=== PATIENT | male | born 1935 | race Caucasian/White ===

== ENCOUNTER 2018-09-01 14:25 | Inpatient (IN) | payer MEDICARE, SELFPAY ==
[2018-09-01 14:44] VITALS: BP 139/72; PULSE 68; RESP 16; TEMP 36.7; O2SAT 95; BMI 34.8
--- NOTE | 2018-09-01 14:44 | NURSING ---
pt arrived from [place] via cot
[2018-09-01 16:20] VITALS: BMI 34.7
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
--- NOTE | 2018-09-01 21:15 | RAD_ITS ---
STUDY: X-RAY - ABDOMEN/PELVIS REASON FOR EXAM: Male, 83 years old. Abdominal distention. TECHNIQUE: For frontal images of the abdomen were obtained. COMPARISON: None. FINDINGS: Normal visualized lung bases. There is a distended gas-filled loop of colon within the right abdomen. There is no demonstrated free abdominal air. The visualized liver, spleen and kidneys are grossly normal in size and morphology. Normal soft tissue structures. There are bilateral total hip arthroplasties in place. RAD/Abdomen Single View (Portable) IMPRESSION: Findings suspicious for a colonic obstruction. Electronically Signed: Cookie Wilder MD at 21:50 EST Tel , Service support ,
--- NOTE | 2018-09-01 21:15 | NURSING ---
Pt arrived with duragesic patch on right shoulder but had no order for it. New order to DC patch. Patch removed and flushed down toilet with ULISES Mehta.
--- NOTE | 2018-09-01 22:16 | NURSING ---
Dr. Henriquez updated on KUB results. NO for CT with contrast of abd and pelvis.
[2018-09-01] MEDS: Menthol/Lanolin/Calamine/Znox 113 GM Tube 1 APPLIC TOPICAL (22:30)
[2018-09-01] MEDS: Nystatin Powder 15gm Bottle 1 APPLIC TOPICAL (22:31)
[2018-09-02] MEDS: Polyethylene Glycol 3350 17 GM PACKET PO (05:25)
[2018-09-02] MEDS: Enoxaparin 40 MG/0.4 ML Syringe SC (05:25)
[2018-09-02] MEDS: Amiodarone 200 MG Tablet PO (05:25)
[2018-09-02] MEDS: Furosemide 40 MG Tablet PO (05:25)
[2018-09-02] MEDS: Pantoprazole Sodium 40 MG Tablet PO (05:25)
[2018-09-02] MEDS: Meloxicam 7.5 MG Tablet PO (05:25)
[2018-09-02] MEDS: Senna/Docusate Sodium 1 Tablet PO ×2 (05:26→18:12)
[2018-09-02] MEDS: oxyCODONE 5 MG Tablet PO (05:27)
[2018-09-02] MEDS: Nystatin Powder 15gm Bottle 1 APPLIC TOPICAL ×3 (05:29→20:02)
[2018-09-02] MEDS: Menthol/Lanolin/Calamine/Znox 113 GM Tube 1 APPLIC TOPICAL ×3 (05:30→20:02)
[2018-09-02 06:16] LABS: Absolute Lymphocyte Count 0.99 X10^3/ul (0.83-4.51); Absolute Neutrophil Count 3.7 X10^3/uL (2.0-7.7); Basophil# 0.04 X10^3/uL; Basophil% 0.7 % (0-1); Eosinophil# 0.47 X10^3/uL; Eosinophils% 7.8 % (0-5); Lymphocyte # 0.99 X10^3/ul (4.0); Lymphocyte % 16.5 % (19-41); Mean Corpuscular Hgb 31.6 pg (27.0-32.0); Mean Corpuscular Volume 98.8 fL (80-94); Mean Platelet Vol. 9.5 fl (6.2-12.0); Monocyte# 0.72 X10^3/uL; Neutrophil # 3.72 X10^3/uL (2.7-7.7); Neutrophil % 61.8 % (47-70); Platelet Count 299 K/mm3 (150-450); RBC Distribution Width CV 18.6 % (11.6-14.6); Red Blood Count 2.53 M/mm3 (4.6-6.2)
[2018-09-02 06:32] LABS: Anion Gap 10 (5-15); BUN 13 mg/dL (7-18); BUN/Creat Ratio 18.1 RATIO (10-20); Chloride 106 mmol/L (98-107); Creatinine, Serum 0.72 mg/dL (0.70-1.30); EST Glomerular Filtration Rate 112 mL/min (>60); Est Glom Filt Rate - Afr Amer 135 mL/min (>60); Estimated Creatinine Clearance 62.51 ml/min; Glucose 89 mg/dL (74-106); Potassium 3.2 mmol/L (3.5-5.1); Sodium Level 139 mmol/L (136-145)
[2018-09-02 06:45] LABS: POSITIVE COUNT NO; POSITIVE DIFFERENTIAL NO; POSITIVE MORPHOLOGY NO
[2018-09-02 09:35] VITALS: PULSE 75; RESP 18; O2SAT 98
[2018-09-02] MEDS: Tuberculin,Purif.prot.deriv. 50 TU/ML Vial 5 ML ID (10:09)
[2018-09-02] MEDS: Magnesium Citrate 300 ML PO (10:09)
--- NOTE | 2018-09-02 10:14 | CASEMGMT ---
Reviewed and approved attached social work student documentation. Leana CH, SUKHWINDER
--- NOTE | 2018-09-02 10:17 | CASEMGMT ---
Insurance Clinical information sent. Pending continued stay approval at this time. Auth#[id number] Leana CH, SUKHWINDER
--- NOTE | 2018-09-02 11:44 | NURSING ---
PT HAD A XTRA LARGE CLEAR EMESIS. REPORTED TO DERICK MCGILL
[2018-09-02 15:08] VITALS: BP 130/67; PULSE 73; RESP 20; TEMP 36.4; O2SAT 97
[2018-09-02] MEDS: Ondansetron ODT 4 MG Tablet PO (15:33)
--- NOTE | 2018-09-02 16:30 | NURSING ---
SOAP SUDS ENEMA GIVEN PER ORDER.
--- NOTE | 2018-09-02 16:46 | NURSING ---
Pt unable to consume oral contrast for CT. Dr Henriquez aware N.O. To consult general surg. Dr Vora requesting CT complete without contrast.
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
--- NOTE | 2018-09-02 22:52 | NURSING ---
Dr Henriquez and Dr Vora aware of CT results. Dr Henriquez ordered KUB for 0800 stat and SSE after KUB. Will continue to monitor and assess.
[2018-09-02] MEDS: Acetaminophen 500 MG Tablet 1000 MG PO (23:18)
[2018-09-03 06:00] LABS: ALB/GLOB Ratio 0.6 RATIO (0.9-2.4); AST(SGOT) 20 U/L (15-37); Alanine Aminotransfer ALT/SGPT 23 U/L (16-61); Albumin, Serum 2.2 g/dL (3.2-5.0); Alkaline Phosphatase 200 U/L (45-117); Anion Gap 8 (5-15); BUN 14 mg/dL (7-18); Calcium,Total 7.9 mg/dL (8.5-10.1); Chloride 106 mmol/L (98-107); Creatinine, Serum 0.64 mg/dL (0.70-1.30); EST Glomerular Filtration Rate 128 mL/min (>60); Est Glom Filt Rate - Afr Amer 155 mL/min (>60); Estimated Creatinine Clearance 62.51 ml/min; Globulin 3.9 g/dL (2.2-4.2); Glucose 93 mg/dL (74-106); Potassium 3.8 mmol/L (3.5-5.1); Protein, Total 6.1 g/dL (6.4-8.2); Sodium Level 140 mmol/L (136-145)
[2018-09-03 06:02] LABS: Lactic Acid 0.8 mmol/L (0.4-2.0)
[2018-09-03 06:39] VITALS: BP 146/74; PULSE 71; RESP 16; TEMP 36.8; O2SAT 97
[2018-09-03] MEDS: Polyethylene Glycol 3350 17 GM PACKET PO (06:41)
[2018-09-03] MEDS: Furosemide 40 MG Tablet PO (06:41)
[2018-09-03] MEDS: Enoxaparin 40 MG/0.4 ML Syringe SC (06:41)
[2018-09-03] MEDS: Bisacodyl 5 MG Tablet 10 MG PO (06:42)
[2018-09-03] MEDS: Pantoprazole Sodium 40 MG Tablet PO (06:42)
[2018-09-03] MEDS: Amiodarone 200 MG Tablet PO (06:42)
[2018-09-03] MEDS: Senna/Docusate Sodium 1 Tablet 2 TABLET PO (06:42)
[2018-09-03] MEDS: Nystatin Powder 15gm Bottle 1 APPLIC TOPICAL (06:43)
[2018-09-03] MEDS: Menthol/Lanolin/Calamine/Znox 113 GM Tube 1 APPLIC TOPICAL (06:43)
[2018-09-03] MEDS: Meloxicam 7.5 MG Tablet PO (06:44)
[2018-09-03 06:51] LABS: Absolute Lymphocyte Count 1.07 X10^3/ul (0.83-4.51); Absolute Neutrophil Count 3.7 X10^3/uL (2.0-7.7); Basophil# 0.05 X10^3/uL; Basophil% 0.8 % (0-1); Differential Indicated SCAN CRITERIA MET; Eosinophil# 0.56 X10^3/uL; Eosinophils% 8.9 % (0-5); Hematocrit 26.3 % (40-54); Hemoglobin 8.2 g/dl (13.0-16.5); Lymphocyte # 1.07 X10^3/ul (4.0); Lymphocyte % 16.9 % (19-41); Mean Corp Hgb Conc 31.2 g/gl (32-36); Mean Corpuscular Hgb 31.3 pg (27.0-32.0); Mean Corpuscular Volume 100.4 fL (80-94); Mean Platelet Vol. 9.2 fl (6.2-12.0); Monocyte# 0.92 X10^3/uL; Monocyte% 14.6 % (0-10); Neutrophil # 3.65 X10^3/uL (2.7-7.7); Neutrophil % 57.7 % (47-70); POSITIVE COUNT NO; POSITIVE DIFFERENTIAL NO; POSITIVE MORPHOLOGY YES; Platelet Count 346 K/mm3 (150-450); RBC Distribution Width CV 19.1 % (11.6-14.6); RBC Distribution Width SD 66.4 fl (35.1-43.9); Red Blood Count 2.62 M/mm3 (4.6-6.2); White Blood Count 6.3 K/mm3 (4.4-11.0)
[2018-09-03 07:30] LABS: Anisocytosis 1+; Differential Comment SCAN; Hypochromasia 1+; Microcytosis 1+; Polychromasia 1+
--- NOTE | 2018-09-03 10:20 | RAD_ITS ---
STUDY: X-RAY - ABDOMEN/PELVIS REASON FOR EXAM: Male, 83 years old. Constipation. TECHNIQUE: Two AP supine views of the abdomen and pelvis. COMPARISON: Comparison is made with prior study dated September 01, 2018. FINDINGS: There is dilatation of the cecum. The cecum measures 19.1 cm in transverse dimension. There is also evidence of mild dilatation of the transverse colon. Fecal material is seen in the rectosigmoid colon. A filter is seen within the inferior vena cava. The visualized liver, spleen and kidneys are grossly normal in size and morphology. Normal soft tissue structures. The patient is status post bilateral hip replacement. RAD/Abdomen Single View IMPRESSION: Distended cecum as described. Decompression of the cecum is recommended. Electronically Signed: Bruce Allan MD at 10:57 EST , Service support ,
--- NOTE | 2018-09-03 11:42 | NURSING ---
Addendum entered by Joaquina Blackwell 09/03/18 14:40: Pt to be picked up by [facility] and taken to [facility] at 3:30. Patient and family aware. Original Note: Addendum entered by Joaquina Blackwell 09/03/18 11:48: Message left for patient's , Siomara, regarding pending transfer. Original Note: Dr. Henriquez reviewed KUB results, NO to send to [place] for treatment. Dr. Henriquez to call hospital transfer line for [place] to get patient transferred.
--- NOTE | 2018-09-03 12:07 | NURSING ---
NO to make patient NPO, start D5 1/2 NS at 60mL/hr continuously.
[2018-09-03] MEDS: oxyCODONE 5 MG Tablet PO (12:19)
[2018-09-03] MEDS: Dext 5%-0.45% NS 1,000 ML 60 ML IV (12:33)
--- NOTE | 2018-09-03 13:25 | NURSING ---
Was consulted to see patient for increased drainage from the old trach site. Nurse states that patient is being transferred back to [place] today.
--- NOTE | 2018-09-03 14:02 | NURSING ---
Pt still in room so assessed the old trach site. removed dressing. there was a small amount of crusted drainage noted on the old dressing. so redness noted to the area around the trach site. no signs of infection and very minimal drainage. cleansed with soap and water. pat dry and applied a dry dressing. pt tolerated well. denies discomfort or needs. present at bedside.
--- NOTE | 2018-09-03 14:48 | CASEMGMT ---
Insurance Continued stay approved with next update due on 09/09/18. Auth#[id number] Leana CH, SUKHWINDER
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
[2018-09-03 15:19] VITALS: BP 139/52; PULSE 78; RESP 20; TEMP 36.9; O2SAT 93
--- NOTE | 2018-09-03 16:02 | CASEMGMT ---
Brief interview for mental status (BIMS) and resident mood interview (PHQ-9) completed on this day. BIMS score 15. PHQ-9 score 11/08
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
--- NOTE | 2018-09-04 14:34 | CASEMGMT ---
Insurance Notified insurance of resident discharge on 09/03/18 to [facility]. Auth#[id number] Leana CH, SUKHWINDER
--- NOTE | 2018-09-12 11:51 | MDS.RN ---
Information for the mds was obtained from review of the clinical record, interview of resident, staff, and direct observation of resident's care.
== END 2018-09-03 15:45 | disposition short-term general hospital (02) | DRG 560 ==
PROVIDERS: Admitting Provider Family Medicine Geriatric Medicine; Referring Provider Family Medicine Geriatric Medicine; Visit Provider Family Medicine Geriatric Medicine
DX: S72.451D Displaced supracondylar fracture without intracondylar extension of lower end of right femur, subsequent encounter for closed fracture with routine healing (principal); K56.7 Ileus, unspecified; S42.301D Unspecified fracture of shaft of humerus, right arm, subsequent encounter for fracture with routine healing; S72.302D Unspecified fracture of shaft of left femur, subsequent encounter for closed fracture with routine healing; S22.20XD Unspecified fracture of sternum, subsequent encounter for fracture with routine healing; S32.592D Other specified fracture of left pubis, subsequent encounter for fracture with routine healing; S82.101 Unspecified fracture of upper end of right tibia; S82.301E Unspecified fracture of lower end of right tibia, subsequent encounter for open fracture type I or II with routine healing; S42.101D Fracture of unspecified part of scapula, right shoulder, subsequent encounter for fracture with routine healing; S32.10XD Unspecified fracture of sacrum, subsequent encounter for fracture with routine healing; S22.49XD Multiple fractures of ribs, unspecified side, subsequent encounter for fracture with routine healing; S32.009D Unspecified fracture of unspecified lumbar vertebra, subsequent encounter for fracture with routine healing; V49.9XXD Car occupant (driver) (passenger) injured in unspecified traffic accident, subsequent encounter; I10 Essential (primary) hypertension; M19.90 Unspecified osteoarthritis, unspecified site; Z93.0 Tracheostomy status; E87.6 Hypokalemia; K21.9 Gastro-esophageal reflux disease without esophagitis; B35.4 Tinea corporis; I48.91 Unspecified atrial fibrillation; K63.89 Other specified diseases of intestine; D64.9 Anemia, unspecified
CPT/HCPCS: 36415; 74018; 80048; 80053; 83605; 85025; 92507; 92526; 92610; 97110; 97163; 97167; 97530; 97802; J7799

== ENCOUNTER → 2018-09-02 10:50 | Outpatient (CLI) | payer MEDICARE, SELFPAY ==
[2018-09-01 16:20] VITALS: BMI 34.7
--- NOTE | 2018-09-02 11:13 | CT_ITS ---
We are attempting to reach Hank Henriquez MD to discuss findings. An addendum with communication details will be sent when the communication is complete. STUDY: CT ABDOMEN AND PELVIS WITHOUT CONTRAST REASON FOR EXAM: Male, 83 years old. Suspicious colonic obstruction. RADIATION DOSAGE (If Supplied By Facility): CTDIvol = ( 33.67 ) mGy, DLP = ( 1833.70 ) mGycm TECHNIQUE: Transaxial images were obtained from the dome of the diaphragm to the symphysis pubis without oral contrast, and without intravenous contrast. Sagittal and coronal images were reconstructed. Individualized dose optimization techniques were used for this CT. COMPARISON: None. FINDINGS: There are bilateral pleural effusions, right greater than left. The visualized portions of the heart are within normal limits. Please note the lack of intravenous contrast limits evaluation of solid visceral organs. Normal liver. Normal gallbladder and extrahepatic biliary system. Normal spleen. Normal pancreas. Normal bilateral adrenal glands. Normal right kidney. Normal left kidney. There is a small hiatal hernia. Normal small intestine. There is dilatation of the cecum. There is mild circumferential wall thickening of the colon. There is intramural gas noted within the cecum consistent with pneumatosis intestinalis. The appendix is visualized and appears normal. There is diffuse atherosclerotic calcification of the abdominal aorta, without a demonstrated aneurysm. There is an IVC filter in place. Normal retroperitoneum. There appears to be a Powell catheter within the urinary bladder. Normal abdominal wall. The bones are diffusely demineralized. There are bilateral L1, L2, L4 and L5 transverse process fractures. There is a right L3 transverse process fracture noted as well. There are bilateral sacral fractures. In addition there is a fracture within the medial wall of the right acetabulum associated with right superior and inferior pubic rami fractures. There are right fifth, sixth, seventh, eighth and 12th rib fractures several associated with periosteal bone formation. There are bilateral hip arthroplasties obscuring anatomic detail within the pelvis. CT/Abdomen/Pelvis without Cont IMPRESSION: Dilated cecum may be secondary to a cecal ileus associated with pneumatosis intestinalis. Circumferential wall thickening of the colon this may be secondary to its incompletely distended state however cannot exclude underlying colitis. Multiple right rib fractures associated with a right pleural effusion. Bilateral sacral fractures, may reflect sacral insufficiency fractures. Comminuted left superior and inferior pubic rami fractures associated with a fracture involving the medial wall of the left acetabulum. L1-L5 transverse process fractures. Electronically Signed: Cookie Wilder MD at 17:40 EST Tel , Service support ,
== END ==
PROVIDERS: Referring Provider Family Medicine Geriatric Medicine; Visit Provider Family Medicine Geriatric Medicine
DX: K63.89 Other specified diseases of intestine (principal); K44.9 Diaphragmatic hernia without obstruction or gangrene; S22.41XA Multiple fractures of ribs, right side, initial encounter for closed fracture; J90 Pleural effusion, not elsewhere classified; S32.10XA Unspecified fracture of sacrum, initial encounter for closed fracture; S32.592A Other specified fracture of left pubis, initial encounter for closed fracture; S32.472A Displaced fracture of medial wall of left acetabulum, initial encounter for closed fracture; S32.019A Unspecified fracture of first lumbar vertebra, initial encounter for closed fracture; S32.029A Unspecified fracture of second lumbar vertebra, initial encounter for closed fracture; S32.039A Unspecified fracture of third lumbar vertebra, initial encounter for closed fracture; S32.049A Unspecified fracture of fourth lumbar vertebra, initial encounter for closed fracture; S32.059A Unspecified fracture of fifth lumbar vertebra, initial encounter for closed fracture; X58.XXXA Exposure to other specified factors, initial encounter; Y93.9 Activity, unspecified; Y92.9 Unspecified place or not applicable
CPT/HCPCS: 74176; Q9967

== ENCOUNTER 2018-09-10 14:57 | Inpatient (IN) | payer MEDICARE, SELFPAY ==
[2018-09-10 15:04] VITALS: BP 156/69; PULSE 72; RESP 18; TEMP 37; O2SAT 98
[2018-09-10 16:17] VITALS: BMI 29.8
[2018-09-10 16:22] VITALS: BMI 29.8
--- NOTE | 2018-09-10 17:01 | NURSING ---
Pt arrived at 1450 via cot.
[2018-09-10] MEDS: Bisacodyl 5 MG Tablet 10 MG PO (17:59)
[2018-09-10] MEDS: APIXABAN 5 MG TABLET 10 MG PO (18:00)
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
[2018-09-10] MEDS: Menthol/Lanolin/Calamine/Znox 113 GM Tube 1 APPLIC TOPICAL (21:02)
[2018-09-10] MEDS: Nystatin Powder 15gm Bottle 1 APPLIC TOPICAL (21:03)
[2018-09-10] MEDS: Acetaminophen 500 MG Tablet 1000 MG PO (21:05)
--- NOTE | 2018-09-10 22:21 | NURSING ---
Pt c/o of aching 7/10 pain to BLE and BUE. Medicated with 1,000mg Tylenol @ 2104. Dr Henriquez notified. N.O. for oxyir 5mg q4hr PRN. Will continue to monitor.
[2018-09-10] MEDS: oxyCODONE 5 MG Tablet PO (22:30)
[2018-09-11] MEDS: Menthol/Lanolin/Calamine/Znox 113 GM Tube 1 APPLIC TOPICAL ×3 (05:01→19:56)
[2018-09-11] MEDS: Nystatin Powder 15gm Bottle 1 APPLIC TOPICAL ×3 (05:01→19:57)
[2018-09-11] MEDS: APIXABAN 5 MG TABLET 10 MG PO ×2 (05:02→16:36)
[2018-09-11] MEDS: Amiodarone 200 MG Tablet PO (05:02)
[2018-09-11] MEDS: Lidocaine 5% Patch 1 PATCH TOPICAL (05:03)
[2018-09-11] MEDS: Pantoprazole Sodium 20 MG Tablet PO (05:03)
[2018-09-11] MEDS: Acetaminophen 500 MG Tablet 1000 MG PO ×3 (05:42→19:48)
[2018-09-11 07:15] LABS: Absolute Lymphocyte Count 1.07 X10^3/ul (0.83-4.51); Absolute Neutrophil Count 3.8 X10^3/uL (2.0-7.7); Basophil# 0.05 X10^3/uL; Basophil% 0.8 % (0-1); Eosinophil# 0.32 X10^3/uL; Eosinophils% 5.3 % (0-5); Hematocrit 27.3 % (40-54); Hemoglobin 8.8 g/dl (13.0-16.5); Lymphocyte # 1.07 X10^3/ul (4.0); Lymphocyte % 17.8 % (19-41); Mean Corp Hgb Conc 32.2 g/gl (32-36); Mean Corpuscular Hgb 31.9 pg (27.0-32.0); Mean Corpuscular Volume 98.9 fL (80-94); Mean Platelet Vol. 8.3 fl (6.2-12.0); Monocyte# 0.71 X10^3/uL; Monocyte% 11.8 % (0-10); Neutrophil # 3.82 X10^3/uL (2.7-7.7); Neutrophil % 63.5 % (47-70); Platelet Count 294 K/mm3 (150-450); RBC Distribution Width CV 18.9 % (11.6-14.6); RBC Distribution Width SD 67.7 fl (35.1-43.9); Red Blood Count 2.76 M/mm3 (4.6-6.2)
[2018-09-11 07:25] LABS: Anion Gap 5 (5-15); BUN 11 mg/dL (7-18); BUN/Creat Ratio 15.4 RATIO (10-20); Calcium,Total 8.1 mg/dL (8.5-10.1); Chloride 108 mmol/L (98-107); Creatinine, Serum 0.72 mg/dL (0.70-1.30); Differential Indicated SCAN CRITERIA MET; EST Glomerular Filtration Rate 112 mL/min (>60); Est Glom Filt Rate - Afr Amer 135 mL/min (>60); Estimated Creatinine Clearance 64.36 ml/min; Glucose 96 mg/dL (74-106); POSITIVE COUNT NO; POSITIVE DIFFERENTIAL NO; POSITIVE MORPHOLOGY YES; Potassium 3.4 mmol/L (3.5-5.1); Sodium Level 137 mmol/L (136-145)
[2018-09-11 08:21] LABS: Anisocytosis 1+; Schistocytes RARE
[2018-09-11] MEDS: Multivitamins,Therapeutic Tablet 1 TABLET PO (08:21)
[2018-09-11] MEDS: oxyCODONE 5 MG Tablet PO ×2 (09:50→23:41)
[2018-09-11 10:00] VITALS: PULSE 82
--- NOTE | 2018-09-11 10:51 | CASEMGMT ---
Brief interview for mental status (BIMS) and mood (PHQ-9) completed on this day. BIMS score 02/26. PHQ-9 score 08/10. Matt Blancas social work student
[2018-09-11] MEDS: Tuberculin,Purif.prot.deriv. 50 TU/ML Vial 5 ML ID (11:16)
--- NOTE | 2018-09-11 14:34 | NURSING ---
Addendum entered by Melanie Trammell 09/13/18 15:15: [place] and sutures removed per Colt SEPULVEDA who received MD order Original Note: Pt staple and sutures removed per order. Incisions appear well approximated with no drainage noted. Pt tolerated procedure well with no complaints. Pt in bed with head of bed elevated and call light within reach.
--- NOTE | 2018-09-11 15:19 | CASEMGMT ---
Reviewed and approved attached social work student documentation. Leana CH, SUKHWINDER
[2018-09-11 16:00] VITALS: BP 158/85; PULSE 70; RESP 16; TEMP 36.4; O2SAT 96
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
[2018-09-11] MEDS: Bisacodyl 5 MG Tablet 10 MG PO (16:37)
--- NOTE | 2018-09-11 18:40 | NURSING ---
contacted Dr. Westbrook's office multiple times (3) today, no response at end of day, alyssa and sutures removed per Dr. Henriquez, try to contact regarding when to F/U
[2018-09-12] MEDS: Acetaminophen 500 MG Tablet 1000 MG PO ×2 (04:41→17:25)
[2018-09-12] MEDS: Lidocaine 5% Patch 1 PATCH TOPICAL (04:42)
[2018-09-12] MEDS: Pantoprazole Sodium 20 MG Tablet PO (04:42)
[2018-09-12] MEDS: Amiodarone 200 MG Tablet PO (04:42)
[2018-09-12] MEDS: Bisacodyl 5 MG Tablet 10 MG PO ×2 (04:42→17:14)
[2018-09-12] MEDS: APIXABAN 5 MG TABLET 10 MG PO ×2 (04:42→17:13)
[2018-09-12] MEDS: Senna/Docusate Sodium 1 Tablet 2 TABLET PO ×2 (04:42→17:12)
[2018-09-12] MEDS: Polyethylene Glycol 3350 17 GM PACKET PO (04:53)
[2018-09-12] MEDS: Nystatin Powder 15gm Bottle 1 APPLIC TOPICAL ×3 (04:55→20:51)
[2018-09-12] MEDS: Menthol/Lanolin/Calamine/Znox 113 GM Tube 1 APPLIC TOPICAL ×3 (04:55→20:50)
--- NOTE | 2018-09-12 08:25 | NURSING ---
NO to D/C lidoderm patch and start bacitracin to trach site BID.
[2018-09-12] MEDS: Iron Polysaccharide Complex 150 MG CAPSULE PO (08:41)
--- NOTE | 2018-09-12 09:32 | NURSING ---
Per pharmacyjulieth to crush MVI.
[2018-09-12] MEDS: Multivitamins,Therapeutic Tablet 1 TABLET PO (09:57)
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
--- NOTE | 2018-09-12 11:10 | RAD_ITS ---
STUDY: X-RAY - RIGHT KNEE REASON FOR EXAM: Male, 83 years old. Fracture TECHNIQUE: AP and lateral view(s) of the knee. COMPARISON: None. FINDINGS: There is a total knee prosthesis. There is also a surgical plate and screws transfixing the comminuted fracture distal diaphysis metaphysis of the femur which is only partially included on [id number]. There is an oblique fracture with mild periosteal reaction at the proximal diaphysis of the fibula. There is no visualized periosteal reaction or evidence of healing at the level of the femur fracture. There is significant generalized osteopenia. Small bony density superior to the patella which are postsurgical versus tiny avulsion fractures. There is also intramedullary shanta within the tibia.. RAD/Knee 1 or 2 Views IMPRESSION: Orthopedic knee hardware and fractures as above Electronically Signed: Christiano Brownlee, at 17:56 EST Tel , Service support ,
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
--- NOTE | 2018-09-12 11:11 | NURSING ---
Fax order from Dr. Westbrook: right humerous xray, BL femur xrays, right knee xray and right tib/fib xray. Send results to Dr. Russell Westbrook, [address] [place], [address]
[2018-09-12] MEDS: oxyCODONE 5 MG Tablet PO (11:27)
[2018-09-12 15:25] VITALS: BP 145/78; PULSE 71; RESP 20; TEMP 37; O2SAT 93
[2018-09-12 20:58] VITALS: PULSE 73; RESP 18; O2SAT 96
[2018-09-12] MEDS: BACITRACIN 15 GM Tube 1 APPLIC TOPICAL (22:26)
[2018-09-13] MEDS: oxyCODONE 5 MG Tablet PO ×3 (01:47→20:34)
[2018-09-13] MEDS: Nystatin Powder 15gm Bottle 1 APPLIC TOPICAL ×3 (05:58→19:38)
[2018-09-13] MEDS: Menthol/Lanolin/Calamine/Znox 113 GM Tube 1 APPLIC TOPICAL ×3 (05:58→19:39)
[2018-09-13] MEDS: BACITRACIN 15 GM Tube 1 APPLIC TOPICAL ×2 (05:59→19:33)
[2018-09-13] MEDS: Bisacodyl 5 MG Tablet 10 MG PO ×2 (06:00→17:02)
[2018-09-13] MEDS: Pantoprazole Sodium 20 MG Tablet PO (06:00)
[2018-09-13] MEDS: APIXABAN 5 MG TABLET 10 MG PO ×2 (06:00→17:02)
[2018-09-13] MEDS: Senna/Docusate Sodium 1 Tablet 2 TABLET PO ×2 (06:00→17:02)
[2018-09-13] MEDS: Amiodarone 200 MG Tablet PO (06:00)
[2018-09-13 07:21] LABS: Anion Gap 8 (5-15); BUN 15 mg/dL (7-18); BUN/Creat Ratio 25.8 RATIO (10-20); Calcium,Total 8.3 mg/dL (8.5-10.1); Chloride 106 mmol/L (98-107); Creatinine, Serum 0.58 mg/dL (0.70-1.30); EST Glomerular Filtration Rate 142 mL/min (>60); Est Glom Filt Rate - Afr Amer 172 mL/min (>60); Estimated Creatinine Clearance 64.36 ml/min; Glucose 94 mg/dL (74-106); Potassium 3.7 mmol/L (3.5-5.1); Sodium Level 140 mmol/L (136-145)
[2018-09-13] MEDS: Iron Polysaccharide Complex 150 MG CAPSULE PO (08:15)
[2018-09-13] MEDS: Multivitamins,Therapeutic Tablet 1 TABLET PO (08:16)
--- NOTE | 2018-09-13 11:41 | NURSING ---
This nurse in to assist patient with rolling off bedpan. Notice that the proximal part of his left hip incision was starting to open. This nurse applied two steri strips to incision at this time. Esther SEPULVEDA aware.
[2018-09-13] MEDS: Acetaminophen 500 MG Tablet 1000 MG PO (15:46)
[2018-09-13 16:00] VITALS: BP 146/76; PULSE 74; RESP 18; TEMP 36.8; O2SAT 98
[2018-09-14] MEDS: Amiodarone 200 MG Tablet PO (05:42)
[2018-09-14] MEDS: APIXABAN 5 MG TABLET 10 MG PO ×2 (05:42→17:02)
[2018-09-14] MEDS: Senna/Docusate Sodium 1 Tablet 2 TABLET PO ×2 (05:42→17:02)
[2018-09-14] MEDS: Bisacodyl 5 MG Tablet 10 MG PO ×2 (05:43→17:02)
[2018-09-14] MEDS: Polyethylene Glycol 3350 17 GM PACKET PO (05:43)
[2018-09-14] MEDS: Acetaminophen 500 MG Tablet 1000 MG PO (05:50)
[2018-09-14] MEDS: BACITRACIN 15 GM Tube 1 APPLIC TOPICAL ×2 (05:51→19:26)
[2018-09-14] MEDS: Pantoprazole Sodium 20 MG Tablet PO (05:52)
[2018-09-14] MEDS: Menthol/Lanolin/Calamine/Znox 113 GM Tube 1 APPLIC TOPICAL ×3 (05:58→19:27)
[2018-09-14] MEDS: Nystatin Powder 15gm Bottle 1 APPLIC TOPICAL ×3 (05:58→19:27)
[2018-09-14] MEDS: Multivitamins,Therapeutic Tablet 1 TABLET PO (08:05)
[2018-09-14] MEDS: Iron Polysaccharide Complex 150 MG CAPSULE PO (08:11)
[2018-09-14] MEDS: oxyCODONE 5 MG Tablet PO ×2 (08:13→17:03)
[2018-09-14 10:00] VITALS: PULSE 82; RESP 18; O2SAT 94
[2018-09-14 16:00] VITALS: BP 140/74; PULSE 72; RESP 18; TEMP 36.2; O2SAT 98
[2018-09-15] MEDS: oxyCODONE 5 MG Tablet PO ×4 (02:26→23:52)
[2018-09-15] MEDS: BACITRACIN 15 GM Tube 1 APPLIC TOPICAL ×2 (06:10→20:03)
[2018-09-15] MEDS: Bisacodyl 5 MG Tablet 10 MG PO ×2 (06:11→18:16)
[2018-09-15] MEDS: Amiodarone 200 MG Tablet PO (06:11)
[2018-09-15] MEDS: Senna/Docusate Sodium 1 Tablet 2 TABLET PO ×2 (06:11→18:16)
[2018-09-15] MEDS: Polyethylene Glycol 3350 17 GM PACKET PO (06:11)
[2018-09-15] MEDS: APIXABAN 5 MG TABLET 10 MG PO ×2 (06:11→18:17)
[2018-09-15] MEDS: Menthol/Lanolin/Calamine/Znox 113 GM Tube 1 APPLIC TOPICAL ×3 (06:12→20:01)
[2018-09-15] MEDS: Nystatin Powder 15gm Bottle 1 APPLIC TOPICAL ×3 (06:12→20:01)
[2018-09-15] MEDS: Pantoprazole Sodium 20 MG Tablet PO (06:21)
[2018-09-15] MEDS: Iron Polysaccharide Complex 150 MG CAPSULE PO (08:05)
[2018-09-15] MEDS: Multivitamins,Therapeutic Tablet 1 TABLET PO (09:32)
[2018-09-15 10:45] VITALS: PULSE 77; RESP 18; O2SAT 96
--- NOTE | 2018-09-15 10:51 | CASEMGMT ---
Insurance Clinical information sent. Pending continued stay approval. Auth#[id number] Leana CH, SUKHWINDER
--- NOTE | 2018-09-15 11:04 | NURSING ---
CRACKLES TO PT RIGHT MIDDLE AND LOWER LOBE. I.S GIVEN. REPORTED TO DERICK BELL
[2018-09-15 15:57] VITALS: BP 139/77; PULSE 74; RESP 18; TEMP 36.7; O2SAT 98
--- NOTE | 2018-09-15 16:07 | CASEMGMT ---
Insurance Continued stay approved with next update due on 09/22/18 Auth#[id number] Leana CH, SUKHWINDER
[2018-09-15] MEDS: MELATONIN 10 MG TABLET PO (20:04)
--- NOTE | 2018-09-15 23:57 | NURSING ---
Addendum entered by Gillian Farrell 09/16/18 08:07: Dr Henriquez aware. N.O. clean cath UA. Original Note: [facility] Tender notified this nurse that while patient was using urinal he noted blood. This nurse and the RN went to assess the patient noted redness at the tip of penis head and a small clot while cleansing area. Patient stated he felt burning sometimes when he used the urinal. Will continue to monitor the area and patient.
[2018-09-16] MEDS: BACITRACIN 15 GM Tube 1 APPLIC TOPICAL ×2 (04:50→21:11)
[2018-09-16] MEDS: Nystatin Powder 15gm Bottle 1 APPLIC TOPICAL ×3 (04:50→21:11)
[2018-09-16] MEDS: Amiodarone 200 MG Tablet PO (04:51)
[2018-09-16] MEDS: Senna/Docusate Sodium 1 Tablet 2 TABLET PO ×2 (04:51→17:46)
[2018-09-16] MEDS: Menthol/Lanolin/Calamine/Znox 113 GM Tube 1 APPLIC TOPICAL ×3 (04:51→21:24)
[2018-09-16] MEDS: Polyethylene Glycol 3350 17 GM PACKET PO (04:51)
[2018-09-16] MEDS: Bisacodyl 5 MG Tablet 10 MG PO ×2 (04:51→17:46)
[2018-09-16] MEDS: Pantoprazole Sodium 20 MG Tablet PO (05:04)
[2018-09-16] MEDS: oxyCODONE 5 MG Tablet PO ×4 (05:12→22:18)
[2018-09-16] MEDS: Iron Polysaccharide Complex 150 MG CAPSULE PO (08:50)
[2018-09-16] MEDS: APIXABAN 5 MG TABLET PO ×2 (08:50→17:46)
[2018-09-16] MEDS: Multivitamins,Therapeutic Tablet 1 TABLET PO (08:50)
--- NOTE | 2018-09-16 09:29 | CASEMGMT ---
Brief interview for mental status (BIMS) and resident mood interview (PHQ-9) completed on this day. BIMS score 15. PHQ-9 score 09/10
[2018-09-16 10:24] LABS: Mucous, Urine 0 SEEN /hpf (<or=2+)
[2018-09-16 10:28] LABS: Color, Urine Yellow (Yellow); Glucose, Dipstick Normal (Normal); Ketone-Dipstick Negative (Negative); Leukocyte Esterase-Dipstick 500 /ul (Negative); Nitrite-Dipstick Positive (Negative); Occult Blood-Urine 150 /ul (Negative); Protein-Dipstick 30 mg/dl (Negative); Specific Gravity, Urine 1.015 (1.002-1.030); Urine Bilirubin Dipstick Negative (Negative); Urine Clarity Cloudy (Clear); Urine Urobilinogen Normal (Normal)
[2018-09-16 10:43] LABS: Bacteria 2+ /hpf (None Seen); Red Blood Cells-Urine 10-25 SEEN /hpf (0-5); Squamous Epithelial Cells - UA 0-5 SEEN /hpf (0-5); White Blood Cells 25-50 SEEN /hpf (0-5)
--- NOTE | 2018-09-16 13:27 | PHA.CONS_ITS ---
<JordanjohnmelAdrian D - Last Filed: 09/16/18 13:26> Progress Note - Pharmacy Subjective: TCU Admission Objective: Allergies apple Allergy (Verified 09/01/18 15:30) Rash Penicillins [PCN] Allergy (Verified 09/01/18 15:30) Rash Current Medications Generic Name Dose Route Start Last Admin Trade Name Freq PRN Reason Stop Dose Admin Acetaminophen 1,000 mg 09/10/18 18:44 09/14/18 05:50 Tylenol PO 1,000 mg Q6H PRN PRN Administration PAIN Amiodarone HCl 200 mg 09/11/18 06:00 09/16/18 04:51 Cordarone PO 200 mg DAILY BETH Administration Apixaban 5 mg 09/16/18 06:00 09/16/18 08:50 Eliquis PO 5 mg BID BETH Administration Bacitracin 1 applic 09/12/18 22:00 09/16/18 04:50 Bacitracin Ointment TOPICAL 1 applicatio 0600,2200 BETH Administration Protocol Bisacodyl 10 mg 09/10/18 18:00 09/16/18 04:51 Dulcolax PO 10 mg BID BETH Administration Calamine/Phenol 1 applic 09/10/18 22:00 09/16/18 04:51 Calmoseptine Ointment TOPICAL 1 applicatio TID BETH Administration Protocol Cefdinir 300 mg 09/16/18 18:00 Omnicef [Equiv] PO 09/24/18 20:00 Q12 BETH Melatonin 10 mg 09/15/18 22:00 09/15/18 20:04 Melatonin PO 10 mg QHS BETH Administration Multivitamins 1 tablet 09/11/18 08:00 09/16/18 08:50 Multivitamin PO 1 tablet DAILY@0800 BTEH Administration Nystatin 1 applic 09/10/18 22:00 09/16/18 04:50 Mycostatin Powder TOPICAL 1 applicatio TID [facility] Administration Protocol Oxycodone HCl 5 mg 09/10/18 22:20 09/16/18 10:52 Oxyir PO 5 mg Q4H PRN PRN Administration MOD-SEVERE PAIN (4-10/10) Pantoprazole Sodium 20 mg 09/11/18 06:00 09/16/18 05:04 Protonix PO 20 mg DAILY BETH Administration Polyethylene Glycol 17 gm 09/11/18 06:00 09/16/18 04:51 Miralax PO 17 gm DAILY BETH Administration Polysaccharide Iron Complex 150 mg 09/12/18 08:00 09/16/18 08:50 Ferrex 150 PO 150 mg DAILYCM BETH Administration Potassium Chloride 20 meq 09/12/18 08:00 09/16/18 08:50 K-Dur PO 20 meq DAILYCM BETH Administration Senna/Docusate Sodium 2 tablet 09/11/18 06:00 09/16/18 04:51 Senokot-S, Herminia-Colace PO 2 tablet BID BETH Administration Tuberculin PPD 5 tu 09/18/18 10:00 Tubersol, Aplisol, Ppd ID 09/18/18 10:01 X1 ONE Problem List Atrial fibrillation (Acute) DVT (deep venous thrombosis) (Acute) GERD (gastroesophageal reflux disease) (Chronic) Small bowel obstruction (Acute) Pneumocytosis (Acute) Vital Signs Temp Pulse Resp BP Pulse Ox 98.1 F 74 18 139/77 H 98 09/15/18 15:57 09/15/18 15:57 09/15/18 15:57 09/15/18 15:57 09/15/18 15:57 Oxygen Delivery Method Room Air Weight: 102.5 kg Body Mass Index (BMI) 29.8 Sodium 140 mmol/L (136-145) 09/13/18 06:15 Potassium 3.7 mmol/L (3.5-5.1) 09/13/18 06:15 Chloride 106 mmol/L (98-107) 09/13/18 06:15 Carbon Dioxide 26.0 mmol/L (21.0-32.0) 09/13/18 06:15 Anion Gap 8 (5-15) 09/13/18 06:15 BUN 15 mg/dL (7-18) 09/13/18 06:15 Creatinine 0.58 mg/dL (0.70-1.30) L 09/13/18 06:15 Est GFR (MDRD) Af Amer 172 mL/min (>60) 09/13/18 06:15 Est GFR (MDRD) Non-Af 142 mL/min (>60) 09/13/18 06:15 BUN/Creatinine Ratio 25.8 RATIO (10-20) H 09/13/18 06:15 Glucose 94 mg/dL (74-106) 09/13/18 06:15 Assessment/Plan: * 1) Pain APAP for pain, oxycodone for moderate-severe pain. Continue to monitor daily pain scores, prn medication use. * oxycodone and APAP instructions overlap. Please clarify, thank you. 2) Afib Amiodarone, apixaban. Continue to monitor BP/HR, renal function, for bleeding/clot. 3) ID Cefdinir twice daily until 09/24. Urine culture pending. Continue to monitor s/s infection. 4) GI Pantoprazole daily. Continue to monitor for GI distress. 5) Sleep Melatonin at HS. Continue to monitor for insomnia. Psychotropic Medications: None Unnecessary Medications: None Bowel Regimen: 6) Senna/s, PEG, bisacodyl. Continue to monitor for constipation/diarrhea. Date of Note:: 09/16/18 - Provider Comments Provider responsibility: Provider responsible to enter orders to implement recommendations <Hank Henriquez Chi - Last Filed: 09/16/18 17:47> Progress Note - Pharmacy Subjective: [] Objective: Allergies apple Allergy (Verified 09/01/18 15:30) Rash Penicillins [PCN] Allergy (Verified 09/01/18 15:30) Rash Current Medications Generic Name Dose Route Start Last Admin Trade Name Freq PRN Reason Stop Dose Admin Acetaminophen 1,000 mg 09/10/18 18:44 09/14/18 05:50 Tylenol PO 1,000 mg Q6H PRN PRN Administration PAIN Amiodarone HCl 200 mg 09/11/18 06:00 09/16/18 04:51 Cordarone PO 200 mg DAILY BETH Administration Apixaban 5 mg 09/16/18 06:00 09/16/18 08:50 Eliquis PO 5 mg BID BETH Administration Bacitracin 1 applic 09/12/18 22:00 09/16/18 04:50 Bacitracin Ointment TOPICAL 1 applicatio 0600,2200 BETH Administration Protocol Bisacodyl 10 mg 09/10/18 18:00 09/16/18 04:51 Dulcolax PO 10 mg BID BETH Administration Calamine/Phenol 1 applic 09/10/18 22:00 09/16/18 14:15 Calmoseptine Ointment TOPICAL 1 applicatio TID BETH Administration Protocol Cefdinir 300 mg 09/16/18 18:00 Omnicef [Equiv] PO 09/24/18 20:00 Q12 BETH Melatonin 10 mg 09/15/18 22:00 09/15/18 20:04 Melatonin PO 10 mg QHS BETH Administration Multivitamins 1 tablet 09/11/18 08:00 09/16/18 08:50 Multivitamin PO 1 tablet DAILY@0800 BETH Administration Nystatin 1 applic 09/10/18 22:00 09/16/18 14:14 Mycostatin Powder TOPICAL 1 applicatio TID BETH Administration Protocol Oxycodone HCl 5 mg 09/10/18 22:20 09/16/18 10:52 Oxyir PO 5 mg Q4H PRN PRN Administration MOD-SEVERE PAIN (4-10/10) Pantoprazole Sodium 20 mg 09/11/18 06:00 09/16/18 05:04 Protonix PO 20 mg DAILY BETH Administration Polyethylene Glycol 17 gm 09/11/18 06:00 09/16/18 04:51 Miralax PO 17 gm DAILY BETH Administration Polysaccharide Iron Complex 150 mg 09/12/18 08:00 09/16/18 08:50 Ferrex 150 PO 150 mg DAILYCM [facility] Administration Potassium Chloride 20 meq 09/12/18 08:00 09/16/18 08:50 K-Dur PO 20 meq DAILYCM [facility] Administration Senna/Docusate Sodium 2 tablet 09/11/18 06:00 09/16/18 04:51 Senokot-S, Herminia-Colace PO 2 tablet BID BETH Administration Tuberculin PPD 5 tu 09/18/18 10:00 Tubersol, Aplisol, Ppd ID 09/18/18 10:01 X1 ONE Problem List Atrial fibrillation (Acute) DVT (deep venous thrombosis) (Acute) GERD (gastroesophageal reflux disease) (Chronic) Small bowel obstruction (Acute) Pneumocytosis (Acute) Vital Signs Temp Pulse Resp BP Pulse Ox 98.3 F 78 20 H 132/70 H 94 09/16/18 15:39 09/16/18 15:39 09/16/18 15:39 09/16/18 15:39 09/16/18 15:39 Oxygen Delivery Method Room Air Weight: 102.5 kg Body Mass Index (BMI) 29.8 Sodium 140 mmol/L (136-145) 09/13/18 06:15 Potassium 3.7 mmol/L (3.5-5.1) 09/13/18 06:15 Chloride 106 mmol/L (98-107) 09/13/18 06:15 Carbon Dioxide 26.0 mmol/L (21.0-32.0) 09/13/18 06:15 Anion Gap 8 (5-15) 09/13/18 06:15 BUN 15 mg/dL (7-18) 09/13/18 06:15 Creatinine 0.58 mg/dL (0.70-1.30) L 09/13/18 06:15 Est GFR (MDRD) Af Amer 172 mL/min (>60) 09/13/18 06:15 Est GFR (MDRD) Non-Af 142 mL/min (>60) 09/13/18 06:15 BUN/Creatinine Ratio 25.8 RATIO (10-20) H 09/13/18 06:15 Glucose 94 mg/dL (74-106) 09/13/18 06:15 Assessment/Plan: Psychotropic Medications: Unnecessary Medications: Bowel Regimen: - Provider Comments Provider responsibility: Provider responsible to enter orders to implement recommendations Provider Comments to Recommendations by Pharmacy: Agree
[2018-09-16 14:00] VITALS: PULSE 77; RESP 18; O2SAT 98
--- NOTE | 2018-09-16 14:10 | NURSING ---
late entry: Dr. Henriquez notified of UA results, new orders.
[2018-09-16 15:39] VITALS: BP 132/70; PULSE 78; RESP 20; TEMP 36.8; O2SAT 94
--- NOTE | 2018-09-16 16:46 | NURSING ---
PT COMPLAINING OF LEFT HAND HURTING WHEN YOU BARELY TOUCH IT. HAND SWOLLEN X2 NON PITTING. ELEVATED LEFT ARM AND HAND. REPORTED TO DERICK BOOKER
[2018-09-16] MEDS: Cefdinir 300 MG Capsule PO (17:48)
--- NOTE | 2018-09-16 18:03 | RAD_ITS ---
STUDY: X-RAY - LEFT HAND REASON FOR EXAM: Male, 83 years old. Pain and soft tissue swelling. No known injury. TECHNIQUE: 2 view(s) of the hand. COMPARISON: None. FINDINGS: There is joint space narrowing of the radiocarpal articulation consistent with degenerative arthrosis. Normal distal radioulnar joint. Normal visualized carpal bones. There is widening of the space between the lunate bone and scaphoid bone in keeping with ligamentous injury. There is degenerative arthrosis of the carpometacarpal articulation of the thumb with lateral subluxation of the first metacarpus. Normal second through fifth carpometacarpal joints. Nondisplaced transverse fracture along the distal aspect of the fifth metacarpal with overlying soft tissue swelling. Normal metacarpophalangeal joint of the thumb. There is degenerative arthrosis of the interphalangeal joint of the thumb with articular joint space narrowing. Normal proximal and distal phalanges of the thumb. Normal metacarpophalangeal joints of the second through fifth fingers. There is diffuse articular joint space narrowing of the proximal and distal interphalangeal joints of the second through fifth fingers, but without erosive changes or periarticular soft tissue swelling. Normal phalanges of the second through fifth fingers. Soft tissue swelling. RAD/Hand 2 Views IMPRESSION: Degenerative changes. Nondisplaced fracture through the distal aspect of the fifth metacarpal with overlying soft tissue swelling. Abnormal articulation between the scaphoid and lunate bone suggestive of ligamentous injury. Electronically Signed: Bruce Allan, at 13:16 EST , Service support ,
--- NOTE | 2018-09-16 18:03 | RAD_ITS ---
STUDY: X-RAY - LEFT RADIUS AND ULNA REASON FOR EXAM: Male, 83 years old. Pain TECHNIQUE: 2 view(s) of the forearm. COMPARISON: None. FINDINGS: Common extensor tendinitis. Multifocal carpocarpal osteoarthritis. Radiocarpal osteoarthritis. No acute fractures or osteolytic lesions. RAD/Forearm 2 Views IMPRESSION: Common extensor tendinitis. No acute osseous abnormality is evident. Electronically Signed: Og Lyon MD at 7:40 EST Tel , Service support ,
--- NOTE | 2018-09-16 18:20 | NURSING ---
late entry: Pt c/o pain in lt hand/forearm, hurts to touch, edematous. notified, new orders.
[2018-09-16 21:00] LABS: Absolute Lymphocyte Count 1.51 X10^3/ul (0.83-4.51); Absolute Neutrophil Count 7.2 X10^3/uL (2.0-7.7); Basophil# 0.03 X10^3/uL; Basophil% 0.3 % (0-1); Hematocrit 28.5 % (40-54); Hemoglobin 9.2 g/dl (13.0-16.5); Lymphocyte # 1.51 X10^3/ul (4.0); Lymphocyte % 15.2 % (19-41); Mean Corp Hgb Conc 32.3 g/gl (32-36); Mean Corpuscular Hgb 31.9 pg (27.0-32.0); Monocyte# 0.99 X10^3/uL; Neutrophil # 7.15 X10^3/uL (2.7-7.7); Neutrophil % 71.9 % (47-70); Platelet Count 227 K/mm3 (150-450); RBC Distribution Width CV 18.6 % (11.6-14.6); RBC Distribution Width SD 67.3 fl (35.1-43.9); Red Blood Count 2.88 M/mm3 (4.6-6.2); White Blood Count 9.9 K/mm3 (4.4-11.0)
[2018-09-16 21:04] LABS: Differential Indicated SCAN CRITERIA MET; POSITIVE COUNT NO; POSITIVE DIFFERENTIAL NO; POSITIVE MORPHOLOGY YES
[2018-09-16 21:07] LABS: Erythrocyte Sedimentation Rate 59 mm/hr (0-20); Platelet Estimate ADEQUATE (ADEQ)
[2018-09-16] MEDS: MethylPREDNISolone DosePak 4 MG BOX PO (21:08)
[2018-09-16] MEDS: MELATONIN 10 MG TABLET PO (21:09)
[2018-09-16 21:16] LABS: Anion Gap 8 (5-15); BUN 19 mg/dL (7-18); BUN/Creat Ratio 30.1 RATIO (10-20); Calcium,Total 8.5 mg/dL (8.5-10.1); Chloride 105 mmol/L (98-107); Creatinine, Serum 0.63 mg/dL (0.70-1.30); EST Glomerular Filtration Rate 129 mL/min (>60); Est Glom Filt Rate - Afr Amer 156 mL/min (>60); Estimated Creatinine Clearance 64.36 ml/min; Glucose 119 mg/dL (74-106); Potassium 4.3 mmol/L (3.5-5.1); Sodium Level 136 mmol/L (136-145); Uric Acid 4.2 mg/dL (3.5-7.2)
[2018-09-16] MEDS: Acetaminophen 500 MG Tablet 1000 MG PO (21:19)
[2018-09-16 21:26] LABS: Anisocytosis 1+; Macrocytosis RARE
[2018-09-17] MEDS: oxyCODONE 5 MG Tablet PO ×3 (03:43→18:36)
[2018-09-17] MEDS: Menthol/Lanolin/Calamine/Znox 113 GM Tube 1 APPLIC TOPICAL ×3 (05:58→21:04)
[2018-09-17] MEDS: Bisacodyl 5 MG Tablet 10 MG PO ×2 (05:58→18:23)
[2018-09-17] MEDS: Amiodarone 200 MG Tablet PO (05:58)
[2018-09-17] MEDS: Polyethylene Glycol 3350 17 GM PACKET PO (05:58)
[2018-09-17] MEDS: Senna/Docusate Sodium 1 Tablet 2 TABLET PO ×2 (05:58→18:24)
[2018-09-17] MEDS: APIXABAN 5 MG TABLET PO ×2 (05:58→18:24)
[2018-09-17] MEDS: Nystatin Powder 15gm Bottle 1 APPLIC TOPICAL ×3 (06:00→21:04)
[2018-09-17] MEDS: BACITRACIN 15 GM Tube 1 APPLIC TOPICAL ×2 (06:01→21:01)
[2018-09-17] MEDS: Pantoprazole Sodium 20 MG Tablet PO (06:06)
--- NOTE | 2018-09-17 07:00 | VDUE_ITS ---
Reason For Study: LT hand swelling Left Proximal Left jugular vein is spontaneous, widely patent, phasic, with no intraluminal echogenicity noted. Left subclavian vein is spontaneous, widely patent, phasic, with no intraluminal echogenicity noted. Left Arm Left axillary vein is spontaneous, patent, phasic, competent, compressible and demonstrates augmentation. Left brachial vein is compressible. Left cephalic vein is compressible. Left basilic vein is compressible. Left Lower Arm Left radial vein is compressible. Left ulnar vein is compressible. Interpretation Summary Deep veins of the left upper extremity are patent and compressible segmentally. There is no evidence of deep vein thrombosis. The superficial veins of the left upper extremity, the basilic and cephalic veins, are patent and compressible. There is no evidence of left upper extremity superficial thrombophlebitis involving the veins imaged. Ordering Physician: Hank Henriquez Referring Physician: Hank Henriquez Chi Performed By: Samantha Locke RVT ?
[2018-09-17] MEDS: Cefdinir 300 MG Capsule PO ×2 (07:34→18:24)
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
[2018-09-17] MEDS: Multivitamins,Therapeutic Tablet 1 TABLET PO (08:42)
[2018-09-17] MEDS: Iron Polysaccharide Complex 150 MG CAPSULE PO (08:42)
[2018-09-17] MEDS: MethylPREDNISolone DosePak 4 MG BOX PO ×4 (08:42→20:50)
--- NOTE | 2018-09-17 10:28 | NURSING ---
Dr Henriquez reviewed xrays of LT FA & chest. new order for mucomyst aerosals and started on medrol dose marbin. Pt instructed that he needs to do deep breathing exercises frequently.
--- NOTE | 2018-09-17 12:06 | CASEMGMT ---
Plan of care meeting held. Resident present as well as resident family. No discharge date set. Resident to continue with further care and treatment on the Transitional Care Unit. Resident has insurance update due on 09/22/18 and aware that continued stay approval is not guaranteed. This social media specialist broaching topic of discharge plan in the event that continued stay is not approved by insurance and resident is not ready to return to home. Resident and resident family voicing that plan would be for resident to discharge to a group home, probably in [facility] as this is where the family lives. Resident/resident family to continue to talk about what group home in the event that this is needed. Support given. Will continue to follow. Leana CH, SUKHWINDER
[2018-09-17 15:30] VITALS: BP 162/72; PULSE 72; RESP 18; TEMP 36.8; O2SAT 95
--- NOTE | 2018-09-17 16:44 | NURSING ---
Dr Henriquez notified of xray results, new order to consult Dr Capellan
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
[2018-09-17 20:05] VITALS: PULSE 74; RESP 18; O2SAT 94
[2018-09-17] MEDS: MELATONIN 10 MG TABLET PO (20:50)
[2018-09-17] MEDS: Acetaminophen 500 MG Tablet 1000 MG PO (20:59)
[2018-09-18] MEDS: Polyethylene Glycol 3350 17 GM PACKET PO (05:49)
[2018-09-18] MEDS: Pantoprazole Sodium 20 MG Tablet PO (05:53)
[2018-09-18] MEDS: oxyCODONE 5 MG Tablet PO ×3 (05:53→21:23)
[2018-09-18] MEDS: Amiodarone 200 MG Tablet PO (05:53)
[2018-09-18] MEDS: Bisacodyl 5 MG Tablet 10 MG PO ×2 (05:53→18:11)
[2018-09-18] MEDS: Cefdinir 300 MG Capsule PO ×2 (05:53→18:10)
[2018-09-18] MEDS: APIXABAN 5 MG TABLET PO ×2 (05:53→18:11)
[2018-09-18] MEDS: Senna/Docusate Sodium 1 Tablet 2 TABLET PO ×2 (05:53→18:10)
[2018-09-18] MEDS: Nystatin Powder 15gm Bottle 1 APPLIC TOPICAL ×3 (05:59→21:28)
[2018-09-18] MEDS: BACITRACIN 15 GM Tube 1 APPLIC TOPICAL ×2 (05:59→18:11)
[2018-09-18] MEDS: Menthol/Lanolin/Calamine/Znox 113 GM Tube 1 APPLIC TOPICAL ×3 (06:00→21:28)
[2018-09-18 06:07] LABS: Absolute Lymphocyte Count 0.86 X10^3/ul (0.83-4.51); Absolute Neutrophil Count 5.2 X10^3/uL (2.0-7.7); Basophil# 0.03 X10^3/uL; Basophil% 0.4 % (0-1); Eosinophil# 0.02 X10^3/uL; Eosinophils% 0.3 % (0-5); Hematocrit 28.4 % (40-54); Lymphocyte # 0.86 X10^3/ul (4.0); Lymphocyte % 12.5 % (19-41); Mean Corp Hgb Conc 31.7 g/gl (32-36); Mean Corpuscular Hgb 31.9 pg (27.0-32.0); Mean Corpuscular Volume 100.7 fL (80-94); Mean Platelet Vol. 9.5 fl (6.2-12.0); Monocyte# 0.73 X10^3/uL; Monocyte% 10.6 % (0-10); Neutrophil % 75.5 % (47-70); Platelet Count 297 K/mm3 (150-450); RBC Distribution Width CV 17.4 % (11.6-14.6); RBC Distribution Width SD 62.2 fl (35.1-43.9); Red Blood Count 2.82 M/mm3 (4.6-6.2); White Blood Count 6.9 K/mm3 (4.4-11.0)
[2018-09-18 06:08] LABS: POSITIVE COUNT NO; POSITIVE DIFFERENTIAL NO; POSITIVE MORPHOLOGY NO
[2018-09-18 06:22] LABS: Anion Gap 10 (5-15); BUN 22 mg/dL (7-18); Chloride 104 mmol/L (98-107); Creatinine, Serum 0.67 mg/dL (0.70-1.30); EST Glomerular Filtration Rate 121 mL/min (>60); Est Glom Filt Rate - Afr Amer 147 mL/min (>60); Estimated Creatinine Clearance 64.36 ml/min; Glucose 115 mg/dL (74-106); Potassium 4.6 mmol/L (3.5-5.1); Sodium Level 137 mmol/L (136-145)
--- NOTE | 2018-09-18 07:27 | NURSING ---
Addendum entered by Sissy Cordova 09/18/18 07:31: Per Dr. Capellan pt to get a velcro splint for Lt hand. Original Note: Dr. Capellan here to see pt.
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
[2018-09-18] MEDS: MethylPREDNISolone DosePak 4 MG BOX PO ×4 (08:29→21:21)
[2018-09-18] MEDS: Iron Polysaccharide Complex 150 MG CAPSULE PO (08:31)
[2018-09-18] MEDS: Multivitamins,Therapeutic Tablet 1 TABLET PO (08:32)
--- NOTE | 2018-09-18 09:55 | NURSING ---
Patient's urine culture positive for ESBL, Dr. Henriquez notified. Patient put on contact precautions per policy.
[2018-09-18 10:00] VITALS: PULSE 82; RESP 18
--- NOTE | 2018-09-18 12:26 | NURSING ---
Addendum entered by Esther Hollingsworth 09/19/18 11:33: New splint obtained from ED d/t wrong splint sent. pt now has correct splint on LT Hand. Original Note: Dr. Ham in to see patient today. NO to wear splint to left hand.
[2018-09-18] MEDS: Tuberculin,Purif.prot.deriv. 50 TU/ML Vial 5 ML ID (13:25)
[2018-09-18 15:44] VITALS: BP 147/70; PULSE 70; RESP 20; TEMP 36.5; O2SAT 96
[2018-09-18] MEDS: Acetaminophen 500 MG Tablet 1000 MG PO (18:07)
[2018-09-18] MEDS: MELATONIN 10 MG TABLET PO (21:21)
[2018-09-19] MEDS: Cefdinir 300 MG Capsule PO (04:51)
[2018-09-19] MEDS: Senna/Docusate Sodium 1 Tablet 2 TABLET PO ×2 (04:51→17:17)
[2018-09-19] MEDS: Polyethylene Glycol 3350 17 GM PACKET PO (04:51)
[2018-09-19] MEDS: APIXABAN 5 MG TABLET PO ×2 (04:51→17:17)
[2018-09-19] MEDS: Bisacodyl 5 MG Tablet 10 MG PO ×2 (04:51→17:18)
[2018-09-19] MEDS: Amiodarone 200 MG Tablet PO (04:51)
[2018-09-19] MEDS: oxyCODONE 5 MG Tablet PO ×2 (04:52→21:58)
[2018-09-19] MEDS: BACITRACIN 15 GM Tube 1 APPLIC TOPICAL ×2 (05:00→21:42)
[2018-09-19] MEDS: Menthol/Lanolin/Calamine/Znox 113 GM Tube 1 APPLIC TOPICAL ×3 (05:02→21:43)
[2018-09-19] MEDS: Nystatin Powder 15gm Bottle 1 APPLIC TOPICAL ×3 (05:02→21:44)
[2018-09-19] MEDS: Pantoprazole Sodium 20 MG Tablet PO (05:02)
[2018-09-19] MEDS: Multivitamins,Therapeutic Tablet 1 TABLET PO (08:21)
[2018-09-19] MEDS: Iron Polysaccharide Complex 150 MG CAPSULE PO (08:21)
[2018-09-19] MEDS: MethylPREDNISolone DosePak 4 MG BOX PO ×3 (08:21→21:40)
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
[2018-09-19 10:00] VITALS: PULSE 88; RESP 18
--- NOTE | 2018-09-19 11:04 | NURSING ---
Addendum entered by Esther Hollingsworth 09/19/18 14:42: orders faxed for WT bearing status, therapy updated. Dr Henriquez aware. Original Note: Notified Dr Russell Westbrook's office regarding WT bearing status order since xrays were mailed to him to review for our therapy dept. Awaiting return call.
[2018-09-19] MEDS: Nitrofurantoin Macrocrystals 100 MG Capsule PO ×2 (12:59→17:18)
[2018-09-19 15:28] VITALS: BP 129/78; PULSE 65; RESP 16; TEMP 36.5; O2SAT 98
--- NOTE | 2018-09-19 15:28 | CASEMGMT ---
Advanced Directives Spoke with resident spouse. Resident spouse reporting that resident has a health care power of second vp hr assessment along with a living will. Resident spouse plans to bring documents in to be placed on resident chart. This social science instructor thanked resident spouse. Leana CH, SUKHWINDER
--- NOTE | 2018-09-19 15:34 | PCA ---
Appointment with on September 30 was cancelled. (appointment was for a follow up from dvt in left leg) The nurse is going to talk with Dr. Fatima and if he has any issues or questions they will call. DERICK wolfe
--- NOTE | 2018-09-19 16:08 | PCM.HP.ID ---
Reason for Consult: esbl infection Consulted by: Dr. Henriquez History of Present Illness: The patient is a 83 year old M admitted to TCU, developed several days of dysuria. No prior h/o uti. Occasional need to strain to urinate as a chronic issue, not changed recently. No fever, no abd pain. Started on cefdinir, now ucx from 09/16 with ESBL. Sx not improved with cefdinir. Full ROS performed and neg except as noted above. - Medical History Past Medical History (Chronic Problems): Chronic Problems Hypertension (Chronic) Osteoarthritis (Chronic) GERD (gastroesophageal reflux disease) (Chronic) Arthritis of right foot (Chronic) Pes planus of right foot (Chronic) Difficulty walking (Chronic) Allergies/Adverse Reactions: Allergies apple Allergy (Verified 09/01/18 15:30) Rash Penicillins [PCN] Allergy (Verified 09/01/18 15:30) Rash Home Medications: Ambulatory Orders Medication Instructions Recorded Amiodarone HCl 200 mg PO DAILY 09/01/18 Bisacodyl [Dulcolax] 10 mg PO BID tablet 09/03/18 Menthol/Lanolin/Calamine/Znox 1 applic TOPICAL TID tube 09/03/18 [Calmoseptine Ointment] Nystatin Powder [Mycostatin Powder] 1 applic TOPICAL TID bottle 09/03/18 Apixaban [Eliquis] 5 mg PO BID 09/10/18 Apixaban [Eliquis] 10 mg PO BID 09/10/18 Esomeprazole Mag Trihydrate 20 mg PO DAILY 09/10/18 [Nexium] Fish Oil 1 tab PO DAILY 09/10/18 Glucosamine-Chondroitin Cap 500 mg PO BID 09/10/18 Lidocaine [Lidoderm Patch] 5 % TRANSDERM. DAILY 09/10/18 Lutein PO 09/10/18 Multivitamin,Therapeutic [Thera] 1 tab PO DAILY 09/10/18 Vitamin B Complex 09/10/18 Vitamin D3 09/10/18 Vital Signs Temp Pulse Resp BP Pulse Ox 97.7 F L 65 16 129/78 H 98 09/19/18 15:28 09/19/18 15:28 09/19/18 15:28 09/19/18 15:28 09/19/18 15:28 Oxygen Delivery Method Room Air Weight: 102.5 kg Body Mass Index (BMI) 29.8 Microbiology Past 72 Hours 09/16/18 10:15 Urine Culture - Final Urine, Clean Catch Escherichia coli - Other Studies Radiology: [] reviewed Other Studies: [] Route of nutrition/ use of supplements: [] Nutritional Intake: [] IV Site: [] Powell Catheter: [] - Physical Exam General: Alert, Oriented x3, Cooperative, No apparent distress HEENT: Atraumatic, PERRLA, EOMI Neck: Supple, No Nodes Lungs: Clear to auscultation, Normal air movement Cardiovascular: Regular rate, No murmurs Abdomen: Soft, Non Tender, Non-Distended Extremities: No edema Skin: No rashes Musculoskeletal: No Tenderness to Palpation of Joints or Extremities Neurological: Cranial nerves II-XII grossly intact - Assessment/Plan Antibiotics: [] Assessment/Plan: [] Active and Suspected Problems Atrial fibrillation (Acute) DVT (deep venous thrombosis) (Acute) Small bowel obstruction (Acute) Pneumocytosis (Acute) Metacarpal bone fracture (Acute) Fracture, metacarpal shaft (Acute) CMC arthritis, thumb, 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 No fever, no abd pain, normal wbc. Will follow, thank you.
[2018-09-19] MEDS: MELATONIN 10 MG TABLET PO (21:39)
[2018-09-20] MEDS: Nystatin Powder 15gm Bottle 1 APPLIC TOPICAL ×3 (05:45→21:58)
[2018-09-20] MEDS: BACITRACIN 15 GM Tube 1 APPLIC TOPICAL ×2 (05:46→21:53)
[2018-09-20] MEDS: Polyethylene Glycol 3350 17 GM PACKET PO (05:46)
[2018-09-20] MEDS: Amiodarone 200 MG Tablet PO (05:47)
[2018-09-20] MEDS: Nitrofurantoin Macrocrystals 100 MG Capsule PO ×2 (05:47→16:59)
[2018-09-20] MEDS: Menthol/Lanolin/Calamine/Znox 113 GM Tube 1 APPLIC TOPICAL ×3 (05:47→21:57)
[2018-09-20] MEDS: Senna/Docusate Sodium 1 Tablet 2 TABLET PO ×2 (05:47→16:59)
[2018-09-20] MEDS: Bisacodyl 5 MG Tablet 10 MG PO ×2 (05:48→16:59)
[2018-09-20] MEDS: APIXABAN 5 MG TABLET PO ×2 (05:49→17:00)
[2018-09-20] MEDS: oxyCODONE 5 MG Tablet PO ×2 (05:55→21:47)
[2018-09-20] MEDS: Pantoprazole Sodium 20 MG Tablet PO (05:55)
--- NOTE | 2018-09-20 07:10 | NURSING ---
All care provide in pt room remains in precautionl
[2018-09-20 07:28] VITALS: RESP 18; O2SAT 93
[2018-09-20] MEDS: MethylPREDNISolone DosePak 4 MG BOX PO ×2 (08:03→21:49)
[2018-09-20] MEDS: Iron Polysaccharide Complex 150 MG CAPSULE PO (08:04)
[2018-09-20] MEDS: Multivitamins,Therapeutic Tablet 1 TABLET PO (08:04)
[2018-09-20 15:29] VITALS: BP 141/79; PULSE 70; RESP 16; TEMP 36.9; O2SAT 96
[2018-09-20] MEDS: MELATONIN 10 MG TABLET PO (21:49)
[2018-09-21] MEDS: APIXABAN 5 MG TABLET PO ×2 (06:19→17:18)
[2018-09-21] MEDS: Bisacodyl 5 MG Tablet 10 MG PO (06:19)
[2018-09-21] MEDS: oxyCODONE 5 MG Tablet PO ×3 (06:19→22:14)
[2018-09-21] MEDS: Senna/Docusate Sodium 1 Tablet 2 TABLET PO (06:20)
[2018-09-21] MEDS: Nitrofurantoin Macrocrystals 100 MG Capsule PO ×2 (06:20→17:18)
[2018-09-21] MEDS: Amiodarone 200 MG Tablet PO (06:20)
[2018-09-21] MEDS: Pantoprazole Sodium 20 MG Tablet PO (06:21)
[2018-09-21] MEDS: Menthol/Lanolin/Calamine/Znox 113 GM Tube 1 APPLIC TOPICAL ×3 (06:23→20:39)
[2018-09-21] MEDS: Nystatin Powder 15gm Bottle 1 APPLIC TOPICAL ×3 (06:24→20:39)
[2018-09-21] MEDS: Polyethylene Glycol 3350 17 GM PACKET PO (06:24)
[2018-09-21] MEDS: BACITRACIN 15 GM Tube 1 APPLIC TOPICAL ×2 (06:25→20:37)
[2018-09-21] MEDS: Iron Polysaccharide Complex 150 MG CAPSULE PO (08:17)
[2018-09-21] MEDS: Multivitamins,Therapeutic Tablet 1 TABLET PO (08:17)
[2018-09-21] MEDS: MethylPREDNISolone DosePak 4 MG BOX PO (08:17)
[2018-09-21 11:00] VITALS: PULSE 63; RESP 18; O2SAT 94
[2018-09-21] MEDS: Acetaminophen 500 MG Tablet 1000 MG PO (12:27)
[2018-09-21 15:56] VITALS: BP 136/74; PULSE 72; RESP 16; TEMP 36.7; O2SAT 97
[2018-09-21] MEDS: MELATONIN 10 MG TABLET PO (20:36)
[2018-09-22] MEDS: Amiodarone 200 MG Tablet PO (05:18)
[2018-09-22] MEDS: BACITRACIN 15 GM Tube 1 APPLIC TOPICAL (05:18)
[2018-09-22] MEDS: Nitrofurantoin Macrocrystals 100 MG Capsule PO ×2 (05:18→17:08)
[2018-09-22] MEDS: APIXABAN 5 MG TABLET PO ×2 (05:19→17:08)
[2018-09-22] MEDS: Menthol/Lanolin/Calamine/Znox 113 GM Tube 1 APPLIC TOPICAL ×3 (05:19→20:51)
[2018-09-22] MEDS: Nystatin Powder 15gm Bottle 1 APPLIC TOPICAL ×3 (05:19→20:51)
[2018-09-22] MEDS: Senna/Docusate Sodium 1 Tablet PO ×2 (05:19→17:08)
[2018-09-22] MEDS: Polyethylene Glycol 3350 17 GM PACKET PO (05:19)
[2018-09-22] MEDS: Pantoprazole Sodium 20 MG Tablet PO (05:24)
[2018-09-22] MEDS: oxyCODONE 5 MG Tablet PO ×3 (05:24→17:11)
[2018-09-22] MEDS: Multivitamins,Therapeutic Tablet 1 TABLET PO (08:15)
[2018-09-22] MEDS: Iron Polysaccharide Complex 150 MG CAPSULE PO (08:15)
[2018-09-22 10:00] VITALS: PULSE 68; RESP 18; O2SAT 95
--- NOTE | 2018-09-22 10:55 | CASEMGMT ---
Insurance Clinical information sent. Pending continued stay approval. Auth#[id number] Leana CH, SUKHWINDER
--- NOTE | 2018-09-22 11:27 | NURSING ---
Contacted [facility] regarding followup with Dr. Shah to talk about IVC filter removal. Was told he should be able to wait until after DC from TCU but will confirm with MD and call back. Faxed H&P, latest progress note and MAR to MD at [phone] Shah may review.
--- NOTE | 2018-09-22 12:06 | MDS.RN ---
Information for the mds was obtained from review of the clinical record, interview of resident, staff, and direct observation of resident's care.
--- NOTE | 2018-09-22 13:38 | NURSING ---
Pt does not need to f/u with Julio Guo at [facility], Dr. Russell Westbrook is the orthopedic surgeon who did his surgery.
[2018-09-22 15:34] VITALS: BP 134/76; PULSE 93; RESP 20; TEMP 36.1; O2SAT 94
--- NOTE | 2018-09-22 16:12 | CASEMGMT ---
Insurance Continued stay denied with last cover day being 09/25/18 and resident to discharge or financial responsibility to begin on 09/26/18. Auth#[id number] Leana CH, SUKHWINDER
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
[2018-09-22] MEDS: MELATONIN 10 MG TABLET PO (20:48)
--- NOTE | 2018-09-23 04:52 | NURSING ---
Pt requesting to have urinal removed. This nurse and CHEMISTRY RESEARCH ASSISTANT into room. Pt repositioned in bed per pt request. Pt being very short with staff and demanding. CHEMISTRY RESEARCH ASSISTANT asked pt if he would like a pillow and blanket. Pt starring at TV and ignoring staff. This nurse asking pt if he would like a pillow or blanket. Pt looked at this nurse and said I am reporting this place to Dr. Henriquez and I am requesting to talk to him today. This nurse asking pt if there was anything that could be addressed at this time. Pt stating I am talking to Dr. Henriquez today. This nurse explained to pt that he would be notified and that staff can not help pt fulfill his needs if he does not express his needs. Pt ignoring this nurse and CHEMISTRY RESEARCH ASSISTANT again. This nurse asked pt again if he would like a blanket. Pt yelling at staff that his legs were not right. They were adjusted numerous times but pt still not happy and began to ignore staff again when asking if he was comfortable. Pt yelling at this nurse again that he needed a blanket on. This nurse asked pt numerous times if blanket was ok. Pt continued to stare at TV and ignore staff. This nurse reiterated again that if pt needed anything staff was here to help. Pt remained looking at TV with call light in hand.
[2018-09-23] MEDS: Nitrofurantoin Macrocrystals 100 MG Capsule PO ×2 (05:04→17:16)
[2018-09-23] MEDS: Senna/Docusate Sodium 1 Tablet PO ×2 (05:04→17:16)
[2018-09-23] MEDS: APIXABAN 5 MG TABLET PO ×2 (05:04→17:16)
[2018-09-23] MEDS: Amiodarone 200 MG Tablet PO (05:04)
[2018-09-23] MEDS: Polyethylene Glycol 3350 17 GM PACKET PO (05:05)
[2018-09-23] MEDS: Pantoprazole Sodium 20 MG Tablet PO (05:07)
[2018-09-23] MEDS: Menthol/Lanolin/Calamine/Znox 113 GM Tube 1 APPLIC TOPICAL ×3 (05:09→21:29)
[2018-09-23] MEDS: Nystatin Powder 15gm Bottle 1 APPLIC TOPICAL ×3 (05:11→21:30)
--- NOTE | 2018-09-23 06:39 | PCA ---
at aprox. [phone] this morning res. rang asking for urinal, mathieu Meek, went into his room and gave him the urinal, a few minutes later res. rang light,I went into his room and res, said,I cant go in this dam thing like this, he said the pillow under his leg is in the way and that he needed straightened up. I said no problem I can help you with that. Resident visibly angry with staff. RN notified.
--- NOTE | 2018-09-23 08:40 | CASEMGMT ---
Social Work Collaborating with Dr. Henriquez. Dr. Henriquez wants to complete a per to per. This social science research assistant providing Dr. Henriquez with per to per information. Will continue to follow. SUKHWINDER Bull
[2018-09-23] MEDS: Multivitamins,Therapeutic Tablet 1 TABLET PO (09:04)
[2018-09-23] MEDS: Iron Polysaccharide Complex 150 MG CAPSULE PO (09:04)
[2018-09-23] MEDS: oxyCODONE 5 MG Tablet PO (09:08)
--- NOTE | 2018-09-23 10:15 | CASEMGMT ---
Social Work Resident spouse initiating appeal. Case I.D#[id number]. [facility] records [facility] at this time. Proposed discharge date: 09/23/18 pending appeal. Leana CH, SUKHWINDER
--- NOTE | 2018-09-23 10:52 | PCM.PN.ID ---
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 - Physical Exam General: Alert, Cooperative, No apparent distress Lungs: Clear to auscultation, Normal air movement Cardiovascular: Regular rate, Regular Rhythm Abdomen: Soft, Non Tender, Non-Distended Skin: No rashes Vital Signs Temp Pulse Resp BP Pulse Ox 97.0 F L 93 20 H 134/76 H 94 09/22/18 15:34 09/22/18 15:34 09/22/18 15:34 09/22/18 15:34 09/22/18 15:34 Oxygen Delivery Method Room Air Weight: 102.5 kg Body Mass Index (BMI) 29.8 Intake and Output for Last 24 Hours 09/21/18 09/22/18 09/23/18 23:59 23:59 23:59 Intake Total 480 / 480 360 / 360 Output Total 200 / 200 275 / 275 Balance 280 / 280 85 / 85 Medical Necessity - Tobacco Use Smoking Status: Never smoker Tobacco Use: Non-smoker Route of nutrition/ use of supplements: [] Nutritional Intake: [] IV Site: [] Powell Catheter: [] - Assessment/Plan Antibiotics: [] Assessment/Plan: [] Active and Suspected Problems Atrial fibrillation (Acute) DVT (deep venous thrombosis) (Acute) Small bowel obstruction (Acute) Pneumocytosis (Acute) Metacarpal bone fracture (Acute) Fracture, metacarpal shaft (Acute) CMC arthritis, thumb, 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 Plan on 7 day course, stop date 09/25/18. Will follow as needed, please call with any questions
--- NOTE | 2018-09-23 12:17 | NURSING ---
Spoke with TATE Lou at [facility], please call office with discharge date to set up appointment for IVC filter removal on outpatient basis. .
[2018-09-23 14:00] VITALS: PULSE 79; RESP 18; O2SAT 97
--- NOTE | 2018-09-23 14:50 | CASEMGMT ---
Insurance Resident won per to per. Next update with insurance is due on 09/29/18. Notified resident and resident spouse. Auth#[id number] Leana CH, SUKHWINDER
--- NOTE | 2018-09-23 15:32 | NURSING ---
FINE CRACKLES TO POST RIGHT LUNG. EDUCATED ON USING THE I.S EVERY HOUR. REPORTED TO DERICK VALLADARES
[2018-09-23 15:43] VITALS: BP 135/67; PULSE 74; RESP 20; TEMP 36.6; O2SAT 95
[2018-09-23] MEDS: MELATONIN 10 MG TABLET PO (21:31)
[2018-09-24] MEDS: Menthol/Lanolin/Calamine/Znox 113 GM Tube 1 APPLIC TOPICAL ×3 (05:09→20:25)
[2018-09-24] MEDS: Nystatin Powder 15gm Bottle 1 APPLIC TOPICAL ×3 (05:09→20:25)
[2018-09-24] MEDS: Amiodarone 200 MG Tablet PO (05:10)
[2018-09-24] MEDS: Pantoprazole Sodium 20 MG Tablet PO (05:10)
[2018-09-24] MEDS: Nitrofurantoin Macrocrystals 100 MG Capsule PO ×2 (05:10→17:22)
[2018-09-24] MEDS: APIXABAN 5 MG TABLET PO ×2 (05:10→17:22)
[2018-09-24] MEDS: Senna/Docusate Sodium 1 Tablet PO ×2 (05:10→17:22)
[2018-09-24] MEDS: Polyethylene Glycol 3350 17 GM PACKET PO (05:11)
--- NOTE | 2018-09-24 06:51 | NURSING ---
Addendum entered by Daisy Chakraborty 09/24/18 08:53: NO for Right hand/wrist xrays. Original Note: Pt complaint of increased pain to Rt hand. Non-pitting edema noted. Pt requesting for Dr. Henriquez to look at it. Will update.
[2018-09-24] MEDS: Multivitamins,Therapeutic Tablet 1 TABLET PO (08:10)
[2018-09-24] MEDS: Iron Polysaccharide Complex 150 MG CAPSULE PO (08:10)
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
[2018-09-24] MEDS: oxyCODONE 5 MG Tablet PO (12:35)
[2018-09-24 15:41] VITALS: BP 123/69; PULSE 76; RESP 16; TEMP 36.6; O2SAT 98
--- NOTE | 2018-09-24 17:04 | NURSING ---
Dr Henriquez updated on xray results, new order to sched tylenol
--- NOTE | 2018-09-24 17:20 | CASEMGMT ---
Brief interview for mental status (BIMS) and resident mood interview (PHQ-9) completed on this day. BIMS score 15/15. PHQ-9 score
[2018-09-24 20:00] VITALS: PULSE 70; RESP 16; O2SAT 96
[2018-09-24] MEDS: MELATONIN 10 MG TABLET PO (20:25)
[2018-09-24] MEDS: Acetaminophen 500 MG Tablet 1000 MG PO (20:30)
--- NOTE | 2018-09-25 01:50 | NURSING ---
Addendum entered by Gillian Farrell 09/25/18 03:16: Per report pt is able to use urinal. At 0310 pt requested urinal RN attempted to hand pt urinal, pt stated, Oh no! I can't do that. I haven't been able to use my hands! Pt removed from bed holden right before requesting urinal and used right hand to grasp and hold bed rail while being turn on left side. Pt refused to use urinal himself, RN assisted. Original Note: PATIENT REQUESTED URINAL. THIS NURSE ATTEMPTED TO ASSIST PATIENT AND HE TOLD THIS NURSE, I CAN DO IT MYSELF. THIS NURSE GAVE PATIENT THE URINAL AND HE WAS ABLE TO PLACE URINAL HIMSELF. AFTER PATIENT COMPLETED TASK WAS ABLE TO HAND THIS NURSE THE URINAL.
[2018-09-25] MEDS: Acetaminophen 500 MG Tablet 1000 MG PO ×3 (05:17→20:05)
[2018-09-25] MEDS: Menthol/Lanolin/Calamine/Znox 113 GM Tube 1 APPLIC TOPICAL ×3 (05:17→20:03)
[2018-09-25] MEDS: Amiodarone 200 MG Tablet PO (05:18)
[2018-09-25] MEDS: Senna/Docusate Sodium 1 Tablet PO ×2 (05:18→16:42)
[2018-09-25] MEDS: Nitrofurantoin Macrocrystals 100 MG Capsule PO ×2 (05:18→16:42)
[2018-09-25] MEDS: Pantoprazole Sodium 20 MG Tablet PO (05:19)
[2018-09-25] MEDS: APIXABAN 5 MG TABLET PO ×2 (05:19→16:42)
[2018-09-25] MEDS: Polyethylene Glycol 3350 17 GM PACKET PO (05:19)
[2018-09-25] MEDS: Nystatin Powder 15gm Bottle 1 APPLIC TOPICAL ×3 (05:20→20:04)
[2018-09-25 06:05] LABS: Absolute Lymphocyte Count 1.21 X10^3/ul (0.83-4.51); Absolute Neutrophil Count 4.6 X10^3/uL (2.0-7.7); Basophil# 0.03 X10^3/uL; Basophil% 0.4 % (0-1); Eosinophil# 0.25 X10^3/uL; Eosinophils% 3.4 % (0-5); Hematocrit 31.4 % (40-54); Lymphocyte # 1.21 X10^3/ul (4.0); Lymphocyte % 16.7 % (19-41); Mean Corp Hgb Conc 31.8 g/gl (32-36); Mean Corpuscular Hgb 32.4 pg (27.0-32.0); Mean Corpuscular Volume 101.6 fL (80-94); Mean Platelet Vol. 9.2 fl (6.2-12.0); Monocyte% 13.8 % (0-10); Neutrophil % 63.4 % (47-70); Platelet Count 350 K/mm3 (150-450); RBC Distribution Width CV 17.8 % (11.6-14.6); Red Blood Count 3.09 M/mm3 (4.6-6.2); White Blood Count 7.3 K/mm3 (4.4-11.0)
[2018-09-25 06:10] LABS: POSITIVE COUNT YES; POSITIVE DIFFERENTIAL NO; POSITIVE MORPHOLOGY YES
[2018-09-25 06:13] LABS: Anion Gap 9 (5-15); BUN 22 mg/dL (7-18); BUN/Creat Ratio 30.3 RATIO (10-20); Calcium,Total 8.8 mg/dL (8.5-10.1); Chloride 104 mmol/L (98-107); Creatinine, Serum 0.72 mg/dL (0.70-1.30); EST Glomerular Filtration Rate 110 mL/min (>60); Est Glom Filt Rate - Afr Amer 133 mL/min (>60); Estimated Creatinine Clearance 64.36 ml/min; Glucose 104 mg/dL (74-106); Potassium 4.3 mmol/L (3.5-5.1); Sodium Level 137 mmol/L (136-145)
[2018-09-25] MEDS: Iron Polysaccharide Complex 150 MG CAPSULE PO (07:55)
[2018-09-25] MEDS: Multivitamins,Therapeutic Tablet 1 TABLET PO (07:55)
[2018-09-25] MEDS: oxyCODONE 5 MG Tablet PO ×2 (10:06→16:42)
[2018-09-25 14:04] LABS: Pathologist Review Reviewed
[2018-09-25 15:44] VITALS: BP 132/69; PULSE 76; RESP 18; TEMP 36.7; O2SAT 69
--- NOTE | 2018-09-25 15:51 | CHAPLAIN ---
Type of Pastoral Visit ___ Initial Visit _x__ Follow-up Visit ___ On-call Visit ___ General Patient Visit ___ Spiritual Assessment ___ Family Conference ___ Bereavement ___ Rapid Response ___ Code Blue ___ Other (describe below) Pastoral Care Referral From _x__ Patient ___ Family ___ Nurse ___ Physician ___ Computational Biologist ___ Room Service Server ___ Other (describe below) Sacrament/Intervention _x__ Active listening ___ Anointing ___ Faith ___ Bereavement ___ Communion ___ Gissell exploration ___ ___ Life review _x__ Prayer ___ Reconciliation ___ Sacrament of Sick _x__ Supportive presence ___ Wedding ___ Other (describe below) Pastoral Comments
[2018-09-25] MEDS: MELATONIN 10 MG TABLET PO (20:05)
[2018-09-26] MEDS: Nystatin Powder 15gm Bottle 1 APPLIC TOPICAL ×3 (04:12→22:09)
[2018-09-26] MEDS: Amiodarone 200 MG Tablet PO (04:13)
[2018-09-26] MEDS: Pantoprazole Sodium 20 MG Tablet PO (04:13)
[2018-09-26] MEDS: APIXABAN 5 MG TABLET PO ×2 (04:14→17:20)
[2018-09-26] MEDS: Acetaminophen 500 MG Tablet 1000 MG PO ×3 (04:14→22:18)
[2018-09-26] MEDS: Menthol/Lanolin/Calamine/Znox 113 GM Tube 1 APPLIC TOPICAL ×3 (04:15→22:09)
[2018-09-26] MEDS: Multivitamins,Therapeutic Tablet 1 TABLET PO (08:21)
[2018-09-26] MEDS: Iron Polysaccharide Complex 150 MG CAPSULE PO (08:21)
[2018-09-26 15:32] VITALS: BP 138/71; PULSE 73; RESP 16; TEMP 36.2; O2SAT 98
[2018-09-26] MEDS: Senna/Docusate Sodium 1 Tablet PO (17:20)
[2018-09-26] MEDS: oxyCODONE 5 MG Tablet PO ×2 (17:24→22:06)
[2018-09-26] MEDS: MELATONIN 10 MG TABLET PO (22:07)
[2018-09-26 22:10] VITALS: PULSE 76; RESP 18; O2SAT 95
[2018-09-27] MEDS: Nystatin Powder 15gm Bottle 1 APPLIC TOPICAL ×3 (05:19→21:42)
[2018-09-27] MEDS: Menthol/Lanolin/Calamine/Znox 113 GM Tube 1 APPLIC TOPICAL ×3 (05:19→21:42)
[2018-09-27] MEDS: APIXABAN 5 MG TABLET PO ×2 (05:27→18:08)
[2018-09-27] MEDS: Polyethylene Glycol 3350 17 GM PACKET PO (05:27)
[2018-09-27] MEDS: Acetaminophen 500 MG Tablet 1000 MG PO ×3 (05:27→21:43)
[2018-09-27] MEDS: Pantoprazole Sodium 20 MG Tablet PO (05:27)
[2018-09-27] MEDS: Senna/Docusate Sodium 1 Tablet PO ×2 (05:27→18:08)
[2018-09-27] MEDS: Amiodarone 200 MG Tablet PO (05:28)
[2018-09-27] MEDS: Iron Polysaccharide Complex 150 MG CAPSULE PO (08:45)
[2018-09-27] MEDS: Multivitamins,Therapeutic Tablet 1 TABLET PO (08:45)
[2018-09-27] MEDS: oxyCODONE 5 MG Tablet PO (08:51)
[2018-09-27 10:00] VITALS: PULSE 75; O2SAT 94
[2018-09-27 15:54] VITALS: BP 151/67; PULSE 71; RESP 20; TEMP 36.9; O2SAT 98
[2018-09-27] MEDS: MELATONIN 10 MG TABLET PO (21:43)
[2018-09-28] MEDS: Senna/Docusate Sodium 1 Tablet PO ×2 (05:02→18:31)
[2018-09-28] MEDS: APIXABAN 5 MG TABLET PO ×2 (05:02→18:31)
[2018-09-28] MEDS: Menthol/Lanolin/Calamine/Znox 113 GM Tube 1 APPLIC TOPICAL ×3 (05:02→21:27)
[2018-09-28] MEDS: Amiodarone 200 MG Tablet PO (05:02)
[2018-09-28] MEDS: Polyethylene Glycol 3350 17 GM PACKET PO (05:02)
[2018-09-28] MEDS: Nystatin Powder 15gm Bottle 1 APPLIC TOPICAL ×3 (05:02→21:27)
[2018-09-28] MEDS: Acetaminophen 500 MG Tablet 1000 MG PO ×3 (05:03→21:28)
[2018-09-28] MEDS: Pantoprazole Sodium 20 MG Tablet PO (05:03)
[2018-09-28] MEDS: Multivitamins,Therapeutic Tablet 1 TABLET PO (08:00)
[2018-09-28] MEDS: Iron Polysaccharide Complex 150 MG CAPSULE PO (08:00)
[2018-09-28 10:00] VITALS: PULSE 75; O2SAT 96
[2018-09-28] MEDS: oxyCODONE 5 MG Tablet PO (14:39)
[2018-09-28 15:47] VITALS: BP 156/79; PULSE 75; RESP 18; TEMP 36.5; O2SAT 96
[2018-09-28] MEDS: MELATONIN 10 MG TABLET PO (21:28)
[2018-09-29 06:00] VITALS: BP 136/73; PULSE 74; RESP 16
[2018-09-29] MEDS: Pantoprazole Sodium 20 MG Tablet PO (06:03)
[2018-09-29] MEDS: Senna/Docusate Sodium 1 Tablet PO ×2 (06:03→17:03)
[2018-09-29] MEDS: Acetaminophen 500 MG Tablet 1000 MG PO ×3 (06:03→22:20)
[2018-09-29] MEDS: Nystatin Powder 15gm Bottle 1 APPLIC TOPICAL ×3 (06:04→22:17)
[2018-09-29] MEDS: Polyethylene Glycol 3350 17 GM PACKET PO (06:04)
[2018-09-29] MEDS: Amiodarone 200 MG Tablet PO (06:04)
[2018-09-29] MEDS: APIXABAN 5 MG TABLET PO ×2 (06:04→17:07)
[2018-09-29] MEDS: Menthol/Lanolin/Calamine/Znox 113 GM Tube 1 APPLIC TOPICAL ×3 (07:43→22:17)
[2018-09-29] MEDS: Multivitamins,Therapeutic Tablet 1 TABLET PO (07:45)
[2018-09-29] MEDS: oxyCODONE 5 MG Tablet PO (07:50)
[2018-09-29] MEDS: Iron Polysaccharide Complex 150 MG CAPSULE PO (08:04)
[2018-09-29 10:00] VITALS: PULSE 80; O2SAT 98
--- NOTE | 2018-09-29 10:12 | CASEMGMT ---
Insurance Clinical information sent. Pending continued stay approval. Auth#[id number] Leana CH, SUKHWINDER
--- NOTE | 2018-09-29 14:05 | CASEMGMT ---
Insurance Continued stay approved with next update due on 10/06/18. Auth#[id number] JING Pereira, SUKHWINDER
[2018-09-29 15:12] VITALS: BP 150/81; PULSE 77; RESP 18; TEMP 37; O2SAT 99
[2018-09-29] MEDS: MELATONIN 10 MG TABLET PO (22:19)
--- NOTE | 2018-09-30 05:16 | NURSING ---
PROPELLANT CHARGE ZONE ASSEMBLER stated to this nurse that resident stated that he was wet and needed to use his urinal still that he called 30 minutes ago. PROPELLANT CHARGE ZONE ASSEMBLER gave him his urinal and changed him @ 4:30 am. This patient has been using call light all night and has assisted with urinal when needed. Rn made aware
[2018-09-30] MEDS: Polyethylene Glycol 3350 17 GM PACKET PO (05:21)
[2018-09-30] MEDS: Amiodarone 200 MG Tablet PO (05:22)
[2018-09-30] MEDS: Pantoprazole Sodium 20 MG Tablet PO (05:22)
[2018-09-30] MEDS: APIXABAN 5 MG TABLET PO ×2 (05:22→17:23)
[2018-09-30] MEDS: Senna/Docusate Sodium 1 Tablet PO ×2 (05:22→17:23)
[2018-09-30] MEDS: Nystatin Powder 15gm Bottle 1 APPLIC TOPICAL ×3 (05:23→22:12)
[2018-09-30] MEDS: Menthol/Lanolin/Calamine/Znox 113 GM Tube 1 APPLIC TOPICAL ×3 (05:23→22:11)
[2018-09-30] MEDS: Acetaminophen 500 MG Tablet 1000 MG PO ×3 (05:28→22:23)
[2018-09-30] MEDS: Multivitamins,Therapeutic Tablet 1 TABLET PO (08:13)
[2018-09-30] MEDS: Iron Polysaccharide Complex 150 MG CAPSULE PO (08:13)
[2018-09-30] MEDS: oxyCODONE 5 MG Tablet PO (08:13)
--- NOTE | 2018-09-30 10:24 | MDS.RN ---
Information for the mds was obtained from review of the clinical record, interview of resident, staff, and direct observation of resident's care.
[2018-09-30 16:00] VITALS: BP 124/72; PULSE 75; RESP 18; TEMP 36.6; O2SAT 98
[2018-09-30] MEDS: MELATONIN 10 MG TABLET PO (22:13)
[2018-09-30 22:30] VITALS: PULSE 76; RESP 18; O2SAT 97
[2018-10-01] MEDS: Pantoprazole Sodium 20 MG Tablet PO (05:26)
[2018-10-01] MEDS: Amiodarone 200 MG Tablet PO (05:26)
[2018-10-01] MEDS: APIXABAN 5 MG TABLET PO ×2 (05:26→17:38)
[2018-10-01] MEDS: Senna/Docusate Sodium 1 Tablet PO ×2 (05:26→17:38)
[2018-10-01] MEDS: Polyethylene Glycol 3350 17 GM PACKET PO (05:26)
[2018-10-01] MEDS: Menthol/Lanolin/Calamine/Znox 113 GM Tube 1 APPLIC TOPICAL ×3 (05:26→21:38)
[2018-10-01] MEDS: Nystatin Powder 15gm Bottle 1 APPLIC TOPICAL ×3 (05:27→21:38)
[2018-10-01] MEDS: Acetaminophen 500 MG Tablet 1000 MG PO ×3 (05:30→21:45)
[2018-10-01] MEDS: Multivitamins,Therapeutic Tablet 1 TABLET PO (07:40)
[2018-10-01] MEDS: Iron Polysaccharide Complex 150 MG CAPSULE PO (07:40)
[2018-10-01] MEDS: oxyCODONE 5 MG Tablet PO ×3 (07:46→22:53)
[2018-10-01 09:30] VITALS: PULSE 79; RESP 18; O2SAT 97
--- NOTE | 2018-10-01 13:41 | NURSING ---
Addendum entered by Esther Hollingsworth 10/01/18 18:35: Dr Henriquez updated, new order for UA via ST cath Original Note: PT SMALL BLEEDING FROM PENIS AND SMALL CLOT AFTER URINATING. REPORTED TO DERICK MCGILL
[2018-10-01 15:43] VITALS: BP 122/66; PULSE 73; RESP 18; TEMP 36.8; O2SAT 96
[2018-10-01 21:00] VITALS: BP 98/50; PULSE 66; RESP 16; TEMP 36.6; O2SAT 96
[2018-10-01] MEDS: MELATONIN 10 MG TABLET PO (21:39)
--- NOTE | 2018-10-01 22:00 | NURSING ---
Straight cath completed per order. Slight discomfort noted at beginning of procedure. Tolerated procedure well. Same reported to DERICK Lr.
[2018-10-01 22:13] LABS: Mucous, Urine 0 SEEN /hpf (<or=2+); Squamous Epithelial Cells - UA 0 SEEN /hpf (0-5)
[2018-10-01 22:18] LABS: Color, Urine Yellow (Yellow); Glucose, Dipstick Normal (Normal); Ketone-Dipstick Negative (Negative); Leukocyte Esterase-Dipstick 500 /ul (Negative); Nitrite-Dipstick Positive (Negative); Occult Blood-Urine 150 /ul (Negative); Protein-Dipstick 15 mg/dl (Negative); Urine Bilirubin Dipstick Negative (Negative); Urine Clarity Sl. Cloudy (Clear); Urine Urobilinogen Normal (Normal)
[2018-10-01 22:30] LABS: Bacteria 2+ /hpf (None Seen); Red Blood Cells-Urine 10-25 SEEN /hpf (0-5); White Blood Cells 25-50 SEEN /hpf (0-5)
[2018-10-02] MEDS: Polyethylene Glycol 3350 17 GM PACKET PO (05:13)
[2018-10-02] MEDS: Pantoprazole Sodium 20 MG Tablet PO (05:13)
[2018-10-02] MEDS: APIXABAN 5 MG TABLET PO ×2 (05:13→17:39)
[2018-10-02] MEDS: Amiodarone 200 MG Tablet PO (05:13)
[2018-10-02] MEDS: Senna/Docusate Sodium 1 Tablet PO ×2 (05:13→17:38)
[2018-10-02] MEDS: Nystatin Powder 15gm Bottle 1 APPLIC TOPICAL ×3 (05:14→21:36)
[2018-10-02] MEDS: Menthol/Lanolin/Calamine/Znox 113 GM Tube 1 APPLIC TOPICAL ×3 (05:14→21:36)
[2018-10-02] MEDS: Acetaminophen 500 MG Tablet 1000 MG PO ×3 (05:31→21:46)
[2018-10-02 06:26] LABS: Anion Gap 9 (5-15); BUN 22 mg/dL (7-18); BUN/Creat Ratio 28.7 RATIO (10-20); Chloride 107 mmol/L (98-107); Creatinine, Serum 0.77 mg/dL (0.70-1.30); EST Glomerular Filtration Rate 103 mL/min (>60); Est Glom Filt Rate - Afr Amer 125 mL/min (>60); Estimated Creatinine Clearance 64.36 ml/min; Glucose 97 mg/dL (74-106); Potassium 4.3 mmol/L (3.5-5.1); Sodium Level 138 mmol/L (136-145)
[2018-10-02 07:08] LABS: Absolute Lymphocyte Count 1.54 X10^3/ul (0.83-4.51); Absolute Neutrophil Count 2.7 X10^3/uL (2.0-7.7); Basophil# 0.17 X10^3/uL; Eosinophil# 0.29 X10^3/uL; Eosinophils% 5.2 % (0-5); Hematocrit 34.8 % (40-54); Hemoglobin 10.8 g/dl (13.0-16.5); Lymphocyte # 1.54 X10^3/ul (4.0); Lymphocyte % 27.4 % (19-41); Mean Corpuscular Hgb 33.4 pg (27.0-32.0); Mean Corpuscular Volume 107.7 fL (80-94); Mean Platelet Vol. 9.4 fl (6.2-12.0); Monocyte# 0.84 X10^3/uL; Monocyte% 14.9 % (0-10); Neutrophil % 47.9 % (47-70); Platelet Count 302 K/mm3 (150-450); RBC Distribution Width CV 18.2 % (11.6-14.6); RBC Distribution Width SD 68.2 fl (35.1-43.9); Red Blood Count 3.23 M/mm3 (4.6-6.2); White Blood Count 5.6 K/mm3 (4.4-11.0)
[2018-10-02 07:11] LABS: Differential Indicated SCAN CRITERIA MET; POSITIVE COUNT NO; POSITIVE DIFFERENTIAL NO; POSITIVE MORPHOLOGY YES
[2018-10-02 07:18] LABS: Differential Comment SCAN; Platelet Estimate ADEQUATE (ADEQ)
[2018-10-02 07:19] LABS: Anisocytosis 1+; Macrocytosis 1+; Polychromasia 1+
[2018-10-02] MEDS: oxyCODONE 5 MG Tablet PO ×2 (07:24→22:48)
--- NOTE | 2018-10-02 08:42 | NURSING ---
Dr. Henriquez reviewed UA, NO to update Dr. Bonilla regarding UTI symptoms r/t ESBL history.
[2018-10-02] MEDS: Multivitamins,Therapeutic Tablet 1 TABLET PO (09:08)
[2018-10-02] MEDS: Iron Polysaccharide Complex 150 MG CAPSULE PO (09:09)
[2018-10-02 10:00] VITALS: PULSE 76; O2SAT 95
--- NOTE | 2018-10-02 10:12 | NURSING ---
Dr. Bonilla notified of urinary symptoms, in to see patient.
--- NOTE | 2018-10-02 10:33 | PN.ID_ITS ---
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 No fever, no abd pain. - Physical Exam General: Alert, Cooperative, No apparent distress Lungs: Clear to auscultation, Normal air movement Cardiovascular: Regular rate, Regular Rhythm Abdomen: Soft, Non Tender, Non-Distended Skin: No rashes Vital Signs Temp Pulse Resp BP Pulse Ox 98 F 66 16 98/50 L 96 10/01/18 21:00 10/01/18 21:00 10/01/18 21:00 10/01/18 21:00 10/01/18 21:00 Oxygen Delivery Method Room Air Weight: 96.729 kg Body Mass Index (BMI) 29.8 Intake and Output for Last 24 Hours 09/30/18 10/01/18 10/02/18 23:59 23:59 23:59 Intake Total 1060 / 1060 1590 / 1590 480 / 480 Output Total 425 / 425 625 / 625 250 / 250 Balance 635 / 635 965 / 965 230 / 230 Laboratory Tests Past 24 Hrs 10/01/18 10/02/18 10/02/18 22:00 05:10 05:10 WBC 5.6 RBC 3.23 L Hgb 10.8 L Hct 34.8 L MCV 107.7 H MCH 33.4 H MCHC 31.0 L RDW 18.2 H RDW Differential 68.2 H Plt Count 302 MPV 9.4 Immature Gran % (Auto) 1.600 H Neut % (Auto) 47.9 Lymph % (Auto) 27.4 Nolan % (Auto) 14.9 H Eos % (Auto) 5.2 H Baso % (Auto) 3.0 H Absolute Neuts (auto) 2.7 Absolute Lymphs (auto) 1.54 Total Counted Not Reportable Differential Comment SCAN Platelet Estimate ADEQUATE Polychromasia 1+ Anisocytosis 1+ Macrocytosis 1+ Sodium 138 Potassium 4.3 Chloride 107 Carbon Dioxide 22.0 Anion Gap 9 BUN 22 H Creatinine 0.77 Estim Creat Clear Calc 64.36 Est GFR (MDRD) Af Amer 125 Est GFR (MDRD) Non-Af 103 BUN/Creatinine Ratio 28.7 H Glucose 97 Calcium 9.0 Urine Color Yellow Urine Clarity Sl. Cloudy Urine pH 5.0 Ur Specific [place] 1.020 Urine Protein 15 H Urine Glucose (UA) Normal Urine Ketones Negative Urine Occult Blood 150 H Urine Nitrite Positive H Urine Bilirubin Negative Urine Urobilinogen Normal Ur Leukocyte Esterase 500 H Urine RBC 10-25 SEEN Urine WBC 25-50 SEEN Ur Squamous Epith Cells 0 SEEN Urine Bacteria 2+ Urine Mucus 0 SEEN Medical Necessity - Tobacco Use Smoking Status: Never smoker Tobacco Use: Non-smoker Route of nutrition/ use of supplements: [] Nutritional Intake: [] IV Site: [] Powell Catheter: [] - Assessment/Plan Antibiotics: [] Assessment/Plan: [] Active and Suspected Problems Atrial fibrillation (Acute) DVT (deep venous thrombosis) (Acute) Small bowel obstruction (Acute) Pneumocytosis (Acute) Metacarpal bone fracture (Acute) Fracture, metacarpal shaft (Acute) CMC arthritis, thumb, 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 Now with dysuria 09/30, but he reports sx resolved after he passed a clot in his urine. No dysuria currently. UA with mild pyuria, UCx pending. No need for abx at this time. Will follow
[2018-10-02 15:18] VITALS: BP 140/72; PULSE 86; RESP 18; TEMP 36.9; O2SAT 94
[2018-10-02] MEDS: MELATONIN 10 MG TABLET PO (21:36)
[2018-10-03] MEDS: Pantoprazole Sodium 20 MG Tablet PO (05:45)
[2018-10-03] MEDS: Acetaminophen 500 MG Tablet 1000 MG PO ×3 (05:45→22:15)
[2018-10-03] MEDS: Senna/Docusate Sodium 1 Tablet PO ×2 (05:46→17:40)
[2018-10-03] MEDS: APIXABAN 5 MG TABLET PO ×2 (05:46→17:40)
[2018-10-03] MEDS: Polyethylene Glycol 3350 17 GM PACKET PO (05:46)
[2018-10-03] MEDS: Menthol/Lanolin/Calamine/Znox 113 GM Tube 1 APPLIC TOPICAL ×3 (05:46→22:20)
[2018-10-03] MEDS: Amiodarone 200 MG Tablet PO (05:46)
[2018-10-03] MEDS: Nystatin Powder 15gm Bottle 1 APPLIC TOPICAL ×3 (05:47→22:16)
--- NOTE | 2018-10-03 07:03 | NURSING ---
During med pass this nurse handed patient his water glass and noted that his right hand ring finger was sl contracted and patient was unable to extend finger. Patient is able to lay hand flat but when moves hand the ring finger is contracted. When asked by this nurse when he noticed his finger contracted he said a few days ago. Will cont to monitor. Same reported to DERICK Ann and DERICK Mason.
[2018-10-03] MEDS: oxyCODONE 5 MG Tablet PO (08:01)
[2018-10-03] MEDS: Multivitamins,Therapeutic Tablet 1 TABLET PO (08:02)
[2018-10-03] MEDS: Iron Polysaccharide Complex 150 MG CAPSULE PO (08:02)
--- NOTE | 2018-10-03 14:40 | PCM.PN.ID ---
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) Right foot pain (Acute) Subjective: Feeling fine, no further dysuria, no fever - Physical Exam General: Alert, Cooperative, No apparent distress Lungs: Clear to auscultation, Normal air movement Cardiovascular: Regular rate, Regular Rhythm Abdomen: Soft, Non Tender, Non-Distended Skin: No rashes Vital Signs Temp Pulse Resp BP Pulse Ox 98.5 F 86 18 140/72 H 94 10/02/18 15:18 10/02/18 15:18 10/02/18 15:18 10/02/18 15:18 10/02/18 15:18 Oxygen Delivery Method Room Air Weight: 96.729 kg Body Mass Index (BMI) 29.8 Intake and Output for Last 24 Hours 10/01/18 10/02/18 10/03/18 23:59 23:59 23:59 Intake Total 1590 / 1590 1560 / 1560 940 / 940 Output Total 625 / 625 400 / 400 590 / 590 Balance 965 / 965 1160 / 1160 350 / 350 Microbiology Past 72 Hours 10/01/18 22:00 Urine Culture - Preliminary Urine, Catheterized Escherichia coli Medical Necessity - Tobacco Use Smoking Status: Never smoker Tobacco Use: Non-smoker Route of nutrition/ use of supplements: [] Nutritional Intake: [] IV Site: [] Powell Catheter: [] - Assessment/Plan Antibiotics: [] Assessment/Plan: [] Active and Suspected Problems Atrial fibrillation (Acute) DVT (deep venous thrombosis) (Acute) Small bowel obstruction (Acute) Pneumocytosis (Acute) Metacarpal bone fracture (Acute) Fracture, metacarpal shaft (Acute) CMC arthritis, thumb, 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 Repeat ucx with esbl again, but asymptomatic. No need for abx at this time. Will follow
--- NOTE | 2018-10-03 15:36 | NURSING ---
notify Dr. Romero of nails needing trimmed, she is already consulted on his case
[2018-10-03 15:58] VITALS: BP 128/72; PULSE 75; RESP 18; TEMP 36.9; O2SAT 97
[2018-10-03] MEDS: MELATONIN 10 MG TABLET PO (21:55)
[2018-10-03 22:22] VITALS: PULSE 80; RESP 18; O2SAT 97
[2018-10-04] MEDS: Polyethylene Glycol 3350 17 GM PACKET PO (05:38)
[2018-10-04] MEDS: Menthol/Lanolin/Calamine/Znox 113 GM Tube 1 APPLIC TOPICAL ×3 (05:39→21:29)
[2018-10-04] MEDS: APIXABAN 5 MG TABLET PO ×2 (05:39→17:03)
[2018-10-04] MEDS: Pantoprazole Sodium 20 MG Tablet PO (05:39)
[2018-10-04] MEDS: Senna/Docusate Sodium 1 Tablet PO ×2 (05:39→17:03)
[2018-10-04] MEDS: Nystatin Powder 15gm Bottle 1 APPLIC TOPICAL ×3 (05:39→21:30)
[2018-10-04] MEDS: Amiodarone 200 MG Tablet PO (05:39)
[2018-10-04] MEDS: Acetaminophen 500 MG Tablet 1000 MG PO ×3 (05:43→21:39)
[2018-10-04] MEDS: Iron Polysaccharide Complex 150 MG CAPSULE PO (08:14)
[2018-10-04] MEDS: Multivitamins,Therapeutic Tablet 1 TABLET PO (08:14)
[2018-10-04 15:14] VITALS: BP 120/65; PULSE 76; RESP 18; TEMP 36.9; O2SAT 98
[2018-10-04] MEDS: oxyCODONE 5 MG Tablet PO (17:09)
[2018-10-04 21:30] VITALS: PULSE 78; RESP 18; O2SAT 97
[2018-10-04] MEDS: MELATONIN 10 MG TABLET PO (21:30)
[2018-10-05] MEDS: Polyethylene Glycol 3350 17 GM PACKET PO (05:03)
[2018-10-05] MEDS: APIXABAN 5 MG TABLET PO ×2 (05:03→17:18)
[2018-10-05] MEDS: Senna/Docusate Sodium 1 Tablet PO ×2 (05:03→17:18)
[2018-10-05] MEDS: Amiodarone 200 MG Tablet PO (05:03)
[2018-10-05] MEDS: Pantoprazole Sodium 20 MG Tablet PO (05:03)
[2018-10-05] MEDS: Menthol/Lanolin/Calamine/Znox 113 GM Tube 1 APPLIC TOPICAL ×3 (05:03→19:53)
[2018-10-05] MEDS: Nystatin Powder 15gm Bottle 1 APPLIC TOPICAL ×3 (05:04→19:53)
[2018-10-05] MEDS: oxyCODONE 5 MG Tablet PO ×3 (05:07→19:51)
[2018-10-05] MEDS: Acetaminophen 500 MG Tablet 1000 MG PO ×3 (06:09→21:42)
[2018-10-05] MEDS: Iron Polysaccharide Complex 150 MG CAPSULE PO (08:25)
[2018-10-05] MEDS: Multivitamins,Therapeutic Tablet 1 TABLET PO (08:25)
[2018-10-05 10:00] VITALS: PULSE 86; RESP 18; O2SAT 96
[2018-10-05 15:30] VITALS: BP 127/68; PULSE 80; RESP 18; TEMP 36.9; O2SAT 98
[2018-10-05] MEDS: MELATONIN 10 MG TABLET PO (19:51)
[2018-10-06] MEDS: Polyethylene Glycol 3350 17 GM PACKET PO (05:19)
[2018-10-06] MEDS: Menthol/Lanolin/Calamine/Znox 113 GM Tube 1 APPLIC TOPICAL ×3 (05:19→22:25)
[2018-10-06] MEDS: Pantoprazole Sodium 20 MG Tablet PO (05:19)
[2018-10-06] MEDS: Senna/Docusate Sodium 1 Tablet PO ×2 (05:19→17:15)
[2018-10-06] MEDS: Amiodarone 200 MG Tablet PO (05:19)
[2018-10-06] MEDS: APIXABAN 5 MG TABLET PO ×2 (05:20→17:15)
[2018-10-06] MEDS: Nystatin Powder 15gm Bottle 1 APPLIC TOPICAL ×3 (05:20→22:25)
[2018-10-06] MEDS: Acetaminophen 500 MG Tablet 1000 MG PO ×3 (05:21→22:28)
[2018-10-06] MEDS: oxyCODONE 5 MG Tablet PO (08:03)
[2018-10-06] MEDS: Multivitamins,Therapeutic Tablet 1 TABLET PO (08:07)
[2018-10-06] MEDS: Iron Polysaccharide Complex 150 MG CAPSULE PO (08:07)
--- NOTE | 2018-10-06 08:49 | NURSING ---
Dr. Romero's office called an notified of pt's toenails needing trimmed
--- NOTE | 2018-10-06 10:53 | CASEMGMT ---
Insurance: Continued stay review clinicals faxed to Alison nurse reviewer, at [facility]. Auth #[id number].
[2018-10-06 11:00] VITALS: PULSE 77; RESP 18; O2SAT 95
--- NOTE | 2018-10-06 11:31 | NURSING ---
PT HAD A SMALL AMOUNT OF BLOOD AND SMALL CLOT AFTER URINATING. NO COMPLAINTS VOICED AT THIS TIME. REPORTED TO DERICK BELL
--- NOTE | 2018-10-06 14:58 | NURSING ---
This nurse talked with pt to hear complaints regarding care this AM. 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 pt verbalized complaints that he felt he was not being listened to, and it did cause some unneeded discomfort. pt denies any further injury to knee, rather, thats just the way the machine lets you down and this happens if you don't release the rope right as i'm sitting down. pt denies any continuing discomfort at this time.
[2018-10-06 15:19] VITALS: BP 131/73; PULSE 76; RESP 18; TEMP 36.7; O2SAT 96
[2018-10-06] MEDS: MELATONIN 10 MG TABLET PO (22:24)
--- NOTE | 2018-10-07 00:11 | NURSING ---
Pt called out inspector heating and refrigeration light to use urinal this nurse gave pt the urinal to use. Pt stated, to this nurse that is what you are here for I explained to the pt that I will help if he needed me to help, but he's able to use the urinal by himself. Pt stated, that the last time he checked that I was not a therapist person. So this nurse assisted pt with the urinal I went back to get the urinal from the pt and emptied the urinal as I was walking away from him, he stated to me after getting the urinal from him to get the hell out of his room. Made Marissa Rn aware of the situations.
[2018-10-07] MEDS: Polyethylene Glycol 3350 17 GM PACKET PO (06:36)
[2018-10-07] MEDS: Senna/Docusate Sodium 1 Tablet PO ×2 (06:41→17:12)
[2018-10-07] MEDS: Menthol/Lanolin/Calamine/Znox 113 GM Tube 1 APPLIC TOPICAL ×3 (06:41→21:14)
[2018-10-07] MEDS: APIXABAN 5 MG TABLET PO ×2 (06:41→17:12)
[2018-10-07] MEDS: Pantoprazole Sodium 20 MG Tablet PO (06:41)
[2018-10-07] MEDS: Amiodarone 200 MG Tablet PO (06:41)
[2018-10-07] MEDS: Acetaminophen 500 MG Tablet 1000 MG PO ×3 (06:41→21:20)
[2018-10-07] MEDS: Nystatin Powder 15gm Bottle 1 APPLIC TOPICAL ×3 (06:42→21:15)
[2018-10-07] MEDS: Multivitamins,Therapeutic Tablet 1 TABLET PO (08:07)
[2018-10-07] MEDS: Iron Polysaccharide Complex 150 MG CAPSULE PO (08:07)
--- NOTE | 2018-10-07 09:11 | CASEMGMT ---
Addendum entered by Kimi Hatfield 10/07/18 15:15: Insurance [employer] faxed to insurance. Phone call from [employer] as pt wishes to appeal. Requested appeal information faxed. Auth #[id number] PHAN Ybarra Original Note: Insurance Continued stay denied with last covered day 10/09/18 and d/c or financial responsibility on 10/10/18. Auth #[id number] PHAN Ybarra
[2018-10-07] MEDS: oxyCODONE 5 MG Tablet PO (15:04)
[2018-10-07 15:49] VITALS: BP 124/66; PULSE 72; RESP 18; TEMP 36.7; O2SAT 99
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
[2018-10-07] MEDS: MELATONIN 10 MG TABLET PO (21:15)
--- NOTE | 2018-10-08 02:12 | NURSING ---
Pt used call-light to call out to nurses' station reporting he had to urinate. RN into assist pt. Per report, if pillows are removed from under legs, staff are able to hand pt urinal and pt is able to hold urinal himself. Per dayshift [employer], pt had been able to use urinal himself during the entire dayshift. RN began to explain that the pillows under his legs would be removed in order for the pt to hold the urinal himself pt stated, Oh no, I can't do that! RN asked pt to elaborate on what he meant. Pt smiled and stated, I hurt my hand today, while lifting his right hand in the air moving, his fingers. RN asked pt how pt's hand was hurt and pt informed RN it was hurt during therapy when he stood up. RN addressed pt's ability to hold urinal with dayshift, pt became defensive and angrily stated, Well your not in a green blouse! Pt then informed RN he doesn't have to do things for himself because an RN is not a therapist. RN expressed to pt that all staff work collaboratively together to improve pt's well being. RN educated pt on the importance of performing tasks to pt's own ability to improve pt's strengths in efforts to transition pt back into his home. RN then attempted to assist pt with urinal, pt refused RN services and asked RN to leave room. Urinal set within pt's reach. Pt resting in bed with call light in reach. This nurse encouraged pt to call for assistance if needed. Will continue to monitor and asses.
[2018-10-08] MEDS: Acetaminophen 500 MG Tablet 1000 MG PO ×3 (07:01→21:37)
[2018-10-08] MEDS: Nystatin Powder 15gm Bottle 1 APPLIC TOPICAL ×3 (07:02→21:38)
[2018-10-08] MEDS: Pantoprazole Sodium 20 MG Tablet PO (07:02)
[2018-10-08] MEDS: Amiodarone 200 MG Tablet PO (07:02)
[2018-10-08] MEDS: APIXABAN 5 MG TABLET PO ×2 (07:02→17:16)
[2018-10-08] MEDS: Senna/Docusate Sodium 1 Tablet PO ×2 (07:02→17:16)
[2018-10-08] MEDS: Menthol/Lanolin/Calamine/Znox 113 GM Tube 1 APPLIC TOPICAL ×3 (07:03→21:38)
[2018-10-08] MEDS: Polyethylene Glycol 3350 17 GM PACKET PO (07:03)
--- NOTE | 2018-10-08 07:23 | CASEMGMT ---
Social Work SW met with pt and discussed d/c plan. Pt aware that pt cannot return home at this time and that continued therapy is required. Discussed options with including staying at [facility] private pay and going to an outside F private pay. SW discussed financial costs of both. Medicare [facility] provided to pt . Pt appealing insurance decision to deny continued stay and will talk with pt to make decision on d/c plan should denial be upheld. Support provided. SW will continue to follow. PHAN Ybarra
[2018-10-08] MEDS: Multivitamins,Therapeutic Tablet 1 TABLET PO (08:10)
[2018-10-08] MEDS: Iron Polysaccharide Complex 150 MG CAPSULE PO (08:10)
[2018-10-08 10:00] VITALS: PULSE 78; RESP 18; O2SAT 96
--- NOTE | 2018-10-08 11:25 | CASEMGMT ---
Brief interview for mental status (BIMS) and mood (PHQ-9) completed on this day. BIMS score 13/15. PHQ-9 score . Matt Blancas social work student
[2018-10-08] MEDS: oxyCODONE 5 MG Tablet PO (11:32)
--- NOTE | 2018-10-08 12:08 | CASEMGMT ---
Student SELVIN MDS documentation reviewed. PHAN Martinez
[2018-10-08 15:27] VITALS: BP 126/70; PULSE 76; RESP 16; TEMP 36.7; O2SAT 98
[2018-10-08] MEDS: MELATONIN 10 MG TABLET PO (21:39)
--- NOTE | 2018-10-09 03:30 | NURSING ---
Addendum entered by Esther Hollingsworth 10/09/18 08:54: Dr Henriquez ordered lasix daily and labs on 03/14 Original Note: Pt with 2+ Pitting edema noted to bilateral lower ext. Pt stating he has noticed them getting swollen since he has been getting up during the day. Bilateral heels elevated with SCD's on. Will update Dr. Henriquez.
[2018-10-09] MEDS: Pantoprazole Sodium 20 MG Tablet PO (05:46)
[2018-10-09] MEDS: Amiodarone 200 MG Tablet PO (05:46)
[2018-10-09] MEDS: Polyethylene Glycol 3350 17 GM PACKET PO (05:46)
[2018-10-09] MEDS: Acetaminophen 500 MG Tablet 1000 MG PO ×3 (05:46→21:06)
[2018-10-09] MEDS: Senna/Docusate Sodium 1 Tablet PO ×2 (05:46→17:12)
[2018-10-09] MEDS: APIXABAN 5 MG TABLET PO ×2 (05:47→17:12)
[2018-10-09] MEDS: Menthol/Lanolin/Calamine/Znox 113 GM Tube 1 APPLIC TOPICAL ×3 (05:47→21:05)
[2018-10-09] MEDS: Nystatin Powder 15gm Bottle 1 APPLIC TOPICAL ×3 (05:47→21:05)
[2018-10-09] MEDS: Multivitamins,Therapeutic Tablet 1 TABLET PO (08:08)
[2018-10-09] MEDS: Iron Polysaccharide Complex 150 MG CAPSULE PO (08:08)
--- NOTE | 2018-10-09 08:46 | CASEMGMT ---
Insurance VM received from [email or web address] and pt denial has been upheld. LCD 10/09/18. Auth # [id number] PHAN Ybarra
--- NOTE | 2018-10-09 08:47 | CASEMGMT ---
Social Work Phone call to pt Siomara and informed that appeal results returned and denial of continued stay upheld. SW inquired of d/c plan. Pt states she would like pt to stay in [facility] private pay but needs to confirm this with pt before final decision can be made. to be in today to talk to pt and will notify SW of d/c decision. PHAN Ybarra
[2018-10-09 10:00] VITALS: PULSE 84; RESP 18; O2SAT 96
[2018-10-09] MEDS: Furosemide 40 MG Tablet PO (10:42)
--- NOTE | 2018-10-09 13:26 | CASEMGMT ---
Social Work SW met with pt . states she has spoken with pt and they have decided to continue in [facility] TCU private pay. Team notified that pt will be continuing in TCU. PHAN Ybarra
[2018-10-09 15:27] VITALS: BP 111/70; PULSE 79; RESP 18; TEMP 37; O2SAT 95
[2018-10-09] MEDS: MELATONIN 10 MG TABLET PO (21:06)
[2018-10-10] MEDS: Nystatin Powder 15gm Bottle 1 APPLIC TOPICAL ×3 (05:18→20:33)
[2018-10-10] MEDS: Menthol/Lanolin/Calamine/Znox 113 GM Tube 1 APPLIC TOPICAL ×3 (05:18→20:40)
[2018-10-10] MEDS: Polyethylene Glycol 3350 17 GM PACKET PO (05:19)
[2018-10-10] MEDS: APIXABAN 5 MG TABLET PO ×2 (05:20→18:11)
[2018-10-10] MEDS: Pantoprazole Sodium 20 MG Tablet PO (05:20)
[2018-10-10] MEDS: Senna/Docusate Sodium 1 Tablet PO ×2 (05:20→18:11)
[2018-10-10] MEDS: Amiodarone 200 MG Tablet PO (05:20)
[2018-10-10] MEDS: Furosemide 40 MG Tablet PO (05:22)
[2018-10-10] MEDS: Acetaminophen 500 MG Tablet 1000 MG PO ×3 (05:23→20:36)
--- NOTE | 2018-10-10 06:41 | MDS.RN ---
Information for the mds was obtained from review of the clinical record, interview of resident, staff, and direct observation of resident's care.
[2018-10-10 07:24] VITALS: PULSE 76; RESP 20; O2SAT 98
--- NOTE | 2018-10-10 07:42 | CASEMGMT ---
Insurance Phone call to insurance informing that pt is aware LCD was 10/09 and that starting today 10/10 pt will be staying in this facility accepting financial liability. Auth # [id number] PHAN Ybarra
[2018-10-10] MEDS: Iron Polysaccharide Complex 150 MG CAPSULE PO (09:28)
[2018-10-10] MEDS: Multivitamins,Therapeutic Tablet 1 TABLET PO (09:28)
[2018-10-10] MEDS: oxyCODONE 5 MG Tablet PO ×2 (09:28→14:39)
[2018-10-10 15:31] VITALS: BP 116/65; PULSE 77; RESP 18; TEMP 36.6; O2SAT 97
[2018-10-10] MEDS: MELATONIN 10 MG TABLET PO (20:32)
[2018-10-11] MEDS: Menthol/Lanolin/Calamine/Znox 113 GM Tube 1 APPLIC TOPICAL ×3 (06:25→21:53)
[2018-10-11] MEDS: Amiodarone 200 MG Tablet PO (06:26)
[2018-10-11] MEDS: Senna/Docusate Sodium 1 Tablet PO ×2 (06:26→17:13)
[2018-10-11] MEDS: Pantoprazole Sodium 20 MG Tablet PO (06:26)
[2018-10-11] MEDS: Furosemide 40 MG Tablet PO (06:26)
[2018-10-11] MEDS: Polyethylene Glycol 3350 17 GM PACKET PO (06:26)
[2018-10-11] MEDS: Nystatin Powder 15gm Bottle 1 APPLIC TOPICAL ×3 (06:26→21:51)
[2018-10-11] MEDS: APIXABAN 5 MG TABLET PO ×2 (06:27→17:13)
[2018-10-11] MEDS: Acetaminophen 500 MG Tablet 1000 MG PO ×3 (06:39→21:51)
[2018-10-11] MEDS: Iron Polysaccharide Complex 150 MG CAPSULE PO (08:06)
[2018-10-11] MEDS: Multivitamins,Therapeutic Tablet 1 TABLET PO (08:06)
[2018-10-11 15:29] VITALS: BP 129/70; PULSE 80; RESP 20; TEMP 36.9; O2SAT 97
[2018-10-11] MEDS: MELATONIN 10 MG TABLET PO (21:52)
[2018-10-12] MEDS: Menthol/Lanolin/Calamine/Znox 113 GM Tube 1 APPLIC TOPICAL ×3 (05:46→19:48)
[2018-10-12] MEDS: Polyethylene Glycol 3350 17 GM PACKET PO (05:46)
[2018-10-12] MEDS: Nystatin Powder 15gm Bottle 1 APPLIC TOPICAL ×3 (05:47→19:48)
[2018-10-12] MEDS: Senna/Docusate Sodium 1 Tablet PO ×2 (05:47→16:58)
[2018-10-12] MEDS: Furosemide 40 MG Tablet PO (05:47)
[2018-10-12] MEDS: Pantoprazole Sodium 20 MG Tablet PO (05:47)
[2018-10-12] MEDS: APIXABAN 5 MG TABLET PO ×2 (05:47→17:00)
[2018-10-12] MEDS: Amiodarone 200 MG Tablet PO (05:47)
[2018-10-12] MEDS: Acetaminophen 500 MG Tablet 1000 MG PO ×3 (05:48→19:52)
[2018-10-12 07:15] LABS: Anion Gap 7 (5-15); BUN 21 mg/dL (7-18); BUN/Creat Ratio 26.2 RATIO (10-20); Calcium,Total 8.9 mg/dL (8.5-10.1); Chloride 108 mmol/L (98-107); EST Glomerular Filtration Rate 98 mL/min (>60); Est Glom Filt Rate - Afr Amer 119 mL/min (>60); Estimated Creatinine Clearance 80.45 ml/min; Glucose 97 mg/dL (74-106); Potassium 4.1 mmol/L (3.5-5.1); Sodium Level 140 mmol/L (136-145)
[2018-10-12] MEDS: Iron Polysaccharide Complex 150 MG CAPSULE PO (08:10)
[2018-10-12] MEDS: Multivitamins,Therapeutic Tablet 1 TABLET PO (08:10)
[2018-10-12 16:00] VITALS: BP 131/71; PULSE 73; RESP 20; TEMP 36.4; O2SAT 97
[2018-10-12 19:33] VITALS: PULSE 80; RESP 18; O2SAT 99
[2018-10-12] MEDS: MELATONIN 10 MG TABLET PO (19:54)
--- NOTE | 2018-10-13 04:03 | NURSING ---
Addendum entered by Esther Hollingsworth 10/13/18 09:20: Dr Henriquez updated, orders for xrays entered. Original Note: Addendum entered by Brittany Escamilla 10/13/18 04:18: This nurse in to see patient and confirmed that there is a lump to patient's right knee. Patient denying pain with the lump. Patient stated that it has been there for two weeks will update Dr. Henriquez on this. Original Note: This nurse noted a lump on the anterior of the right knee pt stated it has been there for awhile. Denies any discomfort or pain. Bashir Scruggs aware.
[2018-10-13] MEDS: Polyethylene Glycol 3350 17 GM PACKET PO (05:27)
[2018-10-13] MEDS: Nystatin Powder 15gm Bottle 1 APPLIC TOPICAL ×3 (05:27→21:53)
[2018-10-13] MEDS: Pantoprazole Sodium 20 MG Tablet PO (05:27)
[2018-10-13] MEDS: Menthol/Lanolin/Calamine/Znox 113 GM Tube 1 APPLIC TOPICAL ×4 (05:27→21:53)
[2018-10-13] MEDS: Acetaminophen 500 MG Tablet 1000 MG PO ×3 (05:28→21:52)
[2018-10-13] MEDS: Furosemide 40 MG Tablet PO (05:28)
[2018-10-13] MEDS: APIXABAN 5 MG TABLET PO ×2 (05:28→16:45)
[2018-10-13] MEDS: Amiodarone 200 MG Tablet PO (05:28)
[2018-10-13] MEDS: Senna/Docusate Sodium 1 Tablet PO ×2 (05:28→16:46)
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
[2018-10-13] MEDS: Iron Polysaccharide Complex 150 MG CAPSULE PO (08:11)
[2018-10-13] MEDS: Multivitamins,Therapeutic Tablet 1 TABLET PO (08:12)
[2018-10-13 10:00] VITALS: PULSE 78; RESP 18; O2SAT 99
[2018-10-13 15:06] VITALS: BP 134/94; PULSE 74; RESP 18; TEMP 36.6; O2SAT 98
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
[2018-10-13] MEDS: MELATONIN 10 MG TABLET PO (21:52)
[2018-10-14] MEDS: Furosemide 40 MG Tablet PO (04:51)
[2018-10-14] MEDS: APIXABAN 5 MG TABLET PO ×2 (04:51→17:00)
[2018-10-14] MEDS: Pantoprazole Sodium 20 MG Tablet PO (04:51)
[2018-10-14] MEDS: Acetaminophen 500 MG Tablet 1000 MG PO ×3 (04:51→22:27)
[2018-10-14] MEDS: Amiodarone 200 MG Tablet PO (04:51)
[2018-10-14] MEDS: Nystatin Powder 15gm Bottle 1 APPLIC TOPICAL ×3 (04:53→22:21)
[2018-10-14] MEDS: Multivitamins,Therapeutic Tablet 1 TABLET PO (08:29)
[2018-10-14] MEDS: Iron Polysaccharide Complex 150 MG CAPSULE PO (08:29)
--- NOTE | 2018-10-14 10:36 | NURSING ---
TRISTAN FROM THERAPY CAME TO THIS NURSE AND SAID WHEN SHE PUT PT SHOE ON THE TOE NAIL MUST HAVE CAUGHT ON THE SHOE AND MADE THE TOE NAIL BLEED. CLEANED RIGHT 4TH TOE. HARDIK ARREOLA AND BLAINE TERAN RN IN ROOM. BANDAID APPLIED.
[2018-10-14 11:00] VITALS: PULSE 86; RESP 18; O2SAT 97
[2018-10-14] MEDS: Menthol/Lanolin/Calamine/Znox 113 GM Tube 1 APPLIC TOPICAL ×2 (14:14→22:21)
[2018-10-14 15:56] VITALS: BP 110/66; PULSE 80; RESP 20; TEMP 36.5; O2SAT 96
[2018-10-14] MEDS: MELATONIN 10 MG TABLET PO (22:22)
[2018-10-15] MEDS: Nystatin Powder 15gm Bottle 1 APPLIC TOPICAL ×3 (05:03→21:35)
[2018-10-15] MEDS: Menthol/Lanolin/Calamine/Znox 113 GM Tube 1 APPLIC TOPICAL ×3 (05:04→21:35)
[2018-10-15] MEDS: Acetaminophen 500 MG Tablet 1000 MG PO ×3 (05:04→21:39)
[2018-10-15] MEDS: Amiodarone 200 MG Tablet PO (05:06)
[2018-10-15] MEDS: APIXABAN 5 MG TABLET PO ×2 (05:07→16:56)
[2018-10-15] MEDS: Pantoprazole Sodium 20 MG Tablet PO (05:07)
[2018-10-15] MEDS: Furosemide 40 MG Tablet PO (05:07)
[2018-10-15] MEDS: Multivitamins,Therapeutic Tablet 1 TABLET PO (08:43)
[2018-10-15] MEDS: Iron Polysaccharide Complex 150 MG CAPSULE PO (08:47)
[2018-10-15 09:46] VITALS: PULSE 86; RESP 18; O2SAT 97
[2018-10-15 15:07] VITALS: BP 124/73; PULSE 78; RESP 24; TEMP 36.8; O2SAT 90
[2018-10-15] MEDS: Senna/Docusate Sodium 1 Tablet PO (16:53)
[2018-10-15] MEDS: MELATONIN 10 MG TABLET PO (21:34)
[2018-10-16] MEDS: Acetaminophen 500 MG Tablet 1000 MG PO ×3 (05:16→21:56)
[2018-10-16] MEDS: Amiodarone 200 MG Tablet PO (05:18)
[2018-10-16] MEDS: Nystatin Powder 15gm Bottle 1 APPLIC TOPICAL ×3 (05:18→21:56)
[2018-10-16] MEDS: Pantoprazole Sodium 20 MG Tablet PO (05:18)
[2018-10-16] MEDS: APIXABAN 5 MG TABLET PO ×2 (05:18→17:10)
[2018-10-16] MEDS: Menthol/Lanolin/Calamine/Znox 113 GM Tube 1 APPLIC TOPICAL ×3 (05:19→21:57)
[2018-10-16 07:00] VITALS: PULSE 83; RESP 16; O2SAT 95
[2018-10-16] MEDS: oxyCODONE 5 MG Tablet PO (07:01)
--- NOTE | 2018-10-16 07:40 | NURSING ---
Addendum entered by Esther Hollingsworth 10/16/18 19:06: DR MENDOZA UPDATED, NEW ORDER FOR VIT D AND LABS IN AM. Original Note: Addendum entered by Esther Hollingsworth 10/16/18 13:19: returned from appt with orders, weightbearing as tolerated to all extremities. ROM is strengthening exercises throughout. Advance activities as comfort and strength allow. Brace not required the left wrist/hand. can be utilized as needed for comfort. Pt aware he is at risk for nonunion in multiple sites, demonstrating limited radiographic healing. highest risk sites are right humerus in his right distal femur, as well as right tibia. Original Note: pt off unit via wc with family at side for appt
[2018-10-16] MEDS: Iron Polysaccharide Complex 150 MG CAPSULE PO (13:48)
[2018-10-16] MEDS: Multivitamins,Therapeutic Tablet 1 TABLET PO (13:49)
[2018-10-16 15:51] VITALS: BP 117/63; PULSE 77; RESP 16; TEMP 36.8; O2SAT 97
[2018-10-16] MEDS: Senna/Docusate Sodium 1 Tablet PO (17:06)
[2018-10-16] MEDS: MELATONIN 10 MG TABLET PO (21:57)
[2018-10-17] MEDS: Polyethylene Glycol 3350 17 GM PACKET PO (05:11)
[2018-10-17] MEDS: APIXABAN 5 MG TABLET PO ×2 (05:11→17:40)
[2018-10-17] MEDS: Senna/Docusate Sodium 1 Tablet PO ×2 (05:12→17:40)
[2018-10-17] MEDS: Menthol/Lanolin/Calamine/Znox 113 GM Tube 1 APPLIC TOPICAL ×3 (05:12→21:47)
[2018-10-17] MEDS: Nystatin Powder 15gm Bottle 1 APPLIC TOPICAL ×3 (05:12→21:47)
[2018-10-17] MEDS: Furosemide 40 MG Tablet PO (05:12)
[2018-10-17] MEDS: Pantoprazole Sodium 20 MG Tablet PO (05:13)
[2018-10-17] MEDS: Amiodarone 200 MG Tablet PO (05:15)
[2018-10-17] MEDS: Acetaminophen 500 MG Tablet 1000 MG PO ×3 (05:17→21:51)
[2018-10-17 05:54] LABS: Albumin, Serum 3.4 g/dL (3.2-5.0); Prealbumin 34.5 mg/dL (20.0-40.0)
[2018-10-17 07:30] VITALS: PULSE 80; RESP 18; O2SAT 96
[2018-10-17] MEDS: Multivitamins,Therapeutic Tablet 1 TABLET PO (07:52)
[2018-10-17] MEDS: Iron Polysaccharide Complex 150 MG CAPSULE PO (07:52)
[2018-10-17 08:35] LABS: Vitamin D,25 Hydroxy 32.6 ng/mL (29.95-100.01)
[2018-10-17 16:00] VITALS: BP 122/75; PULSE 77; RESP 18; TEMP 36.4; O2SAT 97
[2018-10-17] MEDS: MELATONIN 10 MG TABLET PO (21:45)
[2018-10-18] MEDS: Polyethylene Glycol 3350 17 GM PACKET PO (05:58)
[2018-10-18] MEDS: Acetaminophen 500 MG Tablet 1000 MG PO ×3 (05:58→21:34)
[2018-10-18] MEDS: Pantoprazole Sodium 20 MG Tablet PO (05:59)
[2018-10-18] MEDS: Senna/Docusate Sodium 1 Tablet PO ×2 (05:59→16:45)
[2018-10-18] MEDS: APIXABAN 5 MG TABLET PO ×2 (05:59→16:45)
[2018-10-18] MEDS: Amiodarone 200 MG Tablet PO (05:59)
[2018-10-18] MEDS: Menthol/Lanolin/Calamine/Znox 113 GM Tube 1 APPLIC TOPICAL ×3 (06:02→21:34)
[2018-10-18] MEDS: Nystatin Powder 15gm Bottle 1 APPLIC TOPICAL ×3 (06:02→21:34)
[2018-10-18] MEDS: Multivitamins,Therapeutic Tablet 1 TABLET PO (08:12)
[2018-10-18] MEDS: Iron Polysaccharide Complex 150 MG CAPSULE PO (08:12)
[2018-10-18 15:24] VITALS: BP 111/59; PULSE 72; RESP 18; TEMP 36.8; O2SAT 96
[2018-10-18] MEDS: MELATONIN 10 MG TABLET PO (21:34)
[2018-10-18 22:00] VITALS: PULSE 84; RESP 16
[2018-10-19] MEDS: Menthol/Lanolin/Calamine/Znox 113 GM Tube 1 APPLIC TOPICAL ×3 (05:50→20:56)
[2018-10-19] MEDS: Nystatin Powder 15gm Bottle 1 APPLIC TOPICAL ×3 (05:51→20:57)
[2018-10-19] MEDS: Pantoprazole Sodium 20 MG Tablet PO (05:55)
[2018-10-19] MEDS: Polyethylene Glycol 3350 17 GM PACKET PO (05:55)
[2018-10-19] MEDS: Acetaminophen 500 MG Tablet 1000 MG PO ×3 (05:55→20:58)
[2018-10-19] MEDS: Amiodarone 200 MG Tablet PO (05:55)
[2018-10-19] MEDS: Senna/Docusate Sodium 1 Tablet PO ×2 (05:55→16:59)
[2018-10-19] MEDS: APIXABAN 5 MG TABLET PO ×2 (05:55→16:59)
[2018-10-19] MEDS: Iron Polysaccharide Complex 150 MG CAPSULE PO (08:33)
[2018-10-19] MEDS: Multivitamins,Therapeutic Tablet 1 TABLET PO (08:33)
[2018-10-19 10:00] VITALS: PULSE 74; RESP 16; O2SAT 95
[2018-10-19 15:15] VITALS: BP 110/65; PULSE 72; RESP 20; TEMP 36.4; O2SAT 98
[2018-10-19] MEDS: MELATONIN 10 MG TABLET PO (20:57)
[2018-10-20] MEDS: Senna/Docusate Sodium 1 Tablet PO ×2 (04:55→17:59)
[2018-10-20] MEDS: Acetaminophen 500 MG Tablet 1000 MG PO ×3 (04:56→21:35)
[2018-10-20] MEDS: Pantoprazole Sodium 20 MG Tablet PO (04:56)
[2018-10-20] MEDS: APIXABAN 5 MG TABLET PO ×2 (04:57→17:59)
[2018-10-20] MEDS: Nystatin Powder 15gm Bottle 1 APPLIC TOPICAL ×3 (04:57→21:35)
[2018-10-20] MEDS: Menthol/Lanolin/Calamine/Znox 113 GM Tube 1 APPLIC TOPICAL ×3 (04:57→21:37)
[2018-10-20] MEDS: Polyethylene Glycol 3350 17 GM PACKET PO (04:57)
[2018-10-20] MEDS: Amiodarone 200 MG Tablet PO (04:57)
[2018-10-20] MEDS: Multivitamins,Therapeutic Tablet 1 TABLET PO (08:06)
[2018-10-20] MEDS: Iron Polysaccharide Complex 150 MG CAPSULE PO (08:08)
[2018-10-20 13:00] VITALS: PULSE 79; RESP 18; O2SAT 98
[2018-10-20 16:00] VITALS: BP 123/63; PULSE 78; RESP 18; TEMP 36.6; O2SAT 95
[2018-10-20] MEDS: MELATONIN 10 MG TABLET PO (21:36)
[2018-10-21] MEDS: Senna/Docusate Sodium 1 Tablet PO ×2 (06:07→17:07)
[2018-10-21] MEDS: APIXABAN 5 MG TABLET PO ×2 (06:07→17:15)
[2018-10-21] MEDS: Nystatin Powder 15gm Bottle 1 APPLIC TOPICAL ×3 (06:07→20:27)
[2018-10-21] MEDS: Amiodarone 200 MG Tablet PO (06:07)
[2018-10-21] MEDS: Polyethylene Glycol 3350 17 GM PACKET PO (06:07)
[2018-10-21] MEDS: Pantoprazole Sodium 20 MG Tablet PO (06:07)
[2018-10-21] MEDS: Menthol/Lanolin/Calamine/Znox 113 GM Tube 1 APPLIC TOPICAL ×3 (06:11→20:27)
[2018-10-21] MEDS: Acetaminophen 500 MG Tablet 1000 MG PO ×3 (06:12→20:28)
[2018-10-21] MEDS: Multivitamins,Therapeutic Tablet 1 TABLET PO (08:02)
[2018-10-21] MEDS: Iron Polysaccharide Complex 150 MG CAPSULE PO (08:02)
[2018-10-21 16:00] VITALS: BP 148/72; PULSE 68; RESP 18; TEMP 36.7; O2SAT 96
[2018-10-21] MEDS: MELATONIN 10 MG TABLET PO (20:28)
[2018-10-21 20:30] VITALS: PULSE 80; RESP 16; O2SAT 96
[2018-10-22] MEDS: Menthol/Lanolin/Calamine/Znox 113 GM Tube 1 APPLIC TOPICAL ×3 (05:41→21:05)
[2018-10-22] MEDS: Pantoprazole Sodium 20 MG Tablet PO (05:41)
[2018-10-22] MEDS: Amiodarone 200 MG Tablet PO (05:41)
[2018-10-22] MEDS: APIXABAN 5 MG TABLET PO ×2 (05:41→16:50)
[2018-10-22] MEDS: Senna/Docusate Sodium 1 Tablet PO ×2 (05:41→16:50)
[2018-10-22] MEDS: Nystatin Powder 15gm Bottle 1 APPLIC TOPICAL ×3 (05:42→21:05)
[2018-10-22] MEDS: Polyethylene Glycol 3350 17 GM PACKET PO (05:42)
[2018-10-22] MEDS: Acetaminophen 500 MG Tablet 1000 MG PO ×3 (05:55→21:04)
[2018-10-22 07:15] VITALS: PULSE 72; RESP 17; O2SAT 95
[2018-10-22] MEDS: Multivitamins,Therapeutic Tablet 1 TABLET PO (08:03)
[2018-10-22] MEDS: Iron Polysaccharide Complex 150 MG CAPSULE PO (08:04)
--- NOTE | 2018-10-22 13:12 | CHAPLAIN ---
Type of Pastoral Visit ___ Initial Visit _x__ Follow-up Visit ___ On-call Visit ___ General Patient Visit ___ Spiritual Assessment ___ Family Conference ___ Bereavement ___ Rapid Response ___ Code Blue ___ Other (describe below) Pastoral Care Referral From _x__ Patient _x__ Family ___ Nurse ___ Physician ___ Police Liaison Officer ___ School Psychology Professor ___ Other (describe below) Sacrament/Intervention _x__ Active listening ___ Anointing ___ Faith ___ Bereavement ___ Communion _x__ Gissell exploration ___ _x__ Life review _x__ Prayer ___ Reconciliation ___ Sacrament of Sick _x__ Supportive presence ___ Wedding ___ Other (describe below) Pastoral Comments
[2018-10-22 15:38] VITALS: BP 135/68; PULSE 75; RESP 16; TEMP 36.6; O2SAT 97
[2018-10-22] MEDS: MELATONIN 10 MG TABLET PO (21:04)
[2018-10-23] MEDS: Nystatin Powder 15gm Bottle 1 APPLIC TOPICAL ×3 (05:27→20:43)
[2018-10-23] MEDS: Polyethylene Glycol 3350 17 GM PACKET PO (05:27)
[2018-10-23] MEDS: Menthol/Lanolin/Calamine/Znox 113 GM Tube 1 APPLIC TOPICAL ×3 (05:27→20:43)
[2018-10-23] MEDS: Senna/Docusate Sodium 1 Tablet PO ×2 (05:28→17:08)
[2018-10-23] MEDS: Pantoprazole Sodium 20 MG Tablet PO (05:28)
[2018-10-23] MEDS: Amiodarone 200 MG Tablet PO (05:28)
[2018-10-23] MEDS: APIXABAN 5 MG TABLET PO ×2 (05:29→17:08)
[2018-10-23] MEDS: Acetaminophen 500 MG Tablet 1000 MG PO ×3 (05:30→20:42)
[2018-10-23] MEDS: Multivitamins,Therapeutic Tablet 1 TABLET PO (08:04)
[2018-10-23] MEDS: Iron Polysaccharide Complex 150 MG CAPSULE PO (08:04)
[2018-10-23] MEDS: oxyCODONE 5 MG Tablet PO (08:06)
[2018-10-23 13:00] VITALS: PULSE 77; RESP 18; O2SAT 98
--- NOTE | 2018-10-23 14:31 | NURSING ---
OPEN SORE TO LEFT BUTTOCK,LOOKS LIKE FROM SHEARING. MEPILEX APPLIED. REPORTED TO DERICK BELL
[2018-10-23 15:40] VITALS: BP 112/56; PULSE 75; RESP 16; TEMP 36.4; O2SAT 96
[2018-10-23] MEDS: MELATONIN 10 MG TABLET PO (20:42)
[2018-10-24] MEDS: Menthol/Lanolin/Calamine/Znox 113 GM Tube 1 APPLIC TOPICAL ×3 (05:12→20:34)
[2018-10-24] MEDS: APIXABAN 5 MG TABLET PO ×2 (05:13→17:58)
[2018-10-24] MEDS: Amiodarone 200 MG Tablet PO (05:13)
[2018-10-24] MEDS: Nystatin Powder 15gm Bottle 1 APPLIC TOPICAL ×3 (05:13→20:34)
[2018-10-24] MEDS: Acetaminophen 500 MG Tablet 1000 MG PO ×3 (05:14→20:39)
[2018-10-24] MEDS: Pantoprazole Sodium 20 MG Tablet PO (05:14)
[2018-10-24] MEDS: Senna/Docusate Sodium 1 Tablet PO ×2 (05:14→17:58)
[2018-10-24] MEDS: Multivitamins,Therapeutic Tablet 1 TABLET PO (09:41)
[2018-10-24] MEDS: Iron Polysaccharide Complex 150 MG CAPSULE PO (09:41)
[2018-10-24 10:00] VITALS: PULSE 78; RESP 16; O2SAT 97
[2018-10-24] MEDS: oxyCODONE 5 MG Tablet PO (10:45)
[2018-10-24 15:49] VITALS: BP 119/66; PULSE 74; RESP 24; TEMP 37.1; O2SAT 97
[2018-10-24] MEDS: MELATONIN 10 MG TABLET PO (20:35)
[2018-10-25] MEDS: Nystatin Powder 15gm Bottle 1 APPLIC TOPICAL ×3 (05:49→22:01)
[2018-10-25] MEDS: Amiodarone 200 MG Tablet PO (05:50)
[2018-10-25] MEDS: APIXABAN 5 MG TABLET PO ×2 (05:50→18:05)
[2018-10-25] MEDS: Pantoprazole Sodium 20 MG Tablet PO (05:50)
[2018-10-25] MEDS: Acetaminophen 500 MG Tablet 1000 MG PO ×3 (05:50→22:00)
[2018-10-25] MEDS: Senna/Docusate Sodium 1 Tablet PO ×2 (05:50→18:05)
[2018-10-25] MEDS: Menthol/Lanolin/Calamine/Znox 113 GM Tube 1 APPLIC TOPICAL ×3 (05:51→22:01)
[2018-10-25] MEDS: Iron Polysaccharide Complex 150 MG CAPSULE PO (09:23)
[2018-10-25] MEDS: Multivitamins,Therapeutic Tablet 1 TABLET PO (09:25)
[2018-10-25] MEDS: oxyCODONE 5 MG Tablet PO (10:36)
[2018-10-25 16:00] VITALS: BP 125/62; PULSE 75; RESP 18; TEMP 36.8; O2SAT 97
[2018-10-25] MEDS: MELATONIN 10 MG TABLET PO (22:00)
[2018-10-26] MEDS: Pantoprazole Sodium 20 MG Tablet PO (04:59)
[2018-10-26] MEDS: Menthol/Lanolin/Calamine/Znox 113 GM Tube 1 APPLIC TOPICAL ×3 (04:59→21:19)
[2018-10-26] MEDS: Senna/Docusate Sodium 1 Tablet PO ×2 (04:59→18:13)
[2018-10-26] MEDS: Amiodarone 200 MG Tablet PO (04:59)
[2018-10-26] MEDS: APIXABAN 5 MG TABLET PO ×2 (04:59→18:13)
[2018-10-26] MEDS: Nystatin Powder 15gm Bottle 1 APPLIC TOPICAL ×3 (05:00→21:18)
[2018-10-26] MEDS: Acetaminophen 500 MG Tablet 1000 MG PO ×3 (05:00→21:17)
[2018-10-26] MEDS: Iron Polysaccharide Complex 150 MG CAPSULE PO (07:59)
[2018-10-26] MEDS: Multivitamins,Therapeutic Tablet 1 TABLET PO (08:00)
[2018-10-26 14:49] VITALS: PULSE 79; RESP 18; O2SAT 98
[2018-10-26 15:24] VITALS: BP 112/66; PULSE 77; RESP 20; TEMP 36.9; O2SAT 97
[2018-10-26] MEDS: MELATONIN 10 MG TABLET PO (21:17)
[2018-10-27] MEDS: Menthol/Lanolin/Calamine/Znox 113 GM Tube 1 APPLIC TOPICAL ×3 (05:27→21:15)
[2018-10-27] MEDS: Nystatin Powder 15gm Bottle 1 APPLIC TOPICAL ×3 (05:27→20:57)
[2018-10-27] MEDS: Amiodarone 200 MG Tablet PO (05:28)
[2018-10-27] MEDS: Pantoprazole Sodium 20 MG Tablet PO (05:28)
[2018-10-27] MEDS: Senna/Docusate Sodium 1 Tablet PO ×2 (05:28→16:46)
[2018-10-27] MEDS: APIXABAN 5 MG TABLET PO ×2 (05:29→16:46)
[2018-10-27] MEDS: Polyethylene Glycol 3350 17 GM PACKET PO (05:29)
[2018-10-27] MEDS: Acetaminophen 500 MG Tablet 1000 MG PO ×3 (05:32→20:56)
[2018-10-27] MEDS: Multivitamins,Therapeutic Tablet 1 TABLET PO (08:34)
[2018-10-27] MEDS: Iron Polysaccharide Complex 150 MG CAPSULE PO (08:34)
[2018-10-27] MEDS: oxyCODONE 5 MG Tablet PO (08:34)
[2018-10-27 10:00] VITALS: PULSE 78; RESP 18; O2SAT 97
[2018-10-27 15:58] VITALS: BP 114/64; PULSE 77; RESP 18; TEMP 36.6; O2SAT 98
[2018-10-27] MEDS: MELATONIN 10 MG TABLET PO (20:58)
[2018-10-28] MEDS: Polyethylene Glycol 3350 17 GM PACKET PO (06:16)
[2018-10-28] MEDS: Nystatin Powder 15gm Bottle 1 APPLIC TOPICAL ×3 (06:17→21:11)
[2018-10-28] MEDS: APIXABAN 5 MG TABLET PO ×2 (06:17→17:17)
[2018-10-28] MEDS: Pantoprazole Sodium 20 MG Tablet PO (06:17)
[2018-10-28] MEDS: Senna/Docusate Sodium 1 Tablet PO ×2 (06:17→17:17)
[2018-10-28] MEDS: Acetaminophen 500 MG Tablet 1000 MG PO ×3 (06:17→21:12)
[2018-10-28] MEDS: Amiodarone 200 MG Tablet PO (06:17)
[2018-10-28] MEDS: Menthol/Lanolin/Calamine/Znox 113 GM Tube 1 APPLIC TOPICAL ×3 (06:18→21:11)
[2018-10-28] MEDS: Multivitamins,Therapeutic Tablet 1 TABLET PO (08:09)
[2018-10-28] MEDS: Iron Polysaccharide Complex 150 MG CAPSULE PO (08:09)
[2018-10-28] MEDS: oxyCODONE 5 MG Tablet PO ×2 (08:11→13:36)
[2018-10-28 14:00] VITALS: PULSE 80; RESP 18; O2SAT 98
--- NOTE | 2018-10-28 15:45 | NURSING ---
MEPILEX CHANGED TO PT BOTTOM. RIGHT FORTH TOE OPEN TO AIR.
[2018-10-28 16:00] VITALS: BP 103/60; PULSE 84; RESP 18; TEMP 36.8; O2SAT 95
[2018-10-28] MEDS: MELATONIN 10 MG TABLET PO (21:12)
[2018-10-29] MEDS: Menthol/Lanolin/Calamine/Znox 113 GM Tube 1 APPLIC TOPICAL ×3 (05:36→21:27)
[2018-10-29] MEDS: Polyethylene Glycol 3350 17 GM PACKET PO (05:37)
[2018-10-29] MEDS: Amiodarone 200 MG Tablet PO (05:37)
[2018-10-29] MEDS: APIXABAN 5 MG TABLET PO ×2 (05:37→16:59)
[2018-10-29] MEDS: Pantoprazole Sodium 20 MG Tablet PO (05:42)
[2018-10-29] MEDS: Acetaminophen 500 MG Tablet 1000 MG PO ×3 (05:42→21:27)
[2018-10-29] MEDS: Senna/Docusate Sodium 1 Tablet PO ×2 (05:42→16:59)
[2018-10-29] MEDS: Nystatin Powder 15gm Bottle 1 APPLIC TOPICAL ×3 (05:42→21:28)
[2018-10-29] MEDS: Multivitamins,Therapeutic Tablet 1 TABLET PO (08:12)
[2018-10-29] MEDS: Iron Polysaccharide Complex 150 MG CAPSULE PO (08:12)
[2018-10-29] MEDS: oxyCODONE 5 MG Tablet PO (08:16)
[2018-10-29 15:02] VITALS: BP 126/69; PULSE 72; RESP 20; TEMP 36.8; O2SAT 94
[2018-10-29] MEDS: MELATONIN 10 MG TABLET PO (21:29)
[2018-10-29 21:30] VITALS: PULSE 74; RESP 18; O2SAT 100
[2018-10-30] MEDS: Senna/Docusate Sodium 1 Tablet PO ×2 (05:16→16:54)
[2018-10-30] MEDS: Acetaminophen 500 MG Tablet 1000 MG PO ×3 (05:16→20:11)
[2018-10-30] MEDS: APIXABAN 5 MG TABLET PO ×2 (05:17→16:54)
[2018-10-30] MEDS: Polyethylene Glycol 3350 17 GM PACKET PO (05:17)
[2018-10-30] MEDS: Nystatin Powder 15gm Bottle 1 APPLIC TOPICAL ×3 (05:17→20:06)
[2018-10-30] MEDS: Amiodarone 200 MG Tablet PO (05:17)
[2018-10-30] MEDS: Menthol/Lanolin/Calamine/Znox 113 GM Tube 1 APPLIC TOPICAL ×3 (05:17→20:06)
[2018-10-30] MEDS: Pantoprazole Sodium 20 MG Tablet PO (05:17)
[2018-10-30] MEDS: oxyCODONE 5 MG Tablet PO (08:39)
[2018-10-30] MEDS: Iron Polysaccharide Complex 150 MG CAPSULE PO (08:40)
[2018-10-30] MEDS: Multivitamins,Therapeutic Tablet 1 TABLET PO (08:40)
[2018-10-30 15:25] VITALS: BP 114/72; PULSE 75; RESP 16; TEMP 36.7; O2SAT 92
[2018-10-30 20:00] VITALS: PULSE 76; RESP 16; O2SAT 97
[2018-10-30] MEDS: MELATONIN 10 MG TABLET PO (20:04)
[2018-10-31] MEDS: Acetaminophen 500 MG Tablet 1000 MG PO ×3 (05:25→21:20)
[2018-10-31] MEDS: Senna/Docusate Sodium 1 Tablet PO ×2 (05:26→18:44)
[2018-10-31] MEDS: Pantoprazole Sodium 20 MG Tablet PO (05:26)
[2018-10-31] MEDS: Nystatin Powder 15gm Bottle 1 APPLIC TOPICAL ×3 (05:26→21:22)
[2018-10-31] MEDS: APIXABAN 5 MG TABLET PO ×2 (05:26→18:44)
[2018-10-31] MEDS: Amiodarone 200 MG Tablet PO (05:26)
[2018-10-31] MEDS: Menthol/Lanolin/Calamine/Znox 113 GM Tube 1 APPLIC TOPICAL ×3 (05:26→21:23)
[2018-10-31] MEDS: Polyethylene Glycol 3350 17 GM PACKET PO (05:26)
[2018-10-31 06:30] VITALS: PULSE 70; RESP 18; O2SAT 98
[2018-10-31] MEDS: Multivitamins,Therapeutic Tablet 1 TABLET PO (08:10)
[2018-10-31] MEDS: Iron Polysaccharide Complex 150 MG CAPSULE PO (08:10)
[2018-10-31] MEDS: oxyCODONE 5 MG Tablet PO (08:10)
[2018-10-31 15:03] VITALS: BP 133/57; PULSE 77; RESP 16; TEMP 36.4; O2SAT 94
[2018-10-31] MEDS: MELATONIN 10 MG TABLET PO (21:20)
[2018-11-01] MEDS: APIXABAN 5 MG TABLET PO ×2 (05:03→18:37)
[2018-11-01] MEDS: Acetaminophen 500 MG Tablet 1000 MG PO ×2 (05:03→20:10)
[2018-11-01] MEDS: Senna/Docusate Sodium 1 Tablet PO ×2 (05:03→18:37)
[2018-11-01] MEDS: Pantoprazole Sodium 20 MG Tablet PO (05:03)
[2018-11-01] MEDS: Amiodarone 200 MG Tablet PO (05:03)
[2018-11-01] MEDS: Polyethylene Glycol 3350 17 GM PACKET PO (05:04)
[2018-11-01] MEDS: Menthol/Lanolin/Calamine/Znox 113 GM Tube 1 APPLIC TOPICAL ×2 (05:10→20:15)
[2018-11-01] MEDS: Nystatin Powder 15gm Bottle 1 APPLIC TOPICAL ×2 (06:17→20:14)
[2018-11-01] MEDS: Multivitamins,Therapeutic Tablet 1 TABLET PO (08:00)
[2018-11-01] MEDS: Iron Polysaccharide Complex 150 MG CAPSULE PO (08:01)
--- NOTE | 2018-11-01 15:32 | NURSING ---
PT LEFT BY WHEEL CHAIR FOR A FAMILY [employer] AT 9;AM.
--- NOTE | 2018-11-01 18:00 | NURSING ---
PT ARRIVED BACK TO FLOOR AT 1800 BY WHEEL CHAIR WITH FAMILY.
[2018-11-01] MEDS: MELATONIN 10 MG TABLET PO (20:11)
[2018-11-01 20:16] VITALS: PULSE 74; RESP 16; O2SAT 97
[2018-11-02] MEDS: Amiodarone 200 MG Tablet PO (06:08)
[2018-11-02] MEDS: Acetaminophen 500 MG Tablet 1000 MG PO ×3 (06:08→20:41)
[2018-11-02] MEDS: Pantoprazole Sodium 20 MG Tablet PO (06:08)
[2018-11-02] MEDS: Senna/Docusate Sodium 1 Tablet PO ×2 (06:08→17:19)
[2018-11-02] MEDS: APIXABAN 5 MG TABLET PO ×2 (06:09→17:19)
[2018-11-02] MEDS: Nystatin Powder 15gm Bottle 1 APPLIC TOPICAL ×3 (06:12→20:51)
[2018-11-02] MEDS: Menthol/Lanolin/Calamine/Znox 113 GM Tube 1 APPLIC TOPICAL ×3 (06:12→20:51)
[2018-11-02] MEDS: Multivitamins,Therapeutic Tablet 1 TABLET PO (07:58)
[2018-11-02] MEDS: Iron Polysaccharide Complex 150 MG CAPSULE PO (07:59)
[2018-11-02 15:42] VITALS: BP 121/66; PULSE 75; RESP 24; TEMP 36.4; O2SAT 98
[2018-11-02] MEDS: MELATONIN 10 MG TABLET PO (20:51)
[2018-11-02 20:52] VITALS: PULSE 74; RESP 18; O2SAT 97
[2018-11-03] MEDS: Acetaminophen 500 MG Tablet 1000 MG PO ×3 (05:50→21:07)
[2018-11-03] MEDS: Menthol/Lanolin/Calamine/Znox 113 GM Tube 1 APPLIC TOPICAL ×3 (05:51→21:06)
[2018-11-03] MEDS: Nystatin Powder 15gm Bottle 1 APPLIC TOPICAL ×3 (05:51→21:06)
[2018-11-03] MEDS: Pantoprazole Sodium 20 MG Tablet PO (05:52)
[2018-11-03] MEDS: Senna/Docusate Sodium 1 Tablet PO ×2 (05:52→16:49)
[2018-11-03] MEDS: APIXABAN 5 MG TABLET PO ×2 (05:52→16:49)
[2018-11-03] MEDS: Amiodarone 200 MG Tablet PO (05:52)
[2018-11-03] MEDS: oxyCODONE 5 MG Tablet PO ×2 (08:23→21:05)
[2018-11-03] MEDS: Iron Polysaccharide Complex 150 MG CAPSULE PO (08:23)
[2018-11-03] MEDS: Multivitamins,Therapeutic Tablet 1 TABLET PO (08:26)
--- NOTE | 2018-11-03 09:46 | NURSING ---
Addendum entered by Esther Hollingsworth 11/03/18 10:17: Office returned call and reported that pt will need to be seen after DC from TCU Original Note: consulted dr Gama per order for rt hand trigger finger.
[2018-11-03 15:29] VITALS: BP 141/68; PULSE 79; RESP 16; TEMP 36.8; O2SAT 97
[2018-11-03] MEDS: MELATONIN 10 MG TABLET PO (21:06)
[2018-11-03 21:16] VITALS: PULSE 73; RESP 17
[2018-11-04] MEDS: Acetaminophen 500 MG Tablet 1000 MG PO ×3 (05:18→21:18)
[2018-11-04] MEDS: Amiodarone 200 MG Tablet PO (05:19)
[2018-11-04] MEDS: Pantoprazole Sodium 20 MG Tablet PO (05:19)
[2018-11-04] MEDS: Senna/Docusate Sodium 1 Tablet PO ×2 (05:19→17:36)
[2018-11-04] MEDS: Nystatin Powder 15gm Bottle 1 APPLIC TOPICAL ×3 (05:20→21:19)
[2018-11-04] MEDS: Menthol/Lanolin/Calamine/Znox 113 GM Tube 1 APPLIC TOPICAL ×3 (05:20→21:19)
[2018-11-04] MEDS: oxyCODONE 5 MG Tablet PO ×2 (05:20→11:35)
[2018-11-04] MEDS: APIXABAN 5 MG TABLET PO ×2 (05:20→17:36)
[2018-11-04] MEDS: Iron Polysaccharide Complex 150 MG CAPSULE PO (07:53)
[2018-11-04] MEDS: Multivitamins,Therapeutic Tablet 1 TABLET PO (07:54)
[2018-11-04 11:14] VITALS: PULSE 76; RESP 18; O2SAT 98
[2018-11-04 16:00] VITALS: BP 115/64; PULSE 73; RESP 20; TEMP 36.9; O2SAT 97
[2018-11-04] MEDS: MELATONIN 10 MG TABLET PO (21:20)
[2018-11-05] MEDS: Acetaminophen 500 MG Tablet 1000 MG PO ×3 (05:37→21:42)
[2018-11-05] MEDS: Pantoprazole Sodium 20 MG Tablet PO (05:38)
[2018-11-05] MEDS: Senna/Docusate Sodium 1 Tablet PO ×2 (05:38→17:23)
[2018-11-05] MEDS: APIXABAN 5 MG TABLET PO ×2 (05:38→17:23)
[2018-11-05] MEDS: Amiodarone 200 MG Tablet PO (05:38)
[2018-11-05] MEDS: Menthol/Lanolin/Calamine/Znox 113 GM Tube 1 APPLIC TOPICAL ×3 (05:39→20:03)
[2018-11-05] MEDS: Nystatin Powder 15gm Bottle 1 APPLIC TOPICAL ×3 (05:39→20:03)
[2018-11-05] MEDS: Iron Polysaccharide Complex 150 MG CAPSULE PO (07:55)
[2018-11-05] MEDS: Multivitamins,Therapeutic Tablet 1 TABLET PO (07:55)
[2018-11-05] MEDS: oxyCODONE 5 MG Tablet PO ×2 (08:00→20:05)
[2018-11-05 15:54] VITALS: BP 117/56; PULSE 70; RESP 18; TEMP 37.1; O2SAT 98
[2018-11-05 20:00] VITALS: PULSE 75; RESP 16; O2SAT 99
[2018-11-05] MEDS: MELATONIN 10 MG TABLET PO (21:43)
[2018-11-06] MEDS: Acetaminophen 500 MG Tablet 1000 MG PO ×3 (05:49→21:00)
[2018-11-06] MEDS: Polyethylene Glycol 3350 17 GM PACKET PO (05:50)
[2018-11-06] MEDS: Menthol/Lanolin/Calamine/Znox 113 GM Tube 1 APPLIC TOPICAL ×3 (05:51→21:01)
[2018-11-06] MEDS: APIXABAN 5 MG TABLET PO ×2 (05:51→16:55)
[2018-11-06] MEDS: Nystatin Powder 15gm Bottle 1 APPLIC TOPICAL ×3 (05:51→21:01)
[2018-11-06] MEDS: Senna/Docusate Sodium 1 Tablet PO ×2 (05:51→16:54)
[2018-11-06] MEDS: Pantoprazole Sodium 20 MG Tablet PO (05:51)
[2018-11-06] MEDS: Amiodarone 200 MG Tablet PO (05:51)
[2018-11-06] MEDS: Multivitamins,Therapeutic Tablet 1 TABLET PO (08:16)
[2018-11-06] MEDS: Iron Polysaccharide Complex 150 MG CAPSULE PO (08:16)
[2018-11-06] MEDS: oxyCODONE 5 MG Tablet PO ×2 (08:17→12:24)
[2018-11-06 15:35] VITALS: BP 114/65; PULSE 75; RESP 18; TEMP 37.2; O2SAT 95
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
[2018-11-06 21:00] VITALS: PULSE 76; RESP 18; O2SAT 96
[2018-11-06] MEDS: MELATONIN 10 MG TABLET PO (21:03)
[2018-11-07] MEDS: Acetaminophen 500 MG Tablet 1000 MG PO ×3 (06:24→21:28)
[2018-11-07] MEDS: Menthol/Lanolin/Calamine/Znox 113 GM Tube 1 APPLIC TOPICAL ×3 (06:26→21:25)
[2018-11-07] MEDS: Nystatin Powder 15gm Bottle 1 APPLIC TOPICAL ×3 (06:26→21:26)
[2018-11-07] MEDS: APIXABAN 5 MG TABLET PO ×2 (06:27→16:38)
[2018-11-07] MEDS: Polyethylene Glycol 3350 17 GM PACKET PO (06:28)
[2018-11-07] MEDS: Amiodarone 200 MG Tablet PO (06:29)
[2018-11-07] MEDS: Senna/Docusate Sodium 1 Tablet PO ×2 (06:29→16:38)
[2018-11-07] MEDS: Pantoprazole Sodium 20 MG Tablet PO (06:29)
[2018-11-07 07:00] VITALS: PULSE 78; RESP 16; O2SAT 95
[2018-11-07] MEDS: oxyCODONE 5 MG Tablet PO ×2 (07:46→12:45)
[2018-11-07] MEDS: Iron Polysaccharide Complex 150 MG CAPSULE PO (07:56)
[2018-11-07] MEDS: Multivitamins,Therapeutic Tablet 1 TABLET PO (07:56)
[2018-11-07 15:54] VITALS: BP 126/64; PULSE 80; RESP 18; TEMP 36.4; O2SAT 93
[2018-11-07] MEDS: MELATONIN 10 MG TABLET PO (21:25)
[2018-11-08] MEDS: Amiodarone 200 MG Tablet PO (06:29)
[2018-11-08] MEDS: Acetaminophen 500 MG Tablet 1000 MG PO ×3 (06:29→21:30)
[2018-11-08] MEDS: Senna/Docusate Sodium 1 Tablet PO (06:29)
[2018-11-08] MEDS: APIXABAN 5 MG TABLET PO ×2 (06:29→18:16)
[2018-11-08] MEDS: Pantoprazole Sodium 20 MG Tablet PO (06:30)
[2018-11-08] MEDS: Menthol/Lanolin/Calamine/Znox 113 GM Tube 1 APPLIC TOPICAL ×3 (06:31→21:31)
[2018-11-08] MEDS: Nystatin Powder 15gm Bottle 1 APPLIC TOPICAL ×3 (06:33→21:31)
[2018-11-08] MEDS: Iron Polysaccharide Complex 150 MG CAPSULE PO (08:06)
[2018-11-08] MEDS: oxyCODONE 5 MG Tablet PO ×2 (08:10→21:31)
[2018-11-08] MEDS: Multivitamins,Therapeutic Tablet 1 TABLET PO (08:12)
[2018-11-08 12:24] VITALS: PULSE 77; RESP 18; O2SAT 95
[2018-11-08 15:44] VITALS: BP 124/61; PULSE 70; RESP 16; TEMP 36.4; O2SAT 99
[2018-11-08] MEDS: MELATONIN 10 MG TABLET PO (21:32)
[2018-11-09] MEDS: Menthol/Lanolin/Calamine/Znox 113 GM Tube 1 APPLIC TOPICAL ×3 (06:17→20:39)
[2018-11-09] MEDS: APIXABAN 5 MG TABLET PO ×2 (06:17→18:22)
[2018-11-09] MEDS: Amiodarone 200 MG Tablet PO (06:17)
[2018-11-09] MEDS: Pantoprazole Sodium 20 MG Tablet PO (06:18)
[2018-11-09] MEDS: Nystatin Powder 15gm Bottle 1 APPLIC TOPICAL ×3 (06:18→20:40)
[2018-11-09] MEDS: Acetaminophen 500 MG Tablet 1000 MG PO ×3 (06:19→20:41)
[2018-11-09] MEDS: Multivitamins,Therapeutic Tablet 1 TABLET PO (08:53)
[2018-11-09] MEDS: Iron Polysaccharide Complex 150 MG CAPSULE PO (12:16)
--- NOTE | 2018-11-09 12:17 | NURSING ---
up and about all morning pushing self in WC. no c/o
--- NOTE | 2018-11-09 15:09 | NURSING ---
up in WC visiting w/family. stand to void, SBA w/minor diff.
[2018-11-09 15:25] VITALS: BP 139/74; PULSE 68; RESP 20; TEMP 36.8; O2SAT 97
[2018-11-09] MEDS: MELATONIN 10 MG TABLET PO (20:40)
[2018-11-10] MEDS: APIXABAN 5 MG TABLET PO ×2 (06:21→17:45)
[2018-11-10] MEDS: Menthol/Lanolin/Calamine/Znox 113 GM Tube 1 APPLIC TOPICAL ×3 (06:21→21:28)
[2018-11-10] MEDS: Nystatin Powder 15gm Bottle 1 APPLIC TOPICAL ×3 (06:22→21:28)
[2018-11-10] MEDS: Amiodarone 200 MG Tablet PO (06:22)
[2018-11-10] MEDS: Pantoprazole Sodium 20 MG Tablet PO (06:22)
[2018-11-10] MEDS: Senna/Docusate Sodium 1 Tablet PO ×2 (06:23→17:45)
[2018-11-10] MEDS: Acetaminophen 500 MG Tablet 1000 MG PO ×3 (06:23→21:33)
[2018-11-10] MEDS: Iron Polysaccharide Complex 150 MG CAPSULE PO (08:00)
[2018-11-10] MEDS: Multivitamins,Therapeutic Tablet 1 TABLET PO (08:00)
[2018-11-10] MEDS: oxyCODONE 5 MG Tablet PO (08:00)
[2018-11-10 15:13] VITALS: BP 126/73; PULSE 79; RESP 18; TEMP 37.2; O2SAT 95
--- NOTE | 2018-11-10 19:07 | DCINST_ITS ---
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) Right foot pain (Acute) Arthritis of right foot (Chronic) Pes planus of right foot (Chronic) Difficulty walking (Chronic) You will use the following diet at home:: No restrictions, Regular Your food should be the consistency of: Regular Your liquids should be the consistency of: Regular/Thin Discharge Activity: Return to Normal Activity, May Shower, Use Walker Weight Bearing Status: Weight bearing as tolerated Call your doctor if you observe: Fever of 101 or Higher, Inability to urinate, Inability to have a bowel movement, Shortness of breath, Chest pain, Uncontrolled pain Allergies/Adverse Reactions: Allergies apple Allergy (Verified 09/01/18 15:30) Rash Penicillins [PCN] Allergy (Verified 09/01/18 15:30) Rash Medications to take at Discharge Amiodarone HCl 200 mg PO DAILY 09/01/18 Menthol/Lanolin/Calamine/Znox [Calmoseptine Ointment] 1 applic TOPICAL TID tube 09/03/18 Nystatin Powder [Mycostatin Powder] 1 applic TOPICAL TID bottle 09/03/18 Apixaban [Eliquis] 5 mg PO BID 09/10/18 Apixaban [Eliquis] 10 mg PO BID 09/10/18 Esomeprazole Mag Trihydrate [Nexium] 20 mg PO DAILY 09/10/18 Multivitamin,Therapeutic [Thera] 1 tab PO DAILY 09/10/18 Acetaminophen [Tylenol] 1,000 mg PO Q6H PRN PRN tablet 09/22/18 Bisacodyl [Dulcolax] 10 mg PO DAILY PRN tablet 09/22/18 Iron Polysaccharide Complex [Ferrex 150] 150 mg PO DAILYCM capsule 09/22/18 Melatonin 10 mg PO QHS tablet 09/22/18 Polyethylene Glycol 3350 [Miralax] 17 gm PO DAILY packet 09/22/18 Potassium Chloride [K-Dur] 20 meq PO DAILYCM tablet 09/22/18 Senna/Docusate Sodium [Senokot-S] 1 tablet PO BID tablet 09/22/18 Primary Care Physician: Christos Golden [Primary Care Provider] - Please follow up with your Primary Care Physician in: 1 week. Test Results: Test results from this visit will be discussed in further detail at your follow- up appointment, if applicable. Please Follow Up With: Dr. Fatima Please Follow Up With: Dr. Shah or TATE Lou at [facility] When: at discharge Please Follow Up With: Medhat Capellan DO When: [phone] Please Follow Up With: Russell Westbrook When: [phone] Please Follow Up With: Dr. Romero When: 1 month Proposed Discharge Date: 11/14/18
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
[2018-11-10] MEDS: MELATONIN 10 MG TABLET PO (21:28)
[2018-11-10 22:27] VITALS: PULSE 76; RESP 18; O2SAT 95
[2018-11-11] MEDS: Pantoprazole Sodium 20 MG Tablet PO (05:56)
[2018-11-11] MEDS: APIXABAN 5 MG TABLET PO ×2 (05:56→17:34)
[2018-11-11] MEDS: Acetaminophen 500 MG Tablet 1000 MG PO ×3 (05:56→21:37)
[2018-11-11] MEDS: Senna/Docusate Sodium 1 Tablet PO ×2 (05:56→17:34)
[2018-11-11] MEDS: Amiodarone 200 MG Tablet PO (05:56)
[2018-11-11] MEDS: Nystatin Powder 15gm Bottle 1 APPLIC TOPICAL ×3 (05:58→21:37)
[2018-11-11] MEDS: Menthol/Lanolin/Calamine/Znox 113 GM Tube 1 APPLIC TOPICAL ×3 (05:58→21:37)
[2018-11-11] MEDS: Multivitamins,Therapeutic Tablet 1 TABLET PO (08:16)
[2018-11-11] MEDS: Iron Polysaccharide Complex 150 MG CAPSULE PO (08:17)
[2018-11-11] MEDS: oxyCODONE 5 MG Tablet PO (08:17)
--- NOTE | 2018-11-11 10:47 | PCM.PN.RX ---
<JordanAdrian cary D - Last Filed: 11/11/18 10:47> Progress Note - Pharmacy Subjective: TCU Monthly Note Objective: Allergies apple Allergy (Verified 09/01/18 15:30) Rash Penicillins [PCN] Allergy (Verified 09/01/18 15:30) Rash Current Medications Generic Name Dose Route Start Last Admin Trade Name Freq PRN Reason Stop Dose Admin Acetaminophen 1,000 mg 09/24/18 22:00 11/11/18 05:56 Tylenol PO 1,000 mg Q8 BETH Administration Amiodarone HCl 200 mg 09/11/18 06:00 11/11/18 05:56 Cordarone PO 200 mg DAILY BETH Administration Apixaban 5 mg 09/16/18 06:00 11/11/18 05:56 Eliquis PO 5 mg BID BETH Administration Bisacodyl 10 mg 09/21/18 16:34 Dulcolax PO DAILY PRN Constipation Calamine/Phenol 1 applic 09/10/18 22:00 11/11/18 05:58 Calmoseptine Ointment TOPICAL 1 applicatio TID [facility] Administration Protocol Cholecalciferol 1,000 unit 10/17/18 06:00 11/11/18 05:56 Vitamin D PO 1,000 unit DAILY BETH Administration Melatonin 10 mg 09/15/18 22:00 11/10/18 21:28 Melatonin PO 10 mg QHS BETH Administration Multi-Ingredient Cream 1 applic 11/10/18 22:00 11/11/18 06:00 Eucerin TOPICAL 1 applicatio 0600,2200 BETH Administration Protocol Multivitamins 1 tablet 09/11/18 08:00 11/11/18 08:16 Multivitamin PO 1 tablet DAILY@0800 BETH Administration Nystatin 1 applic 09/10/18 22:00 11/11/18 05:58 Mycostatin Powder TOPICAL 1 applicatio TID [facility] Administration Protocol Oxycodone HCl 5 mg 09/10/18 22:20 11/11/18 08:17 Oxyir PO 5 mg Q4H PRN PRN Administration MOD-SEVERE PAIN (4-10/10) Pantoprazole Sodium 20 mg 09/11/18 06:00 11/11/18 05:56 Protonix PO 20 mg DAILY BETH Administration Polyethylene Glycol 17 gm 09/11/18 06:00 11/11/18 05:58 Miralax PO Not Given DAILY BETH Polysaccharide Iron Complex 150 mg 09/12/18 08:00 11/11/18 08:17 Ferrex 150 PO 150 mg DAILYCM BETH Administration Potassium Chloride 20 meq 09/12/18 08:00 11/11/18 08:16 K-Dur PO 20 meq DAILYCM BETH Administration Senna/Docusate Sodium 1 tablet 09/22/18 06:00 11/11/18 05:56 Senokot-S, Herminia-Colace PO 1 tablet BID BETH Administration Problem List Toe pain, left (Acute) Toe pain, right (Acute) Atrial fibrillation (Acute) DVT (deep venous thrombosis) (Acute) GERD (gastroesophageal reflux disease) (Chronic) Small bowel obstruction (Acute) Pneumocytosis (Acute) Metacarpal bone fracture (Acute) Fracture, metacarpal shaft (Acute) CMC arthritis, thumb, 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) Right foot pain (Acute) Arthritis of right foot (Chronic) Pes planus of right foot (Chronic) Difficulty walking (Chronic) Vital Signs Temp Pulse Resp BP Pulse Ox 98.9 F 76 18 126/73 H 95 11/10/18 15:13 11/10/18 22:27 11/10/18 22:27 11/10/18 15:13 11/10/18 22:27 Oxygen Delivery Method Room Air Weight: 105.347 kg Body Mass Index (BMI) 29.8 Sodium 140 mmol/L (136-145) 10/12/18 06:40 Potassium 4.1 mmol/L (3.5-5.1) 10/12/18 06:40 Chloride 108 mmol/L (98-107) H 10/12/18 06:40 Carbon Dioxide 25.0 mmol/L (21.0-32.0) 10/12/18 06:40 Anion Gap 7 (5-15) 10/12/18 06:40 BUN 21 mg/dL (7-18) H 10/12/18 06:40 Creatinine 0.80 mg/dL (0.70-1.30) 10/12/18 06:40 Est GFR (MDRD) Af Amer 119 mL/min (>60) 10/12/18 06:40 Est GFR (MDRD) Non-Af 98 mL/min (>60) 10/12/18 06:40 BUN/Creatinine Ratio 26.2 RATIO (10-20) H 10/12/18 06:40 Glucose 97 mg/dL (74-106) 10/12/18 06:40 Assessment/Plan: 1) Pain APAP, oxycodone for moderate-severe pain. Continue to monitor daily pain scores, prn medication use. 2) Afib Amiodarone, apixaban. Continue to monitor BP/HR, renal function, for bleeding/clot. 3) Nutrition KCL, Fe, MV, D. Continue to monitor electrolytes. 4) GI Pantoprazole daily. Continue to monitor for GI distress. 5) Sleep Melatonin at HS. Continue to monitor for insomnia. Psychotropic Medications: None Unnecessary Medications: None Bowel Regimen: 6) Senna/s, PEG, bisacodyl. Continue to monitor for constipation/diarrhea. Date of Note:: 11/11/18 - Provider Comments Provider responsibility: Provider responsible to enter orders to implement recommendations <Hank Henriquez Chi - Last Filed: 11/11/18 17:24> Progress Note - Pharmacy Subjective: [] Objective: Allergies apple Allergy (Verified 09/01/18 15:30) Rash Penicillins [PCN] Allergy (Verified 09/01/18 15:30) Rash Current Medications Generic Name Dose Route Start Last Admin Trade Name Freq PRN Reason Stop Dose Admin Acetaminophen 1,000 mg 09/24/18 22:00 11/11/18 13:40 Tylenol PO 1,000 mg Q8 BETH Administration Amiodarone HCl 200 mg 09/11/18 06:00 11/11/18 05:56 Cordarone PO 200 mg DAILY BETH Administration Apixaban 5 mg 09/16/18 06:00 11/11/18 05:56 Eliquis PO 5 mg BID BETH Administration Bisacodyl 10 mg 09/21/18 16:34 Dulcolax PO DAILY PRN Constipation Calamine/Phenol 1 applic 09/10/18 22:00 11/11/18 13:39 Calmoseptine Ointment TOPICAL 1 applicatio TID BETH Administration Protocol Cholecalciferol 1,000 unit 10/17/18 06:00 11/11/18 05:56 Vitamin D PO 1,000 unit DAILY BETH Administration Melatonin 10 mg 09/15/18 22:00 11/10/18 21:28 Melatonin PO 10 mg QHS BETH Administration Multi-Ingredient Cream 1 applic 04/29/19 22:00 11/11/18 06:00 Eucerin TOPICAL 1 applicatio 0600,2200 [facility] Administration Protocol Multivitamins 1 tablet 09/11/18 08:00 11/11/18 08:16 Multivitamin PO 1 tablet DAILY@0800 BETH Administration Nystatin 1 applic 09/10/18 22:00 11/11/18 13:39 Mycostatin Powder TOPICAL 1 applicatio TID [facility] Administration Protocol Oxycodone HCl 5 mg 09/10/18 22:20 11/11/18 08:17 Oxyir PO 5 mg Q4H PRN PRN Administration MOD-SEVERE PAIN (4-10/10) Pantoprazole Sodium 20 mg 09/11/18 06:00 11/11/18 05:56 Protonix PO 20 mg DAILY [facility] Administration Polyethylene Glycol 17 gm 09/11/18 06:00 11/11/18 05:58 Miralax PO Not Given DAILY [facility] Polysaccharide Iron Complex 150 mg 09/12/18 08:00 11/11/18 08:17 Ferrex 150 PO 150 mg DAILYCM [facility] Administration Potassium Chloride 20 meq 09/12/18 08:00 11/11/18 08:16 K-Dur PO 20 meq DAILYCM [facility] Administration Senna/Docusate Sodium 1 tablet 09/22/18 06:00 11/11/18 05:56 Senokot-S, Herminia-Colace PO 1 tablet BID [facility] Administration Problem List Toe pain, left (Acute) Toe pain, right (Acute) Atrial fibrillation (Acute) DVT (deep venous thrombosis) (Acute) GERD (gastroesophageal reflux disease) (Chronic) Small bowel obstruction (Acute) Pneumocytosis (Acute) Metacarpal bone fracture (Acute) Fracture, metacarpal shaft (Acute) CMC arthritis, thumb, 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) Right foot pain (Acute) Arthritis of right foot (Chronic) Pes planus of right foot (Chronic) Difficulty walking (Chronic) Vital Signs Temp Pulse Resp BP Pulse Ox 98.6 F 75 18 122/68 H 96 11/11/18 15:11 11/11/18 15:11 11/11/18 15:11 11/11/18 15:11 11/11/18 15:11 Oxygen Delivery Method Room Air Weight: 105.347 kg Body Mass Index (BMI) 29.8 Sodium 140 mmol/L (136-145) 10/12/18 06:40 Potassium 4.1 mmol/L (3.5-5.1) 10/12/18 06:40 Chloride 108 mmol/L (98-107) H 10/12/18 06:40 Carbon Dioxide 25.0 mmol/L (21.0-32.0) 10/12/18 06:40 Anion Gap 7 (5-15) 10/12/18 06:40 BUN 21 mg/dL (7-18) H 10/12/18 06:40 Creatinine 0.80 mg/dL (0.70-1.30) 10/12/18 06:40 Est GFR (MDRD) Af Amer 119 mL/min (>60) 10/12/18 06:40 Est GFR (MDRD) Non-Af 98 mL/min (>60) 10/12/18 06:40 BUN/Creatinine Ratio 26.2 RATIO (10-20) H 10/12/18 06:40 Glucose 97 mg/dL (74-106) 10/12/18 06:40 Assessment/Plan: Psychotropic Medications: Unnecessary Medications: Bowel Regimen: - Provider Comments Provider responsibility: Provider responsible to enter orders to implement recommendations Provider Comments to Recommendations by Pharmacy: Agree
[2018-11-11 11:30] VITALS: PULSE 72; RESP 18; O2SAT 97
[2018-11-11 15:11] VITALS: BP 122/68; PULSE 75; RESP 18; TEMP 37; O2SAT 96
[2018-11-11] MEDS: MELATONIN 10 MG TABLET PO (21:38)
[2018-11-12] MEDS: Menthol/Lanolin/Calamine/Znox 113 GM Tube 1 APPLIC TOPICAL ×3 (06:08→21:42)
[2018-11-12] MEDS: Acetaminophen 500 MG Tablet 1000 MG PO ×3 (06:11→21:42)
[2018-11-12] MEDS: Pantoprazole Sodium 20 MG Tablet PO (06:11)
[2018-11-12] MEDS: Senna/Docusate Sodium 1 Tablet PO ×2 (06:11→18:34)
[2018-11-12] MEDS: APIXABAN 5 MG TABLET PO ×2 (06:11→18:34)
[2018-11-12] MEDS: Amiodarone 200 MG Tablet PO (06:11)
[2018-11-12] MEDS: Nystatin Powder 15gm Bottle 1 APPLIC TOPICAL ×3 (06:13→21:43)
[2018-11-12 07:00] VITALS: PULSE 74; RESP 16; O2SAT 96
[2018-11-12] MEDS: Multivitamins,Therapeutic Tablet 1 TABLET PO (08:06)
[2018-11-12] MEDS: Iron Polysaccharide Complex 150 MG CAPSULE PO (08:06)
[2018-11-12] MEDS: oxyCODONE 5 MG Tablet PO ×2 (08:08→12:25)
--- NOTE | 2018-11-12 14:09 | CASEMGMT ---
Addendum entered by Kimi Hatfield 11/12/18 14:44: SW spoke with pt . Pt is planning to discharge home on Saturday. Pt will assist with needs at home and children are able to assist with transport home. Therapy is recommending home health PT/OT and pt is agreeable to this. No preference on home company used. Pt has wheelchair, ramp into home, bathroom equipment. Pt will need platform walker. Pt with no preference on DME company used. Referral made to Julieta at [facility]. They are able to accept pt. Plan: D/C home 11/14/18 with [facility] PT/OT and platform walker PHAN Ybarra Original Note: Social Work Spoke with pt previously and she is planning d/c for pt on 11/14/18. Phone call placed to pt and VM left requesting return call to discuss d/c. Therapy is recommending home health PT/OT and state pt will need a platform walker. SW to followup. Plan: D/C home with 11/14/18 with home health PT/OT and a platform walker. PHAN Ybarra
[2018-11-12 15:31] VITALS: BP 118/69; PULSE 72; RESP 20; TEMP 37.1; O2SAT 96
[2018-11-12 15:50] VITALS: BP 118/69; PULSE 72; RESP 20; TEMP 37.1
[2018-11-12] MEDS: MELATONIN 10 MG TABLET PO (21:43)
[2018-11-13] MEDS: Menthol/Lanolin/Calamine/Znox 113 GM Tube 1 APPLIC TOPICAL ×3 (06:01→21:08)
[2018-11-13] MEDS: APIXABAN 5 MG TABLET PO ×2 (06:01→16:44)
[2018-11-13] MEDS: Amiodarone 200 MG Tablet PO (06:02)
[2018-11-13] MEDS: Pantoprazole Sodium 20 MG Tablet PO (06:02)
[2018-11-13] MEDS: Senna/Docusate Sodium 1 Tablet PO ×2 (06:02→16:44)
[2018-11-13] MEDS: Nystatin Powder 15gm Bottle 1 APPLIC TOPICAL ×3 (06:03→21:09)
[2018-11-13] MEDS: Acetaminophen 500 MG Tablet 1000 MG PO ×3 (06:12→21:11)
[2018-11-13 07:30] VITALS: PULSE 76; RESP 16; O2SAT 97
[2018-11-13] MEDS: oxyCODONE 5 MG Tablet PO (08:36)
[2018-11-13] MEDS: Iron Polysaccharide Complex 150 MG CAPSULE PO (08:36)
[2018-11-13] MEDS: Multivitamins,Therapeutic Tablet 1 TABLET PO (08:37)
--- NOTE | 2018-11-13 14:41 | MDS.RN ---
Pain interview for maykel 11/14/18 completed.
[2018-11-13 15:38] VITALS: BP 127/68; PULSE 70; RESP 18; TEMP 36.4; O2SAT 94
--- NOTE | 2018-11-13 15:38 | CASEMGMT ---
Social Work Referral made to [facility] for Wheeled walker with platform. They are able to accommodate and will deliver to pt room prior to d/c. [facility] will follow for PT/OT. No further d/c needs. Plan: D/C home 11/14/18 with spouse. [facility] PT/OT, platform PHAN Heller
[2018-11-13] MEDS: MELATONIN 10 MG TABLET PO (21:09)
[2018-11-14] MEDS: Menthol/Lanolin/Calamine/Znox 113 GM Tube 1 APPLIC TOPICAL (05:56)
[2018-11-14] MEDS: APIXABAN 5 MG TABLET PO (05:56)
[2018-11-14] MEDS: Senna/Docusate Sodium 1 Tablet PO (05:57)
[2018-11-14] MEDS: Nystatin Powder 15gm Bottle 1 APPLIC TOPICAL (05:57)
[2018-11-14] MEDS: Pantoprazole Sodium 20 MG Tablet PO (05:57)
[2018-11-14] MEDS: Amiodarone 200 MG Tablet PO (05:57)
[2018-11-14] MEDS: Acetaminophen 500 MG Tablet 1000 MG PO ×2 (05:59→13:23)
[2018-11-14] MEDS: Iron Polysaccharide Complex 150 MG CAPSULE PO (08:09)
[2018-11-14] MEDS: Multivitamins,Therapeutic Tablet 1 TABLET PO (08:09)
[2018-11-14 10:15] VITALS: PULSE 76; RESP 18; O2SAT 97
--- NOTE | 2018-11-14 13:57 | NURSING ---
Follow Up With Dr. Romero on SaturdayDecember 19 at 9AM. Phone number is [phone] Address: [facility] [address] [place] [address]
[2018-11-14 14:14] VITALS: BP 129/63; PULSE 75; RESP 18; TEMP 36.6; O2SAT 97
--- NOTE | 2018-11-14 14:16 | NURSING ---
Discharge instructions, med list and follow up appointments given to patient and reviewed. No questions at this time
== END 2018-11-14 14:17 | disposition home health service (06) | DRG 560 ==
PROVIDERS: Admitting Provider Family Medicine Geriatric Medicine; Family Provider Internal Medicine; PCP Internal Medicine; Referring Provider Family Medicine Geriatric Medicine; Visit Provider Family Medicine Geriatric Medicine
DX: S32.592D Other specified fracture of left pubis, subsequent encounter for fracture with routine healing (principal); I82.403 Acute embolism and thrombosis of unspecified deep veins of lower extremity, bilateral; N39.0 Urinary tract infection, site not specified; S22.20XD Unspecified fracture of sternum, subsequent encounter for fracture with routine healing; S22.49XD Multiple fractures of ribs, unspecified side, subsequent encounter for fracture with routine healing; S32.008D Other fracture of unspecified lumbar vertebra, subsequent encounter for fracture with routine healing; S32.10XD Unspecified fracture of sacrum, subsequent encounter for fracture with routine healing; S32.69 Other specified fracture of ischium; V49.9XXD Car occupant (driver) (passenger) injured in unspecified traffic accident, subsequent encounter; S82.301E Unspecified fracture of lower end of right tibia, subsequent encounter for open fracture type I or II with routine healing; S82.101 Unspecified fracture of upper end of right tibia; S42.101D Fracture of unspecified part of scapula, right shoulder, subsequent encounter for fracture with routine healing; S42.301D Unspecified fracture of shaft of humerus, right arm, subsequent encounter for fracture with routine healing; S72.302D Unspecified fracture of shaft of left femur, subsequent encounter for closed fracture with routine healing; S72.452D Displaced supracondylar fracture without intracondylar extension of lower end of left femur, subsequent encounter for closed fracture with routine healing; K21.9 Gastro-esophageal reflux disease without esophagitis; B35.4 Tinea corporis; I48.91 Unspecified atrial fibrillation; S62.337D Displaced fracture of neck of fifth metacarpal bone, left hand, subsequent encounter for fracture with routine healing; S62.355D Nondisplaced fracture of shaft of fourth metacarpal bone, left hand, subsequent encounter for fracture with routine healing; I10 Essential (primary) hypertension; B96.20 Unspecified Escherichia coli [E. coli] as the cause of diseases classified elsewhere; Z16.12 Extended spectrum beta lactamase (ESBL) resistance; M18.12 Unilateral primary osteoarthritis of first carpometacarpal joint, left hand; M21.41 Flat foot [pes planus] (acquired), right foot; M19.90 Unspecified osteoarthritis, unspecified site
CPT/HCPCS: 36415; 73060; 73090; 73110; 73120; 73130; 73552; 73560; 73562; 73590; 73620; 80048; 81001; 82040; 82306; 84134; 84550; 85025; 85652; 86140; 87077; 87086; 87088; 87186; 92507; 92526; 93971; 97110; 97116; 97163; 97166; 97167; 97530; 97535; 97802; 97803

== ENCOUNTER 2019-01-09 13:40 | Inpatient (IN) | payer MEDICARE, SELFPAY ==
[2019-01-09 14:05] VITALS: BP 114/62; PULSE 77; RESP 18; TEMP 37.1; O2SAT 97; BMI 29.5
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
[2019-01-09] MEDS: APIXABAN 5 MG TABLET PO (17:14)
[2019-01-09] MEDS: Senna/Docusate Sodium 1 Tablet PO (17:15)
[2019-01-09] MEDS: oxyCODONE 5 MG Tablet PO (20:39)
[2019-01-09] MEDS: MELATONIN 10 MG TABLET PO (20:56)
--- NOTE | 2019-01-09 20:57 | NURSING ---
This nurse was assisting pt with gown. This nurse asked pt if he wanted his gown tied. Pt stated Only if you want your bar unfastened. Pt laughing. This nurse explained to pt that was very inappropriate and will not be tolerated by this nurse. Pt continuing to laugh. Assisted to bed by this nurse and MAGAZINE SUPERVISOR. Resting in bed with call light in reach.
[2019-01-10] MEDS: Polyethylene Glycol 3350 17 GM PACKET PO (05:05)
[2019-01-10] MEDS: APIXABAN 5 MG TABLET PO (05:05)
[2019-01-10] MEDS: Amiodarone 200 MG Tablet PO (05:05)
[2019-01-10] MEDS: Pantoprazole Sodium 40 MG Tablet PO (05:05)
[2019-01-10] MEDS: Senna/Docusate Sodium 1 Tablet PO ×2 (05:05→17:03)
--- NOTE | 2019-01-10 06:50 | NURSING ---
Code statue discussed with pt, pt wishes to be a DNRCC. Purple bracelet applied.
--- NOTE | 2019-01-10 07:45 | NURSING ---
BELL CAPTAIN in room called this nurse in to observe left flank dressing. Dressing was saturated with sanguinous drainage on pad in bed also. Removed old dressing and area cleansed and abd on to observe drainage. Patient agreed to wear pajama pants instead of his own clothes. Will cont to monitor. Same reported to DERICK Frenchpharmacy informaticistshift superintendent and DERICK Kunz day nurse.
[2019-01-10 08:00] LABS: Absolute Lymphocyte Count 1.69 X10^3/ul (0.83-4.51); Absolute Neutrophil Count 4.2 X10^3/uL (2.0-7.7); Basophil# 0.05 X10^3/uL; Basophil% 0.7 % (0-1); Eosinophil# 0.49 X10^3/uL; Eosinophils% 6.7 % (0-5); Hematocrit 25.7 % (40-54); Hemoglobin 8.5 g/dl (13.0-16.5); Lymphocyte # 1.69 X10^3/ul (4.0); Lymphocyte % 23.1 % (19-41); Mean Corp Hgb Conc 33.1 g/gl (32-36); Mean Corpuscular Hgb 32.3 pg (27.0-32.0); Mean Corpuscular Volume 97.7 fL (80-94); Mean Platelet Vol. 8.4 fl (6.2-12.0); Monocyte# 0.73 X10^3/uL; Neutrophil # 4.24 X10^3/uL (2.7-7.7); Neutrophil % 57.7 % (47-70); Platelet Count 339 K/mm3 (150-450); RBC Distribution Width CV 14.7 % (11.6-14.6); RBC Distribution Width SD 52.2 fl (35.1-43.9); Red Blood Count 2.63 M/mm3 (4.6-6.2); White Blood Count 7.3 K/mm3 (4.4-11.0)
[2019-01-10 08:01] LABS: POSITIVE COUNT NO; POSITIVE DIFFERENTIAL NO; POSITIVE MORPHOLOGY NO
[2019-01-10 08:16] LABS: Anion Gap 7 (5-15); BUN 20 mg/dL (7-18); BUN/Creat Ratio 22.7 RATIO (10-20); Calcium,Total 9.1 mg/dL (8.5-10.1); Chloride 105 mmol/L (98-107); Creatinine, Serum 0.88 mg/dL (0.70-1.30); EST Glomerular Filtration Rate 88 mL/min (>60); Est Glom Filt Rate - Afr Amer 106 mL/min (>60); Estimated Creatinine Clearance 75.25 ml/min; Glucose 114 mg/dL (74-106); Potassium 4.4 mmol/L (3.5-5.1); Sodium Level 141 mmol/L (136-145)
[2019-01-10] MEDS: Meloxicam 7.5 MG Tablet PO (08:32)
[2019-01-10 10:29] VITALS: PULSE 78; O2SAT 96
--- NOTE | 2019-01-10 10:41 | NURSING ---
Addendum entered by Joaquina Blackwell 01/10/19 19:02: D/C tello and hold Eliquis until Saturday. Addendum entered by Joaquina Blackwell 01/10/19 10:55: Small area to middle section of large incision on left hip/femur draining moderate to large amount of sanguinous drainage. Remainder of incision only draining scant amount of sanguinous drainage. Incision well approximated, no areas of redness or warmth. Original Note: After therapy, pt noted to have a large amount of sanguineous drainage draining from left hip surgical incision. Tino SEPULVEDA made aware. Dressing that was applied yesterday was saturated and removed. Pt was transferred from recliner chair to bed. Left hip incision cleansed with NS. ABD's applied and secured with tape. Will continue to monitor.
[2019-01-10] MEDS: Tuberculin,Purif.prot.deriv. 50 TU/ML Vial 5 ML ID (10:50)
[2019-01-10 15:41] VITALS: BP 131/68; PULSE 77; RESP 18; TEMP 37; O2SAT 97
[2019-01-10] MEDS: oxyCODONE 5 MG Tablet PO (18:47)
--- NOTE | 2019-01-10 19:18 | NURSING ---
Moderate amount of sanguinous drainage noted draining from middle section of incision to left hip, and left flank incision. New ABD's applied and secured with tape. Joaquina SEPULVEDA made aware. Will continue to monitor.
--- NOTE | 2019-01-10 19:21 | NURSING ---
Hold scheduled [address] Henriquez.
[2019-01-10] MEDS: MELATONIN 10 MG TABLET PO (21:29)
--- NOTE | 2019-01-11 04:20 | NURSING ---
Moderate amount of sanguinous drainage noted draining from middle section of incision to left hip, and left flank incision. New ABD's applied and secured with tape.Will continue to monitor.
[2019-01-11] MEDS: Polyethylene Glycol 3350 17 GM PACKET PO (05:16)
[2019-01-11] MEDS: Senna/Docusate Sodium 1 Tablet PO ×2 (05:16→17:10)
[2019-01-11] MEDS: Amiodarone 200 MG Tablet PO (05:16)
[2019-01-11] MEDS: Pantoprazole Sodium 40 MG Tablet PO (05:16)
--- NOTE | 2019-01-11 06:55 | NURSING ---
This nurse called into roomby TECHNICAL DESIGNER who states Pt wound dressing is soaked through the ABD pads. Left flank dressing noted to be saturated with serosanguenous drainage, and left posterior medial dressing also saturated at this time. Reported to Isabella SEPULVEDA
[2019-01-11] MEDS: Iron Polysaccharide Complex 150 MG CAPSULE PO (08:08)
--- NOTE | 2019-01-11 10:08 | NURSING ---
Mepilex applied to shearing area on right buttock to protect. Joaquina SEPULVEDA aware.
[2019-01-11] MEDS: oxyCODONE 5 MG Tablet PO ×2 (10:48→15:05)
--- NOTE | 2019-01-11 11:49 | NURSING ---
Moderate amount of sanguinous drainage noted draining from middle section of incision to left hip, and left flank incision. New ABD's applied at this time and secured with tape. Joaquina SEPULVEDA aware. Will continue to monitor.
[2019-01-11 15:37] VITALS: BP 138/74; PULSE 74; RESP 28; TEMP 36.5; O2SAT 96
[2019-01-11] MEDS: Acetaminophen 500 MG Tablet 1000 MG PO (20:50)
[2019-01-11] MEDS: MELATONIN 10 MG TABLET PO (20:51)
[2019-01-11 20:55] VITALS: PULSE 76; RESP 18; O2SAT 95
--- NOTE | 2019-01-11 22:58 | NURSING ---
Moderate amount of sanguinous drainage noted draining from middle section of incision to left hip. Area cleansed and new ABD's applied and secured with tape.Will continue to monitor.
[2019-01-12] MEDS: Senna/Docusate Sodium 1 Tablet PO ×2 (05:45→17:17)
[2019-01-12] MEDS: Amiodarone 200 MG Tablet PO (05:46)
[2019-01-12] MEDS: Pantoprazole Sodium 40 MG Tablet PO (05:46)
--- NOTE | 2019-01-12 06:15 | NURSING ---
Moderate amount of sanguinous drainage noted draining from middle section of incision to left hip. Area cleansed and new ABD's applied and secured with tape.Will continue to monitor.Rn aware
--- NOTE | 2019-01-12 07:53 | PCM.PN.RX ---
<Adrian Shaikh D - Last Filed: 01/12/19 07:53> Progress Note - Pharmacy Subjective: TCU Admission Objective: Allergies apple Allergy (Verified 09/01/18 15:30) Rash Penicillins [PCN] Allergy (Verified 09/01/18 15:30) Rash Current Medications Generic Name Dose Route Start Last Admin Trade Name Freq PRN Reason Stop Dose Admin Acetaminophen 1,000 mg 01/09/19 15:09 01/11/19 20:50 Tylenol PO 1,000 mg Q6H PRN PRN Administration MILD PAIN (1-3/10) Amiodarone HCl 200 mg 01/10/19 06:00 01/12/19 05:46 Cordarone PO 200 mg DAILY BETH Administration Apixaban 5 mg 01/09/19 18:00 01/10/19 19:35 Eliquis PO Not Given BID BETH Bisacodyl 10 mg 01/09/19 15:11 Dulcolax RECTAL DAILY PRN PRN Constipation Melatonin 10 mg 01/09/19 22:00 01/11/19 20:51 Melatonin PO 10 mg QHS BETH Administration Nutritional Formula (Lactose Free) 120 ml 01/09/19 22:00 01/12/19 05:46 Ensure Enlive PO 120 ml 4X/DAY BETH Administration Oxycodone HCl 5 mg 01/09/19 15:09 01/11/19 15:05 Oxyir PO 5 mg Q4H PRN PRN Administration SEVERE PAIN (6-10/10) Pantoprazole Sodium 40 mg 01/10/19 06:00 01/12/19 05:46 Protonix PO 40 mg DAILY BETH Administration Polyethylene Glycol 17 gm 01/10/19 06:00 01/12/19 05:45 Miralax PO Not Given DAILY BETH Polysaccharide Iron Complex 150 mg 01/11/19 08:00 01/11/19 08:08 Ferrex 150 PO 150 mg DAILY BETH Administration Senna/Docusate Sodium 1 tablet 01/09/19 18:00 01/12/19 05:45 Senokot-S, Herminia-Colace PO 1 tablet BID BETH Administration Tuberculin PPD 5 tu 01/17/19 10:00 Tubersol, Aplisol, Ppd ID 01/17/19 10:01 X1 ONE Problem List Debility (Acute) 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 (Acute) Paroxysmal atrial fibrillation (Chronic) DVT of lower extremity, bilateral (Chronic) Urinary tract infection due to extended-spectrum beta lactamase (ESBL) producing Escherichia coli (Chronic) Vital Signs Temp Pulse Resp BP Pulse Ox 97.7 F L 76 18 138/74 H 95 01/11/19 15:37 01/11/19 20:55 01/11/19 20:55 01/11/19 15:37 01/11/19 20:55 Oxygen Delivery Method Room Air Weight: 104.25 kg Body Mass Index (BMI) 29.5 Sodium 141 mmol/L (136-145) 01/10/19 07:50 Potassium 4.4 mmol/L (3.5-5.1) 01/10/19 07:50 Chloride 105 mmol/L (98-107) 01/10/19 07:50 Carbon Dioxide 29.0 mmol/L (21.0-32.0) 01/10/19 07:50 7 (5-15) 01/10/19 07:50 BUN 20 mg/dL (7-18) H 01/10/19 07:50 0.88 mg/dL (0.70-1.30) 01/10/19 07:50 Est GFR (MDRD) Af Amer 106 mL/min (>60) 01/10/19 07:50 Est GFR (MDRD) Non-Af 88 mL/min (>60) 01/10/19 07:50 22.7 RATIO (10-20) H 01/10/19 07:50 Glucose 114 mg/dL (74-106) H 01/10/19 07:50 Assessment/Plan: 1) Pain APAP for mild pain, oxycodone for severe pain. Continue to monitor prn medication use, daily pain scores. 2) AFib Amiodarone, apixaban. Continue to monitor BP/HR, renal function, for bleeding/clot. 3) GI Pantoprazole. Continue to monitor s/s GI distress. 4) Sleep Melatonin at HS. Continue to monitor for insomnia. Psychotropic Medications: None Unnecessary Medications: None Bowel Regimen: 5) Senna/s, PEG, prn medication use, for constipation/diarrhea. Date of Note:: 01/12/19 - Provider Comments Provider responsibility: Provider responsible to enter orders to implement recommendations <Martinez,Hank Chi - Last Filed: 01/12/19 08:01> Progress Note - Pharmacy Subjective: [] Objective: Allergies apple Allergy (Verified 09/01/18 15:30) Rash Penicillins [PCN] Allergy (Verified 09/01/18 15:30) Rash Current Medications Generic Name Dose Route Start Last Admin Trade Name Freq PRN Reason Stop Dose Admin Acetaminophen 1,000 mg 01/09/19 15:09 01/11/19 20:50 Tylenol PO 1,000 mg Q6H PRN PRN Administration MILD PAIN (1-310) Amiodarone HCl 200 mg 01/10/19 06:00 01/12/19 05:46 Cordarone PO 200 mg DAILY EBTH Administration Apixaban 5 mg 01/09/19 18:00 01/10/19 19:35 Eliquis PO Not Given BID BETH Bisacodyl 10 mg 01/09/19 15:11 Dulcolax RECTAL DAILY PRN PRN Constipation Melatonin 10 mg 01/09/19 22:00 01/11/19 20:51 Melatonin PO 10 mg QHS BETH Administration Nutritional Formula (Lactose Free) 120 ml 01/09/19 22:00 01/12/19 05:46 Ensure Enlive PO 120 ml 4X/DAY BETH Administration Oxycodone HCl 5 mg 01/09/19 15:09 01/11/19 15:05 Oxyir PO 5 mg Q4H PRN PRN Administration SEVERE PAIN (6-1010) Pantoprazole Sodium 40 mg 01/10/19 06:00 01/12/19 05:46 Protonix PO 40 mg DAILY BETH Administration Polyethylene Glycol 17 gm 01/10/19 06:00 01/12/19 05:45 Miralax PO Not Given DAILY BETH Polysaccharide Iron Complex 150 mg 01/11/19 08:00 01/11/19 08:08 Ferrex 150 PO 150 mg DAILYCM BETH Administration Senna/Docusate Sodium 1 tablet 01/09/19 18:00 01/12/19 05:45 Senokot-S, Herminia-Colace PO 1 tablet BID BETH Administration Tuberculin PPD 5 tu 01/17/19 10:00 Tubersol, Aplisol, Ppd ID 01/17/19 10:01 X1 ONE Problem List Debility (Acute) 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 (Acute) Paroxysmal atrial fibrillation (Chronic) DVT of lower extremity, bilateral (Chronic) Urinary tract infection due to extended-spectrum beta lactamase (ESBL) producing Escherichia coli (Chronic) Vital Signs Temp Pulse Resp BP Pulse Ox 97.7 F L 76 18 138/74 H 95 01/11/19 15:37 01/11/19 20:55 01/11/19 20:55 01/11/19 15:37 01/11/19 20:55 Oxygen Delivery Method Room Air Weight: 104.25 kg Body Mass Index (BMI) 29.5 Sodium 141 mmol/L (136-145) 01/10/19 07:50 Potassium 4.4 mmol/L (3.5-5.1) 01/10/19 07:50 Chloride 105 mmol/L (98-107) 01/10/19 07:50 Carbon Dioxide 29.0 mmol/L (21.0-32.0) 01/10/19 07:50 7 (5-15) 01/10/19 07:50 BUN 20 mg/dL (7-18) H 01/10/19 07:50 0.88 mg/dL (0.70-1.30) 01/10/19 07:50 Est GFR (MDRD) Af Amer 106 mL/min (>60) 01/10/19 07:50 Est GFR (MDRD) Non-Af 88 mL/min (>60) 01/10/19 07:50 22.7 RATIO (10-20) H 01/10/19 07:50 Glucose 114 mg/dL (74-106) H 01/10/19 07:50 Assessment/Plan: Psychotropic Medications: Unnecessary Medications: Bowel Regimen: - Provider Comments Provider responsibility: Provider responsible to enter orders to implement recommendations Provider Comments to Recommendations by Pharmacy: Agree
--- NOTE | 2019-01-12 09:19 | NURSING ---
Left hip incision continues to drain, N.O. H&H today, hold Eliquis until bleeding stops,
[2019-01-12] MEDS: Iron Polysaccharide Complex 150 MG CAPSULE PO (09:42)
[2019-01-12] MEDS: oxyCODONE 5 MG Tablet PO ×2 (09:42→13:59)
[2019-01-12 10:37] LABS: Hematocrit 28.4 % (40-54); Hemoglobin 9.3 g/dl (13.0-16.5); Mean Corp Hgb Conc 32.7 g/gl (32-36); Mean Corpuscular Hgb 32.5 pg (27.0-32.0); Mean Corpuscular Volume 99.3 fL (80-94); Mean Platelet Vol. 8.6 fl (6.2-12.0); Platelet Count 450 K/mm3 (150-450); RBC Distribution Width CV 14.4 % (11.6-14.6); RBC Distribution Width SD 51.9 fl (35.1-43.9); Red Blood Count 2.86 M/mm3 (4.6-6.2); White Blood Count 9.1 K/mm3 (4.4-11.0)
[2019-01-12 10:39] LABS: Differential Indicated MANUAL DIFF; POSITIVE COUNT YES; POSITIVE DIFFERENTIAL NO; POSITIVE MORPHOLOGY YES
--- NOTE | 2019-01-12 10:50 | NURSING ---
Eliquist can not be on HOLD without a resume date per Marino in pharmacy, order states to resume when hip incision stops bleeding, a resume date is set for tomorrow January 13 but will need to be held if bleeding continues.
[2019-01-12 11:44] LABS: Absolute Nucleated RBC Count 0.02 10^3/uL (0-5); NRBC Flagged by Analyzer 0.2 % (0-5)
[2019-01-12 11:49] LABS: Basophil 1 % (0-1); Eosinophil 8 % (0-5); Lymphocyte 17 % (19-41); Metamyelocyte 1 % (0-1); Monocyte 7 % (0-10); Neutrophil-Segmented 62 % (47-70); Platelet Estimate ADEQUATE (ADEQ); Promyelocyte 4 (0-0); Red Cell Morphology NORM C+C NORMAL (NORM C&C); Total Cells Counted 100 (MANUAL DIFF)
[2019-01-12 11:50] LABS: Absolute Lymphocyte Count 1.55 X10^3/ul (0.83-4.51); Absolute Neutrophil Count 5.6 X10^3/uL (2.0-7.7); Lymphocyte # 1.55 X10^3/ul (4.0)
[2019-01-12 15:52] VITALS: BP 135/73; PULSE 68; RESP 18; TEMP 36.6; O2SAT 97
--- NOTE | 2019-01-12 16:47 | CHAPLAIN ---
Type of Pastoral Visit _x__ Initial Visit ___ Follow-up Visit ___ On-call Visit ___ General Patient Visit ___ Spiritual Assessment ___ Family Conference ___ Bereavement ___ Rapid Response ___ Code Blue ___ Other (describe below) Pastoral Care Referral From _x__ Patient ___ Family ___ Nurse ___ Physician ___ Bending Roll Hand ___ Burnisher And Bumper ___ Other (describe below) Sacrament/Intervention _x__ Active listening ___ Anointing ___ Adventist ___ Bereavement ___ Communion ___ Gissell exploration ___ ___ Life review _x__ Prayer ___ Reconciliation ___ Sacrament of Sick _x__ Supportive presence ___ Wedding ___ Other (describe below) Pastoral Comments patient was admitted previously and was seen on several occasions at that time by this bridge design engineer; pt gives update on his new situation and we talk about how he is dealing with this issue
[2019-01-12] MEDS: Doxycycline 100 MG CAPSULE PO (17:17)
[2019-01-12] MEDS: MELATONIN 10 MG TABLET PO (20:12)
[2019-01-12] MEDS: Acetaminophen 500 MG Tablet 1000 MG PO (20:15)
[2019-01-12 21:00] VITALS: PULSE 75; RESP 18; O2SAT 94
--- NOTE | 2019-01-12 21:57 | NURSING ---
Patient requesting to be given Dulcolax tablets prn for constipation. Dr. Henriquez notified of this. New orders given.
[2019-01-13] MEDS: Bisacodyl 5 MG Tablet 10 MG PO (05:32)
[2019-01-13] MEDS: Polyethylene Glycol 3350 17 GM PACKET PO (05:33)
[2019-01-13] MEDS: Pantoprazole Sodium 40 MG Tablet PO (05:33)
[2019-01-13] MEDS: Doxycycline 100 MG CAPSULE PO ×2 (05:33→17:29)
[2019-01-13] MEDS: Senna/Docusate Sodium 1 Tablet PO ×2 (05:33→17:30)
[2019-01-13] MEDS: Amiodarone 200 MG Tablet PO (05:33)
[2019-01-13 07:00] VITALS: PULSE 76; RESP 16; O2SAT 95
[2019-01-13] MEDS: Iron Polysaccharide Complex 150 MG CAPSULE PO (07:57)
--- NOTE | 2019-01-13 10:17 | CASEMGMT ---
Social Work IDT met with pt, spouse and family for care plan meeting. Discussed progressing in therapy, but still following strict touch toe WBS precautions. Pt needing two person assist with transfers, toileting. For the pt to DC home safely, the must be able to safely transfer and support pts weight. Insurance is requesting an update 01/19, and continued stay is not guaranteed. Will continue to follow for DC planning. Sherrie Curtis, GUN TESTER MANAGER OF MANUFACTURING
[2019-01-13 15:38] VITALS: BP 119/61; PULSE 82; RESP 16; O2SAT 98
[2019-01-13] MEDS: Acetaminophen 500 MG Tablet 1000 MG PO (17:29)
[2019-01-13] MEDS: Bisacodyl 10 MG Suppository RECTAL (17:29)
[2019-01-13] MEDS: MELATONIN 10 MG TABLET PO (20:44)
[2019-01-13] MEDS: oxyCODONE 5 MG Tablet PO (20:53)
[2019-01-14] MEDS: Amiodarone 200 MG Tablet PO (05:18)
[2019-01-14] MEDS: Pantoprazole Sodium 40 MG Tablet PO (05:18)
[2019-01-14] MEDS: Doxycycline 100 MG CAPSULE PO ×2 (05:19→17:24)
[2019-01-14] MEDS: oxyCODONE 5 MG Tablet PO (06:16)
[2019-01-14 10:06] LABS: Pathologist Review Reviewed
[2019-01-14] MEDS: Iron Polysaccharide Complex 150 MG CAPSULE PO (11:28)
--- NOTE | 2019-01-14 11:51 | NURSING ---
This RN reviewed medications to be stopped prior to surgery, no changes needed to pt's current medication regimen
--- NOTE | 2019-01-14 15:18 | CASEMGMT ---
Social Work BIMS and PHQ-9 completed for MDS assessment. Sherrie Curtis, PRODUCTION SAMPLER COMPLAINT COORDINATOR
[2019-01-14 15:50] VITALS: BP 134/66; PULSE 77; RESP 18; TEMP 36.6; O2SAT 96
[2019-01-14] MEDS: Acetaminophen 500 MG Tablet 1000 MG PO (16:05)
[2019-01-14] MEDS: Senna/Docusate Sodium 1 Tablet PO (17:24)
[2019-01-14 21:05] VITALS: PULSE 76; RESP 16; O2SAT 99
[2019-01-14] MEDS: MELATONIN 10 MG TABLET PO (21:13)
[2019-01-14] MEDS: Menthol/Lanolin/Calamine/Znox 113 GM Tube 1 APPLIC TOPICAL (21:15)
[2019-01-15] MEDS: Senna/Docusate Sodium 1 Tablet PO ×2 (05:14→16:58)
[2019-01-15] MEDS: Pantoprazole Sodium 40 MG Tablet PO (05:14)
[2019-01-15] MEDS: Polyethylene Glycol 3350 17 GM PACKET PO (05:14)
[2019-01-15] MEDS: Amiodarone 200 MG Tablet PO (05:14)
[2019-01-15] MEDS: Doxycycline 100 MG CAPSULE PO ×2 (05:15→16:58)
[2019-01-15] MEDS: Menthol/Lanolin/Calamine/Znox 113 GM Tube 1 APPLIC TOPICAL ×2 (05:16→19:33)
[2019-01-15] MEDS: Iron Polysaccharide Complex 150 MG CAPSULE PO (08:19)
[2019-01-15] MEDS: Acetaminophen 500 MG Tablet 1000 MG PO ×2 (08:21→16:58)
[2019-01-15 10:00] VITALS: PULSE 80; RESP 18; O2SAT 96
--- NOTE | 2019-01-15 10:32 | NURSING ---
Moderate amount of sanguinous drainage noted draining from middle section of incision to left hip. Area cleansed and new ABD's applied and secured with tape. Will continue to monitor. Joaquina SEPULVEDA aware.
[2019-01-15 14:10] VITALS: BP 114/69; PULSE 78; RESP 18; TEMP 36.3; O2SAT 97
--- NOTE | 2019-01-15 18:25 | NURSING ---
Pt requesting to wear SAM wraps instead of JOHN hose to BLE. Joaquina SEPULVEDA made aware to change order.
[2019-01-15] MEDS: MELATONIN 10 MG TABLET PO (19:33)
[2019-01-16] MEDS: Senna/Docusate Sodium 1 Tablet PO (05:49)
[2019-01-16] MEDS: Doxycycline 100 MG CAPSULE PO ×2 (05:49→17:33)
[2019-01-16] MEDS: Pantoprazole Sodium 40 MG Tablet PO (05:50)
[2019-01-16] MEDS: Amiodarone 200 MG Tablet PO (05:50)
[2019-01-16] MEDS: Iron Polysaccharide Complex 150 MG CAPSULE PO (05:50)
[2019-01-16] MEDS: Menthol/Lanolin/Calamine/Znox 113 GM Tube 1 APPLIC TOPICAL ×2 (05:53→20:51)
[2019-01-16 07:04] VITALS: PULSE 84; RESP 16; O2SAT 94
--- NOTE | 2019-01-16 08:35 | DCINST_ITS ---
- Discharge Diagnoses Current Active Problems: Current Active and Chronic Problems Debility (Acute) 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 (Acute) Paroxysmal atrial fibrillation (Chronic) DVT of lower extremity, bilateral (Chronic) Urinary tract infection due to extended-spectrum beta lactamase (ESBL) producing Escherichia coli (Chronic) You will use the following diet at home:: No restrictions, Regular Your food should be the consistency of: Regular Your liquids should be the consistency of: Regular/Thin Discharge Activity: Return to Normal Activity, May Shower, Use Walker Weight Bearing Status: Toe touch weight bearing - Left. Call your doctor if you observe: Fever of 101 or Higher, Inability to urinate, Inability to have a bowel movement, Dizziness, Chest pain, Uncontrolled pain Allergies/Adverse Reactions: Allergies apple Allergy (Verified 09/01/18 15:30) Rash Penicillins [PCN] Allergy (Verified 09/01/18 15:30) Rash Medications to take at Discharge Amiodarone HCl 200 mg PO DAILY 09/01/18 Acetaminophen [Tylenol] 1,000 mg PO Q6H PRN PRN tablet 09/22/18 Melatonin 10 mg PO QHS 01/09/19 Pantoprazole Sodium [Protonix] 40 mg PO DAILY 01/09/19 Polyethylene Glycol 3350 [Miralax] 17 gm PO DAILY 01/09/19 Senna/Docusate Sodium [Senokot-S] 1 tab PO BID 01/09/19 Bisacodyl [Dulcolax] 10 mg PO DAILY PRN tablet 01/16/19 Doxycycline 100 mg PO BID capsule 01/16/19 Ensure Enlive 120 ml PO 4X/DAY liquid 01/16/19 Iron Polysaccharide Complex [Ferrex 150] 150 mg PO DAILYCM capsule 01/16/19 Menthol/Lanolin/Calamine/Znox [Calmoseptine Ointment] 1 applic TOPICAL 0600,2200 tube 01/16/19 Oxycodone [Oxyir] 5 mg PO Q4H PRN PRN 7 Days tablet 01/16/19 Primary Care Physician: Christos Golden [Primary Care Provider] - Please follow up with your Primary Care Physician in: 1 week. Test Results: Test results from this visit will be discussed in further detail at your follow- up appointment, if applicable. Proposed Discharge Date: 01/19/19
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
--- NOTE | 2019-01-16 09:19 | NURSING ---
Moderate amount of sanguinous drainage noted draining from middle section of incision to left hip. Area cleansed and new ABD's applied and secured with tape. Will continue to monitor. Khadijah SEPULVEDA made aware.
[2019-01-16] MEDS: Acetaminophen 500 MG Tablet 1000 MG PO ×2 (11:49→20:41)
[2019-01-16 15:36] VITALS: BP 139/72; PULSE 75; RESP 16; TEMP 36.9; O2SAT 95
--- NOTE | 2019-01-16 15:39 | CHAPLAIN ---
Type of Pastoral Visit ___ Initial Visit _x__ Follow-up Visit ___ On-call Visit ___ General Patient Visit ___ Spiritual Assessment ___ Family Conference ___ Bereavement ___ Rapid Response ___ Code Blue ___ Other (describe below) Pastoral Care Referral From _x__ Patient ___ Family ___ Nurse ___ Physician ___ Tele Tech ___ Contamination Consultant ___ Other (describe below) Sacrament/Intervention _x__ Active listening ___ Anointing ___ Worship ___ Bereavement ___ Communion ___ Gissell exploration ___ ___ Life review _x__ Prayer ___ Reconciliation ___ Sacrament of Sick ___ Supportive presence ___ Wedding ___ Other (describe below) Pastoral Comments
[2019-01-16] MEDS: MELATONIN 10 MG TABLET PO (20:41)
[2019-01-17] MEDS: Doxycycline 100 MG CAPSULE PO ×2 (05:35→17:20)
[2019-01-17] MEDS: Pantoprazole Sodium 40 MG Tablet PO (05:36)
[2019-01-17] MEDS: Amiodarone 200 MG Tablet PO (05:37)
[2019-01-17] MEDS: Menthol/Lanolin/Calamine/Znox 113 GM Tube 1 APPLIC TOPICAL ×2 (05:53→19:50)
[2019-01-17 07:41] LABS: Absolute Lymphocyte Count 1.47 X10^3/ul (0.83-4.51); Absolute Neutrophil Count 4.9 X10^3/uL (2.0-7.7); Basophil# 0.06 X10^3/uL; Basophil% 0.8 % (0-1); Eosinophil# 0.23 X10^3/uL; Hematocrit 29.9 % (40-54); Hemoglobin 9.7 g/dl (13.0-16.5); Lymphocyte # 1.47 X10^3/ul (4.0); Lymphocyte % 19.2 % (19-41); Mean Corp Hgb Conc 32.4 g/gl (32-36); Mean Corpuscular Hgb 32.4 pg (27.0-32.0); Mean Platelet Vol. 9.2 fl (6.2-12.0); Monocyte# 0.89 X10^3/uL; Monocyte% 11.6 % (0-10); Neutrophil # 4.88 X10^3/uL (2.7-7.7); Neutrophil % 63.6 % (47-70); Platelet Count 415 K/mm3 (150-450); RBC Distribution Width CV 14.9 % (11.6-14.6); RBC Distribution Width SD 50.3 fl (35.1-43.9); Red Blood Count 2.99 M/mm3 (4.6-6.2); White Blood Count 7.7 K/mm3 (4.4-11.0)
[2019-01-17 07:51] LABS: POSITIVE COUNT NO; POSITIVE DIFFERENTIAL NO; POSITIVE MORPHOLOGY NO
[2019-01-17 07:57] LABS: Anion Gap 9 (5-15); BUN 21 mg/dL (7-18); BUN/Creat Ratio 23.2 RATIO (10-20); Chloride 106 mmol/L (98-107); EST Glomerular Filtration Rate 85 mL/min (>60); Est Glom Filt Rate - Afr Amer 103 mL/min (>60); Estimated Creatinine Clearance 73.57 ml/min; Glucose 108 mg/dL (74-106); Potassium 4.3 mmol/L (3.5-5.1); Sodium Level 140 mmol/L (136-145)
[2019-01-17] MEDS: Acetaminophen 500 MG Tablet 1000 MG PO ×2 (08:35→19:50)
[2019-01-17] MEDS: Iron Polysaccharide Complex 150 MG CAPSULE PO (08:38)
[2019-01-17 10:00] VITALS: PULSE 76; RESP 16; O2SAT 96
[2019-01-17] MEDS: oxyCODONE 5 MG Tablet PO (12:32)
[2019-01-17 16:00] VITALS: BP 157/61; PULSE 75; RESP 16; TEMP 36.7; O2SAT 95
[2019-01-17] MEDS: Senna/Docusate Sodium 1 Tablet PO (17:20)
[2019-01-17] MEDS: MELATONIN 10 MG TABLET PO (19:50)
[2019-01-18] MEDS: Menthol/Lanolin/Calamine/Znox 113 GM Tube 1 APPLIC TOPICAL ×2 (05:18→20:09)
[2019-01-18] MEDS: Pantoprazole Sodium 40 MG Tablet PO (05:18)
[2019-01-18] MEDS: Amiodarone 200 MG Tablet PO (05:18)
[2019-01-18] MEDS: Doxycycline 100 MG CAPSULE PO ×2 (05:18→16:30)
[2019-01-18] MEDS: Acetaminophen 500 MG Tablet 1000 MG PO ×2 (05:24→20:10)
[2019-01-18 07:27] LABS: International Normalized Ratio 1.1; Prothrombin Time (Protime)PT. 13.5 SECONDS (11.7-14.9)
[2019-01-18 07:31] LABS: Absolute Lymphocyte Count 1.46 X10^3/ul (0.83-4.51); Absolute Neutrophil Count 4.3 X10^3/uL (2.0-7.7); Basophil# 0.07 X10^3/uL; Eosinophil# 0.31 X10^3/uL; Eosinophils% 4.2 % (0-5); Hematocrit 27.9 % (40-54); Hemoglobin 9.2 g/dl (13.0-16.5); Lymphocyte # 1.46 X10^3/ul (4.0); Mean Platelet Vol. 9.2 fl (6.2-12.0); Monocyte# 1.04 X10^3/uL; Monocyte% 14.2 % (0-10); Neutrophil # 4.33 X10^3/uL (2.7-7.7); Neutrophil % 59.4 % (47-70); Platelet Count 351 K/mm3 (150-450); RBC Distribution Width CV 15.2 % (11.6-14.6); RBC Distribution Width SD 54.6 fl (35.1-43.9); Red Blood Count 2.79 M/mm3 (4.6-6.2); White Blood Count 7.3 K/mm3 (4.4-11.0)
[2019-01-18 07:33] LABS: POSITIVE COUNT NO; POSITIVE DIFFERENTIAL NO; POSITIVE MORPHOLOGY NO
[2019-01-18 07:40] LABS: Anion Gap 5 (5-15); BUN 19 mg/dL (7-18); BUN/Creat Ratio 21.4 RATIO (10-20); Calcium,Total 9.1 mg/dL (8.5-10.1); Chloride 105 mmol/L (98-107); Creatinine, Serum 0.89 mg/dL (0.70-1.30); EST Glomerular Filtration Rate 87 mL/min (>60); Est Glom Filt Rate - Afr Amer 105 mL/min (>60); Glucose 115 mg/dL (74-106); Potassium 4.2 mmol/L (3.5-5.1); Sodium Level 136 mmol/L (136-145)
[2019-01-18] MEDS: Iron Polysaccharide Complex 150 MG CAPSULE PO (08:24)
[2019-01-18 15:43] VITALS: BP 112/80; PULSE 74; RESP 16; TEMP 36.7; O2SAT 97
[2019-01-18 20:10] VITALS: PULSE 70; RESP 16; O2SAT 95
[2019-01-18] MEDS: MELATONIN 10 MG TABLET PO (20:10)
[2019-01-19 09:20] VITALS: PULSE 78; O2SAT 99
[2019-01-19 09:48] VITALS: BP 128/68; PULSE 76; RESP 18; TEMP 36.8; O2SAT 96
--- NOTE | 2019-01-20 08:30 | MDS.RN ---
Information for the mds was obtained from review of the clinical record, interview of resident, staff, and direct observation of resident's care.
== END 2019-01-19 09:45 | disposition short-term general hospital (02) | DRG 560 ==
PROVIDERS: Admitting Provider Family Medicine Geriatric Medicine; Family Provider Internal Medicine; PCP Internal Medicine; Visit Provider Family Medicine Geriatric Medicine
DX: M97.02XD 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, subsequent encounter (principal); T81.31XA Disruption of external operation (surgical) wound, not elsewhere classified, initial encounter; S82.101D Unspecified fracture of upper end of right tibia, subsequent encounter for closed fracture with routine healing; S32.592D Other specified fracture of left pubis, subsequent encounter for fracture with routine healing; S62.309D Unspecified fracture of unspecified metacarpal bone, subsequent encounter for fracture with routine healing; S72.401D Unspecified fracture of lower end of right femur, subsequent encounter for closed fracture with routine healing; S82.301D Unspecified fracture of lower end of right tibia, subsequent encounter for closed fracture with routine healing; S32.009D Unspecified fracture of unspecified lumbar vertebra, subsequent encounter for fracture with routine healing; S22.20XD Unspecified fracture of sternum, subsequent encounter for fracture with routine healing; S22.49XD Multiple fractures of ribs, unspecified side, subsequent encounter for fracture with routine healing; S32.10XD Unspecified fracture of sacrum, subsequent encounter for fracture with routine healing; S42.101D Fracture of unspecified part of scapula, right shoulder, subsequent encounter for fracture with routine healing; V89.2XXD Person injured in unspecified motor-vehicle accident, traffic, subsequent encounter; K21.9 Gastro-esophageal reflux disease without esophagitis; I10 Essential (primary) hypertension; I48.0 Paroxysmal atrial fibrillation; M19.071 Primary osteoarthritis, right ankle and foot; Z86.718 Personal history of other venous thrombosis and embolism; M21.40 Flat foot [pes planus] (acquired), unspecified foot
CPT/HCPCS: 36415; 80048; 85025; 85610; 97110; 97116; 97162; 97166; 97530; 97535; 97802

== ENCOUNTER 2019-01-23 20:50 | Inpatient (IN) | payer MEDICARE, SELFPAY ==
[2019-01-09 14:05] VITALS: BMI 29.5
--- NOTE | 2019-01-23 20:50 | NURSING ---
Patient arrived to unit via wheelchair from [place]. Oriented to room and call light.
[2019-01-23 21:13] VITALS: BP 148/82; PULSE 91; PULSE 96; RESP 16; RESP 18; TEMP 36.8; O2SAT 96; BMI 29.2
[2019-01-24] MEDS: 0.9% NaCl IVPB Med Flush (250 mL) 15 ML IV (00:02)
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
[2019-01-24] MEDS: 0.9% NaCl PICC Flush IV ×3 (00:14→13:39)
[2019-01-24] MEDS: Nystatin Powder 15gm Bottle 1 APPLIC TOPICAL ×2 (05:11→21:24)
[2019-01-24] MEDS: Menthol/Lanolin/Calamine/Znox 113 GM Tube 1 APPLIC TOPICAL ×2 (05:12→21:22)
[2019-01-24] MEDS: Doxycycline 100 MG CAPSULE PO ×2 (05:13→17:10)
[2019-01-24] MEDS: Senna/Docusate Sodium 1 Tablet 2 TABLET PO ×2 (05:13→17:09)
[2019-01-24] MEDS: Amiodarone 200 MG Tablet PO (05:13)
[2019-01-24] MEDS: APIXABAN 5 MG TABLET PO ×2 (05:14→17:10)
[2019-01-24] MEDS: Meloxicam 7.5 MG Tablet PO (05:15)
--- NOTE | 2019-01-24 05:33 | NURSING ---
Pt drains emptied at this time drain A drained for 50ml and Drain B drained for 30 ml. serosanguineous drainage noted to both proximal and distal drain sites
[2019-01-24] MEDS: Pantoprazole Sodium 40 MG Tablet PO (05:39)
[2019-01-24] MEDS: Iron Polysaccharide Complex 150 MG CAPSULE PO (08:07)
[2019-01-24 09:44] LABS: Absolute Lymphocyte Count 1.05 X10^3/ul (0.83-4.51); Absolute Neutrophil Count 3.5 X10^3/uL (2.0-7.7); Basophil# 0.03 X10^3/uL; Basophil% 0.5 % (0-1); Eosinophil# 0.37 X10^3/uL; Eosinophils% 6.5 % (0-5); Hematocrit 26.8 % (40-54); Hemoglobin 8.7 g/dl (13.0-16.5); Lymphocyte # 1.05 X10^3/ul (4.0); Lymphocyte % 18.6 % (19-41); Mean Corp Hgb Conc 32.5 g/gl (32-36); Mean Corpuscular Hgb 32.8 pg (27.0-32.0); Mean Corpuscular Volume 101.1 fL (80-94); Mean Platelet Vol. 8.9 fl (6.2-12.0); Monocyte# 0.73 X10^3/uL; Monocyte% 12.9 % (0-10); Neutrophil # 3.45 X10^3/uL (2.7-7.7); Neutrophil % 61.1 % (47-70); Platelet Count 250 K/mm3 (150-450); RBC Distribution Width CV 15.3 % (11.6-14.6); RBC Distribution Width SD 56.3 fl (35.1-43.9); Red Blood Count 2.65 M/mm3 (4.6-6.2); White Blood Count 5.7 K/mm3 (4.4-11.0)
[2019-01-24 09:45] LABS: POSITIVE COUNT NO; POSITIVE DIFFERENTIAL NO; POSITIVE MORPHOLOGY NO
[2019-01-24] MEDS: Acetaminophen 500 MG Tablet 1000 MG PO ×2 (10:01→21:16)
[2019-01-24 10:03] LABS: Anion Gap 5 (5-15); BUN 16 mg/dL (7-18); BUN/Creat Ratio 16.9 RATIO (10-20); Calcium,Total 8.9 mg/dL (8.5-10.1); Chloride 104 mmol/L (98-107); Creatinine, Serum 0.95 mg/dL (0.70-1.30); EST Glomerular Filtration Rate 81 mL/min (>60); Est Glom Filt Rate - Afr Amer 98 mL/min (>60); Glucose 132 mg/dL (74-106); Potassium 4.3 mmol/L (3.5-5.1); Sodium Level 138 mmol/L (136-145)
[2019-01-24] MEDS: traMADol 50 MG Tablet PO (10:03)
[2019-01-24] MEDS: Tuberculin,Purif.prot.deriv. 50 TU/ML Vial 5 ML ID (10:04)
--- NOTE | 2019-01-24 14:24 | NURSING ---
DRAINED EMPTIED. #1, 50CC/#2, 10CC.
[2019-01-24 16:00] VITALS: BP 117/62; PULSE 77; RESP 18; TEMP 37; O2SAT 95
[2019-01-24] MEDS: Bisacodyl 5 MG Tablet 10 MG PO (17:09)
[2019-01-24] MEDS: MELATONIN 10 MG TABLET PO (21:16)
[2019-01-25] MEDS: Polyethylene Glycol 3350 17 GM PACKET PO (05:44)
[2019-01-25] MEDS: Amiodarone 200 MG Tablet PO (05:44)
[2019-01-25] MEDS: Pantoprazole Sodium 40 MG Tablet PO (05:44)
[2019-01-25] MEDS: Doxycycline 100 MG CAPSULE PO ×2 (05:44→17:52)
[2019-01-25] MEDS: APIXABAN 5 MG TABLET PO ×2 (05:45→17:53)
[2019-01-25] MEDS: 0.9% NaCl PICC Flush IV ×4 (05:50→21:30)
[2019-01-25] MEDS: Meloxicam 7.5 MG Tablet PO (05:51)
[2019-01-25] MEDS: Senna/Docusate Sodium 1 Tablet 2 TABLET PO ×2 (05:53→17:53)
[2019-01-25] MEDS: Menthol/Lanolin/Calamine/Znox 113 GM Tube 1 APPLIC TOPICAL ×2 (06:03→21:41)
[2019-01-25] MEDS: Nystatin Powder 15gm Bottle 1 APPLIC TOPICAL ×2 (06:03→21:41)
[2019-01-25] MEDS: Iron Polysaccharide Complex 150 MG CAPSULE PO (07:47)
[2019-01-25 09:40] VITALS: PULSE 78; RESP 18; O2SAT 96
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
--- NOTE | 2019-01-25 14:44 | NURSING ---
PT HAD PREVENA BOX IN CAR,ASKED TO BRING IT IN. BOX CONTAINED LICENSE REGISTRATION EXAMINER AND INSTRUCTIONS. PREVENA CHARGING AT THIS TIME AND RUNNING. BOX AND CONTENTS IN PT CLOSET. DERICK BELL AWARE. DERICK IBARRA NOTIFIED DERICK CURRY WOUND NURSE BY EMAIL.
--- NOTE | 2019-01-25 14:53 | NURSING ---
PREVOL DRAINS EMPTIED. #1,10 CC. #2,0 CC.
[2019-01-25 15:33] VITALS: BP 115/61; PULSE 74; RESP 16; TEMP 36.9; O2SAT 99
[2019-01-25] MEDS: Acetaminophen 500 MG Tablet 1000 MG PO ×2 (17:52→23:54)
[2019-01-25] MEDS: MELATONIN 10 MG TABLET PO (21:39)
[2019-01-26] MEDS: Doxycycline 100 MG CAPSULE PO ×2 (06:15→17:05)
[2019-01-26] MEDS: 0.9% NaCl PICC Flush IV ×3 (06:15→21:22)
[2019-01-26] MEDS: Amiodarone 200 MG Tablet PO (06:15)
[2019-01-26] MEDS: Meloxicam 7.5 MG Tablet PO (06:15)
[2019-01-26] MEDS: Pantoprazole Sodium 40 MG Tablet PO (06:15)
[2019-01-26] MEDS: APIXABAN 5 MG TABLET PO ×2 (06:15→17:06)
[2019-01-26] MEDS: Nystatin Powder 15gm Bottle 1 APPLIC TOPICAL ×2 (06:23→21:30)
[2019-01-26] MEDS: Menthol/Lanolin/Calamine/Znox 113 GM Tube 1 APPLIC TOPICAL ×2 (06:23→21:32)
[2019-01-26] MEDS: Iron Polysaccharide Complex 150 MG CAPSULE PO (08:15)
[2019-01-26] MEDS: Acetaminophen 500 MG Tablet 1000 MG PO (11:22)
[2019-01-26] MEDS: traMADol 50 MG Tablet PO (14:59)
[2019-01-26] MEDS: 0.9% NaCl IVPB Med Flush (250 mL) 15 ML IV (15:00)
[2019-01-26 15:51] VITALS: BP 129/52; PULSE 80; RESP 20; TEMP 36.8; O2SAT 99
[2019-01-26] MEDS: MELATONIN 10 MG TABLET PO (21:28)
[2019-01-26 23:16] VITALS: O2SAT 97
[2019-01-27] MEDS: 0.9% NaCl PICC Flush IV ×2 (05:42→14:25)
[2019-01-27] MEDS: Amiodarone 200 MG Tablet PO (05:46)
[2019-01-27] MEDS: Pantoprazole Sodium 40 MG Tablet PO (05:46)
[2019-01-27] MEDS: APIXABAN 5 MG TABLET PO ×2 (05:46→17:16)
[2019-01-27] MEDS: Meloxicam 7.5 MG Tablet PO (05:46)
[2019-01-27] MEDS: Doxycycline 100 MG CAPSULE PO ×2 (05:46→17:16)
[2019-01-27] MEDS: Menthol/Lanolin/Calamine/Znox 113 GM Tube 1 APPLIC TOPICAL ×2 (05:47→22:31)
[2019-01-27] MEDS: Nystatin Powder 15gm Bottle 1 APPLIC TOPICAL ×2 (05:48→22:33)
[2019-01-27] MEDS: Iron Polysaccharide Complex 150 MG CAPSULE PO (08:09)
--- NOTE | 2019-01-27 10:14 | NURSING ---
Addendum entered by Aron Leon 01/27/19 10:28: PT IS EATING SALT WATER TAFFY WHEN CROWN FELL OUT. Original Note: PT CROWN FELL OUT, PLACED IN STERILE CUP. REPORTED TO DERICK MCGILL
[2019-01-27 10:15] VITALS: PULSE 81; RESP 18; O2SAT 97
--- NOTE | 2019-01-27 11:15 | CASEMGMT ---
Insurance: Clinical update faxed this day. Auth # [id number]
[2019-01-27 15:45] VITALS: BP 116/57; PULSE 78; RESP 18; TEMP 37.7; O2SAT 96
--- NOTE | 2019-01-27 16:46 | CHAPLAIN ---
Type of Pastoral Visit ___ Initial Visit _x__ Follow-up Visit ___ On-call Visit ___ General Patient Visit ___ Spiritual Assessment ___ Family Conference ___ Bereavement ___ Rapid Response ___ Code Blue ___ Other (describe below) Pastoral Care Referral From _x__ Patient _x__ Family ___ Nurse ___ Physician ___ Tube Turner ___ Show Operations Supervisor ___ Other (describe below) Sacrament/Intervention _x__ Active listening ___ Anointing ___ Mandaeism ___ Bereavement ___ Communion ___ Gissell exploration ___ ___ Life review _x__ Prayer ___ Reconciliation ___ Sacrament of Sick _x__ Supportive presence ___ Wedding ___ Other (describe below) Pastoral Comments
--- NOTE | 2019-01-27 18:35 | NURSING ---
DRAINEDS EMPTED. #1, 10 CC #2, 50 CC.
[2019-01-27] MEDS: MELATONIN 10 MG TABLET PO (22:32)
[2019-01-28] MEDS: 0.9% NaCl PICC Flush IV ×3 (05:11→22:10)
[2019-01-28] MEDS: Meloxicam 7.5 MG Tablet PO (05:11)
[2019-01-28] MEDS: Doxycycline 100 MG CAPSULE PO ×2 (05:11→17:02)
[2019-01-28] MEDS: APIXABAN 5 MG TABLET PO ×2 (05:11→17:03)
[2019-01-28] MEDS: Pantoprazole Sodium 40 MG Tablet PO (05:11)
[2019-01-28] MEDS: Amiodarone 200 MG Tablet PO (05:11)
[2019-01-28] MEDS: Menthol/Lanolin/Calamine/Znox 113 GM Tube 1 APPLIC TOPICAL ×2 (05:13→20:36)
[2019-01-28] MEDS: Nystatin Powder 15gm Bottle 1 APPLIC TOPICAL ×2 (05:14→20:39)
[2019-01-28] MEDS: Iron Polysaccharide Complex 150 MG CAPSULE PO (08:05)
[2019-01-28] MEDS: 0.9% NaCl IVPB Med Flush (250 mL) 15 ML IV (13:44)
[2019-01-28 15:31] VITALS: BP 121/63; PULSE 83; RESP 16; TEMP 37.2; O2SAT 94
--- NOTE | 2019-01-28 17:10 | CASEMGMT ---
Insurance: 7 additional days approved. Patient approved through 02/03 with an update due 02/03. Auth # [id number].
[2019-01-28 20:30] VITALS: PULSE 88; RESP 18; O2SAT 98
[2019-01-28] MEDS: MELATONIN 10 MG TABLET PO (20:45)
[2019-01-28] MEDS: oxyCODONE 5 MG Tablet PO (20:46)
[2019-01-29] MEDS: APIXABAN 5 MG TABLET PO ×2 (05:08→17:10)
[2019-01-29] MEDS: Amiodarone 200 MG Tablet PO (05:08)
[2019-01-29] MEDS: Menthol/Lanolin/Calamine/Znox 113 GM Tube 1 APPLIC TOPICAL ×2 (05:08→21:02)
[2019-01-29] MEDS: Meloxicam 7.5 MG Tablet PO (05:08)
[2019-01-29] MEDS: Pantoprazole Sodium 40 MG Tablet PO (05:08)
[2019-01-29] MEDS: Doxycycline 100 MG CAPSULE PO ×2 (05:08→17:10)
[2019-01-29] MEDS: Nystatin Powder 15gm Bottle 1 APPLIC TOPICAL ×2 (05:09→21:03)
[2019-01-29] MEDS: 0.9% NaCl PICC Flush IV ×3 (06:49→22:44)
[2019-01-29] MEDS: Iron Polysaccharide Complex 150 MG CAPSULE PO (08:03)
[2019-01-29 10:00] VITALS: PULSE 84; O2SAT 98
--- NOTE | 2019-01-29 10:54 | MDS.RN ---
Pain interview for maykel 01/30/19 completed.
--- NOTE | 2019-01-29 12:11 | NURSING ---
wound photo: left hip
[2019-01-29] MEDS: oxyCODONE 5 MG Tablet PO (12:32)
[2019-01-29] MEDS: 0.9% NaCl IVPB Med Flush (250 mL) 15 ML IV (14:06)
[2019-01-29 16:00] VITALS: BP 125/65; PULSE 82; RESP 18; TEMP 37.1; O2SAT 97
--- NOTE | 2019-01-29 18:19 | NURSING ---
Wound nurse Rosita removed wound vac and drains to left hip. Noted drainage under DSD applied but not saturated. Reported to Colt SEPULVEDA. Will continue to monitor.
[2019-01-29] MEDS: MELATONIN 10 MG TABLET PO (21:03)
[2019-01-29] MEDS: Acetaminophen 500 MG Tablet 1000 MG PO (21:09)
[2019-01-30] MEDS: 0.9% NaCl PICC Flush IV ×3 (05:47→22:05)
[2019-01-30] MEDS: Polyethylene Glycol 3350 17 GM PACKET PO (05:50)
[2019-01-30] MEDS: Nystatin Powder 15gm Bottle 1 APPLIC TOPICAL ×2 (05:52→21:10)
[2019-01-30] MEDS: APIXABAN 5 MG TABLET PO ×2 (05:52→16:48)
[2019-01-30] MEDS: Meloxicam 7.5 MG Tablet PO (05:52)
[2019-01-30] MEDS: Amiodarone 200 MG Tablet PO (05:52)
[2019-01-30] MEDS: Menthol/Lanolin/Calamine/Znox 113 GM Tube 1 APPLIC TOPICAL ×2 (05:52→21:09)
[2019-01-30] MEDS: Doxycycline 100 MG CAPSULE PO ×2 (05:52→16:48)
[2019-01-30] MEDS: Pantoprazole Sodium 40 MG Tablet PO (05:52)
[2019-01-30] MEDS: Iron Polysaccharide Complex 150 MG CAPSULE PO (08:34)
--- NOTE | 2019-01-30 08:52 | CASEMGMT ---
Social Work BIMS and PHQ-9 completed for MDS assessment. Sherrie Curtis, CUFF FOLDER DIRECTOR ADVERTISING
[2019-01-30 12:00] VITALS: O2SAT 98
--- NOTE | 2019-01-30 14:48 | NURSING ---
Pt was off unit for appt. ULISES Navarro states dressing had small amount of drainage.
[2019-01-30] MEDS: 0.9% NaCl IVPB Med Flush (250 mL) 15 ML IV (15:37)
[2019-01-30 15:53] VITALS: BP 129/95; PULSE 77; RESP 16; TEMP 36.9; O2SAT 97
[2019-01-30] MEDS: MELATONIN 10 MG TABLET PO (21:10)
[2019-01-31] MEDS: Doxycycline 100 MG CAPSULE PO ×2 (05:38→17:24)
[2019-01-31] MEDS: Amiodarone 200 MG Tablet PO (05:38)
[2019-01-31] MEDS: Nystatin Powder 15gm Bottle 1 APPLIC TOPICAL ×2 (05:38→21:14)
[2019-01-31] MEDS: Meloxicam 7.5 MG Tablet PO (05:38)
[2019-01-31] MEDS: APIXABAN 5 MG TABLET PO ×2 (05:38→17:24)
[2019-01-31] MEDS: Menthol/Lanolin/Calamine/Znox 113 GM Tube 1 APPLIC TOPICAL ×2 (05:38→21:14)
[2019-01-31] MEDS: Pantoprazole Sodium 40 MG Tablet PO (05:38)
[2019-01-31] MEDS: 0.9% NaCl PICC Flush IV ×3 (06:38→22:17)
[2019-01-31 06:52] LABS: Absolute Lymphocyte Count 1.11 X10^3/uL (0.83-4.51); Absolute Neutrophil Count 3.3 X10^3/uL (2.0-7.7); Basophil# 0.04 X10^3/uL; Basophil% 0.7 % (0-1); Eosinophil# 0.33 X10^3/uL; Hematocrit 27.1 % (40-54); Hemoglobin 9.2 g/dL (13.0-16.5); Lymphocyte # 1.11 X10^3/ul (4.0); Lymphocyte % 20.3 % (19-41); Mean Corp Hgb Conc 33.9 g/dL (32-36); Mean Corpuscular Hgb 34.1 pg (27.0-32.0); Mean Corpuscular Volume 100.4 fL (80-94); Mean Platelet Vol. 9.1 fl (6.2-12.0); Monocyte# 0.66 X10^3/uL; Monocyte% 12.1 % (0-10); Neutrophil # 3.27 X10^3/uL (2.7-7.7); Platelet Count 213 K/mm3 (150-450); RBC Distribution Width CV 14.2 % (11.6-14.6); RBC Distribution Width SD 51.4 fl (35.1-43.9); White Blood Count 5.5 K/mm3 (4.4-11.0)
[2019-01-31 07:21] LABS: Anion Gap 4 (5-15); BUN 18 mg/dL (7-18); BUN/Creat Ratio 21.9 RATIO (10-20); Calcium,Total 8.9 mg/dL (8.5-10.1); Chloride 107 mmol/L (98-107); Creatinine, Serum 0.82 mg/dL (0.70-1.30); EST Glomerular Filtration Rate 95 mL/min (>60); Est Glom Filt Rate - Afr Amer 115 mL/min (>60); Estimated Creatinine Clearance 80.75 ml/min; Glucose 118 mg/dL (74-106); Potassium 4.3 mmol/L (3.5-5.1); Sodium Level 138 mmol/L (136-145)
[2019-01-31] MEDS: Iron Polysaccharide Complex 150 MG CAPSULE PO (07:55)
[2019-01-31 10:00] VITALS: PULSE 80; RESP 18; O2SAT 97
[2019-01-31] MEDS: 0.9% NaCl IVPB Med Flush (250 mL) 15 ML IV (13:18)
[2019-01-31 15:33] VITALS: BP 125/65; PULSE 79; RESP 16; TEMP 37; O2SAT 99
[2019-01-31] MEDS: Senna/Docusate Sodium 1 Tablet 2 TABLET PO (17:25)
[2019-01-31] MEDS: MELATONIN 10 MG TABLET PO (21:14)
[2019-02-01] MEDS: Meloxicam 7.5 MG Tablet PO (05:30)
[2019-02-01] MEDS: APIXABAN 5 MG TABLET PO ×2 (05:30→16:39)
[2019-02-01] MEDS: Amiodarone 200 MG Tablet PO (05:30)
[2019-02-01] MEDS: Doxycycline 100 MG CAPSULE PO ×2 (05:30→16:39)
[2019-02-01] MEDS: Pantoprazole Sodium 40 MG Tablet PO (05:30)
[2019-02-01] MEDS: 0.9% NaCl PICC Flush IV ×3 (05:32→21:34)
[2019-02-01] MEDS: Nystatin Powder 15gm Bottle 1 APPLIC TOPICAL ×2 (05:40→21:55)
[2019-02-01] MEDS: Menthol/Lanolin/Calamine/Znox 113 GM Tube 1 APPLIC TOPICAL ×2 (05:40→21:54)
[2019-02-01] MEDS: Iron Polysaccharide Complex 150 MG CAPSULE PO (08:28)
[2019-02-01] MEDS: 0.9% NaCl IVPB Med Flush (250 mL) 15 ML IV (13:48)
[2019-02-01 16:00] VITALS: BP 124/79; PULSE 77; RESP 16; TEMP 36.9; O2SAT 97
[2019-02-01 21:55] VITALS: PULSE 72; RESP 16; O2SAT 95
[2019-02-01] MEDS: Acetaminophen 500 MG Tablet 1000 MG PO (22:00)
[2019-02-01] MEDS: MELATONIN 10 MG TABLET PO (22:02)
[2019-02-02] MEDS: 0.9% NaCl PICC Flush IV ×3 (05:28→21:35)
[2019-02-02] MEDS: Nystatin Powder 15gm Bottle 1 APPLIC TOPICAL ×2 (05:31→21:49)
[2019-02-02] MEDS: Pantoprazole Sodium 40 MG Tablet PO (05:31)
[2019-02-02] MEDS: Amiodarone 200 MG Tablet PO (05:31)
[2019-02-02] MEDS: Meloxicam 7.5 MG Tablet PO (05:31)
[2019-02-02] MEDS: Doxycycline 100 MG CAPSULE PO ×2 (05:31→17:28)
[2019-02-02] MEDS: APIXABAN 5 MG TABLET PO ×2 (05:31→17:29)
[2019-02-02] MEDS: Menthol/Lanolin/Calamine/Znox 113 GM Tube 1 APPLIC TOPICAL ×2 (05:34→21:51)
[2019-02-02] MEDS: Iron Polysaccharide Complex 150 MG CAPSULE PO (08:20)
--- NOTE | 2019-02-02 14:34 | NURSING ---
DERICK CURRY/WOUND NURSE CHANGED PT MEPILEX TO PT LEFT HIP. PER DERICK CURRY LEAVE MEPILEX ON TILL STAPLE REMOVAL ON 02/05/19. REPORTED TO DERICK BELL
--- NOTE | 2019-02-02 15:26 | NURSING ---
wound photo: left hip
[2019-02-02 15:30] VITALS: BP 114/60; PULSE 76; RESP 22; TEMP 37; O2SAT 95
[2019-02-02] MEDS: Acetaminophen 500 MG Tablet 1000 MG PO (21:46)
[2019-02-02] MEDS: MELATONIN 10 MG TABLET PO (21:48)
[2019-02-03] MEDS: Menthol/Lanolin/Calamine/Znox 113 GM Tube 1 APPLIC TOPICAL ×2 (05:51→21:34)
[2019-02-03] MEDS: 0.9% NaCl IVPB Med Flush (250 mL) 15 ML IV (05:53)
[2019-02-03] MEDS: 0.9% NaCl PICC Flush IV ×3 (05:58→21:57)
[2019-02-03] MEDS: Amiodarone 200 MG Tablet PO (06:08)
[2019-02-03] MEDS: Meloxicam 7.5 MG Tablet PO (06:08)
[2019-02-03] MEDS: APIXABAN 5 MG TABLET PO ×2 (06:08→17:33)
[2019-02-03] MEDS: Nystatin Powder 15gm Bottle 1 APPLIC TOPICAL ×2 (06:08→21:35)
[2019-02-03] MEDS: Doxycycline 100 MG CAPSULE PO ×2 (06:08→17:33)
[2019-02-03] MEDS: Pantoprazole Sodium 40 MG Tablet PO (06:08)
[2019-02-03] MEDS: Iron Polysaccharide Complex 150 MG CAPSULE PO (07:56)
[2019-02-03 10:35] VITALS: PULSE 76; RESP 18; O2SAT 98
--- NOTE | 2019-02-03 11:07 | CASEMGMT ---
Insurance continued stay review submitted. Auth # [id number] PHAN Menon
--- NOTE | 2019-02-03 12:55 | PHA.CONS_ITS ---
<Julio Hrenandez C - Last Filed: 02/03/19 12:55> Progress Note - Pharmacy Subjective: [] TCU Admission Objective: Allergies apple Allergy (Verified 09/01/18 15:30) Rash Penicillins [PCN] Allergy (Verified 09/01/18 15:30) Rash Current Medications Generic Name Dose Route Start Last Admin Trade Name Freq PRN Reason Stop Dose Admin Acetaminophen 1,000 mg 01/24/19 00:34 02/02/19 21:46 Tylenol PO 1,000 mg Q6H PRN PRN Administration MILD PAIN (1-310) Amiodarone HCl 200 mg 01/24/19 06:00 02/03/19 06:08 Cordarone PO 200 mg DAILY BETH Administration Apixaban 5 mg 01/24/19 06:00 02/03/19 06:08 Eliquis PO 5 mg BID BETH Administration Bisacodyl 10 mg 01/23/19 21:33 01/24/19 17:09 Dulcolax PO 10 mg DAILY PRN Administration Constipation Calamine/Phenol 1 applic 01/23/19 22:00 02/03/19 05:51 Calmoseptine Ointment TOPICAL 1 applicatio 0600,2200 BETH Administration Protocol Doxycycline Monohydrate 100 mg 01/24/19 06:00 02/03/19 06:08 Doxycycline PO 100 mg BID BETH Administration Heparin Sodium (Beef Lung) 50 units 01/23/19 21:25 02/02/19 22:36 IV 50 units UD PRN Administration HEPARIN FLUSH Sodium Chloride 250 mls @ 15 mls/hr 01/23/19 21:25 02/03/19 05:53 IV 15 mls/hr .[id number] PRN Administration SALINE FLUSH Meropenem 1 gm/ Sodium 120 mls @ 240 mls/hr 01/23/19 23:10 02/03/19 06:08 Chloride IV 03/04/19 23:11 240 mls/hr Q8 BETH Administration Melatonin 10 mg 01/23/19 22:00 02/02/19 21:48 Melatonin PO 10 mg QHS BETH Administration Meloxicam 7.5 mg 01/24/19 06:00 02/03/19 06:08 Mobic PO 7.5 mg DAILY BETH Administration Multi-Ingredient Cream 1 applic 01/23/19 22:00 02/02/19 21:50 Eucerin TOPICAL 1 applicatio 2200 BETH Administration Protocol Nutritional Formula (Lactose Free) 120 ml 01/23/19 22:00 02/03/19 11:25 Ensure Enlive PO 120 ml 4X/DAY BETH Administration Nystatin 1 applic 01/23/19 22:00 02/03/19 06:08 Mycostatin Powder TOPICAL 1 applicatio 0600,2200 [facility] Administration Protocol Pantoprazole Sodium 40 mg 01/24/19 06:00 02/03/19 06:08 Protonix PO 40 mg DAILY BETH Administration Polyethylene Glycol 17 gm 01/24/19 06:00 02/03/19 06:08 Miralax PO Not Given DAILY BETH Polysaccharide Iron Complex 150 mg 01/24/19 08:00 02/03/19 07:56 Ferrex 150 PO 150 mg DAILYCM [facility] Administration Senna/Docusate Sodium 2 tablet 01/24/19 06:00 02/03/19 06:08 Senokot-S, Herminia-Colace PO Not Given BID [facility] Sodium Chloride 10 - 40 ml 01/23/19 21:25 02/03/19 05:58 IV 30 ml UD PRN Administration PICC FLUSH Tramadol HCl 50 mg 01/24/19 00:35 01/26/19 14:59 Ultram PO 50 mg Q4H PRN PRN Administration MODERATE PAIN (4-5/10) Problem List Hip hematoma, left (Acute) Insomnia (Chronic) Vital Signs Temp Pulse Resp BP Pulse Ox 98.6 F 76 22 H 114/60 95 02/02/19 15:30 02/02/19 15:30 02/02/19 15:30 02/02/19 15:30 02/02/19 15:30 Oxygen Delivery Method Room Air Weight: 102.512 kg Body Mass Index (BMI) 29.2 Sodium 138 mmol/L (136-145) 01/31/19 06:43 Potassium 4.3 mmol/L (3.5-5.1) 01/31/19 06:43 Chloride 107 mmol/L (98-107) 01/31/19 06:43 Carbon Dioxide 27.0 mmol/L (21.0-32.0) 01/31/19 06:43 4 (5-15) L 01/31/19 06:43 BUN 18 mg/dL (7-18) 01/31/19 06:43 0.82 mg/dL (0.70-1.30) 01/31/19 06:43 Est GFR (MDRD) Af Amer 115 mL/min (>60) 01/31/19 06:43 Est GFR (MDRD) Non-Af 95 mL/min (>60) 01/31/19 06:43 21.9 RATIO (10-20) H 01/31/19 06:43 Glucose 118 mg/dL (74-106) H 01/31/19 06:43 Assessment/Plan: 1) Pain: Acetaminophen 1000mg po q6h prn for mild pain, Tramadol 50mg po q4h prn for moderate pain. Please continue to monitor prn usage and for signs/symptoms of increased/decreased pain. 2) GERD: Pantoprazole 40mg po daily. Please continue to monitor for symptoms of GERD 3) Osteoarthritis: Meloxicam 7.5mg po daily. Please continue to monitor for signs/symptoms of bleeding and for osteoarthritis 4) AFib: Amiodarone 200mg po daily, Eliquis 5mg po bid. Pt's pulse rate and rhythm or normal. Please continue to monitor. Please continue to monitor for signs/symptoms of bleeding 5) Left Hip hematoma infection: Meropenem 1gm Iv q8h thru 02/12/19, Doxycycline 100mg po bid. Pt being followed by ID. Psychotropic Medications: Melatonin 10mg po qhs for insomnia. Medication will require a GDR by 07/2019 unless clinically contraindicated Unnecessary Medications: none *Bowel Regimen: Bisacodyl 10mg po daily prn for constipation, Miralax 17gm po daily, Senna/Docusate 2 tablets po bid. Pt has refused 11 of 13 miralax doses and 16 of 21 Senna/Docusate doses. Please consider making these prn. Thanks Date of Note:: 02/03/19 - Provider Comments Provider responsibility: Provider responsible to enter orders to implement recommendations <Hank Henriquez Chi - Last Filed: 02/03/19 16:59> Progress Note - Pharmacy Subjective: [] Objective: Allergies apple Allergy (Verified 09/01/18 15:30) Rash Penicillins [PCN] Allergy (Verified 09/01/18 15:30) Rash Current Medications Generic Name Dose Route Start Last Admin Trade Name Freq PRN Reason Stop Dose Admin Acetaminophen 1,000 mg 01/24/19 00:34 02/02/19 21:46 Tylenol PO 1,000 mg Q6H PRN PRN Administration MILD PAIN (1-310) Amiodarone HCl 200 mg 01/24/19 06:00 02/03/19 06:08 Cordarone PO 200 mg DAILY BETH Administration Apixaban 5 mg 01/24/19 06:00 02/03/19 06:08 Eliquis PO 5 mg BID BETH Administration Bisacodyl 10 mg 01/23/19 21:33 01/24/19 17:09 Dulcolax PO 10 mg DAILY PRN Administration Constipation Calamine/Phenol 1 applic 01/23/19 22:00 02/03/19 05:51 Calmoseptine Ointment TOPICAL 1 applicatio 0600,2200 BETH Administration Protocol Doxycycline Monohydrate 100 mg 01/24/19 06:00 02/03/19 06:08 Doxycycline PO 100 mg BID BETH Administration Heparin Sodium (Beef Lung) 50 units 01/23/19 21:25 02/02/19 22:36 IV 50 units UD PRN Administration HEPARIN FLUSH Sodium Chloride 250 mls @ 15 mls/hr 01/23/19 21:25 02/03/19 05:53 IV 15 mls/hr .[id number] PRN Administration SALINE FLUSH Meropenem 1 gm/ Sodium 120 mls @ 240 mls/hr 01/23/19 23:10 02/03/19 13:10 Chloride IV 03/04/19 23:11 240 mls/hr Q8 BETH Administration Melatonin 10 mg 01/23/19 22:00 02/02/19 21:48 Melatonin PO 10 mg QHS BETH Administration Meloxicam 7.5 mg 01/24/19 06:00 02/03/19 06:08 Mobic PO 7.5 mg DAILY BETH Administration Multi-Ingredient Cream 1 applic 01/23/19 22:00 02/02/19 21:50 Eucerin TOPICAL 1 applicatio 2199 BETH Administration Protocol Nutritional Formula (Lactose Free) 120 ml 01/23/19 22:00 02/03/19 11:25 Ensure Enlive PO 120 ml 4X/DAY BETH Administration Nystatin 1 applic 01/23/19 22:00 02/03/19 06:08 Mycostatin Powder TOPICAL 1 applicatio 0600,2200 BETH Administration Protocol Pantoprazole Sodium 40 mg 01/24/19 06:00 02/03/19 06:08 Protonix PO 40 mg DAILY BETH Administration Polyethylene Glycol 17 gm 01/24/19 06:00 02/03/19 06:08 Miralax PO Not Given DAILY BETH Polysaccharide Iron Complex 150 mg 01/24/19 08:00 02/03/19 07:56 Ferrex 150 PO 150 mg DAILYCM BETH Administration Senna/Docusate Sodium 2 tablet 01/24/19 06:00 02/03/19 06:08 Senokot-S, Herminia-Colace PO Not Given BID BETH Sodium Chloride 10 - 40 ml 01/23/19 21:25 02/03/19 13:10 IV 20 ml UD PRN Administration PICC FLUSH Tramadol HCl 50 mg 01/24/19 00:35 01/26/19 14:59 Ultram PO 50 mg Q4H PRN PRN Administration MODERATE PAIN (4-5/10) Problem List Hip hematoma, left (Acute) Insomnia (Chronic) Vital Signs Temp Pulse Resp BP Pulse Ox 98.4 F 76 20 H 129/70 H 96 02/03/19 15:15 02/03/19 15:15 02/03/19 15:15 02/03/19 15:15 02/03/19 15:15 Oxygen Delivery Method Room Air Weight: 102.512 kg Body Mass Index (BMI) 29.2 Sodium 138 mmol/L (136-145) 01/31/19 06:43 Potassium 4.3 mmol/L (3.5-5.1) 01/31/19 06:43 Chloride 107 mmol/L (98-107) 01/31/19 06:43 Carbon Dioxide 27.0 mmol/L (21.0-32.0) 01/31/19 06:43 4 (5-15) L 01/31/19 06:43 BUN 18 mg/dL (7-18) 01/31/19 06:43 0.82 mg/dL (0.70-1.30) 01/31/19 06:43 Est GFR (MDRD) Af Amer 115 mL/min (>60) 01/31/19 06:43 Est GFR (MDRD) Non-Af 95 mL/min (>60) 07/20/19 06:43 21.9 RATIO (10-20) H 01/31/19 06:43 Glucose 118 mg/dL (74-106) H 01/31/19 06:43 Assessment/Plan: Psychotropic Medications: Unnecessary Medications: Bowel Regimen: - Provider Comments Provider responsibility: Provider responsible to enter orders to implement recommendations Provider Comments to Recommendations by Pharmacy: Agree
[2019-02-03 15:15] VITALS: BP 129/70; PULSE 76; RESP 20; TEMP 36.9; O2SAT 96
--- NOTE | 2019-02-03 15:57 | NURSING ---
FINE CRACKLES TO RIGHT LOWER POST. I.S GIVEN. REPORTED TO DERICK MILLER
[2019-02-03] MEDS: Acetaminophen 500 MG Tablet 1000 MG PO (21:33)
[2019-02-03] MEDS: MELATONIN 10 MG TABLET PO (21:35)
[2019-02-04] MEDS: Amiodarone 200 MG Tablet PO (06:11)
[2019-02-04] MEDS: Pantoprazole Sodium 40 MG Tablet PO (06:11)
[2019-02-04] MEDS: Meloxicam 7.5 MG Tablet PO (06:11)
[2019-02-04] MEDS: Doxycycline 100 MG CAPSULE PO ×2 (06:11→17:04)
[2019-02-04] MEDS: APIXABAN 5 MG TABLET PO ×2 (06:12→17:04)
[2019-02-04] MEDS: Nystatin Powder 15gm Bottle 1 APPLIC TOPICAL ×2 (06:12→21:08)
[2019-02-04] MEDS: Menthol/Lanolin/Calamine/Znox 113 GM Tube 1 APPLIC TOPICAL ×2 (06:12→21:07)
[2019-02-04] MEDS: 0.9% NaCl PICC Flush IV ×3 (06:27→21:06)
[2019-02-04] MEDS: Iron Polysaccharide Complex 150 MG CAPSULE PO (08:14)
[2019-02-04] MEDS: 0.9% NaCl IVPB Med Flush (250 mL) 15 ML IV (14:31)
[2019-02-04 16:00] VITALS: BP 123/73; PULSE 78; RESP 19; TEMP 37.1; O2SAT 95
--- NOTE | 2019-02-04 16:09 | CASEMGMT ---
Social Work IDT met with patient and for care plan meeting. Discussed progress in therapy. Patient is max assist for toileting, min to mod for transfers, standing with supervision, but no walking d/t WBS. Therapy is going to start working on more w/c mobility and strengthening upper body. Pt is receiving IV ATB until 03/05 and cannot administer at home. Pt has wound vac on hip that nursing is continuing to monitor. Goal is to discharge home when medically and physically stable. Will continue to follow. JING MadridW
[2019-02-04] MEDS: Acetaminophen 500 MG Tablet 1000 MG PO (23:03)
[2019-02-04] MEDS: MELATONIN 10 MG TABLET PO (23:03)
[2019-02-05] MEDS: Menthol/Lanolin/Calamine/Znox 113 GM Tube 1 APPLIC TOPICAL ×2 (06:36→20:51)
[2019-02-05] MEDS: Nystatin Powder 15gm Bottle 1 APPLIC TOPICAL ×2 (06:36→20:52)
[2019-02-05] MEDS: APIXABAN 5 MG TABLET PO ×2 (06:38→16:51)
[2019-02-05] MEDS: Meloxicam 7.5 MG Tablet PO (06:38)
[2019-02-05] MEDS: Doxycycline 100 MG CAPSULE PO ×2 (06:38→16:51)
[2019-02-05] MEDS: Pantoprazole Sodium 40 MG Tablet PO (06:38)
[2019-02-05] MEDS: Amiodarone 200 MG Tablet PO (06:39)
[2019-02-05] MEDS: Iron Polysaccharide Complex 150 MG CAPSULE PO (08:40)
[2019-02-05 10:00] VITALS: PULSE 82; O2SAT 99
--- NOTE | 2019-02-05 10:12 | MDS.RN ---
Information for the mds was obtained from review of the clinical record, interview of resident, staff, and direct observation of resident's care.
--- NOTE | 2019-02-05 10:39 | NURSING ---
wound photo: left hip
[2019-02-05] MEDS: 0.9% NaCl IVPB Med Flush (250 mL) 15 ML IV (13:55)
[2019-02-05] MEDS: 0.9% NaCl PICC Flush IV ×2 (13:55→21:00)
[2019-02-05 16:00] VITALS: BP 136/89; PULSE 78; RESP 17; TEMP 37; O2SAT 98
[2019-02-05] MEDS: Acetaminophen 500 MG Tablet 1000 MG PO (21:41)
[2019-02-05] MEDS: MELATONIN 10 MG TABLET PO (21:41)
[2019-02-06] MEDS: 0.9% NaCl PICC Flush IV ×3 (06:09→21:33)
[2019-02-06] MEDS: Nystatin Powder 15gm Bottle 1 APPLIC TOPICAL ×2 (06:13→20:44)
[2019-02-06] MEDS: Menthol/Lanolin/Calamine/Znox 113 GM Tube 1 APPLIC TOPICAL ×2 (06:13→20:43)
[2019-02-06] MEDS: Meloxicam 7.5 MG Tablet PO (06:14)
[2019-02-06] MEDS: APIXABAN 5 MG TABLET PO ×2 (06:14→17:07)
[2019-02-06] MEDS: Amiodarone 200 MG Tablet PO (06:14)
[2019-02-06] MEDS: Doxycycline 100 MG CAPSULE PO ×2 (06:14→17:07)
[2019-02-06] MEDS: Pantoprazole Sodium 40 MG Tablet PO (06:14)
[2019-02-06] MEDS: Iron Polysaccharide Complex 150 MG CAPSULE PO (08:12)
[2019-02-06] MEDS: Acetaminophen 500 MG Tablet 1000 MG PO ×2 (13:01→20:50)
[2019-02-06 15:38] VITALS: BP 103/67; PULSE 77; RESP 18; TEMP 37; O2SAT 97
[2019-02-06 20:30] VITALS: PULSE 70; RESP 16; O2SAT 97
[2019-02-06] MEDS: MELATONIN 10 MG TABLET PO (20:44)
[2019-02-06] MEDS: 0.9% NaCl IVPB Med Flush (250 mL) 15 ML IV (21:28)
[2019-02-07] MEDS: Amiodarone 200 MG Tablet PO (04:52)
[2019-02-07] MEDS: Menthol/Lanolin/Calamine/Znox 113 GM Tube 1 APPLIC TOPICAL ×2 (04:52→21:56)
[2019-02-07] MEDS: Meloxicam 7.5 MG Tablet PO (04:53)
[2019-02-07] MEDS: APIXABAN 5 MG TABLET PO ×2 (04:53→17:10)
[2019-02-07] MEDS: Doxycycline 100 MG CAPSULE PO ×2 (04:53→17:10)
[2019-02-07] MEDS: Pantoprazole Sodium 40 MG Tablet PO (04:53)
[2019-02-07] MEDS: Nystatin Powder 15gm Bottle 1 APPLIC TOPICAL ×2 (04:54→21:57)
[2019-02-07] MEDS: 0.9% NaCl PICC Flush IV ×2 (05:18→22:38)
[2019-02-07 05:40] LABS: Absolute Lymphocyte Count 1.19 X10^3/uL (0.83-4.51); Absolute Neutrophil Count 3.2 X10^3/uL (2.0-7.7); Basophil# 0.04 X10^3/uL; Basophil% 0.7 % (0-1); Eosinophil# 0.34 X10^3/uL; Eosinophils% 6.1 % (0-5); Hematocrit 29.4 % (40-54); Hemoglobin 9.7 g/dL (13.0-16.5); Lymphocyte # 1.19 X10^3/ul (4.0); Lymphocyte % 21.4 % (19-41); Mean Corpuscular Hgb 33.1 pg (27.0-32.0); Mean Corpuscular Volume 100.3 fL (80-94); Mean Platelet Vol. 9.6 fl (6.2-12.0); Monocyte# 0.78 X10^3/uL; Monocyte% 14.1 % (0-10); Neutrophil # 3.16 X10^3/uL (2.7-7.7); Platelet Count 245 K/mm3 (150-450); RBC Distribution Width CV 13.7 % (11.6-14.6); RBC Distribution Width SD 50.1 fl (35.1-43.9); Red Blood Count 2.93 M/mm3 (4.6-6.2); White Blood Count 5.6 K/mm3 (4.4-11.0)
[2019-02-07 05:53] LABS: Anion Gap 7 (5-15); BUN 26 mg/dL (7-18); BUN/Creat Ratio 31.9 RATIO (10-20); Calcium,Total 9.2 mg/dL (8.5-10.1); Chloride 104 mmol/L (98-107); Creatinine, Serum 0.82 mg/dL (0.70-1.30); EST Glomerular Filtration Rate 96 mL/min (>60); Est Glom Filt Rate - Afr Amer 116 mL/min (>60); Estimated Creatinine Clearance 80.75 ml/min; Glucose 100 mg/dL (74-106); Potassium 4.1 mmol/L (3.5-5.1); Sodium Level 139 mmol/L (136-145)
[2019-02-07] MEDS: Iron Polysaccharide Complex 150 MG CAPSULE PO (08:03)
[2019-02-07 10:00] VITALS: PULSE 84; RESP 18; O2SAT 98
--- NOTE | 2019-02-07 14:49 | NURSING ---
Addendum entered by Esther Hollingsworth 02/07/19 17:38: cathflo effective, good blood return to both lines. Addendum entered by Esther Hollingsworth 02/07/19 15:29: DERICK Mishra postal supervisor notified, will be up to administer. Original Note: Dual PICC line occluded, dr collado updated, new order to administer cathflo.
[2019-02-07 15:34] VITALS: BP 112/70; PULSE 82; RESP 20; TEMP 36.8; O2SAT 96
[2019-02-07] MEDS: Alteplase 2 MG/2 ML Vial IV (16:55)
[2019-02-07] MEDS: MELATONIN 10 MG TABLET PO (21:57)
[2019-02-07] MEDS: Acetaminophen 500 MG Tablet 1000 MG PO (22:03)
[2019-02-07] MEDS: 0.9% NaCl IVPB Med Flush (250 mL) 15 ML IV (22:37)
[2019-02-08] MEDS: Meloxicam 7.5 MG Tablet PO (06:01)
[2019-02-08] MEDS: Nystatin Powder 15gm Bottle 1 APPLIC TOPICAL ×2 (06:01→21:50)
[2019-02-08] MEDS: Pantoprazole Sodium 40 MG Tablet PO (06:01)
[2019-02-08] MEDS: Menthol/Lanolin/Calamine/Znox 113 GM Tube 1 APPLIC TOPICAL ×2 (06:01→21:48)
[2019-02-08] MEDS: Amiodarone 200 MG Tablet PO (06:01)
[2019-02-08] MEDS: APIXABAN 5 MG TABLET PO ×2 (06:01→16:40)
[2019-02-08] MEDS: Doxycycline 100 MG CAPSULE PO ×2 (06:01→16:40)
[2019-02-08] MEDS: 0.9% NaCl PICC Flush IV ×3 (06:22→21:51)
[2019-02-08] MEDS: Iron Polysaccharide Complex 150 MG CAPSULE PO (07:59)
[2019-02-08 15:59] VITALS: BP 145/76; PULSE 81; RESP 19; TEMP 37.1; O2SAT 98
[2019-02-08 20:00] VITALS: PULSE 86; RESP 18; O2SAT 98
[2019-02-08] MEDS: MELATONIN 10 MG TABLET PO (21:48)
[2019-02-08] MEDS: Acetaminophen 500 MG Tablet 1000 MG PO (21:52)
[2019-02-08] MEDS: 0.9% NaCl IVPB Med Flush (250 mL) 15 ML IV (21:52)
[2019-02-09] MEDS: Meloxicam 7.5 MG Tablet PO (06:13)
[2019-02-09] MEDS: Amiodarone 200 MG Tablet PO (06:13)
[2019-02-09] MEDS: Menthol/Lanolin/Calamine/Znox 113 GM Tube 1 APPLIC TOPICAL ×2 (06:13→20:35)
[2019-02-09] MEDS: Pantoprazole Sodium 40 MG Tablet PO (06:13)
[2019-02-09] MEDS: Doxycycline 100 MG CAPSULE PO ×2 (06:13→17:10)
[2019-02-09] MEDS: APIXABAN 5 MG TABLET PO ×2 (06:13→17:11)
[2019-02-09] MEDS: Nystatin Powder 15gm Bottle 1 APPLIC TOPICAL ×2 (06:14→20:43)
[2019-02-09] MEDS: 0.9% NaCl PICC Flush IV ×3 (06:45→20:34)
[2019-02-09] MEDS: Iron Polysaccharide Complex 150 MG CAPSULE PO (07:38)
[2019-02-09 16:00] VITALS: BP 125/72; PULSE 80; RESP 18; TEMP 36.8; O2SAT 96
[2019-02-09] MEDS: 0.9% NaCl IVPB Med Flush (250 mL) 15 ML IV (20:34)
[2019-02-09] MEDS: Acetaminophen 500 MG Tablet 1000 MG PO (22:23)
[2019-02-09] MEDS: MELATONIN 10 MG TABLET PO (22:23)
[2019-02-09 22:46] VITALS: PULSE 77; RESP 16; O2SAT 96
[2019-02-10] MEDS: Meloxicam 7.5 MG Tablet PO (06:44)
[2019-02-10] MEDS: Nystatin Powder 15gm Bottle 1 APPLIC TOPICAL ×2 (06:44→21:36)
[2019-02-10] MEDS: Pantoprazole Sodium 40 MG Tablet PO (06:44)
[2019-02-10] MEDS: 0.9% NaCl PICC Flush IV ×3 (06:44→21:43)
[2019-02-10] MEDS: APIXABAN 5 MG TABLET PO ×2 (06:45→17:15)
[2019-02-10] MEDS: Doxycycline 100 MG CAPSULE PO ×2 (06:45→17:14)
[2019-02-10] MEDS: Menthol/Lanolin/Calamine/Znox 113 GM Tube 1 APPLIC TOPICAL ×2 (06:45→21:36)
[2019-02-10] MEDS: Amiodarone 200 MG Tablet PO (06:45)
[2019-02-10] MEDS: Iron Polysaccharide Complex 150 MG CAPSULE PO (07:49)
--- NOTE | 2019-02-10 09:43 | CASEMGMT ---
Insurance: Clinical update faxed to [facility] this day. Auth # [id number]
[2019-02-10 11:00] VITALS: PULSE 81; RESP 18; O2SAT 96
[2019-02-10 15:13] VITALS: BP 126/79; PULSE 79; RESP 18; TEMP 37; O2SAT 97
[2019-02-10] MEDS: MELATONIN 10 MG TABLET PO (20:55)
[2019-02-10] MEDS: Acetaminophen 500 MG Tablet 1000 MG PO (21:03)
[2019-02-10] MEDS: 0.9% NaCl IVPB Med Flush (250 mL) 15 ML IV (21:32)
[2019-02-11] MEDS: Amiodarone 200 MG Tablet PO (05:05)
[2019-02-11] MEDS: Meloxicam 7.5 MG Tablet PO (05:05)
[2019-02-11] MEDS: Doxycycline 100 MG CAPSULE PO ×2 (05:05→17:44)
[2019-02-11] MEDS: 0.9% NaCl PICC Flush IV ×3 (05:05→22:30)
[2019-02-11] MEDS: APIXABAN 5 MG TABLET PO ×2 (05:06→17:44)
[2019-02-11] MEDS: Pantoprazole Sodium 40 MG Tablet PO (05:06)
[2019-02-11] MEDS: Nystatin Powder 15gm Bottle 1 APPLIC TOPICAL ×2 (05:09→22:27)
[2019-02-11] MEDS: Menthol/Lanolin/Calamine/Znox 113 GM Tube 1 APPLIC TOPICAL ×2 (05:09→22:25)
[2019-02-11 05:11] VITALS: BP 144/84; PULSE 80
[2019-02-11] MEDS: Iron Polysaccharide Complex 150 MG CAPSULE PO (08:19)
[2019-02-11 15:34] VITALS: BP 135/75; PULSE 78; RESP 20; TEMP 37.1
[2019-02-11] MEDS: Acetaminophen 500 MG Tablet 1000 MG PO (22:24)
[2019-02-11] MEDS: MELATONIN 10 MG TABLET PO (22:27)
[2019-02-11 22:30] VITALS: PULSE 79; RESP 16; O2SAT 96
[2019-02-11] MEDS: 0.9% NaCl IVPB Med Flush (250 mL) 15 ML IV (22:33)
[2019-02-12] MEDS: 0.9% NaCl PICC Flush IV ×3 (05:14→21:59)
[2019-02-12] MEDS: Meloxicam 7.5 MG Tablet PO (05:32)
[2019-02-12] MEDS: Menthol/Lanolin/Calamine/Znox 113 GM Tube 1 APPLIC TOPICAL ×2 (05:33→19:41)
[2019-02-12] MEDS: Doxycycline 100 MG CAPSULE PO ×2 (05:33→17:10)
[2019-02-12] MEDS: Amiodarone 200 MG Tablet PO (05:33)
[2019-02-12] MEDS: Pantoprazole Sodium 40 MG Tablet PO (05:33)
[2019-02-12] MEDS: Nystatin Powder 15gm Bottle 1 APPLIC TOPICAL ×2 (05:33→19:41)
[2019-02-12] MEDS: APIXABAN 5 MG TABLET PO ×2 (05:33→17:10)
[2019-02-12] MEDS: Acetaminophen 500 MG Tablet 1000 MG PO ×2 (05:37→22:12)
[2019-02-12] MEDS: Iron Polysaccharide Complex 150 MG CAPSULE PO (07:57)
[2019-02-12 10:00] VITALS: PULSE 78; RESP 16; O2SAT 98
[2019-02-12 16:00] VITALS: BP 107/72; PULSE 80; RESP 16; TEMP 36.6; O2SAT 96
[2019-02-12] MEDS: MELATONIN 10 MG TABLET PO (19:37)
[2019-02-12] MEDS: 0.9% NaCl IVPB Med Flush (250 mL) 15 ML IV (22:00)
[2019-02-13] MEDS: 0.9% NaCl PICC Flush IV (05:56)
[2019-02-13] MEDS: Amiodarone 200 MG Tablet PO (05:58)
[2019-02-13] MEDS: APIXABAN 5 MG TABLET PO ×2 (05:58→16:55)
[2019-02-13] MEDS: Pantoprazole Sodium 40 MG Tablet PO (05:58)
[2019-02-13] MEDS: Meloxicam 7.5 MG Tablet PO (05:58)
[2019-02-13] MEDS: Doxycycline 100 MG CAPSULE PO ×2 (05:58→16:55)
[2019-02-13] MEDS: Nystatin Powder 15gm Bottle 1 APPLIC TOPICAL ×2 (06:01→21:21)
[2019-02-13] MEDS: Menthol/Lanolin/Calamine/Znox 113 GM Tube 1 APPLIC TOPICAL ×2 (06:01→21:29)
[2019-02-13] MEDS: Iron Polysaccharide Complex 150 MG CAPSULE PO (07:50)
[2019-02-13 10:00] VITALS: PULSE 76; RESP 18; O2SAT 97
--- NOTE | 2019-02-13 10:16 | NURSING ---
Pt left for appt with Dr. Westbrook. to transport.
--- NOTE | 2019-02-13 11:28 | NURSING ---
Pt returned from appt with Dr. Westbrook.
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
[2019-02-13 16:00] VITALS: BP 133/62; PULSE 78; RESP 16; TEMP 36.7; O2SAT 96
[2019-02-13] MEDS: Acetaminophen 500 MG Tablet 1000 MG PO (21:19)
[2019-02-13] MEDS: MELATONIN 10 MG TABLET PO (21:20)
[2019-02-13] MEDS: 0.9% NaCl IVPB Med Flush (250 mL) 15 ML IV (21:28)
[2019-02-14] MEDS: 0.9% NaCl PICC Flush IV ×3 (05:21→21:02)
[2019-02-14] MEDS: Pantoprazole Sodium 40 MG Tablet PO (05:23)
[2019-02-14] MEDS: Doxycycline 100 MG CAPSULE PO ×2 (05:23→17:04)
[2019-02-14] MEDS: Amiodarone 200 MG Tablet PO (05:23)
[2019-02-14] MEDS: Meloxicam 7.5 MG Tablet PO (05:23)
[2019-02-14] MEDS: APIXABAN 5 MG TABLET PO ×2 (05:24→17:04)
[2019-02-14] MEDS: Nystatin Powder 15gm Bottle 1 APPLIC TOPICAL ×2 (05:25→21:03)
[2019-02-14] MEDS: Menthol/Lanolin/Calamine/Znox 113 GM Tube 1 APPLIC TOPICAL ×2 (05:26→21:11)
[2019-02-14 05:32] LABS: Absolute Lymphocyte Count 1.21 X10^3/uL (0.83-4.51); Absolute Neutrophil Count 2.5 X10^3/uL (2.0-7.7); Basophil# 0.02 X10^3/uL; Basophil% 0.4 % (0-1); Eosinophil# 0.29 X10^3/uL; Eosinophils% 6.1 % (0-5); Hematocrit 30.1 % (40-54); Lymphocyte # 1.21 X10^3/ul (4.0); Lymphocyte % 25.4 % (19-41); Mean Corp Hgb Conc 33.2 g/dL (32-36); Mean Corpuscular Hgb 33.6 pg (27.0-32.0); Mean Platelet Vol. 9.3 fl (6.2-12.0); Monocyte# 0.71 X10^3/uL; Monocyte% 14.9 % (0-10); Neutrophil % 52.6 % (47-70); Platelet Count 226 K/mm3 (150-450); RBC Distribution Width SD 51.8 fl (35.1-43.9); Red Blood Count 2.98 M/mm3 (4.6-6.2); White Blood Count 4.8 K/mm3 (4.4-11.0)
[2019-02-14 05:51] LABS: Anion Gap 7 (5-15); BUN 22 mg/dL (7-18); BUN/Creat Ratio 28.2 RATIO (10-20); Calcium,Total 8.9 mg/dL (8.5-10.1); Chloride 107 mmol/L (98-107); Creatinine, Serum 0.78 mg/dL (0.70-1.30); EST Glomerular Filtration Rate 101 mL/min (>60); Est Glom Filt Rate - Afr Amer 122 mL/min (>60); Estimated Creatinine Clearance 66.22 ml/min; Glucose 92 mg/dL (74-106); Potassium 4.4 mmol/L (3.5-5.1); Sodium Level 142 mmol/L (136-145)
[2019-02-14] MEDS: Iron Polysaccharide Complex 150 MG CAPSULE PO (08:05)
[2019-02-14 15:26] VITALS: BP 138/77; PULSE 69; RESP 20; TEMP 36.6; O2SAT 97
[2019-02-14] MEDS: Acetaminophen 500 MG Tablet 1000 MG PO (21:02)
[2019-02-14] MEDS: MELATONIN 10 MG TABLET PO (21:04)
[2019-02-14] MEDS: 0.9% NaCl IVPB Med Flush (250 mL) 15 ML IV (21:06)
[2019-02-15] MEDS: 0.9% NaCl PICC Flush IV ×3 (05:18→21:40)
[2019-02-15] MEDS: APIXABAN 5 MG TABLET PO ×2 (05:20→17:15)
[2019-02-15] MEDS: Doxycycline 100 MG CAPSULE PO ×2 (05:21→17:15)
[2019-02-15] MEDS: Pantoprazole Sodium 40 MG Tablet PO (05:21)
[2019-02-15] MEDS: Meloxicam 7.5 MG Tablet PO (05:21)
[2019-02-15] MEDS: Amiodarone 200 MG Tablet PO (05:21)
[2019-02-15] MEDS: Menthol/Lanolin/Calamine/Znox 113 GM Tube 1 APPLIC TOPICAL ×2 (05:23→21:58)
[2019-02-15] MEDS: Nystatin Powder 15gm Bottle 1 APPLIC TOPICAL ×2 (05:23→21:56)
[2019-02-15] MEDS: Iron Polysaccharide Complex 150 MG CAPSULE PO (07:59)
[2019-02-15 10:20] VITALS: PULSE 74; RESP 18; O2SAT 98
--- NOTE | 2019-02-15 13:21 | NURSING ---
PT RIGHT LOWER POST LUNG HAS FINE CRACKLES. TALKED TO PT ABOUT THE IMPORTANCE OF USING THE I.S. PT UNDER STOOD. REPORTED TO DERICK BELL.
[2019-02-15 16:00] VITALS: BP 135/76; PULSE 76; RESP 19; TEMP 36.9; O2SAT 95
[2019-02-15] MEDS: Acetaminophen 500 MG Tablet 1000 MG PO (21:38)
[2019-02-15] MEDS: MELATONIN 10 MG TABLET PO (21:39)
[2019-02-15] MEDS: 0.9% NaCl IVPB Med Flush (250 mL) 15 ML IV (21:46)
[2019-02-16] MEDS: 0.9% NaCl PICC Flush IV ×2 (05:50→14:10)
[2019-02-16] MEDS: APIXABAN 5 MG TABLET PO ×2 (05:52→17:07)
[2019-02-16] MEDS: Meloxicam 7.5 MG Tablet PO (05:52)
[2019-02-16] MEDS: Doxycycline 100 MG CAPSULE PO ×2 (05:52→17:07)
[2019-02-16] MEDS: Amiodarone 200 MG Tablet PO (05:52)
[2019-02-16] MEDS: Pantoprazole Sodium 40 MG Tablet PO (05:52)
[2019-02-16] MEDS: Menthol/Lanolin/Calamine/Znox 113 GM Tube 1 APPLIC TOPICAL ×2 (05:57→21:26)
[2019-02-16] MEDS: Nystatin Powder 15gm Bottle 1 APPLIC TOPICAL ×2 (06:00→21:26)
[2019-02-16] MEDS: Iron Polysaccharide Complex 150 MG CAPSULE PO (08:09)
[2019-02-16 16:00] VITALS: BP 140/87; PULSE 78; RESP 18; TEMP 37; O2SAT 95
[2019-02-16] MEDS: MELATONIN 10 MG TABLET PO (21:24)
[2019-02-16] MEDS: Acetaminophen 500 MG Tablet 1000 MG PO (21:24)
[2019-02-17] MEDS: Nystatin Powder 15gm Bottle 1 APPLIC TOPICAL ×2 (06:03→21:48)
[2019-02-17] MEDS: Pantoprazole Sodium 40 MG Tablet PO (06:04)
[2019-02-17] MEDS: Meloxicam 7.5 MG Tablet PO (06:04)
[2019-02-17] MEDS: Amiodarone 200 MG Tablet PO (06:04)
[2019-02-17] MEDS: APIXABAN 5 MG TABLET PO ×2 (06:04→17:09)
[2019-02-17] MEDS: Doxycycline 100 MG CAPSULE PO ×2 (06:04→17:09)
[2019-02-17] MEDS: 0.9% NaCl PICC Flush IV ×3 (06:09→22:30)
[2019-02-17] MEDS: Menthol/Lanolin/Calamine/Znox 113 GM Tube 1 APPLIC TOPICAL ×2 (06:10→21:47)
[2019-02-17] MEDS: Iron Polysaccharide Complex 150 MG CAPSULE PO (08:04)
[2019-02-17 10:00] VITALS: PULSE 76; RESP 18; O2SAT 98
--- NOTE | 2019-02-17 14:57 | CASEMGMT ---
Addendum entered by Jennifer Hargrove 02/20/19 13:53: Next update due 02/25/19. Auth # [id number]. Original Note: Insurance: Clinical update faxed. Auth # [id number].
[2019-02-17 16:00] VITALS: BP 126/85; PULSE 69; RESP 20; TEMP 36.8; O2SAT 97
[2019-02-17] MEDS: Acetaminophen 500 MG Tablet 1000 MG PO (21:45)
[2019-02-17] MEDS: MELATONIN 10 MG TABLET PO (21:46)
[2019-02-17] MEDS: 0.9% NaCl IVPB Med Flush (250 mL) 15 ML IV (22:30)
[2019-02-18] MEDS: 0.9% NaCl PICC Flush IV ×3 (05:57→21:06)
[2019-02-18] MEDS: Pantoprazole Sodium 40 MG Tablet PO (06:00)
[2019-02-18] MEDS: Amiodarone 200 MG Tablet PO (06:01)
[2019-02-18] MEDS: Doxycycline 100 MG CAPSULE PO ×2 (06:01→18:20)
[2019-02-18] MEDS: APIXABAN 5 MG TABLET PO ×2 (06:01→18:20)
[2019-02-18] MEDS: Meloxicam 7.5 MG Tablet PO (06:01)
[2019-02-18] MEDS: Menthol/Lanolin/Calamine/Znox 113 GM Tube 1 APPLIC TOPICAL ×2 (06:02→21:18)
[2019-02-18] MEDS: Nystatin Powder 15gm Bottle 1 APPLIC TOPICAL ×2 (06:02→21:17)
--- NOTE | 2019-02-18 08:08 | MDS.RN ---
Information for the mds was obtained from review of the clinical record, interview of resident, staff, and direct observation of resident's care.
[2019-02-18] MEDS: Iron Polysaccharide Complex 150 MG CAPSULE PO (08:09)
[2019-02-18 16:00] VITALS: BP 128/70; PULSE 73; RESP 18; TEMP 36.9; O2SAT 99
[2019-02-18] MEDS: 0.9% NaCl IVPB Med Flush (250 mL) 15 ML IV (21:05)
[2019-02-18] MEDS: Acetaminophen 500 MG Tablet 1000 MG PO (21:07)
[2019-02-18] MEDS: MELATONIN 10 MG TABLET PO (21:09)
[2019-02-19] MEDS: Menthol/Lanolin/Calamine/Znox 113 GM Tube 1 APPLIC TOPICAL ×2 (05:54→20:57)
[2019-02-19] MEDS: Pantoprazole Sodium 40 MG Tablet PO (05:55)
[2019-02-19] MEDS: Amiodarone 200 MG Tablet PO (05:55)
[2019-02-19] MEDS: APIXABAN 5 MG TABLET PO ×2 (05:55→16:59)
[2019-02-19] MEDS: Doxycycline 100 MG CAPSULE PO ×2 (05:55→16:59)
[2019-02-19] MEDS: Meloxicam 7.5 MG Tablet PO (05:55)
[2019-02-19] MEDS: Nystatin Powder 15gm Bottle 1 APPLIC TOPICAL ×2 (05:56→20:56)
[2019-02-19] MEDS: 0.9% NaCl PICC Flush IV ×3 (06:02→20:56)
[2019-02-19 06:30] VITALS: PULSE 80; RESP 16; O2SAT 97
[2019-02-19] MEDS: Iron Polysaccharide Complex 150 MG CAPSULE PO (07:52)
[2019-02-19 15:01] VITALS: BP 109/62; PULSE 74; RESP 20; TEMP 36.8; O2SAT 96
--- NOTE | 2019-02-19 15:26 | CHAPLAIN ---
Type of Pastoral Visit ___ Initial Visit _x__ Follow-up Visit ___ On-call Visit ___ General Patient Visit ___ Spiritual Assessment ___ Family Conference ___ Bereavement ___ Rapid Response ___ Code Blue ___ Other (describe below) Pastoral Care Referral From _x__ Patient ___ Family ___ Nurse ___ Physician ___ Waxer ___ Yard Foreman ___ Other (describe below) Sacrament/Intervention _x__ Active listening ___ Anointing ___ Yarsani ___ Bereavement ___ Communion ___ Gissell exploration ___ ___ Life review _x__ Prayer ___ Reconciliation ___ Sacrament of Sick ___ Supportive presence ___ Wedding ___ Other (describe below) Pastoral Comments
[2019-02-19] MEDS: 0.9% NaCl IVPB Med Flush (250 mL) 15 ML IV (20:56)
[2019-02-19] MEDS: Acetaminophen 500 MG Tablet 1000 MG PO (22:51)
[2019-02-19] MEDS: MELATONIN 10 MG TABLET PO (22:51)
[2019-02-20] MEDS: Meloxicam 7.5 MG Tablet PO (05:13)
[2019-02-20] MEDS: Doxycycline 100 MG CAPSULE PO ×2 (05:13→17:02)
[2019-02-20] MEDS: Pantoprazole Sodium 40 MG Tablet PO (05:13)
[2019-02-20] MEDS: 0.9% NaCl PICC Flush IV ×2 (05:13→13:45)
[2019-02-20] MEDS: Amiodarone 200 MG Tablet PO (05:13)
[2019-02-20] MEDS: APIXABAN 5 MG TABLET PO ×2 (05:13→17:02)
[2019-02-20] MEDS: Nystatin Powder 15gm Bottle 1 APPLIC TOPICAL ×2 (05:13→22:12)
[2019-02-20] MEDS: Menthol/Lanolin/Calamine/Znox 113 GM Tube 1 APPLIC TOPICAL ×2 (05:14→22:11)
[2019-02-20] MEDS: Iron Polysaccharide Complex 150 MG CAPSULE PO (08:05)
[2019-02-20 15:21] VITALS: BP 118/69; PULSE 74; RESP 20; TEMP 36.8; O2SAT 98
[2019-02-20] MEDS: Acetaminophen 500 MG Tablet 1000 MG PO (22:10)
[2019-02-20] MEDS: MELATONIN 10 MG TABLET PO (22:14)
[2019-02-21] MEDS: 0.9% NaCl PICC Flush IV ×3 (06:27→22:40)
[2019-02-21] MEDS: Meloxicam 7.5 MG Tablet PO (06:33)
[2019-02-21] MEDS: Pantoprazole Sodium 40 MG Tablet PO (06:33)
[2019-02-21] MEDS: APIXABAN 5 MG TABLET PO ×2 (06:34→16:39)
[2019-02-21] MEDS: Amiodarone 200 MG Tablet PO (06:34)
[2019-02-21] MEDS: Nystatin Powder 15gm Bottle 1 APPLIC TOPICAL ×2 (06:34→22:53)
[2019-02-21] MEDS: Menthol/Lanolin/Calamine/Znox 113 GM Tube 1 APPLIC TOPICAL ×2 (06:34→22:50)
[2019-02-21] MEDS: Doxycycline 100 MG CAPSULE PO ×2 (06:34→16:39)
[2019-02-21 06:42] LABS: Absolute Lymphocyte Count 1.32 X10^3/uL (0.83-4.51); Absolute Neutrophil Count 2.7 X10^3/uL (2.0-7.7); Basophil# 0.06 X10^3/uL; Basophil% 1.2 % (0-1); Eosinophil# 0.31 X10^3/uL; Hematocrit 32.9 % (40-54); Hemoglobin 10.9 g/dL (13.0-16.5); Lymphocyte # 1.32 X10^3/ul (4.0); Lymphocyte % 25.6 % (19-41); Mean Corp Hgb Conc 33.1 g/dL (32-36); Mean Corpuscular Hgb 32.9 pg (27.0-32.0); Mean Corpuscular Volume 99.4 fL (80-94); Mean Platelet Vol. 9.8 fl (6.2-12.0); Monocyte# 0.75 X10^3/uL; Monocyte% 14.6 % (0-10); Neutrophil # 2.69 X10^3/uL (2.7-7.7); Neutrophil % 52.2 % (47-70); Platelet Count 224 K/mm3 (150-450); RBC Distribution Width CV 13.9 % (11.6-14.6); RBC Distribution Width SD 51.2 fl (35.1-43.9); Red Blood Count 3.31 M/mm3 (4.6-6.2); White Blood Count 5.2 K/mm3 (4.4-11.0)
[2019-02-21 06:52] LABS: POSITIVE COUNT NO; POSITIVE DIFFERENTIAL NO; POSITIVE MORPHOLOGY NO
[2019-02-21 06:57] LABS: Anion Gap 4 (5-15); BUN 18 mg/dL (7-18); BUN/Creat Ratio 21.6 RATIO (10-20); Calcium,Total 9.1 mg/dL (8.5-10.1); Chloride 107 mmol/L (98-107); Creatinine, Serum 0.83 mg/dL (0.70-1.30); EST Glomerular Filtration Rate 94 mL/min (>60); Est Glom Filt Rate - Afr Amer 113 mL/min (>60); Estimated Creatinine Clearance 79.78 ml/min; Glucose 85 mg/dL (74-106); Potassium 4.6 mmol/L (3.5-5.1); Sodium Level 141 mmol/L (136-145)
[2019-02-21] MEDS: Iron Polysaccharide Complex 150 MG CAPSULE PO (07:36)
[2019-02-21] MEDS: 0.9% NaCl IVPB Med Flush (250 mL) 15 ML IV (13:56)
[2019-02-21 15:31] VITALS: BP 129/66; PULSE 74; RESP 20; TEMP 36.4; O2SAT 94
[2019-02-21] MEDS: Acetaminophen 500 MG Tablet 1000 MG PO (22:51)
[2019-02-21] MEDS: MELATONIN 10 MG TABLET PO (22:51)
[2019-02-22 00:56] VITALS: PULSE 78; RESP 18
[2019-02-22] MEDS: APIXABAN 5 MG TABLET PO ×2 (05:22→16:49)
[2019-02-22] MEDS: Doxycycline 100 MG CAPSULE PO ×2 (05:22→16:49)
[2019-02-22] MEDS: Amiodarone 200 MG Tablet PO (05:22)
[2019-02-22] MEDS: Pantoprazole Sodium 40 MG Tablet PO (05:22)
[2019-02-22] MEDS: Meloxicam 7.5 MG Tablet PO (05:22)
[2019-02-22] MEDS: Menthol/Lanolin/Calamine/Znox 113 GM Tube 1 APPLIC TOPICAL ×2 (05:24→21:13)
[2019-02-22] MEDS: Nystatin Powder 15gm Bottle 1 APPLIC TOPICAL ×2 (05:24→21:13)
[2019-02-22] MEDS: Iron Polysaccharide Complex 150 MG CAPSULE PO (07:45)
[2019-02-22] MEDS: 0.9% NaCl PICC Flush IV ×2 (14:06→21:17)
[2019-02-22] MEDS: 0.9% NaCl IVPB Med Flush (250 mL) 15 ML IV (14:06)
[2019-02-22 15:18] VITALS: BP 162/75; PULSE 71; RESP 18; TEMP 36.5; O2SAT 96
[2019-02-22 15:30] VITALS: BP 136/85; PULSE 72
[2019-02-22] MEDS: MELATONIN 10 MG TABLET PO (21:13)
[2019-02-22] MEDS: Acetaminophen 500 MG Tablet 1000 MG PO (21:16)
[2019-02-23] MEDS: Menthol/Lanolin/Calamine/Znox 113 GM Tube 1 APPLIC TOPICAL ×2 (05:27→21:16)
[2019-02-23] MEDS: Meloxicam 7.5 MG Tablet PO (05:29)
[2019-02-23] MEDS: Pantoprazole Sodium 40 MG Tablet PO (05:29)
[2019-02-23] MEDS: Amiodarone 200 MG Tablet PO (05:29)
[2019-02-23] MEDS: APIXABAN 5 MG TABLET PO ×2 (05:29→16:58)
[2019-02-23] MEDS: Doxycycline 100 MG CAPSULE PO ×2 (05:29→16:58)
[2019-02-23] MEDS: Nystatin Powder 15gm Bottle 1 APPLIC TOPICAL ×2 (05:29→21:17)
[2019-02-23] MEDS: Iron Polysaccharide Complex 150 MG CAPSULE PO (10:24)
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
--- NOTE | 2019-02-23 14:22 | NURSING ---
MEPILEX CHANGE TO PT BOTTOM ON 02/23. REPORTED TO DERICK MCGILL
[2019-02-23] MEDS: 0.9% NaCl PICC Flush IV ×2 (14:29→22:43)
[2019-02-23] MEDS: 0.9% NaCl IVPB Med Flush (250 mL) 15 ML IV (14:29)
[2019-02-23 16:00] VITALS: BP 162/83; PULSE 75; RESP 16; TEMP 36.6; O2SAT 98
[2019-02-23] MEDS: Acetaminophen 500 MG Tablet 1000 MG PO (21:14)
[2019-02-23] MEDS: MELATONIN 10 MG TABLET PO (21:16)
[2019-02-23 22:00] VITALS: PULSE 80; RESP 18; O2SAT 97
[2019-02-24] MEDS: 0.9% NaCl PICC Flush IV ×4 (05:25→21:30)
[2019-02-24] MEDS: Menthol/Lanolin/Calamine/Znox 113 GM Tube 1 APPLIC TOPICAL ×2 (05:45→21:38)
[2019-02-24] MEDS: Nystatin Powder 15gm Bottle 1 APPLIC TOPICAL ×2 (05:46→21:38)
[2019-02-24] MEDS: Meloxicam 7.5 MG Tablet PO (05:47)
[2019-02-24] MEDS: Pantoprazole Sodium 40 MG Tablet PO (05:47)
[2019-02-24] MEDS: Doxycycline 100 MG CAPSULE PO ×2 (05:47→17:07)
[2019-02-24] MEDS: Amiodarone 200 MG Tablet PO (05:47)
[2019-02-24] MEDS: APIXABAN 5 MG TABLET PO ×2 (05:47→17:07)
[2019-02-24] MEDS: Iron Polysaccharide Complex 150 MG CAPSULE PO (08:05)
[2019-02-24 10:50] VITALS: PULSE 81; RESP 18; O2SAT 97
--- NOTE | 2019-02-24 13:59 | CASEMGMT ---
Social Work Spoke with pt about discharge plans. Pt receives PWBS 02/27. Pt will discharge and not private pay whenever insurance cuts. Will continue to follow. JING MadridW
[2019-02-24 15:34] VITALS: BP 122/73; PULSE 79; RESP 18; TEMP 37.2; O2SAT 95
[2019-02-24] MEDS: 0.9% NaCl IVPB Med Flush (250 mL) 15 ML IV (21:28)
[2019-02-24] MEDS: MELATONIN 10 MG TABLET PO (21:37)
[2019-02-24] MEDS: Acetaminophen 500 MG Tablet 1000 MG PO (21:37)
[2019-02-25] MEDS: 0.9% NaCl PICC Flush IV ×3 (05:16→21:33)
[2019-02-25] MEDS: Menthol/Lanolin/Calamine/Znox 113 GM Tube 1 APPLIC TOPICAL ×2 (05:48→21:26)
[2019-02-25] MEDS: Nystatin Powder 15gm Bottle 1 APPLIC TOPICAL ×2 (05:48→21:26)
[2019-02-25] MEDS: Doxycycline 100 MG CAPSULE PO ×2 (05:48→16:49)
[2019-02-25] MEDS: Amiodarone 200 MG Tablet PO (05:48)
[2019-02-25] MEDS: APIXABAN 5 MG TABLET PO ×2 (05:49→16:49)
[2019-02-25] MEDS: Pantoprazole Sodium 40 MG Tablet PO (05:49)
[2019-02-25] MEDS: Meloxicam 7.5 MG Tablet PO (05:49)
[2019-02-25] MEDS: Iron Polysaccharide Complex 150 MG CAPSULE PO (07:53)
--- NOTE | 2019-02-25 13:20 | CASEMGMT ---
Insurance: clinical update faxed to t. auth # [id number]
--- NOTE | 2019-02-25 14:48 | CHAPLAIN ---
Type of Pastoral Visit ___ Initial Visit _x__ Follow-up Visit ___ On-call Visit ___ General Patient Visit ___ Spiritual Assessment ___ Family Conference ___ Bereavement ___ Rapid Response ___ Code Blue ___ Other (describe below) Pastoral Care Referral From _x__ Patient ___ Family ___ Nurse ___ Physician ___ Inside Sales Specialist ___ Cnc Mechanic ___ Other (describe below) Sacrament/Intervention _x__ Active listening ___ Anointing ___ Hinduism ___ Bereavement ___ Communion ___ Gissell exploration ___ _x__ Life review _x__ Prayer ___ Reconciliation ___ Sacrament of Sick ___ Supportive presence ___ Wedding ___ Other (describe below) Pastoral Comments
[2019-02-25 15:36] VITALS: BP 126/73; PULSE 77; RESP 20; TEMP 36.8; O2SAT 96
[2019-02-25] MEDS: MELATONIN 10 MG TABLET PO (21:26)
[2019-02-25] MEDS: Acetaminophen 500 MG Tablet 1000 MG PO (21:32)
[2019-02-25 23:41] VITALS: PULSE 78; RESP 18; O2SAT 98
[2019-02-26] MEDS: Nystatin Powder 15gm Bottle 1 APPLIC TOPICAL ×2 (06:36→21:22)
[2019-02-26] MEDS: APIXABAN 5 MG TABLET PO ×2 (06:37→16:45)
[2019-02-26] MEDS: Amiodarone 200 MG Tablet PO (06:37)
[2019-02-26] MEDS: Pantoprazole Sodium 40 MG Tablet PO (06:37)
[2019-02-26] MEDS: Meloxicam 7.5 MG Tablet PO (06:37)
[2019-02-26] MEDS: Doxycycline 100 MG CAPSULE PO ×2 (06:37→16:45)
[2019-02-26] MEDS: Menthol/Lanolin/Calamine/Znox 113 GM Tube 1 APPLIC TOPICAL ×2 (06:38→21:22)
[2019-02-26] MEDS: Iron Polysaccharide Complex 150 MG CAPSULE PO (07:27)
[2019-02-26 10:00] VITALS: PULSE 76; RESP 16; O2SAT 97
[2019-02-26] MEDS: 0.9% NaCl PICC Flush IV ×2 (13:31→21:17)
[2019-02-26] MEDS: 0.9% NaCl IVPB Med Flush (250 mL) 15 ML IV (13:32)
[2019-02-26 15:56] VITALS: BP 123/74; PULSE 76; RESP 18; TEMP 37; O2SAT 96
[2019-02-26] MEDS: Acetaminophen 500 MG Tablet 1000 MG PO (21:20)
[2019-02-26] MEDS: MELATONIN 10 MG TABLET PO (21:21)
[2019-02-27] MEDS: Nystatin Powder 15gm Bottle 1 APPLIC TOPICAL ×2 (06:36→21:28)
[2019-02-27] MEDS: Meloxicam 7.5 MG Tablet PO (06:36)
[2019-02-27] MEDS: Doxycycline 100 MG CAPSULE PO ×2 (06:36→17:47)
[2019-02-27] MEDS: APIXABAN 5 MG TABLET PO ×2 (06:36→17:48)
[2019-02-27] MEDS: Amiodarone 200 MG Tablet PO (06:36)
[2019-02-27] MEDS: Menthol/Lanolin/Calamine/Znox 113 GM Tube 1 APPLIC TOPICAL ×2 (06:36→21:27)
[2019-02-27] MEDS: Pantoprazole Sodium 40 MG Tablet PO (06:36)
[2019-02-27] MEDS: Iron Polysaccharide Complex 150 MG CAPSULE PO (07:24)
[2019-02-27] MEDS: 0.9% NaCl PICC Flush IV ×3 (13:51→21:25)
[2019-02-27 14:23] VITALS: BP 138/74; PULSE 80; RESP 20; TEMP 36.8; O2SAT 97
--- NOTE | 2019-02-27 16:13 | NURSING ---
ANTOINETTERN/WOUND NURSE CHANGED PT MEPILEX.
[2019-02-27] MEDS: 0.9% NaCl IVPB Med Flush (250 mL) 15 ML IV (21:20)
[2019-02-27] MEDS: Acetaminophen 500 MG Tablet 1000 MG PO (21:26)
[2019-02-27] MEDS: MELATONIN 10 MG TABLET PO (21:27)
[2019-02-27 21:30] VITALS: PULSE 80; RESP 16; O2SAT 98
[2019-02-28] MEDS: 0.9% NaCl PICC Flush IV ×2 (05:08→21:37)
[2019-02-28] MEDS: Menthol/Lanolin/Calamine/Znox 113 GM Tube 1 APPLIC TOPICAL ×2 (06:18→21:24)
[2019-02-28] MEDS: Meloxicam 7.5 MG Tablet PO (06:19)
[2019-02-28] MEDS: Pantoprazole Sodium 40 MG Tablet PO (06:19)
[2019-02-28] MEDS: Nystatin Powder 15gm Bottle 1 APPLIC TOPICAL ×2 (06:19→21:22)
[2019-02-28] MEDS: Doxycycline 100 MG CAPSULE PO ×2 (06:20→18:15)
[2019-02-28] MEDS: APIXABAN 5 MG TABLET PO ×2 (06:20→18:15)
[2019-02-28] MEDS: Amiodarone 200 MG Tablet PO (06:20)
[2019-02-28 07:00] VITALS: PULSE 80; RESP 18; O2SAT 98
[2019-02-28] MEDS: Iron Polysaccharide Complex 150 MG CAPSULE PO (09:17)
[2019-02-28 16:00] VITALS: BP 144/69; PULSE 75; RESP 16; TEMP 37; O2SAT 94
[2019-02-28] MEDS: MELATONIN 10 MG TABLET PO (21:23)
[2019-02-28] MEDS: Acetaminophen 500 MG Tablet 1000 MG PO (21:28)
[2019-02-28] MEDS: 0.9% NaCl IVPB Med Flush (250 mL) 15 ML IV (21:39)
[2019-03-01] MEDS: 0.9% NaCl PICC Flush IV ×4 (05:09→21:12)
[2019-03-01] MEDS: Menthol/Lanolin/Calamine/Znox 113 GM Tube 1 APPLIC TOPICAL ×2 (06:43→21:15)
[2019-03-01] MEDS: Amiodarone 200 MG Tablet PO (06:45)
[2019-03-01] MEDS: Nystatin Powder 15gm Bottle 1 APPLIC TOPICAL ×2 (06:45→21:15)
[2019-03-01] MEDS: Doxycycline 100 MG CAPSULE PO ×2 (06:45→17:02)
[2019-03-01] MEDS: Pantoprazole Sodium 40 MG Tablet PO (06:45)
[2019-03-01] MEDS: Meloxicam 7.5 MG Tablet PO (06:45)
[2019-03-01] MEDS: APIXABAN 5 MG TABLET PO ×2 (06:45→17:02)
[2019-03-01] MEDS: Iron Polysaccharide Complex 150 MG CAPSULE PO (07:50)
[2019-03-01 16:00] VITALS: BP 146/80; PULSE 71; RESP 17; TEMP 36.7; O2SAT 95
[2019-03-01] MEDS: 0.9% NaCl IVPB Med Flush (250 mL) 15 ML IV (21:09)
[2019-03-01] MEDS: Acetaminophen 500 MG Tablet 1000 MG PO (21:18)
[2019-03-01] MEDS: MELATONIN 10 MG TABLET PO (21:18)
[2019-03-02] MEDS: 0.9% NaCl PICC Flush IV ×4 (05:23→20:59)
[2019-03-02] MEDS: Menthol/Lanolin/Calamine/Znox 113 GM Tube 1 APPLIC TOPICAL ×2 (05:26→21:03)
[2019-03-02] MEDS: Nystatin Powder 15gm Bottle 1 APPLIC TOPICAL ×2 (05:26→21:01)
[2019-03-02] MEDS: Doxycycline 100 MG CAPSULE PO ×2 (05:26→17:15)
[2019-03-02] MEDS: APIXABAN 5 MG TABLET PO ×2 (05:26→17:15)
[2019-03-02] MEDS: Amiodarone 200 MG Tablet PO (05:27)
[2019-03-02] MEDS: Meloxicam 7.5 MG Tablet PO (05:27)
[2019-03-02] MEDS: Pantoprazole Sodium 40 MG Tablet PO (05:27)
[2019-03-02] MEDS: Iron Polysaccharide Complex 150 MG CAPSULE PO (07:50)
--- NOTE | 2019-03-02 07:54 | CASEMGMT ---
Addendum entered by Kimi Hatfield 03/02/19 11:36: Therapy is recommending home health PT/OT. PT is agreeable to this and would like services through [facility]. Plan: D/C 03/05/19 home with and home health PT/OT PHAN Ybarra Original Note: Social Work SW met with pt in room. Pt expressing that last IV ATB will be on Saturday night and he would like to discharge home on . Pt confirms that his is aware and agreeable to this plan. SW spoke with PT and HAFSA Limon stating pt has progressed well with therapy and is safe for return home on . Anticipate d/c 03/05/19. PHAN Ybarra
--- NOTE | 2019-03-02 08:45 | CASEMGMT ---
Insurance Clinical updates faxed to insurance company. Will await continued stay decision. Auth # [id number] PHAN Ybarra
[2019-03-02 10:30] VITALS: PULSE 69; RESP 18; O2SAT 92
[2019-03-02 14:57] VITALS: BP 145/80; PULSE 73; RESP 18; TEMP 36.9; O2SAT 96
--- NOTE | 2019-03-02 19:18 | DCINST_ITS ---
- Discharge Diagnoses Current Active Problems: Current Active and Chronic Problems Hip hematoma, left (Acute) Insomnia (Chronic) You will use the following diet at home:: No restrictions, Regular Your food should be the consistency of: Regular Your liquids should be the consistency of: Regular/Thin Discharge Activity: Return to Normal Activity, May Shower, Use Walker May resume sexual activity in: No Restrictions Weight Bearing Status: Weight bearing as tolerated Call your doctor if you observe: Fever of 101 or Higher, Inability to urinate, Inability to have a bowel movement, Shortness of breath, Chest pain, Uncontrolled pain Allergies/Adverse Reactions: Allergies apple Allergy (Verified 09/01/18 15:30) Rash Penicillins [PCN] Allergy (Verified 09/01/18 15:30) Rash Medications to take at Discharge Amiodarone HCl 200 mg PO DAILY 09/01/18 Melatonin 10 mg PO QHS 01/09/19 Pantoprazole Sodium [Protonix] 40 mg PO DAILY 01/09/19 Apixaban [Eliquis] 5 mg PO BID 01/23/19 Iron Polysaccharide Complex [Ferrex 150] 150 mg PO DAILYCM 01/23/19 Meloxicam 7.5 mg PO DAILY 01/23/19 Menthol/Lanolin/Calamine/Znox [Calmoseptine Ointment] 1 applic TOPICAL 0600,2200 01/23/19 Acetaminophen [Tylenol] 1,000 mg PO Q6H PRN PRN tablet 03/02/19 Menthol/Lanolin/Calamine/Znox [Calmoseptine Ointment] 1 applic TOPICAL 0600,2200 tube 03/02/19 Mineral Oil/Petrolatum,White [Eucerin] 1 applic TOPICAL 2200 jar 03/02/19 Nystatin Powder [Mycostatin Powder] 1 applic TOPICAL 0600,2200 bottle 03/02/19 Primary Care Physician: Christos Golden [Primary Care Provider] - Please follow up with your Primary Care Physician in: 1 week. Test Results: Test results from this visit will be discussed in further detail at your follow- up appointment, if applicable. Please Follow Up With: Russell Westbrook When: 2 weeks Proposed Discharge Date: 03/05/19
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
[2019-03-02] MEDS: Acetaminophen 500 MG Tablet 1000 MG PO (21:01)
[2019-03-02] MEDS: MELATONIN 10 MG TABLET PO (21:05)
[2019-03-03] MEDS: Meloxicam 7.5 MG Tablet PO (05:34)
[2019-03-03] MEDS: Pantoprazole Sodium 40 MG Tablet PO (05:34)
[2019-03-03] MEDS: Doxycycline 100 MG CAPSULE PO ×2 (05:34→17:20)
[2019-03-03] MEDS: Menthol/Lanolin/Calamine/Znox 113 GM Tube 1 APPLIC TOPICAL ×2 (05:34→21:22)
[2019-03-03] MEDS: 0.9% NaCl PICC Flush IV ×3 (05:35→21:22)
[2019-03-03] MEDS: APIXABAN 5 MG TABLET PO ×2 (05:35→17:20)
[2019-03-03] MEDS: Amiodarone 200 MG Tablet PO (05:35)
[2019-03-03] MEDS: Nystatin Powder 15gm Bottle 1 APPLIC TOPICAL ×2 (05:38→21:21)
[2019-03-03] MEDS: Iron Polysaccharide Complex 150 MG CAPSULE PO (07:37)
--- NOTE | 2019-03-03 10:27 | MDS.RN ---
Information for the mds was obtained from review of the clinical record, interview of resident, staff, and direct observation of resident's care.
--- NOTE | 2019-03-03 13:06 | CASEMGMT ---
Social Work Referral made to [facility] home health and they are able to accept pt. Referral faxed and they will contact pt with start of service. SW spoke with pt and she is agreeable to d/c home on 03/05/19 with home health care. No further SW needs. Plan: D/C home 03/05 with [facility] PT/OT PHAN Ybarra
[2019-03-03 14:04] VITALS: BP 141/78; PULSE 86; RESP 16; TEMP 36.4; O2SAT 94
[2019-03-03] MEDS: Acetaminophen 500 MG Tablet 1000 MG PO (21:19)
[2019-03-03] MEDS: MELATONIN 10 MG TABLET PO (21:20)
[2019-03-03 21:25] VITALS: PULSE 72; RESP 18; O2SAT 95
[2019-03-03] MEDS: 0.9% NaCl IVPB Med Flush (250 mL) 240 ML IV (21:39)
[2019-03-04] MEDS: Nystatin Powder 15gm Bottle 1 APPLIC TOPICAL ×2 (05:26→21:44)
[2019-03-04] MEDS: Menthol/Lanolin/Calamine/Znox 113 GM Tube 1 APPLIC TOPICAL ×2 (05:26→21:44)
[2019-03-04] MEDS: Meloxicam 7.5 MG Tablet PO (05:31)
[2019-03-04] MEDS: Amiodarone 200 MG Tablet PO (05:31)
[2019-03-04] MEDS: Doxycycline 100 MG CAPSULE PO ×2 (05:31→17:12)
[2019-03-04] MEDS: Pantoprazole Sodium 40 MG Tablet PO (05:31)
[2019-03-04] MEDS: 0.9% NaCl PICC Flush IV ×3 (05:32→23:05)
[2019-03-04] MEDS: APIXABAN 5 MG TABLET PO ×2 (05:32→17:12)
[2019-03-04] MEDS: Iron Polysaccharide Complex 150 MG CAPSULE PO (08:18)
[2019-03-04 10:00] VITALS: PULSE 74; RESP 18; O2SAT 97
[2019-03-04 14:58] VITALS: BP 131/53; PULSE 69; RESP 18; TEMP 37; O2SAT 96
[2019-03-04] MEDS: Acetaminophen 500 MG Tablet 1000 MG PO (21:44)
[2019-03-04] MEDS: 0.9% NaCl IVPB Med Flush (250 mL) 240 ML IV (21:45)
[2019-03-04] MEDS: MELATONIN 10 MG TABLET PO (21:46)
--- NOTE | 2019-03-05 04:25 | NURSING ---
PICC line to LUE removed at this time per order. 49cm with tip intact. White petroleum jelly with [id number] applied over insertion site. Pt tolerated well. Instructed to lie flat for 1 hour per policy. Pt in agreement. Call light in reach.
[2019-03-05] MEDS: Doxycycline 100 MG CAPSULE PO (05:44)
[2019-03-05] MEDS: Amiodarone 200 MG Tablet PO (05:44)
[2019-03-05] MEDS: APIXABAN 5 MG TABLET PO (05:44)
[2019-03-05] MEDS: Pantoprazole Sodium 40 MG Tablet PO (05:44)
[2019-03-05] MEDS: Meloxicam 7.5 MG Tablet PO (05:44)
[2019-03-05] MEDS: Menthol/Lanolin/Calamine/Znox 113 GM Tube 1 APPLIC TOPICAL (05:44)
[2019-03-05] MEDS: Nystatin Powder 15gm Bottle 1 APPLIC TOPICAL (05:45)
[2019-03-05 06:30] VITALS: PULSE 78; RESP 16; O2SAT 97
[2019-03-05] MEDS: Iron Polysaccharide Complex 150 MG CAPSULE PO (07:56)
[2019-03-05 09:38] VITALS: BP 124/75; PULSE 80; RESP 16; TEMP 36.8; O2SAT 95
== END 2019-03-05 10:45 | disposition home health service (06) | DRG 920 ==
PROVIDERS: Admitting Provider Family Medicine Geriatric Medicine; Family Provider Internal Medicine; PCP Internal Medicine; Visit Provider Family Medicine Geriatric Medicine
DX: M96.840 Postprocedural hematoma of a musculoskeletal structure following a musculoskeletal system procedure (principal); M00.052 Staphylococcal arthritis, left hip; D50.9 Iron deficiency anemia, unspecified; M97.02XS Periprosthetic fracture around internal prosthetic left hip joint, sequela; K21.9 Gastro-esophageal reflux disease without esophagitis; B35.4 Tinea corporis; I10 Essential (primary) hypertension; I48.0 Paroxysmal atrial fibrillation; Y83.8 Other surgical procedures as the cause of abnormal reaction of the patient, or of later complication, without mention of misadventure at the time of the procedure; Y79.3 Surgical instruments, materials and orthopedic devices (including sutures) associated with adverse incidents; Z86.718 Personal history of other venous thrombosis and embolism; T84.52XS Infection and inflammatory reaction due to internal left hip prosthesis, sequela; B95.7 Other staphylococcus as the cause of diseases classified elsewhere
CPT/HCPCS: 80048; 85025; 97110; 97116; 97162; 97166; 97530; 97535; 97802; J2185; J2997; J7050; A4216

== ENCOUNTER 2019-05-01 18:47 | Inpatient (IN) | payer MEDICARE, SELFPAY ==
[2019-01-23 21:13] VITALS: BMI 29.2
[2019-05-01 19:48] VITALS: BP 124/59; PULSE 88; RESP 18; O2SAT 96; BMI 30.1
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
[2019-05-01 21:38] VITALS: TEMP 37.6
[2019-05-01] MEDS: 0.9% Saline Lock 10 ML Syringe IV (22:45)
[2019-05-02] MEDS: 0.9% Saline Lock 10 ML Syringe IV ×3 (05:58→21:32)
[2019-05-02 06:16] LABS: Absolute Lymphocyte Count 1.52 X10^3/uL (0.83-4.51); Absolute Neutrophil Count 3.8 X10^3/uL (2.0-7.7); Basophil# 0.05 X10^3/uL; Basophil% 0.8 % (0-1); Eosinophil# 0.35 X10^3/uL; Eosinophils% 5.4 % (0-5); Hematocrit 24.9 % (40-54); Hemoglobin 8.1 g/dL (13.0-16.5); Lymphocyte # 1.52 X10^3/ul (4.0); Lymphocyte % 23.2 % (19-41); Mean Corp Hgb Conc 32.5 g/dL (32-36); Mean Corpuscular Hgb 31.8 pg (27.0-32.0); Mean Corpuscular Volume 97.6 fL (80-94); Monocyte% 12.2 % (0-10); NRBC Flagged by Analyzer 0 % (0-5); Neutrophil # 3.75 X10^3/uL (2.7-7.7); Neutrophil % 57.3 % (47-70); Platelet Count 255 K/mm3 (150-450); RBC Distribution Width CV 14.8 % (11.6-14.6); RBC Distribution Width SD 52.8 fl (35.1-43.9); Red Blood Count 2.55 M/mm3 (4.6-6.2); White Blood Count 6.5 K/mm3 (4.4-11.0)
[2019-05-02] MEDS: Pantoprazole Sodium 20 MG Tablet PO (06:16)
[2019-05-02] MEDS: cycloBENZAPRine HCl 10 MG Tablet PO (06:16)
[2019-05-02] MEDS: Amiodarone 200 MG Tablet PO (06:16)
[2019-05-02] MEDS: Meloxicam 7.5 MG Tablet PO (06:16)
[2019-05-02] MEDS: Acetaminophen 325 MG Tablet 650 MG PO (06:16)
[2019-05-02 06:26] LABS: Erythrocyte Sedimentation Rate 29 mm/hr (0-20)
[2019-05-02 06:29] LABS: Anion Gap 5 (5-15); BUN 23 mg/dL (7-18); BUN/Creat Ratio 33.8 RATIO (10-20); Calcium,Total 8.6 mg/dL (8.5-10.1); Chloride 109 mmol/L (98-107); Creatinine, Serum 0.68 mg/dL (0.70-1.30); EST Glomerular Filtration Rate 118 mL/min (>60); Est Glom Filt Rate - Afr Amer 143 mL/min (>60); Estimated Creatinine Clearance 66.22 ml/min; Glucose 98 mg/dL (74-106); Potassium 3.9 mmol/L (3.5-5.1); Sodium Level 142 mmol/L (136-145)
[2019-05-02] MEDS: Tuberculin,Purif.prot.deriv. 50 TU/ML Vial 5 ML ID (10:15)
--- NOTE | 2019-05-02 11:40 | NURSING ---
Dr Henriquez notified of pt LT hip with some bleeding, new order to hold eliquis until saturday. 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 Pt resting in bed, call light in reach.
[2019-05-02 15:20] VITALS: BP 139/68; PULSE 78; RESP 18; TEMP 36.4; O2SAT 99
[2019-05-03] MEDS: Amiodarone 200 MG Tablet PO (05:40)
[2019-05-03] MEDS: Meloxicam 7.5 MG Tablet PO (05:40)
[2019-05-03] MEDS: Pantoprazole Sodium 20 MG Tablet PO (05:40)
[2019-05-03] MEDS: 0.9% Saline Lock 10 ML Syringe IV ×3 (05:44→20:59)
[2019-05-03] MEDS: Iron Polysaccharide Complex 150 MG CAPSULE PO (08:21)
[2019-05-03] MEDS: Acetaminophen 325 MG Tablet 650 MG PO (08:22)
[2019-05-03 13:38] VITALS: PULSE 80; RESP 18; O2SAT 98
[2019-05-03 15:13] VITALS: BP 142/70; PULSE 82; RESP 21; TEMP 37; O2SAT 97
[2019-05-04] MEDS: Meloxicam 7.5 MG Tablet PO (05:25)
[2019-05-04] MEDS: Amiodarone 200 MG Tablet PO (05:25)
[2019-05-04] MEDS: 0.9% Saline Lock 10 ML Syringe IV ×3 (05:25→20:53)
[2019-05-04] MEDS: APIXABAN 5 MG TABLET PO (05:25)
[2019-05-04] MEDS: Pantoprazole Sodium 20 MG Tablet PO (05:25)
[2019-05-04] MEDS: Iron Polysaccharide Complex 150 MG CAPSULE PO (08:52)
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
--- NOTE | 2019-05-04 14:42 | PCM.PN.RX ---
<LiangadamKindra - Last Filed: 05/04/19 14:42> Progress Note - Pharmacy Subjective: TCU Admission Objective: Allergies apple Allergy (Verified 09/01/18 15:30) Rash Penicillins [PCN] Allergy (Verified 09/01/18 15:30) Rash Current Medications Generic Name Dose Route Start Last Admin Trade Name Freq PRN Reason Stop Dose Admin Acetaminophen 650 mg 05/01/19 20:11 05/03/19 08:22 Tylenol PO 650 mg Q4H PRN PRN Administration Pain Score 1-3/10 Amiodarone HCl 200 mg 05/02/19 06:00 05/04/19 05:25 Cordarone PO 200 mg DAILY BETH Administration Apixaban 5 mg 05/02/19 06:00 05/04/19 05:25 Eliquis PO 5 mg BID BETH Administration Bisacodyl 10 mg 05/01/19 20:56 Dulcolax PO DAILY PRN Constipation Cyclobenzaprine HCl 10 mg 05/01/19 20:11 05/02/19 06:16 Flexeril PO 10 mg TID PRN PRN Administration MUSCLE SPASM Heparin Sodium (Beef Lung) 50 units 05/01/19 20:24 IV UD PRN PICC Line Heparin Flush Meropenem 1 gm/ Sodium 120 mls @ 33 mls/hr 05/01/19 22:00 05/04/19 14:20 Chloride IV 06/04/19 22:01 33 mls/hr Q8 BETH Administration Sodium Chloride 250 mls @ 15 mls/hr 05/01/19 20:24 05/04/19 01:34 IV 0 mls/hr .[id number] PRN Infusion Saline Flush Meloxicam 7.5 mg 05/02/19 06:00 05/04/19 05:25 Mobic PO 7.5 mg DAILY BETH Administration Multi-Ingredient Cream 1 applic 05/03/19 22:00 05/03/19 19:50 Eucerin TOPICAL 1 applicatio QHS BETH Administration Protocol Nutritional Formula (Lactose Free) 120 ml 05/02/19 06:00 05/04/19 11:41 Ensure Enlive PO 120 ml 4X/DAY BETH Administration Nystatin 1 applic 05/04/19 22:00 Mycostatin Powder TOPICAL 0600,2200 [facility] Protocol Oxycodone HCl 5 mg 05/01/19 20:56 Oxyir PO Q4H PRN PRN Pain Score 6-10/10 Pantoprazole Sodium 20 mg 05/02/19 06:00 05/04/19 05:25 Protonix PO 20 mg DAILY BETH Administration Polyethylene Glycol 17 gm 05/02/19 06:00 05/04/19 05:39 Miralax PO Not Given DAILY BETH Polysaccharide Iron Complex 150 mg 05/02/19 08:00 05/04/19 08:52 Ferrex 150 PO 150 mg DAILYCM BETH Administration Senna/Docusate Sodium 2 tablet 05/02/19 06:00 05/04/19 05:39 Senokot-S, Herminia-Colace PO Not Given BID BETH Sodium Chloride 10 - 40 ml 05/01/19 20:24 05/04/19 14:20 IV 20 ml UD PRN Administration Open End PICC Flush Sodium Chloride 10 - 40 ml 05/01/19 20:24 0.9% Nacl (Sterile) Posiflush IV UD PRN Port access or dressing change Tramadol HCl 50 mg 05/01/19 20:13 Ultram PO Q4H PRN PRN Pain Score 4-5/10 Problem List Iron deficiency anemia (Chronic) 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) Vital Signs Temp Pulse Resp BP Pulse Ox 98.6 F 82 21 H 142/70 H 97 05/03/19 15:13 05/03/19 15:13 05/03/19 15:13 05/03/19 15:13 05/03/19 15:13 Oxygen Delivery Method Room Air Weight: 106.169 kg Body Mass Index (BMI) 30.0 Sodium 142 mmol/L (136-145) 05/02/19 06:05 Potassium 3.9 mmol/L (3.5-5.1) 05/02/19 06:05 Chloride 109 mmol/L (98-107) H 05/02/19 06:05 Carbon Dioxide 28.0 mmol/L (21.0-32.0) 05/02/19 06:05 Anion Gap 5 (5-15) 05/02/19 06:05 BUN 23 mg/dL (7-18) H 05/02/19 06:05 Creatinine 0.68 mg/dL (0.70-1.30) L 05/02/19 06:05 Est GFR (MDRD) Af Amer 143 mL/min (>60) 05/02/19 06:05 Est GFR (MDRD) Non-Af 118 mL/min (>60) 05/02/19 06:05 BUN/Creatinine Ratio 33.8 RATIO (10-20) H 05/02/19 06:05 Glucose 98 mg/dL (74-106) 05/02/19 06:05 Assessment/Plan: 1. Pain: acetaminophen 650mg PO Q4H PRN pain (1-310), tramadol 50mg PO Q4H PRN pain (4-5/10), oxycodone 5mg PO Q4H PRN pain (6-04/23). Please continue to monitor for increased pain. 2. 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 Please continue to monitor WBC, temperature and renal function. 3. Atrial fibrillation: amiodarone 200mg PO daily and apixaban 5mg PO BID. Please continue to monitor QTc, electrolytes, S/S of bleeding, platelets and renal function. *4. Muscle spasms: cyclobenzaprine 10mg PO TID PRN muscle spasm. Please continue to monitor for muscle spasms and anticholinergic symptoms. Patient has only had 1 dose so far. Please consider decreased dose of 5mg PO TID PRN if his needs are minimal as this medication is on the BEERS list. 5. Osteoarthritis: meloxicam 7.5mg PO daily. Please continue to monitor for increased pain and renal function. 6. GERD: pantoprazole 20mg PO daily. Please continue to monitor for S/S of GERD. 7. Iron deficiency anemia: Ferrex 150mg PO DAILYCM. Please continue to monitor for dark stools and low hemoglobin. Psychotropic Medications: None Unnecessary Medications: None *Bowel Regimen: Miralax 17gm PO daily, senna/docusate 2T PO BID, bisacodyl 10mg PO daily PRN constipation. Patient has refused 3/3 doses of Miralax and 5/5 doses of senna/docusate. Please consider changing to PRN. Thanks. Date of Note:: 05/04/19 - Provider Comments Provider responsibility: Provider responsible to enter orders to implement recommendations <Hank Henriquez Chi - Last Filed: 05/04/19 18:20> Progress Note - Pharmacy Subjective: [] Objective: Allergies apple Allergy (Verified 09/01/18 15:30) Rash Penicillins [PCN] Allergy (Verified 09/01/18 15:30) Rash Current Medications Generic Name Dose Route Start Last Admin Trade Name Freq PRN Reason Stop Dose Admin Acetaminophen 650 mg 05/01/19 20:11 05/03/19 08:22 Tylenol PO 650 mg Q4H PRN PRN Administration Pain Score 1-3/10 Amiodarone HCl 200 mg 05/02/19 06:00 05/04/19 05:25 Cordarone PO 200 mg DAILY BETH Administration Apixaban 5 mg 05/02/19 06:00 05/04/19 18:05 Eliquis PO Not Given BID BETH Bisacodyl 10 mg 05/01/19 20:56 Dulcolax PO DAILY PRN Constipation Cyclobenzaprine HCl 10 mg 05/01/19 20:11 05/02/19 06:16 Flexeril PO 10 mg TID PRN PRN Administration MUSCLE SPASM Heparin Sodium (Beef Lung) 50 units 05/01/19 20:24 IV UD PRN PICC Line Heparin Flush Meropenem 1 gm/ Sodium 120 mls @ 33 mls/hr 05/01/19 22:00 05/04/19 14:20 Chloride IV 06/04/19 22:01 33 mls/hr Q8 BETH Administration Sodium Chloride 250 mls @ 15 mls/hr 05/01/19 20:24 05/04/19 01:34 IV 0 mls/hr .[id number] PRN Infusion Saline Flush Meloxicam 7.5 mg 05/02/19 06:00 05/04/19 05:25 Mobic PO 7.5 mg DAILY BETH Administration Multi-Ingredient Cream 1 applic 05/03/19 22:00 05/03/19 19:50 Eucerin TOPICAL 1 applicatio QHS BETH Administration Protocol Nutritional Formula (Lactose Free) 120 ml 05/02/19 06:00 05/04/19 18:05 Ensure Enlive PO 120 ml 4X/DAY BETH Administration Nystatin 1 applic 05/04/19 22:00 Mycostatin Powder TOPICAL 0600,2200 [facility] Protocol Oxycodone HCl 5 mg 05/01/19 20:56 Oxyir PO Q4H PRN PRN Pain Score 6-10/10 Pantoprazole Sodium 20 mg 05/02/19 06:00 05/04/19 05:25 Protonix PO 20 mg DAILY BETH Administration Polyethylene Glycol 17 gm 05/02/19 06:00 05/04/19 05:39 Miralax PO Not Given DAILY BETH Polysaccharide Iron Complex 150 mg 05/02/19 08:00 05/04/19 08:52 Ferrex 150 PO 150 mg DAILYCM BETH Administration Senna/Docusate Sodium 2 tablet 05/02/19 06:00 05/04/19 18:03 Senokot-S, Herminia-Colace PO Not Given BID BETH Sodium Chloride 10 - 40 ml 05/01/19 20:24 05/04/19 14:20 IV 20 ml UD PRN Administration Open End PICC Flush Sodium Chloride 10 - 40 ml 05/01/19 20:24 0.9% Nacl (Sterile) Posiflush IV UD PRN Port access or dressing change Tramadol HCl 50 mg 05/01/19 20:13 Ultram PO Q4H PRN PRN Pain Score 4-5/10 Problem List Iron deficiency anemia (Chronic) 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) Vital Signs Temp Pulse Resp BP Pulse Ox 97.9 F 84 20 H 120/57 L 98 05/04/19 15:35 05/04/19 15:35 05/04/19 15:35 05/04/19 15:35 05/04/19 15:35 Oxygen Delivery Method Room Air Weight: 106.169 kg Body Mass Index (BMI) 30.0 Sodium 142 mmol/L (136-145) 05/02/19 06:05 Potassium 3.9 mmol/L (3.5-5.1) 05/02/19 06:05 Chloride 109 mmol/L (98-107) H 05/02/19 06:05 Carbon Dioxide 28.0 mmol/L (21.0-32.0) 05/02/19 06:05 Anion Gap 5 (5-15) 05/02/19 06:05 BUN 23 mg/dL (7-18) H 05/02/19 06:05 Creatinine 0.68 mg/dL (0.70-1.30) L 05/02/19 06:05 Est GFR (MDRD) Af Amer 143 mL/min (>60) 05/02/19 06:05 Est GFR (MDRD) Non-Af 118 mL/min (>60) 05/02/19 06:05 BUN/Creatinine Ratio 33.8 RATIO (10-20) H 05/02/19 06:05 Glucose 98 mg/dL (74-106) 05/02/19 06:05 Assessment/Plan: Psychotropic Medications: Unnecessary Medications: Bowel Regimen: - Provider Comments Provider responsibility: Provider responsible to enter orders to implement recommendations Provider Comments to Recommendations by Pharmacy: Agree
[2019-05-04 15:35] VITALS: BP 120/57; PULSE 84; RESP 20; TEMP 36.6; O2SAT 98
--- NOTE | 2019-05-04 17:17 | CHAPLAIN ---
Type of Pastoral Visit _x__ Initial Visit ___ Follow-up Visit ___ On-call Visit ___ General Patient Visit ___ Spiritual Assessment ___ Family Conference ___ Bereavement ___ Rapid Response ___ Code Blue ___ Other (describe below) Pastoral Care Referral From _x__ Patient ___ Family ___ Nurse ___ Physician ___ Pbx Manager ___ Cyanide Case Hardener ___ Other (describe below) Sacrament/Intervention _x__ Active listening ___ Anointing ___ Jehovah'S Witness ___ Bereavement ___ Communion _x__ Gissell exploration ___ _x__ Life review _x__ Prayer ___ Reconciliation ___ Sacrament of Sick _x__ Supportive presence ___ Wedding ___ Other (describe below) Pastoral Comments
[2019-05-04] MEDS: Nystatin Powder 15gm Bottle 1 APPLIC TOPICAL (20:53)
[2019-05-04] MEDS: Acetaminophen 325 MG Tablet 650 MG PO (20:56)
--- NOTE | 2019-05-04 21:30 | NURSING ---
left hip dressing at the bottom of dressing with serisangious saturated. incision with alyssa dry well approximated. new dressing sterile applied.
[2019-05-05] MEDS: 0.9% Saline Lock 10 ML Syringe IV ×2 (05:39→21:16)
--- NOTE | 2019-05-05 05:45 | NURSING ---
left hip dressing saturated with serisangous drainage. oozing out of incision.. dressing changed with 4 x4 and abd . pt tolerated it well
[2019-05-05] MEDS: Pantoprazole Sodium 20 MG Tablet PO (05:48)
[2019-05-05] MEDS: Amiodarone 200 MG Tablet PO (05:49)
[2019-05-05] MEDS: Meloxicam 7.5 MG Tablet PO (05:49)
[2019-05-05] MEDS: Nystatin Powder 15gm Bottle 1 APPLIC TOPICAL ×2 (05:52→21:27)
--- NOTE | 2019-05-05 06:52 | NURSING ---
Was consulted on patient for increased drainage from the left hip incision. Called and talked with nursing. The surgeon will need to know about the drainage and if the patient needs to be seen. can place a wound VAC if alright with the surgeon, but the order will need obtained from the surgeon prior to that. nursing aware of this and will call the surgeon this am.
[2019-05-05] MEDS: Iron Polysaccharide Complex 150 MG CAPSULE PO (08:49)
--- NOTE | 2019-05-05 09:12 | NURSING ---
PT BM CAME OUT CLEAR,SLIMY AND THICK LIKE MUCUS,PT ASKED FOR SAM WRAPS INSTEAD OF TEDS. THIS NURSE ALSO CHANGED PT DRESSINGS TO LEFT HIP. DERICK BELL AWARE.
--- NOTE | 2019-05-05 13:00 | NURSING ---
Was asked to see patient for large amounts of drainage from the left hip incision. pt is known to this nurse and has had numerous issues with drainage with previous surgeries as well. pt states that he had a wound VAC over the incision up until he left [place] prior to coming to TCU. dressing is currently dry, but patient states that the dressings were changed approx 2 hours ago. nursing to call the surgeon to see if they would like a wound VAC placed. pt did state though that he has a follow up appt with the surgeon on 05/07/19. the surgeon will not be able to assess the incision if a wound VAC is in place, so may need to wait until after the follow up appt. may just be a seroma and once the fluid is drained, it may be ok. Would just recommend changing the dressing as needed for drainage. Pt aware to let nursing know as well if dressing feels wet. will monitor.
[2019-05-05 15:04] VITALS: BP 118/57; PULSE 78; RESP 20; TEMP 36.8; O2SAT 97
[2019-05-06] MEDS: Meloxicam 7.5 MG Tablet PO (05:00)
[2019-05-06] MEDS: Pantoprazole Sodium 20 MG Tablet PO (05:00)
[2019-05-06] MEDS: 0.9% Saline Lock 10 ML Syringe IV ×6 (05:01→20:56)
[2019-05-06] MEDS: Amiodarone 200 MG Tablet PO (05:01)
[2019-05-06] MEDS: Nystatin Powder 15gm Bottle 1 APPLIC TOPICAL ×2 (05:03→21:35)
[2019-05-06] MEDS: Iron Polysaccharide Complex 150 MG CAPSULE PO (08:39)
[2019-05-06] MEDS: Acetaminophen 325 MG Tablet 650 MG PO ×2 (11:38→21:05)
--- NOTE | 2019-05-06 13:14 | CASEMGMT ---
Social Work IDT met with patient and for care plan meeting. Discussed patient's progress in therapy. Patient is min to mod assist x1-2 for transfers, mod x2 for toileting, LE dressing total assist, LE bathing max, UE dressing min. Pt has IV ATBs until 05/26. Explained insurance - NRD 05/07 and continued stay is not guaranteed. Will continue to follow. Sherrie Curtis, DEPOSIT REFUND CLERK SUPERVISING ARCHITECT
[2019-05-06 13:52] VITALS: PULSE 78; RESP 18; O2SAT 98
[2019-05-06 16:00] VITALS: BP 117/74; PULSE 78; RESP 18; TEMP 36.8; O2SAT 98
--- NOTE | 2019-05-06 16:23 | NURSING ---
pt upset/agitated, stated I have been hooked up to this god damn thing all day and I want it changed, nothing against you but I can't stand this. Dr Bonilla notified and ok as long as ok with pharmacy to adjust infusion rate of Merrem. Pt updated. Pharmacy able to adjust infusion rate.
[2019-05-07] MEDS: Meloxicam 7.5 MG Tablet PO (04:27)
[2019-05-07] MEDS: Amiodarone 200 MG Tablet PO (04:27)
[2019-05-07] MEDS: Pantoprazole Sodium 20 MG Tablet PO (04:27)
[2019-05-07] MEDS: 0.9% Saline Lock 10 ML Syringe IV ×4 (04:27→23:53)
[2019-05-07] MEDS: Nystatin Powder 15gm Bottle 1 APPLIC TOPICAL ×2 (04:28→19:40)
[2019-05-07] MEDS: Iron Polysaccharide Complex 150 MG CAPSULE PO (08:30)
[2019-05-07] MEDS: Acetaminophen 325 MG Tablet 650 MG PO ×2 (08:30→19:39)
--- NOTE | 2019-05-07 10:00 | NURSING ---
pt off unit to appt with surgeon dr way at this time
--- NOTE | 2019-05-07 10:24 | CASEMGMT ---
INSURANCE Clinical update faxed. Will await continued stay determination. Auth#[id number] PHAN Ybarra
--- NOTE | 2019-05-07 10:45 | PN.ID_ITS ---
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 No fever, no n/v/d. Hip less sore. - Physical Exam Vitals/I&O's: Vital Signs Temp Pulse Resp BP Pulse Ox 98.3 F 78 18 117/74 98 05/06/19 16:00 05/06/19 16:00 05/06/19 16:00 05/06/19 16:00 05/06/19 16:00 Oxygen Delivery Method Room Air Weight: 106.708 kg Body Mass Index (BMI) 30.0 Intake and Output for Last 24 Hours 05/05/19 05/06/19 05/07/19 23:59 23:59 23:59 Intake Total 1751 / 1751 1910.84 / 1910.84 473.33 / 473.33 Output Total 200 / 200 Balance 1551 / 1551 1910.84 / 1910.84 473.33 / 473.33 General: Alert, Cooperative, No apparent distress Lungs: Clear to auscultation, Normal air movement Cardiovascular: Regular rate, Regular Rhythm Abdomen: Soft, Non Tender, Non-Distended Skin: No rashes Current Medications Acetaminophen (Tylenol) 650 mg PO Q4H PRN PRN PRN Reason: Pain Score 1-3/10 Last Admin: 05/07/19 08:30 Dose: 650 mg Documented by: Amiodarone HCl (Cordarone) 200 mg PO DAILY [facility] Last Admin: 05/07/19 04:27 Dose: 200 mg Documented by: Bisacodyl (Dulcolax) 10 mg PO DAILY PRN PRN Reason: Constipation Cyclobenzaprine HCl (Flexeril) 10 mg PO TID PRN PRN PRN Reason: MUSCLE SPASM Last Admin: 05/02/19 06:16 Dose: 10 mg Documented by: Heparin Sodium (Beef Lung) () 50 units IV UD PRN PRN Reason: PICC Line Heparin Flush Last Admin: 05/06/19 17:00 Dose: 50 units Documented by: Meropenem 1 gm/ Sodium (Chloride) 120 mls @ 240 mls/hr IV Q8 [facility] Stop: 06/04/19 22:01 Last Infusion: 05/07/19 07:16 Dose: Infused Documented by: Sodium Chloride () 250 mls @ 15 mls/hr IV .[id number] PRN PRN Reason: Saline Flush Last Infusion: 05/07/19 07:24 Dose: 0 mls/hr Documented by: Meloxicam (Mobic) 7.5 mg PO DAILY [facility] Last Admin: 05/07/19 04:27 Dose: 7.5 mg Documented by: Multi-Ingredient Cream (Eucerin) 1 applic TOPICAL QHS [facility]; Protocol Last Admin: 05/06/19 20:58 Dose: 1 applicatio Documented by: Nutritional Formula (Lactose Free) (Ensure Enlive) 120 ml PO 4X/DAY [facility] Last Admin: 05/07/19 04:27 Dose: 120 ml Documented by: Nystatin (Mycostatin Powder) 1 applic TOPICAL 0600,2200 [facility]; Protocol Last Admin: 05/07/19 04:28 Dose: 1 applicatio Documented by: Oxycodone HCl (Oxyir) 5 mg PO Q4H PRN PRN PRN Reason: Pain Score 6-10/10 Pantoprazole Sodium (Protonix) 20 mg PO DAILY [facility] Last Admin: 05/07/19 04:27 Dose: 20 mg Documented by: Polyethylene Glycol (Miralax) 17 gm PO DAILY [facility] Last Admin: 05/07/19 04:28 Dose: Not Given Documented by: Polysaccharide [facility] ([facility]rex 150) [facility] Last Admin: 05/07/19 08:30 Dose: 150 mg Documented by: Senna/Docusate Sodium (Senokot-S, Herminia-Colace) 2 tablet PO BID [facility] Last Admin: 05/07/19 04:28 Dose: Not Given Documented by: Sodium Chloride () 10 - 40 ml IV UD PRN PRN Reason: Open End PICC Flush Last Admin: 05/07/19 04:27 Dose: 40 ml Documented by: Sodium Chloride (0.9% Nacl (Sterile) Posiflush) 10 - 40 ml IV UD PRN PRN Reason: Port access or dressing change Tramadol HCl (Ultram) 50 mg PO Q4H PRN PRN PRN Reason: Pain Score 4-5/10 Medical Necessity - Tobacco Use Smoking Status: Never smoker Tobacco Use: Non-smoker Route of nutrition/ use of supplements: [] Nutritional Intake: [] IV Site: [] Powell Catheter: [] - Assessment/Plan Antibiotics: [] Assessment/Plan: [] L hip PJI - s/p megaspacer placement 04/24/[address] Westbrook at [place]. Prior cxs with MRSE and PsA. On meropenem, stop date 06/04/19. Changed to shorter infusion time. Will follow
--- NOTE | 2019-05-07 13:22 | NURSING ---
pt returned from appt with orders to apply wound vac to incision at 125mmhg, change MWF. Rosita, wound nurse updated.
--- NOTE | 2019-05-07 15:07 | NURSING ---
wound photo: left hip
[2019-05-07 15:35] VITALS: BP 135/63; PULSE 78; RESP 18; TEMP 36.7; O2SAT 95
[2019-05-07] MEDS: Alteplase 2 MG/2 ML Vial IV ×2 (21:55→22:13)
[2019-05-07] MEDS: traMADol 50 MG Tablet PO (22:24)
[2019-05-08] MEDS: 0.9% Saline Lock 10 ML Syringe IV ×4 (05:18→22:11)
[2019-05-08] MEDS: Pantoprazole Sodium 20 MG Tablet PO (05:19)
[2019-05-08] MEDS: Meloxicam 7.5 MG Tablet PO (05:19)
[2019-05-08] MEDS: Amiodarone 200 MG Tablet PO (05:19)
[2019-05-08] MEDS: Polyethylene Glycol 3350 17 GM PACKET PO (05:20)
[2019-05-08] MEDS: Senna/Docusate Sodium 1 Tablet 2 TABLET PO (05:20)
[2019-05-08] MEDS: Nystatin Powder 15gm Bottle 1 APPLIC TOPICAL ×2 (05:30→22:11)
--- NOTE | 2019-05-08 08:31 | MDS.RN ---
Pain interview for maykel 05/10/19 completed.
[2019-05-08] MEDS: Iron Polysaccharide Complex 150 MG CAPSULE PO (08:41)
--- NOTE | 2019-05-08 11:17 | NURSING ---
small amount of bloody drainage noted in the VAC canister. dressing intact to the left hip.
[2019-05-08] MEDS: Acetaminophen 325 MG Tablet 650 MG PO (14:45)
[2019-05-08 15:25] VITALS: BP 162/60; PULSE 73; RESP 17; TEMP 36.8; O2SAT 96
[2019-05-09] MEDS: Meloxicam 7.5 MG Tablet PO (05:30)
[2019-05-09] MEDS: Amiodarone 200 MG Tablet PO (05:30)
[2019-05-09] MEDS: Pantoprazole Sodium 20 MG Tablet PO (05:30)
[2019-05-09] MEDS: Nystatin Powder 15gm Bottle 1 APPLIC TOPICAL ×2 (05:31→22:17)
[2019-05-09 05:56] LABS: Absolute Lymphocyte Count 1.29 X10^3/uL (0.83-4.51); Absolute Neutrophil Count 4.7 X10^3/uL (2.0-7.7); Anion Gap 5 (5-15); BUN 25 mg/dL (7-18); BUN/Creat Ratio 30.6 RATIO (10-20); Basophil# 0.09 X10^3/uL; Basophil% 1.2 % (0-1); Calcium,Total 8.6 mg/dL (8.5-10.1); Chloride 106 mmol/L (98-107); Creatinine, Serum 0.82 mg/dL (0.70-1.30); EST Glomerular Filtration Rate 96 mL/min (>60); Eosinophil# 0.37 X10^3/uL; Est Glom Filt Rate - Afr Amer 116 mL/min (>60); Estimated Creatinine Clearance 80.75 ml/min; Glucose 96 mg/dL (74-106); Hematocrit 26.5 % (40-54); Hemoglobin 8.5 g/dL (13.0-16.5); Lymphocyte # 1.29 X10^3/ul (4.0); Lymphocyte % 17.5 % (19-41); Mean Corp Hgb Conc 32.1 g/dL (32-36); Mean Corpuscular Hgb 31.6 pg (27.0-32.0); Mean Corpuscular Volume 98.5 fL (80-94); Mean Platelet Vol. 9.3 fl (6.2-12.0); Monocyte# 0.85 X10^3/uL; Monocyte% 11.5 % (0-10); NRBC Flagged by Analyzer 0 % (0-5); Neutrophil # 4.66 X10^3/uL (2.7-7.7); Neutrophil % 63.3 % (47-70); Platelet Count 349 K/mm3 (150-450); Potassium 5.1 mmol/L (3.5-5.1); RBC Distribution Width CV 14.9 % (11.6-14.6); Red Blood Count 2.69 M/mm3 (4.6-6.2); Sodium Level 138 mmol/L (136-145); White Blood Count 7.4 K/mm3 (4.4-11.0)
[2019-05-09 06:00] LABS: Erythrocyte Sedimentation Rate 34 mm/hr (0-20)
[2019-05-09] MEDS: Iron Polysaccharide Complex 150 MG CAPSULE PO (07:55)
[2019-05-09] MEDS: Acetaminophen 325 MG Tablet 650 MG PO ×3 (11:00→22:03)
[2019-05-09] MEDS: 0.9% Saline Lock 10 ML Syringe IV ×2 (14:29→22:04)
[2019-05-09 15:48] VITALS: BP 124/80; PULSE 75; RESP 18; TEMP 36.9; O2SAT 95
[2019-05-09] MEDS: traMADol 50 MG Tablet PO (17:13)
[2019-05-10] MEDS: 0.9% Saline Lock 10 ML Syringe IV ×4 (00:05→21:02)
[2019-05-10] MEDS: Amiodarone 200 MG Tablet PO (05:42)
[2019-05-10] MEDS: Meloxicam 7.5 MG Tablet PO (05:42)
[2019-05-10] MEDS: Pantoprazole Sodium 20 MG Tablet PO (05:42)
[2019-05-10] MEDS: Nystatin Powder 15gm Bottle 1 APPLIC TOPICAL ×2 (07:17→21:16)
[2019-05-10] MEDS: Iron Polysaccharide Complex 150 MG CAPSULE PO (08:20)
--- NOTE | 2019-05-10 08:30 | NURSING ---
WOUND VAC CANISTER CHANGED BY THIS NURSE. 400 ML OUT.
[2019-05-10 10:50] VITALS: PULSE 79; RESP 18; O2SAT 98
[2019-05-10 15:25] VITALS: BP 133/67; PULSE 73; RESP 20; TEMP 37.2; O2SAT 96
[2019-05-10] MEDS: traMADol 50 MG Tablet PO (18:30)
[2019-05-10] MEDS: Acetaminophen 325 MG Tablet 650 MG PO (18:31)
[2019-05-11] MEDS: 0.9% Saline Lock 10 ML Syringe IV ×2 (05:47→21:35)
[2019-05-11] MEDS: Amiodarone 200 MG Tablet PO (05:51)
[2019-05-11] MEDS: Pantoprazole Sodium 20 MG Tablet PO (05:51)
[2019-05-11] MEDS: Meloxicam 7.5 MG Tablet PO (05:51)
[2019-05-11] MEDS: Nystatin Powder 15gm Bottle 1 APPLIC TOPICAL ×2 (05:55→19:57)
[2019-05-11] MEDS: Iron Polysaccharide Complex 150 MG CAPSULE PO (08:30)
--- NOTE | 2019-05-11 09:32 | NURSING ---
Addendum entered by Esther Hollingsworth 05/11/19 14:11: message left with Dr Westbrook's office, awaiting return call w/orders. pt does have f/u appt on 05/18 Original Note: Be, algologistrn shift mgr nurse changed wound vac to LT hip this AM. Will call DR Westbrook to see when alyssa are to be removed
[2019-05-11] MEDS: Acetaminophen 325 MG Tablet 650 MG PO ×2 (14:02→19:52)
[2019-05-11 16:00] VITALS: BP 120/70; PULSE 75; RESP 18; TEMP 36.7; O2SAT 96
[2019-05-11 19:59] VITALS: PULSE 78; RESP 16; O2SAT 97
[2019-05-12] MEDS: 0.9% Saline Lock 10 ML Syringe IV ×3 (07:20→21:24)
[2019-05-12] MEDS: Pantoprazole Sodium 20 MG Tablet PO (07:21)
[2019-05-12] MEDS: Nystatin Powder 15gm Bottle 1 APPLIC TOPICAL ×2 (07:21→21:28)
[2019-05-12] MEDS: Meloxicam 7.5 MG Tablet PO (07:22)
[2019-05-12] MEDS: Amiodarone 200 MG Tablet PO (07:22)
[2019-05-12] MEDS: Acetaminophen 325 MG Tablet 650 MG PO ×3 (08:36→22:58)
[2019-05-12] MEDS: Iron Polysaccharide Complex 150 MG CAPSULE PO (08:37)
[2019-05-12 09:20] VITALS: PULSE 77; RESP 18; O2SAT 97
[2019-05-12 15:12] VITALS: BP 116/62; PULSE 75; RESP 18; TEMP 37.1; O2SAT 96
[2019-05-12] MEDS: Menthol/Lanolin/Calamine/Znox 113 GM Tube 1 APPLIC TOPICAL (21:28)
[2019-05-13] MEDS: 0.9% Saline Lock 10 ML Syringe IV ×2 (05:53→13:09)
[2019-05-13] MEDS: Menthol/Lanolin/Calamine/Znox 113 GM Tube 1 APPLIC TOPICAL ×2 (05:54→22:07)
[2019-05-13] MEDS: Nystatin Powder 15gm Bottle 1 APPLIC TOPICAL ×2 (05:54→22:05)
[2019-05-13] MEDS: Meloxicam 7.5 MG Tablet PO (05:55)
[2019-05-13] MEDS: Pantoprazole Sodium 20 MG Tablet PO (05:55)
[2019-05-13] MEDS: Amiodarone 200 MG Tablet PO (05:55)
[2019-05-13] MEDS: Iron Polysaccharide Complex 150 MG CAPSULE PO (07:42)
[2019-05-13] MEDS: Acetaminophen 325 MG Tablet 650 MG PO ×2 (09:24→20:07)
[2019-05-13 09:30] VITALS: PULSE 69; RESP 18; O2SAT 98
--- NOTE | 2019-05-13 15:35 | NURSING ---
wound photo: left hip
[2019-05-13 16:00] VITALS: BP 116/59; PULSE 71; RESP 18; TEMP 36.6; O2SAT 97
[2019-05-14] MEDS: Amiodarone 200 MG Tablet PO (06:05)
[2019-05-14] MEDS: Meloxicam 7.5 MG Tablet PO (06:05)
[2019-05-14] MEDS: Pantoprazole Sodium 20 MG Tablet PO (06:05)
[2019-05-14] MEDS: Menthol/Lanolin/Calamine/Znox 113 GM Tube 1 APPLIC TOPICAL ×2 (06:08→21:44)
[2019-05-14] MEDS: Nystatin Powder 15gm Bottle 1 APPLIC TOPICAL ×2 (06:08→21:45)
[2019-05-14] MEDS: Iron Polysaccharide Complex 150 MG CAPSULE PO (08:04)
[2019-05-14] MEDS: Acetaminophen 325 MG Tablet 650 MG PO ×3 (10:00→21:44)
[2019-05-14 16:00] VITALS: BP 124/67; PULSE 77; RESP 20; TEMP 36.7; O2SAT 96
[2019-05-14] MEDS: 0.9% Saline Lock 10 ML Syringe IV (21:38)
[2019-05-15] MEDS: Meloxicam 7.5 MG Tablet PO (05:29)
[2019-05-15] MEDS: Amiodarone 200 MG Tablet PO (05:29)
[2019-05-15] MEDS: Menthol/Lanolin/Calamine/Znox 113 GM Tube 1 APPLIC TOPICAL ×2 (05:29→21:36)
[2019-05-15] MEDS: Pantoprazole Sodium 20 MG Tablet PO (05:29)
[2019-05-15] MEDS: Nystatin Powder 15gm Bottle 1 APPLIC TOPICAL ×2 (05:30→21:36)
[2019-05-15] MEDS: 0.9% Saline Lock 10 ML Syringe IV ×3 (05:37→21:27)
[2019-05-15] MEDS: Iron Polysaccharide Complex 150 MG CAPSULE PO (07:51)
[2019-05-15 16:00] VITALS: BP 124/63; PULSE 77; RESP 18; TEMP 36.6; O2SAT 94
[2019-05-15] MEDS: Acetaminophen 325 MG Tablet 650 MG PO (21:35)
[2019-05-16] MEDS: Menthol/Lanolin/Calamine/Znox 113 GM Tube 1 APPLIC TOPICAL ×2 (06:18→21:42)
[2019-05-16] MEDS: Nystatin Powder 15gm Bottle 1 APPLIC TOPICAL ×2 (06:18→21:41)
[2019-05-16] MEDS: Pantoprazole Sodium 20 MG Tablet PO (06:18)
[2019-05-16] MEDS: Meloxicam 7.5 MG Tablet PO (06:19)
[2019-05-16] MEDS: Amiodarone 200 MG Tablet PO (06:20)
[2019-05-16] MEDS: 0.9% Saline Lock 10 ML Syringe IV ×4 (06:26→21:34)
[2019-05-16 06:44] LABS: Absolute Lymphocyte Count 1.21 X10^3/uL (0.83-4.51); Absolute Neutrophil Count 2.9 X10^3/uL (2.0-7.7); Basophil# 0.06 X10^3/uL; Basophil% 1.1 % (0-1); Eosinophil# 0.37 X10^3/uL; Hematocrit 27.8 % (40-54); Hemoglobin 9.3 g/dL (13.0-16.5); Lymphocyte # 1.21 X10^3/ul (4.0); Lymphocyte % 22.7 % (19-41); Mean Corp Hgb Conc 33.5 g/dL (32-36); Mean Corpuscular Hgb 33.2 pg (27.0-32.0); Mean Corpuscular Volume 99.3 fL (80-94); Mean Platelet Vol. 9.7 fl (6.2-12.0); Monocyte# 0.73 X10^3/uL; Monocyte% 13.7 % (0-10); NRBC Flagged by Analyzer 0 % (0-5); Neutrophil # 2.88 X10^3/uL (2.7-7.7); Neutrophil % 54.2 % (47-70); Platelet Count 284 K/mm3 (150-450); RBC Distribution Width CV 15.4 % (11.6-14.6); RBC Distribution Width SD 56.3 fl (35.1-43.9); White Blood Count 5.3 K/mm3 (4.4-11.0)
[2019-05-16 06:50] LABS: Erythrocyte Sedimentation Rate 29 mm/hr (0-20)
[2019-05-16 07:21] LABS: Anion Gap 8 (5-15); BUN 27 mg/dL (7-18); Calcium,Total 9.1 mg/dL (8.5-10.1); Chloride 107 mmol/L (98-107); Creatinine, Serum 0.82 mg/dL (0.70-1.30); EST Glomerular Filtration Rate 96 mL/min (>60); Est Glom Filt Rate - Afr Amer 116 mL/min (>60); Estimated Creatinine Clearance 80.75 ml/min; Glucose 91 mg/dL (74-106); Potassium 4.7 mmol/L (3.5-5.1); Sodium Level 140 mmol/L (136-145)
[2019-05-16] MEDS: Iron Polysaccharide Complex 150 MG CAPSULE PO (08:53)
[2019-05-16] MEDS: Acetaminophen 325 MG Tablet 650 MG PO ×2 (13:15→18:32)
[2019-05-16 15:36] VITALS: BP 115/63; PULSE 78; RESP 18; TEMP 37.1; O2SAT 96
[2019-05-16] MEDS: Senna/Docusate Sodium 1 Tablet 2 TABLET PO (16:52)
[2019-05-16 23:56] VITALS: PULSE 72; RESP 16; O2SAT 96
[2019-05-17] MEDS: 0.9% Saline Lock 10 ML Syringe IV ×3 (06:07→20:46)
[2019-05-17] MEDS: Nystatin Powder 15gm Bottle 1 APPLIC TOPICAL ×2 (06:11→20:51)
[2019-05-17] MEDS: Menthol/Lanolin/Calamine/Znox 113 GM Tube 1 APPLIC TOPICAL ×2 (06:12→20:50)
[2019-05-17] MEDS: Meloxicam 7.5 MG Tablet PO (06:12)
[2019-05-17] MEDS: Amiodarone 200 MG Tablet PO (06:12)
[2019-05-17] MEDS: Pantoprazole Sodium 20 MG Tablet PO (06:12)
[2019-05-17] MEDS: Iron Polysaccharide Complex 150 MG CAPSULE PO (08:34)
[2019-05-17] MEDS: Acetaminophen 325 MG Tablet 650 MG PO ×2 (09:44→16:58)
[2019-05-17 15:49] VITALS: BP 120/66; PULSE 76; RESP 24; TEMP 36.9; O2SAT 95
[2019-05-18] MEDS: 0.9% Saline Lock 10 ML Syringe IV ×3 (05:23→20:54)
[2019-05-18] MEDS: Amiodarone 200 MG Tablet PO (05:24)
[2019-05-18] MEDS: Pantoprazole Sodium 20 MG Tablet PO (05:24)
[2019-05-18] MEDS: Meloxicam 7.5 MG Tablet PO (05:24)
[2019-05-18] MEDS: Menthol/Lanolin/Calamine/Znox 113 GM Tube 1 APPLIC TOPICAL ×2 (05:25→20:55)
[2019-05-18] MEDS: Nystatin Powder 15gm Bottle 1 APPLIC TOPICAL ×2 (05:26→21:03)
[2019-05-18] MEDS: Iron Polysaccharide Complex 150 MG CAPSULE PO (07:47)
--- NOTE | 2019-05-18 09:38 | NURSING ---
wound photo: left hip
--- NOTE | 2019-05-18 09:39 | NURSING ---
ANTOINETTERN/WOUND NURSE CHANGED PT WOUND VAC.
[2019-05-18] MEDS: Acetaminophen 325 MG Tablet 650 MG PO ×2 (10:47→16:59)
--- NOTE | 2019-05-18 12:21 | PN.ID_ITS ---
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) Subjective: No fever, no n/v/d, pain improved but ongoing drainage from L hip - Physical Exam Vitals/I&O's: Vital Signs Temp Pulse Resp BP Pulse Ox 98.5 F 76 24 H 120/66 95 05/17/19 15:49 05/17/19 15:49 05/17/19 15:49 05/17/19 15:49 05/17/19 15:49 Oxygen Delivery Method Room Air Weight: 104.837 kg Body Mass Index (BMI) 30.0 Intake and Output for Last 24 Hours 05/17/19 05/17/19 05/18/19 00:59 23:59 23:59 Intake Total 902 / 902 Output Total Balance 902 / 902 General: Alert, Cooperative, No apparent distress Lungs: Clear to auscultation, Normal air movement Cardiovascular: Regular rate, Regular Rhythm Abdomen: Soft, Non Tender, Non-Distended Skin: Incision - alyssa in place, no redness, wound vac on. Current Medications Acetaminophen (Tylenol) 650 mg PO Q4H PRN PRN PRN Reason: Pain Score 1-3/10 Last Admin: 05/18/19 10:47 Dose: 650 mg Documented by: Amiodarone HCl (Cordarone) 200 mg PO DAILY [facility] Last Admin: 05/18/19 05:24 Dose: 200 mg Documented by: Bisacodyl (Dulcolax) 10 mg PO DAILY PRN PRN Reason: Constipation Calamine/Phenol (Calmoseptine Ointment) 1 applic TOPICAL 0600,2200 [facility]; Protocol Last Admin: 05/18/19 05:25 Dose: 1 applicatio Documented by: Cyclobenzaprine HCl (Flexeril) 10 mg PO TID PRN PRN PRN Reason: MUSCLE SPASM Last Admin: 05/02/19 06:16 Dose: 10 mg Documented by: Heparin Sodium (Beef Lung) () 50 units IV UD PRN PRN Reason: PICC Line Heparin Flush Last Admin: 05/06/19 17:00 Dose: 50 units Documented by: Meropenem 1 gm/ Sodium (Chloride) 120 mls @ 240 mls/hr IV Q8 [facility] Stop: 06/04/19 22:01 Last Infusion: 05/18/19 05:52 Dose: Infused Documented by: Sodium Chloride () 250 mls @ 15 mls/hr IV .[id number] PRN PRN Reason: Saline Flush Last Infusion: 05/18/19 06:00 Dose: 0 mls/hr Documented by: Meloxicam (Mobic) 7.5 mg PO DAILY [facility] Last Admin: 05/18/19 05:24 Dose: 7.5 mg Documented by: Multi-Ingredient Cream (Eucerin) 1 applic TOPICAL QHS [facility]; Protocol Last Admin: 05/17/19 20:51 Dose: 1 applicatio Documented by: Nutritional [facility] (Leon - [place] Fl[facility]) [facility] Last Admin: 05/18/19 07:47 Dose: 1 packet Documented by: Nutritional Formula (Lactose Free) (Ensure Enlive) 120 ml PO 4X/DAY [facility] Last Admin: 05/18/19 11:08 Dose: 120 ml Documented by: Nystatin (Mycostatin Powder) 1 applic TOPICAL 0600,2200 [facility]; Protocol Last Admin: 05/18/19 05:26 Dose: 1 applicatio Documented by: Pantoprazole Sodium (Protonix) 20 mg PO DAILY [facility] Last Admin: 05/18/19 05:24 Dose: 20 mg Documented by: Polyethylene Glycol (Miralax) 17 gm PO DAILY [facility] Last Admin: 05/18/19 05:25 Dose: Not Given Documented by: Polysaccharide Iron Complex (Ferrex 150) [facility] Last Admin: 05/18/19 07:47 Dose: 150 mg Documented by: Senna/Docusate Sodium (Senokot-S, Herminia-Colace) 2 tablet PO BID [facility] Last Admin: 05/18/19 05:25 Dose: Not Given Documented by: Sodium Chloride () 10 - 40 ml IV UD PRN PRN Reason: Open End PICC Flush Last Admin: 05/18/19 05:23 Dose: 40 ml Documented by: Sodium Chloride (0.9% Nacl (Sterile) Posiflush) 10 - 40 ml IV UD PRN PRN Reason: Port access or dressing change Tramadol HCl (Ultram) 50 mg PO Q4H PRN PRN PRN Reason: Pain Score 4-5/10 Last Admin: 05/10/19 18:30 Dose: 50 mg Documented by: Medical Necessity - Tobacco Use Smoking Status: Never smoker Tobacco Use: Non-smoker Route of nutrition/ use of supplements: [] Nutritional Intake: [] IV Site: [] Powell Catheter: [] - Assessment/Plan Antibiotics: [] Assessment/Plan: [] L hip PJI - s/p megaspacer placement 04/24/[address] Westbrook at [place]. Prior cx s with MRSE and PsA. On meropenem, stop date 06/04/19. Changed to shorter infusion time. Would send cx of fluid at next wound vac change. Will follow, d/w wound care
--- NOTE | 2019-05-18 15:26 | CHAPLAIN ---
Type of Pastoral Visit ___ Initial Visit _x__ Follow-up Visit ___ On-call Visit ___ General Patient Visit ___ Spiritual Assessment ___ Family Conference ___ Bereavement ___ Rapid Response ___ Code Blue ___ Other (describe below) Pastoral Care Referral From _x__ Patient ___ Family ___ Nurse ___ Physician ___ Barrel Builder ___ Field Ring Assembler ___ Other (describe below) Sacrament/Intervention _x__ Active listening ___ Anointing ___ Temple ___ Bereavement ___ Communion ___ Gissell exploration ___ ___ Life review _x__ Prayer ___ Reconciliation ___ Sacrament of Sick ___ Supportive presence ___ Wedding ___ Other (describe below) Pastoral Comments
[2019-05-18 15:42] VITALS: BP 130/72; PULSE 74; RESP 18; TEMP 36.7; O2SAT 95
[2019-05-19] MEDS: 0.9% Saline Lock 10 ML Syringe IV ×3 (05:32→21:42)
[2019-05-19] MEDS: Meloxicam 7.5 MG Tablet PO (05:33)
[2019-05-19] MEDS: Senna/Docusate Sodium 1 Tablet 2 TABLET PO (05:33)
[2019-05-19] MEDS: Menthol/Lanolin/Calamine/Znox 113 GM Tube 1 APPLIC TOPICAL ×2 (05:33→21:53)
[2019-05-19] MEDS: Pantoprazole Sodium 20 MG Tablet PO (05:33)
[2019-05-19] MEDS: Amiodarone 200 MG Tablet PO (05:33)
[2019-05-19] MEDS: Nystatin Powder 15gm Bottle 1 APPLIC TOPICAL ×2 (05:34→21:56)
[2019-05-19] MEDS: Iron Polysaccharide Complex 150 MG CAPSULE PO (07:45)
[2019-05-19] MEDS: Acetaminophen 325 MG Tablet 650 MG PO ×2 (07:48→21:41)
[2019-05-19 10:30] VITALS: PULSE 77; RESP 18; O2SAT 98
[2019-05-19 15:56] VITALS: BP 107/68; PULSE 77; RESP 18; TEMP 36.9; O2SAT 97
[2019-05-20] MEDS: 0.9% Saline Lock 10 ML Syringe IV ×3 (05:54→21:04)
[2019-05-20] MEDS: Meloxicam 7.5 MG Tablet PO (05:57)
[2019-05-20] MEDS: Amiodarone 200 MG Tablet PO (05:57)
[2019-05-20] MEDS: Nystatin Powder 15gm Bottle 1 APPLIC TOPICAL ×2 (05:58→21:21)
[2019-05-20] MEDS: Pantoprazole Sodium 20 MG Tablet PO (05:58)
[2019-05-20] MEDS: Menthol/Lanolin/Calamine/Znox 113 GM Tube 1 APPLIC TOPICAL ×2 (05:59→21:18)
[2019-05-20] MEDS: Iron Polysaccharide Complex 150 MG CAPSULE PO (07:59)
[2019-05-20] MEDS: Acetaminophen 325 MG Tablet 650 MG PO ×2 (08:01→16:01)
--- NOTE | 2019-05-20 10:58 | NURSING ---
Therapy had called and states there was copious amounts of drainage from the left hip incision after therapy session. this nurse was with another patient on another unit at the time. had talked with DERICK Santana who did change the dressing and had obtained the wound culture as ordered.
--- NOTE | 2019-05-20 12:51 | NURSING ---
1145-pt in and family here to take pt out of facility for f/u appt.
[2019-05-20 14:11] LABS: M R Staph aureus DNA By PCR Negative (Negative); Probe Check PASS; Specimen Processing Control PASS; Staph aureus DNA By PCR NEGATIVE (Negative)
[2019-05-20 16:00] VITALS: BP 121/68; PULSE 73; RESP 18; TEMP 37; O2SAT 96
--- NOTE | 2019-05-20 16:12 | NURSING ---
pt returned from ortho appt w/ orders for surgery on friday 05/25. They are to notify pt of time.
[2019-05-21] MEDS: 0.9% Saline Lock 10 ML Syringe IV ×2 (05:42→13:25)
[2019-05-21] MEDS: Senna/Docusate Sodium 1 Tablet 2 TABLET PO (05:43)
[2019-05-21] MEDS: Menthol/Lanolin/Calamine/Znox 113 GM Tube 1 APPLIC TOPICAL ×2 (05:43→21:36)
[2019-05-21] MEDS: Nystatin Powder 15gm Bottle 1 APPLIC TOPICAL ×2 (05:43→21:37)
[2019-05-21] MEDS: Pantoprazole Sodium 20 MG Tablet PO (05:43)
[2019-05-21] MEDS: Amiodarone 200 MG Tablet PO (05:43)
[2019-05-21] MEDS: Iron Polysaccharide Complex 150 MG CAPSULE PO (07:43)
[2019-05-21] MEDS: Acetaminophen 325 MG Tablet 650 MG PO ×3 (07:50→21:29)
--- NOTE | 2019-05-21 15:21 | NURSING ---
talke with Britney from [facility], no changes in plan of care at this time
[2019-05-21 15:46] VITALS: BP 116/59; PULSE 75; RESP 18; TEMP 36.8; O2SAT 99
[2019-05-22] MEDS: 0.9% Saline Lock 10 ML Syringe IV (06:20)
[2019-05-22] MEDS: Acetaminophen 325 MG Tablet 650 MG PO ×4 (06:26→22:19)
[2019-05-22] MEDS: Amiodarone 200 MG Tablet PO (06:26)
[2019-05-22] MEDS: Pantoprazole Sodium 20 MG Tablet PO (06:27)
[2019-05-22] MEDS: Nystatin Powder 15gm Bottle 1 APPLIC TOPICAL ×2 (06:28→22:22)
[2019-05-22] MEDS: Menthol/Lanolin/Calamine/Znox 113 GM Tube 1 APPLIC TOPICAL ×2 (06:30→22:22)
[2019-05-22] MEDS: Iron Polysaccharide Complex 150 MG CAPSULE PO (07:35)
--- NOTE | 2019-05-22 11:57 | PN.ID_ITS ---
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 - Physical Exam Vitals/I&O's: Vital Signs Temp Pulse Resp BP Pulse Ox 98.3 F 75 18 116/59 L 99 05/21/19 15:46 05/21/19 15:46 05/21/19 15:46 05/21/19 15:46 05/21/19 15:46 Oxygen Delivery Method Room Air Weight: 106.849 kg Body Mass Index (BMI) 30.0 Intake and Output for Last 24 Hours 05/20/19 05/21/19 05/22/19 23:59 23:59 23:59 Intake Total 1436 / 1436 1752 / 1752 808 / 808 Output Total 450 / 450 200 / 200 Balance 986 / 986 1752 / 1752 608 / 608 General: Alert, Cooperative, No apparent distress Lungs: Clear to auscultation, Normal air movement Cardiovascular: Regular rate, Regular Rhythm Abdomen: Soft, Non Tender, Non-Distended Skin: Ulcer/ Wound - reviewed photo Microbiology Past 72 Hours 05/20/19 10:45 Wound - Hip Gram Stain - Final 05/20/19 10:45 Wound - Hip Wound Culture - Preliminary Presumptive C albicans Coag Negative Staph GPC Poss Enterococcus sp Current Medications Acetaminophen (Tylenol) 650 mg PO Q4H PRN PRN PRN Reason: Pain Score 1-3/10 Last Admin: 05/22/19 11:06 Dose: 650 mg Documented by: Amiodarone HCl (Cordarone) 200 mg PO DAILY [facility] Last Admin: 05/22/19 06:26 Dose: 200 mg Documented by: Bisacodyl (Dulcolax) 10 mg PO DAILY PRN PRN Reason: Constipation Calamine/Phenol (Calmoseptine Ointment) 1 applic TOPICAL 0600,2200 [facility]; Protocol Last Admin: 05/22/19 06:30 Dose: 1 applicatio Documented by: Cyclobenzaprine HCl (Flexeril) 10 mg PO TID PRN PRN PRN Reason: MUSCLE SPASM Last Admin: 05/02/19 06:16 Dose: 10 mg Documented by: Heparin Sodium (Beef Lung) () 50 units IV UD PRN PRN Reason: PICC Line Heparin Flush Last Admin: 05/06/19 17:00 Dose: 50 units Documented by: Meropenem 1 gm/ Sodium (Chloride) 120 mls @ 240 mls/hr IV Q8 [facility] Stop: 06/04/19 22:01 Last Infusion: 05/22/19 06:50 Dose: Infused Documented by: Sodium Chloride () 250 mls @ 15 mls/hr IV .[id number] PRN PRN Reason: Saline Flush Last Infusion: 05/22/19 07:12 Dose: 0 mls/hr Documented by: Multi-Ingredient Cream (Eucerin) 1 applic TOPICAL QHS [facility]; Protocol Last Admin: 05/21/19 21:36 Dose: 1 applicatio Documented by: Nutritional Formula (Leon - [place] Flavor) [facility] Last Admin: 05/22/19 07:35 Dose: 1 packet Documented by: Nutritional Formula (Lactose Free) (Ensure Enlive) 120 ml PO 4X/DAY [facility] Last Admin: 05/22/19 06:25 Dose: 120 ml Documented by: Nystatin (Mycostatin Powder) 1 applic TOPICAL 0600,2200 [facility]; Protocol Last Admin: 05/22/19 06:28 Dose: 1 applicatio Documented by: Pantoprazole Sodium (Protonix) 20 mg PO DAILY [facility] Last Admin: 05/22/19 06:27 Dose: 20 mg Documented by: Polyethylene Glycol (Miralax) 17 gm PO DAILY [facility] Last Admin: 05/22/19 06:27 Dose: Not Given Documented by: Polysaccharide Iron Complex (Ferrex 150) [facility] Last Admin: 05/22/19 07:35 Dose: 150 mg Documented by: Senna/Docusate Sodium (Senokot-S, Herminia-Colace) 2 tablet PO BID [facility] Last Admin: 05/22/19 06:26 Dose: Not Given Documented by: Sodium Chloride () 10 - 40 ml IV UD PRN PRN Reason: Open End PICC Flush Last Admin: 05/22/19 06:20 Dose: 30 ml Documented by: Sodium Chloride (0.9% Nacl (Sterile) Posiflush) 10 - 40 ml IV UD PRN PRN Reason: Port access or dressing change Tramadol HCl (Ultram) 50 mg PO Q4H PRN PRN PRN Reason: Pain Score 4-5/10 Last Admin: 05/10/19 18:30 Dose: 50 mg Documented by: Medical Necessity - Tobacco Use Smoking Status: Never smoker Tobacco Use: Non-smoker Route of nutrition/ use of supplements: [] Nutritional Intake: [] IV Site: [] Powell Catheter: [] - Assessment/Plan Antibiotics: [] Assessment/Plan: [] L hip PJI - s/p megaspacer placement 04/24/[address] Westbrook at [place]. Prior cxs with MRSE and PsA. On meropenem, stop date 06/04/19. Ongoing drainage, wound cx now showing yeast, enterococcus, and CoNS. Given clinical stability, will hold off on adding additional abx pending further surgery on 05/25/19 at [place]. Will contact Dr. Goins who will be taking care of him there. Will follow, d/w nursing
--- NOTE | 2019-05-22 14:12 | DCINST_ITS ---
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 Keep extremity elevated above heart level: Operative Extremity, Left Leg Call your doctor if you observe: Fever of 101 or Higher, Inability to urinate, Inability to have a bowel movement, Chest pain, Uncontrolled pain Allergies/Adverse Reactions: Allergies apple Allergy (Verified 09/01/18 15:30) Rash Penicillins [PCN] Allergy (Verified 09/01/18 15:30) Rash Medications to take at Discharge Amiodarone HCl 200 mg PO DAILY 09/01/18 Acetaminophen [Tylenol] 650 mg PO Q4H PRN PRN 05/01/19 Cyclobenzaprine HCl 10 mg PO TID PRN PRN 05/01/19 Esomeprazole Magnesium [Nexium] 20 mg PO DAILY 05/01/19 Meropenem 1 gm IV Q8 05/01/19 traMADol [Ultram] 50 mg PO Q4H PRN PRN 05/01/19 0.9 % NaCl (Sterile) Posiflush [0.9% NaCl (Sterile) Posiflush] 10 - 40 ml IV UD PRN disp.syrin 05/22/19 0.9% Saline Lock 10 - 40 ml IV UD PRN syringe 05/22/19 Bisacodyl [Dulcolax] 10 mg PO DAILY PRN tab 05/22/19 Ensure Enlive 120 ml PO 4X/DAY liquid 05/22/19 Heparin Pf Lock 10 units/ml 50 units IV UD PRN syringe 05/22/19 Iron Polysaccharide Complex [Ferrex 150] 150 mg PO DAILYCM cap 05/22/19 Menthol/Lanolin/Calamine/Znox [Calmoseptine Ointment] 1 applic TOPICAL 0600,2200 tube 05/22/19 Meropenem [Merrem] 1 gm IV Q8 vial 05/22/19 Mineral Oil/Petrolatum,White [Eucerin] 1 applic TOPICAL QHS jar 05/22/19 Nutritional Supplement [Leon - ORANGE FLAVOR] 1 packet PO BIDCM packet 05/22/19 Nystatin Powder [Mycostatin Powder] 1 applic TOPICAL 0600,2200 bottle 05/22/19 Polyethylene Glycol 3350 [Miralax] 17 gm PO DAILY packet 05/22/19 Senna/Docusate Sodium [Senokot-S] 2 tab PO BID tab 05/22/19 Primary Care Physician: Christos Golden [Primary Care Provider] - Please follow up with your Primary Care Physician in: 1 week. Test Results: Test results from this visit will be discussed in further detail at your follow- up appointment, if applicable. Please Follow Up With: Dr. Westbrook When: in 10 days Please Follow Up With: Christiano Bonilla MD When: 2-3 weeks Proposed Discharge Date: 05/25/19
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
[2019-05-22 15:37] VITALS: BP 133/70; PULSE 74; RESP 21; TEMP 36.9; O2SAT 97
[2019-05-23] MEDS: Menthol/Lanolin/Calamine/Znox 113 GM Tube 1 APPLIC TOPICAL ×2 (04:55→21:52)
[2019-05-23] MEDS: Amiodarone 200 MG Tablet PO (04:56)
[2019-05-23] MEDS: Nystatin Powder 15gm Bottle 1 APPLIC TOPICAL ×2 (04:56→21:53)
[2019-05-23] MEDS: Pantoprazole Sodium 20 MG Tablet PO (04:56)
[2019-05-23] MEDS: 0.9% Saline Lock 10 ML Syringe IV ×4 (04:57→21:49)
[2019-05-23 05:18] LABS: Absolute Neutrophil Count 3.4 X10^3/uL (2.0-7.7); Basophil# 0.05 X10^3/uL; Basophil% 0.9 % (0-1); Eosinophil# 0.43 X10^3/uL; Eosinophils% 7.4 % (0-5); Hematocrit 30.2 % (40-54); Hemoglobin 9.9 g/dL (13.0-16.5); Mean Corp Hgb Conc 32.8 g/dL (32-36); Mean Corpuscular Hgb 33.4 pg (27.0-32.0); Mean Platelet Vol. 9.6 fl (6.2-12.0); Monocyte# 0.78 X10^3/uL; Monocyte% 13.5 % (0-10); NRBC Flagged by Analyzer 0 % (0-5); Neutrophil # 3.35 X10^3/uL (2.7-7.7); Platelet Count 213 K/mm3 (150-450); RBC Distribution Width CV 15.5 % (11.6-14.6); RBC Distribution Width SD 57.1 fl (35.1-43.9); Red Blood Count 2.96 M/mm3 (4.6-6.2); White Blood Count 5.8 K/mm3 (4.4-11.0)
[2019-05-23 05:22] LABS: Erythrocyte Sedimentation Rate 22 mm/hr (0-20)
[2019-05-23 05:25] LABS: Anion Gap 6 (5-15); BUN 33 mg/dL (7-18); Calcium,Total 8.9 mg/dL (8.5-10.1); Chloride 108 mmol/L (98-107); Creatinine, Serum 0.87 mg/dL (0.70-1.30); EST Glomerular Filtration Rate 89 mL/min (>60); Est Glom Filt Rate - Afr Amer 108 mL/min (>60); Estimated Creatinine Clearance 76.11 ml/min; Glucose 111 mg/dL (74-106); Potassium 4.6 mmol/L (3.5-5.1); Sodium Level 143 mmol/L (136-145)
[2019-05-23] MEDS: Iron Polysaccharide Complex 150 MG CAPSULE PO (08:19)
[2019-05-23] MEDS: Acetaminophen 325 MG Tablet 650 MG PO ×3 (08:23→18:00)
[2019-05-23 08:29] VITALS: RESP 18
[2019-05-23 15:41] VITALS: BP 141/66; PULSE 77; RESP 16; TEMP 36.7; O2SAT 97
[2019-05-24] MEDS: 0.9% Saline Lock 10 ML Syringe IV ×3 (05:35→20:58)
[2019-05-24] MEDS: Menthol/Lanolin/Calamine/Znox 113 GM Tube 1 APPLIC TOPICAL ×2 (05:36→21:00)
[2019-05-24] MEDS: Nystatin Powder 15gm Bottle 1 APPLIC TOPICAL ×2 (05:36→21:01)
[2019-05-24] MEDS: Pantoprazole Sodium 20 MG Tablet PO (05:36)
[2019-05-24] MEDS: Amiodarone 200 MG Tablet PO (05:36)
[2019-05-24] MEDS: Iron Polysaccharide Complex 150 MG CAPSULE PO (07:45)
[2019-05-24] MEDS: Acetaminophen 325 MG Tablet 650 MG PO ×2 (11:18→16:37)
[2019-05-24 15:07] VITALS: BP 104/75; PULSE 74; RESP 18; TEMP 37.1; O2SAT 98
[2019-05-25] MEDS: Amiodarone 200 MG Tablet PO (05:42)
[2019-05-25] MEDS: Pantoprazole Sodium 20 MG Tablet PO (05:42)
[2019-05-25] MEDS: 0.9% Saline Lock 10 ML Syringe IV (05:44)
[2019-05-25] MEDS: Menthol/Lanolin/Calamine/Znox 113 GM Tube 1 APPLIC TOPICAL (05:49)
[2019-05-25] MEDS: Nystatin Powder 15gm Bottle 1 APPLIC TOPICAL (05:49)
[2019-05-25] MEDS: Acetaminophen 325 MG Tablet 650 MG PO (08:36)
--- NOTE | 2019-05-25 11:20 | NURSING ---
0900 lucinda ball in and wound vac dc'd and bagged up for kci. pt given tylenol for hip pain a 7 aware of wound cx +VRE and gowns placed outside room and ppe explained. family to come for dc for further surgery and dc packet all completed. pt in good spirits this am and no questions voiced
[2019-05-25 12:44] VITALS: BP 118/64; PULSE 70; RESP 18; TEMP 36.7; O2SAT 98
== END 2019-05-25 11:10 | disposition short-term general hospital (02) | DRG 949 ==
PROVIDERS: Internal Medicine Infectious Disease; Admitting Provider Family Medicine Geriatric Medicine; Family Provider Internal Medicine; PCP Internal Medicine; Referring Provider Family Medicine Geriatric Medicine; Visit Provider Family Medicine Geriatric Medicine
DX: T84.52XD Infection and inflammatory reaction due to internal left hip prosthesis, subsequent encounter (principal); S72.302K Unspecified fracture of shaft of left femur, subsequent encounter for closed fracture with nonunion; I48.20 Chronic atrial fibrillation, unspecified; Z23 Encounter for immunization; M97.02XD 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, subsequent encounter; V49.9XXD Car occupant (driver) (passenger) injured in unspecified traffic accident, subsequent encounter; K21.9 Gastro-esophageal reflux disease without esophagitis; D50.9 Iron deficiency anemia, unspecified; I48.0 Paroxysmal atrial fibrillation; I10 Essential (primary) hypertension; M19.071 Primary osteoarthritis, right ankle and foot; Z86.718 Personal history of other venous thrombosis and embolism; Y83.1 Surgical operation with implant of artificial internal device as the cause of abnormal reaction of the patient, or of later complication, without mention of misadventure at the time of the procedure; B95.7 Other staphylococcus as the cause of diseases classified elsewhere
CPT/HCPCS: 36415; 80048; 85025; 85652; 87070; 87077; 87106; 87186; 87205; 87640; 97110; 97116; 97163; 97165; 97530; 97535; 97802; J2185; J2997; J7050; 90670; A4216

== ENCOUNTER 2019-06-03 22:24 | Inpatient (IN) | payer MEDICARE, SELFPAY ==
--- NOTE | 2019-06-03 22:30 | NURSING ---
Patient came to unit from [facility] via wheelchair. Patient assisted to bed, acclimated to room and call light. No needs voiced at this time.
[2019-06-03 22:35] VITALS: BP 122/75; PULSE 91; RESP 20; TEMP 36.8; O2SAT 96; BMI 30.4; BMI 30.5
[2019-06-03 23:31] VITALS: BP 120/60; PULSE 84; RESP 16; TEMP 37.1; O2SAT 95
[2019-06-03] MEDS: oxyCODONE 5 MG Tablet PO (23:57)
[2019-06-04] MEDS: Menthol/Lanolin/Calamine/Znox 113 GM Tube 1 APPLIC TOPICAL ×2 (05:37→19:57)
[2019-06-04] MEDS: Pantoprazole Sodium 20 MG Tablet PO (05:37)
[2019-06-04] MEDS: Nystatin Powder 15gm Bottle 1 APPLIC TOPICAL ×2 (05:37→19:58)
[2019-06-04] MEDS: Enoxaparin 40 MG/0.4 ML Syringe SC (05:38)
[2019-06-04] MEDS: Linezolid 600 MG Tablet PO ×2 (05:38→17:42)
[2019-06-04] MEDS: Acetaminophen 325 MG Tablet 650 MG PO ×2 (05:39→17:45)
[2019-06-04 06:02] LABS: Absolute Lymphocyte Count 0.91 X10^3/uL (0.83-4.51); Absolute Neutrophil Count 5.3 X10^3/uL (2.0-7.7); Basophil# 0.05 X10^3/uL; Basophil% 0.7 % (0-1); Eosinophil# 0.13 X10^3/uL; Eosinophils% 1.7 % (0-5); Hematocrit 22.8 % (40-54); Hemoglobin 7.3 g/dL (13.0-16.5); Lymphocyte # 0.91 X10^3/ul (4.0); Lymphocyte % 11.8 % (19-41); Mean Corpuscular Hgb 31.2 pg (27.0-32.0); Mean Corpuscular Volume 97.4 fL (80-94); Mean Platelet Vol. 8.7 fl (6.2-12.0); Monocyte# 1.23 X10^3/uL; NRBC Flagged by Analyzer 0 % (0-5); Neutrophil # 5.29 X10^3/uL (2.7-7.7); Neutrophil % 68.8 % (47-70); Platelet Count 323 K/mm3 (150-450); RBC Distribution Width CV 16.4 % (11.6-14.6); RBC Distribution Width SD 58.4 fl (35.1-43.9); Red Blood Count 2.34 M/mm3 (4.6-6.2); White Blood Count 7.7 K/mm3 (4.4-11.0)
[2019-06-04 06:23] LABS: Anion Gap 7 (5-15); BUN 21 mg/dL (7-18); BUN/Creat Ratio 25.3 RATIO (10-20); Calcium,Total 8.9 mg/dL (8.5-10.1); Chloride 104 mmol/L (98-107); Creatinine, Serum 0.83 mg/dL (0.70-1.30); EST Glomerular Filtration Rate 94 mL/min (>60); Est Glom Filt Rate - Afr Amer 114 mL/min (>60); Estimated Creatinine Clearance 79.78 ml/min; Glucose 122 mg/dL (74-106); Potassium 4.1 mmol/L (3.5-5.1); Sodium Level 139 mmol/L (136-145)
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
--- NOTE | 2019-06-04 07:43 | NURSING ---
Patient's Hbg 7.[address] Henriquez notified orders given to type and cross 2 units of blood transfuse per protocol, lasix 20 mg between units on 02/02/2019.
[2019-06-04] MEDS: Iron Polysaccharide Complex 150 MG CAPSULE PO (09:00)
[2019-06-04] MEDS: Amiodarone 200 MG Tablet PO (09:00)
--- NOTE | 2019-06-04 10:39 | NURSING ---
spoke with nurse from Dr. Westbrook's office. orders for vac, drains, output clarified
[2019-06-04] MEDS: Tuberculin,Purif.prot.deriv. 50 TU/ML Vial 5 ML ID (12:05)
[2019-06-04 15:58] VITALS: BP 124/69; PULSE 82; RESP 18; TEMP 37.3; O2SAT 95
--- NOTE | 2019-06-04 18:58 | RAD_ITS ---
STUDY: X-RAY - PELVIS AND LEFT HIP REASON FOR EXAM: Male, 83 years old. Postop TECHNIQUE: 6 views of the pelvis and hip. COMPARISON: Previous left hip study of 09/12/2018 FINDINGS: There is a non-specific bowel gas pattern. Normal visualized soft tissue structures. Normal bilateral iliac wings, sacroiliac joints and visualized sacrum. Normal bilateral superior and inferior pubic rami. Normal pubic symphysis. Normal bilateral ischial tuberosities. Previously noted left hip replacement has been removed and replaced with a composite implant. There has been interval removal of fixation plate, screws, and wires seen on the previous study. Status post total right hip and left knee replacement changes are also noted. RAD/HIP, UNI W/ Pelvis 2-3 Views IMPRESSION: Previously noted left hip implant, plate, screws, and wires have been removed and replaced with composite implant. There are status post resection changes of the proximal left femur. Status post total right hip replacement and left knee replacement changes are also noted. Electronically Signed: Flaco Bradford MD at 22:35 EST , Service support ,
[2019-06-04] MEDS: oxyCODONE 5 MG Tablet 10 MG PO (20:01)
[2019-06-05] MEDS: Enoxaparin 40 MG/0.4 ML Syringe SC (05:40)
[2019-06-05] MEDS: Pantoprazole Sodium 20 MG Tablet PO (05:40)
[2019-06-05] MEDS: Menthol/Lanolin/Calamine/Znox 113 GM Tube 1 APPLIC TOPICAL ×2 (05:42→21:20)
[2019-06-05] MEDS: Nystatin Powder 15gm Bottle 1 APPLIC TOPICAL ×2 (05:43→21:19)
[2019-06-05] MEDS: oxyCODONE 5 MG Tablet 10 MG PO ×2 (05:44→16:22)
[2019-06-05] MEDS: Linezolid 600 MG Tablet PO ×2 (05:49→17:40)
[2019-06-05] MEDS: Amiodarone 200 MG Tablet PO (07:54)
[2019-06-05] MEDS: Iron Polysaccharide Complex 150 MG CAPSULE PO (07:54)
--- NOTE | 2019-06-05 07:57 | NURSING ---
Addendum entered by Esther Hollingsworth 06/05/19 11:38: dr Henriquez reviewed hip xray, no new orders Addendum entered by Esther Hollingsworth 06/05/19 08:00: spoke with infusion center, will be able to accept pt at 0900. blood ready according to blood bank documentation. pt updated on all. Original Note: obtained consent for blood this AM.
--- NOTE | 2019-06-05 08:05 | NURSING ---
In to assess the left hip. Prevena VAC is in place and had been applied just prior to discharge from hospital. VAC is to remain in place until 06/09/19 and then can be removed. if further drainage as in the past, may need to reapply a wound VAC. Pt also has a hemavac drain in place as well. Dr Westbrook will decide when the drain can be pulled as well. will monitor patient.
--- NOTE | 2019-06-05 09:20 | NURSING ---
pt off unit at 0900 for blood transfusion. report called to alan marie
--- NOTE | 2019-06-05 11:40 | NURSING ---
Addendum entered by Esther Hollingsworth 06/05/19 16:42: Dr collado reviewed KUB, new order for mag citrate, if ineffective, give 1 liter nulytely Original Note: shift manager reported jelly like stool this AM, DR collado notified, new order for KUB when pt returns to floor from infusion center.
--- NOTE | 2019-06-05 11:45 | EKG12_ITS ---
Test Reason : Blood Pressure : / mmHG Vent. Rate : 076 BPM Atrial Rate : 076 BPM P-R Int : 120 ms QRS Dur : 094 ms QT Int : 402 ms P-R-T Axes : -06 009 039 degrees QTc Int : 452 ms Normal sinus rhythm Normal ECG No previous ECGs available Confirmed by JUAN LYN ([id number]), newspaper editor managing STEPHANIE DOUGLASS ([id number]) on 06/15/2019 2:25:17 PM Referred By: Confirmed By:JUAN LYN
--- NOTE | 2019-06-05 12:00 | NURSING ---
dr Bonilla here to see pt, sent him to infusion center. starting pt on diflucan.
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
--- NOTE | 2019-06-05 13:51 | PHA.CONS_ITS ---
<AleshaKindra - Last Filed: 06/05/19 13:51> Progress Note - Pharmacy Subjective: TCU Admission Objective: Allergies apple Allergy (Verified 09/01/18 15:30) Rash Penicillins [PCN] Allergy (Verified 09/01/18 15:30) Rash Current Medications Generic Name Dose Route Start Last Admin Trade Name Freq PRN Reason Stop Dose Admin Acetaminophen 650 mg 06/03/19 23:07 06/04/19 17:45 Tylenol PO 650 mg Q4H PRN PRN Administration Pain Score 1-3/10 Amiodarone HCl 200 mg 06/04/19 08:00 06/05/19 07:54 [facility] Bisacodyl 10 mg 06/03/19 23:09 Dulcolax PO DAILY PRN PRN Constipation Calamine/Phenol 1 applic 06/04/19 06:00 06/05/19 05:42 Calmoseptine Ointment TOPICAL 1 applicatio 0600,2200 REPLACED BY [facility] Administration Protocol Cyclobenzaprine HCl 10 mg 06/03/19 23:11 Flexeril PO TID PRN PRN MUSCLE SPASM Enoxaparin Sodium 40 mg 06/04/19 06:00 06/05/19 05:40 Lovenox SC 40 mg DAILY@0600 REPLACED BY [facility] Administration Fluconazole 400 mg 06/06/19 06:00 Diflucan PO DAILY REPLACED BY [facility] Linezolid 600 mg 06/04/19 06:00 06/05/19 05:49 Zyvox PO 600 mg BID REPLACED BY [facility] Administration Multi-Ingredient Cream 1 applic 06/04/19 22:00 06/04/19 19:58 Eucerin TOPICAL 1 applicatio HS REPLACED BY [facility] Administration Protocol Nystatin 1 applic 06/04/19 06:00 06/05/19 05:43 Mycostatin Powder TOPICAL 1 applicatio 0600,2200 REPLACED BY [facility] Administration Protocol Ondansetron HCl 4 mg 06/03/19 23:05 Zofran Odt PO Q6H PRN PRN NAUSEA/VOMITING Oxycodone HCl 10 mg 06/04/19 07:59 06/05/19 05:44 Oxyir PO 10 mg Q4H PRN PRN Administration Pain Score 6-10/10 Pantoprazole Sodium 20 mg 06/04/19 06:00 06/05/19 05:40 Protonix PO 20 mg DAILY [facility] Administration Polyethylene Glycol 17 gm 11/22/19 06:00 06/05/19 05:40 Miralax PO Not Given DAILY [facility] Polysaccharide Iron Complex 150 mg 06/04/19 08:00 06/05/19 07:54 Ferrex 150 PO 150 mg DAILYCM [facility] Administration Senna/Docusate Sodium 2 tablet 06/04/19 18:00 06/05/19 05:48 Senokot-S, Herminia-Colace PO Not Given BID [facility] Tramadol HCl 50 mg 06/03/19 23:06 Ultram PO Q4H PRN PRN Pain Score 4-5/10 Problem List Vancomycin resistant Enterococcus (Acute) Atrial fibrillation by electrocardiogram (Chronic) Vital Signs Temp Pulse Resp BP Pulse Ox 99.2 F H 82 18 124/69 H 95 06/04/19 15:58 06/04/19 15:58 06/04/19 15:58 06/04/19 15:58 06/04/19 15:58 Oxygen Delivery Method Room Air Weight: 107.6 kg Body Mass Index (BMI) 30.4 Sodium 139 mmol/L (136-145) 06/04/19 05:30 Potassium 4.1 mmol/L (3.5-5.1) 06/04/19 05:30 Chloride 104 mmol/L (98-107) 06/04/19 05:30 Carbon Dioxide 28.0 mmol/L (21.0-32.0) 06/04/19 05:30 Anion Gap 7 (5-15) 06/04/19 05:30 BUN 21 mg/dL (7-18) H 06/04/19 05:30 Creatinine 0.83 mg/dL (0.70-1.30) 06/04/19 05:30 Est GFR (MDRD) Af Amer 114 mL/min (>60) 06/04/19 05:30 Est GFR (MDRD) Non-Af 94 mL/min (>60) 06/04/19 05:30 BUN/Creatinine Ratio 25.3 RATIO (10-20) H 06/04/19 05:30 Glucose 122 mg/dL (74-106) H 06/04/19 05:30 Assessment/Plan: *1. Pain: acetaminophen 650mg PO Q4H PRN pain (1-3/10), tramadol 50mg Q4H PRN pain (4-5/10), oxycodone 10mg PO Q4H PRN pain (6-10/10). Please continue to monitor for increased pain and PRN usage. Please consider changing oxycodone to cover pain from 4-10/10 and stopping tramadol to decrease the chance of a drug interaction between linezolid and tramadol. Thanks. 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 Please consider see physician note regarding stop date. Please continue to monitor for S/S of worsening infection, platelets, S/S of serotonin syndrome (if patient receiving tramadol), and renal function. 3. DVT prophylaxis: enoxaparin 40mg SC daily. Please continue to monitor for S/S of bleeding, platelets, and renal function. *4. Atrial fibrillation: amiodarone 200mg PO DAILYCM. Please consider checking a magnesium level. Please continue to monitor QTc and electrolytes. Please see physician note regarding apixaban. 5. Iron deficiency anemia: Ferrex 150mg PO DAILYCM. Please continue to monitor hemoglobin and for dark stools. 6. GERD: pantoprazole 20mg PO daily. Please continue to monitor for S/S of GERD. *7. Muscle spasm: cyclobenzaprine 10mg PO TID PRN muscle spasm. Please consider decreasing dose to 5mg PO TID PRN if clinically appropriate since cyclobenzaprine is on the BEERS List and may lead to anticholinergic side effects. Thanks. 8. Nausea: ondansetron 4mg PO Q6H PRN nausea/vomiting. Please continue to monitor for nausea and vomiting. 9. Tinea corporis: nystatin powder 1 application topically to the groin BID. Please continue to monitor for worsening rash or itching. Psychotropic Medications: None Unnecessary Medications: None *Bowel Regimen: Miralax 17gm PO daily, senna/docusate 2T PO BID, bisacodyl 10mg PO daily PRN constipation. Patient has not been given Miralax or senna/docusate due to diarrhea. Please consider changing from scheduled to PRN constipation. Please continue to monitor for constipation. Date of Note:: 06/05/19 - Provider Comments Provider responsibility: Provider responsible to enter orders to implement recommendations <Hank Henriquez Chi - Last Filed: 06/05/19 14:44> Progress Note - Pharmacy Subjective: [] Objective: Allergies apple Allergy (Verified 09/01/18 15:30) Rash Penicillins [PCN] Allergy (Verified 09/01/18 15:30) Rash Current Medications Generic Name Dose Route Start Last Admin Trade Name Freq PRN Reason Stop Dose Admin Acetaminophen 650 mg 06/03/19 23:07 06/04/19 17:45 Tylenol PO 650 mg Q4H PRN PRN Administration Pain Score 1-3/10 Amiodarone HCl 200 mg 06/04/19 08:00 06/05/19 07:54 [facility] Administration Bisacodyl 10 mg 06/03/19 23:09 Dulcolax PO DAILY PRN PRN Constipation Calamine/Phenol 1 applic 06/04/19 06:00 06/05/19 05:42 Calmoseptine Ointment TOPICAL 1 applicatio 0600,2200 REPLACED BY [facility] Administration Protocol Cyclobenzaprine HCl 10 mg 06/03/19 23:11 Flexeril PO TID PRN PRN MUSCLE SPASM Enoxaparin Sodium 40 mg 06/04/19 06:00 06/05/19 05:40 Lovenox SC 40 mg DAILY@0600 REPLACED BY [facility] Administration Fluconazole 400 mg 06/06/19 06:00 Diflucan PO DAILY REPLACED BY [facility] Linezolid 600 mg 06/04/19 06:00 06/05/19 05:49 Zyvox PO 600 mg BID REPLACED BY [facility] Administration Multi-Ingredient Cream 1 applic 06/04/19 22:00 06/04/19 19:58 Eucerin TOPICAL 1 applicatio [facility] Administration Protocol Nystatin 1 applic 06/04/19 06:00 06/05/19 05:43 Mycostatin Powder TOPICAL 1 applicatio 0600,2200 REPLACED BY [facility] Administration Protocol Ondansetron HCl 4 mg 06/03/19 23:05 Zofran Odt PO Q6H PRN PRN NAUSEA/VOMITING Oxycodone HCl 10 mg 06/04/19 07:59 06/05/19 05:44 Oxyir PO 10 mg Q4H PRN PRN Administration Pain Score 6-10/10 Pantoprazole Sodium 20 mg 06/04/19 06:00 06/05/19 05:40 Protonix PO 20 mg DAILY [facility] Administration Polyethylene Glycol 17 gm 06/05/19 06:00 06/05/19 05:40 Miralax PO Not Given DAILY REPLACED BY [facility] Polysaccharide Iron Complex 150 mg 06/04/19 08:00 06/05/19 07:54 Ferrex 150 [facility] Administration Senna/Docusate Sodium 2 tablet 06/04/19 18:00 06/05/19 05:48 Senokot-S, Herminia-Colace PO Not Given BID REPLACED BY [facility] Tramadol HCl 50 mg 06/03/19 23:06 Ultram PO Q4H PRN PRN Pain Score 4-5/10 Problem List Vancomycin resistant Enterococcus (Acute) Atrial fibrillation by electrocardiogram (Chronic) Vital Signs Temp Pulse Resp BP Pulse Ox 99.2 F H 82 18 124/69 H 95 06/04/19 15:58 06/04/19 15:58 06/04/19 15:58 06/04/19 15:58 06/04/19 15:58 Oxygen Delivery Method Room Air Weight: 107.6 kg Body Mass Index (BMI) 30.4 Sodium 139 mmol/L (136-145) 06/04/19 05:30 Potassium 4.1 mmol/L (3.5-5.1) 06/04/19 05:30 Chloride 104 mmol/L (98-107) 06/04/19 05:30 Carbon Dioxide 28.0 mmol/L (21.0-32.0) 06/04/19 05:30 Anion Gap 7 (5-15) 06/04/19 05:30 BUN 21 mg/dL (7-18) H 06/04/19 05:30 Creatinine 0.83 mg/dL (0.70-1.30) 06/04/19 05:30 Est GFR (MDRD) Af Amer 114 mL/min (>60) 06/04/19 05:30 Est GFR (MDRD) Non-Af 94 mL/min (>60) 06/04/19 05:30 BUN/Creatinine Ratio 25.3 RATIO (10-20) H 06/04/19 05:30 Glucose 122 mg/dL (74-106) H 06/04/19 05:30 Assessment/Plan: Psychotropic Medications: Unnecessary Medications: Bowel Regimen: - Provider Comments Provider responsibility: Provider responsible to enter orders to implement recommendations Provider Comments to Recommendations by Pharmacy: Agree
[2019-06-05] MEDS: Fluconazole 100 MG Tablet 800 MG PO (15:04)
[2019-06-05 15:42] VITALS: BP 139/83; PULSE 77; RESP 17; TEMP 37.1; O2SAT 95
[2019-06-05] MEDS: Acetaminophen 325 MG Tablet 650 MG PO (16:22)
--- NOTE | 2019-06-05 16:30 | RAD_ITS ---
STUDY: X-RAY - ABDOMEN/PELVIS REASON FOR EXAM: Male, 83 years old. Diarrhea TECHNIQUE: Two AP supine views of the abdomen and pelvis. COMPARISON: None. FINDINGS: Normal visualized lung bases. There is a moderate amount of colonic stool. There is no evidence of ileus or obstruction. There is no demonstrated free abdominal air. The visualized liver, spleen and kidneys are grossly normal in size and morphology. An IVC filter is noted. Bilateral hip implants are again noted. RAD/Abdomen Single View (Portable) IMPRESSION: Moderate amount of colonic stool. No evidence of ileus or obstruction. Electronically Signed: Flaco Bradford MD at 16:46 EST , Service support ,
[2019-06-05] MEDS: Senna/Docusate Sodium 1 Tablet 2 TABLET PO (17:40)
[2019-06-05] MEDS: Magnesium Citrate 300 ML PO (17:40)
--- NOTE | 2019-06-05 17:41 | NURSING ---
message left with Dr Westbrook regarding his drain ouput per his request
--- NOTE | 2019-06-06 00:29 | NURSING ---
Patient remains in isolation this shift d/t VRE in wound. All care provided to patient in room.
[2019-06-06] MEDS: Electrolyte Solution/Peg's 4000 ML 1000 ML PO (05:09)
[2019-06-06] MEDS: Polyethylene Glycol 3350 17 GM PACKET PO (05:13)
[2019-06-06] MEDS: Fluconazole 100 MG Tablet 400 MG PO (05:16)
[2019-06-06] MEDS: Pantoprazole Sodium 20 MG Tablet PO (05:16)
[2019-06-06] MEDS: Linezolid 600 MG Tablet PO ×2 (05:16→17:26)
[2019-06-06] MEDS: Senna/Docusate Sodium 1 Tablet 2 TABLET PO ×2 (05:16→17:27)
[2019-06-06] MEDS: Enoxaparin 40 MG/0.4 ML Syringe SC (05:18)
[2019-06-06] MEDS: Nystatin Powder 15gm Bottle 1 APPLIC TOPICAL ×2 (05:27→21:06)
[2019-06-06] MEDS: Menthol/Lanolin/Calamine/Znox 113 GM Tube 1 APPLIC TOPICAL ×2 (05:27→21:02)
[2019-06-06] MEDS: oxyCODONE 5 MG Tablet 10 MG PO ×3 (06:17→17:32)
[2019-06-06 07:29] LABS: Hematocrit 27.9 % (40-54); Hemoglobin 8.9 g/dL (13.0-16.5)
[2019-06-06] MEDS: Iron Polysaccharide Complex 150 MG CAPSULE PO (07:47)
[2019-06-06] MEDS: Amiodarone 200 MG Tablet PO (07:47)
[2019-06-06] MEDS: Acetaminophen 325 MG Tablet 650 MG PO (13:21)
--- NOTE | 2019-06-06 15:53 | NURSING ---
distal hemovac drain removed at this time, procedure tolerated well and covered with tegaderm and gauze per Dr. Westbrook.
[2019-06-06 16:00] VITALS: BP 129/77; PULSE 76; RESP 16; TEMP 36.3; O2SAT 96
[2019-06-07] MEDS: Pantoprazole Sodium 20 MG Tablet PO (05:46)
[2019-06-07] MEDS: Fluconazole 100 MG Tablet 400 MG PO (05:46)
[2019-06-07] MEDS: Enoxaparin 40 MG/0.4 ML Syringe SC (05:46)
[2019-06-07] MEDS: Linezolid 600 MG Tablet PO ×2 (05:47→17:46)
[2019-06-07] MEDS: Menthol/Lanolin/Calamine/Znox 113 GM Tube 1 APPLIC TOPICAL ×2 (06:01→20:27)
[2019-06-07] MEDS: Nystatin Powder 15gm Bottle 1 APPLIC TOPICAL ×2 (06:02→20:26)
[2019-06-07 06:35] VITALS: RESP 16; O2SAT 97
--- NOTE | 2019-06-07 06:49 | NURSING ---
Patient remains in isolation this shift d/t VRE in wound. All care provided to patient in room.
[2019-06-07] MEDS: Amiodarone 200 MG Tablet PO (09:04)
[2019-06-07] MEDS: Iron Polysaccharide Complex 150 MG CAPSULE PO (09:04)
--- NOTE | 2019-06-07 09:12 | NURSING ---
Saline lock d/c'd from LFA at this time. Catheter intact. Pt tolerated well.
[2019-06-07] MEDS: oxyCODONE 5 MG Tablet 10 MG PO ×2 (11:10→20:33)
--- NOTE | 2019-06-07 11:56 | NURSING ---
Dr. Westbrook called for output on Hemovac drain. Orders given to take out drain in the morning and place Tegaderm.
--- NOTE | 2019-06-07 12:38 | NURSING ---
60cc emptied from proximal Hemovac drain at this time.
--- NOTE | 2019-06-07 12:39 | NURSING ---
All care provided in pt's room d/t being on isolation for VRE in wound.
[2019-06-07 15:11] VITALS: BP 132/76; PULSE 69; RESP 18; TEMP 36.4; O2SAT 98
[2019-06-07] MEDS: Acetaminophen 325 MG Tablet 650 MG PO (20:32)
[2019-06-08 05:58] LABS: Hematocrit 29.7 % (40-54); Hemoglobin 9.5 g/dL (13.0-16.5)
[2019-06-08] MEDS: Pantoprazole Sodium 20 MG Tablet PO (06:21)
[2019-06-08] MEDS: Fluconazole 100 MG Tablet 400 MG PO (06:21)
[2019-06-08] MEDS: Linezolid 600 MG Tablet PO ×2 (06:21→16:59)
[2019-06-08] MEDS: Menthol/Lanolin/Calamine/Znox 113 GM Tube 1 APPLIC TOPICAL ×2 (06:22→20:55)
[2019-06-08] MEDS: Nystatin Powder 15gm Bottle 1 APPLIC TOPICAL ×2 (06:22→20:56)
[2019-06-08] MEDS: Enoxaparin 40 MG/0.4 ML Syringe SC (06:23)
--- NOTE | 2019-06-08 07:04 | NURSING ---
Patient remains in isolation this shift d/t VRE in wound. All care provided to patient in room.
--- NOTE | 2019-06-08 08:36 | NURSING ---
PT IN PRECAUTIONS FOR VRE. ALL CARE GIVEN IN ROOM.
[2019-06-08] MEDS: Acetaminophen 325 MG Tablet 650 MG PO ×2 (08:41→21:05)
[2019-06-08] MEDS: Iron Polysaccharide Complex 150 MG CAPSULE PO (08:41)
[2019-06-08] MEDS: Amiodarone 200 MG Tablet PO (08:47)
[2019-06-08 08:53] VITALS: BP 124/58; PULSE 72
[2019-06-08 09:50] VITALS: PULSE 61; RESP 18; O2SAT 96
[2019-06-08] MEDS: oxyCODONE 5 MG Tablet 10 MG PO ×2 (11:17→21:05)
[2019-06-08 15:36] VITALS: BP 147/77; PULSE 72; RESP 16; TEMP 36.7; O2SAT 95
--- NOTE | 2019-06-08 16:23 | NURSING ---
Proximal hemovac removed, area cleansed with betadine and tegaderm occlusive dressing applied, pt tolerated well.
[2019-06-08] MEDS: Senna/Docusate Sodium 1 Tablet 2 TABLET PO (16:59)
[2019-06-08] MEDS: Bisacodyl 5 MG Tablet 10 MG PO (21:08)
[2019-06-09] MEDS: Enoxaparin 40 MG/0.4 ML Syringe SC (06:50)
[2019-06-09] MEDS: Pantoprazole Sodium 20 MG Tablet PO (06:50)
[2019-06-09] MEDS: Linezolid 600 MG Tablet PO ×2 (06:51→17:31)
[2019-06-09] MEDS: Fluconazole 100 MG Tablet 400 MG PO (06:51)
[2019-06-09] MEDS: Senna/Docusate Sodium 1 Tablet 2 TABLET PO ×2 (06:57→17:31)
[2019-06-09] MEDS: Nystatin Powder 15gm Bottle 1 APPLIC TOPICAL ×2 (07:03→21:02)
[2019-06-09] MEDS: Menthol/Lanolin/Calamine/Znox 113 GM Tube 1 APPLIC TOPICAL ×2 (07:03→21:03)
--- NOTE | 2019-06-09 07:05 | NURSING ---
Patient remains in isolation this shift d/t VRE in wound. All care provided to patient in room.
[2019-06-09] MEDS: Amiodarone 200 MG Tablet PO (08:38)
[2019-06-09] MEDS: Iron Polysaccharide Complex 150 MG CAPSULE PO (08:38)
[2019-06-09 08:44] VITALS: BP 128/70; PULSE 71
--- NOTE | 2019-06-09 09:12 | NURSING ---
PT IN PRECAUTIONS FOR VRE. ALL CARE GIVEN IN ROOM.
[2019-06-09] MEDS: Acetaminophen 325 MG Tablet 650 MG PO (09:14)
[2019-06-09] MEDS: oxyCODONE 5 MG Tablet 10 MG PO (09:14)
[2019-06-09 09:30] VITALS: PULSE 73; RESP 18; O2SAT 97
--- NOTE | 2019-06-09 10:03 | PN.ID_ITS ---
Patient Problems: Active and Suspected Problems Vancomycin resistant Enterococcus (Acute) Subjective: Feeling well, no fever, no n/v/d. - Physical Exam Vitals/I&O's: Vital Signs Temp Pulse Resp BP Pulse Ox 98.1 F 71 16 128/70 H 95 06/08/19 15:36 06/09/19 08:44 06/08/19 15:36 06/09/19 08:44 06/08/19 15:36 Oxygen Delivery Method Room Air Weight: 107.6 kg Body Mass Index (BMI) 30.4 Intake and Output for Last 24 Hours 06/07/19 06/08/19 06/09/19 23:59 23:59 23:59 Intake Total 1320 / 1320 1400 / 1400 920 / 920 Output Total 2225 / 2225 1100 / 1100 750 / 750 Balance -905 / -905 300 / 300 170 / 170 General: Alert, Cooperative, No apparent distress Lungs: Clear to auscultation, Normal air movement Cardiovascular: Regular rate, Regular Rhythm Abdomen: Soft, Non Tender, Non-Distended Skin: No rashes - L hip incision with wound vac Microbiology Past 72 Hours 06/06/19 13:00 Stool Enteric Bacteriology - Final Current Medications Acetaminophen (Tylenol) 650 mg PO Q4H PRN PRN PRN Reason: Pain Score 1-3/10 Last Admin: 06/09/19 09:14 Dose: 650 mg Documented by: [facility] Last Admin: 06/09/19 08:38 Dose: 200 mg Documented by: Bisacodyl (Dulcolax) 10 mg PO DAILY PRN PRN PRN Reason: Constipation Last Admin: 06/08/19 21:08 Dose: 10 mg Documented by: Calamine/Phenol (Calmoseptine Ointment) 1 applic TOPICAL 0600,2200 [facility]; Protocol Last Admin: 06/09/19 07:03 Dose: 1 applicatio Documented by: Cyclobenzaprine HCl (Flexeril) 10 mg PO TID PRN PRN PRN Reason: MUSCLE SPASM Enoxaparin Sodium (Lovenox) 40 mg SC DAILY@0600 [facility] Last Admin: 06/09/19 06:50 Dose: 40 mg Documented by: Fluconazole (Diflucan) 400 mg PO DAILY [facility] Last Admin: 06/09/19 06:51 Dose: 400 mg Documented by: Linezolid (Zyvox) 600 mg PO BID [facility] Last Admin: 06/09/19 06:51 Dose: 600 mg Documented by: Multi-Ingredient Cream (Eucerin) 1 applic TOPICAL HS [facility]; Protocol Last Admin: 06/08/19 20:56 Dose: 1 applicatio Documented by: Nystatin (Mycostatin Powder) 1 applic TOPICAL 0600,2200 [facility]; Protocol Last Admin: 06/09/19 07:03 Dose: 1 applicatio Documented by: Ondansetron HCl (Zofran Odt) 4 mg PO Q6H PRN PRN PRN Reason: NAUSEA/VOMITING Oxycodone HCl (Oxyir) 10 mg PO Q4H PRN PRN PRN Reason: Pain Score 6-10/10 Last Admin: 06/09/19 09:14 Dose: 10 mg Documented by: Pantoprazole Sodium (Protonix) 20 mg PO DAILY [facility] Last Admin: 06/09/19 06:50 Dose: 20 mg Documented by: Polyethylene Glycol (Miralax) 17 gm PO DAILY [facility] Last Admin: 06/09/19 06:51 Dose: Not Given Documented by: Polysaccharide Iron Complex (Ferrex 150) 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 Westbrook at [place]. Will cont linezolid and add fluconazole. Will follow
--- NOTE | 2019-06-09 10:42 | NURSING ---
DERICK CURRY/WOUND NURSE TOOK WOUND VAC OFF PT. DRESSING APPLIED. DERICK MCGILL AWARE
--- NOTE | 2019-06-09 11:17 | NURSING ---
wound photo: left hip
--- NOTE | 2019-06-09 15:54 | CHAPLAIN ---
Type of Pastoral Visit _x__ Initial Visit ___ Follow-up Visit ___ On-call Visit ___ General Patient Visit ___ Spiritual Assessment ___ Family Conference ___ Bereavement ___ Rapid Response ___ Code Blue ___ Other (describe below) Pastoral Care Referral From _x__ Patient ___ Family ___ Nurse ___ Physician ___ Digital Forensics Investigator ___ Chief Merchandising Officer ___ Other (describe below) Sacrament/Intervention _x__ Active listening ___ Anointing ___ Temple ___ Bereavement ___ Communion ___ Gissell exploration ___ ___ Life review _x__ Prayer ___ Reconciliation ___ Sacrament of Sick _x__ Supportive presence ___ Wedding ___ Other (describe below) Pastoral Comments
[2019-06-09 15:56] VITALS: BP 118/77; PULSE 70; RESP 18; TEMP 36.8; O2SAT 97
[2019-06-10] MEDS: Fluconazole 100 MG Tablet 400 MG PO (06:14)
[2019-06-10] MEDS: Linezolid 600 MG Tablet PO ×2 (06:14→17:16)
[2019-06-10] MEDS: Senna/Docusate Sodium 1 Tablet 2 TABLET PO ×2 (06:15→17:16)
[2019-06-10] MEDS: Pantoprazole Sodium 20 MG Tablet PO (06:15)
[2019-06-10] MEDS: Enoxaparin 40 MG/0.4 ML Syringe SC (06:16)
[2019-06-10] MEDS: Menthol/Lanolin/Calamine/Znox 113 GM Tube 1 APPLIC TOPICAL ×2 (06:20→20:44)
[2019-06-10] MEDS: Nystatin Powder 15gm Bottle 1 APPLIC TOPICAL ×2 (06:20→20:45)
[2019-06-10] MEDS: Iron Polysaccharide Complex 150 MG CAPSULE PO (08:22)
[2019-06-10] MEDS: Amiodarone 200 MG Tablet PO (08:22)
[2019-06-10] MEDS: Acetaminophen 325 MG Tablet 650 MG PO ×2 (13:27→22:45)
--- NOTE | 2019-06-10 14:41 | CASEMGMT ---
Social Work IDT met with patient and for care plan meeting. Discussed patient's progress in therapy. Pt is TTWB and has hip precautions. Pt has in-room isolation precautions as well. Pt is max assist for rolling in bed, max to get otedge of bed, max x1-2 for stand pivot transfers, min for UE ADLS and total for LE ADLs and toileting. Pt using adaptive equipment and weights for strengthening upper body. Explained insurance update 06/10 and continued stay is not guaranteed. Will continue to follow. Sherrie Curtis, LOSS PREVENTION MANAGER [employer] VP
[2019-06-10 15:37] VITALS: BP 130/67; PULSE 74; RESP 18; TEMP 36.8; O2SAT 97
--- NOTE | 2019-06-11 02:48 | NURSING ---
Pt remains in precautions d/t VRE in wound. All care provided in room.
[2019-06-11 05:03] LABS: Absolute Lymphocyte Count 1.39 X10^3/uL (0.83-4.51); Absolute Neutrophil Count 5.6 X10^3/uL (2.0-7.7); Basophil# 0.06 X10^3/uL; Basophil% 0.7 % (0-1); Eosinophil# 0.34 X10^3/uL; Hematocrit 27.8 % (40-54); Hemoglobin 9.1 g/dL (13.0-16.5); Lymphocyte # 1.39 X10^3/ul (4.0); Lymphocyte % 16.4 % (19-41); Mean Corp Hgb Conc 32.7 g/dL (32-36); Mean Corpuscular Hgb 30.7 pg (27.0-32.0); Mean Corpuscular Volume 93.9 fL (80-94); Mean Platelet Vol. 8.5 fl (6.2-12.0); Monocyte# 0.99 X10^3/uL; Monocyte% 11.7 % (0-10); NRBC Flagged by Analyzer 0 % (0-5); Neutrophil # 5.57 X10^3/uL (2.7-7.7); Neutrophil % 65.8 % (47-70); Platelet Count 353 K/mm3 (150-450); RBC Distribution Width CV 14.7 % (11.6-14.6); RBC Distribution Width SD 50.8 fl (35.1-43.9); Red Blood Count 2.96 M/mm3 (4.6-6.2); White Blood Count 8.5 K/mm3 (4.4-11.0)
[2019-06-11 05:17] LABS: Anion Gap 7 (5-15); BUN 18 mg/dL (7-18); Calcium,Total 8.8 mg/dL (8.5-10.1); Chloride 103 mmol/L (98-107); Creatinine, Serum 0.95 mg/dL (0.70-1.30); EST Glomerular Filtration Rate 81 mL/min (>60); Est Glom Filt Rate - Afr Amer 98 mL/min (>60); Glucose 98 mg/dL (74-106); Potassium 4.3 mmol/L (3.5-5.1); Sodium Level 137 mmol/L (136-145)
[2019-06-11] MEDS: Enoxaparin 40 MG/0.4 ML Syringe SC (06:29)
[2019-06-11] MEDS: Menthol/Lanolin/Calamine/Znox 113 GM Tube 1 APPLIC TOPICAL ×2 (06:29→22:38)
[2019-06-11] MEDS: Nystatin Powder 15gm Bottle 1 APPLIC TOPICAL ×2 (06:29→22:38)
[2019-06-11] MEDS: Fluconazole 100 MG Tablet 400 MG PO (06:30)
[2019-06-11] MEDS: Pantoprazole Sodium 20 MG Tablet PO (06:30)
[2019-06-11] MEDS: Linezolid 600 MG Tablet PO ×2 (06:30→17:31)
[2019-06-11] MEDS: Senna/Docusate Sodium 1 Tablet 2 TABLET PO ×2 (06:32→17:31)
[2019-06-11] MEDS: Acetaminophen 325 MG Tablet 650 MG PO ×3 (06:33→22:42)
[2019-06-11 08:54] VITALS: BP 135/92; PULSE 74
--- NOTE | 2019-06-11 08:54 | NURSING ---
PT IN PRECAUTIONS FOR VRE IN WOUND. ALL CARE GIVEN IN ROOM.
[2019-06-11] MEDS: Iron Polysaccharide Complex 150 MG CAPSULE PO (08:56)
[2019-06-11] MEDS: Amiodarone 200 MG Tablet PO (08:56)
[2019-06-11 10:20] VITALS: PULSE 74; RESP 18; O2SAT 97
[2019-06-11 15:46] VITALS: BP 106/54; PULSE 75; RESP 18; TEMP 36.7; O2SAT 98
[2019-06-12] MEDS: Menthol/Lanolin/Calamine/Znox 113 GM Tube 1 APPLIC TOPICAL ×2 (04:45→20:57)
[2019-06-12] MEDS: Nystatin Powder 15gm Bottle 1 APPLIC TOPICAL ×2 (04:47→20:57)
[2019-06-12] MEDS: Fluconazole 100 MG Tablet 400 MG PO (04:48)
[2019-06-12] MEDS: Pantoprazole Sodium 20 MG Tablet PO (04:49)
[2019-06-12] MEDS: Enoxaparin 40 MG/0.4 ML Syringe SC (04:49)
[2019-06-12] MEDS: Linezolid 600 MG Tablet PO ×2 (04:50→17:24)
[2019-06-12] MEDS: Amiodarone 200 MG Tablet PO (08:36)
[2019-06-12] MEDS: Iron Polysaccharide Complex 150 MG CAPSULE PO (08:36)
[2019-06-12] MEDS: Acetaminophen 325 MG Tablet 650 MG PO ×2 (08:39→17:27)
--- NOTE | 2019-06-12 11:47 | NURSING ---
All care provided in pt's room d/t VRE in wound.
[2019-06-12] MEDS: oxyCODONE 5 MG Tablet 10 MG PO ×2 (12:18→17:26)
[2019-06-12 15:32] VITALS: BP 126/72; PULSE 71; RESP 18; TEMP 36.5; O2SAT 98
--- NOTE | 2019-06-12 23:52 | NURSING ---
Pt remains in precautions during shift d/t VRE in wound. All care and treatment provided in room.
[2019-06-13] MEDS: Fluconazole 100 MG Tablet 400 MG PO (05:29)
[2019-06-13] MEDS: Menthol/Lanolin/Calamine/Znox 113 GM Tube 1 APPLIC TOPICAL ×2 (05:29→19:21)
[2019-06-13] MEDS: Linezolid 600 MG Tablet PO ×2 (05:29→17:40)
[2019-06-13] MEDS: Nystatin Powder 15gm Bottle 1 APPLIC TOPICAL ×2 (05:29→19:21)
[2019-06-13] MEDS: Pantoprazole Sodium 20 MG Tablet PO (05:29)
[2019-06-13] MEDS: Enoxaparin 40 MG/0.4 ML Syringe SC (05:30)
[2019-06-13] MEDS: oxyCODONE 5 MG Tablet 10 MG PO ×2 (05:37→16:22)
[2019-06-13 09:33] VITALS: BP 127/69; PULSE 75; RESP 18; O2SAT 95
[2019-06-13] MEDS: Iron Polysaccharide Complex 150 MG CAPSULE PO (09:34)
[2019-06-13] MEDS: Amiodarone 200 MG Tablet PO (09:34)
[2019-06-13 15:41] VITALS: BP 123/69; PULSE 74; RESP 18; TEMP 36.6; O2SAT 99
[2019-06-13] MEDS: Acetaminophen 325 MG Tablet 650 MG PO (17:40)
[2019-06-14] MEDS: oxyCODONE 5 MG Tablet 10 MG PO ×2 (00:46→19:48)
[2019-06-14] MEDS: Menthol/Lanolin/Calamine/Znox 113 GM Tube 1 APPLIC TOPICAL ×2 (05:27→19:40)
[2019-06-14] MEDS: Pantoprazole Sodium 20 MG Tablet PO (05:27)
[2019-06-14] MEDS: Linezolid 600 MG Tablet PO ×2 (05:27→17:10)
[2019-06-14] MEDS: Fluconazole 100 MG Tablet 400 MG PO (05:27)
[2019-06-14] MEDS: Nystatin Powder 15gm Bottle 1 APPLIC TOPICAL ×2 (05:27→19:40)
[2019-06-14] MEDS: Polyethylene Glycol 3350 17 GM PACKET PO (05:28)
[2019-06-14] MEDS: Senna/Docusate Sodium 1 Tablet 2 TABLET PO ×2 (05:28→17:10)
[2019-06-14] MEDS: Acetaminophen 325 MG Tablet 650 MG PO ×3 (05:32→17:13)
[2019-06-14] MEDS: Enoxaparin 40 MG/0.4 ML Syringe SC (05:34)
[2019-06-14] MEDS: Iron Polysaccharide Complex 150 MG CAPSULE PO (08:35)
[2019-06-14] MEDS: Amiodarone 200 MG Tablet PO (08:35)
[2019-06-14 08:36] VITALS: BP 114/70; PULSE 73
[2019-06-14 09:50] VITALS: PULSE 70; RESP 18; O2SAT 97
[2019-06-14] MEDS: Bisacodyl 5 MG Tablet 10 MG PO (12:54)
--- NOTE | 2019-06-14 12:56 | NURSING ---
PT REQUESTED PRN DULCOLAX,GIVEN BY THIS NURSE.
[2019-06-14 15:30] VITALS: BP 133/73; PULSE 74; RESP 18; TEMP 36.7; O2SAT 99
[2019-06-15] MEDS: Linezolid 600 MG Tablet PO ×2 (05:08→16:46)
[2019-06-15] MEDS: Fluconazole 100 MG Tablet 400 MG PO (05:08)
[2019-06-15] MEDS: Pantoprazole Sodium 20 MG Tablet PO (05:08)
[2019-06-15] MEDS: Menthol/Lanolin/Calamine/Znox 113 GM Tube 1 APPLIC TOPICAL ×2 (05:08→20:13)
[2019-06-15] MEDS: Senna/Docusate Sodium 1 Tablet 2 TABLET PO ×2 (05:08→16:45)
[2019-06-15] MEDS: Polyethylene Glycol 3350 17 GM PACKET PO (05:09)
[2019-06-15] MEDS: Nystatin Powder 15gm Bottle 1 APPLIC TOPICAL ×2 (05:09→20:13)
[2019-06-15] MEDS: Enoxaparin 40 MG/0.4 ML Syringe SC (05:10)
[2019-06-15] MEDS: Iron Polysaccharide Complex 150 MG CAPSULE PO (08:03)
[2019-06-15] MEDS: Amiodarone 200 MG Tablet PO (08:03)
[2019-06-15] MEDS: Magnesium Citrate 300 ML PO (09:39)
[2019-06-15] MEDS: oxyCODONE 5 MG Tablet 10 MG PO ×2 (09:42→15:00)
--- NOTE | 2019-06-15 11:31 | NURSING ---
Pt given 300ml Mag Citrate at 0939.
[2019-06-15 15:36] VITALS: BP 132/62; PULSE 76; RESP 16; TEMP 36.6; O2SAT 98
[2019-06-15 16:00] VITALS: BP 132/62; PULSE 76; RESP 16; TEMP 36.6; O2SAT 98
[2019-06-15] MEDS: Acetaminophen 325 MG Tablet 650 MG PO (20:12)
[2019-06-15 20:16] VITALS: PULSE 84; RESP 16; O2SAT 97
[2019-06-15] MEDS: Electrolyte Solution/Peg's 4000 ML 2000 ML PO (22:27)
[2019-06-16] MEDS: Nystatin Powder 15gm Bottle 1 APPLIC TOPICAL (06:34)
[2019-06-16] MEDS: Menthol/Lanolin/Calamine/Znox 113 GM Tube 1 APPLIC TOPICAL (06:34)
[2019-06-16] MEDS: Fluconazole 100 MG Tablet 400 MG PO (06:35)
[2019-06-16] MEDS: Linezolid 600 MG Tablet PO (06:35)
[2019-06-16] MEDS: Senna/Docusate Sodium 1 Tablet 2 TABLET PO (06:35)
[2019-06-16] MEDS: Pantoprazole Sodium 20 MG Tablet PO (06:35)
[2019-06-16] MEDS: Enoxaparin 40 MG/0.4 ML Syringe SC (06:35)
--- NOTE | 2019-06-16 06:43 | NURSING ---
Per doctor order given nulytely pt only took 500 ml of it refused to take anymore. No results tried given some more this morning and pt refused stating he has a appointment today. Rn made aware.
--- NOTE | 2019-06-16 08:09 | RAD_ITS ---
STUDY: X-RAY - PELVIS REASON FOR EXAM: Male, 83 years old. Left hip pain. TECHNIQUE: One view of the pelvis was obtained. COMPARISON: Comparison is made with prior examination dated June 04, 2019. FINDINGS: There is evidence of a superior dislocation of the left hip. The patient is status post right hip replacement. RAD/Pelvis 1 or 2 Views IMPRESSION: Superior dislocation of the left hip. Electronically Signed: Bruce Allan, at 10:44 EST , Service support ,
--- NOTE | 2019-06-16 08:09 | RAD_ITS ---
STUDY: X-RAY - LEFT FEMUR REASON FOR STUDY: Male, 83 years old. Left hip pain. Prior multiple surgeries. TECHNIQUE: 4 view(s) of the femur. COMPARISON: None. FINDINGS: There is evidence of a superior posterior dislocation of the left hip joint. The previously seen left hip prosthesis has been removed. There now is evidence of an intramedullary shanta fixation device with the compression screw fixation. 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 RAD/Femur Min 2 Views IMPRESSION: Superior posterior dislocation of the hip joint. Nonhealing fracture in the proximal shaft of the left femur. Electronically Signed: Bruce Allan, at 10:47 EST , Service support ,
[2019-06-16 08:15] VITALS: PULSE 74; RESP 18
[2019-06-16] MEDS: Iron Polysaccharide Complex 150 MG CAPSULE PO (08:52)
[2019-06-16] MEDS: Amiodarone 200 MG Tablet PO (08:52)
[2019-06-16 08:56] VITALS: BP 141/74; PULSE 84
--- NOTE | 2019-06-16 09:37 | MDS.RN ---
Information for the mds was obtained from review of the clinical record, interview of resident, staff, and direct observation of resident's care.
--- NOTE | 2019-06-16 10:45 | NURSING ---
Addendum entered by Aron Leon 06/16/19 11:44: Original Note: PT LEFT LEG/KNEE IS TURNING INWARD. BLANKET PLACED IN BETWEEN KNEES TO HELP KEEP STRAIGHT. REPORTED TO DERICK CALLEJAS
--- NOTE | 2019-06-16 11:47 | NURSING ---
SYSTEM NOT LETTING THIS NURSE AMEND PREVIOUS NOTE. AT 10:45 PT LYING IN BED,LEFT LEG AND KNEE TURNING INWARD. PLACED BLANKET IN BETWEEN LEGS AND ANKLES TO STRAIGHTEN LEG. PT PAINFUL WHEN MOVING LEG,RATED A 8 OUT OF 10. REPORTED TO DERICK CALLEJAS
[2019-06-16 12:00] VITALS: BP 117/74; PULSE 78; RESP 16; TEMP 36.4; O2SAT 98
--- NOTE | 2019-06-16 12:35 | NURSING ---
Patient to [facility] via [facility]
--- NOTE | 2019-06-16 18:48 | NURSING ---
SPOKE WITH [facility]. PATIENT TO BE ADMITTED THERE. DR MENDOZA NOTIFIED VIA TEXT
--- NOTE | 2019-06-16 20:00 | DCINST_ITS ---
- Discharge Diagnoses Current Active Problems: Current Active and Chronic Problems Vancomycin resistant Enterococcus (Acute) Atrial fibrillation by electrocardiogram (Chronic) You will use the following diet at home:: No restrictions, Regular Your food should be the consistency of: Regular Your liquids should be the consistency of: Regular/Thin Discharge Activity: Use Walker Weight Bearing Status: Toe touch weight bearing - Left lower extremity. Call your doctor if you observe: Fever of 101 or Higher, Inability to urinate, Inability to have a bowel movement, Shortness of breath, Chest pain, Uncontrolled pain Allergies/Adverse Reactions: Allergies apple Allergy (Verified 09/01/18 15:30) Rash Penicillins [PCN] Allergy (Verified 09/01/18 15:30) Rash Medications to take at Discharge Amiodarone HCl 200 mg PO DAILY 09/01/18 Cyclobenzaprine HCl 10 mg PO TID PRN PRN 05/01/19 traMADol [Ultram] 50 mg PO Q4H PRN PRN 05/01/19 Bisacodyl [Dulcolax] 10 mg PO DAILY PRN tab 05/22/19 Heparin Pf Lock 10 units/ml 50 units IV UD PRN syringe 05/22/19 Iron Polysaccharide Complex [Ferrex 150] 150 mg PO DAILYCM cap 05/22/19 Menthol/Lanolin/Calamine/Znox [Calmoseptine Ointment] 1 applic TOPICAL 0600,2200 tube 05/22/19 Mineral Oil/Petrolatum,White [Eucerin] 1 applic TOPICAL QHS jar 05/22/19 Nutritional Supplement [Leon - ORANGE FLAVOR] 1 packet PO BIDCM packet 05/22/19 Nystatin Powder [Mycostatin Powder] 1 applic TOPICAL 0600,2200 bottle 05/22/19 Polyethylene Glycol 3350 [Miralax] 17 gm PO DAILY packet 05/22/19 Senna/Docusate Sodium [Senokot-S] 2 tab PO BID tab 05/22/19 Acetaminophen [Tylenol Tablet] 650 mg PO Q4H PRN PRN tablet 06/16/19 Amiodarone HCl [Cordarone] 200 mg PO DAILYCM tablet 06/16/19 Bisacodyl [Dulcolax] 10 mg PO DAILY PRN PRN tablet 06/16/19 Enoxaparin [Lovenox] 40 mg SC DAILY@0600 syringe 06/16/19 Fluconazole [Diflucan] 400 mg PO DAILY tablet 06/16/19 Iron Polysaccharide Complex [Ferrex 150] 150 mg PO DAILYCM capsule 06/16/19 Linezolid [Zyvox] 600 mg PO BID tablet 06/16/19 Menthol/Lanolin/Calamine/Znox [Calmoseptine Ointment] 1 applic TOPICAL 0600,2200 tube 06/16/19 Mineral Oil/Petrolatum,White [Eucerin] 1 applic TOPICAL HS jar 06/16/19 Nystatin Powder [Mycostatin Powder] 1 applic TOPICAL 0600,2200 bottle 06/16/19 Ondansetron [Zofran Odt] 4 mg PO Q6H PRN PRN tablet 06/16/19 Oxycodone [Oxyir] 10 mg PO Q4H PRN PRN tablet 06/16/19 Pantoprazole Sodium [Protonix] 20 mg PO DAILY tablet 06/16/19 Polyethylene Glycol 3350 [Miralax] 17 gm PO DAILY packet 06/16/19 Senna/Docusate Sodium [Senokot-S] 2 tablet PO BID tablet 06/16/19 cycloBENZAPRine HCl [Flexeril] 10 mg PO TID PRN PRN tablet 06/16/19 traMADol [Ultram] 50 mg PO Q4H PRN PRN tablet 06/16/19 Primary Care Physician: Christos Golden [Primary Care Provider] - Please follow up with your Primary Care Physician in: 1 week. Test Results: Test results from this visit will be discussed in further detail at your follow- up appointment, if applicable. Please Follow Up With: Russell Westbrook When: 10 days Proposed Discharge Date: 06/16/19
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
== END 2019-06-16 18:48 | disposition short-term general hospital (02) | DRG 560 ==
PROVIDERS: Admitting Provider Family Medicine Geriatric Medicine; Family Provider Internal Medicine; PCP Internal Medicine; Visit Provider Family Medicine Geriatric Medicine
DX: M97.02XD 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, subsequent encounter (principal); Z16.21 Resistance to vancomycin; I48.20 Chronic atrial fibrillation, unspecified; Z23 Encounter for immunization; T84.52XD Infection and inflammatory reaction due to internal left hip prosthesis, subsequent encounter; B95.2 Enterococcus as the cause of diseases classified elsewhere; D50.9 Iron deficiency anemia, unspecified; K21.9 Gastro-esophageal reflux disease without esophagitis; B35.4 Tinea corporis; I10 Essential (primary) hypertension; Y83.1 Surgical operation with implant of artificial internal device as the cause of abnormal reaction of the patient, or of later complication, without mention of misadventure at the time of the procedure; M19.071 Primary osteoarthritis, right ankle and foot; Z86.718 Personal history of other venous thrombosis and embolism; I48.0 Paroxysmal atrial fibrillation
CPT/HCPCS: 36415; 72170; 73502; 73552; 74018; 80048; 85014; 85018; 85025; 86850; 86900; 86901; 86920; 86922; 87506; 93005; 97110; 97162; 97166; 97530; 97535; 97802; G0008; 90686

== ENCOUNTER → 2019-06-05 09:30 | Outpatient (CLI) | payer MEDICARE, SELFPAY ==
[2019-06-03 22:35] VITALS: BMI 30.4
[2019-06-05] VITALS (7 sets, daily range): BP systolic 113–157; BP diastolic 52–72; PULSE 79–87; RESP 16–18; TEMP 36.2–37.1; O2SAT 93–97; BMI 30.2
[2019-06-05] MEDS: Furosemide 20 MG/2 ML VIAL IV (12:17)
== END ==
PROVIDERS: Family Provider Internal Medicine; PCP Internal Medicine; Referring Provider Family Medicine Geriatric Medicine; Visit Provider Family Medicine Geriatric Medicine
DX: D64.9 Anemia, unspecified (principal)
CPT/HCPCS: 36430; 86850; 86900; 86901; 86920; 86922; J7040; P9016; A4216; J1940

== ENCOUNTER 2019-06-24 19:05 | Inpatient (IN) | payer MEDICARE, SELFPAY ==
[2019-06-05 09:23] VITALS: BMI 30.2
[2019-06-24 20:24] VITALS: BMI 30.2
[2019-06-24 20:28] VITALS: BP 131/67; PULSE 72; RESP 18; TEMP 37.4; O2SAT 96
[2019-06-24 20:29] VITALS: BMI 30.2
[2019-06-24] MEDS: Menthol/Lanolin/Calamine/Znox 113 GM Tube 1 APPLIC TOPICAL (22:03)
[2019-06-24] MEDS: Nystatin Powder 15gm Bottle 1 APPLIC TOPICAL (22:03)
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
[2019-06-25 06:00] LABS: Absolute Lymphocyte Count 1.48 X10^3/uL (0.83-4.51); Absolute Neutrophil Count 4.7 X10^3/uL (2.0-7.7); Basophil# 0.05 X10^3/uL; Basophil% 0.7 % (0-1); Eosinophil# 0.27 X10^3/uL; Eosinophils% 3.6 % (0-5); Hematocrit 28.2 % (40-54); Hemoglobin 9.1 g/dL (13.0-16.5); Lymphocyte # 1.48 X10^3/ul (4.0); Lymphocyte % 19.8 % (19-41); Mean Corp Hgb Conc 32.3 g/dL (32-36); Mean Corpuscular Hgb 30.3 pg (27.0-32.0); Mean Platelet Vol. 8.5 fl (6.2-12.0); Monocyte# 0.91 X10^3/uL; Monocyte% 12.2 % (0-10); NRBC Flagged by Analyzer 0 % (0-5); Neutrophil % 62.9 % (47-70); Platelet Count 298 K/mm3 (150-450); RBC Distribution Width CV 15.9 % (11.6-14.6); RBC Distribution Width SD 53.9 fl (35.1-43.9); White Blood Count 7.5 K/mm3 (4.4-11.0)
[2019-06-25] MEDS: Fluconazole 100 MG Tablet 200 MG PO (06:04)
[2019-06-25] MEDS: Linezolid 600 MG Tablet PO ×2 (06:04→17:25)
[2019-06-25] MEDS: Enoxaparin 40 MG/0.4 ML Syringe SC (06:05)
[2019-06-25] MEDS: Pantoprazole Sodium 20 MG Tablet PO (06:05)
[2019-06-25] MEDS: Nystatin Powder 15gm Bottle 1 APPLIC TOPICAL ×2 (06:13→19:39)
[2019-06-25] MEDS: Menthol/Lanolin/Calamine/Znox 113 GM Tube 1 APPLIC TOPICAL ×2 (06:14→19:38)
[2019-06-25] MEDS: Acetaminophen 500 MG Tablet 1000 MG PO ×2 (06:16→23:48)
[2019-06-25] MEDS: Senna/Docusate Sodium 1 Tablet 2 TABLET PO ×2 (06:16→17:25)
[2019-06-25 06:36] LABS: Anion Gap 7 (5-15); BUN 17 mg/dL (7-18); BUN/Creat Ratio 17.2 RATIO (10-20); Calcium,Total 8.9 mg/dL (8.5-10.1); Chloride 107 mmol/L (98-107); Creatinine, Serum 0.99 mg/dL (0.70-1.30); EST Glomerular Filtration Rate 77 mL/min (>60); Est Glom Filt Rate - Afr Amer 93 mL/min (>60); Estimated Creatinine Clearance 65.73 ml/min; Glucose 105 mg/dL (74-106); Sodium Level 140 mmol/L (136-145)
[2019-06-25] MEDS: Amiodarone 200 MG Tablet PO (08:34)
[2019-06-25] MEDS: Iron Polysaccharide Complex 150 MG CAPSULE PO (08:34)
--- NOTE | 2019-06-25 09:28 | NURSING ---
Notified ID of consult for pt. for antibiotic management
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
--- NOTE | 2019-06-25 11:57 | NURSING ---
DR Henriquez d/c'd flexeril per pharmacy d/t level one reaction with zyvox
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
[2019-06-25 16:00] VITALS: BP 129/72; PULSE 73; RESP 18; TEMP 37.1; O2SAT 98
[2019-06-26] MEDS: Linezolid 600 MG Tablet PO ×2 (05:48→17:43)
[2019-06-26] MEDS: Fluconazole 100 MG Tablet 200 MG PO (05:49)
[2019-06-26] MEDS: Menthol/Lanolin/Calamine/Znox 113 GM Tube 1 APPLIC TOPICAL ×2 (05:49→19:59)
[2019-06-26] MEDS: Enoxaparin 40 MG/0.4 ML Syringe SC (05:49)
[2019-06-26] MEDS: Pantoprazole Sodium 20 MG Tablet PO (05:50)
[2019-06-26] MEDS: Nystatin Powder 15gm Bottle 1 APPLIC TOPICAL ×2 (05:50→20:04)
[2019-06-26] MEDS: Iron Polysaccharide Complex 150 MG CAPSULE PO (07:57)
[2019-06-26] MEDS: Amiodarone 200 MG Tablet PO (07:57)
[2019-06-26] MEDS: Acetaminophen 500 MG Tablet 1000 MG PO (12:58)
[2019-06-26 16:00] VITALS: BP 128/51; PULSE 73; RESP 20; TEMP 36.4; O2SAT 98
[2019-06-27] MEDS: Fluconazole 100 MG Tablet 200 MG PO (05:47)
[2019-06-27] MEDS: Enoxaparin 40 MG/0.4 ML Syringe SC (05:47)
[2019-06-27] MEDS: Pantoprazole Sodium 20 MG Tablet PO (05:47)
[2019-06-27] MEDS: Senna/Docusate Sodium 1 Tablet 2 TABLET PO (05:47)
[2019-06-27] MEDS: Linezolid 600 MG Tablet PO ×2 (05:48→18:15)
[2019-06-27] MEDS: Nystatin Powder 15gm Bottle 1 APPLIC TOPICAL ×2 (05:51→21:50)
[2019-06-27] MEDS: Menthol/Lanolin/Calamine/Znox 113 GM Tube 1 APPLIC TOPICAL ×2 (05:51→21:50)
[2019-06-27] MEDS: Amiodarone 200 MG Tablet PO (08:17)
[2019-06-27] MEDS: Iron Polysaccharide Complex 150 MG CAPSULE PO (08:17)
[2019-06-27] MEDS: Acetaminophen 500 MG Tablet 1000 MG PO ×2 (11:36→23:50)
[2019-06-27 16:00] VITALS: BP 124/68; PULSE 77; RESP 19; TEMP 36.3; O2SAT 96
[2019-06-28] MEDS: Fluconazole 100 MG Tablet 200 MG PO (06:30)
[2019-06-28] MEDS: Pantoprazole Sodium 20 MG Tablet PO (06:30)
[2019-06-28] MEDS: Senna/Docusate Sodium 1 Tablet 2 TABLET PO (06:30)
[2019-06-28] MEDS: Linezolid 600 MG Tablet PO ×2 (06:30→17:45)
[2019-06-28] MEDS: Enoxaparin 40 MG/0.4 ML Syringe SC (06:31)
[2019-06-28] MEDS: Nystatin Powder 15gm Bottle 1 APPLIC TOPICAL ×2 (06:31→20:29)
[2019-06-28] MEDS: Menthol/Lanolin/Calamine/Znox 113 GM Tube 1 APPLIC TOPICAL ×2 (06:31→20:28)
[2019-06-28] MEDS: Amiodarone 200 MG Tablet PO (08:11)
[2019-06-28] MEDS: Iron Polysaccharide Complex 150 MG CAPSULE PO (08:11)
[2019-06-28] MEDS: Acetaminophen 500 MG Tablet 1000 MG PO (11:01)
[2019-06-28 16:00] VITALS: BP 133/54; PULSE 75; RESP 20; TEMP 36.5; O2SAT 96
[2019-06-29] MEDS: Menthol/Lanolin/Calamine/Znox 113 GM Tube 1 APPLIC TOPICAL ×2 (06:27→20:50)
[2019-06-29] MEDS: Pantoprazole Sodium 20 MG Tablet PO (06:28)
[2019-06-29] MEDS: Enoxaparin 40 MG/0.4 ML Syringe SC (06:28)
[2019-06-29] MEDS: Linezolid 600 MG Tablet PO ×2 (06:28→16:56)
[2019-06-29] MEDS: Fluconazole 100 MG Tablet 200 MG PO (06:28)
[2019-06-29] MEDS: Senna/Docusate Sodium 1 Tablet 2 TABLET PO (06:28)
[2019-06-29] MEDS: Nystatin Powder 15gm Bottle 1 APPLIC TOPICAL ×2 (06:29→20:50)
[2019-06-29] MEDS: Amiodarone 200 MG Tablet PO (07:56)
[2019-06-29] MEDS: Iron Polysaccharide Complex 150 MG CAPSULE PO (07:56)
[2019-06-29 15:23] VITALS: BP 138/75; PULSE 78; RESP 19; TEMP 36.8; O2SAT 97
--- NOTE | 2019-06-29 16:28 | CHAPLAIN ---
Type of Pastoral Visit ___ Initial Visit _x__ Follow-up Visit ___ On-call Visit ___ General Patient Visit ___ Spiritual Assessment ___ Family Conference ___ Bereavement ___ Rapid Response ___ Code Blue ___ Other (describe below) Pastoral Care Referral From _x__ Patient ___ Family ___ Nurse ___ Physician ___ Rectifier Operator ___ Core Shaper ___ Other (describe below) Sacrament/Intervention _x__ Active listening ___ Anointing ___ Yazidi ___ Bereavement ___ Communion ___ Gissell exploration ___ ___ Life review _x__ Prayer ___ Reconciliation ___ Sacrament of Sick _x__ Supportive presence ___ Wedding ___ Other (describe below) Pastoral Comments
[2019-06-30] MEDS: Fluconazole 100 MG Tablet 200 MG PO (06:58)
[2019-06-30] MEDS: Menthol/Lanolin/Calamine/Znox 113 GM Tube 1 APPLIC TOPICAL ×2 (07:00→21:21)
[2019-06-30] MEDS: Enoxaparin 40 MG/0.4 ML Syringe SC (07:00)
[2019-06-30] MEDS: Nystatin Powder 15gm Bottle 1 APPLIC TOPICAL ×2 (07:01→21:21)
[2019-06-30] MEDS: Pantoprazole Sodium 20 MG Tablet PO (07:01)
[2019-06-30] MEDS: Senna/Docusate Sodium 1 Tablet 2 TABLET PO (07:01)
[2019-06-30] MEDS: Linezolid 600 MG Tablet PO ×2 (07:02→16:58)
[2019-06-30] MEDS: Acetaminophen 500 MG Tablet 1000 MG PO ×3 (07:07→21:19)
[2019-06-30] MEDS: Amiodarone 200 MG Tablet PO (08:22)
[2019-06-30] MEDS: Iron Polysaccharide Complex 150 MG CAPSULE PO (08:22)
--- NOTE | 2019-06-30 11:36 | NURSING ---
Rates pain #5-6/10 but is refusing oxyir. he states he is willing to wait till the Tylenol is due again.
[2019-06-30 15:50] VITALS: BP 121/58; PULSE 82; RESP 18; TEMP 36.5; O2SAT 97
[2019-07-01] MEDS: Acetaminophen 500 MG Tablet 1000 MG PO ×3 (06:09→21:15)
[2019-07-01] MEDS: Pantoprazole Sodium 20 MG Tablet PO (06:09)
[2019-07-01] MEDS: Linezolid 600 MG Tablet PO ×2 (06:09→17:00)
[2019-07-01] MEDS: Senna/Docusate Sodium 1 Tablet 2 TABLET PO ×2 (06:09→17:01)
[2019-07-01] MEDS: Fluconazole 100 MG Tablet 200 MG PO (06:09)
[2019-07-01] MEDS: Nystatin Powder 15gm Bottle 1 APPLIC TOPICAL ×2 (06:10→21:20)
[2019-07-01] MEDS: Enoxaparin 40 MG/0.4 ML Syringe SC (06:10)
[2019-07-01] MEDS: Menthol/Lanolin/Calamine/Znox 113 GM Tube 1 APPLIC TOPICAL ×2 (06:10→21:19)
[2019-07-01] MEDS: Amiodarone 200 MG Tablet PO (07:54)
[2019-07-01] MEDS: Iron Polysaccharide Complex 150 MG CAPSULE PO (07:54)
--- NOTE | 2019-07-01 09:54 | CASEMGMT ---
Social Work IDT met with patient and for care plan meeting. Discussed patient's progress in therapy. Pt is max x2 to dependent for LE ADLS, TTWBS which pt cannot maintain, working on upper body strength, min assist for UE ADLs. Pt propelling 150 ft w/c. Provided [place] application for possible resources. Explained insurance with [employer] 06/30 and continued stay is not guaranteed. Discussed alternative DC options. and pt to discuss. Will continue to follow. Sherrie Curtis, CRANIOLOGIST DIRECTOR OF CORPORATE SALES
[2019-07-01 15:21] VITALS: BP 133/62; PULSE 84; RESP 16; TEMP 36.7; O2SAT 98
[2019-07-02 06:04] LABS: Absolute Lymphocyte Count 1.43 X10^3/uL (0.83-4.51); Absolute Neutrophil Count 5.3 X10^3/uL (2.0-7.7); Basophil# 0.06 X10^3/uL; Basophil% 0.7 % (0-1); Eosinophil# 0.31 X10^3/uL; Eosinophils% 3.7 % (0-5); Hematocrit 29.1 % (40-54); Hemoglobin 9.4 g/dL (13.0-16.5); Lymphocyte # 1.43 X10^3/ul (4.0); Lymphocyte % 17.1 % (19-41); Mean Corp Hgb Conc 32.3 g/dL (32-36); Mean Corpuscular Hgb 30.3 pg (27.0-32.0); Mean Corpuscular Volume 93.9 fL (80-94); Mean Platelet Vol. 8.8 fl (6.2-12.0); Monocyte% 14.4 % (0-10); NRBC Flagged by Analyzer 0 % (0-5); Neutrophil # 5.26 X10^3/uL (2.7-7.7); Neutrophil % 62.9 % (47-70); Platelet Count 271 K/mm3 (150-450); RBC Distribution Width CV 16.7 % (11.6-14.6); White Blood Count 8.4 K/mm3 (4.4-11.0)
[2019-07-02] MEDS: Menthol/Lanolin/Calamine/Znox 113 GM Tube 1 APPLIC TOPICAL ×2 (06:06→22:41)
[2019-07-02] MEDS: Fluconazole 100 MG Tablet 200 MG PO (06:06)
[2019-07-02] MEDS: Pantoprazole Sodium 20 MG Tablet PO (06:06)
[2019-07-02] MEDS: Senna/Docusate Sodium 1 Tablet 2 TABLET PO (06:06)
[2019-07-02] MEDS: Linezolid 600 MG Tablet PO ×2 (06:06→18:02)
[2019-07-02] MEDS: Enoxaparin 40 MG/0.4 ML Syringe SC (06:07)
[2019-07-02] MEDS: Nystatin Powder 15gm Bottle 1 APPLIC TOPICAL ×2 (06:07→22:41)
[2019-07-02 06:34] LABS: Anion Gap 6 (5-15); BUN 18 mg/dL (7-18); BUN/Creat Ratio 17.8 RATIO (10-20); Calcium,Total 9.6 mg/dL (8.5-10.1); Chloride 105 mmol/L (98-107); Creatinine, Serum 1.01 mg/dL (0.70-1.30); EST Glomerular Filtration Rate 75 mL/min (>60); Est Glom Filt Rate - Afr Amer 91 mL/min (>60); Estimated Creatinine Clearance 64.43 ml/min; Glucose 110 mg/dL (74-106); Potassium 4.8 mmol/L (3.5-5.1); Sodium Level 138 mmol/L (136-145)
[2019-07-02] MEDS: Amiodarone 200 MG Tablet PO (08:10)
[2019-07-02] MEDS: Iron Polysaccharide Complex 150 MG CAPSULE PO (08:10)
[2019-07-02] MEDS: Acetaminophen 500 MG Tablet 1000 MG PO ×2 (12:36→22:45)
--- NOTE | 2019-07-02 12:37 | NURSING ---
medicated w/tylenol for lt hip pain 12/22. declined the oxycodone, it blocks me up. offered stool softner, pt still declined, and, already had 1 bm this am and states probably going to be having another one pretty soon this afternoon
[2019-07-02 16:00] VITALS: BP 124/62; PULSE 83; RESP 16; TEMP 36.7; O2SAT 96
[2019-07-03] MEDS: Acetaminophen 500 MG Tablet 1000 MG PO ×3 (05:37→21:49)
[2019-07-03] MEDS: Enoxaparin 40 MG/0.4 ML Syringe SC (05:38)
[2019-07-03] MEDS: Pantoprazole Sodium 20 MG Tablet PO (05:38)
[2019-07-03] MEDS: Linezolid 600 MG Tablet PO ×2 (05:38→17:13)
[2019-07-03] MEDS: Senna/Docusate Sodium 1 Tablet 2 TABLET PO (05:38)
[2019-07-03] MEDS: Fluconazole 100 MG Tablet 200 MG PO (05:38)
[2019-07-03] MEDS: Menthol/Lanolin/Calamine/Znox 113 GM Tube 1 APPLIC TOPICAL ×2 (05:38→21:50)
[2019-07-03] MEDS: Nystatin Powder 15gm Bottle 1 APPLIC TOPICAL ×2 (05:39→21:50)
[2019-07-03] MEDS: Iron Polysaccharide Complex 150 MG CAPSULE PO (08:21)
[2019-07-03] MEDS: Amiodarone 200 MG Tablet PO (08:21)
--- NOTE | 2019-07-03 12:47 | MDS.RN ---
Information for the mds was obtained from review of the clinical record, interview of resident, staff, and direct observation of resident's care.
[2019-07-03 16:00] VITALS: BP 124/62; PULSE 78; RESP 18; TEMP 36.3; O2SAT 95
[2019-07-04] MEDS: Acetaminophen 500 MG Tablet 1000 MG PO ×4 (03:49→23:35)
[2019-07-04] MEDS: Senna/Docusate Sodium 1 Tablet 2 TABLET PO (05:51)
[2019-07-04] MEDS: Enoxaparin 40 MG/0.4 ML Syringe SC (05:51)
[2019-07-04] MEDS: Pantoprazole Sodium 20 MG Tablet PO (05:52)
[2019-07-04] MEDS: Linezolid 600 MG Tablet PO ×2 (05:52→17:29)
[2019-07-04] MEDS: Fluconazole 100 MG Tablet 200 MG PO (05:52)
[2019-07-04] MEDS: Menthol/Lanolin/Calamine/Znox 113 GM Tube 1 APPLIC TOPICAL ×2 (05:54→22:42)
[2019-07-04] MEDS: Nystatin Powder 15gm Bottle 1 APPLIC TOPICAL ×2 (05:54→22:42)
[2019-07-04] MEDS: Iron Polysaccharide Complex 150 MG CAPSULE PO (09:14)
[2019-07-04] MEDS: Amiodarone 200 MG Tablet PO (09:14)
[2019-07-04 15:56] VITALS: BP 133/64; PULSE 78; RESP 18; TEMP 36.8; O2SAT 98
[2019-07-05] MEDS: Fluconazole 100 MG Tablet 200 MG PO (06:01)
[2019-07-05] MEDS: Linezolid 600 MG Tablet PO ×2 (06:01→17:17)
[2019-07-05] MEDS: Senna/Docusate Sodium 1 Tablet 2 TABLET PO ×2 (06:01→17:17)
[2019-07-05] MEDS: Pantoprazole Sodium 20 MG Tablet PO (06:01)
[2019-07-05] MEDS: Enoxaparin 40 MG/0.4 ML Syringe SC (06:01)
[2019-07-05] MEDS: Menthol/Lanolin/Calamine/Znox 113 GM Tube 1 APPLIC TOPICAL ×2 (06:02→19:54)
[2019-07-05] MEDS: Nystatin Powder 15gm Bottle 1 APPLIC TOPICAL ×2 (06:02→19:54)
[2019-07-05] MEDS: Amiodarone 200 MG Tablet PO (07:44)
[2019-07-05] MEDS: Iron Polysaccharide Complex 150 MG CAPSULE PO (07:44)
[2019-07-05 16:00] VITALS: BP 142/75; PULSE 85; RESP 17; TEMP 36.8; O2SAT 93
[2019-07-05] MEDS: Acetaminophen 500 MG Tablet 1000 MG PO ×2 (17:17→23:36)
[2019-07-06] MEDS: Senna/Docusate Sodium 1 Tablet 2 TABLET PO (06:00)
[2019-07-06] MEDS: Enoxaparin 40 MG/0.4 ML Syringe SC (06:00)
[2019-07-06] MEDS: Pantoprazole Sodium 20 MG Tablet PO (06:00)
[2019-07-06] MEDS: Nystatin Powder 15gm Bottle 1 APPLIC TOPICAL ×2 (06:00→19:53)
[2019-07-06] MEDS: Fluconazole 100 MG Tablet 200 MG PO (06:00)
[2019-07-06] MEDS: Linezolid 600 MG Tablet PO ×2 (06:00→16:52)
[2019-07-06] MEDS: Menthol/Lanolin/Calamine/Znox 113 GM Tube 1 APPLIC TOPICAL ×2 (06:00→19:53)
[2019-07-06] MEDS: Iron Polysaccharide Complex 150 MG CAPSULE PO (08:32)
[2019-07-06] MEDS: Amiodarone 200 MG Tablet PO (08:32)
[2019-07-06] MEDS: Acetaminophen 500 MG Tablet 1000 MG PO ×3 (08:43→23:09)
--- NOTE | 2019-07-06 11:08 | PCM.PN.ID ---
Patient Problems: Active and Suspected Problems Hip dislocation, left (Acute) Nikki albicans infection (Acute) Subjective: Feeling well, no issues with hip, no fever, no n/v/d. - Physical Exam Vitals/I&O's: Vital Signs Temp Pulse Resp BP Pulse Ox 98.3 F 85 17 142/75 H 93 07/05/19 16:00 07/05/19 16:00 07/05/19 16:00 07/05/19 16:00 07/05/19 16:00 Oxygen Delivery Method Room Air Weight: 104.496 kg Body Mass Index (BMI) 30.2 Intake and Output for Last 24 Hours 07/04/19 07/05/19 07/06/19 23:59 23:59 23:59 Intake Total 1440 / 1440 1620 / 1620 480 / 480 Output Total 400 / 400 Balance 1440 / 1440 1220 / 1220 480 / 480 General: Alert, Cooperative, No apparent distress Lungs: Clear to auscultation, Normal air movement Cardiovascular: Regular rate, Regular Rhythm Abdomen: Soft, Non Tender, Non-Distended Skin: No rashes Current Medications Acetaminophen (Tylenol) 1,000 mg PO Q6H PRN PRN PRN Reason: Pain Score 1-10/10 Last Admin: 07/06/19 08:43 Dose: 1,000 mg Documented by: Amiodarone HCl (Cordarone) 200 mg PO DAILY@0800 [facility] Last Admin: 07/06/19 08:32 Dose: 200 mg Documented by: Bisacodyl (Dulcolax) 10 mg PO DAILY PRN PRN Reason: Constipation Calamine/Phenol (Calmoseptine Ointment) 1 applic TOPICAL 0600,2200 ON [facility]; Protocol Last Admin: 07/06/19 06:00 Dose: 1 applicatio Documented by: Enoxaparin Sodium (Lovenox) 40 mg SC DAILY@0600 [facility] Last Admin: 07/06/19 06:00 Dose: 40 mg Documented by: Fluconazole (Diflucan) 200 mg PO DAILY [facility] Last Admin: 07/06/19 06:00 Dose: 200 mg Documented by: Linezolid (Zyvox) 600 mg PO BID ON [facility] OF [facility] Stop: 07/13/19 12:00 Last Admin: 07/06/19 06:00 Dose: 600 mg Documented by: Multi-Ingredient Cream (Eucerin) 1 applic TOPICAL QHS [facility]; Protocol Last Admin: 07/05/19 19:53 Dose: 1 applicatio Documented by: Nystatin (Mycostatin Powder) 1 applic TOPICAL 0600,2200 ON [facility]; Protocol Last Admin: 07/06/19 06:00 Dose: 1 applicatio Documented by: Ondansetron HCl (Zofran Odt) 4 mg PO Q6H PRN PRN PRN Reason: NAUSEA/VOMITING Pantoprazole Sodium (Protonix) 20 mg PO DAILY [facility] Last Admin: 07/06/19 06:00 Dose: 20 mg Documented by: Polyethylene Glycol (Miralax) 17 gm PO DAILY ON [facility] Last Admin: 07/06/19 06:00 Dose: Not Given Documented by: Polysaccharide Iron Complex (Ferrex 150) 150 mg PO DAILYCM ON [facility] OF [facility] Last Admin: 07/06/19 08:32 Dose: 150 mg Documented by: Senna/Docusate Sodium (Senokot-S, Herminia-Colace) 2 tablet PO BID ON [facility] Last Admin: 07/06/19 06:00 Dose: 2 tablet Documented by: Medical Necessity - Tobacco Use Smoking Status: Never smoker Tobacco Use: Non-smoker Route of nutrition/ use of supplements: [] Nutritional Intake: [] IV Site: [] Powell Catheter: [] - Assessment/Plan Antibiotics: [] Assessment/Plan: [] Active and Suspected Problems Hip dislocation, left (Acute) Nikki albicans infection (Acute) 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 Reviewed labs. Cont abx as planned. Stop linezolid 07/13. Will follow
[2019-07-06 16:00] VITALS: BP 130/70; PULSE 85; RESP 16; TEMP 36.6; O2SAT 97
--- NOTE | 2019-07-06 16:56 | CHAPLAIN ---
Type of Pastoral Visit ___ Initial Visit _x__ Follow-up Visit ___ On-call Visit ___ General Patient Visit ___ Spiritual Assessment ___ Family Conference ___ Bereavement ___ Rapid Response ___ Code Blue ___ Other (describe below) Pastoral Care Referral From _x__ Patient ___ Family ___ Nurse ___ Physician ___ Retail Sales Director ___ Solar Electric/Photovoltaic Installer ___ Other (describe below) Sacrament/Intervention ___ Active listening ___ Anointing ___ Restoration ___ Bereavement ___ Communion ___ Gissell exploration ___ ___ Life review ___ Prayer ___ Reconciliation ___ Sacrament of Sick ___ Supportive presence ___ Wedding _x__ Other (describe below) Pastoral Comments patient told this folder machine today this was the 60th anniversary of their wedding; alerted staff; gave congratulations and short visit to the couple
[2019-07-07] MEDS: Pantoprazole Sodium 20 MG Tablet PO (05:44)
[2019-07-07] MEDS: Linezolid 600 MG Tablet PO ×2 (05:44→17:00)
[2019-07-07] MEDS: Senna/Docusate Sodium 1 Tablet 2 TABLET PO (05:44)
[2019-07-07] MEDS: Fluconazole 100 MG Tablet 200 MG PO (05:44)
[2019-07-07] MEDS: Menthol/Lanolin/Calamine/Znox 113 GM Tube 1 APPLIC TOPICAL ×2 (05:45→20:17)
[2019-07-07] MEDS: Enoxaparin 40 MG/0.4 ML Syringe SC (05:45)
[2019-07-07] MEDS: Nystatin Powder 15gm Bottle 1 APPLIC TOPICAL ×2 (05:45→20:17)
[2019-07-07] MEDS: Acetaminophen 500 MG Tablet 1000 MG PO ×3 (06:47→22:21)
[2019-07-07] MEDS: Amiodarone 200 MG Tablet PO (08:21)
[2019-07-07] MEDS: Iron Polysaccharide Complex 150 MG CAPSULE PO (08:22)
[2019-07-07 15:30] VITALS: BP 115/72; PULSE 82; RESP 22; TEMP 36.2; O2SAT 97
--- NOTE | 2019-07-07 22:46 | NURSING ---
2200- pt continues to refuse abductor pillow in bed at HS, wearing brace. Skin checked with PM care. Also requesting tylenol for pain level of 6. Declines stronger medication at this time.
[2019-07-08] MEDS: Enoxaparin 40 MG/0.4 ML Syringe SC (05:39)
[2019-07-08] MEDS: Linezolid 600 MG Tablet PO ×2 (05:40→16:44)
[2019-07-08] MEDS: Pantoprazole Sodium 20 MG Tablet PO (05:40)
[2019-07-08] MEDS: Fluconazole 100 MG Tablet 200 MG PO (05:40)
[2019-07-08] MEDS: Senna/Docusate Sodium 1 Tablet 2 TABLET PO (05:40)
[2019-07-08] MEDS: Menthol/Lanolin/Calamine/Znox 113 GM Tube 1 APPLIC TOPICAL ×2 (05:43→21:00)
[2019-07-08] MEDS: Nystatin Powder 15gm Bottle 1 APPLIC TOPICAL ×2 (05:43→21:00)
[2019-07-08] MEDS: Iron Polysaccharide Complex 150 MG CAPSULE PO (08:10)
[2019-07-08] MEDS: Amiodarone 200 MG Tablet PO (08:10)
[2019-07-08] MEDS: Acetaminophen 500 MG Tablet 1000 MG PO ×3 (08:12→22:07)
--- NOTE | 2019-07-08 09:31 | VDLE_ITS ---
Reason For Study: Swelling RIGHT LEFT GSV is normal. GSV is normal. CFV is compressible, spontaneous, phasic, CFV is compressible, spontaneous, phasic, competent and demonstrates normal competent, and demonstrates normal augmentation. augmentation. FV is compressible, spontaneous, phasic, Left FV proximal is compressible, competent and demonstrates normal spontaneous, phasic, competent, and augmentation. dempnstrates normal augmentation. POP V is compressible, spontaneous, phasic, Left FV not visualized from mid-distal due to competent and demonstrates normal hip brace. augmentation. POP V is compressible, spontaneous, phasic, T/P Trunk is compressible. competent and demonstrates normal PTV is compressible. augmentation. RT PerV is compressible. T/P Trunk is compressible. Procedure PTV is compressible. Exam performed portable in patient room. LT PerV is compressible. Left calf veins hard to visualize due to position of pt's leg. A preliminary report was called and/or faxed to TCU. Interpretation Summary Deep veins of the lower extremities are bilaterally patent and compressible segmentally. There is no evidence of deep vein thrombosis on either side. Valvular competence appears intact within the proximal deep venous systems bilaterally. The great saphenous veins appear bilaterally patent and compressible segmentally. The left mid-distal femoral vein was not visualized due to the presence of a brace. Ordering Physician: Hank Henriquez Referring Physician: Christos Golden Performed By: Charline Ngo RVT
[2019-07-08 16:00] VITALS: BP 136/79; PULSE 77; RESP 20; TEMP 36.2; O2SAT 96
[2019-07-09] MEDS: Enoxaparin 40 MG/0.4 ML Syringe SC (04:30)
[2019-07-09] MEDS: Acetaminophen 500 MG Tablet 1000 MG PO ×3 (04:30→17:44)
[2019-07-09] MEDS: Menthol/Lanolin/Calamine/Znox 113 GM Tube 1 APPLIC TOPICAL ×2 (04:31→21:56)
[2019-07-09] MEDS: Linezolid 600 MG Tablet PO ×2 (04:31→17:32)
[2019-07-09] MEDS: Pantoprazole Sodium 20 MG Tablet PO (04:31)
[2019-07-09] MEDS: Senna/Docusate Sodium 1 Tablet 2 TABLET PO (04:31)
[2019-07-09] MEDS: Fluconazole 100 MG Tablet 200 MG PO (04:31)
[2019-07-09] MEDS: Nystatin Powder 15gm Bottle 1 APPLIC TOPICAL ×2 (04:32→21:56)
[2019-07-09 05:44] LABS: Absolute Lymphocyte Count 1.25 X10^3/uL (0.83-4.51); Basophil# 0.07 X10^3/uL; Basophil% 1.1 % (0-1); Eosinophil# 0.24 X10^3/uL; Eosinophils% 3.8 % (0-5); Hematocrit 26.4 % (40-54); Hemoglobin 8.4 g/dL (13.0-16.5); Lymphocyte # 1.25 X10^3/ul (4.0); Lymphocyte % 19.8 % (19-41); Mean Corp Hgb Conc 31.8 g/dL (32-36); Mean Corpuscular Volume 94.3 fL (80-94); Mean Platelet Vol. 8.7 fl (6.2-12.0); Monocyte# 0.67 X10^3/uL; Monocyte% 10.6 % (0-10); NRBC Flagged by Analyzer 0 % (0-5); Neutrophil # 4.03 X10^3/uL (2.7-7.7); Neutrophil % 64.1 % (47-70); Platelet Count 251 K/mm3 (150-450); RBC Distribution Width CV 17.6 % (11.6-14.6); RBC Distribution Width SD 59.8 fl (35.1-43.9); White Blood Count 6.3 K/mm3 (4.4-11.0)
[2019-07-09 06:06] LABS: Anion Gap 8 (5-15); BUN 22 mg/dL (7-18); BUN/Creat Ratio 23.6 RATIO (10-20); Calcium,Total 8.9 mg/dL (8.5-10.1); Chloride 104 mmol/L (98-107); Creatinine, Serum 0.93 mg/dL (0.70-1.30); EST Glomerular Filtration Rate 82 mL/min (>60); Est Glom Filt Rate - Afr Amer 100 mL/min (>60); Estimated Creatinine Clearance 69.97 ml/min; Glucose 104 mg/dL (74-106); Potassium 4.4 mmol/L (3.5-5.1); Sodium Level 138 mmol/L (136-145)
[2019-07-09] MEDS: Iron Polysaccharide Complex 150 MG CAPSULE PO (08:29)
[2019-07-09] MEDS: Amiodarone 200 MG Tablet PO (08:30)
[2019-07-09 15:42] VITALS: BP 122/59; PULSE 78; RESP 22; TEMP 36.8; O2SAT 98
[2019-07-10] MEDS: Acetaminophen 500 MG Tablet 1000 MG PO ×4 (00:02→19:37)
[2019-07-10] MEDS: Senna/Docusate Sodium 1 Tablet 2 TABLET PO (05:53)
[2019-07-10] MEDS: Fluconazole 100 MG Tablet 200 MG PO (05:53)
[2019-07-10] MEDS: Pantoprazole Sodium 20 MG Tablet PO (05:53)
[2019-07-10] MEDS: Linezolid 600 MG Tablet PO ×2 (05:53→16:33)
[2019-07-10] MEDS: Menthol/Lanolin/Calamine/Znox 113 GM Tube 1 APPLIC TOPICAL ×2 (05:53→19:38)
[2019-07-10] MEDS: Enoxaparin 40 MG/0.4 ML Syringe SC (05:54)
[2019-07-10] MEDS: Nystatin Powder 15gm Bottle 1 APPLIC TOPICAL ×2 (05:54→19:38)
[2019-07-10] MEDS: Amiodarone 200 MG Tablet PO (08:21)
[2019-07-10] MEDS: Iron Polysaccharide Complex 150 MG CAPSULE PO (08:22)
[2019-07-10 15:32] VITALS: BP 131/66; PULSE 78; RESP 20; TEMP 36.3; O2SAT 98
[2019-07-11] MEDS: Senna/Docusate Sodium 1 Tablet 2 TABLET PO (06:43)
[2019-07-11] MEDS: Enoxaparin 40 MG/0.4 ML Syringe SC (06:43)
[2019-07-11] MEDS: Fluconazole 100 MG Tablet 200 MG PO (06:43)
[2019-07-11] MEDS: Pantoprazole Sodium 20 MG Tablet PO (06:43)
[2019-07-11] MEDS: Linezolid 600 MG Tablet PO ×2 (06:43→16:44)
[2019-07-11] MEDS: Menthol/Lanolin/Calamine/Znox 113 GM Tube 1 APPLIC TOPICAL ×2 (06:44→20:20)
[2019-07-11] MEDS: Nystatin Powder 15gm Bottle 1 APPLIC TOPICAL ×2 (06:44→20:20)
[2019-07-11] MEDS: Iron Polysaccharide Complex 150 MG CAPSULE PO (08:03)
[2019-07-11] MEDS: Amiodarone 200 MG Tablet PO (08:03)
[2019-07-11] MEDS: Acetaminophen 500 MG Tablet 1000 MG PO ×2 (12:11→20:19)
[2019-07-11 16:00] VITALS: BP 127/70; RESP 19; TEMP 36.8; O2SAT 97
[2019-07-12] MEDS: Acetaminophen 500 MG Tablet 1000 MG PO ×3 (02:35→23:13)
[2019-07-12] MEDS: Senna/Docusate Sodium 1 Tablet 2 TABLET PO (05:22)
[2019-07-12] MEDS: Fluconazole 100 MG Tablet 200 MG PO (05:22)
[2019-07-12] MEDS: Linezolid 600 MG Tablet PO ×2 (05:23→17:06)
[2019-07-12] MEDS: Pantoprazole Sodium 20 MG Tablet PO (05:23)
[2019-07-12] MEDS: Enoxaparin 40 MG/0.4 ML Syringe SC (05:23)
[2019-07-12] MEDS: Menthol/Lanolin/Calamine/Znox 113 GM Tube 1 APPLIC TOPICAL ×2 (05:26→20:09)
[2019-07-12] MEDS: Nystatin Powder 15gm Bottle 1 APPLIC TOPICAL ×2 (05:27→20:08)
[2019-07-12 07:33] LABS: Hematocrit 27.8 % (40-54)
[2019-07-12] MEDS: Iron Polysaccharide Complex 150 MG CAPSULE PO (07:50)
[2019-07-12] MEDS: Amiodarone 200 MG Tablet PO (07:50)
[2019-07-13] MEDS: Senna/Docusate Sodium 1 Tablet 2 TABLET PO (05:38)
[2019-07-13] MEDS: Linezolid 600 MG Tablet PO (05:38)
[2019-07-13] MEDS: Enoxaparin 40 MG/0.4 ML Syringe SC (05:39)
[2019-07-13] MEDS: Pantoprazole Sodium 20 MG Tablet PO (05:39)
[2019-07-13] MEDS: Fluconazole 100 MG Tablet 200 MG PO (05:39)
[2019-07-13] MEDS: Nystatin Powder 15gm Bottle 1 APPLIC TOPICAL ×2 (05:40→20:25)
[2019-07-13] MEDS: Menthol/Lanolin/Calamine/Znox 113 GM Tube 1 APPLIC TOPICAL ×2 (05:41→20:25)
[2019-07-13] MEDS: Iron Polysaccharide Complex 150 MG CAPSULE PO (08:37)
[2019-07-13] MEDS: Amiodarone 200 MG Tablet PO (08:37)
[2019-07-13 16:00] VITALS: BP 133/68; PULSE 82; RESP 18; TEMP 36.6; O2SAT 98
--- NOTE | 2019-07-13 17:04 | RAD_ITS ---
STUDY: X-RAY - LEFT KNEE REASON FOR EXAM: Male, 84 years old. Pain TECHNIQUE: 2 view(s) of the knee. COMPARISON: None. FINDINGS: Status post total replacement of the left knee. The hardware components are well aligned. The soft tissue structures are unremarkable. RAD/Knee 1 or 2 Views IMPRESSION: Status post total replacement of the knee. Electronically Signed: Refugio Mays DO at 18:03 EST Tel [phone], Service support ,
--- NOTE | 2019-07-13 17:30 | RAD_ITS ---
STUDY: X-RAY - PELVIS AND LEFT HIP REASON FOR EXAM: Male, 84 years old. LEFT HIP DISLOCATION TECHNIQUE: 5 views of the pelvis and hip. COMPARISON: None. FINDINGS: There is a non-specific bowel gas pattern. Normal visualized soft tissue structures. Lower lumbar degenerative changes. Normal bilateral iliac wings, sacroiliac joints and visualized sacrum. Normal bilateral superior and inferior pubic rami. Normal pubic symphysis. Normal bilateral ischial tuberosities. 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 ORIF of the left femur with dislocation at the left hip. The left femur is located superior to the acetabular prosthesis. Abnormal bony density of the left femur with prior surgery at the midshaft level with no complete bony union. An external brace is noted along the left femur. RAD/HIP, UNI W/ Pelvis 2-3 Views IMPRESSION: Dislocated left hip as noted. Postsurgical changes of the femurs bilaterally. Electronically Signed: Refugio Mays DO at 18:07 EST Tel [phone], Service support ,
[2019-07-13] MEDS: Acetaminophen 500 MG Tablet 1000 MG PO (17:47)
[2019-07-14] MEDS: Acetaminophen 500 MG Tablet 1000 MG PO ×4 (00:02→23:08)
[2019-07-14] MEDS: Senna/Docusate Sodium 1 Tablet 2 TABLET PO (06:00)
[2019-07-14] MEDS: Fluconazole 100 MG Tablet 200 MG PO (06:00)
[2019-07-14] MEDS: Enoxaparin 40 MG/0.4 ML Syringe SC (06:00)
[2019-07-14] MEDS: Pantoprazole Sodium 20 MG Tablet PO (06:00)
[2019-07-14] MEDS: Menthol/Lanolin/Calamine/Znox 113 GM Tube 1 APPLIC TOPICAL ×2 (06:01→20:01)
[2019-07-14] MEDS: Nystatin Powder 15gm Bottle 1 APPLIC TOPICAL ×2 (06:01→20:01)
[2019-07-14] MEDS: Amiodarone 200 MG Tablet PO (08:14)
[2019-07-14] MEDS: Iron Polysaccharide Complex 150 MG CAPSULE PO (08:14)
--- NOTE | 2019-07-14 10:08 | NURSING ---
Addendum entered by Esther Hollingsworth 07/14/19 10:09: sent disc of xrays along with paperwork. Original Note: pt going to appt with Dr Westbrook today, daughter and transporting him.
--- NOTE | 2019-07-14 14:43 | NURSING ---
spoke with Crissy at Dr Westbrook's office regarding referral to Dr Joby Feliciano for possible amputation. Family did get appt with Jodie on 07/28/18 at 1330.
[2019-07-14 15:47] VITALS: BP 126/69; PULSE 82; RESP 18; TEMP 36.8; O2SAT 96
--- NOTE | 2019-07-14 16:45 | CASEMGMT ---
Social Work Extensive conversation with pt, pt Siomara, dgt Deonna and pt friend Onel regarding doctor visit today and discharge plan. Pt has been denied continued stay with insurance with LCD 07/18/19 and d/c or private pay 07/19/19. D/C options presented verbally and in writing including staying at [facility] and paying privately (pt and family aware of daily rate), transferring to ECF; written lists of [facility] and [facility] facilities provided along with medicare star rating guide, and written list of private duty aids provided. Family inquiring about [facility] and [facility]. SW called both facilities and got pricing. Written information of pricing for ECF's provided as well. Pt and family to discuss options and will notify SW on of decision for discharge. SW to follow up. PHAN Ybarra
--- NOTE | 2019-07-14 17:26 | CHAPLAIN ---
Type of Pastoral Visit ___ Initial Visit _x__ Follow-up Visit ___ On-call Visit ___ General Patient Visit ___ Spiritual Assessment ___ Family Conference ___ Bereavement ___ Rapid Response ___ Code Blue ___ Other (describe below) Pastoral Care Referral From _x__ Patient ___ Family ___ Nurse ___ Physician ___ Uniform Patrol Police Officer ___ Competitive Athlete _x__ Other (describe below) Sacrament/Intervention _x__ Active listening ___ Anointing ___ Sabianist ___ Bereavement ___ Communion ___ Gissell exploration ___ ___ Life review _x__ Prayer ___ Reconciliation ___ Sacrament of Sick _x__ Supportive presence ___ Wedding ___ Other (describe below) Pastoral Comments requested by PT for visit as patient has new information and decisions ahead
[2019-07-15] MEDS: Pantoprazole Sodium 20 MG Tablet PO (05:42)
[2019-07-15] MEDS: Acetaminophen 500 MG Tablet 1000 MG PO ×3 (05:42→23:07)
[2019-07-15] MEDS: Fluconazole 100 MG Tablet 200 MG PO (05:42)
[2019-07-15] MEDS: Menthol/Lanolin/Calamine/Znox 113 GM Tube 1 APPLIC TOPICAL ×2 (05:42→20:27)
[2019-07-15] MEDS: Senna/Docusate Sodium 1 Tablet 2 TABLET PO (05:42)
[2019-07-15] MEDS: Enoxaparin 40 MG/0.4 ML Syringe SC (05:43)
[2019-07-15] MEDS: Nystatin Powder 15gm Bottle 1 APPLIC TOPICAL ×2 (05:43→20:27)
[2019-07-15] MEDS: Iron Polysaccharide Complex 150 MG CAPSULE PO (09:07)
[2019-07-15] MEDS: Amiodarone 200 MG Tablet PO (09:08)
[2019-07-15 15:55] VITALS: BP 110/72; PULSE 84; RESP 16; TEMP 36.7; O2SAT 96
[2019-07-16] MEDS: Pantoprazole Sodium 20 MG Tablet PO (06:21)
[2019-07-16] MEDS: Enoxaparin 40 MG/0.4 ML Syringe SC (06:21)
[2019-07-16] MEDS: Senna/Docusate Sodium 1 Tablet 2 TABLET PO (06:21)
[2019-07-16] MEDS: Menthol/Lanolin/Calamine/Znox 113 GM Tube 1 APPLIC TOPICAL ×2 (06:21→19:37)
[2019-07-16] MEDS: Fluconazole 100 MG Tablet 200 MG PO (06:21)
[2019-07-16] MEDS: Nystatin Powder 15gm Bottle 1 APPLIC TOPICAL ×2 (06:22→19:37)
[2019-07-16] MEDS: Amiodarone 200 MG Tablet PO (08:12)
[2019-07-16] MEDS: Iron Polysaccharide Complex 150 MG CAPSULE PO (08:12)
[2019-07-16] MEDS: Acetaminophen 500 MG Tablet 1000 MG PO ×2 (08:15→23:17)
[2019-07-16 16:00] VITALS: BP 127/72; PULSE 84; RESP 18; TEMP 36.9; O2SAT 94
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
[2019-07-17] MEDS: Acetaminophen 500 MG Tablet 1000 MG PO ×3 (06:23→23:01)
[2019-07-17] MEDS: Enoxaparin 40 MG/0.4 ML Syringe SC (06:24)
[2019-07-17] MEDS: Fluconazole 100 MG Tablet 200 MG PO (06:24)
[2019-07-17] MEDS: Pantoprazole Sodium 20 MG Tablet PO (06:24)
[2019-07-17] MEDS: Senna/Docusate Sodium 1 Tablet 2 TABLET PO (06:24)
[2019-07-17] MEDS: Nystatin Powder 15gm Bottle 1 APPLIC TOPICAL ×2 (06:25→21:40)
[2019-07-17] MEDS: Menthol/Lanolin/Calamine/Znox 113 GM Tube 1 APPLIC TOPICAL ×2 (06:26→21:41)
[2019-07-17] MEDS: Amiodarone 200 MG Tablet PO (08:03)
[2019-07-17] MEDS: Iron Polysaccharide Complex 150 MG CAPSULE PO (08:03)
[2019-07-17 16:00] VITALS: BP 127/68; PULSE 77; RESP 18; TEMP 36.7; O2SAT 96
[2019-07-18] MEDS: Fluconazole 100 MG Tablet 200 MG PO (05:36)
[2019-07-18] MEDS: Senna/Docusate Sodium 1 Tablet 2 TABLET PO (05:36)
[2019-07-18] MEDS: Pantoprazole Sodium 20 MG Tablet PO (05:36)
[2019-07-18] MEDS: Enoxaparin 40 MG/0.4 ML Syringe SC (05:37)
[2019-07-18] MEDS: Menthol/Lanolin/Calamine/Znox 113 GM Tube 1 APPLIC TOPICAL ×2 (05:43→22:33)
[2019-07-18] MEDS: Nystatin Powder 15gm Bottle 1 APPLIC TOPICAL ×2 (05:45→22:33)
[2019-07-18] MEDS: Iron Polysaccharide Complex 150 MG CAPSULE PO (08:37)
[2019-07-18] MEDS: Amiodarone 200 MG Tablet PO (08:37)
[2019-07-18] MEDS: Acetaminophen 500 MG Tablet 1000 MG PO ×3 (10:25→23:40)
[2019-07-18 15:49] VITALS: BP 133/72; PULSE 62; RESP 18; TEMP 37.7; O2SAT 100
[2019-07-19] MEDS: Enoxaparin 40 MG/0.4 ML Syringe SC (05:56)
[2019-07-19] MEDS: Senna/Docusate Sodium 1 Tablet 2 TABLET PO (05:56)
[2019-07-19] MEDS: Pantoprazole Sodium 20 MG Tablet PO (05:57)
[2019-07-19] MEDS: Menthol/Lanolin/Calamine/Znox 113 GM Tube 1 APPLIC TOPICAL ×2 (05:57→21:14)
[2019-07-19] MEDS: Fluconazole 100 MG Tablet 200 MG PO (05:57)
[2019-07-19] MEDS: Nystatin Powder 15gm Bottle 1 APPLIC TOPICAL ×2 (05:57→21:14)
[2019-07-19] MEDS: Amiodarone 200 MG Tablet PO (08:10)
[2019-07-19] MEDS: Iron Polysaccharide Complex 150 MG CAPSULE PO (08:10)
[2019-07-19] MEDS: Acetaminophen 500 MG Tablet 1000 MG PO ×2 (14:48→21:12)
[2019-07-19 16:00] VITALS: BP 126/72; PULSE 82; RESP 18; TEMP 37.2; O2SAT 97
[2019-07-20] MEDS: Fluconazole 100 MG Tablet 200 MG PO (03:42)
[2019-07-20] MEDS: Senna/Docusate Sodium 1 Tablet 2 TABLET PO (03:42)
[2019-07-20] MEDS: Pantoprazole Sodium 20 MG Tablet PO (03:42)
[2019-07-20] MEDS: Enoxaparin 40 MG/0.4 ML Syringe SC (03:43)
[2019-07-20] MEDS: Nystatin Powder 15gm Bottle 1 APPLIC TOPICAL ×2 (03:45→19:37)
[2019-07-20] MEDS: Menthol/Lanolin/Calamine/Znox 113 GM Tube 1 APPLIC TOPICAL ×2 (03:45→19:37)
[2019-07-20] MEDS: Acetaminophen 500 MG Tablet 1000 MG PO ×3 (07:19→19:40)
[2019-07-20] MEDS: Iron Polysaccharide Complex 150 MG CAPSULE PO (08:04)
[2019-07-20] MEDS: Amiodarone 200 MG Tablet PO (08:04)
--- NOTE | 2019-07-20 08:40 | NURSING ---
Addendum entered by Esther Hollingsworth 07/20/19 11:54: Pt returned from appt, new orders for labs today and on 08/03/19 and another xray of hip & knee PA & Lateral. Original Note: pt off unit to Dr Brewster office for 2nd opinion
[2019-07-20 12:42] LABS: Erythrocyte Sedimentation Rate 32 mm/hr (0-20)
[2019-07-20 12:44] LABS: Absolute Lymphocyte Count 1.32 X10^3/uL (0.83-4.51); Absolute Neutrophil Count 4.8 X10^3/uL (2.0-7.7); Basophil# 0.05 X10^3/uL; Basophil% 0.7 % (0-1); Eosinophil# 0.26 X10^3/uL; Eosinophils% 3.7 % (0-5); Hematocrit 30.9 % (40-54); Hemoglobin 9.6 g/dL (13.0-16.5); Lymphocyte # 1.32 X10^3/ul (4.0); Lymphocyte % 18.8 % (19-41); Mean Corp Hgb Conc 31.1 g/dL (32-36); Mean Corpuscular Hgb 30.1 pg (27.0-32.0); Mean Corpuscular Volume 96.9 fL (80-94); Mean Platelet Vol. 9.1 fl (6.2-12.0); Monocyte% 7.1 % (0-10); NRBC Flagged by Analyzer 0 % (0-5); Neutrophil # 4.81 X10^3/uL (2.7-7.7); Neutrophil % 68.4 % (47-70); POSITIVE MORPHOLOGY YES; Platelet Count 341 K/mm3 (150-450); RBC Distribution Width SD 66.7 fl (35.1-43.9); Red Blood Count 3.19 M/mm3 (4.6-6.2)
--- NOTE | 2019-07-20 12:50 | RAD_ITS ---
STUDY: X-RAY - LEFT FEMUR REASON FOR STUDY: Male, 84 years old. RECENT SURGERY F/U TECHNIQUE: 2 view(s) of the femur. COMPARISON: None. FINDINGS: There is a dislocated appearance of the left hip joint. There is an an homogeneous appearance of the sclerotic bone that is fixed by cortical screws and an intramedullary shanta in the left proximal femur there is a left knee arthroplasty. Findings are similar to the prior study July 13, 2019. RAD/Femur Min 2 Views IMPRESSION: Persistent dislocation of the left femur from the left hip. No significant change since July 13, 2019. Electronically Signed: Ethel Hernandez MD at 17:52 EST Tel , Service support ,
[2019-07-20 12:54] LABS: Differential Indicated SCAN CRITERIA MET
[2019-07-20 13:24] LABS: Anisocytosis 1+; Platelet Estimate ADEQUATE (ADEQ); Red Cell Morphology N CHROM NORMAL (NORM C&C)
[2019-07-20 16:00] VITALS: BP 140/70; PULSE 77; RESP 17; TEMP 36.7; O2SAT 92
[2019-07-21] MEDS: Menthol/Lanolin/Calamine/Znox 113 GM Tube 1 APPLIC TOPICAL ×2 (05:39→22:07)
[2019-07-21] MEDS: Acetaminophen 500 MG Tablet 1000 MG PO ×3 (05:39→22:17)
[2019-07-21] MEDS: Senna/Docusate Sodium 1 Tablet 2 TABLET PO (05:39)
[2019-07-21] MEDS: Nystatin Powder 15gm Bottle 1 APPLIC TOPICAL ×2 (05:39→22:06)
[2019-07-21] MEDS: Enoxaparin 40 MG/0.4 ML Syringe SC (05:40)
[2019-07-21] MEDS: Pantoprazole Sodium 20 MG Tablet PO (05:40)
[2019-07-21] MEDS: Amiodarone 200 MG Tablet PO (07:47)
[2019-07-21] MEDS: Iron Polysaccharide Complex 150 MG CAPSULE PO (07:47)
[2019-07-21 16:00] VITALS: BP 135/79; PULSE 77; RESP 20; TEMP 36.5; O2SAT 99
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
[2019-07-22] MEDS: Senna/Docusate Sodium 1 Tablet 2 TABLET PO ×2 (05:38→17:27)
[2019-07-22] MEDS: Pantoprazole Sodium 20 MG Tablet PO (05:39)
[2019-07-22] MEDS: Enoxaparin 40 MG/0.4 ML Syringe SC (05:39)
[2019-07-22] MEDS: Menthol/Lanolin/Calamine/Znox 113 GM Tube 1 APPLIC TOPICAL ×2 (05:45→21:09)
[2019-07-22] MEDS: Nystatin Powder 15gm Bottle 1 APPLIC TOPICAL ×2 (05:46→21:09)
[2019-07-22] MEDS: Amiodarone 200 MG Tablet PO (07:59)
[2019-07-22] MEDS: Iron Polysaccharide Complex 150 MG CAPSULE PO (07:59)
[2019-07-22] MEDS: Acetaminophen 500 MG Tablet 1000 MG PO ×2 (08:02→22:19)
[2019-07-22 16:00] VITALS: BP 124/70; PULSE 81; RESP 18; TEMP 37.2; O2SAT 94
[2019-07-23] MEDS: Senna/Docusate Sodium 1 Tablet 2 TABLET PO (05:20)
[2019-07-23] MEDS: Enoxaparin 40 MG/0.4 ML Syringe SC (05:20)
[2019-07-23] MEDS: Pantoprazole Sodium 20 MG Tablet PO (05:20)
[2019-07-23] MEDS: Nystatin Powder 15gm Bottle 1 APPLIC TOPICAL ×2 (05:21→21:17)
[2019-07-23] MEDS: Menthol/Lanolin/Calamine/Znox 113 GM Tube 1 APPLIC TOPICAL ×2 (05:21→21:17)
[2019-07-23] MEDS: Iron Polysaccharide Complex 150 MG CAPSULE PO (07:53)
[2019-07-23] MEDS: Amiodarone 200 MG Tablet PO (07:53)
[2019-07-23] MEDS: Acetaminophen 500 MG Tablet 1000 MG PO ×2 (10:55→22:29)
[2019-07-23 15:36] VITALS: BP 125/62; PULSE 79; RESP 17; TEMP 37; O2SAT 96
[2019-07-24] MEDS: Enoxaparin 40 MG/0.4 ML Syringe SC (05:39)
[2019-07-24] MEDS: Menthol/Lanolin/Calamine/Znox 113 GM Tube 1 APPLIC TOPICAL ×2 (05:39→20:09)
[2019-07-24] MEDS: Nystatin Powder 15gm Bottle 1 APPLIC TOPICAL ×2 (05:39→20:10)
[2019-07-24] MEDS: Pantoprazole Sodium 20 MG Tablet PO (05:39)
[2019-07-24] MEDS: Senna/Docusate Sodium 1 Tablet 2 TABLET PO (05:40)
[2019-07-24] MEDS: Amiodarone 200 MG Tablet PO (08:38)
[2019-07-24] MEDS: Iron Polysaccharide Complex 150 MG CAPSULE PO (08:38)
[2019-07-24] MEDS: Acetaminophen 500 MG Tablet 1000 MG PO ×2 (14:05→20:09)
[2019-07-24 15:31] VITALS: BP 132/81; PULSE 76; RESP 18; TEMP 36.8; O2SAT 97
[2019-07-25] MEDS: Acetaminophen 500 MG Tablet 1000 MG PO ×2 (05:50→19:32)
[2019-07-25] MEDS: Pantoprazole Sodium 20 MG Tablet PO (05:50)
[2019-07-25] MEDS: Menthol/Lanolin/Calamine/Znox 113 GM Tube 1 APPLIC TOPICAL ×2 (05:51→19:34)
[2019-07-25] MEDS: Nystatin Powder 15gm Bottle 1 APPLIC TOPICAL ×2 (05:51→19:34)
[2019-07-25] MEDS: Senna/Docusate Sodium 1 Tablet 2 TABLET PO (05:51)
[2019-07-25] MEDS: Enoxaparin 40 MG/0.4 ML Syringe SC (05:51)
[2019-07-25] MEDS: Iron Polysaccharide Complex 150 MG CAPSULE PO (08:08)
[2019-07-25] MEDS: Amiodarone 200 MG Tablet PO (08:08)
[2019-07-25 15:10] VITALS: BP 135/86; PULSE 81; RESP 24; TEMP 36.6; O2SAT 96
[2019-07-26] MEDS: Acetaminophen 500 MG Tablet 1000 MG PO ×3 (05:30→22:27)
[2019-07-26] MEDS: Enoxaparin 40 MG/0.4 ML Syringe SC (05:31)
[2019-07-26] MEDS: Senna/Docusate Sodium 1 Tablet 2 TABLET PO (05:31)
[2019-07-26] MEDS: Pantoprazole Sodium 20 MG Tablet PO (05:31)
[2019-07-26] MEDS: Nystatin Powder 15gm Bottle 1 APPLIC TOPICAL ×2 (05:37→20:20)
[2019-07-26] MEDS: Menthol/Lanolin/Calamine/Znox 113 GM Tube 1 APPLIC TOPICAL ×2 (05:37→20:20)
[2019-07-26] MEDS: Amiodarone 200 MG Tablet PO (07:30)
[2019-07-26] MEDS: Iron Polysaccharide Complex 150 MG CAPSULE PO (07:30)
[2019-07-26 15:06] VITALS: BP 154/72; PULSE 73; RESP 24; TEMP 36.4; O2SAT 98
[2019-07-27] MEDS: Menthol/Lanolin/Calamine/Znox 113 GM Tube 1 APPLIC TOPICAL ×2 (05:24→21:57)
[2019-07-27] MEDS: Senna/Docusate Sodium 1 Tablet 2 TABLET PO (05:24)
[2019-07-27] MEDS: Pantoprazole Sodium 20 MG Tablet PO (05:24)
[2019-07-27] MEDS: Nystatin Powder 15gm Bottle 1 APPLIC TOPICAL ×2 (05:24→21:57)
[2019-07-27] MEDS: Enoxaparin 40 MG/0.4 ML Syringe SC (05:25)
[2019-07-27] MEDS: Acetaminophen 500 MG Tablet 1000 MG PO ×3 (05:25→23:34)
[2019-07-27] MEDS: Amiodarone 200 MG Tablet PO (07:58)
[2019-07-27] MEDS: Iron Polysaccharide Complex 150 MG CAPSULE PO (07:58)
[2019-07-27 16:00] VITALS: BP 115/66; PULSE 75; RESP 18; TEMP 36.9; O2SAT 94
[2019-07-28] MEDS: Menthol/Lanolin/Calamine/Znox 113 GM Tube 1 APPLIC TOPICAL ×2 (05:40→20:53)
[2019-07-28] MEDS: Pantoprazole Sodium 20 MG Tablet PO (05:41)
[2019-07-28] MEDS: Senna/Docusate Sodium 1 Tablet 2 TABLET PO (05:41)
[2019-07-28] MEDS: Enoxaparin 40 MG/0.4 ML Syringe SC (05:41)
[2019-07-28] MEDS: Nystatin Powder 15gm Bottle 1 APPLIC TOPICAL ×2 (05:41→20:53)
[2019-07-28] MEDS: Iron Polysaccharide Complex 150 MG CAPSULE PO (07:59)
[2019-07-28] MEDS: Amiodarone 200 MG Tablet PO (07:59)
--- NOTE | 2019-07-28 11:33 | NURSING ---
Resident states that he has canceled appointment with Dr Feliciano today and wants to see Dr Collado again to see about scheduling an operation through him. He saw Dr Collado last week at an appointment. Dr Brewster office called to update them on patients wishes. They state Dr Collado is out of the office this week but they will leave a message for him and they will call us back next week.
--- NOTE | 2019-07-28 14:10 | CASEMGMT ---
Social Work Spoke with patient and about pt's current status and DC plans. Pt cancelled appt with Orthopaedic Oncologist on this date and stated would be calling Dr. Collado to schedule amputation surgery and would remain in TCU until surgery is scheduled. Discussed finances, private pay, pros and cons of remaining in TCU vs SNF. Family would like pt to transfer to SNF, but pt is adamant on remaining in TCU and states he has the funds to do so. Will continue to follow. Sherrie Curtis, LEAD FURNACE OPERATOR PNEUMATIC TUBE FITTER
[2019-07-28 15:56] VITALS: BP 125/70; PULSE 74; RESP 16; TEMP 36.6; O2SAT 96
[2019-07-28] MEDS: Acetaminophen 500 MG Tablet 1000 MG PO (20:52)
[2019-07-29] MEDS: Senna/Docusate Sodium 1 Tablet 2 TABLET PO (05:36)
[2019-07-29] MEDS: Pantoprazole Sodium 20 MG Tablet PO (05:36)
[2019-07-29] MEDS: Acetaminophen 500 MG Tablet 1000 MG PO ×2 (05:36→22:05)
[2019-07-29] MEDS: Enoxaparin 40 MG/0.4 ML Syringe SC (05:36)
[2019-07-29] MEDS: Nystatin Powder 15gm Bottle 1 APPLIC TOPICAL ×2 (05:38→20:15)
[2019-07-29] MEDS: Menthol/Lanolin/Calamine/Znox 113 GM Tube 1 APPLIC TOPICAL ×2 (05:38→20:15)
[2019-07-29] MEDS: Amiodarone 200 MG Tablet PO (08:24)
[2019-07-29] MEDS: Iron Polysaccharide Complex 150 MG CAPSULE PO (08:24)
[2019-07-29 16:00] VITALS: BP 125/67; PULSE 72; RESP 16; TEMP 37.2; O2SAT 96
[2019-07-29 20:18] VITALS: O2SAT 98
[2019-07-30] MEDS: Pantoprazole Sodium 20 MG Tablet PO (05:36)
[2019-07-30] MEDS: Senna/Docusate Sodium 1 Tablet 2 TABLET PO (05:36)
[2019-07-30] MEDS: Enoxaparin 40 MG/0.4 ML Syringe SC (05:36)
[2019-07-30] MEDS: Acetaminophen 500 MG Tablet 1000 MG PO ×2 (05:39→21:30)
[2019-07-30] MEDS: Menthol/Lanolin/Calamine/Znox 113 GM Tube 1 APPLIC TOPICAL ×2 (05:41→19:51)
[2019-07-30] MEDS: Nystatin Powder 15gm Bottle 1 APPLIC TOPICAL ×2 (05:41→19:51)
[2019-07-30] MEDS: Amiodarone 200 MG Tablet PO (08:08)
[2019-07-30] MEDS: Iron Polysaccharide Complex 150 MG CAPSULE PO (08:08)
[2019-07-30 15:36] VITALS: BP 115/68; PULSE 75; RESP 24; TEMP 36.9; O2SAT 95
[2019-07-31] MEDS: Pantoprazole Sodium 20 MG Tablet PO (06:13)
[2019-07-31] MEDS: Enoxaparin 40 MG/0.4 ML Syringe SC (06:13)
[2019-07-31] MEDS: Acetaminophen 500 MG Tablet 1000 MG PO ×2 (06:13→20:53)
[2019-07-31] MEDS: Senna/Docusate Sodium 1 Tablet 2 TABLET PO (06:13)
[2019-07-31] MEDS: Nystatin Powder 15gm Bottle 1 APPLIC TOPICAL ×2 (06:14→20:55)
[2019-07-31] MEDS: Menthol/Lanolin/Calamine/Znox 113 GM Tube 1 APPLIC TOPICAL ×2 (06:14→20:55)
[2019-07-31] MEDS: Amiodarone 200 MG Tablet PO (08:01)
[2019-07-31] MEDS: Iron Polysaccharide Complex 150 MG CAPSULE PO (08:01)
[2019-07-31 16:00] VITALS: BP 117/71; PULSE 72; RESP 22; TEMP 36.4; O2SAT 98
[2019-08-01] MEDS: Senna/Docusate Sodium 1 Tablet 2 TABLET PO (05:44)
[2019-08-01] MEDS: Pantoprazole Sodium 20 MG Tablet PO (05:44)
[2019-08-01] MEDS: Enoxaparin 40 MG/0.4 ML Syringe SC (05:44)
[2019-08-01] MEDS: Menthol/Lanolin/Calamine/Znox 113 GM Tube 1 APPLIC TOPICAL ×2 (05:48→20:15)
[2019-08-01] MEDS: Nystatin Powder 15gm Bottle 1 APPLIC TOPICAL ×2 (05:48→20:16)
[2019-08-01] MEDS: Acetaminophen 500 MG Tablet 1000 MG PO ×3 (06:17→21:43)
[2019-08-01] MEDS: Amiodarone 200 MG Tablet PO (08:20)
[2019-08-01] MEDS: Iron Polysaccharide Complex 150 MG CAPSULE PO (08:20)
[2019-08-01 15:51] VITALS: BP 109/60; PULSE 59; RESP 17; TEMP 36.4; O2SAT 96
[2019-08-02] MEDS: Senna/Docusate Sodium 1 Tablet 2 TABLET PO (06:09)
[2019-08-02] MEDS: Nystatin Powder 15gm Bottle 1 APPLIC TOPICAL ×2 (06:09→20:21)
[2019-08-02] MEDS: Enoxaparin 40 MG/0.4 ML Syringe SC (06:09)
[2019-08-02] MEDS: Pantoprazole Sodium 20 MG Tablet PO (06:09)
[2019-08-02] MEDS: Menthol/Lanolin/Calamine/Znox 113 GM Tube 1 APPLIC TOPICAL ×2 (06:09→20:21)
[2019-08-02] MEDS: Iron Polysaccharide Complex 150 MG CAPSULE PO (07:53)
[2019-08-02] MEDS: Amiodarone 200 MG Tablet PO (07:53)
[2019-08-02] MEDS: Acetaminophen 500 MG Tablet 1000 MG PO ×3 (10:28→23:11)
[2019-08-02 16:00] VITALS: BP 120/58; PULSE 72; RESP 17; TEMP 36.9; O2SAT 96
[2019-08-03] MEDS: Enoxaparin 40 MG/0.4 ML Syringe SC (05:55)
[2019-08-03] MEDS: Senna/Docusate Sodium 1 Tablet 2 TABLET PO (05:55)
[2019-08-03] MEDS: Pantoprazole Sodium 20 MG Tablet PO (05:55)
[2019-08-03] MEDS: Acetaminophen 500 MG Tablet 1000 MG PO ×2 (05:55→22:33)
[2019-08-03 05:58] LABS: Absolute Lymphocyte Count 1.42 X10^3/uL (0.83-4.51); Absolute Neutrophil Count 3.2 X10^3/uL (2.0-7.7); Basophil# 0.05 X10^3/uL; Basophil% 0.8 % (0-1); Eosinophils% 5.1 % (0-5); Hematocrit 29.3 % (40-54); Hemoglobin 8.9 g/dL (13.0-16.5); Lymphocyte # 1.42 X10^3/ul (4.0); Lymphocyte % 24.1 % (19-41); Mean Corp Hgb Conc 30.4 g/dL (32-36); Mean Corpuscular Volume 95.4 fL (80-94); Mean Platelet Vol. 9.3 fl (6.2-12.0); Monocyte# 0.82 X10^3/uL; Monocyte% 13.9 % (0-10); NRBC Flagged by Analyzer 0 % (0-5); Neutrophil # 3.23 X10^3/uL (2.7-7.7); Neutrophil % 54.7 % (47-70); Platelet Count 297 K/mm3 (150-450); RBC Distribution Width CV 18.5 % (11.6-14.6); RBC Distribution Width SD 64.4 fl (35.1-43.9); Red Blood Count 3.07 M/mm3 (4.6-6.2); White Blood Count 5.9 K/mm3 (4.4-11.0)
[2019-08-03] MEDS: Menthol/Lanolin/Calamine/Znox 113 GM Tube 1 APPLIC TOPICAL ×2 (06:00→21:07)
[2019-08-03] MEDS: Nystatin Powder 15gm Bottle 1 APPLIC TOPICAL ×2 (06:00→21:08)
[2019-08-03 06:34] VITALS: O2SAT 97
[2019-08-03 06:56] LABS: Erythrocyte Sedimentation Rate 81 mm/hr (0-20)
[2019-08-03] MEDS: Amiodarone 200 MG Tablet PO (07:45)
[2019-08-03] MEDS: Iron Polysaccharide Complex 150 MG CAPSULE PO (07:47)
[2019-08-03 16:00] VITALS: BP 128/68; PULSE 74; RESP 18; TEMP 36.6; O2SAT 96
[2019-08-04] MEDS: Senna/Docusate Sodium 1 Tablet 2 TABLET PO (06:24)
[2019-08-04] MEDS: Enoxaparin 40 MG/0.4 ML Syringe SC (06:24)
[2019-08-04] MEDS: Acetaminophen 500 MG Tablet 1000 MG PO ×3 (06:24→23:15)
[2019-08-04] MEDS: Pantoprazole Sodium 20 MG Tablet PO (06:24)
[2019-08-04] MEDS: Nystatin Powder 15gm Bottle 1 APPLIC TOPICAL ×2 (06:29→20:02)
[2019-08-04] MEDS: Menthol/Lanolin/Calamine/Znox 113 GM Tube 1 APPLIC TOPICAL ×2 (06:29→20:02)
[2019-08-04] MEDS: Iron Polysaccharide Complex 150 MG CAPSULE PO (08:15)
[2019-08-04] MEDS: Amiodarone 200 MG Tablet PO (08:15)
[2019-08-04 15:17] VITALS: BP 131/68; PULSE 73; RESP 22; TEMP 36.9; O2SAT 97
[2019-08-05] MEDS: Acetaminophen 500 MG Tablet 1000 MG PO ×2 (06:08→22:06)
[2019-08-05] MEDS: Enoxaparin 40 MG/0.4 ML Syringe SC (06:08)
[2019-08-05] MEDS: Pantoprazole Sodium 20 MG Tablet PO (06:08)
[2019-08-05] MEDS: Senna/Docusate Sodium 1 Tablet 2 TABLET PO (06:08)
[2019-08-05] MEDS: Nystatin Powder 15gm Bottle 1 APPLIC TOPICAL ×2 (06:10→20:43)
[2019-08-05] MEDS: Menthol/Lanolin/Calamine/Znox 113 GM Tube 1 APPLIC TOPICAL ×2 (06:10→20:44)
[2019-08-05] MEDS: Amiodarone 200 MG Tablet PO (08:41)
[2019-08-05] MEDS: Iron Polysaccharide Complex 150 MG CAPSULE PO (08:41)
[2019-08-05 16:00] VITALS: BP 124/59; PULSE 69; RESP 16; TEMP 36.3; O2SAT 97
--- NOTE | 2019-08-05 16:05 | CHAPLAIN ---
Type of Pastoral Visit ___ Initial Visit _x__ Follow-up Visit ___ On-call Visit ___ General Patient Visit ___ Spiritual Assessment ___ Family Conference ___ Bereavement ___ Rapid Response ___ Code Blue ___ Other (describe below) Pastoral Care Referral From _x__ Patient ___ Family ___ Nurse ___ Physician ___ Economics Teacher ___ Garment Fitter ___ Other (describe below) Sacrament/Intervention _x__ Active listening ___ Anointing ___ Oriental Orthodox ___ Bereavement ___ Communion ___ Gissell exploration ___ ___ Life review ___ Prayer ___ Reconciliation ___ Sacrament of Sick ___ Supportive presence ___ Wedding ___ Other (describe below) Pastoral Comments patient details updates about his medical situation
[2019-08-06] MEDS: Nystatin Powder 15gm Bottle 1 APPLIC TOPICAL ×2 (05:16→19:45)
[2019-08-06] MEDS: Pantoprazole Sodium 20 MG Tablet PO (05:16)
[2019-08-06] MEDS: Menthol/Lanolin/Calamine/Znox 113 GM Tube 1 APPLIC TOPICAL ×2 (05:16→19:45)
[2019-08-06] MEDS: Enoxaparin 40 MG/0.4 ML Syringe SC (05:16)
[2019-08-06] MEDS: Senna/Docusate Sodium 1 Tablet 2 TABLET PO (05:16)
[2019-08-06] MEDS: Iron Polysaccharide Complex 150 MG CAPSULE PO (08:02)
[2019-08-06] MEDS: Amiodarone 200 MG Tablet PO (08:02)
[2019-08-06 10:00] VITALS: RESP 18
--- NOTE | 2019-08-06 10:13 | NURSING ---
Addendum entered by Esther Hollingsworth 08/06/19 14:11: he wants it done on 08/10/19 Addendum entered by Esther Hollingsworth 08/06/19 14:07: Dr Collado office returned call regarding pt to have ultrasound guided Lt therapeutic thoracentesis & CBC/PT/PTT. Original Note: message left with Dr Brewster office regarding for possible surgery to LT hip, awaiting return call.
--- NOTE | 2019-08-06 14:07 | NURSING ---
Dr noel faxed orders for cultures by aspiration via ultrasound.
[2019-08-06 16:00] VITALS: BP 122/63; PULSE 69; RESP 18; TEMP 37.1; O2SAT 91
[2019-08-06] MEDS: Acetaminophen 500 MG Tablet 1000 MG PO (21:52)
[2019-08-07] MEDS: Senna/Docusate Sodium 1 Tablet 2 TABLET PO (06:07)
[2019-08-07] MEDS: Pantoprazole Sodium 20 MG Tablet PO (06:07)
[2019-08-07] MEDS: Acetaminophen 500 MG Tablet 1000 MG PO ×2 (06:07→21:25)
[2019-08-07] MEDS: Enoxaparin 40 MG/0.4 ML Syringe SC (06:07)
[2019-08-07] MEDS: Nystatin Powder 15gm Bottle 1 APPLIC TOPICAL ×2 (06:11→21:30)
[2019-08-07] MEDS: Menthol/Lanolin/Calamine/Znox 113 GM Tube 1 APPLIC TOPICAL ×2 (06:12→21:30)
[2019-08-07] MEDS: Iron Polysaccharide Complex 150 MG CAPSULE PO (07:41)
[2019-08-07] MEDS: Amiodarone 200 MG Tablet PO (07:41)
--- NOTE | 2019-08-07 07:47 | NURSING ---
pt leaving for appt at 0800 this morning, daughter here, pt eating brkfst
--- NOTE | 2019-08-07 08:17 | NURSING ---
pt off unit with transport, daughter at side and .
[2019-08-07 15:24] VITALS: BP 119/70; PULSE 75; RESP 17; TEMP 37.2; O2SAT 93
[2019-08-08] MEDS: Menthol/Lanolin/Calamine/Znox 113 GM Tube 1 APPLIC TOPICAL ×2 (05:57→21:29)
[2019-08-08] MEDS: Nystatin Powder 15gm Bottle 1 APPLIC TOPICAL ×2 (05:58→21:28)
[2019-08-08] MEDS: Senna/Docusate Sodium 1 Tablet 2 TABLET PO (05:58)
[2019-08-08] MEDS: Enoxaparin 40 MG/0.4 ML Syringe SC (05:58)
[2019-08-08] MEDS: Pantoprazole Sodium 20 MG Tablet PO (05:58)
[2019-08-08] MEDS: Iron Polysaccharide Complex 150 MG CAPSULE PO (09:05)
[2019-08-08] MEDS: Amiodarone 200 MG Tablet PO (09:05)
[2019-08-08 10:00] VITALS: RESP 16
[2019-08-08 14:29] VITALS: BP 116/56; PULSE 72; RESP 16; TEMP 36.6; O2SAT 95
[2019-08-08] MEDS: Acetaminophen 500 MG Tablet 1000 MG PO (21:32)
[2019-08-09] MEDS: Nystatin Powder 15gm Bottle 1 APPLIC TOPICAL ×2 (06:50→21:19)
[2019-08-09] MEDS: Pantoprazole Sodium 20 MG Tablet PO (06:50)
[2019-08-09] MEDS: Enoxaparin 40 MG/0.4 ML Syringe SC (06:50)
[2019-08-09] MEDS: Senna/Docusate Sodium 1 Tablet 2 TABLET PO (06:50)
[2019-08-09] MEDS: Menthol/Lanolin/Calamine/Znox 113 GM Tube 1 APPLIC TOPICAL ×2 (06:51→21:18)
[2019-08-09] MEDS: Amiodarone 200 MG Tablet PO (08:35)
[2019-08-09] MEDS: Iron Polysaccharide Complex 150 MG CAPSULE PO (08:35)
[2019-08-09 15:48] VITALS: BP 132/69; PULSE 67; RESP 16; TEMP 36.6; O2SAT 96
[2019-08-09] MEDS: Acetaminophen 500 MG Tablet 1000 MG PO (21:21)
[2019-08-10] MEDS: Senna/Docusate Sodium 1 Tablet 2 TABLET PO (05:56)
[2019-08-10] MEDS: Pantoprazole Sodium 20 MG Tablet PO (05:57)
[2019-08-10] MEDS: Menthol/Lanolin/Calamine/Znox 113 GM Tube 1 APPLIC TOPICAL ×2 (05:58→21:37)
[2019-08-10] MEDS: Nystatin Powder 15gm Bottle 1 APPLIC TOPICAL ×2 (05:58→21:37)
[2019-08-10] MEDS: Iron Polysaccharide Complex 150 MG CAPSULE PO (09:21)
[2019-08-10] MEDS: Amiodarone 200 MG Tablet PO (09:21)
--- NOTE | 2019-08-10 10:18 | NURSING ---
pt returned form ct scan. denies pain
[2019-08-10 16:00] VITALS: BP 103/73; PULSE 76; RESP 16; TEMP 36.8; O2SAT 94
[2019-08-10] MEDS: Acetaminophen 500 MG Tablet 1000 MG PO (21:33)
[2019-08-11] MEDS: Senna/Docusate Sodium 1 Tablet 2 TABLET PO (05:16)
[2019-08-11] MEDS: Enoxaparin 40 MG/0.4 ML Syringe SC (05:16)
[2019-08-11] MEDS: Pantoprazole Sodium 20 MG Tablet PO (05:16)
[2019-08-11] MEDS: Menthol/Lanolin/Calamine/Znox 113 GM Tube 1 APPLIC TOPICAL ×2 (05:16→22:12)
[2019-08-11] MEDS: Nystatin Powder 15gm Bottle 1 APPLIC TOPICAL ×2 (05:17→22:12)
[2019-08-11] MEDS: Iron Polysaccharide Complex 150 MG CAPSULE PO (07:57)
[2019-08-11] MEDS: Amiodarone 200 MG Tablet PO (07:57)
--- NOTE | 2019-08-11 13:40 | NURSING ---
notified Dr noel office regarding future plans for surgery or something else,awaiting on return call
[2019-08-11 16:00] VITALS: BP 118/55; PULSE 74; RESP 17; TEMP 36.7; O2SAT 94
[2019-08-11] MEDS: Acetaminophen 500 MG Tablet 1000 MG PO (22:11)
[2019-08-12] MEDS: Menthol/Lanolin/Calamine/Znox 113 GM Tube 1 APPLIC TOPICAL ×2 (05:56→20:44)
[2019-08-12] MEDS: Pantoprazole Sodium 20 MG Tablet PO (05:57)
[2019-08-12] MEDS: Senna/Docusate Sodium 1 Tablet 2 TABLET PO (05:57)
[2019-08-12] MEDS: Enoxaparin 40 MG/0.4 ML Syringe SC (05:57)
[2019-08-12] MEDS: Nystatin Powder 15gm Bottle 1 APPLIC TOPICAL ×2 (05:58→20:44)
[2019-08-12] MEDS: Amiodarone 200 MG Tablet PO (08:15)
[2019-08-12] MEDS: Iron Polysaccharide Complex 150 MG CAPSULE PO (08:15)
--- NOTE | 2019-08-12 09:16 | NURSING ---
spoke with Linda at Dr. Collado's office. Dr. Collado has been in surgery for past couple of days, will be back in office tomorrow, and should have a response
[2019-08-12 15:30] VITALS: BP 121/70; PULSE 72; RESP 18; TEMP 36.6; O2SAT 95
--- NOTE | 2019-08-12 16:10 | CHAPLAIN ---
Type of Pastoral Visit ___ Initial Visit _x__ Follow-up Visit ___ On-call Visit ___ General Patient Visit ___ Spiritual Assessment ___ Family Conference ___ Bereavement ___ Rapid Response ___ Code Blue ___ Other (describe below) Pastoral Care Referral From _x__ Patient ___ Family ___ Nurse ___ Physician ___ Senior Database Engineer ___ Contact Center Engineer ___ Other (describe below) Sacrament/Intervention _x__ Active listening ___ Anointing ___ Alevism ___ Bereavement ___ Communion ___ Gissell exploration ___ _x__ Life review _x__ Prayer ___ Reconciliation ___ Sacrament of Sick ___ Supportive presence ___ Wedding ___ Other (describe below) Pastoral Comments
[2019-08-12] MEDS: Acetaminophen 500 MG Tablet 1000 MG PO (20:48)
[2019-08-13] MEDS: Nystatin Powder 15gm Bottle 1 APPLIC TOPICAL ×2 (05:38→21:46)
[2019-08-13] MEDS: Senna/Docusate Sodium 1 Tablet 2 TABLET PO (05:38)
[2019-08-13] MEDS: Enoxaparin 40 MG/0.4 ML Syringe SC (05:39)
[2019-08-13] MEDS: Menthol/Lanolin/Calamine/Znox 113 GM Tube 1 APPLIC TOPICAL ×2 (05:39→21:47)
[2019-08-13] MEDS: Pantoprazole Sodium 20 MG Tablet PO (05:39)
[2019-08-13] MEDS: Acetaminophen 500 MG Tablet 1000 MG PO ×2 (05:39→21:55)
[2019-08-13] MEDS: Amiodarone 200 MG Tablet PO (07:58)
[2019-08-13] MEDS: Iron Polysaccharide Complex 150 MG CAPSULE PO (07:58)
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
[2019-08-13 16:00] VITALS: BP 120/70; PULSE 70; RESP 18; TEMP 36.5; O2SAT 95
[2019-08-14 05:22] LABS: Absolute Lymphocyte Count 1.35 X10^3/uL (0.83-4.51); Absolute Neutrophil Count 3.3 X10^3/uL (2.0-7.7); Basophil# 0.05 X10^3/uL; Basophil% 0.9 % (0-1); Eosinophils% 5.2 % (0-5); Hematocrit 31.1 % (40-54); Hemoglobin 9.9 g/dL (13.0-16.5); Lymphocyte # 1.35 X10^3/ul (4.0); Lymphocyte % 23.4 % (19-41); Mean Corp Hgb Conc 31.8 g/dL (32-36); Mean Corpuscular Hgb 30.5 pg (27.0-32.0); Mean Corpuscular Volume 95.7 fL (80-94); Mean Platelet Vol. 9.1 fl (6.2-12.0); Monocyte# 0.69 X10^3/uL; NRBC Flagged by Analyzer 0 % (0-5); Neutrophil # 3.34 X10^3/uL (2.7-7.7); Platelet Count 262 K/mm3 (150-450); RBC Distribution Width CV 17.6 % (11.6-14.6); RBC Distribution Width SD 61.7 fl (35.1-43.9); Red Blood Count 3.25 M/mm3 (4.6-6.2); White Blood Count 5.8 K/mm3 (4.4-11.0)
[2019-08-14 05:31] LABS: Prothrombin Time (Protime)PT. 13.3 SECONDS (11.7-14.9)
[2019-08-14 05:58] LABS: Anion Gap 5 (5-15); BUN 17 mg/dL (7-18); BUN/Creat Ratio 18.6 RATIO (10-20); Calcium,Total 8.9 mg/dL (8.5-10.1); Chloride 110 mmol/L (98-107); Creatinine, Serum 0.91 mg/dL (0.70-1.30); EST Glomerular Filtration Rate 84 mL/min (>60); Est Glom Filt Rate - Afr Amer 102 mL/min (>60); Estimated Creatinine Clearance 71.51 ml/min; Glucose 95 mg/dL (74-106); Potassium 4.3 mmol/L (3.5-5.1); Sodium Level 141 mmol/L (136-145)
[2019-08-14] MEDS: Nystatin Powder 15gm Bottle 1 APPLIC TOPICAL ×2 (06:11→19:47)
[2019-08-14] MEDS: Enoxaparin 40 MG/0.4 ML Syringe SC (06:12)
[2019-08-14] MEDS: Pantoprazole Sodium 20 MG Tablet PO (06:12)
[2019-08-14] MEDS: Senna/Docusate Sodium 1 Tablet 2 TABLET PO (06:12)
[2019-08-14] MEDS: Menthol/Lanolin/Calamine/Znox 113 GM Tube 1 APPLIC TOPICAL ×2 (06:18→19:47)
--- NOTE | 2019-08-14 08:30 | EKG12_ITS ---
Test Reason : Blood Pressure : / mmHG Vent. Rate : 068 BPM Atrial Rate : 068 BPM P-R Int : 144 ms QRS Dur : 094 ms QT Int : 428 ms P-R-T Axes : 049 005 056 degrees QTc Int : 455 ms Normal sinus rhythm Nonspecific ST and T wave abnormality Abnormal ECG When compared with ECG of 05-JUN-2019 15:54, No significant change was found Confirmed by YOHANNES HEIN, ROSITA ([id number]), assignment desk editor SHELLEY MORGAN ([id number]) on 08/18/2019 8:37:09 AM Referred By: Hank Henriquez Confirmed By:ROSITA SHEFFIELD MD
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
[2019-08-14] MEDS: Amiodarone 200 MG Tablet PO (08:49)
[2019-08-14] MEDS: Iron Polysaccharide Complex 150 MG CAPSULE PO (08:49)
--- NOTE | 2019-08-14 10:20 | CASEMGMT ---
Addendum entered by Sherrie Curtis 08/14/19 10:29: Spoke with pt and confirmed pt will remain in TCU until surgery private pay. Original Note: Social Work Spoke with nursing whom stated Dr. Collado's office scheduled surgery for pt for 09/23/19. Will follow up with pt. Sherrie Curtis, JING GUZMANW
[2019-08-14 15:32] VITALS: BP 130/74; PULSE 72; RESP 18; TEMP 36.7; O2SAT 96
[2019-08-14] MEDS: Acetaminophen 500 MG Tablet 1000 MG PO (21:35)
[2019-08-15] MEDS: Pantoprazole Sodium 20 MG Tablet PO (05:40)
[2019-08-15] MEDS: Enoxaparin 40 MG/0.4 ML Syringe SC (05:40)
[2019-08-15] MEDS: Senna/Docusate Sodium 1 Tablet 2 TABLET PO (05:40)
[2019-08-15] MEDS: Menthol/Lanolin/Calamine/Znox 113 GM Tube 1 APPLIC TOPICAL ×2 (05:42→19:56)
[2019-08-15] MEDS: Nystatin Powder 15gm Bottle 1 APPLIC TOPICAL ×2 (05:42→19:56)
[2019-08-15] MEDS: Iron Polysaccharide Complex 150 MG CAPSULE PO (07:57)
[2019-08-15] MEDS: Amiodarone 200 MG Tablet PO (07:57)
[2019-08-15] MEDS: Acetaminophen 500 MG Tablet 1000 MG PO ×2 (10:15→21:51)
[2019-08-15 15:25] VITALS: BP 113/60; PULSE 67; RESP 18; TEMP 36.7; O2SAT 98
[2019-08-16] MEDS: Acetaminophen 500 MG Tablet 1000 MG PO ×2 (05:57→22:16)
[2019-08-16] MEDS: Enoxaparin 40 MG/0.4 ML Syringe SC (05:57)
[2019-08-16] MEDS: Pantoprazole Sodium 20 MG Tablet PO (05:58)
[2019-08-16] MEDS: Menthol/Lanolin/Calamine/Znox 113 GM Tube 1 APPLIC TOPICAL ×2 (05:58→19:20)
[2019-08-16] MEDS: Nystatin Powder 15gm Bottle 1 APPLIC TOPICAL ×2 (05:58→19:18)
[2019-08-16] MEDS: Senna/Docusate Sodium 1 Tablet 2 TABLET PO (05:58)
[2019-08-16] MEDS: Amiodarone 200 MG Tablet PO (07:40)
[2019-08-16] MEDS: Iron Polysaccharide Complex 150 MG CAPSULE PO (07:40)
[2019-08-16 14:22] VITALS: BP 120/76; PULSE 84; RESP 20; TEMP 36.8; O2SAT 98
[2019-08-16 20:30] VITALS: PULSE 73
[2019-08-17] MEDS: Menthol/Lanolin/Calamine/Znox 113 GM Tube 1 APPLIC TOPICAL ×3 (06:09→20:15)
[2019-08-17] MEDS: Enoxaparin 40 MG/0.4 ML Syringe SC (06:10)
[2019-08-17] MEDS: Nystatin Powder 15gm Bottle 1 APPLIC TOPICAL ×2 (06:10→20:15)
[2019-08-17] MEDS: Pantoprazole Sodium 20 MG Tablet PO (06:11)
[2019-08-17] MEDS: Senna/Docusate Sodium 1 Tablet 2 TABLET PO (06:11)
[2019-08-17] MEDS: Iron Polysaccharide Complex 150 MG CAPSULE PO (08:10)
[2019-08-17] MEDS: Amiodarone 200 MG Tablet PO (08:10)
[2019-08-17 10:00] VITALS: RESP 18
[2019-08-17 14:31] VITALS: BP 135/75; PULSE 73; RESP 18; TEMP 36.5; O2SAT 97
--- NOTE | 2019-08-17 16:14 | NURSING ---
Per pt's daughter Katalina Hernandez , should pt change his surgical appointment she would like to be made aware as soon as possible.
--- NOTE | 2019-08-17 16:28 | NURSING ---
pt c/o of brace rubbing on Left leg around knee area, (first time pt felt this) this nurse and PT assessed pt in bed, recommended by PT that hip is still moving outward and knee in rotating inward, staff could not adjust leg to fit comfortably, Dr segal was called at this time, left VM with office personal, requesting recommendations or possible move surgery up, awaiting return call ,Dr Henriquez aware, pt in bed, not happy about the new situation
[2019-08-17] MEDS: Acetaminophen 500 MG Tablet 1000 MG PO (22:17)
[2019-08-18] MEDS: Nystatin Powder 15gm Bottle 1 APPLIC TOPICAL ×2 (05:26→21:19)
[2019-08-18] MEDS: Pantoprazole Sodium 20 MG Tablet PO (05:26)
[2019-08-18] MEDS: Senna/Docusate Sodium 1 Tablet 2 TABLET PO (05:26)
[2019-08-18] MEDS: Enoxaparin 40 MG/0.4 ML Syringe SC (05:26)
--- NOTE | 2019-08-18 06:24 | NURSING ---
Addendum entered by Tiffany Sheriff 08/18/19 06:39: 0630- Pt requesting to get OOB into chair. discussed waiting until hearing further instructions from Dr. Collado's office. Pt refusing, states it does not matter what Dr. Collado's office will say, he is getting out of this bed. Original Note: 2100- PT needing to have BM and encouraged to use bedpan due to increased internal rotation of LLE noted and staff awaiting call back from Dr. Collado's office for further instruction. Pt refusing stating he will absolutely not use bedpan and wants to use BSC. Pt up to BSC with 2 assist, no pivoting and NWB LLE.
[2019-08-18] MEDS: Iron Polysaccharide Complex 150 MG CAPSULE PO (08:17)
[2019-08-18] MEDS: Amiodarone 200 MG Tablet PO (08:17)
--- NOTE | 2019-08-18 08:50 | PCA ---
Went into room to get patient out of bed around 615am, i assisted patient with AM care and told patient about the info that was passed onto me during report about how PT was not working with patient until they heard back from the dr. and that patient was advised not to get out of bed until than, patient stated that he was going to get out of bed, DERICK lewis was called into room to explain to patient the reasoning for him being kept in bed, pt still refused to stay in bed
[2019-08-18 15:53] VITALS: BP 118/74; PULSE 70; RESP 18; TEMP 36.3; O2SAT 95
[2019-08-18] MEDS: Menthol/Lanolin/Calamine/Znox 113 GM Tube 1 APPLIC TOPICAL (21:19)
[2019-08-18] MEDS: Acetaminophen 500 MG Tablet 1000 MG PO (21:20)
[2019-08-19] MEDS: Enoxaparin 40 MG/0.4 ML Syringe SC (05:39)
[2019-08-19] MEDS: Menthol/Lanolin/Calamine/Znox 113 GM Tube 1 APPLIC TOPICAL ×2 (05:39→20:09)
[2019-08-19] MEDS: Pantoprazole Sodium 20 MG Tablet PO (05:39)
[2019-08-19] MEDS: Senna/Docusate Sodium 1 Tablet 2 TABLET PO (05:39)
[2019-08-19] MEDS: Nystatin Powder 15gm Bottle 1 APPLIC TOPICAL ×2 (05:41→20:10)
[2019-08-19] MEDS: Iron Polysaccharide Complex 150 MG CAPSULE PO (08:05)
[2019-08-19] MEDS: Amiodarone 200 MG Tablet PO (08:05)
[2019-08-19 08:06] VITALS: BP 128/71; PULSE 78
[2019-08-19 15:50] VITALS: BP 155/83; PULSE 86; RESP 14; TEMP 36.5; O2SAT 92
[2019-08-19] MEDS: Acetaminophen 500 MG Tablet 1000 MG PO (20:10)
[2019-08-20] MEDS: Senna/Docusate Sodium 1 Tablet 2 TABLET PO (04:05)
[2019-08-20] MEDS: Pantoprazole Sodium 20 MG Tablet PO (04:05)
[2019-08-20] MEDS: Enoxaparin 40 MG/0.4 ML Syringe SC (04:06)
[2019-08-20] MEDS: Nystatin Powder 15gm Bottle 1 APPLIC TOPICAL ×2 (04:07→20:33)
[2019-08-20] MEDS: Menthol/Lanolin/Calamine/Znox 113 GM Tube 1 APPLIC TOPICAL ×2 (04:07→20:32)
[2019-08-20] MEDS: Iron Polysaccharide Complex 150 MG CAPSULE PO (08:10)
[2019-08-20] MEDS: Amiodarone 200 MG Tablet PO (08:10)
[2019-08-20 13:33] VITALS: BP 122/59; PULSE 75; RESP 16; TEMP 36.5; O2SAT 94
[2019-08-20] MEDS: Acetaminophen 500 MG Tablet 1000 MG PO ×2 (16:44→22:59)
[2019-08-20] MEDS: Bisacodyl 5 MG Tablet 10 MG PO (22:59)
[2019-08-21] MEDS: Pantoprazole Sodium 20 MG Tablet PO (05:52)
[2019-08-21] MEDS: Acetaminophen 500 MG Tablet 1000 MG PO ×3 (05:52→22:05)
[2019-08-21] MEDS: Enoxaparin 40 MG/0.4 ML Syringe SC (05:52)
[2019-08-21] MEDS: Senna/Docusate Sodium 1 Tablet 2 TABLET PO (05:52)
[2019-08-21] MEDS: Menthol/Lanolin/Calamine/Znox 113 GM Tube 1 APPLIC TOPICAL ×2 (05:53→21:09)
[2019-08-21] MEDS: Nystatin Powder 15gm Bottle 1 APPLIC TOPICAL ×2 (05:53→21:09)
[2019-08-21] MEDS: Iron Polysaccharide Complex 150 MG CAPSULE PO (08:13)
[2019-08-21] MEDS: Amiodarone 200 MG Tablet PO (08:13)
[2019-08-21 14:37] VITALS: BP 132/80; PULSE 74; RESP 20; TEMP 36.9; O2SAT 96
[2019-08-22] MEDS: Nystatin Powder 15gm Bottle 1 APPLIC TOPICAL ×2 (05:58→19:49)
[2019-08-22] MEDS: Pantoprazole Sodium 20 MG Tablet PO (05:59)
[2019-08-22] MEDS: Menthol/Lanolin/Calamine/Znox 113 GM Tube 1 APPLIC TOPICAL ×2 (05:59→19:49)
[2019-08-22] MEDS: Enoxaparin 40 MG/0.4 ML Syringe SC (05:59)
[2019-08-22] MEDS: Senna/Docusate Sodium 1 Tablet 2 TABLET PO (05:59)
[2019-08-22] MEDS: Iron Polysaccharide Complex 150 MG CAPSULE PO (08:13)
[2019-08-22] MEDS: Amiodarone 200 MG Tablet PO (08:13)
[2019-08-22 14:51] VITALS: BP 106/65; PULSE 69; RESP 16; TEMP 36.4; O2SAT 95
[2019-08-23] MEDS: Enoxaparin 40 MG/0.4 ML Syringe SC (05:03)
[2019-08-23] MEDS: Senna/Docusate Sodium 1 Tablet 2 TABLET PO (05:03)
[2019-08-23] MEDS: Pantoprazole Sodium 20 MG Tablet PO (05:04)
[2019-08-23] MEDS: Menthol/Lanolin/Calamine/Znox 113 GM Tube 1 APPLIC TOPICAL ×2 (05:04→20:42)
[2019-08-23] MEDS: Nystatin Powder 15gm Bottle 1 APPLIC TOPICAL ×2 (05:05→20:41)
[2019-08-23] MEDS: Amiodarone 200 MG Tablet PO (07:44)
[2019-08-23] MEDS: Iron Polysaccharide Complex 150 MG CAPSULE PO (07:44)
[2019-08-23 14:46] VITALS: BP 106/70; PULSE 70; RESP 18; TEMP 36.5; O2SAT 96
[2019-08-23] MEDS: Acetaminophen 500 MG Tablet 1000 MG PO (22:11)
[2019-08-24] MEDS: Senna/Docusate Sodium 1 Tablet 2 TABLET PO (05:57)
[2019-08-24] MEDS: Pantoprazole Sodium 20 MG Tablet PO (05:58)
[2019-08-24] MEDS: Enoxaparin 40 MG/0.4 ML Syringe SC (05:58)
[2019-08-24] MEDS: Nystatin Powder 15gm Bottle 1 APPLIC TOPICAL ×2 (05:58→20:15)
[2019-08-24] MEDS: Menthol/Lanolin/Calamine/Znox 113 GM Tube 1 APPLIC TOPICAL ×2 (05:58→20:15)
[2019-08-24] MEDS: Iron Polysaccharide Complex 150 MG CAPSULE PO (08:21)
[2019-08-24] MEDS: Amiodarone 200 MG Tablet PO (08:21)
[2019-08-24 10:00] VITALS: PULSE 74; RESP 16
[2019-08-24 14:35] VITALS: BP 120/68; PULSE 76; RESP 18; TEMP 36.7; O2SAT 95
[2019-08-24] MEDS: Acetaminophen 500 MG Tablet 1000 MG PO (23:14)
[2019-08-25] MEDS: Pantoprazole Sodium 20 MG Tablet PO (06:18)
[2019-08-25] MEDS: Enoxaparin 40 MG/0.4 ML Syringe SC (06:18)
[2019-08-25] MEDS: Senna/Docusate Sodium 1 Tablet 2 TABLET PO (06:18)
[2019-08-25] MEDS: Nystatin Powder 15gm Bottle 1 APPLIC TOPICAL ×2 (06:19→19:48)
[2019-08-25] MEDS: Menthol/Lanolin/Calamine/Znox 113 GM Tube 1 APPLIC TOPICAL ×2 (06:19→19:48)
[2019-08-25] MEDS: Iron Polysaccharide Complex 150 MG CAPSULE PO (08:00)
[2019-08-25] MEDS: Amiodarone 200 MG Tablet PO (08:00)
[2019-08-25 14:17] VITALS: BP 122/74; PULSE 74; RESP 16; TEMP 36.6; O2SAT 95
--- NOTE | 2019-08-25 16:28 | CHAPLAIN ---
chatted in hallway with patient who is out wheeling himself around
[2019-08-25] MEDS: Acetaminophen 500 MG Tablet 1000 MG PO ×2 (16:55→23:28)
[2019-08-26] MEDS: Enoxaparin 40 MG/0.4 ML Syringe SC (05:44)
[2019-08-26] MEDS: Pantoprazole Sodium 20 MG Tablet PO (05:44)
[2019-08-26] MEDS: Senna/Docusate Sodium 1 Tablet 2 TABLET PO (05:44)
[2019-08-26] MEDS: Menthol/Lanolin/Calamine/Znox 113 GM Tube 1 APPLIC TOPICAL ×2 (05:46→21:12)
[2019-08-26] MEDS: Nystatin Powder 15gm Bottle 1 APPLIC TOPICAL ×2 (05:46→21:12)
[2019-08-26] MEDS: Amiodarone 200 MG Tablet PO (09:32)
[2019-08-26] MEDS: Iron Polysaccharide Complex 150 MG CAPSULE PO (09:32)
[2019-08-26 10:00] VITALS: RESP 16; O2SAT 96
[2019-08-26 15:04] VITALS: BP 103/72; PULSE 78; RESP 18; TEMP 36.8; O2SAT 95
[2019-08-26] MEDS: Acetaminophen 500 MG Tablet 1000 MG PO (21:14)
[2019-08-27] MEDS: Nystatin Powder 15gm Bottle 1 APPLIC TOPICAL ×2 (05:39→21:49)
[2019-08-27] MEDS: Pantoprazole Sodium 20 MG Tablet PO (05:39)
[2019-08-27] MEDS: Menthol/Lanolin/Calamine/Znox 113 GM Tube 1 APPLIC TOPICAL ×2 (05:39→21:48)
[2019-08-27] MEDS: Senna/Docusate Sodium 1 Tablet 2 TABLET PO (05:39)
[2019-08-27] MEDS: Enoxaparin 40 MG/0.4 ML Syringe SC (05:39)
[2019-08-27] MEDS: Amiodarone 200 MG Tablet PO (07:50)
[2019-08-27] MEDS: Iron Polysaccharide Complex 150 MG CAPSULE PO (07:50)
[2019-08-27 13:52] VITALS: BP 126/66; PULSE 76; RESP 18; TEMP 36.5; O2SAT 97
[2019-08-28] MEDS: Senna/Docusate Sodium 1 Tablet 2 TABLET PO (06:06)
[2019-08-28] MEDS: Pantoprazole Sodium 20 MG Tablet PO (06:06)
[2019-08-28] MEDS: Nystatin Powder 15gm Bottle 1 APPLIC TOPICAL ×2 (06:06→21:22)
[2019-08-28] MEDS: Menthol/Lanolin/Calamine/Znox 113 GM Tube 1 APPLIC TOPICAL ×2 (06:06→21:22)
[2019-08-28] MEDS: Enoxaparin 40 MG/0.4 ML Syringe SC (06:06)
[2019-08-28] MEDS: Amiodarone 200 MG Tablet PO (08:19)
[2019-08-28] MEDS: Iron Polysaccharide Complex 150 MG CAPSULE PO (08:19)
[2019-08-28 14:03] VITALS: BP 151/75; PULSE 72; RESP 14; TEMP 36.1; O2SAT 94
[2019-08-28] MEDS: Acetaminophen 500 MG Tablet 1000 MG PO (21:20)
[2019-08-29] MEDS: Senna/Docusate Sodium 1 Tablet 2 TABLET PO (05:30)
[2019-08-29] MEDS: Enoxaparin 40 MG/0.4 ML Syringe SC (05:30)
[2019-08-29] MEDS: Pantoprazole Sodium 20 MG Tablet PO (05:30)
[2019-08-29] MEDS: Menthol/Lanolin/Calamine/Znox 113 GM Tube 1 APPLIC TOPICAL ×2 (05:31→20:35)
[2019-08-29] MEDS: Nystatin Powder 15gm Bottle 1 APPLIC TOPICAL ×2 (05:31→20:33)
[2019-08-29] MEDS: Acetaminophen 500 MG Tablet 1000 MG PO ×2 (05:33→21:43)
[2019-08-29] MEDS: Amiodarone 200 MG Tablet PO (08:13)
[2019-08-29] MEDS: Iron Polysaccharide Complex 150 MG CAPSULE PO (08:13)
[2019-08-29 14:12] VITALS: BP 121/69; PULSE 74; RESP 20; TEMP 36.9; O2SAT 95
[2019-08-30] MEDS: Enoxaparin 40 MG/0.4 ML Syringe SC (05:40)
[2019-08-30] MEDS: Senna/Docusate Sodium 1 Tablet 2 TABLET PO (05:40)
[2019-08-30] MEDS: Nystatin Powder 15gm Bottle 1 APPLIC TOPICAL ×2 (05:41→21:06)
[2019-08-30] MEDS: Menthol/Lanolin/Calamine/Znox 113 GM Tube 1 APPLIC TOPICAL ×2 (05:41→21:06)
[2019-08-30] MEDS: Pantoprazole Sodium 20 MG Tablet PO (05:41)
[2019-08-30] MEDS: Amiodarone 200 MG Tablet PO (07:45)
[2019-08-30] MEDS: Iron Polysaccharide Complex 150 MG CAPSULE PO (07:45)
[2019-08-30 14:08] VITALS: BP 128/69; PULSE 72; RESP 17; TEMP 36.8; O2SAT 95
[2019-08-30] MEDS: Acetaminophen 500 MG Tablet 1000 MG PO (21:08)
[2019-08-31] MEDS: Menthol/Lanolin/Calamine/Znox 113 GM Tube 1 APPLIC TOPICAL ×2 (05:44→20:19)
[2019-08-31] MEDS: Nystatin Powder 15gm Bottle 1 APPLIC TOPICAL ×2 (05:44→20:20)
[2019-08-31] MEDS: Enoxaparin 40 MG/0.4 ML Syringe SC (05:46)
[2019-08-31] MEDS: Senna/Docusate Sodium 1 Tablet 2 TABLET PO (05:46)
[2019-08-31] MEDS: Pantoprazole Sodium 20 MG Tablet PO (05:46)
[2019-08-31] MEDS: Amiodarone 200 MG Tablet PO (08:02)
[2019-08-31] MEDS: Iron Polysaccharide Complex 150 MG CAPSULE PO (08:02)
[2019-08-31 14:01] VITALS: BP 122/84; PULSE 77; RESP 14; TEMP 36.6; O2SAT 96
[2019-08-31] MEDS: Acetaminophen 500 MG Tablet 1000 MG PO (21:56)
[2019-09-01] MEDS: Enoxaparin 40 MG/0.4 ML Syringe SC (05:44)
[2019-09-01] MEDS: Pantoprazole Sodium 20 MG Tablet PO (05:44)
[2019-09-01] MEDS: Senna/Docusate Sodium 1 Tablet 2 TABLET PO (05:44)
[2019-09-01] MEDS: Menthol/Lanolin/Calamine/Znox 113 GM Tube 1 APPLIC TOPICAL ×2 (05:45→20:41)
[2019-09-01] MEDS: Nystatin Powder 15gm Bottle 1 APPLIC TOPICAL ×2 (05:45→20:41)
[2019-09-01] MEDS: Amiodarone 200 MG Tablet PO (07:44)
[2019-09-01] MEDS: Iron Polysaccharide Complex 150 MG CAPSULE PO (07:44)
[2019-09-01 14:26] VITALS: BP 128/64; PULSE 69; RESP 20; TEMP 36.4; O2SAT 98
[2019-09-01] MEDS: Acetaminophen 500 MG Tablet 1000 MG PO ×2 (15:46→21:59)
[2019-09-02] MEDS: Senna/Docusate Sodium 1 Tablet 2 TABLET PO (05:10)
[2019-09-02] MEDS: Pantoprazole Sodium 20 MG Tablet PO (05:10)
[2019-09-02] MEDS: Enoxaparin 40 MG/0.4 ML Syringe SC (05:11)
[2019-09-02] MEDS: Nystatin Powder 15gm Bottle 1 APPLIC TOPICAL ×2 (05:11→21:02)
[2019-09-02] MEDS: Menthol/Lanolin/Calamine/Znox 113 GM Tube 1 APPLIC TOPICAL ×2 (05:11→21:02)
[2019-09-02] MEDS: Iron Polysaccharide Complex 150 MG CAPSULE PO (08:10)
[2019-09-02] MEDS: Amiodarone 200 MG Tablet PO (08:10)
[2019-09-02 15:00] VITALS: BP 131/73; PULSE 71; RESP 14; TEMP 36; O2SAT 97
[2019-09-02] MEDS: Acetaminophen 500 MG Tablet 1000 MG PO (22:01)
[2019-09-03] MEDS: Enoxaparin 40 MG/0.4 ML Syringe SC (05:30)
[2019-09-03] MEDS: Senna/Docusate Sodium 1 Tablet 2 TABLET PO (05:30)
[2019-09-03] MEDS: Pantoprazole Sodium 20 MG Tablet PO (05:30)
[2019-09-03] MEDS: Nystatin Powder 15gm Bottle 1 APPLIC TOPICAL ×2 (05:30→20:26)
[2019-09-03] MEDS: Menthol/Lanolin/Calamine/Znox 113 GM Tube 1 APPLIC TOPICAL ×2 (05:31→20:26)
[2019-09-03] MEDS: Amiodarone 200 MG Tablet PO (08:21)
[2019-09-03] MEDS: Iron Polysaccharide Complex 150 MG CAPSULE PO (08:21)
[2019-09-03 14:15] VITALS: BP 130/66; PULSE 73; RESP 16; TEMP 36.3; O2SAT 96
[2019-09-03] MEDS: Acetaminophen 500 MG Tablet 1000 MG PO (21:52)
[2019-09-04] MEDS: Menthol/Lanolin/Calamine/Znox 113 GM Tube 1 APPLIC TOPICAL ×2 (05:47→20:44)
[2019-09-04] MEDS: Pantoprazole Sodium 20 MG Tablet PO (05:47)
[2019-09-04] MEDS: Senna/Docusate Sodium 1 Tablet 2 TABLET PO (05:47)
[2019-09-04] MEDS: Nystatin Powder 15gm Bottle 1 APPLIC TOPICAL ×2 (05:47→20:44)
[2019-09-04] MEDS: Amiodarone 200 MG Tablet PO (08:38)
[2019-09-04] MEDS: Iron Polysaccharide Complex 150 MG CAPSULE PO (08:38)
[2019-09-04] MEDS: Acetaminophen 500 MG Tablet 1000 MG PO (12:34)
[2019-09-04 16:00] VITALS: BP 114/62; PULSE 57; RESP 18; TEMP 36.6; O2SAT 97
[2019-09-05] MEDS: Senna/Docusate Sodium 1 Tablet 2 TABLET PO (06:10)
[2019-09-05] MEDS: Pantoprazole Sodium 20 MG Tablet PO (06:10)
[2019-09-05] MEDS: Menthol/Lanolin/Calamine/Znox 113 GM Tube 1 APPLIC TOPICAL ×2 (06:12→20:36)
[2019-09-05] MEDS: Nystatin Powder 15gm Bottle 1 APPLIC TOPICAL ×2 (06:12→20:37)
[2019-09-05] MEDS: Iron Polysaccharide Complex 150 MG CAPSULE PO (08:33)
[2019-09-05] MEDS: Amiodarone 200 MG Tablet PO (08:33)
[2019-09-05] MEDS: Acetaminophen 500 MG Tablet 1000 MG PO ×2 (08:35→22:34)
[2019-09-05 10:00] VITALS: RESP 18; O2SAT 97
[2019-09-05 14:43] VITALS: BP 104/65; PULSE 71; RESP 16; TEMP 36.3; O2SAT 96
[2019-09-06] MEDS: Senna/Docusate Sodium 1 Tablet 2 TABLET PO (05:45)
[2019-09-06] MEDS: Nystatin Powder 15gm Bottle 1 APPLIC TOPICAL ×2 (05:45→21:09)
[2019-09-06] MEDS: Pantoprazole Sodium 20 MG Tablet PO (05:45)
[2019-09-06] MEDS: Menthol/Lanolin/Calamine/Znox 113 GM Tube 1 APPLIC TOPICAL ×2 (05:45→21:10)
[2019-09-06] MEDS: Iron Polysaccharide Complex 150 MG CAPSULE PO (08:14)
[2019-09-06] MEDS: Amiodarone 200 MG Tablet PO (08:14)
[2019-09-06 15:03] VITALS: BP 117/72; PULSE 96; RESP 21; TEMP 36.9; O2SAT 95
[2019-09-07] MEDS: Senna/Docusate Sodium 1 Tablet 2 TABLET PO (05:16)
[2019-09-07] MEDS: Menthol/Lanolin/Calamine/Znox 113 GM Tube 1 APPLIC TOPICAL ×2 (05:16→21:56)
[2019-09-07] MEDS: Nystatin Powder 15gm Bottle 1 APPLIC TOPICAL ×2 (05:16→21:56)
[2019-09-07] MEDS: Pantoprazole Sodium 20 MG Tablet PO (05:16)
[2019-09-07] MEDS: Amiodarone 200 MG Tablet PO (08:39)
[2019-09-07] MEDS: Iron Polysaccharide Complex 150 MG CAPSULE PO (08:39)
[2019-09-07 14:26] VITALS: BP 122/61; PULSE 77; RESP 16; TEMP 36.7; O2SAT 98
--- NOTE | 2019-09-07 16:14 | NURSING ---
[facility] called and they said resident does not need to go to appointment tomorrow for pre-op admission testing. He may have orders carried out here. CBC, BMP, and EKG orders entered. The rest of the pre-op orders placed in the front of patients chart.
--- NOTE | 2019-09-07 18:08 | NURSING ---
Pt stating that he no longer wants to be a DNR but wants to be a full code. Order changed.
[2019-09-07] MEDS: Acetaminophen 500 MG Tablet 1000 MG PO (21:54)
[2019-09-08] MEDS: Pantoprazole Sodium 20 MG Tablet PO (05:50)
[2019-09-08] MEDS: Senna/Docusate Sodium 1 Tablet 2 TABLET PO (05:50)
[2019-09-08] MEDS: Menthol/Lanolin/Calamine/Znox 113 GM Tube 1 APPLIC TOPICAL ×2 (05:53→20:13)
[2019-09-08] MEDS: Nystatin Powder 15gm Bottle 1 APPLIC TOPICAL ×2 (05:53→20:13)
[2019-09-08] MEDS: Iron Polysaccharide Complex 150 MG CAPSULE PO (08:14)
[2019-09-08] MEDS: Amiodarone 200 MG Tablet PO (08:14)
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
--- NOTE | 2019-09-08 14:35 | NURSING ---
received phone call from surgery at this time. pt is to have protonix and amiodarone only the morning of surgery with sip of water. they are sending up instructions with the surgical soap he should use prior along with presurgery ensure. expect pt to go down in bed. Surgery will notify us at a later date as to the time of arrival
[2019-09-08 14:47] VITALS: BP 143/86; PULSE 77; RESP 18; TEMP 36.7; O2SAT 97
--- NOTE | 2019-09-08 15:35 | CHAPLAIN ---
Type of Pastoral Visit ___ Initial Visit ___ Follow-up Visit ___ On-call Visit _x__ General Patient Visit ___ Spiritual Assessment ___ Family Conference ___ Bereavement ___ Rapid Response ___ Code Blue ___ Other (describe below) Pastoral Care Referral From _x__ Patient ___ Family ___ Nurse ___ Physician ___ [employer] ___ Motor Driver ___ Other (describe below) Sacrament/Intervention _x__ Active listening ___ Anointing ___ Zoroastrianism ___ Bereavement ___ Communion ___ Gissell exploration ___ _x__ Life review _x__ Prayer ___ Reconciliation ___ Sacrament of Sick ___ Supportive presence ___ Wedding ___ Other (describe below) Pastoral Comments
--- NOTE | 2019-09-08 16:25 | NURSING ---
received some instruction from surgery, written instruction placed in chart
--- NOTE | 2019-09-08 17:46 | NURSING ---
per dr. Henriquez, pt hbg improving. beginning pt on eliquis, contact Dr. Collado to determine how long he would like eliquis to be held prior to surgery
[2019-09-08] MEDS: APIXABAN 2.5 MG TABLET PO (20:12)
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
[2019-09-08] MEDS: Acetaminophen 500 MG Tablet 1000 MG PO (21:17)
[2019-09-09] MEDS: APIXABAN 2.5 MG TABLET PO ×2 (05:58→16:59)
[2019-09-09] MEDS: Pantoprazole Sodium 20 MG Tablet PO (05:58)
[2019-09-09] MEDS: Menthol/Lanolin/Calamine/Znox 113 GM Tube 1 APPLIC TOPICAL ×2 (05:58→20:26)
[2019-09-09] MEDS: Senna/Docusate Sodium 1 Tablet 2 TABLET PO (05:58)
[2019-09-09] MEDS: Nystatin Powder 15gm Bottle 1 APPLIC TOPICAL ×2 (05:58→20:26)
[2019-09-09] MEDS: Amiodarone 200 MG Tablet PO (08:27)
[2019-09-09] MEDS: Iron Polysaccharide Complex 150 MG CAPSULE PO (08:27)
--- NOTE | 2019-09-09 13:35 | NURSING ---
Spoke with Dr. Collado's nurse, Nikki, received order to stop patient's eliquis on 09/17/19 to prepare for the 09/23/19 surgery. Order repeated back. Will add order.
[2019-09-09 13:50] VITALS: BP 129/74; PULSE 75; RESP 17; TEMP 36.6; O2SAT 92
[2019-09-09] MEDS: Acetaminophen 500 MG Tablet 1000 MG PO (21:12)
[2019-09-10] MEDS: APIXABAN 2.5 MG TABLET PO ×2 (07:10→17:38)
[2019-09-10] MEDS: Senna/Docusate Sodium 1 Tablet 2 TABLET PO (07:10)
[2019-09-10] MEDS: Nystatin Powder 15gm Bottle 1 APPLIC TOPICAL ×2 (07:11→20:41)
[2019-09-10] MEDS: Menthol/Lanolin/Calamine/Znox 113 GM Tube 1 APPLIC TOPICAL ×2 (07:11→20:41)
[2019-09-10] MEDS: Pantoprazole Sodium 20 MG Tablet PO (07:11)
[2019-09-10] MEDS: Amiodarone 200 MG Tablet PO (08:16)
[2019-09-10] MEDS: Iron Polysaccharide Complex 150 MG CAPSULE PO (08:17)
[2019-09-10 14:36] VITALS: BP 128/73; PULSE 74; RESP 18; TEMP 36.6; O2SAT 96
[2019-09-10] MEDS: Acetaminophen 500 MG Tablet 1000 MG PO (21:15)
--- NOTE | 2019-09-10 22:56 | NURSING ---
Pt noted to have a medium clear liquid mucus BM with brown threads. Will update Dr Henriquez
[2019-09-11] MEDS: Menthol/Lanolin/Calamine/Znox 113 GM Tube 1 APPLIC TOPICAL ×2 (06:15→21:28)
[2019-09-11] MEDS: Pantoprazole Sodium 20 MG Tablet PO (06:15)
[2019-09-11] MEDS: APIXABAN 2.5 MG TABLET PO ×2 (06:15→17:11)
[2019-09-11] MEDS: Nystatin Powder 15gm Bottle 1 APPLIC TOPICAL ×2 (06:15→21:28)
[2019-09-11] MEDS: Senna/Docusate Sodium 1 Tablet 2 TABLET PO (06:15)
[2019-09-11] MEDS: Amiodarone 200 MG Tablet PO (08:04)
[2019-09-11] MEDS: Iron Polysaccharide Complex 150 MG CAPSULE PO (08:04)
[2019-09-11 15:38] VITALS: BP 159/81; PULSE 71; RESP 14; TEMP 36.4; O2SAT 95
[2019-09-11] MEDS: Acetaminophen 500 MG Tablet 1000 MG PO (21:29)
[2019-09-12] MEDS: Senna/Docusate Sodium 1 Tablet 2 TABLET PO (05:48)
[2019-09-12] MEDS: Pantoprazole Sodium 20 MG Tablet PO (05:48)
[2019-09-12] MEDS: APIXABAN 2.5 MG TABLET PO ×2 (05:48→17:06)
[2019-09-12] MEDS: Nystatin Powder 15gm Bottle 1 APPLIC TOPICAL ×2 (05:49→20:28)
[2019-09-12] MEDS: Menthol/Lanolin/Calamine/Znox 113 GM Tube 1 APPLIC TOPICAL ×2 (05:49→20:28)
[2019-09-12] MEDS: Amiodarone 200 MG Tablet PO (08:18)
[2019-09-12] MEDS: Iron Polysaccharide Complex 150 MG CAPSULE PO (08:18)
[2019-09-12 13:57] VITALS: BP 131/76; PULSE 72; RESP 18; TEMP 36.7; O2SAT 98
[2019-09-13] MEDS: Pantoprazole Sodium 20 MG Tablet PO (06:04)
[2019-09-13] MEDS: Nystatin Powder 15gm Bottle 1 APPLIC TOPICAL ×2 (06:04→20:43)
[2019-09-13] MEDS: Menthol/Lanolin/Calamine/Znox 113 GM Tube 1 APPLIC TOPICAL ×2 (06:05→20:44)
[2019-09-13] MEDS: APIXABAN 2.5 MG TABLET PO ×2 (06:07→17:34)
[2019-09-13] MEDS: Iron Polysaccharide Complex 150 MG CAPSULE PO (08:49)
[2019-09-13] MEDS: Amiodarone 200 MG Tablet PO (08:49)
[2019-09-13 14:23] VITALS: BP 144/68; PULSE 71; RESP 17; TEMP 36.8; O2SAT 97
[2019-09-13] MEDS: Acetaminophen 500 MG Tablet 1000 MG PO (21:32)
[2019-09-14] MEDS: Pantoprazole Sodium 20 MG Tablet PO (05:33)
[2019-09-14] MEDS: Senna/Docusate Sodium 1 Tablet 2 TABLET PO (05:33)
[2019-09-14] MEDS: Menthol/Lanolin/Calamine/Znox 113 GM Tube 1 APPLIC TOPICAL ×2 (05:34→20:28)
[2019-09-14] MEDS: Nystatin Powder 15gm Bottle 1 APPLIC TOPICAL ×2 (05:34→20:29)
[2019-09-14] MEDS: APIXABAN 2.5 MG TABLET PO (05:34)
[2019-09-14] MEDS: Iron Polysaccharide Complex 150 MG CAPSULE PO (08:49)
[2019-09-14] MEDS: Amiodarone 200 MG Tablet PO (08:49)
[2019-09-14 15:24] VITALS: BP 117/75; PULSE 71; RESP 16; TEMP 36.3; O2SAT 94
--- NOTE | 2019-09-14 17:13 | NURSING ---
Addendum entered by Jerrica Coon 09/14/19 17:16: Dr Henriquez updated on residents requesting to hold Eliquis till his surgery and orders given to DC med at this time. Original Note: Resident is concerned that a week off Eliquis is not long enough time. He is refusing to take his Eliquis dose tonight.
[2019-09-14] MEDS: Acetaminophen 500 MG Tablet 1000 MG PO (21:25)
[2019-09-15] MEDS: Pantoprazole Sodium 20 MG Tablet PO (05:33)
[2019-09-15] MEDS: Senna/Docusate Sodium 1 Tablet 2 TABLET PO (05:33)
[2019-09-15] MEDS: Nystatin Powder 15gm Bottle 1 APPLIC TOPICAL ×2 (05:33→20:28)
[2019-09-15] MEDS: Menthol/Lanolin/Calamine/Znox 113 GM Tube 1 APPLIC TOPICAL ×2 (05:33→20:29)
[2019-09-15] MEDS: Amiodarone 200 MG Tablet PO (07:44)
[2019-09-15] MEDS: Iron Polysaccharide Complex 150 MG CAPSULE PO (07:44)
[2019-09-15 15:55] VITALS: BP 132/73; PULSE 68; RESP 16; TEMP 36.8; O2SAT 94
[2019-09-15 16:00] VITALS: BP 132/73; PULSE 83; RESP 16; TEMP 36.8; O2SAT 94
[2019-09-15] MEDS: Acetaminophen 500 MG Tablet 1000 MG PO (21:23)
[2019-09-16] MEDS: Senna/Docusate Sodium 1 Tablet 2 TABLET PO (05:24)
[2019-09-16] MEDS: Menthol/Lanolin/Calamine/Znox 113 GM Tube 1 APPLIC TOPICAL ×2 (05:25→20:57)
[2019-09-16] MEDS: Pantoprazole Sodium 20 MG Tablet PO (05:25)
[2019-09-16] MEDS: Nystatin Powder 15gm Bottle 1 APPLIC TOPICAL ×2 (05:26→20:57)
[2019-09-16] MEDS: Amiodarone 200 MG Tablet PO (08:22)
[2019-09-16] MEDS: Iron Polysaccharide Complex 150 MG CAPSULE PO (08:22)
[2019-09-16 11:51] VITALS: PULSE 63; RESP 18
[2019-09-16 14:32] VITALS: BP 118/71; PULSE 72; RESP 16; TEMP 36.6; O2SAT 94
[2019-09-16] MEDS: Acetaminophen 500 MG Tablet 1000 MG PO (21:02)
[2019-09-17] MEDS: Senna/Docusate Sodium 1 Tablet 2 TABLET PO (05:38)
[2019-09-17] MEDS: Menthol/Lanolin/Calamine/Znox 113 GM Tube 1 APPLIC TOPICAL ×2 (05:38→20:44)
[2019-09-17] MEDS: Pantoprazole Sodium 20 MG Tablet PO (05:38)
[2019-09-17] MEDS: Nystatin Powder 15gm Bottle 1 APPLIC TOPICAL ×2 (05:39→20:42)
[2019-09-17] MEDS: Iron Polysaccharide Complex 150 MG CAPSULE PO (08:04)
[2019-09-17] MEDS: Amiodarone 200 MG Tablet PO (08:04)
[2019-09-17 15:17] VITALS: BP 113/55; PULSE 69; RESP 18; TEMP 36.2; O2SAT 95
[2019-09-18] MEDS: Menthol/Lanolin/Calamine/Znox 113 GM Tube 1 APPLIC TOPICAL ×2 (06:31→20:07)
[2019-09-18] MEDS: Nystatin Powder 15gm Bottle 1 APPLIC TOPICAL ×2 (06:32→20:07)
[2019-09-18] MEDS: Pantoprazole Sodium 20 MG Tablet PO (06:33)
[2019-09-18] MEDS: Senna/Docusate Sodium 1 Tablet 2 TABLET PO (06:33)
[2019-09-18 09:17] VITALS: BP 126/62; PULSE 74; RESP 16; TEMP 36.6; O2SAT 97
[2019-09-18] MEDS: Amiodarone 200 MG Tablet PO (09:21)
[2019-09-18] MEDS: Iron Polysaccharide Complex 150 MG CAPSULE PO (09:21)
[2019-09-18 14:14] VITALS: BP 133/76; PULSE 75; RESP 14; TEMP 36.4; O2SAT 96
[2019-09-18] MEDS: Acetaminophen 500 MG Tablet 1000 MG PO (21:19)
[2019-09-19] MEDS: Senna/Docusate Sodium 1 Tablet 2 TABLET PO (06:35)
[2019-09-19] MEDS: Pantoprazole Sodium 20 MG Tablet PO (06:35)
[2019-09-19] MEDS: Nystatin Powder 15gm Bottle 1 APPLIC TOPICAL ×2 (06:36→22:13)
[2019-09-19] MEDS: Menthol/Lanolin/Calamine/Znox 113 GM Tube 1 APPLIC TOPICAL ×2 (06:36→22:12)
[2019-09-19] MEDS: Iron Polysaccharide Complex 150 MG CAPSULE PO (08:43)
[2019-09-19] MEDS: Amiodarone 200 MG Tablet PO (08:43)
[2019-09-19] MEDS: Acetaminophen 500 MG Tablet 1000 MG PO ×3 (11:42→23:53)
[2019-09-19 13:55] VITALS: BP 128/71; PULSE 71; RESP 16; TEMP 35.9; O2SAT 96
[2019-09-20] MEDS: Senna/Docusate Sodium 1 Tablet 2 TABLET PO (06:06)
[2019-09-20] MEDS: Pantoprazole Sodium 20 MG Tablet PO (06:06)
[2019-09-20] MEDS: Menthol/Lanolin/Calamine/Znox 113 GM Tube 1 APPLIC TOPICAL ×2 (06:07→21:03)
[2019-09-20] MEDS: Nystatin Powder 15gm Bottle 1 APPLIC TOPICAL ×2 (06:07→21:04)
[2019-09-20] MEDS: Amiodarone 200 MG Tablet PO (07:59)
[2019-09-20] MEDS: Iron Polysaccharide Complex 150 MG CAPSULE PO (07:59)
[2019-09-20] MEDS: Acetaminophen 500 MG Tablet 1000 MG PO ×2 (07:59→21:05)
[2019-09-20 13:27] VITALS: BP 137/50; PULSE 62; RESP 18; TEMP 36.4; O2SAT 97
--- NOTE | 2019-09-20 16:11 | PCA ---
SaturdaySeptember 18 & SaturdaySeptember 19. Hibiclens was used to wash up Bill during morning care.
[2019-09-21] MEDS: Pantoprazole Sodium 20 MG Tablet PO (05:23)
[2019-09-21] MEDS: Senna/Docusate Sodium 1 Tablet 2 TABLET PO (05:23)
[2019-09-21] MEDS: Menthol/Lanolin/Calamine/Znox 113 GM Tube 1 APPLIC TOPICAL ×2 (05:24→21:04)
[2019-09-21] MEDS: Nystatin Powder 15gm Bottle 1 APPLIC TOPICAL ×2 (05:24→21:03)
[2019-09-21 06:00] LABS: Absolute Neutrophil Count 4.7 X10^3/uL (2.0-7.7); Basophil# 0.08 X10^3/uL; Basophil% 1.1 % (0-1); Eosinophil# 0.37 X10^3/uL; Eosinophils% 5.1 % (0-5); Hematocrit 32.4 % (40-54); Hemoglobin 10.5 g/dL (13.0-16.5); Lymphocyte % 17.8 % (19-41); Mean Corp Hgb Conc 32.4 g/dL (32-36); Mean Corpuscular Hgb 30.7 pg (27.0-32.0); Mean Corpuscular Volume 94.7 fL (80-94); Mean Platelet Vol. 9.3 fl (6.2-12.0); Monocyte# 0.82 X10^3/uL; Monocyte% 11.2 % (0-10); NRBC Flagged by Analyzer 0 % (0-5); Neutrophil # 4.68 X10^3/uL (2.7-7.7); Neutrophil % 63.8 % (47-70); Platelet Count 284 K/mm3 (150-450); RBC Distribution Width CV 14.9 % (11.6-14.6); RBC Distribution Width SD 51.8 fl (35.1-43.9); Red Blood Count 3.42 M/mm3 (4.6-6.2); White Blood Count 7.3 K/mm3 (4.4-11.0)
--- NOTE | 2019-09-21 06:00 | EKG12_ITS ---
Test Reason : PER-OP Blood Pressure : / mmHG Vent. Rate : 071 BPM Atrial Rate : 071 BPM P-R Int : 152 ms QRS Dur : 090 ms QT Int : 428 ms P-R-T Axes : 040 -35 036 degrees QTc Int : 465 ms Normal sinus rhythm Left axis deviation Low voltage QRS (Limb Leads) Nonspecific ST abnormality Abnormal ECG Confirmed by BUSHRA HEIN, VICKY ([id number]), book or script editor SHELLEY MORGAN ([id number]) on 09/23/2019 9:40:03 AM Referred By: Hank Henriquez Confirmed By:VICKY TOMLINSON MD
[2019-09-21 06:44] LABS: Anion Gap 6 (5-15); BUN 20 mg/dL (7-18); BUN/Creat Ratio 20.6 RATIO (10-20); Calcium,Total 8.9 mg/dL (8.5-10.1); Chloride 106 mmol/L (98-107); Creatinine, Serum 0.97 mg/dL (0.70-1.30); EST Glomerular Filtration Rate 78 mL/min (>60); Est Glom Filt Rate - Afr Amer 95 mL/min (>60); Estimated Creatinine Clearance 67.09 ml/min; Glucose 95 mg/dL (74-106); Potassium 4.2 mmol/L (3.5-5.1); Sodium Level 139 mmol/L (136-145)
[2019-09-21] MEDS: Iron Polysaccharide Complex 150 MG CAPSULE PO (08:10)
[2019-09-21] MEDS: Amiodarone 200 MG Tablet PO (08:10)
[2019-09-21] MEDS: Acetaminophen 500 MG Tablet 1000 MG PO ×2 (12:33→21:03)
[2019-09-21 14:08] VITALS: BP 96/58; PULSE 58; RESP 18; TEMP 36.9; O2SAT 96
[2019-09-21 17:50] VITALS: BP 139/71; PULSE 71
[2019-09-22] MEDS: Senna/Docusate Sodium 1 Tablet 2 TABLET PO (05:14)
[2019-09-22] MEDS: Pantoprazole Sodium 20 MG Tablet PO (05:14)
[2019-09-22] MEDS: Nystatin Powder 15gm Bottle 1 APPLIC TOPICAL ×2 (05:15→19:48)
[2019-09-22] MEDS: Menthol/Lanolin/Calamine/Znox 113 GM Tube 1 APPLIC TOPICAL ×2 (05:15→19:47)
[2019-09-22] MEDS: Iron Polysaccharide Complex 150 MG CAPSULE PO (07:54)
[2019-09-22] MEDS: Amiodarone 200 MG Tablet PO (07:54)
[2019-09-22] MEDS: Acetaminophen 500 MG Tablet 1000 MG PO ×3 (07:57→21:38)
--- NOTE | 2019-09-22 14:03 | NURSING ---
notified scheduling, surgery will be @ 12:30pm.
[2019-09-22 14:08] VITALS: BP 121/68; PULSE 71; RESP 16; TEMP 36.7; O2SAT 96
[2019-09-23] MEDS: Amiodarone 200 MG Tablet PO (06:23)
[2019-09-23] MEDS: Pantoprazole Sodium 20 MG Tablet PO (06:23)
[2019-09-23 09:14] VITALS: BP 137/64; PULSE 68; RESP 16; TEMP 36.7; O2SAT 97
== END 2019-09-23 08:55 | disposition short-term general hospital (02) | DRG 949 ==
PROVIDERS: Admitting Provider Family Medicine Geriatric Medicine; Family Provider Internal Medicine; PCP Internal Medicine; Referring Provider Family Medicine Geriatric Medicine; Visit Provider Family Medicine Geriatric Medicine
DX: T84.52XD Infection and inflammatory reaction due to internal left hip prosthesis, subsequent encounter (principal); Z16.21 Resistance to vancomycin; I48.20 Chronic atrial fibrillation, unspecified; B37.89 Other sites of candidiasis; Y79.2 Prosthetic and other implants, materials and accessory orthopedic devices associated with adverse incidents; K21.9 Gastro-esophageal reflux disease without esophagitis; I10 Essential (primary) hypertension; D50.9 Iron deficiency anemia, unspecified; B95.2 Enterococcus as the cause of diseases classified elsewhere; I48.0 Paroxysmal atrial fibrillation; M19.071 Primary osteoarthritis, right ankle and foot; M21.40 Flat foot [pes planus] (acquired), unspecified foot; B35.4 Tinea corporis; Z86.718 Personal history of other venous thrombosis and embolism
CPT/HCPCS: 36415; 73502; 73552; 73560; 80048; 85014; 85018; 85025; 85610; 85652; 86140; 87081; 87506; 93005; 93970; 97110; 97116; 97162; 97166; 97530; 97535; 97802

== ENCOUNTER → 2019-08-10 09:52 | Outpatient (CLI) | payer MEDICARE, SELFPAY ==
--- NOTE | 2019-08-10 09:45 | RAD_ITS ---
PROCEDURE: Fluoroscopic guided left hip aspiration. DATE: August 10, 2019. INDICATION: Male, 84 years old. Left hip pain. PHYSICIAN: Bruce Allan M.D. MEDICATIONS: 2% lidocaine administered subcutaneously for local anesthesia. ACCESS SITE: Left hip. NEEDLE: 22-gauge spinal needle. FLUOROSCOPY TIME (if supplied): (0:30) minutes/seconds FINDINGS: The risks, benefits, and alternatives to the procedure were explained to the patient. The specific risks of bleeding, infection, and neurovascular injury were detailed and accepted. Witnessed informed consent was obtained. A 22-gauge needle was positioned under graphic fluoroscopic localization. Approximately 2 cc of blood-tinged fluid was aspirated. The patient tolerated the procedure well without any immediate complications. The patient was placed supine with head elevated and returned to the floor in stable condition. RAD/Inj/Asp Van Jt Should/Hip/Knee IMPRESSION: Left hip aspiration with aspiration of 2 cc of blood-tinged fluid. Electronically Signed: Bruce Allan, at 10:59 EST , Service support ,
== END ==
PROVIDERS: PCP Internal Medicine; Referring Provider Specialist; Visit Provider Specialist
DX: Z96.642 Presence of left artificial hip joint (principal); Z86.19 Personal history of other infectious and parasitic diseases
CPT/HCPCS: 20610; 77002; 87070; 87075; 87205; Q9967

== ENCOUNTER 2019-09-23 09:33 | Inpatient (IN) | payer MEDICARE, SELFPAY ==
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
[2019-09-23] VITALS (11 sets, daily range): BP systolic 107–150; BP diastolic 59–88; PULSE 56–70; RESP 16–18; TEMP 36.2–36.8; O2SAT 96–100; BMI 30.8
[2019-09-23] MEDS: Lactated Ringers 1,000 ML 999 ML IV ×2 (09:23→15:01)
[2019-09-23] MEDS: Acetaminophen 500 MG Tablet 1000 MG PO ×2 (09:24→21:50)
[2019-09-23] MEDS: Gabapentin 600 MG Tablet PO (09:25)
[2019-09-23 10:11] LABS: Bedside Glucose 75 mg/dL (70-110)
[2019-09-23] MEDS: Cefazolin 2 GM in 0.9% Normal Saline 100 ML IV (10:50)
[2019-09-23] MEDS: Vancomycin IV 1,000 MG/20 ML Vial 2000 MG OPERA.SITE (13:00)
[2019-09-23 13:28] LABS: Hemoglobin 9.9 g/dL (13.0-16.5)
--- NOTE | 2019-09-23 14:13 | RAD_ITS ---
STUDY: X-RAY - PELVIS AND LEFT HIP REASON FOR EXAM: Male, 84 years old. POST OP LEFT HIP TECHNIQUE: 2 views of the pelvis and hip. COMPARISON: Comparison is made with prior examination dated July 13, 2019. FINDINGS: The patient is status post left hip replacement. There is good alignment. Postoperative soft tissue changes. RAD/Hip Min 2 Views (Portable) IMPRESSION: Status post left hip replacement. There is good alignment. Postoperative soft tissue changes. Electronically Signed: Bruce Allan, at 15:24 EDT , Service support ,
--- NOTE | 2019-09-23 14:21 | OP.PCM_ITS ---
Report of Operation Date of Procedure: 09/23/19 Pre-Operative Diagnosis: Dislocated left hip antibiotic spacer, previous left hip P JI Post-Operative Diagnosis: Dislocated left hip antibiotic spacer, previous left hip P JI Surgery/Procedure Performed:: Revision left total hip replacement, conversion from antibiotic spacer to total replacement. Removal of nonbiodegradable antibiotic delivery system. Placement of nonbiodegradable antibiotic delivery system Description of Surgical Findings:: Stable hip, equal leg lengths. marketing regional consultant: Mark Call Type of Anesthesia:: Spinal Anesthesiologist: Silas Veronica Special Medications: 2 g Ancef, 1 g TXA at incision, 1 g TXA closure, 10 mg Decadron, joint cocktail (5 mg Duramorph, 30 mL of 0.5% Ropivicaine, 1000 units of epinephrine, 30 mg of Toradol). 2 g of vancomycin were mixed into cement to coat the stem. 2 additional grams of Ancef were given 2 hours after incision. Specimen's removed: Cultures Estimated Blood Loss (mL): 1000 Fluids Replaced: 2400 mL crystalloid Description of Procedure: On the date of the procedure patient's left hip was marked. Patient was brought back to the operating room where they were transferred to the table in the supine position. Anesthesia assumed control of the C-spine airway and remained controlled throughout the remainder of the procedure. Once the patient was appropriate anesthetized and spinal had been administered patient was placed in the lateral cubitus position with the left hip near. Left hip was then prepped in a sterile fashion after all bony prominences have been identified and well- padded. Surgeon then scrubbed. Upon reentering the room the left lower extremity was draped in a standard orthopedic fashion. Incision was marked out and timeout was called. Everyone agreed upon the side, the site, the future could perform, patient's identity antibiotics given. Incision was taken down through skin. Based on patient's multiple previous surgeries we carefully dissected to the tissues trying to identify the different layers. Once we identified the fascia we incised to the fascia. We attempted to re-create the fascial layers both superficial and deep in order to have an appropriate closure. Once we had done this dislocated hip was brought out of the wound. We dissected down to the distal screws for the makeshift antibiotic spacer. The screws were removed and the spacer was removed from the femur. Deep in the wound there was synovial tissue which was debrided and sent for culture. Once was completed we did a complete synovectomy. Hemostasis was maintained throughout however we did have a lot of scar tissue that led to slow blood loss throughout the procedure. Once this was done curettes were used to debride the femoral canal and we sequentially reamed the femoral canal up to 17 mm. The proximal femur was reamed with the face reamer. We then directed our attention to the acetabulum. The cement mantle was removed from the acetabulum and the membrane was sent for culture. We then sequentially reamed the acetabulum up to 61 for 62 mm cup. Once this was done and the wound had been adequately debrided the wound was copiously irrigated out 6 L normal saline under low-pressure lavage. After completion of the low-pressure lavage the wound was irrigated with chlorhexidine and the final acetabular component was opened. This was placed in a position with appropriate anteversion and abduction. It was impacted into place. After initial impaction into place trial liner was placed we directed our attention to the femur. Using the previous antibiotic spacer we got an estimate size on our proximal femoral replacement stem. We then placed the stem in the femoral canal. Using a +4 mm femoral head neck length the leg was reduced this showed a stable hip with equal leg lengths. The appropriate anteversion was marked using a Bovie on the femur. Our attention was turned back to the acetabulum after we dislocated the hip. Trial liner was removed from the acetabular component and 5 screws were placed. Acetabulum was well fixed. MDM liner was placed in the [place] taper was verified. Once this was completed we turned our attention to the femur. Final femoral components were open and impacted into place. We mixed one batch of tobramycin cement with 2 g of vancomycin powder. We use this to coat the assembled proximal femoral placement component. 3 #5 FiberWire's were placed through the inner eyelets. At this time a second batch of cement was mixed using the tobramycin cement. The femoral canal was prepped, dried and a cement restrictor was placed. Cement was pressurized in the canal. The stem was then cemented into place. Excess cement did come out to some of the previous screw holes this was cleared up. Excess cement from around the proximal stem was also cleared up. Once the cement had adequately cured the final head was assembled and impacted into place. The hip was reduced. The leg lengths appeared equal with the patient laying in the lateral cubitus position and the hip was stable with flexion and internal rotation. At this time the wound was copiously get out normal saline once more. Hemostasis was obtained. A drain was placed at the anterior proximal wound. The #5 FiberWire was placed around the femoral neck were used to provisionally fix the fascia. #2 FiberWire was used to fix the fascia proximally #1 Vicryl was used to fix the fascia distally. Skin and subcuticular layers were then closed in a layer joseph fashion with final skin closure being done with nylon sutures. Sterile dressing was placed. Patient was placed back in the supine position and transferred to the bed for recovery. Patient was transferred to the PACU for recovery. Postoperative plan: Patient will be on aspirin for DVT prophylaxis. If he does not mobilize appropriately we will increase his DVT prophylaxis. He can be weightbearing as tolerated. Posterior precautions for the next 3 months strictly. During the course of the procedure the physician cement tester assistant played a vital role. His intimate knowledge of my steps in the procedure aided in safe and expedient completion of the procedure. The PA played a vital rolls in positioning particularly in obtaining the appropriate lateral decubitus position. The PA was also vital in the retraction of soft tissues during the exposure and especially the femoral work as this is a vital part of the procedure to prevent complications and fractures. The PA was also vital and protecting soft tissues during times of bony cuts and reaming. He also played a vital role in closure with my direct supervision. The PA was also important during reduction and dislocation of the joint and trials intraoperatively. Implants [place] Trident 2 multihole acetabular shell 62 mm alpha code G with 5 screws. Roque MDM liner [place] X3 MDM outer ball 40 8G Roque Biolox delta 20 mm +4 mm ceramic femoral head Roque proximal femoral placement with 16mm extension, 50 mm x 127 mm cemented stem and GMRS proximal femoral component. Grafts/Implants Used: [place] - Complications No intraoperative complications - Admit VTE Documentation VTE Present on Admission: No VTE Mechan Device Prophylaxis: SCD's, Thigh High JOHN Hose VTE Pharm Prophylaxis ordered?: Yes
[2019-09-23] MEDS: Lactated Ringers 1,000 ML 125 ML IV ×2 (15:17→15:18)
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
--- NOTE | 2019-09-23 17:20 | RAD_ITS ---
STUDY: X-RAY - LEFT FEMUR REASON FOR STUDY: Male, 84 years old. POST OP TECHNIQUE: 2 view(s) of the femur. COMPARISON: Prior femur radiograph from July 20, 2019 FINDINGS: Status post placement of new total hip arthroplasty hardware. The standard acetabular and femoral components are properly located. The former hardware and methyl methacrylate have been entirely removed. The new intramedullary component of the femoral head replacement terminates 6.5 cm above the intramedullary component of the pre-existing femoral replacement at the knee. Normal postoperative soft tissue changes. RAD/Femur 1 view IMPRESSION: Prior hardware and methacrylate from the proximal and mid femur have been removed entirely and a new total hip arthroplasty in stalled which terminates 6.5 cm above the pre-existing knee replacement hardware. The hardware appears in excellent position with no migration or disruption of the hardware. No untoward bone, joint or hardware findings. Electronically Signed: Deloris Tracy MD at 19:01 EDT , Service support ,
[2019-09-23] MEDS: Linezolid 600 MG Tablet PO (17:47)
[2019-09-23] MEDS: Ensure Surgery 237 ML LIQUID PO (17:48)
[2019-09-23] MEDS: Cefazolin 1 GM/50 ML BAG IV (18:43)
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
[2019-09-23] MEDS: Aspirin 81 MG TAB.CHEW PO (21:50)
[2019-09-23] MEDS: Doxycycline 100 MG CAPSULE PO (21:50)
[2019-09-23] MEDS: Senna/Docusate Sodium 1 Tablet 2 TABLET PO (21:50)
[2019-09-24 00:57] VITALS: BMI 30.8
[2019-09-24] MEDS: Cefazolin 1 GM/50 ML BAG IV (02:41)
[2019-09-24 02:57] VITALS: BP 104/50; PULSE 72; RESP 16; TEMP 36.7; O2SAT 98
[2019-09-24 04:57] VITALS: BMI 30.8
[2019-09-24] MEDS: Nystatin Powder 15gm Bottle 1 APPLIC TOPICAL ×2 (05:30→21:51)
[2019-09-24] MEDS: Acetaminophen 500 MG Tablet 1000 MG PO ×3 (05:30→21:52)
[2019-09-24 06:35] LABS: Hematocrit 22.9 % (40-54); Hemoglobin 7.5 g/dL (13.0-16.5); Mean Corp Hgb Conc 32.8 g/dL (32-36); Mean Corpuscular Hgb 30.9 pg (27.0-32.0); Mean Corpuscular Volume 94.2 fL (80-94); Mean Platelet Vol. 9.6 fl (6.2-12.0); Platelet Count 282 K/mm3 (150-450); RBC Distribution Width CV 14.8 % (11.6-14.6); RBC Distribution Width SD 50.5 fl (35.1-43.9); Red Blood Count 2.43 M/mm3 (4.6-6.2); White Blood Count 11.8 K/mm3 (4.4-11.0)
[2019-09-24 07:01] LABS: Anion Gap 7 (5-15); BUN 22 mg/dL (7-18); BUN/Creat Ratio 20.4 RATIO (10-20); Calcium,Total 8.4 mg/dL (8.5-10.1); Chloride 103 mmol/L (98-107); Creatinine, Serum 1.08 mg/dL (0.70-1.30); EST Glomerular Filtration Rate 69 mL/min (>60); Est Glom Filt Rate - Afr Amer 84 mL/min (>60); Estimated Creatinine Clearance 60.25 ml/min; Glucose 119 mg/dL (74-106); Potassium 5.5 mmol/L (3.5-5.1); Sodium Level 136 mmol/L (136-145)
[2019-09-24 08:57] VITALS: BP 110/46; PULSE 84; RESP 18; TEMP 36.7; O2SAT 95; BMI 30.8
--- NOTE | 2019-09-24 08:58 | PN.ORTHO_ITS ---
Subjective: The patient was sitting in bed eating breakfast upon examination. Patient denies any chest pain, shortness of breath, dizziness, lightheadedness, nausea or vomiting, or calf pain. Pain is controlled on medications. No adverse overnight events. Patient did lose significant amount of blood during surgery and his hemoglobin has dropped from 9.9-7.5 today. He currently denies any dizziness, lightheadedness or feeling of passing out. He has not been up at this time. There is been 370 mL blood loss and Hemovac drain. Patient has been consulted with infectious disease and he is currently taking linezolid and fluconazole. Patient does have previous history of infection in which she has been on previous antibiotics with antibiotic spacer. Medicine has been consulted for postoperative medical management. Objective: Vital signs stable and afebrile. Patient's last 2 previous blood pressure reading was 104/50 and 110/46. Pulse has remained stable. Patient is able to plantarflex and dorsiflex actively. Sensation is intact to light touch to saphenous, sural, superficial and deep peroneal, and tibial distribution. Dressing is clean dry and intact. Hemovac drain in place with no output at this time. Nursing just emptied Hemovac canister. There has been 370 mL output. Negative Homans bilaterally, negative signs and symptoms of DVT. - Physical Exam Vitals/I&O's: Vital Signs Temp Pulse Resp BP Pulse Ox 98.1 F 72 16 104/50 L 98 09/24/19 02:57 09/24/19 02:57 09/24/19 02:57 09/24/19 02:57 09/24/19 02:57 Oxygen Flow Rate (L/min) 6 Oxygen Delivery Method Room Air Weight: 108.862 kg Body Mass Index (BMI) 30.8 Intake and Output for Last 24 Hours 09/22/19 09/23/19 09/24/19 23:59 23:59 23:59 Intake Total 3480 / 3780 1600 / 1600 Output Total 120 / 370 500 / 500 Balance 3360 / 3410 1100 / 1100 General: Alert, Oriented x3, Cooperative, No apparent distress Laboratory Results 09/23/19 09:15: Blood Type O POSITIVE, Antibody Screen NEGATIVE 09/23/19 09:20: POC Glucose 75 09/23/19 13:10: Hgb 9.9 L, Hct 31.0 L 09/24/19 06:00: WBC 11.8 H, RBC 2.43 L, Hgb 7.5 L, Hct 22.9 L, MCV 94.2 H, MCH 30.9, MCHC 32.8, RDW Std Deviation 50.5 H, RDW Coeff of Morenita 14.8 H, Plt Count 282, MPV 9.6 09/24/19 06:00: Sodium 136, Potassium 5.5 H, Chloride 103, Carbon Dioxide 26.0, Anion Gap 7, BUN 22 H, Creatinine 1.08, Estim Creat Clear Calc 60.25, Est GFR (MDRD) Af Amer 84, Est GFR (MDRD) Non-Af 69, BUN/Creatinine Ratio 20.4 H, Gluco se 119 H, Calcium 8.4 L Current Medications Acetaminophen (Tylenol) 1,000 mg PO Q8 [facility] Last Admin: 09/24/19 05:30 Dose: 1,000 mg Documented by: Amiodarone HCl (Cordarone) 200 mg PO DAILY@0800 [facility] Aspirin ([facility]in, Baby) [facility] Last Admin: 09/23/19 21:50 Dose: 81 mg Documented by: Bisacodyl (Dulcolax) 10 mg PO DAILY PRN PRN Reason: Constipation Doxycycline Monohydrate (Doxycycline) 100 mg PO BID [facility] Last Admin: 09/23/19 21:50 Dose: 100 mg Documented by: Enteral Nutritional Formula (Ensure Surgery) 237 ml PO TIDCM [facility] Last Admin: 09/23/19 17:48 Dose: 237 ml Documented by: Famotidine (Pepcid) 20 mg PO DAILY [facility] Fluconazole (Diflucan) 200 mg PO DAILY [facility] Lactated Ringer's () 1,000 mls @ 125 mls/hr IV .Q8H [facility] Last Infusion: 09/24/19 05:49 Dose: Infused Documented by: Ketorolac Tromethamine (Toradol (Bkc)) 15 mg IV Q6H PRN PRN PRN Reason: Pain Score 1-5/10 Stop: 09/25/19 14:14 Linezolid (Zyvox) 600 mg PO BID [facility] Last Admin: 09/23/19 17:47 Dose: 600 mg Documented by: Meloxicam (Mobic) 7.5 mg PO BID [facility] Morphine Sulfate () 2 - 4 mg IV Q2H PRN PRN PRN Reason: Pain Score 4-10/10 Morphine Sulfate () 2 - 4 mg IV Q2H PRN PRN PRN Reason: Pain Score 4-10/10 Nystatin (Mycostatin Powder) 1 applic TOPICAL 0600,2200 [facility]; Protocol Last Admin: 09/24/19 05:30 Dose: 1 applicatio Documented by: Ondansetron HCl (Zofran) 4 mg IV Q8H PRN PRN PRN Reason: NAUSEA Oxycodone HCl (Oxyir) 5 - 10 mg PO Q4H PRN PRN PRN Reason: Pain Score 4-10/10 Pantoprazole Sodium (Protonix) 20 mg PO DAILY [facility] Polysaccharide Iron Complex (Ferrex 150) 150 mg PO DAILYCM [facility] Promethazine HCl (Phenergan) 12.5 mg IM Q6H PRN PRN; Protocol PRN Reason: NAUSEA/VOMITING Senna/Docusate Sodium (Senokot-S, Herminia-Colace) 2 tablet PO BID [facility] Last Admin: 09/23/19 21:50 Dose: 2 tablet Documented by: Sodium Chloride () 10 - 40 ml IV UD PRN PRN Reason: SALINE FLUSH Medical Necessity - Tobacco Use Smoking Status: Never smoker Tobacco Use: Non-smoker Assessment/Plan All Active Problems Debility (Acute) Hip hematoma, left (Acute) Hip dislocation, left (Acute) Toe pain, left (Acute) Toe pain, right (Acute) Sternal fracture (Acute) Multiple rib fractures (Acute) Lumbar transverse process fracture (Acute) Sacral fracture, closed (Acute) Fracture of left inferior pubic ramus (Acute) Fracture of ischial tuberosity (Acute) Open fracture of right proximal tibia (Acute) Open fracture of right distal tibia (Acute) Open fracture of right humerus (Acute) Right scapula fracture (Acute) Closed fracture of right distal femur (Acute) Left femoral shaft fracture (Acute) Small bowel obstruction (Acute) Pneumocytosis (Acute) Metacarpal bone fracture (Acute) Fracture, metacarpal shaft (Acute) CMC arthritis, thumb, 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 Continue Pain Medications: Tylenol and OxyIR 3. DVT Prophylaxis: Currently on aspirin 81 mg twice daily but if patient does not mobilize appropriately we will increase his DVT prophylaxis to Lovenox. 4. PT/OT: Weightbearing as tolerated with walker. Continue with posterior hip dislocation precautions strictly for the next 3 months 5. Chronic iron deficiency anemia with postoperative blood loss: Today's H & H: 7.5/22.9, asymptomatic. Yesterday hemoglobin was 9.9. Patient has had 2 readings of lower blood pressure. He currently denies dizziness or lightheadedness. Patient did lose significant amount and surgery. Case was discussed with the hospitalist and patient may require 2 units packed red blood cells. 6. Encouraged Incentive Spirometry 7. Continue postoperative medical management per medicine: Case was discussed with Dr. Navarrete 8. Continue treatment per infectious disease: Patient is currently taking linezolid and fluconazole. Will cover with these antibiotics while following surgical cultures. Cultures are currently pending 9. Disposition: Patient will most likely require skilled care upon discharge. Case management is involved and patient is willing to go to the transitional care unit.
[2019-09-24] MEDS: Doxycycline 100 MG CAPSULE PO ×2 (09:07→21:51)
[2019-09-24] MEDS: Pantoprazole Sodium 20 MG Tablet PO (09:07)
[2019-09-24] MEDS: Iron Polysaccharide Complex 150 MG CAPSULE PO (09:07)
[2019-09-24] MEDS: Famotidine 20 MG Tablet PO (09:07)
[2019-09-24] MEDS: Senna/Docusate Sodium 1 Tablet 2 TABLET PO ×2 (09:07→21:52)
[2019-09-24] MEDS: Fluconazole 100 MG Tablet 200 MG PO (09:07)
[2019-09-24] MEDS: Amiodarone 200 MG Tablet PO (09:07)
[2019-09-24] MEDS: Aspirin 81 MG TAB.CHEW PO ×2 (09:07→16:12)
[2019-09-24] MEDS: Linezolid 600 MG Tablet PO ×2 (09:07→21:53)
[2019-09-24] MEDS: Ensure Surgery 237 ML LIQUID PO ×2 (09:10→11:19)
--- NOTE | 2019-09-24 09:49 | PN.ID_ITS ---
Subjective: Feeling ok, no fever, no n/v/d. - Physical Exam Vitals/I&O's: Vital Signs Temp Pulse Resp BP Pulse Ox 98.0 F 84 18 110/46 L 95 09/24/19 08:57 09/24/19 08:57 09/24/19 08:57 09/24/19 08:57 09/24/19 08:57 Oxygen Flow Rate (L/min) 6 Oxygen Delivery Method Room Air Weight: 108.862 kg Body Mass Index (BMI) 30.8 Intake and Output for Last 24 Hours 09/22/19 09/23/19 09/24/19 23:59 23:59 23:59 Intake Total 3480 / 3780 1600 / 1600 Output Total 120 / 370 700 / 700 Balance 3360 / 3410 900 / 900 General: Alert, Cooperative, No apparent distress Lungs: Clear to auscultation, Normal air movement Cardiovascular: Regular rate, Regular Rhythm Abdomen: Soft, Non Tender, Non-Distended Skin: No rashes Laboratory Results 09/23/19 09:15: Blood Type O POSITIVE, Antibody Screen NEGATIVE 09/23/19 09:20: POC Glucose 75 09/23/19 13:10: Hgb 9.9 L, Hct 31.0 L 09/24/19 06:00: WBC 11.8 H, RBC 2.43 L, Hgb 7.5 L, Hct 22.9 L, MCV 94.2 H, MCH 30.9, MCHC 32.8, RDW Std Deviation 50.5 H, RDW Coeff of Morenita 14.8 H, Plt Count 282, MPV 9.6 09/24/19 06:00: Sodium 136, Potassium 5.5 H, Chloride 103, Carbon Dioxide 26.0, Anion Gap 7, BUN 22 H, Creatinine 1.08, Estim Creat Clear Calc 60.25, Est GFR (MDRD) Af Amer 84, Est GFR (MDRD) Non-Af 69, BUN/Creatinine Ratio 20.4 H, Glucose 119 H, Calcium 8.4 L Current Medications Acetaminophen (Tylenol) 1,000 mg PO Q8 [facility] Last Admin: 09/24/19 05:30 Dose: 1,000 mg Documented by: Amiodarone HCl (Cordarone) 200 mg PO DAILY@0800 [facility] Last Admin: 09/24/19 09:07 Dose: 200 mg Documented by: [facility]) [facility] Last Admin: 09/24/19 09:07 Dose: 81 mg Documented by: Bisacodyl (Dulcolax) 10 mg PO DAILY PRN PRN Reason: Constipation Doxycycline Monohydrate (Doxycycline) 100 mg PO BID [facility] Last Admin: 09/24/19 09:07 Dose: 100 mg Documented by: Enteral Nutritional Formula (Ensure Surgery) 237 ml PO TIDCM [facility] Last Admin: 09/24/19 09:10 Dose: 237 ml Documented by: Famotidine (Pepcid) 20 mg PO DAILY [facility] Last Admin: 09/24/19 09:07 Dose: 20 mg Documented by: Fluconazole (Diflucan) 200 mg PO DAILY [facility] Last Admin: 09/24/19 09:07 Dose: 200 mg Documented by: Lactated Ringer's () 1,000 mls @ 125 mls/hr IV .Q8H [facility] Last Admin: 09/24/19 09:05 Dose: Not Given Documented by: Ketorolac Tromethamine (Toradol (Bkc)) 15 mg IV Q6H PRN PRN PRN Reason: Pain Score 1-5/10 Stop: 09/25/19 14:14 Linezolid (Zyvox) 600 mg PO BID [facility] Last Admin: 09/24/19 09:07 Dose: 600 mg Documented by: Meloxicam (Mobic) 7.5 mg PO BID [facility] Morphine Sulfate () 2 - 4 mg IV Q2H PRN PRN PRN Reason: Pain Score 4-10/10 Morphine Sulfate () 2 - 4 mg IV Q2H PRN PRN PRN Reason: Pain Score 4-10/10 Nystatin (Mycostatin Powder) 1 applic TOPICAL 0600,2200 [facility]; Protocol Last Admin: 09/24/19 05:30 Dose: 1 applicatio Documented by: Ondansetron HCl (Zofran) 4 mg IV Q8H PRN PRN PRN Reason: NAUSEA Oxycodone HCl (Oxyir) 5 - 10 mg PO Q4H PRN PRN PRN Reason: Pain Score 4-10/10 Pantoprazole Sodium (Protonix) 20 mg PO DAILY [facility] Last Admin: 09/24/19 09:07 Dose: 20 mg Documented by: Polysaccharide [facility] (Ferrex 150) [facility] Last Admin: 09/24/19 09:07 Dose: 150 mg Documented by: Promethazine HCl (Phenergan) 12.5 mg IM Q6H PRN PRN; Protocol PRN Reason: NAUSEA/VOMITING Senna/Docusate Sodium (Senokot-S, Herminia-Colace) 2 tablet PO BID [facility] Last Admin: 09/24/19 09:07 Dose: 2 tablet Documented by: Sodium Chloride () 10 - 40 ml IV UD PRN PRN Reason: SALINE FLUSH Medical Necessity - Tobacco Use Smoking Status: Never smoker Tobacco Use: Non-smoker Route of nutrition/ use of supplements: [] Nutritional Intake: [] IV Site: [] Powell Catheter: [] - Assessment/Plan Antibiotics: [] Assessment/Plan: [] Now s/p spacer removal and prosthetic joint placement today 09/23/[address] Collado. H/o CoNS, VRE, and melissa PJI. Will cover with po linezolid and fluc for now while surg cx pending. Plan on 2 week total course until cxs are finalized. Will follow, d/w ortho
--- NOTE | 2019-09-24 11:02 | CASEMGMT ---
Social Work Note PA updated this worker that pt is agreeable to returning to TCU at discharge. SELVIN spoke with Katlin in TCU who states she does have a bed for pt and will submit for pre-cert once PT/OT evaluates pt. SELVIN in to speak with pt. SELVIN introduced self and role at [facility]. Pt is alert and orientated x3. Pt confirms that he wishes to return to TCU. SELVIN informed pt that pre-cert will need to be submitted and if this worker doesn't hear anything by tomorrow, pt will be at [facility] through the weekend. Pt states understanding. 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
[2019-09-24 12:55] VITALS: BMI 30.8
[2019-09-24 14:45] VITALS: BP 118/54; PULSE 89; RESP 20; TEMP 36.9; O2SAT 96
--- NOTE | 2019-09-24 15:33 | PCM.PROGNOTE ---
Subjective: Patient was seen and examined today, I briefly talked with orthopedic surgery about his care, orthopedic surgery said there was quite a bit of bleeding during patient's surgery, his hemoglobin today was 7.5-down from 9.9 yesterday. Patient is asymptomatic however, his blood pressure is good. I have elected not to give him any blood at this time, patient would like to go to TCU for inpatient rehab services rather than go home. - Physical Exam Vitals/I&O's: Vital Signs Temp Pulse Resp BP Pulse Ox 98.4 F 89 20 H 118/54 L 96 09/24/19 14:45 09/24/19 14:45 09/24/19 14:45 09/24/19 14:45 09/24/19 14:45 Oxygen Flow Rate (L/min) 6 Oxygen Delivery Method Room Air Weight: 108.862 kg Body Mass Index (BMI) 30.8 Intake and Output for Last 24 Hours 09/22/19 09/23/19 09/24/19 23:59 23:59 23:59 Intake Total 3480 / 3780 1840 / 1840 Output Total 120 / 370 800 / 800 Balance 3360 / 3410 1040 / 1040 General: Alert, Oriented x3, Cooperative, No apparent distress, Well developed HEENT: Atraumatic, PERRLA, EOMI, Normocephalic Oral: Moist Mucosa Neck: Supple, No JVD, Negative Carotid Bruits, Trachea Midline, Thyroid Normal Size and Texture Lungs: Clear to auscultation, Normal air movement, No rhonchi, No wheeze, No rales Cardiovascular: Regular rate, Regular Rhythm, Normal S1, Normal S2, No murmurs, PMI Normal, No rub noted Abdomen: Bowel Sounds Present, Soft, Non Tender, Non-Distended, No hernias noted Extremities: No clubbing, No cyanosis, Capillary Refill Less than 3 Seconds Skin: No rashes Neurological: Cranial nerves II-XII grossly intact, Neuro grossly intact, Sensory exam intact to light touch and pain, Coordination normal Psych/Mental Status: Normal Affect, Appropriate, Alert and oriented to time, place, person, mood and affect Microbiology Past 72 Hours 09/23/19 12:17 Tissue - Hip Gram Stain - Final 09/23/19 12:17 Tissue - Hip Wound Culture - Preliminary No growth-Final to follow 09/23/19 12:14 Tissue - Hip Gram Stain - Final 09/23/19 12:14 Tissue - Hip Wound Culture - Preliminary No growth-Final to follow 09/23/19 12:12 Tissue - Hip Gram Stain - Final 09/23/19 12:12 Tissue - Hip Wound Culture - Preliminary No growth-Final to follow 09/23/19 12:06 Tissue - Hip Gram Stain - Final 09/23/19 12:06 Tissue - Hip Wound Culture - Preliminary No growth-Final to follow 09/23/19 12:04 Tissue - Hip Gram Stain - Final 09/23/19 12:04 Tissue - Hip Wound Culture - Preliminary No growth-Final to follow Laboratory Results 09/24/19 06:00: WBC 11.8 H, RBC 2.43 L, Hgb 7.5 L, Hct 22.9 L, MCV 94.2 H, MCH 30.9, MCHC 32.8, RDW Std Deviation 50.5 H, RDW Coeff of Morenita 14.8 H, Plt Count 282, MPV 9.6 09/24/19 06:00: Sodium 136, Potassium 5.5 H, Chloride 103, Carbon Dioxide 26.0, Anion Gap 7, BUN 22 H, Creatinine 1.08, Estim Creat Clear Calc 60.25, Est GFR (MDRD) Af Amer 84, Est GFR (MDRD) Non-Af 69, BUN/Creatinine Ratio 20.4 H, Glucose 119 H, Calcium 8.4 L Current Medications Acetaminophen (Tylenol) 1,000 mg PO Q8 [facility] Last Admin: 09/24/19 14:39 Dose: 1,000 mg Documented by: Amiodarone HCl (Cordarone) 200 mg PO DAILY@0800 [facility] Last Admin: 09/24/19 09:07 Dose: 200 mg Documented by: [facility], [facility]) [facility] Last Admin: 09/24/19 09:07 Dose: 81 mg Documented by: Bisacodyl (Dulcolax) 10 mg PO DAILY PRN PRN Reason: Constipation Doxycycline Monohydrate (Doxycycline) 100 mg PO BID [facility] Last Admin: 09/24/19 09:07 Dose: 100 mg Documented by: Enteral Nutritional Formula (Ensure Surgery) 237 ml PO TIDCM [facility] Last Admin: 09/24/19 11:19 Dose: 237 ml Documented by: Famotidine (Pepcid) 20 mg PO DAILY [facility] Last Admin: 09/24/19 09:07 Dose: 20 mg Documented by: Fluconazole (Diflucan) 200 mg PO DAILY [facility] Last Admin: 09/24/19 09:07 Dose: 200 mg Documented by: Ketorolac Tromethamine (Toradol (Bkc)) 15 mg IV Q6H PRN PRN PRN Reason: Pain Score 1-5/10 Stop: 09/25/19 14:14 Linezolid (Zyvox) 600 mg PO BID [facility] Last Admin: 09/24/19 09:07 Dose: 600 mg Documented by: Meloxicam (Mobic) 7.5 mg PO BID [facility] Morphine Sulfate () 2 - 4 mg IV Q2H PRN PRN PRN Reason: Pain Score 4-10/10 Morphine Sulfate () 2 - 4 mg IV Q2H PRN PRN PRN Reason: Pain Score 4-10/10 Nystatin (Mycostatin Powder) 1 applic TOPICAL 0600,2200 [facility]; Protocol Last Admin: 09/24/19 05:30 Dose: 1 applicatio Documented by: Ondansetron HCl (Zofran) 4 mg IV Q8H PRN PRN PRN Reason: NAUSEA Oxycodone HCl (Oxyir) 5 - 10 mg PO Q4H PRN PRN PRN Reason: Pain Score 4-10/10 Pantoprazole Sodium (Protonix) 20 mg PO DAILY [facility] Last Admin: 09/24/19 09:07 Dose: 20 mg Documented by: Polysaccharide Iron Complex (Ferrex 150) [facility] Last Admin: 09/24/19 09:07 Dose: 150 mg Documented by: Promethazine HCl (Phenergan) 12.5 mg IM Q6H PRN PRN; Protocol PRN Reason: NAUSEA/VOMITING Senna/Docusate Sodium (Senokot-S, Herminia-Colace) 2 tablet PO BID [facility] Last Admin: 09/24/19 09:07 Dose: 2 tablet Documented by: Sodium Chloride () 10 - 40 ml IV UD PRN PRN Reason: SALINE FLUSH Medical Necessity - Tobacco Use Smoking Status: Never smoker Tobacco Use: Non-smoker Assessment/Plan All Active Problems Debility (Resolved) Hip hematoma, left (Resolved) Hip dislocation, left (Resolved) Toe pain, left (Resolved) Toe pain, right (Resolved) Sternal fracture (Resolved) Multiple rib fractures (Resolved) Lumbar transverse process fracture (Resolved) Sacral fracture, closed (Resolved) Fracture of left inferior pubic ramus (Resolved) Fracture of ischial tuberosity (Resolved) Open fracture of right proximal tibia (Resolved) Open fracture of right distal tibia (Resolved) Open fracture of right humerus (Resolved) Right scapula fracture (Resolved) Closed fracture of right distal femur (Resolved) Left femoral shaft fracture (Resolved) Small bowel obstruction (Resolved) Pneumocytosis (Resolved) Metacarpal bone fracture (Resolved) Fracture, metacarpal shaft (Resolved) CMC arthritis, thumb, 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) Right foot pain (Resolved) #1 cardiac arrhythmia-paroxysmal atrial fibrillation-patient has past history of atrial fibrillation, he is currently on amiodarone, patient appears to be in normal sinus rhythm at this time #2 chronic iron deficiency anemia-patient is currently on iron as an outpatient #3 revision left total hip replacement, conversion from antibiotic spacer to total hip replacement-postop day #1-continue PT and OT, patient will need temporary placement in custodial facility #4 acute on chronic anemia secondary to expected blood loss from revision left total hip replacement-I will recheck the patient's H&H tomorrow, I do not feel he needs a blood transfusion at this time. I have decided to give the patient Venofer today and tomorrow. 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
--- NOTE | 2019-09-24 16:03 | CHAPLAIN ---
Type of Pastoral Visit _x__ Initial Visit ___ Follow-up Visit ___ On-call Visit ___ General Patient Visit ___ Spiritual Assessment ___ Family Conference ___ Bereavement ___ Rapid Response ___ Code Blue ___ Other (describe below) Pastoral Care Referral From _x__ Patient ___ Family ___ Nurse ___ Physician ___ Millwright Helper ___ Grave Cleaner ___ Other (describe below) Sacrament/Intervention _x__ Active listening ___ Anointing ___ Advent ___ Bereavement ___ Communion ___ Gissell exploration ___ ___ Life review ___ Prayer ___ Reconciliation ___ Sacrament of Sick _x__ Supportive presence ___ Wedding ___ Other (describe below) Pastoral Comments
[2019-09-24 16:47] VITALS: BMI 30.8
[2019-09-24] MEDS: 0.9% Saline Lock 10 ML Syringe IV ×2 (17:01→22:00)
[2019-09-24 20:57] VITALS: BMI 30.8
[2019-09-24 22:00] VITALS: RESP 18
[2019-09-24 22:03] VITALS: BP 114/56; PULSE 73; RESP 18; TEMP 36.6; O2SAT 98
[2019-09-25] VITALS (13 sets, daily range): BP systolic 93–142; BP diastolic 40–72; PULSE 71–82; RESP 16–18; TEMP 36.2–37.4; O2SAT 97–100
[2019-09-25] MEDS: Acetaminophen 500 MG Tablet 1000 MG PO ×3 (05:21→21:54)
[2019-09-25 06:21] LABS: Hematocrit 19.2 % (40-54); Hemoglobin 6.4 g/dL (13.0-16.5); Mean Corp Hgb Conc 33.3 g/dL (32-36); Mean Corpuscular Hgb 31.7 pg (27.0-32.0); Mean Platelet Vol. 9.5 fl (6.2-12.0); Platelet Count 201 K/mm3 (150-450); RBC Distribution Width CV 15.2 % (11.6-14.6); RBC Distribution Width SD 52.3 fl (35.1-43.9); Red Blood Count 2.02 M/mm3 (4.6-6.2); White Blood Count 6.9 K/mm3 (4.4-11.0)
--- NOTE | 2019-09-25 06:47 | PCM.PN.ORT ---
Subjective: The patient was sitting in bed upon examination. Patient denies any chest pain, shortness of breath, dizziness, lightheadedness, nausea or vomiting, or calf pain. Pain is controlled on medications. No adverse overnight events. Patient had therapy yesterday and required assist and did have difficulty with walking. Plan is for patient to go to the transitional care unit and we are waiting pre-CERT. Discussed with nursing and there is been 8 mL drainage from the Hemovac drain. With regards to output patient had 470 mL yesterday and this morning only had 8 mL output. Patient's hemoglobin has dropped from 7.5-6.4 today. Case was discussed with hospitalist yesterday and they wanted to see how patient responded with his hemoglobin today prior to transfusing the patient. Patient was asymptomatic yesterday. Currently he denies any dizziness or lightheadedness. He states he felt different when he was up with therapy but did not feel as if he was going to pass out. Objective: Vital signs stable and afebrile. Patient is able to plantarflex and dorsiflex actively. Patient's last blood pressure reading was 104/58 Sensation is intact to light touch to saphenous, sural, superficial and deep peroneal, and tibial distribution. Dressing is clean dry and intact. Hemovac drain in place with minimal output. Discussed with nurse and there is been only 8 mL of output since yesterday when there was 470 mL. Patient's thigh is soft and supple Negative Homans bilaterally, negative signs and symptoms of DVT. - Physical Exam Vitals/I&O's: Vital Signs Temp Pulse Resp BP Pulse Ox 98.0 F 72 16 104/58 L 97 09/25/19 05:00 09/25/19 05:00 09/25/19 05:00 09/25/19 05:00 09/25/19 05:00 Oxygen Flow Rate (L/min) 6 Oxygen Delivery Method Room Air Weight: 108.862 kg Body Mass Index (BMI) 30.8 Intake and Output for Last 24 Hours 09/23/19 09/24/19 09/25/19 23:59 23:59 23:59 Intake Total 3480 / 3780 2310 / 2510 250 / 250 Output Total 120 / 370 800 / 925 425 / 425 Balance 3360 / 3410 1510 / 1585 -175 / -175 General: Alert, Oriented x3, Cooperative, No apparent distress Microbiology Past 72 Hours 09/23/19 12:17 Tissue - Hip Gram Stain - Final 09/23/19 12:17 Tissue - Hip Wound Culture - Preliminary No growth-Final to follow 09/23/19 12:14 Tissue - Hip Gram Stain - Final 09/23/19 12:14 Tissue - Hip Wound Culture - Preliminary No growth-Final to follow 09/23/19 12:12 Tissue - Hip Gram Stain - Final 09/23/19 12:12 Tissue - Hip Wound Culture - Preliminary No growth-Final to follow 09/23/19 12:06 Tissue - Hip Gram Stain - Final 09/23/19 12:06 Tissue - Hip Wound Culture - Preliminary No growth-Final to follow 09/23/19 12:04 Tissue - Hip Gram Stain - Final 09/23/19 12:04 Tissue - Hip Wound Culture - Preliminary No growth-Final to follow Laboratory Results 09/24/19 06:00: Sodium 136, Potassium 5.5 H, Chloride 103, Carbon Dioxide 26.0, Anion Gap 7, BUN 22 H, Creatinine 1.08, Estim Creat Clear Calc 60.25, Est GFR (MDRD) Af Amer 84, Est GFR (MDRD) Non-Af 69, BUN/Creatinine Ratio 20.4 H, Glucose 119 H, Calcium 8.4 L 09/25/19 05:57: WBC 6.9, RBC 2.02 L, Hgb 6.4 L, Hct 19.2 L, MCV 95.0 H, MCH 31.7, MCHC 33.3, RDW Std Deviation 52.3 H, RDW Coeff of Morenita 15.2 H, Plt Count 201, MPV 9.5 Current Medications Acetaminophen (Tylenol) 1,000 mg PO Q8 [facility] Last Admin: 09/25/19 05:21 Dose: 1,000 mg Documented by: Amiodarone HCl (Cordarone) 200 mg PO DAILY@0800 [facility] Last Admin: 09/24/19 09:07 Dose: 200 mg Documented by: [facility] Last Admin: 09/24/19 16:12 Dose: 81 mg Documented by: Bisacodyl (Dulcolax) 10 mg PO DAILY PRN PRN Reason: Constipation Doxycycline Monohydrate (Doxycycline) 100 mg PO BID [facility] Last Admin: 09/24/19 21:51 Dose: 100 mg Documented by: Enteral Nutritional Formula (Ensure Surgery) 237 ml PO TIDCM [facility] Last Admin: 09/24/19 16:10 Dose: Not Given Documented by: Famotidine (Pepcid) 20 mg PO DAILY [facility] Last Admin: 09/24/19 09:07 Dose: 20 mg Documented by: Fluconazole (Diflucan) 200 mg PO DAILY [facility] Last Admin: 09/24/19 09:07 Dose: 200 mg Documented by: Ketorolac Tromethamine (Toradol (Bkc)) 15 mg IV Q6H PRN PRN PRN Reason: Pain Score 1-5/10 Stop: 09/25/19 14:14 Linezolid (Zyvox) 600 mg PO BID [facility] Last Admin: 09/24/19 21:53 Dose: 600 mg Documented by: Meloxicam (Mobic) 7.5 mg PO BID [facility] Morphine Sulfate () 2 - 4 mg IV Q2H PRN PRN PRN Reason: Pain Score 4-10/10 Morphine Sulfate () 2 - 4 mg IV Q2H PRN PRN PRN Reason: Pain Score 4-10/10 Nystatin (Mycostatin Powder) 1 applic TOPICAL 0600,2200 [facility]; Protocol Last Admin: 09/25/19 05:24 Dose: Not Given Documented by: Ondansetron HCl (Zofran) 4 mg IV Q8H PRN PRN PRN Reason: NAUSEA Oxycodone HCl (Oxyir) 5 - 10 mg PO Q4H PRN PRN PRN Reason: Pain Score 4-10/10 Pantoprazole Sodium (Protonix) 20 mg PO DAILY [facility] Last Admin: 09/24/19 09:07 Dose: 20 mg Documented by: Polysaccharide Iron Complex (Ferrex 150) [facility] Last Admin: 09/24/19 09:07 Dose: 150 mg Documented by: Promethazine HCl (Phenergan) 12.5 mg IM Q6H PRN PRN; Protocol PRN Reason: NAUSEA/VOMITING Senna/Docusate Sodium (Senokot-S, Herminia-Colace) 2 tablet PO BID [facility] Last Admin: 09/24/19 21:52 Dose: 2 tablet Documented by: Sodium Chloride () 10 - 40 ml IV UD PRN PRN Reason: SALINE FLUSH Last Admin: 09/24/19 22:00 Dose: 10 ml Documented by: Medical Necessity - Tobacco Use Smoking Status: Never smoker Tobacco Use: Non-smoker Assessment/Plan All Active Problems Debility (Resolved) Hip hematoma, left (Resolved) Hip dislocation, left (Resolved) Toe pain, left (Resolved) Toe pain, right (Resolved) Sternal fracture (Resolved) Multiple rib fractures (Resolved) Lumbar transverse process fracture (Resolved) Sacral fracture, closed (Resolved) Fracture of left inferior pubic ramus (Resolved) Fracture of ischial tuberosity (Resolved) Open fracture of right proximal tibia (Resolved) Open fracture of right distal tibia (Resolved) Open fracture of right humerus (Resolved) Right scapula fracture (Resolved) Closed fracture of right distal femur (Resolved) Left femoral shaft fracture (Resolved) Small bowel obstruction (Resolved) Pneumocytosis (Resolved) Metacarpal bone fracture (Resolved) Fracture, metacarpal shaft (Resolved) CMC arthritis, thumb, 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 Continue Pain Medications: Tylenol and OxyIR 3. DVT Prophylaxis: Currently on aspirin 81 mg twice daily but if patient does not mobilize appropriately we will increase his DVT prophylaxis to Lovenox. 4. PT/OT: Weightbearing as tolerated with walker. Continue with posterior hip dislocation precautions strictly for the next 3 months 5. Chronic iron deficiency anemia with postoperative blood loss: Today's H & H: 6.4/19.2, most recent blood pressure reading 104/58. Yesterday hemoglobin was 7.5. Patient will most likely require transfusion today. Case was discussed with the hospitalist and wanted to see patient's response with hemoglobin today. If continues to drop would most likely transfuse. 6. Encouraged Incentive Spirometry 7. Continue postoperative medical management per medicine: 8. Continue treatment per infectious disease: Patient is currently taking linezolid and fluconazole. Will cover with these antibiotics while following surgical cultures. Cultures currently without any growth or organisms seen 9. Hemovac drain: Yesterday output was 470 mL and today there is only been 8 mL. Patient will require transfusion today and we will see how patient does and possibly remove drain tomorrow if there is limited output. 10. Disposition: Patient will require transfusion today. We would like to follow the patient to see how he responds. Continue to monitor the drain and plan would be for discharge to transitional care unit tomorrow as long as patient has pre-CERT obtained.
[2019-09-25] MEDS: Iron Polysaccharide Complex 150 MG CAPSULE PO (08:28)
[2019-09-25] MEDS: Linezolid 600 MG Tablet PO ×2 (08:28→21:54)
[2019-09-25] MEDS: Senna/Docusate Sodium 1 Tablet 2 TABLET PO (08:28)
[2019-09-25] MEDS: Amiodarone 200 MG Tablet PO (08:28)
[2019-09-25] MEDS: Aspirin 81 MG TAB.CHEW PO ×2 (08:29→16:58)
[2019-09-25] MEDS: Meloxicam 7.5 MG Tablet PO ×2 (08:29→21:55)
[2019-09-25] MEDS: Pantoprazole Sodium 20 MG Tablet PO (08:29)
[2019-09-25] MEDS: Doxycycline 100 MG CAPSULE PO (08:29)
[2019-09-25] MEDS: Fluconazole 100 MG Tablet 200 MG PO (08:29)
[2019-09-25] MEDS: Famotidine 20 MG Tablet PO (08:29)
[2019-09-25] MEDS: Ensure Surgery 237 ML LIQUID PO ×3 (08:37→16:59)
--- NOTE | 2019-09-25 10:22 | CASEMGMT ---
Addendum entered by Charline Lynne 09/25/19 14:06: SW placed green sheet on chart in the event pre-cert is obtained. Original Note: Social Work Note Per PA pt is getting blood transfused today will not be able to discharge today if pre-cert is obtained. SW updated PA that this worker is still waiting to hear from pre-cert. Plan: TCU pending pre-cert Charline Lynne [employer], [employer]
[2019-09-25 15:45] LABS: Hematocrit 24.9 % (40-54); Hemoglobin 8.1 g/dL (13.0-16.5)
--- NOTE | 2019-09-25 17:00 | PN_ITS ---
Subjective: Patient was seen and examined today, he had 2 units of packed red blood cells transfused due to a low hemoglobin this morning. Patient has no complaints of any fever chills or chest pain. - Physical Exam Vitals/I&O's: Vital Signs Temp Pulse Resp BP Pulse Ox 98.8 F 77 18 112/45 L 97 09/25/19 13:56 09/25/19 13:56 09/25/19 13:56 09/25/19 15:04 09/25/19 13:56 Oxygen Flow Rate (L/min) 6 Oxygen Delivery Method Room Air Weight: 108.862 kg Body Mass Index (BMI) 30.8 Intake and Output for Last 24 Hours 09/23/19 09/24/19 09/25/19 23:59 23:59 23:59 Intake Total 3480 / 3780 2310 / 2510 1410 / 1410 Output Total 120 / 370 800 / 925 830 / 830 Balance 3360 / 3410 1510 / 1585 580 / 580 General: Alert, Oriented x3, Cooperative, No apparent distress, Well developed HEENT: Atraumatic, PERRLA, EOMI, Normocephalic Oral: Moist Mucosa Neck: Supple, No JVD, Trachea Midline, Thyroid Normal Size and Texture Lungs: Clear to auscultation, Normal air movement, No rhonchi, No wheeze, No rales Cardiovascular: Regular rate, Regular Rhythm, Normal S1, Normal S2, No murmurs, PMI Normal, No rub noted Abdomen: Bowel Sounds Present, Soft, Non Tender, Non-Distended Extremities: No clubbing, No cyanosis, Capillary Refill Less than 3 Seconds Skin: No rashes, No breakdown Musculoskeletal: No Tenderness to Palpation of Joints or Extremities Neurological: Cranial nerves II-XII grossly intact, Neuro grossly intact, Sensory exam intact to light touch and pain, Coordination normal Psych/Mental Status: Normal Affect, Appropriate, Alert and oriented to time, place, person, mood and affect Microbiology Past 72 Hours 09/23/19 12:17 Tissue - Hip Gram Stain - Final 09/23/19 12:17 Tissue - Hip Wound Culture - Preliminary No growth-Final to follow 09/23/19 12:17 Tissue - Hip Anaerobic Culture - Preliminary No growth in 48 hours. 09/23/19 12:14 Tissue - Hip Gram Stain - Final 09/23/19 12:14 Tissue - Hip Wound Culture - Preliminary No growth-Final to follow 09/23/19 12:14 Tissue - Hip Anaerobic Culture - Preliminary No growth in 48 hours. 09/23/19 12:12 Tissue - Hip Gram Stain - Final 09/23/19 12:12 Tissue - Hip Wound Culture - Preliminary No growth-Final to follow 09/23/19 12:12 Tissue - Hip Anaerobic Culture - Preliminary No growth in 48 hours. 09/23/19 12:06 Tissue - Hip Gram Stain - Final 09/23/19 12:06 Tissue - Hip Wound Culture - Preliminary No growth-Final to follow 09/23/19 12:06 Tissue - Hip Anaerobic Culture - Preliminary No growth in 48 hours. 09/23/19 12:04 Tissue - Hip Gram Stain - Final 09/23/19 12:04 Tissue - Hip Wound Culture - Preliminary No growth-Final to follow 09/23/19 12:04 Tissue - Hip Anaerobic Culture - Preliminary No growth in 48 hours. Laboratory Results 09/23/19 09:15: Crossmatch See Detail 09/25/19 05:57: WBC 6.9, RBC 2.02 L, Hgb 6.4 L, Hct 19.2 L, MCV 95.0 H, MCH 31.7, MCHC 33.3, RDW Std Deviation 52.3 H, RDW Coeff of Morenita 15.2 H, Plt Count 201, MPV 9.5 09/25/19 15:36: Hgb 8.1 L, Hct 24.9 L Current Medications Acetaminophen (Tylenol) 1,000 mg PO Q8 [facility] Last Admin: 09/25/19 13:46 Dose: 1,000 mg Documented by: Amiodarone HCl (Cordarone) 200 mg PO DAILY@0800 [facility] Last Admin: 09/25/19 08:28 Dose: 200 mg Documented by: Aspirin (Aspirin, Baby) 81 mg PO BIDCM [facility] Last Admin: 09/25/19 16:58 Dose: 81 mg Documented by: Bisacodyl (Dulcolax) 10 mg PO DAILY PRN PRN Reason: Constipation Enteral Nutritional Formula (Ensure Surgery) 237 ml PO TIDCM [facility] Last Admin: 09/25/19 16:59 Dose: 237 ml Documented by: Famotidine (Pepcid) 20 mg PO DAILY [facility] Last Admin: 09/25/19 08:29 Dose: 20 mg Documented by: Fluconazole (Diflucan) 200 mg PO DAILY [facility] Last Admin: 09/25/19 08:29 Dose: 200 mg Documented by: Linezolid (Zyvox) 600 mg PO BID [facility] Last Admin: 09/25/19 08:28 Dose: 600 mg Documented by: Meloxicam (Mobic) 7.5 mg PO BID [facility] Last Admin: 09/25/19 08:29 Dose: 7.5 mg Documented by: Morphine Sulfate () 2 - 4 mg IV Q2H PRN PRN PRN Reason: Pain Score 4-10/10 Morphine Sulfate () 2 - 4 mg IV Q2H PRN PRN PRN Reason: Pain Score 4-10/10 Nystatin (Mycostatin Powder) 1 applic TOPICAL 0600,2200 [facility]; Protocol Last Admin: 09/25/19 05:24 Dose: Not Given Documented by: Ondansetron HCl (Zofran) 4 mg IV Q8H PRN PRN PRN Reason: NAUSEA Oxycodone HCl (Oxyir) 5 - 10 mg PO Q4H PRN PRN PRN Reason: Pain Score 4-10/10 Pantoprazole Sodium (Protonix) 20 mg PO DAILY [facility] Last Admin: 09/25/19 08:29 Dose: 20 mg Documented by: [facility] 150[facility] Last Admin: 09/25/19 08:28 Dose: 150 mg Documented by: Promethazine HCl (Phenergan) 12.5 mg IM Q6H PRN PRN; Protocol PRN Reason: NAUSEA/VOMITING Senna/Docusate Sodium (Senokot-S, Herminia-Colace) 2 tablet PO BID [facility] Last Admin: 09/25/19 08:28 Dose: 2 tablet Documented by: Sodium Chloride () 10 - 40 ml IV UD PRN PRN Reason: SALINE FLUSH Last Admin: 09/24/19 22:00 Dose: 10 ml Documented by: Medical Necessity - Tobacco Use Smoking Status: Never smoker Tobacco Use: Non-smoker Assessment/Plan All Active Problems Debility (Resolved) Hip hematoma, left (Resolved) Hip dislocation, left (Resolved) Toe pain, left (Resolved) Toe pain, right (Resolved) Sternal fracture (Resolved) Multiple rib fractures (Resolved) Lumbar transverse process fracture (Resolved) Sacral fracture, closed (Resolved) Fracture of left inferior pubic ramus (Resolved) Fracture of ischial tuberosity (Resolved) Open fracture of right proximal tibia (Resolved) Open fracture of right distal tibia (Resolved) Open fracture of right humerus (Resolved) Right scapula fracture (Resolved) Closed fracture of right distal femur (Resolved) Left femoral shaft fracture (Resolved) Small bowel obstruction (Resolved) Pneumocytosis (Resolved) Metacarpal bone fracture (Resolved) Fracture, metacarpal shaft (Resolved) CMC arthritis, thumb, 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) Right foot pain (Resolved) #1 cardiac arrhythmia-paroxysmal atrial fibrillation-patient has past history of atrial fibrillation, he is currently on amiodarone, patient appears to be in normal sinus rhythm at this time #2 chronic iron deficiency anemia-patient is currently on iron as an outpatient #3 revision left total hip replacement, conversion from antibiotic spacer to total hip replacement-postop day #1-continue PT and OT, patient will need temporary placement in care home facility #4 acute on chronic anemia secondary to expected blood loss from revision left total hip replacement-patient's hemoglobin after transfusion today was 8.1, CBC will be rechecked tomorrow #5 GERD #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 Inpatient E&M: 02727 [facility] L2
--- NOTE | 2019-09-25 18:03 | PCM.PN.ID ---
Subjective: Feeling fine, d/c to TCU planned, no fever - Physical Exam Vitals/I&O's: Vital Signs Temp Pulse Resp BP Pulse Ox 98.8 F 77 18 112/45 L 97 09/25/19 13:56 09/25/19 13:56 09/25/19 13:56 09/25/19 15:04 09/25/19 13:56 Oxygen Flow Rate (L/min) 6 Oxygen Delivery Method Room Air Weight: 108.862 kg Body Mass Index (BMI) 30.8 Intake and Output for Last 24 Hours 09/23/19 09/24/19 09/25/19 23:59 23:59 23:59 Intake Total 3480 / 3780 2310 / 2510 1810 / 1810 Output Total 120 / 370 800 / 925 1380 / 1380 Balance 3360 / 3410 1510 / 1585 430 / 430 General: Alert, Cooperative, No apparent distress Lungs: Clear to auscultation, Normal air movement Cardiovascular: Regular rate, Regular Rhythm Abdomen: Soft, Non Tender, Non-Distended Skin: No rashes Microbiology Past 72 Hours 09/23/19 12:17 Tissue - Hip Gram Stain - Final 09/23/19 12:17 Tissue - Hip Wound Culture - Preliminary No growth-Final to follow 09/23/19 12:17 Tissue - Hip Anaerobic Culture - Preliminary No growth in 48 hours. 09/23/19 12:14 Tissue - Hip Gram Stain - Final 09/23/19 12:14 Tissue - Hip Wound Culture - Preliminary No growth-Final to follow 09/23/19 12:14 Tissue - Hip Anaerobic Culture - Preliminary No growth in 48 hours. 09/23/19 12:12 Tissue - Hip Gram Stain - Final 09/23/19 12:12 Tissue - Hip Wound Culture - Preliminary No growth-Final to follow 09/23/19 12:12 Tissue - Hip Anaerobic Culture - Preliminary No growth in 48 hours. 09/23/19 12:06 Tissue - Hip Gram Stain - Final 09/23/19 12:06 Tissue - Hip Wound Culture - Preliminary No growth-Final to follow 09/23/19 12:06 Tissue - Hip Anaerobic Culture - Preliminary No growth in 48 hours. 09/23/19 12:04 Tissue - Hip Gram Stain - Final 09/23/19 12:04 Tissue - Hip Wound Culture - Preliminary No growth-Final to follow 09/23/19 12:04 Tissue - Hip Anaerobic Culture - Preliminary No growth in 48 hours. Laboratory Results 09/23/19 09:15: Crossmatch See Detail 09/25/19 05:57: WBC 6.9, RBC 2.02 L, Hgb 6.4 L, Hct 19.2 L, MCV 95.0 H, MCH 31.7, MCHC 33.3, RDW Std Deviation 52.3 H, RDW Coeff of Morenita 15.2 H, Plt Count 201, MPV 9.5 09/25/19 15:36: Hgb 8.1 L, Hct 24.9 L Current Medications Acetaminophen (Tylenol) 1,000 mg PO Q8 [facility] Last Admin: 09/25/19 13:46 Dose: 1,000 mg Documented by: Amiodarone HCl (Cordarone) 200 mg PO DAILY@0800 [facility] Last Admin: 09/25/19 08:28 Dose: 200 mg Documented by: [facility], [facility]) [facility] Last Admin: 09/25/19 16:58 Dose: 81 mg Documented by: Bisacodyl (Dulcolax) 10 mg PO DAILY PRN PRN Reason: Constipation Enteral Nutritional Formula (Ensure Surgery) 237 ml PO TIDCM [facility] Last Admin: 09/25/19 16:59 Dose: 237 ml Documented by: Famotidine (Pepcid) 20 mg PO DAILY [facility] Last Admin: 09/25/19 08:29 Dose: 20 mg Documented by: Fluconazole (Diflucan) 200 mg PO DAILY [facility] Last Admin: 09/25/19 08:29 Dose: 200 mg Documented by: Linezolid (Zyvox) 600 mg PO BID [facility] Last Admin: 09/25/19 08:28 Dose: 600 mg Documented by: Meloxicam (Mobic) 7.5 mg PO BID [facility] Last Admin: 09/25/19 08:29 Dose: 7.5 mg Documented by: Morphine Sulfate () 2 - 4 mg IV Q2H PRN PRN PRN Reason: Pain Score 4-10/10 Morphine Sulfate () 2 - 4 mg IV Q2H PRN PRN PRN Reason: Pain Score 4-10/10 Nystatin (Mycostatin Powder) 1 applic TOPICAL 0600,2200 [facility]; Protocol Last Admin: 09/25/19 05:24 Dose: Not Given Documented by: Ondansetron HCl (Zofran) 4 mg IV Q8H PRN PRN PRN Reason: NAUSEA Oxycodone HCl (Oxyir) 5 - 10 mg PO Q4H PRN PRN PRN Reason: Pain Score 4-10/10 Pantoprazole Sodium (Protonix) 20 mg PO DAILY [facility] Last Admin: 09/25/19 08:29 Dose: 20 mg Documented by: Polysaccharide Iron Complex (Ferrex 150) [facility] Last Admin: 09/25/19 08:28 Dose: 150 mg Documented by: Promethazine HCl (Phenergan) 12.5 mg IM Q6H PRN PRN; Protocol PRN Reason: NAUSEA/VOMITING Senna/Docusate Sodium (Senokot-S, Herminia-Colace) 2 tablet PO BID [facility] Last Admin: 09/25/19 08:28 Dose: 2 tablet Documented by: Sodium Chloride () 10 - 40 ml IV UD PRN PRN Reason: SALINE FLUSH Last Admin: 09/24/19 22:00 Dose: 10 ml Documented by: Medical Necessity - Tobacco Use Smoking Status: Never smoker Tobacco Use: Non-smoker Route of nutrition/ use of supplements: [] Nutritional Intake: [] IV Site: [] Powell Catheter: [] - Assessment/Plan Antibiotics: [] Assessment/Plan: [] Now s/p spacer removal and prosthetic joint placement today 09/23/[address] Collado. H/o CoNS, VRE, and melissa PJI. Will cover with po linezolid and fluc for now while surg cx pending. Plan on 2 week total course until cxs are finalized. Will follow, d/w ortho
[2019-09-25] MEDS: Nystatin Powder 15gm Bottle 1 APPLIC TOPICAL (21:54)
[2019-09-26 02:24] VITALS: BP 120/60; PULSE 72; RESP 18; TEMP 36.8; O2SAT 97
[2019-09-26] MEDS: Nystatin Powder 15gm Bottle 1 APPLIC TOPICAL ×2 (06:14→21:23)
[2019-09-26] MEDS: Acetaminophen 500 MG Tablet 1000 MG PO ×3 (06:14→21:22)
[2019-09-26 07:10] LABS: Hematocrit 24.4 % (40-54); Hemoglobin 7.8 g/dL (13.0-16.5); Mean Corpuscular Hgb 30.4 pg (27.0-32.0); Mean Corpuscular Volume 94.9 fL (80-94); Mean Platelet Vol. 9.5 fl (6.2-12.0); Platelet Count 205 K/mm3 (150-450); RBC Distribution Width CV 15.8 % (11.6-14.6); RBC Distribution Width SD 54.7 fl (35.1-43.9); Red Blood Count 2.57 M/mm3 (4.6-6.2); White Blood Count 5.9 K/mm3 (4.4-11.0)
[2019-09-26 08:00] VITALS: RESP 18
[2019-09-26] MEDS: Iron Polysaccharide Complex 150 MG CAPSULE PO (08:12)
[2019-09-26] MEDS: Ensure Surgery 237 ML LIQUID PO ×3 (08:12→16:37)
[2019-09-26] MEDS: Amiodarone 200 MG Tablet PO (08:12)
[2019-09-26] MEDS: Aspirin 81 MG TAB.CHEW PO ×2 (08:13→16:37)
[2019-09-26 08:25] VITALS: BP 125/55; PULSE 70; RESP 18; TEMP 36.3; O2SAT 97
--- NOTE | 2019-09-26 09:37 | PCM.PN.HOSP ---
Subjective: Patient seen and examined. He has no complaints this morning. Pain is well controlled, and he denies any fever, chills, nausea, vomiting or diarrhea or shortness of breath. Review of systems is otherwise negative. Labs and vitals reviewed. He has remained hemodynamically stable. hb today is 7.8. He is still having significant bloody output from his left hip drain. Vitals/I&O's: Vital Signs Temp Pulse Resp BP Pulse Ox 97.3 F L 70 18 125/55 H 97 09/26/19 08:25 09/26/19 08:25 09/26/19 08:25 09/26/19 08:25 09/26/19 08:25 Oxygen Flow Rate (L/min) 6 Oxygen Delivery Method Room Air Weight: 240 lb Body Mass Index (BMI) 30.8 Intake and Output for Last 24 Hours 09/24/19 09/25/19 09/26/19 23:59 23:59 23:59 Intake Total 2310 / 2510 1809 / 2009 300 / 300 Output Total 800 / 925 1380 / 1710 1410 / 1410 Balance 1510 / 1585 430 / 300 -1110 / -1110 General: Alert, Oriented x3, Cooperative, No apparent distress HEENT: Atraumatic, PERRLA, EOMI, Normocephalic Oral: Dry Mucosa Neck: Supple, No JVD, Negative Carotid Bruits Lungs: Clear to auscultation, Normal air movement, No rhonchi, No wheeze Cardiovascular: Regular rate, Regular Rhythm, Normal S1, Normal S2, No murmurs Abdomen: Bowel Sounds Present, Soft, Non Tender, Non-Distended, No Hepato-splenomegaly Extremities: No clubbing, No cyanosis, No edema, Capillary Refill Less than 3 Seconds Skin: No rashes, No breakdown Musculoskeletal: - - left hip drain in place, draining bloody fluid Lymphatic: No Cervical, Supraclavicular, or Inguinal Adenopathy Neurological: Cranial nerves II-XII grossly intact, Neuro grossly intact, Motor Exam 5/5 strength throughout Psych/Mental Status: Normal Affect, Appropriate, Alert and oriented to time, place, person, mood and affect Microbiology Past 72 Hours 09/23/19 12:17 Tissue - Hip Gram Stain - Final 09/23/19 12:17 Tissue - Hip Wound Culture - Preliminary No growth-Final to follow 09/23/19 12:17 Tissue - Hip Anaerobic Culture - Preliminary No growth in 48 hours. 09/23/19 12:14 Tissue - Hip Gram Stain - Final 09/23/19 12:14 Tissue - Hip Wound Culture - Preliminary No growth-Final to follow 09/23/19 12:14 Tissue - Hip Anaerobic Culture - Preliminary No growth in 48 hours. 09/23/19 12:12 Tissue - Hip Gram Stain - Final 09/23/19 12:12 Tissue - Hip Wound Culture - Preliminary No growth-Final to follow 09/23/19 12:12 Tissue - Hip Anaerobic Culture - Preliminary No growth in 48 hours. 09/23/19 12:06 Tissue - Hip Gram Stain - Final 09/23/19 12:06 Tissue - Hip Wound Culture - Preliminary No growth-Final to follow 09/23/19 12:06 Tissue - Hip Anaerobic Culture - Preliminary No growth in 48 hours. 09/23/19 12:04 Tissue - Hip Gram Stain - Final 09/23/19 12:04 Tissue - Hip Wound Culture - Preliminary No growth-Final to follow 09/23/19 12:04 Tissue - Hip Anaerobic Culture - Preliminary No growth in 48 hours. Laboratory Results 09/23/19 09:15: Crossmatch See Detail 09/25/19 15:36: Hgb 8.1 L, Hct 24.9 L 09/26/19 06:30: WBC 5.9, RBC 2.57 L, Hgb 7.8 L, Hct 24.4 L, MCV 94.9 H, MCH 30.4, MCHC 32.0, RDW Std Deviation 54.7 H, RDW Coeff of Morenita 15.8 H, Plt Count 205, MPV 9.5 Current Medications Acetaminophen (Tylenol) 1,000 mg PO Q8 [facility] Last Admin: 09/26/19 06:14 Dose: 1,000 mg Documented by: Amiodarone HCl (Cordarone) 200 mg PO DAILY@0800 [facility] Last Admin: 09/26/19 08:12 Dose: 200 mg Documented by: Aspirin (Aspirin, Baby) 81 mg PO BIDCM [facility] Last Admin: 09/26/19 08:13 Dose: 81 mg Documented by: Bisacodyl (Dulcolax) 10 mg PO DAILY PRN PRN Reason: Constipation Enteral Nutritional Formula (Ensure Surgery) 237 ml PO TIDCM [facility] Last Admin: 09/26/19 08:12 Dose: 237 ml Documented by: Famotidine (Pepcid) 20 mg PO DAILY [facility] Last Admin: 09/25/19 08:29 Dose: 20 mg Documented by: Fluconazole (Diflucan) 200 mg PO DAILY [facility] Last Admin: 09/25/19 08:29 Dose: 200 mg Documented by: Linezolid (Zyvox) 600 mg PO BID [facility] Last Admin: 09/25/19 21:54 Dose: 600 mg Documented by: Meloxicam (Mobic) 7.5 mg PO BID [facility] Last Admin: 09/25/19 21:55 Dose: 7.5 mg Documented by: Morphine Sulfate () 2 - 4 mg IV Q2H PRN PRN PRN Reason: Pain Score 4-10/10 Morphine Sulfate () 2 - 4 mg IV Q2H PRN PRN PRN Reason: Pain Score 4-10/10 Nystatin (Mycostatin Powder) 1 applic TOPICAL 0600,2200 [facility]; Protocol Last Admin: 09/26/19 06:14 Dose: 1 applicatio Documented by: Ondansetron HCl (Zofran) 4 mg IV Q8H PRN PRN PRN Reason: NAUSEA Oxycodone HCl (Oxyir) 5 - 10 mg PO Q4H PRN PRN PRN Reason: Pain Score 4-10/10 Pantoprazole Sodium (Protonix) 20 mg PO DAILY [facility] Last Admin: 09/25/19 08:29 Dose: 20 mg Documented by: [facility]accharide [facility] Last Admin: 09/26/19 08:12 Dose: 150 mg Documented by: Promethazine HCl (Phenergan) 12.5 mg IM Q6H PRN PRN; Protocol PRN Reason: NAUSEA/VOMITING Senna/Docusate Sodium (Senokot-S, Herminia-Colace) 2 tablet PO BID [facility] Last Admin: 09/25/19 21:53 Dose: Not Given Documented by: Sodium Chloride () 10 - 40 ml IV UD PRN PRN Reason: SALINE FLUSH Last Admin: 09/24/19 22:00 Dose: 10 ml Documented by: STROKE Vital Signs/Narrative: Vital Signs Temp Pulse Resp BP Pulse Ox 09/26/19 08:25 97.3 F L 70 18 125/55 H 97 09/26/19 08:00 18 Medical Necessity - Tobacco Use Smoking Status: Never smoker Tobacco Use: Non-smoker Assessment/Plan All Active Problems Debility (Resolved) Hip hematoma, left (Resolved) Hip dislocation, left (Resolved) Toe pain, left (Resolved) Toe pain, right (Resolved) Sternal fracture (Resolved) Multiple rib fractures (Resolved) Lumbar transverse process fracture (Resolved) Sacral fracture, closed (Resolved) Fracture of left inferior pubic ramus (Resolved) Fracture of ischial tuberosity (Resolved) Open fracture of right proximal tibia (Resolved) Open fracture of right distal tibia (Resolved) Open fracture of right humerus (Resolved) Right scapula fracture (Resolved) Closed fracture of right distal femur (Resolved) Left femoral shaft fracture (Resolved) Small bowel obstruction (Resolved) Pneumocytosis (Resolved) Metacarpal bone fracture (Resolved) Fracture, metacarpal shaft (Resolved) CMC arthritis, thumb, 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 Still having bloody drainage from left hip s/p transfusion of 2 units of PRBCs aim is to transfuse to keep Hb>7 2. Revision of left total hip replacement Today's postop day 2. PT OT on board. fall precautions has antibiotic spacer removed during surgery 3. PAroxysmal afib: currently rate controlled. ON PO amiodarone. 4. 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
[2019-09-26] MEDS: Senna/Docusate Sodium 1 Tablet 2 TABLET PO (10:08)
[2019-09-26] MEDS: Meloxicam 7.5 MG Tablet PO ×2 (10:08→21:22)
[2019-09-26] MEDS: Famotidine 20 MG Tablet PO (10:08)
[2019-09-26] MEDS: Linezolid 600 MG Tablet PO ×2 (10:08→21:22)
[2019-09-26] MEDS: Pantoprazole Sodium 20 MG Tablet PO (10:08)
[2019-09-26] MEDS: Fluconazole 100 MG Tablet 200 MG PO (10:09)
--- NOTE | 2019-09-26 11:23 | PN.ORTHO_ITS ---
Subjective: Patient is doing well. He still is having difficulty with balance. Has been able to bear weight but is not been able to ambulate much with physical therapy. The drain output was significant over the last 24 hours. Going to maintain the drain at this time. He reports that he was having some pain and pressure in the thigh yesterday which significantly improved over the last 24 hours. He received 2 units of packed red blood cells and responded appropriately. Hemoglobin is been fairly stable since that time with this morning's check. He has no chest pain or shortness of breath. No calf pain. We are still awaiting pre-CERT to the TCU. Objective: Postoperative x-rays were reviewed showing stable well aligned left proximal third femoral hip replacement. - Physical Exam Vitals/I&O's: Vital Signs Temp Pulse Resp BP Pulse Ox 97.3 F L 70 18 125/55 H 97 09/26/19 08:25 09/26/19 08:25 09/26/19 08:25 09/26/19 08:25 09/26/19 08:25 Oxygen Flow Rate (L/min) 6 Oxygen Delivery Method Room Air Weight: 240 lb Body Mass Index (BMI) 30.8 Intake and Output for Last 24 Hours 09/24/19 09/25/19 09/26/19 23:59 23:59 23:59 Intake Total 2310 / 2510 1809 300 / 300 Output Total 800 / 925 1380 / 1710 1410 / 1410 Balance 1510 / 1585 430 / 300 -1110 / -1110 General: Alert, Oriented x3, Cooperative Extremities: - - Left lower extremity: Dressing is clean dry and intact Se nsations intact to light touch saphenous, sural, superficial peroneal, deep peroneal, and tibial distributions Motors intact EHL, DF, PF calves are soft and supple Microbiology Past 72 Hours 09/23/19 12:17 Tissue - Hip Gram Stain - Final 09/23/19 12:17 Tissue - Hip Wound Culture - Preliminary No growth-Final to follow 09/23/19 12:17 Tissue - Hip Anaerobic Culture - Preliminary No growth in 48 hours. 09/23/19 12:14 Tissue - Hip Gram Stain - Final 09/23/19 12:14 Tissue - Hip Wound Culture - Preliminary No growth-Final to follow 09/23/19 12:14 Tissue - Hip Anaerobic Culture - Preliminary No growth in 48 hours. 09/23/19 12:12 Tissue - Hip Gram Stain - Final 09/23/19 12:12 Tissue - Hip Wound Culture - Preliminary No growth-Final to follow 09/23/19 12:12 Tissue - Hip Anaerobic Culture - Preliminary No growth in 48 hours. 09/23/19 12:06 Tissue - Hip Gram Stain - Final 09/23/19 12:06 Tissue - Hip Wound Culture - Preliminary No growth-Final to follow 09/23/19 12:06 Tissue - Hip Anaerobic Culture - Preliminary No growth in 48 hours. 09/23/19 12:04 Tissue - Hip Gram Stain - Final 09/23/19 12:04 Tissue - Hip Wound Culture - Preliminary No growth-Final to follow 09/23/19 12:04 Tissue - Hip Anaerobic Culture - Preliminary No growth in 48 hours. Laboratory Results 09/23/19 09:15: Crossmatch See Detail 09/25/19 15:36: Hgb 8.1 L, Hct 24.9 L 09/26/19 06:30: WBC 5.9, RBC 2.57 L, Hgb 7.8 L, Hct 24.4 L, MCV 94.9 H, MCH 30.4, MCHC 32.0, RDW Std Deviation 54.7 H, RDW Coeff of Morenita 15.8 H, Plt Count 205, MPV 9.5 Current Medications Acetaminophen (Tylenol) 1,000 mg PO Q8 [facility] Last Admin: 09/26/19 06:14 Dose: 1,000 mg Documented by: Amiodarone HCl (Cordarone) 200 mg PO DAILY@0800 [facility] Last Admin: 09/26/19 08:12 Dose: 200 mg Documented by: Aspirin (Aspirin, Baby) 81 mg PO BIDCM [facility] Last Admin: 09/26/19 08:13 Dose: 81 mg Documented by: Bisacodyl (Dulcolax) 10 mg PO DAILY PRN PRN Reason: Constipation Enteral Nutritional Formula (Ensure Surgery) 237 ml PO TIDCM [facility] Last Admin: 09/26/19 08:12 Dose: 237 ml Documented by: Famotidine (Pepcid) 20 mg PO DAILY [facility] Last Admin: 09/26/19 10:08 Dose: 20 mg Documented by: Fluconazole (Diflucan) 200 mg PO DAILY [facility] Last Admin: 03/14/20 10:09 Dose: 200 mg Documented by: Linezolid (Zyvox) 600 mg PO BID [facility] Last Admin: 09/26/19 10:08 Dose: 600 mg Documented by: Meloxicam (Mobic) 7.5 mg PO BID [facility] Last Admin: 09/26/19 10:08 Dose: 7.5 mg Documented by: Morphine Sulfate () 2 - 4 mg IV Q2H PRN PRN PRN Reason: Pain Score 4-10/10 Morphine Sulfate () 2 - 4 mg IV Q2H PRN PRN PRN Reason: Pain Score 4-10/10 Nystatin (Mycostatin Powder) 1 applic TOPICAL 0600,2200 [facility]; Protocol Last Admin: 09/26/19 06:14 Dose: 1 applicatio Documented by: Ondansetron HCl (Zofran) 4 mg IV Q8H PRN PRN PRN Reason: NAUSEA Oxycodone HCl (Oxyir) 5 - 10 mg PO Q4H PRN PRN PRN Reason: Pain Score 4-10/10 Pantoprazole Sodium (Protonix) 20 mg PO DAILY [facility] Last Admin: 09/26/19 10:08 Dose: 20 mg Documented by: Polysaccharide Iron Complex (Ferrex 150) [facility] Last Admin: 09/26/19 08:12 Dose: 150 mg Documented by: Promethazine HCl (Phenergan) 12.5 mg IM Q6H PRN PRN; Protocol PRN Reason: NAUSEA/VOMITING Senna/Docusate Sodium (Senokot-S, Herminia-Colace) 2 tablet PO BID [facility] Last Admin: 09/26/19 10:08 Dose: 2 tablet Documented by: Sodium Chloride () 10 - 40 ml IV UD PRN PRN Reason: SALINE FLUSH Last Admin: 09/24/19 22:00 Dose: 10 ml Documented by: Medical Necessity - Tobacco Use Smoking Status: Never smoker Tobacco Use: Non-smoker Assessment/Plan All Active Problems Debility (Resolved) Hip hematoma, left (Resolved) Hip dislocation, left (Resolved) Toe pain, left (Resolved) Toe pain, right (Resolved) Sternal fracture (Resolved) Multiple rib fractures (Resolved) Lumbar transverse process fracture (Resolved) Sacral fracture, closed (Resolved) Fracture of left inferior pubic ramus (Resolved) Fracture of ischial tuberosity (Resolved) Open fracture of right proximal tibia (Resolved) Open fracture of right distal tibia (Resolved) Open fracture of right humerus (Resolved) Right scapula fracture (Resolved) Closed fracture of right distal femur (Resolved) Left femoral shaft fracture (Resolved) Small bowel obstruction (Resolved) Pneumocytosis (Resolved) Metacarpal bone fracture (Resolved) Fracture, metacarpal shaft (Resolved) CMC arthritis, thumb, 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 S/P revision left total hip replacement with conversion from antibiotic spacer to a total replacement POD #3 2. Continue Pain Medications: Tylenol and OxyIR 3. DVT Prophylaxis: Currently on aspirin 81 mg twice daily but if patient does not mobilize appropriately we will increase his DVT prophylaxis to Lovenox. Patient's mobilization has been limited however he continues to have significant drainage output. He had a large area of space during surgery. There is still concerns for developing a large hematoma. We will maintain the drain and aspirin for DVT prophylaxis. 4. PT/OT: Weightbearing as tolerated with walker. Continue with posterior hip dislocation precautions strictly for the next 3 months 5. Chronic iron deficiency anemia with postoperative blood loss: Today's Hb: 7.8, he was 8.1 after both transfusions yesterday, heart rate and blood pressure were stable. At this time we will transfusion as appropriate. I did explain to the patient that if he continues to require transfusions we may need to pull the drain and allow for tamponade of the area. Need to be cognizant of developing significant hematoma. 6. Encouraged Incentive Spirometry 7. Continue postoperative medical management per medicine: 8. Continue treatment per infectious disease: Patient is currently taking linezolid and fluconazole. Will cover with these antibiotics while following surgical cultures. Cultures currently without any growth or organisms seen 9. Hemovac drain: 530 over the last 24 hours, will maintain drain until decreases or will pull if necessary if continues to have excessive blood loss from this area. Her drainage is sanguinous. 10. Disposition: Plan is to discharge to TCU once patient is obtained appropriate precertification. [facility] Office:
[2019-09-26 16:40] VITALS: BP 117/62; PULSE 74; RESP 18; TEMP 37; O2SAT 98
[2019-09-26 19:52] VITALS: BP 132/92; PULSE 77; RESP 17; TEMP 37.3; O2SAT 100
[2019-09-27 02:07] VITALS: BP 126/60; PULSE 72; RESP 17; TEMP 36.9; O2SAT 100
[2019-09-27 06:18] LABS: Absolute Lymphocyte Count 1.31 X10^3/uL (0.83-4.51); Absolute Neutrophil Count 2.8 X10^3/uL (2.0-7.7); Basophil# 0.03 X10^3/uL; Basophil% 0.6 % (0-1); Eosinophil# 0.31 X10^3/uL; Eosinophils% 6.1 % (0-5); Hematocrit 23.5 % (40-54); Hemoglobin 7.4 g/dL (13.0-16.5); Lymphocyte # 1.31 X10^3/ul (4.0); Lymphocyte % 25.6 % (19-41); Mean Corp Hgb Conc 31.5 g/dL (32-36); Mean Corpuscular Hgb 30.3 pg (27.0-32.0); Mean Corpuscular Volume 96.3 fL (80-94); Mean Platelet Vol. 9.1 fl (6.2-12.0); Monocyte% 11.7 % (0-10); NRBC Flagged by Analyzer 0 % (0-5); Neutrophil # 2.81 X10^3/uL (2.7-7.7); Platelet Count 199 K/mm3 (150-450); RBC Distribution Width CV 15.6 % (11.6-14.6); RBC Distribution Width SD 54.7 fl (35.1-43.9); Red Blood Count 2.44 M/mm3 (4.6-6.2); White Blood Count 5.1 K/mm3 (4.4-11.0)
[2019-09-27 06:43] LABS: Anion Gap 6 (5-15); BUN 26 mg/dL (7-18); BUN/Creat Ratio 27.9 RATIO (10-20); Calcium,Total 8.4 mg/dL (8.5-10.1); Chloride 108 mmol/L (98-107); Creatinine, Serum 0.93 mg/dL (0.70-1.30); EST Glomerular Filtration Rate 82 mL/min (>60); Est Glom Filt Rate - Afr Amer 99 mL/min (>60); Estimated Creatinine Clearance 69.97 ml/min; Glucose 94 mg/dL (74-106); Sodium Level 140 mmol/L (136-145)
[2019-09-27] MEDS: Acetaminophen 500 MG Tablet 1000 MG PO ×3 (06:44→22:01)
[2019-09-27] MEDS: Nystatin Powder 15gm Bottle 1 APPLIC TOPICAL ×2 (06:44→22:02)
[2019-09-27 08:07] VITALS: BP 130/62; PULSE 71; RESP 18; TEMP 37.2; O2SAT 100
[2019-09-27] MEDS: Famotidine 20 MG Tablet PO (09:00)
[2019-09-27] MEDS: Fluconazole 100 MG Tablet 200 MG PO (09:00)
[2019-09-27] MEDS: Aspirin 81 MG TAB.CHEW PO ×2 (09:00→18:27)
[2019-09-27] MEDS: Meloxicam 7.5 MG Tablet PO ×2 (09:00→22:01)
[2019-09-27] MEDS: Iron Polysaccharide Complex 150 MG CAPSULE PO (09:01)
[2019-09-27] MEDS: Senna/Docusate Sodium 1 Tablet 2 TABLET PO (09:01)
[2019-09-27] MEDS: Pantoprazole Sodium 20 MG Tablet PO (09:01)
[2019-09-27] MEDS: Linezolid 600 MG Tablet PO ×2 (09:01→22:01)
[2019-09-27] MEDS: Ensure Surgery 237 ML LIQUID PO ×3 (09:02→18:27)
[2019-09-27] MEDS: Amiodarone 200 MG Tablet PO (09:02)
--- NOTE | 2019-09-27 11:59 | PCM.PN.HOSP ---
Subjective: Patient seen and examined. He had an uneventful night. He continues to have increased bloody drainage from his drain. He had about 700 mils of bloody output from his hip over the last 24 hours. Hemoglobin is dropped to 7.4. Vitals/I&O's: Vital Signs Temp Pulse Resp BP Pulse Ox 98.9 F 71 18 130/62 H 100 09/27/19 08:07 09/27/19 08:07 09/27/19 08:07 09/27/19 08:07 09/27/19 08:07 Oxygen Flow Rate (L/min) 6 Oxygen Delivery Method Room Air Weight: 240 lb Body Mass Index (BMI) 30.8 Intake and Output for Last 24 Hours 09/25/19 09/26/19 09/27/19 23:59 23:59 23:59 Intake Total 1809 / 2009 2350 / 2350 350 / 350 Output Total 1380 / 1710 3030 / 3030 150 / 150 Balance 430 / 300 -680 / -680 200 / 200 General: Alert, Oriented x3, Cooperative, No apparent distress HEENT: Atraumatic, PERRLA, EOMI, Normocephalic Oral: Dry Mucosa Neck: Supple, No JVD, Negative Carotid Bruits Lungs: Clear to auscultation, Normal air movement, No rhonchi, No wheeze Cardiovascular: Regular rate, Regular Rhythm, Normal S1, Normal S2, No murmurs Abdomen: Bowel Sounds Present, Soft, Non Tender, Non-Distended, No Hepato-splenomegaly Extremities: No clubbing, No cyanosis, No edema, Capillary Refill Less than 3 Seconds Skin: No rashes, No breakdown Musculoskeletal: - - left hip drain in place, draining bloody fluid Lymphatic: No Cervical, Supraclavicular, or Inguinal Adenopathy Neurological: Cranial nerves II-XII grossly intact, Neuro grossly intact, Motor Exam 5/5 strength throughout Psych/Mental Status: Normal Affect, Appropriate, Alert and oriented to time, place, person, mood and affect Microbiology Past 72 Hours 09/23/19 12:04 Tissue - Hip Gram Stain - Final 09/23/19 12:04 Tissue - Hip Wound Culture - Preliminary No growth-Final to follow 09/23/19 12:04 Tissue - Hip Anaerobic Culture - Preliminary No growth in 48 hours. 09/23/19 12:17 Tissue - Hip Gram Stain - Final 09/23/19 12:17 Tissue - Hip Wound Culture - Preliminary No growth-Final to follow 09/23/19 12:17 Tissue - Hip Anaerobic Culture - Preliminary No growth in 48 hours. 09/23/19 12:14 Tissue - Hip Gram Stain - Final 09/23/19 12:14 Tissue - Hip Wound Culture - Preliminary No growth-Final to follow 09/23/19 12:14 Tissue - Hip Anaerobic Culture - Preliminary No growth in 48 hours. 09/23/19 12:12 Tissue - Hip Gram Stain - Final 09/23/19 12:12 Tissue - Hip Wound Culture - Preliminary No growth-Final to follow 09/23/19 12:12 Tissue - Hip Anaerobic Culture - Preliminary No growth in 48 hours. 09/23/19 12:06 Tissue - Hip Gram Stain - Final 09/23/19 12:06 Tissue - Hip Wound Culture - Preliminary No growth-Final to follow 09/23/19 12:06 Tissue - Hip Anaerobic Culture - Preliminary No growth in 48 hours. Laboratory Results 09/27/19 05:57: WBC 5.1, RBC 2.44 L, Hgb 7.4 L, Hct 23.5 L, MCV 96.3 H, MCH 30.3, MCHC 31.5 L, RDW Std Deviation 54.7 H, RDW Coeff of Morenita 15.6 H, Plt Count 199, MPV 9.1, Immature Gran % (Auto) 1.000 H, Neut % (Auto) 55.0, Lymph % (Auto) 25.6, [place] % (Auto) 11.7 H, Eos % (Auto) 6.1 H, Baso % (Auto) 0.6, Absolute Neuts (auto) 2.8, Absolute Lymphs (auto) 1.31, Nucleated RBC % 0 09/27/19 05:57: Sodium 140, Potassium 4.0, Chloride 108 H, Carbon Dioxide 26.0, Anion Gap 6, BUN 26 H, Creatinine 0.93, Estim Creat Clear Calc 69.97, Est GFR (MDRD) Af Amer 99, Est GFR (MDRD) Non-Af 82, BUN/Creatinine Ratio 27.9 H, Glucose 94, Calcium 8.4 L 09/27/19 08:58: Blood Type O POSITIVE, Antibody Screen NEGATIVE, Crossmatch See Detail Current Medications Acetaminophen (Tylenol) 1,000 mg PO Q8 [facility] Last Admin: 09/27/19 06:44 Dose: 1,000 mg Documented by: Amiodarone HCl (Cordarone) 200 mg PO DAILY@0800 [facility] Last Admin: 09/27/19 09:02 Dose: 200 mg Documented by: Aspir[facility] ([facility], Baby) [facility] Last Admin: 09/27/19 09:00 Dose: 81 mg Documented by: Bisacodyl (Dulcolax) 10 mg PO DAILY PRN PRN Reason: Constipation Enteral Nutritional Formula (Ensure Surgery) 237 ml PO TIDCM [facility] Last Admin: 09/27/19 09:02 Dose: 237 ml Documented by: Famotidine (Pepcid) 20 mg PO DAILY [facility] Last Admin: 09/27/19 09:00 Dose: 20 mg Documented by: Fluconazole (Diflucan) 200 mg PO DAILY [facility] Last Admin: 09/27/19 09:00 Dose: 200 mg Documented by: Linezolid (Zyvox) 600 mg PO BID [facility] Last Admin: 09/27/19 09:01 Dose: 600 mg Documented by: Meloxicam (Mobic) 7.5 mg PO BID [facility] Last Admin: 09/27/19 09:00 Dose: 7.5 mg Documented by: Morphine Sulfate () 2 - 4 mg IV Q2H PRN PRN PRN Reason: Pain Score 4-10/10 Morphine Sulfate () 2 - 4 mg IV Q2H PRN PRN PRN Reason: Pain Score 4-10/10 Nystatin (Mycostatin Powder) 1 applic TOPICAL 0600,2200 [facility]; Protocol Last Admin: 09/27/19 06:44 Dose: 1 applicatio Documented by: Ondansetron HCl (Zofran) 4 mg IV Q8H PRN PRN PRN Reason: NAUSEA Oxycodone HCl (Oxyir) 5 - 10 mg PO Q4H PRN PRN PRN Reason: Pain Score 4-10/10 Pantoprazole Sodium (Protonix) 20 mg PO DAILY [facility] Last Admin: 09/27/19 09:01 Dose: 20 mg Documented by: Polysaccharide Iron Complex (Ferrex 150) [facility] Last Admin: 09/27/19 09:01 Dose: 150 mg Documented by: Promethazine HCl (Phenergan) 12.5 mg IM Q6H PRN PRN; Protocol PRN Reason: NAUSEA/VOMITING Senna/Docusate Sodium (Senokot-S, Herminia-Colace) 2 tablet PO BID [facility] Last Admin: 09/27/19 09:01 Dose: 2 tablet Documented by: Sodium Chloride () 10 - 40 ml IV UD PRN PRN Reason: SALINE FLUSH Last Admin: 09/24/19 22:00 Dose: 10 ml Documented by: STROKE Vital Signs/Narrative: Vital Signs Temp Pulse Resp BP Pulse Ox 09/27/19 08:07 98.9 F 71 18 130/62 H 100 Medical Necessity - Tobacco Use Smoking Status: Never smoker Tobacco Use: Non-smoker Assessment/Plan All Active Problems Debility (Resolved) Hip hematoma, left (Resolved) Hip dislocation, left (Resolved) Toe pain, left (Resolved) Toe pain, right (Resolved) Sternal fracture (Resolved) Multiple rib fractures (Resolved) Lumbar transverse process fracture (Resolved) Sacral fracture, closed (Resolved) Fracture of left inferior pubic ramus (Resolved) Fracture of ischial tuberosity (Resolved) Open fracture of right proximal tibia (Resolved) Open fracture of right distal tibia (Resolved) Open fracture of right humerus (Resolved) Right scapula fracture (Resolved) Closed fracture of right distal femur (Resolved) Left femoral shaft fracture (Resolved) Small bowel obstruction (Resolved) Pneumocytosis (Resolved) Metacarpal bone fracture (Resolved) Fracture, metacarpal shaft (Resolved) CMC arthritis, thumb, 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 Still having bloody drainage from left hip- ~ 700cc over the last 24 hours. s/p transfusion of 2 units of PRBCs aim is to transfuse to keep Hb>7 will transfuse one unit of PRBC toady due to ongoing drainage from surgical site, and Hb dropping to 7.4. Per orthopedic recommendations, if patient continues to require transfusions we may need to pull the drain allow for tamponade of the area and need to be cognizant of developing significant hematoma 2. Revision of left total hip replacement Today's postop day 3. Had removal of antibiotic spacer during surgery PT OT on board. fall precautions Continue incentive spirometry. 3. Paroxysmal afib: currently rate controlled. ON PO amiodarone. 4. 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 Per orthopedics, patient's mobilization continues to be limited as he is unable to mobilize appropriately DVT prophylaxis will be switched to Lovenox. Will defer to orthopedics. Disposition: awaiting precert to Rehab unit Inpatient E&M: [id number] [facility] Hosp L2
--- NOTE | 2019-09-27 12:34 | PCM.PN.ORT ---
Subjective: Patient is doing well. He has been comfortable. No acute events overnight. He notes that he was able to get up and walk shortly down the hallway with a rest he was able to walk back to the bed with walker. He is able to transfer from his wheelchair to the bed today to have the drain pulled. No chest pain or shortness of breath. No calf pain. - Physical Exam Vitals/I&O's: Vital Signs Temp Pulse Resp BP Pulse Ox 98.9 F 71 18 130/62 H 100 09/27/19 08:07 09/27/19 08:07 09/27/19 08:07 09/27/19 08:07 09/27/19 08:07 Oxygen Flow Rate (L/min) 6 Oxygen Delivery Method Room Air Weight: 240 lb Body Mass Index (BMI) 30.8 Intake and Output for Last 24 Hours 09/25/19 09/26/19 09/27/19 23:59 23:59 23:59 Intake Total 1809 / 2009 2350 / 2350 350 / 350 Output Total 1380 / 1710 3030 / 3030 150 / 150 Balance 430 / 300 -680 / -680 200 / 200 General: Alert, Oriented x3, Cooperative Extremities: - - Left lower extremity: Dressing is clean dry and intact. Drain has serosanguineous fluid however minimal drainage likely clotted off. The drain was pulled today. Upon pulling the drain patient did have serosanguineous drainage while in the dependent position. Sensations intact to light touch saphenous, sural, superficial peroneal, deep peroneal, and tibial distributions Motors intact EHL, DF, PF calves are soft and supple Microbiology Past 72 Hours 09/23/19 12:04 Tissue - Hip Gram Stain - Final 09/23/19 12:04 Tissue - Hip Wound Culture - Preliminary No growth-Final to follow 09/23/19 12:04 Tissue - Hip Anaerobic Culture - Preliminary No growth in 48 hours. 09/23/19 12:17 Tissue - Hip Gram Stain - Final 09/23/19 12:17 Tissue - Hip Wound Culture - Preliminary No growth-Final to follow 09/23/19 12:17 Tissue - Hip Anaerobic Culture - Preliminary No growth in 48 hours. 09/23/19 12:14 Tissue - Hip Gram Stain - Final 09/23/19 12:14 Tissue - Hip Wound Culture - Preliminary No growth-Final to follow 09/23/19 12:14 Tissue - Hip Anaerobic Culture - Preliminary No growth in 48 hours. 09/23/19 12:12 Tissue - Hip Gram Stain - Final 09/23/19 12:12 Tissue - Hip Wound Culture - Preliminary No growth-Final to follow 09/23/19 12:12 Tissue - Hip Anaerobic Culture - Preliminary No growth in 48 hours. 09/23/19 12:06 Tissue - Hip Gram Stain - Final 09/23/19 12:06 Tissue - Hip Wound Culture - Preliminary No growth-Final to follow 09/23/19 12:06 Tissue - Hip Anaerobic Culture - Preliminary No growth in 48 hours. Laboratory Results 09/27/19 05:57: WBC 5.1, RBC 2.44 L, Hgb 7.4 L, Hct 23.5 L, MCV 96.3 H, MCH 30.3, MCHC 31.5 L, RDW Std Deviation 54.7 H, RDW Coeff of Morenita 15.6 H, Plt Count 199, MPV 9.1, Immature Gran % (Auto) 1.000 H, Neut % (Auto) 55.0, Lymph % (Auto) 25.6, [place] % (Auto) 11.7 H, Eos % (Auto) 6.1 H, Baso % (Auto) 0.6, Absolute Neuts (auto) 2.8, Absolute Lymphs (auto) 1.31, Nucleated RBC % 0 09/27/19 05:57: Sodium 140, Potassium 4.0, Chloride 108 H, Carbon Dioxide 26.0, Anion Gap 6, BUN 26 H, Creatinine 0.93, Estim Creat Clear Calc 69.97, Est GFR (MDRD) Af Amer 99, Est GFR (MDRD) Non-Af 82, BUN/Creatinine Ratio 27.9 H, Glucose 94, Calcium 8.4 L 09/27/19 08:58: Blood Type O POSITIVE, Antibody Screen NEGATIVE, Crossmatch See Detail Current Medications Acetaminophen (Tylenol) 1,000 mg PO Q8 [facility] Last Admin: 09/27/19 06:44 Dose: 1,000 mg Documented by: Amiodarone HCl (Cordarone) 200 mg PO DAILY@0800 [facility] Last Admin: 09/27/19 09:02 Dose: 200 mg Documented by: [facility], [facility]) [facility] Last Admin: 09/27/19 09:00 Dose: 81 mg Documented by: Bisacodyl (Dulcolax) 10 mg PO DAILY PRN PRN Reason: Constipation Enteral Nutritional Formula (Ensure Surgery) 237 ml PO TIDCM [facility] Last Admin: 09/27/19 09:02 Dose: 237 ml Documented by: Famotidine (Pepcid) 20 mg PO DAILY [facility] Last Admin: 09/27/19 09:00 Dose: 20 mg Documented by: Fluconazole (Diflucan) 200 mg PO DAILY [facility] Last Admin: 09/27/19 09:00 Dose: 200 mg Documented by: Linezolid (Zyvox) 600 mg PO BID [facility] Last Admin: 09/27/19 09:01 Dose: 600 mg Documented by: Meloxicam (Mobic) 7.5 mg PO BID [facility] Last Admin: 09/27/19 09:00 Dose: 7.5 mg Documented by: Morphine Sulfate () 2 - 4 mg IV Q2H PRN PRN PRN Reason: Pain Score 4-10/10 Morphine Sulfate () 2 - 4 mg IV Q2H PRN PRN PRN Reason: Pain Score 4-10/10 Nystatin (Mycostatin Powder) 1 applic TOPICAL 0600,2200 [facility]; Protocol Last Admin: 09/27/19 06:44 Dose: 1 applicatio Documented by: Ondansetron HCl (Zofran) 4 mg IV Q8H PRN PRN PRN Reason: NAUSEA Oxycodone HCl (Oxyir) 5 - 10 mg PO Q4H PRN PRN PRN Reason: Pain Score 4-10/10 Pantoprazole Sodium (Protonix) 20 mg PO DAILY [facility] Last Admin: 09/27/19 09:01 Dose: 20 mg Documented by: Polysaccharide Iron Complex (Ferrex 150) [facility] Last Admin: 09/27/19 09:01 Dose: 150 mg Documented by: Promethazine HCl (Phenergan) 12.5 mg IM Q6H PRN PRN; Protocol PRN Reason: NAUSEA/VOMITING Senna/Docusate Sodium (Senokot-S, Herminia-Colace) 2 tablet PO BID [facility] Last Admin: 09/27/19 09:01 Dose: 2 tablet Documented by: Sodium Chloride () 10 - 40 ml IV UD PRN PRN Reason: SALINE FLUSH Last Admin: 09/24/19 22:00 Dose: 10 ml Documented by: Medical Necessity - Tobacco Use Smoking Status: Never smoker Tobacco Use: Non-smoker Assessment/Plan All Active Problems Debility (Resolved) Hip hematoma, left (Resolved) Hip dislocation, left (Resolved) Toe pain, left (Resolved) Toe pain, right (Resolved) Sternal fracture (Resolved) Multiple rib fractures (Resolved) Lumbar transverse process fracture (Resolved) Sacral fracture, closed (Resolved) Fracture of left inferior pubic ramus (Resolved) Fracture of ischial tuberosity (Resolved) Open fracture of right proximal tibia (Resolved) Open fracture of right distal tibia (Resolved) Open fracture of right humerus (Resolved) Right scapula fracture (Resolved) Closed fracture of right distal femur (Resolved) Left femoral shaft fracture (Resolved) Small bowel obstruction (Resolved) Pneumocytosis (Resolved) Metacarpal bone fracture (Resolved) Fracture, metacarpal shaft (Resolved) CMC arthritis, thumb, 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 Continue Pain Medications: Tylenol and OxyIR 3. DVT Prophylaxis: Currently on aspirin 81 mg twice daily but if patient does not mobilize appropriately we will increase his DVT prophylaxis to Lovenox. Patient's mobilization has been limited however he had minimal output in the drain however this is likely due to clotting off of the drain. He had a large area of space during surgery. There is still concerns for developing a large hematoma. We will maintain the drain and aspirin for DVT prophylaxis. 4. PT/OT: Weightbearing as tolerated with walker. Continue with posterior hip dislocation precautions strictly for the next 3 months 5. Chronic iron deficiency anemia with postoperative blood loss: Today's Hb: 7.4, he was 7.8 the patient's medical comorbidities it was felt he would benefit from another unit transfused today per the medicine service. I agree with this assessment 6. Encouraged Incentive Spirometry 7. Continue postoperative medical management per medicine: 8. Continue treatment per infectious disease: Patient is currently taking linezolid and fluconazole. Will cover with these antibiotics while following surgical cultures. Cultures currently without any growth or organisms seen 9. Hemovac drain: No drainage was recorded. There was minimal drainage in the Hemovac today. I believe it was clotted off. We did remove it. 10. Disposition: Plan is to discharge to TCU once patient is obtained appropriate precertification. YEHUDA [facility] Office:
[2019-09-27 13:25] VITALS: BP 146/76; PULSE 72; RESP 18; TEMP 36.1; O2SAT 100
[2019-09-27 14:28] VITALS: BP 125/60; PULSE 79; RESP 18; TEMP 36.8; O2SAT 100
[2019-09-27 15:32] VITALS: BP 143/71; PULSE 73; RESP 18; TEMP 37; O2SAT 100
[2019-09-27 19:59] VITALS: BP 133/69; PULSE 73; RESP 16; TEMP 36.6; O2SAT 100
[2019-09-28 02:19] VITALS: BP 129/69; PULSE 72; RESP 16; TEMP 36.9; O2SAT 100
[2019-09-28 05:36] LABS: Absolute Lymphocyte Count 1.18 X10^3/uL (0.83-4.51); Absolute Neutrophil Count 2.8 X10^3/uL (2.0-7.7); Basophil# 0.02 X10^3/uL; Basophil% 0.4 % (0-1); Eosinophil# 0.38 X10^3/uL; Eosinophils% 7.6 % (0-5); Hematocrit 26.5 % (40-54); Hemoglobin 8.4 g/dL (13.0-16.5); Lymphocyte # 1.18 X10^3/ul (4.0); Lymphocyte % 23.6 % (19-41); Mean Corp Hgb Conc 31.7 g/dL (32-36); Mean Corpuscular Hgb 30.1 pg (27.0-32.0); Monocyte# 0.57 X10^3/uL; Monocyte% 11.4 % (0-10); NRBC Flagged by Analyzer 0 % (0-5); Neutrophil # 2.81 X10^3/uL (2.7-7.7); Neutrophil % 56.2 % (47-70); Platelet Count 215 K/mm3 (150-450); RBC Distribution Width CV 15.6 % (11.6-14.6); Red Blood Count 2.79 M/mm3 (4.6-6.2)
[2019-09-28 05:56] LABS: Anion Gap 6 (5-15); BUN 26 mg/dL (7-18); BUN/Creat Ratio 29.3 RATIO (10-20); Calcium,Total 8.3 mg/dL (8.5-10.1); Chloride 109 mmol/L (98-107); Creatinine, Serum 0.89 mg/dL (0.70-1.30); EST Glomerular Filtration Rate 87 mL/min (>60); Est Glom Filt Rate - Afr Amer 105 mL/min (>60); Estimated Creatinine Clearance 73.12 ml/min; Glucose 97 mg/dL (74-106); Potassium 4.1 mmol/L (3.5-5.1); Sodium Level 141 mmol/L (136-145)
[2019-09-28] MEDS: Acetaminophen 500 MG Tablet 1000 MG PO ×2 (06:25→13:28)
[2019-09-28] MEDS: Nystatin Powder 15gm Bottle 1 APPLIC TOPICAL (06:25)
--- NOTE | 2019-09-28 06:34 | PCM.PN.ORT ---
Subjective: The patient was sitting in bed upon examination. Patient denies any chest pain, shortness of breath, dizziness, lightheadedness, nausea or vomiting, or calf pain. Pain is controlled on medications. No adverse overnight events. Overall patient has been doing well. The pain is been controlled. Patient has been improving with physical therapy and has been able to walk with rest. Patient has continued antibiotics per infectious disease. The drain was pulled yesterday. His dressing is without any breakthrough drainage. Plan is for patient to go to the TCU once pre-CERT has been obtained. Objective: Vital signs stable and afebrile. Patient is able to plantarflex and dorsiflex actively. Sensation is intact to light touch to saphenous, sural, superficial and deep peroneal, and tibial distribution. Dressing is clean dry and intact and without any breakthrough drainage. Thigh is soft and supple. There is pitting edema to the lower extremity Negative Homans bilaterally, negative signs and symptoms of DVT. - Physical Exam Vitals/I&O's: Vital Signs Temp Pulse Resp BP Pulse Ox 98.4 F 72 16 129/69 H 100 09/28/19 02:19 09/28/19 02:19 09/28/19 02:19 09/28/19 02:19 09/28/19 02:19 Oxygen Flow Rate (L/min) 6 Oxygen Delivery Method Room Air Weight: 108.862 kg Body Mass Index (BMI) 30.8 Intake and Output for Last 24 Hours 09/26/19 09/27/19 09/28/19 23:59 23:59 23:59 Intake Total 2350 / 2350 2900 / 2900 650 / 650 Output Total 3030 / 3030 1000 / 1000 600 / 600 Balance -680 / -680 1900 / 1900 50 / 50 General: Alert, Oriented x3, Cooperative, No apparent distress Microbiology Past 72 Hours 09/23/19 12:04 Tissue - Hip Gram Stain - Final 09/23/19 12:04 Tissue - Hip Wound Culture - Preliminary No growth-Final to follow 09/23/19 12:04 Tissue - Hip Anaerobic Culture - Preliminary No growth in 48 hours. 09/23/19 12:17 Tissue - Hip Gram Stain - Final 09/23/19 12:17 Tissue - Hip Wound Culture - Preliminary No growth-Final to follow 09/23/19 12:17 Tissue - Hip Anaerobic Culture - Preliminary No growth in 48 hours. 09/23/19 12:14 Tissue - Hip Gram Stain - Final 09/23/19 12:14 Tissue - Hip Wound Culture - Preliminary No growth-Final to follow 09/23/19 12:14 Tissue - Hip Anaerobic Culture - Preliminary No growth in 48 hours. 09/23/19 12:12 Tissue - Hip Gram Stain - Final 09/23/19 12:12 Tissue - Hip Wound Culture - Preliminary No growth-Final to follow 09/23/19 12:12 Tissue - Hip Anaerobic Culture - Preliminary No growth in 48 hours. 09/23/19 12:06 Tissue - Hip Gram Stain - Final 09/23/19 12:06 Tissue - Hip Wound Culture - Preliminary No growth-Final to follow 09/23/19 12:06 Tissue - Hip Anaerobic Culture - Preliminary No growth in 48 hours. Laboratory Results 09/23/19 09:15: Crossmatch See Detail 09/27/19 05:57: Sodium 140, Potassium 4.0, Chloride 108 H, Carbon Dioxide 26.0, Anion Gap 6, BUN 26 H, Creatinine 0.93, Estim Creat Clear Calc 69.97, Est GFR (MDRD) Af Amer 99, Est GFR (MDRD) Non-Af 82, BUN/Creatinine Ratio 27.9 H, Glucose 94, Calcium 8.4 L 09/27/19 08:58: Blood Type O POSITIVE, Antibody Screen NEGATIVE, Crossmatch See Detail 09/28/19 05:16: WBC 5.0, RBC 2.79 L, Hgb 8.4 L, Hct 26.5 L, MCV 95.0 H, MCH 30.1, MCHC 31.7 L, RDW Std Deviation 54.0 H, RDW Coeff of [place] 15.6 H, Plt Count 215, MPV 9.0, Immature Gran % (Auto) 0.800, Neut % (Auto) 56.2, Lymph % (Auto) 23.6, [place] % (Auto) 11.4 H, Eos % (Auto) 7.6 H, Baso % (Auto) 0.4, Absolute Neuts (auto) 2.8, Absolute Lymphs (auto) 1.18, Nucleated RBC % 0 09/28/19 05:16: Sodium 141, Potassium 4.1, Chloride 109 H, Carbon Dioxide 26.0, Anion Gap 6, BUN 26 H, Creatinine 0.89, Estim Creat Clear Calc 73.12, Est GFR (MDRD) Af Amer 105, Est GFR (MDRD) Non-Af 87, BUN/Creatinine Ratio 29.3 H, Glucose 97, Calcium 8.3 L Current Medications Acetaminophen (Tylenol) 1,000 mg PO Q8 [facility] Last Admin: 09/28/19 06:25 Dose: 1,000 mg Documented by: Amiodarone HCl (Cordarone) 200 mg PO DAILY@0800 [facility] Last Admin: 09/27/19 09:02 Dose: 200 mg Documented by: [facility] Admin: 09/27/19 18:27 Dose: 81 mg Documented by: Bisacodyl (Dulcolax) 10 mg PO DAILY PRN PRN Reason: Constipation Enteral Nutritional Formula (Ensure Surgery) 237 ml PO TIDCM [facility] Last Admin: 09/27/19 18:27 Dose: 237 ml Documented by: Famotidine (Pepcid) 20 mg PO DAILY [facility] Last Admin: 09/27/19 09:00 Dose: 20 mg Documented by: Fluconazole (Diflucan) 200 mg PO DAILY [facility] Last Admin: 09/27/19 09:00 Dose: 200 mg Documented by: Linezolid (Zyvox) 600 mg PO BID [facility] Last Admin: 09/27/19 22:01 Dose: 600 mg Documented by: Meloxicam (Mobic) 7.5 mg PO BID [facility] Last Admin: 09/27/19 22:01 Dose: 7.5 mg Documented by: Morphine Sulfate () 2 - 4 mg IV Q2H PRN PRN PRN Reason: Pain Score 4-10/10 Morphine Sulfate () 2 - 4 mg IV Q2H PRN PRN PRN Reason: Pain Score 4-10/10 Nystatin (Mycostatin Powder) 1 applic TOPICAL 0600,2200 [facility]; Protocol Last Admin: 09/28/19 06:25 Dose: 1 applicatio Documented by: Ondansetron HCl (Zofran) 4 mg IV Q8H PRN PRN PRN Reason: NAUSEA Oxycodone HCl (Oxyir) 5 - 10 mg PO Q4H PRN PRN PRN Reason: Pain Score 4-10/10 Pantoprazole Sodium (Protonix) 20 mg PO DAILY [facility] Last Admin: 09/27/19 09:01 Dose: 20 mg Documented by: Polysaccharide Iron Complex (Ferrex 150) 150 mg PO DAILYCM [facility] Last Admin: 09/27/19 09:01 Dose: 150 mg Documented by: Promethazine HCl (Phenergan) 12.5 mg IM Q6H PRN PRN; Protocol PRN Reason: NAUSEA/VOMITING Senna/Docusate Sodium (Senokot-S, [place]-Colace) 2 tablet PO BID [facility] Last Admin: 09/27/19 22:02 Dose: Not Given Documented by: Sodium Chloride () 10 - 40 ml IV UD PRN PRN Reason: SALINE FLUSH Last Admin: 09/24/19 22:00 Dose: 10 ml Documented by: Medical Necessity - Tobacco Use Smoking Status: Never smoker Tobacco Use: Non-smoker Assessment/Plan All Active Problems Debility (Resolved) Hip hematoma, left (Resolved) Hip dislocation, left (Resolved) Toe pain, left (Resolved) Toe pain, right (Resolved) Sternal fracture (Resolved) Multiple rib fractures (Resolved) Lumbar transverse process fracture (Resolved) Sacral fracture, closed (Resolved) Fracture of left inferior pubic ramus (Resolved) Fracture of ischial tuberosity (Resolved) Open fracture of right proximal tibia (Resolved) Open fracture of right distal tibia (Resolved) Open fracture of right humerus (Resolved) Right scapula fracture (Resolved) Closed fracture of right distal femur (Resolved) Left femoral shaft fracture (Resolved) Small bowel obstruction (Resolved) Pneumocytosis (Resolved) Metacarpal bone fracture (Resolved) Fracture, metacarpal shaft (Resolved) CMC arthritis, thumb, 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 Continue Pain Medications: Tylenol and OxyIR as needed. Patient has only been requiring Tylenol 3. DVT Prophylaxis: Currently on aspirin 81 mg twice daily but if patient does not mobilize appropriately we will increase his DVT prophylaxis to Lovenox. 4. PT/OT: Weightbearing as tolerated with walker. Continue with posterior hip dislocation precautions strictly for the next 3 months 5. Chronic iron deficiency anemia with postoperative blood loss: Today's H & H: Currently 8.4/26.5. Patient did receive 1 more unit of packed red blood cells yesterday September 27, 2019. Patient is currently without any dizziness or lightheadedness. Asymptomatic. Vitals are stable. 6. Encouraged Incentive Spirometry 7. Continue postoperative medical management per medicine: 8. Continue treatment per infectious disease: Patient is currently taking linezolid and fluconazole. Will cover with these antibiotics while following surgical cultures. Cultures currently without any growth or organisms seen. Per infectious disease we will continue these antibiotics for 2 weeks postoperatively while following cultures 9. Hemovac drain: Drain was removed yesterday on September 27, 2019. Current dressing is clean dry and intact without any breakthrough drainage. 10. Disposition: Plan will be for possible discharge to the transitional care unit at [facility] today if pre-CERT is obtained. Prescriptions are attached to chart. Patient will require 2-week postoperative follow-up in our office at [facility] [employer] on October 07, 2019 at 11 AM. Continue antibiotics per infectious disease. I have reviewed the [place] Automated Rx Reporting System (OARRS) report for this patient for refill pattern and other prescriber involvement as part of the appropriate surveillance for the provision of acute and chronic controlled medications. The report was requested and reviewed on the date of this entry and was considered in the prescribing process.
--- NOTE | 2019-09-28 06:48 | DCINST_ITS ---
Discharge Diet: No Restrictions Discharge Activity: May Not Drive - while taking narcotic pain medications. May shower in (days): 0 - Okay to shower and get incision wet Ice area for (Minutes): 20 - Every 1-2 hours while awake Weight Bearing Status: Weight bearing as tolerated - With walker Elevate: Operative Extremity Additional Activity Instructions:: Wear John bandages for 2 weeks. DO NOT use alcohol with narcotic pain medication. DO NOT make important decisions while taking narcotic medication. If you have problems with taking your medication (rash, itching, nausea, etc.) call the office at once. Call your doctor if your incision/area has: Increased Pain/ Swelling, Increased Redness, Foul Smelling Discharge Call your doctor if you observe: Fever of 101 or Higher Remove Dressing in (days):: 5 - Okay to remove on October 03, 2019 Additional Instructions: After removal of dressing. Okay to use dry dressing only. DVT prophylaxis: Take aspirin 81 mg twice daily for 4 weeks postoperatively Pain control: Continue with Tylenol primarily for pain control. Only use oxycodone for breakthrough pain. Antibiotics: Continue recommendations per infectious disease. We will continue with fluconazole and linezolid for 2 weeks postoperatively while following cultures Allergies/Adverse Reactions: Allergies apple Allergy (Verified 09/23/19 09:09) Rash Penicillins [PCN] Allergy (Verified 09/23/19 09:09) Rash Medications to take at Discharge Amiodarone HCl 200 mg PO DAILY@0800 09/01/18 Bisacodyl [Dulcolax] 10 mg PO DAILY PRN tab 05/22/19 Iron Polysaccharide Complex [Ferrex 150] 150 mg PO DAILYCM 06/24/19 Nystatin Powder [Mycostatin Powder] 1 applic TOPICAL 0600,2200 06/24/19 Pantoprazole Sodium [Protonix] 20 mg PO DAILY 06/24/19 Fluconazole [Diflucan] 200 mg PO DAILY 10 Days tab 09/25/19 Linezolid [Zyvox] 600 mg PO BID 10 Days tab 09/25/19 Acetaminophen [Tylenol] 1,000 mg PO Q8 #100 tab 09/28/19 Aspirin [Aspirin, Baby] 81 mg PO BIDCM 23 Days tab 09/28/19 Famotidine [Pepcid] 20 mg PO DAILY #23 tab 09/28/19 Meloxicam [Mobic] 7.5 mg PO BID #46 tab 09/28/19 Oxycodone [Oxyir] 5 - 10 mg PO Q4H PRN PRN 3 Days #20 tab 09/28/19 The following prescriptions were given: Meloxicam [Mobic] 7.5 mg PO BID #46 tab Prescription Printed Oxycodone [Oxyir] 5 - 10 mg PO Q4H PRN PRN 3 Days #20 tab PRN Reason: Pain Score 4-10/10 Prescription Printed Famotidine [Pepcid] 20 mg PO DAILY #23 tab Prescription Printed Acetaminophen [Tylenol] 1,000 mg PO Q8 #100 tab Prescription Printed Primary Care Physician: Christos Golden [Primary Care Provider] - Test Results: Test results from this visit will be discussed in further detail at your follow- up appointment, if applicable. Please Follow Up With: Richard Call PA-C When: 10/07/19 @ 11:00 am
[2019-09-28 08:22] VITALS: BP 143/69; PULSE 79; RESP 18; TEMP 36.8; O2SAT 100
[2019-09-28] MEDS: Amiodarone 200 MG Tablet PO (08:29)
[2019-09-28] MEDS: Aspirin 81 MG TAB.CHEW PO (08:29)
[2019-09-28] MEDS: Fluconazole 100 MG Tablet 200 MG PO (08:30)
[2019-09-28] MEDS: Famotidine 20 MG Tablet PO (08:30)
[2019-09-28] MEDS: Meloxicam 7.5 MG Tablet PO (08:30)
[2019-09-28] MEDS: Iron Polysaccharide Complex 150 MG CAPSULE PO (08:30)
--- NOTE | 2019-09-28 08:30 | NURSING ---
Scop patch removed at this time from behind right ear. area then cleansed with alcohol wipe.
[2019-09-28] MEDS: Pantoprazole Sodium 20 MG Tablet PO (08:31)
[2019-09-28] MEDS: Linezolid 600 MG Tablet PO (08:31)
[2019-09-28] MEDS: Senna/Docusate Sodium 1 Tablet 2 TABLET PO (08:31)
[2019-09-28 12:39] VITALS: BP 147/76; PULSE 80; RESP 16; TEMP 36.3; O2SAT 97
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
[2019-09-28] MEDS: Ensure Surgery 237 ML LIQUID PO (12:59)
--- NOTE | 2019-09-28 13:30 | CASEMGMT ---
Social Work Note SELVIN spoke with Katlin in TCU. Katlin states pre-cert was obtained yesterday, pt is able to discharge to TCU today. SELVIN updated PA, pt is medically ready for discharge. SELVIN updated pt on approval for TCU and discharge today. Plan: TCU today Charline Lynne [employer], [employer]
--- NOTE | 2019-09-28 13:52 | PN_ITS ---
Reason for Visit: Follow-up on left total hip replacement/anemia/infection Subjective: Patient was seen and examined. He denied any new complaints. Being discharged today. Denied any fever or chills. Objective: Physical exam: General: Alert, Oriented x3, Cooperative, No apparent distress HEENT: Atraumatic, PERRLA, EOMI, Normocephalic Oral: Dry Mucosa Neck: Supple, No JVD, Negative Carotid Bruits Lungs: Clear to auscultation, Normal air movement, No rhonchi, No wheeze Cardiovascular: Regular rate, Regular Rhythm, Normal S1, Normal S2, No murmurs Abdomen: Bowel Sounds Present, Soft, Non Tender, Non-Distended, No Hepato- splenomegaly Extremities: No clubbing, No cyanosis, No edema, Capillary Refill Less than 3 Seconds Skin: No rashes, No breakdown Musculoskeletal: - - left hip drain in place, draining bloody fluid Lymphatic: No Cervical, Supraclavicular, or Inguinal Adenopathy Neurological: Cranial nerves II-XII grossly intact, Neuro grossly intact, Motor Exam 5/5 strength throughout Psych/Mental Status: Normal Affect, Appropriate, Alert and oriented to time, place, person, mood and affect Vitals/I&O's: Vital Signs Temp Pulse Resp BP Pulse Ox 97.4 F L 80 16 147/76 H 97 09/28/19 12:39 09/28/19 12:39 09/28/19 12:39 09/28/19 12:39 09/28/19 12:39 Oxygen Flow Rate (L/min) 6 Oxygen Delivery Method Room Air Weight: 108.862 kg Body Mass Index (BMI) 30.8 Intake and Output for Last 24 Hours 09/26/19 09/27/19 09/28/19 23:59 23:59 23:59 Intake Total 2350 / 2350 2900 / 2900 650 / 650 Output Total 3030 / 3030 1000 / 1000 600 / 600 Balance -680 / -680 1900 / 1900 50 / 50 Microbiology Past 72 Hours 09/23/19 12:17 Tissue - Hip Gram Stain - Final 09/23/19 12:17 Tissue - Hip Wound Culture - Preliminary No growth-Final to follow 09/23/19 12:17 Tissue - Hip Anaerobic Culture - Final No anaerobic bacteria isolated. 09/23/19 12:14 Tissue - Hip Gram Stain - Final 09/23/19 12:14 Tissue - Hip Wound Culture - Preliminary No growth-Final to follow 09/23/19 12:14 Tissue - Hip Anaerobic Culture - Final No anaerobic bacteria isolated. 09/23/19 12:12 Tissue - Hip Gram Stain - Final 09/23/19 12:12 Tissue - Hip Wound Culture - Preliminary No growth-Final to follow 09/23/19 12:12 Tissue - Hip Anaerobic Culture - Final No anaerobic bacteria isolated. 09/23/19 12:06 Tissue - Hip Gram Stain - Final 09/23/19 12:06 Tissue - Hip Wound Culture - Preliminary No growth-Final to follow 09/23/19 12:06 Tissue - Hip Anaerobic Culture - Final No anaerobic bacteria isolated. 09/23/19 12:04 Tissue - Hip Gram Stain - Final 09/23/19 12:04 Tissue - Hip Wound Culture - Preliminary No growth-Final to follow 09/23/19 12:04 Tissue - Hip Anaerobic Culture - Final No anaerobic bacteria isolated. Laboratory Results 09/27/19 08:58: Crossmatch See Detail 09/28/19 05:16: WBC 5.0, RBC 2.79 L, Hgb 8.4 L, Hct 26.5 L, MCV 95.0 H, MCH 30.1, MCHC 31.7 L, RDW Std Deviation 54.0 H, RDW Coeff of Morenita 15.6 H, Plt Count 215, MPV 9.0, Immature Gran % (Auto) 0.800, Neut % (Auto) 56.2, Lymph % (Auto) 23.6, [place] % (Auto) 11.4 H, Eos % (Auto) 7.6 H, Baso % (Auto) 0.4, Absolute Neuts (auto) 2.8, Absolute Lymphs (auto) 1.18, Nucleated RBC % 0 09/28/19 05:16: Sodium 141, Potassium 4.1, Chloride 109 H, Carbon Dioxide 26.0, Anion Gap 6, BUN 26 H, Creatinine 0.89, Estim Creat Clear Calc 73.12, Est GFR (MDRD) Af Amer 105, Est GFR (MDRD) Non-Af 87, BUN/Creatinine Ratio 29.3 H, Glucose 97, Calcium 8.3 L Current Medications Acetaminophen (Tylenol) 1,000 mg PO Q8 [facility] Last Admin: 09/28/19 13:28 Dose: 1,000 mg Documented by: Amiodarone HCl (Cordarone) 200 mg PO DAILY@0800 [facility] Last Admin: 09/28/19 08:29 Dose: 200 mg Documented by: Aspirin ([facility]in, Baby) [facility] Admin: 09/28/19 08:29 Dose: 81 mg Documented by: Bisacodyl (Dulcolax) 10 mg PO DAILY PRN PRN Reason: Constipation Enteral Nutritional Formula (Ensure Surgery) 237 ml PO TIDCM [facility] Last Admin: 09/28/19 12:59 Dose: 237 ml Documented by: Famotidine (Pepcid) 20 mg PO DAILY [facility] Last Admin: 09/28/19 08:30 Dose: 20 mg Documented by: Fluconazole (Diflucan) 200 mg PO DAILY [facility] Last Admin: 09/28/19 08:30 Dose: 200 mg Documented by: Linezolid (Zyvox) 600 mg PO BID [facility] Last Admin: 09/28/19 08:31 Dose: 600 mg Documented by: Meloxicam (Mobic) 7.5 mg PO BID [facility] Last Admin: 09/28/19 08:30 Dose: 7.5 mg Documented by: Morphine Sulfate () 2 - 4 mg IV Q2H PRN PRN PRN Reason: Pain Score 4-10/10 Morphine Sulfate () 2 - 4 mg IV Q2H PRN PRN PRN Reason: Pain Score 4-10/10 Nystatin (Mycostatin Powder) 1 applic TOPICAL 0600,2200 [facility]; Protocol Last Admin: 09/28/19 06:25 Dose: 1 applicatio Documented by: Ondansetron HCl (Zofran) 4 mg IV Q8H PRN PRN PRN Reason: NAUSEA Oxycodone HCl (Oxyir) 5 - 10 mg PO Q4H PRN PRN PRN Reason: Pain Score 4-10/10 Pantoprazole Sodium (Protonix) 20 mg PO DAILY [facility] Last Admin: 09/28/19 08:31 Dose: 20 mg Documented by: Polysaccharide Iron Complex (Ferrex 150) [facility] Last Admin: 09/28/19 08:30 Dose: 150 mg Documented by: Promethazine HCl (Phenergan) 12.5 mg IM Q6H PRN PRN; Protocol PRN Reason: NAUSEA/VOMITING Senna/Docusate Sodium (Senokot-S, Herminia-Colace) 2 tablet PO BID [facility] Last Admin: 09/28/19 08:31 Dose: 2 tablet Documented by: Sodium Chloride () 10 - 40 ml IV UD PRN PRN Reason: SALINE FLUSH Last Admin: 09/24/19 22:00 Dose: 10 ml Documented by: STROKE Vital Signs/Narrative: Vital Signs Temp Pulse Resp BP Pulse Ox 09/28/19 12:39 97.4 F L 80 16 147/76 H 97 Medical Necessity - Tobacco Use Smoking Status: Never smoker Tobacco Use: Non-smoker Assessment/Plan All Active Problems Debility (Resolved) Hip hematoma, left (Resolved) Hip dislocation, left (Resolved) Toe pain, left (Resolved) Toe pain, right (Resolved) Sternal fracture (Resolved) Multiple rib fractures (Resolved) Lumbar transverse process fracture (Resolved) Sacral fracture, closed (Resolved) Fracture of left inferior pubic ramus (Resolved) Fracture of ischial tuberosity (Resolved) Open fracture of right proximal tibia (Resolved) Open fracture of right distal tibia (Resolved) Open fracture of right humerus (Resolved) Right scapula fracture (Resolved) Closed fracture of right distal femur (Resolved) Left femoral shaft fracture (Resolved) Small bowel obstruction (Resolved) Pneumocytosis (Resolved) Metacarpal bone fracture (Resolved) Fracture, metacarpal shaft (Resolved) CMC arthritis, thumb, 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 Acute on chronic anemia secondary to acute blood loss from left total hip revision, Transfuse 3 units of packed RBCs in this admission Hemoglobin today is 8.4 3. Paroxysmal atrial fibrillation, rate controlled, on oral amiodarone 4. DVT PPx- per ortho, aspirin 81mg po BID Inpatient E&M: 72090 Subs Hosp L2
--- NOTE | 2019-09-28 14:03 | NURSING ---
report called to you, in tcu at this time.
== END 2019-09-28 13:50 | disposition skilled nursing facility (03) | DRG 467 ==
LOC: ACINP 09:35 → MS3 14:55
PROVIDERS: Internal Medicine; Student in an Organized Health Care Education/Training Program; Admitting Provider Specialist; PCP Internal Medicine; Referring Provider Specialist; Visit Provider Internal Medicine
PROC: 0SRB049 Replacement of Left Hip Joint with Ceramic on Polyethylene Synthetic Substitute, Cemented, Open Approach (ICD-10-PCS; CPT 27134; principal; 2019-09-23 10:35)
DX: Z47.32 Aftercare following explantation of hip joint prosthesis (principal); D62 Acute posthemorrhagic anemia; K21.9 Gastro-esophageal reflux disease without esophagitis; E78.00 Pure hypercholesterolemia, unspecified; I10 Essential (primary) hypertension; Z86.718 Personal history of other venous thrombosis and embolism; I48.0 Paroxysmal atrial fibrillation; D50.9 Iron deficiency anemia, unspecified; Z79.82 Long term (current) use of aspirin
CPT/HCPCS: 36415; 73502; 73551; 80048; 82962; 85014; 85018; 85025; 85027; 86850; 86900; 86901; 86920; 86922; 87015; 87070; 87075; 87077; 87102; 87106; 87116; 87176; 87205; 87206; 97110; 97116; 97163; 97167; 97530; 97535; 99251; C1776; J1756; J7040; J7120; P9016; A4216; G0463; J2405

== ENCOUNTER 2019-09-28 14:00 | Inpatient (IN) | payer MEDICARE, SELFPAY ==
[2019-09-23 09:28] VITALS: BMI 30.8
[2019-09-28 14:41] VITALS: BP 134/69; PULSE 74; RESP 14; TEMP 36.2; O2SAT 98
[2019-09-28 15:49] VITALS: BMI 30.9
[2019-09-28 15:54] VITALS: BMI 31.0
[2019-09-28] MEDS: Linezolid 600 MG Tablet PO (18:10)
[2019-09-28] MEDS: Aspirin 81 MG TAB.CHEW PO (18:10)
[2019-09-28] MEDS: Meloxicam 7.5 MG Tablet PO (18:10)
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
[2019-09-28] MEDS: Nystatin Powder 15gm Bottle 1 APPLIC TOPICAL (22:23)
[2019-09-28] MEDS: Acetaminophen 500 MG Tablet 1000 MG PO (22:24)
[2019-09-29] MEDS: Acetaminophen 500 MG Tablet 1000 MG PO ×3 (04:57→20:57)
[2019-09-29] MEDS: Fluconazole 100 MG Tablet 200 MG PO (04:58)
[2019-09-29] MEDS: Famotidine 20 MG Tablet PO (04:58)
[2019-09-29] MEDS: Linezolid 600 MG Tablet PO ×2 (04:58→17:40)
[2019-09-29] MEDS: Meloxicam 7.5 MG Tablet PO ×2 (04:58→17:40)
[2019-09-29] MEDS: Pantoprazole Sodium 20 MG Tablet PO (04:58)
[2019-09-29] MEDS: Nystatin Powder 15gm Bottle 1 APPLIC TOPICAL ×2 (04:58→20:56)
[2019-09-29 06:03] LABS: Absolute Lymphocyte Count 1.16 X10^3/uL (0.83-4.51); Absolute Neutrophil Count 2.8 X10^3/uL (2.0-7.7); Basophil# 0.04 X10^3/uL; Basophil% 0.8 % (0-1); Eosinophil# 0.36 X10^3/uL; Eosinophils% 7.1 % (0-5); Hemoglobin 8.4 g/dL (13.0-16.5); Lymphocyte # 1.16 X10^3/ul (4.0); Mean Corp Hgb Conc 32.3 g/dL (32-36); Mean Corpuscular Volume 95.9 fL (80-94); Mean Platelet Vol. 8.9 fl (6.2-12.0); Monocyte# 0.66 X10^3/uL; Monocyte% 13.1 % (0-10); NRBC Flagged by Analyzer 0 % (0-5); Neutrophil # 2.79 X10^3/uL (2.7-7.7); Neutrophil % 55.2 % (47-70); Platelet Count 216 K/mm3 (150-450); RBC Distribution Width CV 15.3 % (11.6-14.6); RBC Distribution Width SD 52.9 fl (35.1-43.9); Red Blood Count 2.71 M/mm3 (4.6-6.2); White Blood Count 5.1 K/mm3 (4.4-11.0)
[2019-09-29 06:24] LABS: Anion Gap 6 (5-15); BUN 24 mg/dL (7-18); BUN/Creat Ratio 25.5 RATIO (10-20); Calcium,Total 8.3 mg/dL (8.5-10.1); Chloride 110 mmol/L (98-107); Creatinine, Serum 0.94 mg/dL (0.70-1.30); EST Glomerular Filtration Rate 81 mL/min (>60); Est Glom Filt Rate - Afr Amer 99 mL/min (>60); Estimated Creatinine Clearance 69.23 ml/min; Glucose 100 mg/dL (74-106); Potassium 4.2 mmol/L (3.5-5.1); Sodium Level 141 mmol/L (136-145)
[2019-09-29] MEDS: Aspirin 81 MG TAB.CHEW PO ×2 (08:35→16:08)
[2019-09-29] MEDS: Iron Polysaccharide Complex 150 MG CAPSULE PO (08:35)
[2019-09-29] MEDS: Amiodarone 200 MG Tablet PO (08:35)
--- NOTE | 2019-09-29 10:14 | PN.ID_ITS ---
Subjective: Feeling good, did have some bleeding from incision with walking, no fever - Physical Exam Vitals/I&O's: Vital Signs Temp Pulse Resp BP Pulse Ox 97.2 F L 74 14 134/69 H 98 09/28/19 14:41 09/28/19 14:41 09/28/19 14:41 09/28/19 14:41 09/28/19 14:41 Oxygen Delivery Method Room Air Weight: 109.458 kg Body Mass Index (BMI) 30.9 Intake and Output for Last 24 Hours 09/27/19 09/28/19 09/29/19 23:59 23:59 23:59 Intake Total 120 / 120 Balance 120 / 120 General: Alert, No apparent distress Lungs: Clear to auscultation, Normal air movement Cardiovascular: Regular rate, Regular Rhythm Abdomen: Soft, Non Tender, Non-Distended Skin: No rashes Laboratory Results 09/29/19 05:43: WBC 5.1, RBC 2.71 L, Hgb 8.4 L, Hct 26.0 L, MCV 95.9 H, MCH 31.0, MCHC 32.3, RDW Std Deviation 52.9 H, RDW Coeff of Morenita 15.3 H, Plt Count 216, MPV 8.9, Immature Gran % (Auto) 0.800, Neut % (Auto) 55.2, Lymph % (Auto) 23.0, Ponce % (Auto) 13.1 H, Eos % (Auto) 7.1 H, Baso % (Auto) 0.8, Absolute Neuts (auto) 2.8, Absolute Lymphs (auto) 1.16, Nucleated RBC % 0 09/29/19 05:43: Sodium 141, Potassium 4.2, Chloride 110 H, Carbon Dioxide 25.0, Anion Gap 6, BUN 24 H, Creatinine 0.94, Estim Creat Clear Calc 69.23, Est GFR (MDRD) Af Amer 99, Est GFR (MDRD) Non-Af 81, BUN/Creatinine Ratio 25.5 H, Glucose 100, Calcium 8.3 L Current Medications Acetaminophen (Tylenol) 1,000 mg PO Q8 [facility] Last Admin: 09/29/19 04:57 Dose: 1,000 mg Documented by: Amiodarone HCl (Cordarone) 200 mg PO DAILY@0800 [facility] Last Admin: 09/29/19 08:35 Dose: 200 mg Documented by: Aspirin ([facility]in, Baby) [facility] Stop: 10/26/19 08:01 Last Admin: 09/29/19 08:35 Dose: 81 mg Documented by: Bisacodyl (Dulcolax) 10 mg PO DAILY PRN PRN Reason: Constipation Famotidine (Pepcid) 20 mg PO DAILY [facility] Stop: 10/26/19 06:01 Last Admin: 09/29/19 04:58 Dose: 20 mg Documented by: Fluconazole (Diflucan) 200 mg PO DAILY [facility] Stop: 10/13/19 23:59 Last Admin: 09/29/19 04:58 Dose: 200 mg Documented by: Linezolid (Zyvox) 600 mg PO BID [facility] Last Admin: 09/29/19 04:58 Dose: 600 mg Documented by: Meloxicam (Mobic) 7.5 mg PO BID [facility] Last Admin: 09/29/19 04:58 Dose: 7.5 mg Documented by: Nystatin (Mycostatin Powder) 1 applic TOPICAL 0600,2200 [facility]; Protocol Last Admin: 09/29/19 04:58 Dose: 1 applicatio Documented by: Oxycodone HCl (Oxyir) 5 mg PO Q4H PRN PRN PRN Reason: Pain Score 4-10/10 Pantoprazole Sodium (Protonix) 20 mg PO DAILY [facility] Last Admin: 09/29/19 04:58 Dose: 20 mg Documented by: Polyethylene Glycol (Miralax) 17 gm PO DAILY PRN PRN PRN Reason: Constipation Polysaccharide Iron Complex (Ferrex 150) [facility] Last Admin: 09/29/19 08:35 Dose: 150 mg Documented by: Senna/Docusate Sodium (Senokot-S, Herminia-Colace) 1 tablet PO BID PRN PRN PRN Reason: Constipation Medical Necessity - Tobacco Use Smoking Status: Never smoker Tobacco Use: Non-smoker Route of nutrition/ use of supplements: [] Nutritional Intake: [] IV Site: [] Powell Catheter: [] - Assessment/Plan Antibiotics: [] Assessment/Plan: [] Now s/p spacer removal and prosthetic joint placement today 09/23/[address] Collado. H/o CoNS, VRE, and melissa PJI. Will cover with po linezolid and fluc for now while surg cx pending. Plan on 2 week total course until cxs are finalized. Will follow
--- NOTE | 2019-09-29 10:44 | PHA.CONS_ITS ---
<Belgica Infante M - Last Filed: 09/29/19 10:44> Progress Note - Pharmacy Subjective: TCU ADMISSION Objective: Allergies apple Allergy (Verified 09/23/19 09:09) Rash Penicillins [PCN] Allergy (Verified 09/23/19 09:09) Rash Current Medications Generic Name Dose Route Start Last Admin Trade Name Freq PRN Reason Stop Dose Admin Acetaminophen 1,000 mg 09/28/19 22:00 09/29/19 04:57 Tylenol PO 1,000 mg Q8 [facility] Administration Amiodarone HCl 200 mg 09/29/19 08:00 09/29/19 08:35 Cordarone PO 200 mg DAILY@0800 [facility] Administration Aspirin 81 mg 09/28/19 17:00 09/29/19 08:35 Aspirin, Baby PO 10/26/19 08:01 81 mg BIDCM [facility] Administration Bisacodyl 10 mg 09/28/19 15:08 Dulcolax PO DAILY PRN Constipation Famotidine 20 mg 09/29/19 06:00 09/29/19 04:58 Pepcid PO 10/26/19 06:01 20 mg DAILY [facility] Administration Fluconazole 200 mg 09/29/19 06:00 09/29/19 04:58 Diflucan PO 10/13/19 23:59 200 mg DAILY [facility] Administration Linezolid 600 mg 09/28/19 18:00 09/29/19 04:58 Zyvox PO 600 mg BID [facility] Administration Meloxicam 7.5 mg 09/28/19 18:00 09/29/19 04:58 Mobic PO 7.5 mg BID [facility] Administration Nystatin 1 applic 09/28/19 22:00 09/29/19 04:58 Mycostatin Powder TOPICAL 1 applicatio 0600,2200 [facility] Administration Protocol Oxycodone HCl 5 mg 09/28/19 20:56 Oxyir PO Q4H PRN PRN Pain Score 4-10/10 Pantoprazole Sodium 20 mg 09/29/19 06:00 09/29/19 04:58 Protonix PO 20 mg DAILY [facility] Administration Polyethylene Glycol 17 gm 09/28/19 20:54 Miralax PO DAILY PRN PRN Constipation Polysaccharide Iron Complex 150 mg 09/29/19 08:00 09/29/19 08:35 Ferrex 150 PO 150 mg DAILYCM [facility] Administration Senna/Docusate Sodium 1 tablet 09/28/19 20:55 Senokot-S, Herminia-Colace PO BID PRN PRN Constipation Vital Signs Temp Pulse Resp BP Pulse Ox 97.2 F L 74 14 134/69 H 98 09/28/19 14:41 09/28/19 14:41 09/28/19 14:41 09/28/19 14:41 09/28/19 14:41 Oxygen Delivery Method Room Air Weight: 109.458 kg Body Mass Index (BMI) 30.9 Sodium 141 mmol/L (136-145) 09/29/19 05:43 Potassium 4.2 mmol/L (3.5-5.1) 09/29/19 05:43 Chloride 110 mmol/L (98-107) H 09/29/19 05:43 Carbon Dioxide 25.0 mmol/L (21.0-32.0) 09/29/19 05:43 Anion Gap 6 (5-15) 09/29/19 05:43 BUN 24 mg/dL (7-18) H 09/29/19 05:43 Creatinine 0.94 mg/dL (0.70-1.30) 09/29/19 05:43 Est GFR (MDRD) Af Amer 99 mL/min (>60) 09/29/19 05:43 Est GFR (MDRD) Non-Af 81 mL/min (>60) 09/29/19 05:43 BUN/Creatinine Ratio 25.5 RATIO (10-20) H 09/29/19 05:43 Glucose 100 mg/dL (74-106) 09/29/19 05:43 Assessment/Plan: 1. Pain: Tylenol 1,000mg PO Q8h, Oxycodone 5mg PO Q4h PRN Pain 4-04/23. Please continue to monitor for increased/decreased Pain, PRN medication usage. *2. L. Hip infection: Linezolid 600mg PO BID, Fluconazole 200mg PO Daily thru 10/13/19. Please continue to monitor for QTc prolongation, obtain weekly CBC with diff (initial test 7 days after start of Zyvox). ID Consulted on case. 3. Atrial fibrillation: Amiodarone 200mg PO Daily. Please continue to monitor pulse, S/S amiodarone toxicity. 4. DVT Prophylaxis: Aspirin 81mg PO BID thru 10/26/19. Please continue to monitor for S/S bleeding/bruising. 5. GERD: Famotidine 20mg PO Daily, thru 10/26/19, Protonix 20mg PO Daily. Please continue to monitor for S/S GI Bleeding. Please consider monotherapy if clinically appropriate- Protonix dose can be increased if symptoms still arise. 6. Osteoarthritis: Mobic 7.5mg PO BID. Please continue to monitor for improvement in symptoms, S/S bleeding since on aspirin BID as well at this time. 7. General Wellness: Ferrex 150mg PO Daily. Please continue to monitor. Psychotropic Medications: None Unnecessary Medications: None Bowel Regimen: Miralax 17g PO Daily PRN, Senna/ Docusate 1 tab PO BID PRN, Bisacodyl 10mg PO Daily PRN. Please continue to monitor for increased/decreased constipation and/or diarrhea. Date of Note:: 09/29/19 - Provider Comments Provider responsibility: Provider responsible to enter orders to implement recommendations <Hank Henriquez Chi - Last Filed: 09/29/19 12:43> Progress Note - Pharmacy Subjective: [] Objective: Allergies apple Allergy (Verified 09/23/19 09:09) Rash Penicillins [PCN] Allergy (Verified 09/23/19 09:09) Rash Current Medications Generic Name Dose Route Start Last Admin Trade Name Freq PRN Reason Stop Dose Admin Acetaminophen 1,000 mg 09/28/19 22:00 09/29/19 04:57 Tylenol PO 1,000 mg Q8 [facility] Administration Amiodarone HCl 200 mg 09/29/19 08:00 09/29/19 08:35 Cordarone PO 200 mg DAILY@0800 [facility] Administration Aspirin 81 mg 09/28/19 17:00 09/29/19 08:35 Aspirin, Baby PO 10/26/19 08:01 81 mg BIDCM [facility] Administration Bisacodyl 10 mg 09/28/19 15:08 Dulcolax PO DAILY PRN Constipation Famotidine 20 mg 09/29/19 06:00 09/29/19 04:58 Pepcid PO 10/26/19 06:01 20 mg DAILY [facility] Administration Fluconazole 200 mg 09/29/19 06:00 09/29/19 04:58 Diflucan PO 10/13/19 23:59 200 mg DAILY [facility] Administration Linezolid 600 mg 09/28/19 18:00 09/29/19 04:58 Zyvox PO 600 mg BID [facility] Administration Meloxicam 7.5 mg 09/28/19 18:00 09/29/19 04:58 Mobic PO 7.5 mg BID [facility] Administration Nystatin 1 applic 09/28/19 22:00 09/29/19 04:58 Mycostatin Powder TOPICAL 1 applicatio 0600,2200 [facility] Administration Protocol Oxycodone HCl 5 mg 09/28/19 20:56 Oxyir PO Q4H PRN PRN Pain Score 4-10/10 Pantoprazole Sodium 20 mg 09/29/19 06:00 09/29/19 04:58 Protonix PO 20 mg DAILY [facility] Administration Polyethylene Glycol 17 gm 09/28/19 20:54 Miralax PO DAILY PRN PRN Constipation Polysaccharide Iron Complex 150 mg 09/29/19 08:00 09/29/19 08:35 Ferrex 150 PO 150 mg DAILYCM [facility] Administration Senna/Docusate Sodium 1 tablet 09/28/19 20:55 Senokot-S, Herminia-Colace PO BID PRN PRN Constipation Vital Signs Temp Pulse Resp BP Pulse Ox 97.2 F L 74 14 134/69 H 98 09/28/19 14:41 09/28/19 14:41 09/28/19 14:41 09/28/19 14:41 09/28/19 14:41 Oxygen Delivery Method Room Air Weight: 109.458 kg Body Mass Index (BMI) 30.9 Sodium 141 mmol/L (136-145) 09/29/19 05:43 Potassium 4.2 mmol/L (3.5-5.1) 09/29/19 05:43 Chloride 110 mmol/L (98-107) H 09/29/19 05:43 Carbon Dioxide 25.0 mmol/L (21.0-32.0) 09/29/19 05:43 Anion Gap 6 (5-15) 09/29/19 05:43 BUN 24 mg/dL (7-18) H 09/29/19 05:43 Creatinine 0.94 mg/dL (0.70-1.30) 09/29/19 05:43 Est GFR (MDRD) Af Amer 99 mL/min (>60) 09/29/19 05:43 Est GFR (MDRD) Non-Af 81 mL/min (>60) 09/29/19 05:43 BUN/Creatinine Ratio 25.5 RATIO (10-20) H 09/29/19 05:43 Glucose 100 mg/dL (74-106) 09/29/19 05:43 Assessment/Plan: Psychotropic Medications: Unnecessary Medications: Bowel Regimen: - Provider Comments Provider responsibility: Provider responsible to enter orders to implement recommendations Provider Comments to Recommendations by Pharmacy: Agree
[2019-09-29 14:12] VITALS: BP 125/72; PULSE 74; RESP 16; TEMP 36.6; O2SAT 97
[2019-09-30] MEDS: Acetaminophen 500 MG Tablet 1000 MG PO ×3 (05:28→21:13)
[2019-09-30] MEDS: Linezolid 600 MG Tablet PO ×2 (05:28→17:23)
[2019-09-30] MEDS: Pantoprazole Sodium 20 MG Tablet PO (05:29)
[2019-09-30] MEDS: Meloxicam 7.5 MG Tablet PO ×2 (05:29→17:23)
[2019-09-30] MEDS: Famotidine 20 MG Tablet PO (05:29)
[2019-09-30] MEDS: Fluconazole 100 MG Tablet 200 MG PO (05:29)
[2019-09-30] MEDS: Nystatin Powder 15gm Bottle 1 APPLIC TOPICAL ×2 (05:30→22:39)
[2019-09-30] MEDS: Amiodarone 200 MG Tablet PO (08:03)
[2019-09-30] MEDS: Iron Polysaccharide Complex 150 MG CAPSULE PO (08:03)
[2019-09-30] MEDS: Aspirin 81 MG TAB.CHEW PO ×2 (08:03→17:23)
--- NOTE | 2019-09-30 11:30 | NURSING ---
PT. WHEELING SELF IN WC AROUND HALLWAY. DENIES C/O.
--- NOTE | 2019-09-30 13:19 | NURSING ---
PT. STOOD WITH RN ASSIST AND USE OF WALKER. DRESSING TO L. HIP ASSESSED: LARGE AMT. OF OLD DRAINAGE, SMALL AMT. OF NEW BRIGHT DRAINAGE.
[2019-09-30 14:02] VITALS: BP 138/75; PULSE 73; RESP 17; TEMP 36.7; O2SAT 99
--- NOTE | 2019-09-30 15:03 | NURSING ---
PT. BACK TO ROOM FROM THERAPY. ANTOINETTE IN TO ASSESS L.HIP DRESSING. OLD DRESSING REMOVED AND NEW DRESSING APPLIED. BLEEDING APPEARS TO BE COMING FROM 2 AREAS OF INCISION.
--- NOTE | 2019-09-30 15:11 | NURSING ---
Rosita, wound nurse applied x2 mepilex to LT hip incision, mod amt serosang drng from incision. Wound nurse will assess wound tomorrow and may apply wound vac.
--- NOTE | 2019-09-30 15:17 | NURSING ---
wound photo: left hip
--- NOTE | 2019-09-30 16:23 | CHAPLAIN ---
Type of Pastoral Visit ___ Initial Visit _x__ Follow-up Visit ___ On-call Visit ___ General Patient Visit ___ Spiritual Assessment ___ Family Conference ___ Bereavement ___ Rapid Response ___ Code Blue ___ Other (describe below) Pastoral Care Referral From _x__ Patient ___ Family ___ Nurse ___ Physician ___ Leaflet Or Newspaper Deliverer ___ Painting Trades Worker ___ Other (describe below) Sacrament/Intervention _x__ Active listening ___ Anointing ___ Mormonism ___ Bereavement ___ Communion ___ Gissell exploration ___ ___ Life review _x__ Prayer ___ Reconciliation ___ Sacrament of Sick _x__ Supportive presence ___ Wedding ___ Other (describe below) Pastoral Comments
[2019-10-01] MEDS: Acetaminophen 500 MG Tablet 1000 MG PO ×3 (05:30→21:01)
[2019-10-01] MEDS: Pantoprazole Sodium 20 MG Tablet PO (05:30)
[2019-10-01] MEDS: Linezolid 600 MG Tablet PO ×2 (05:30→17:29)
[2019-10-01] MEDS: Fluconazole 100 MG Tablet 200 MG PO (05:31)
[2019-10-01] MEDS: Famotidine 20 MG Tablet PO (05:31)
[2019-10-01] MEDS: Meloxicam 7.5 MG Tablet PO ×2 (05:31→17:29)
[2019-10-01] MEDS: Nystatin Powder 15gm Bottle 1 APPLIC TOPICAL ×2 (05:31→21:01)
[2019-10-01] MEDS: Aspirin 81 MG TAB.CHEW PO ×2 (07:58→16:24)
[2019-10-01] MEDS: Amiodarone 200 MG Tablet PO (07:58)
[2019-10-01] MEDS: Iron Polysaccharide Complex 150 MG CAPSULE PO (07:58)
[2019-10-01 08:00] VITALS: BP 143/63; PULSE 73
--- NOTE | 2019-10-01 08:58 | NURSING ---
in to reassess the left hip dressing. there is a moderate amount of bloody drainage noted on the old dressing. wound VAC to be applied today. pt wanted to use BSC first. wound VAC to be applied at 75mmHg low continuous suction.
[2019-10-01 14:40] VITALS: BP 143/79; PULSE 71; RESP 16; TEMP 36.7; O2SAT 98
[2019-10-02] MEDS: Acetaminophen 500 MG Tablet 1000 MG PO ×3 (04:40→21:21)
[2019-10-02] MEDS: Linezolid 600 MG Tablet PO ×2 (04:40→17:20)
[2019-10-02] MEDS: Famotidine 20 MG Tablet PO (04:41)
[2019-10-02] MEDS: Meloxicam 7.5 MG Tablet PO ×2 (04:41→17:20)
[2019-10-02] MEDS: Fluconazole 100 MG Tablet 200 MG PO (04:41)
[2019-10-02] MEDS: Pantoprazole Sodium 20 MG Tablet PO (04:41)
[2019-10-02] MEDS: Nystatin Powder 15gm Bottle 1 APPLIC TOPICAL ×2 (04:42→21:21)
[2019-10-02 05:44] LABS: Hemoglobin 8.3 g/dL (13.0-16.5)
--- NOTE | 2019-10-02 08:03 | NURSING ---
Small amount of serosanguineous drainage noted in the VAC canister. Good seal noted at 75mmHg low continuous suction. next dressing change will be 10/05/19. pt denies needs at this time.
[2019-10-02] MEDS: Aspirin 81 MG TAB.CHEW PO ×2 (09:33→17:30)
[2019-10-02] MEDS: Amiodarone 200 MG Tablet PO (09:33)
[2019-10-02] MEDS: Iron Polysaccharide Complex 150 MG CAPSULE PO (09:33)
[2019-10-02 13:48] VITALS: BP 130/62; PULSE 70; RESP 18; TEMP 36.2; O2SAT 98
[2019-10-03] MEDS: Fluconazole 100 MG Tablet 200 MG PO (05:04)
[2019-10-03] MEDS: Famotidine 20 MG Tablet PO (05:04)
[2019-10-03] MEDS: Pantoprazole Sodium 20 MG Tablet PO (05:04)
[2019-10-03] MEDS: Acetaminophen 500 MG Tablet 1000 MG PO ×3 (05:04→20:59)
[2019-10-03] MEDS: Linezolid 600 MG Tablet PO ×2 (05:04→16:55)
[2019-10-03] MEDS: Meloxicam 7.5 MG Tablet PO ×2 (05:04→16:55)
[2019-10-03] MEDS: Nystatin Powder 15gm Bottle 1 APPLIC TOPICAL ×2 (05:06→20:59)
[2019-10-03] MEDS: Iron Polysaccharide Complex 150 MG CAPSULE PO (09:32)
[2019-10-03] MEDS: Aspirin 81 MG TAB.CHEW PO ×2 (09:32→16:55)
[2019-10-03] MEDS: Amiodarone 200 MG Tablet PO (09:32)
[2019-10-03 13:59] VITALS: BP 133/61; PULSE 76; RESP 20; TEMP 36.4; O2SAT 97
[2019-10-04] MEDS: Senna/Docusate Sodium 1 Tablet PO (04:18)
[2019-10-04] MEDS: Pantoprazole Sodium 20 MG Tablet PO (04:19)
[2019-10-04] MEDS: Acetaminophen 500 MG Tablet 1000 MG PO ×3 (04:19→20:32)
[2019-10-04] MEDS: Famotidine 20 MG Tablet PO (04:19)
[2019-10-04] MEDS: Linezolid 600 MG Tablet PO ×2 (04:20→17:29)
[2019-10-04] MEDS: Fluconazole 100 MG Tablet 200 MG PO (04:20)
[2019-10-04] MEDS: Meloxicam 7.5 MG Tablet PO ×2 (04:20→17:29)
[2019-10-04] MEDS: Nystatin Powder 15gm Bottle 1 APPLIC TOPICAL ×2 (04:21→20:34)
[2019-10-04] MEDS: Iron Polysaccharide Complex 150 MG CAPSULE PO (08:11)
[2019-10-04] MEDS: Aspirin 81 MG TAB.CHEW PO ×2 (08:11→17:29)
[2019-10-04] MEDS: Amiodarone 200 MG Tablet PO (08:11)
[2019-10-04 13:14] VITALS: BP 136/78; PULSE 70; RESP 16; TEMP 36.6; O2SAT 100
[2019-10-05] MEDS: Acetaminophen 500 MG Tablet 1000 MG PO ×3 (04:42→21:09)
[2019-10-05] MEDS: Famotidine 20 MG Tablet PO (04:43)
[2019-10-05] MEDS: Linezolid 600 MG Tablet PO ×2 (04:43→17:11)
[2019-10-05] MEDS: Pantoprazole Sodium 20 MG Tablet PO (04:43)
[2019-10-05] MEDS: Meloxicam 7.5 MG Tablet PO ×2 (04:43→17:11)
[2019-10-05] MEDS: Fluconazole 100 MG Tablet 200 MG PO (04:43)
[2019-10-05] MEDS: Nystatin Powder 15gm Bottle 1 APPLIC TOPICAL ×2 (04:45→21:09)
[2019-10-05 06:39] LABS: Hematocrit 25.8 % (40-54); Hemoglobin 8.4 g/dL (13.0-16.5)
[2019-10-05] MEDS: Amiodarone 200 MG Tablet PO (07:57)
[2019-10-05] MEDS: Iron Polysaccharide Complex 150 MG CAPSULE PO (07:57)
[2019-10-05] MEDS: Aspirin 81 MG TAB.CHEW PO ×2 (07:57→17:11)
[2019-10-05 09:43] VITALS: PULSE 74; RESP 14; O2SAT 97
--- NOTE | 2019-10-05 11:47 | NURSING ---
wound photo: left hip
--- NOTE | 2019-10-05 12:03 | NURSING ---
Spoke with Dr. Collado's office to see whether he still wants the pt to keep the scheduled appointment for Saturday. His office said they will notify us when Dr. Collado has made a decision.
[2019-10-05 15:36] VITALS: BP 116/66; PULSE 77; RESP 18; TEMP 36.1; O2SAT 98
--- NOTE | 2019-10-05 16:50 | CASEMGMT ---
Social Work Reviewed and agreed with social work international controller documentation on this date. Sherrie Curtis, SECURITY STRATEGIST PHYSICIAN ASSISTANT
[2019-10-06] MEDS: Acetaminophen 500 MG Tablet 1000 MG PO ×3 (05:45→22:01)
[2019-10-06] MEDS: Pantoprazole Sodium 20 MG Tablet PO (05:46)
[2019-10-06] MEDS: Linezolid 600 MG Tablet PO ×2 (05:46→17:37)
[2019-10-06] MEDS: Meloxicam 7.5 MG Tablet PO ×2 (05:46→17:36)
[2019-10-06] MEDS: Famotidine 20 MG Tablet PO (05:46)
[2019-10-06] MEDS: Fluconazole 100 MG Tablet 200 MG PO (05:47)
[2019-10-06] MEDS: Nystatin Powder 15gm Bottle 1 APPLIC TOPICAL ×2 (05:48→22:01)
[2019-10-06 07:10] LABS: Absolute Lymphocyte Count 1.09 X10^3/uL (0.83-4.51); Absolute Neutrophil Count 2.3 X10^3/uL (2.0-7.7); Basophil# 0.03 X10^3/uL; Basophil% 0.7 % (0-1); Eosinophil# 0.26 X10^3/uL; Eosinophils% 6.2 % (0-5); Hematocrit 25.4 % (40-54); Hemoglobin 8.2 g/dL (13.0-16.5); Lymphocyte # 1.09 X10^3/ul (4.0); Lymphocyte % 25.9 % (19-41); Mean Corp Hgb Conc 32.3 g/dL (32-36); Mean Corpuscular Hgb 30.4 pg (27.0-32.0); Mean Corpuscular Volume 94.1 fL (80-94); Mean Platelet Vol. 8.3 fl (6.2-12.0); Monocyte# 0.53 X10^3/uL; Monocyte% 12.6 % (0-10); NRBC Flagged by Analyzer 0 % (0-5); Neutrophil # 2.28 X10^3/uL (2.7-7.7); Neutrophil % 54.1 % (47-70); Platelet Count 188 K/mm3 (150-450); RBC Distribution Width CV 14.8 % (11.6-14.6); RBC Distribution Width SD 49.4 fl (35.1-43.9); White Blood Count 4.2 K/mm3 (4.4-11.0)
[2019-10-06 07:34] LABS: Anion Gap 7 (5-15); BUN 25 mg/dL (7-18); BUN/Creat Ratio 23.6 RATIO (10-20); Calcium,Total 8.7 mg/dL (8.5-10.1); Chloride 104 mmol/L (98-107); Creatinine, Serum 1.06 mg/dL (0.70-1.30); EST Glomerular Filtration Rate 71 mL/min (>60); Est Glom Filt Rate - Afr Amer 86 mL/min (>60); Estimated Creatinine Clearance 61.39 ml/min; Glucose 93 mg/dL (74-106); Potassium 4.8 mmol/L (3.5-5.1); Sodium Level 136 mmol/L (136-145)
[2019-10-06] MEDS: Iron Polysaccharide Complex 150 MG CAPSULE PO (08:09)
[2019-10-06] MEDS: Amiodarone 200 MG Tablet PO (08:09)
[2019-10-06] MEDS: Aspirin 81 MG TAB.CHEW PO ×2 (08:09→17:37)
[2019-10-06] MEDS: Senna/Docusate Sodium 1 Tablet PO (08:10)
[2019-10-06 13:54] VITALS: BP 135/68; PULSE 69; RESP 18; TEMP 36.9; O2SAT 98
[2019-10-06 22:11] VITALS: RESP 18
[2019-10-07] MEDS: Fluconazole 100 MG Tablet 200 MG PO (05:47)
[2019-10-07] MEDS: Acetaminophen 500 MG Tablet 1000 MG PO ×3 (05:47→21:08)
[2019-10-07] MEDS: Famotidine 20 MG Tablet PO (05:47)
[2019-10-07] MEDS: Meloxicam 7.5 MG Tablet PO ×2 (05:47→17:25)
[2019-10-07] MEDS: Nystatin Powder 15gm Bottle 1 APPLIC TOPICAL ×2 (05:47→21:09)
[2019-10-07] MEDS: Pantoprazole Sodium 20 MG Tablet PO (05:47)
[2019-10-07] MEDS: Linezolid 600 MG Tablet PO ×2 (05:47→17:25)
[2019-10-07] MEDS: Aspirin 81 MG TAB.CHEW PO ×2 (08:07→17:25)
[2019-10-07] MEDS: Iron Polysaccharide Complex 150 MG CAPSULE PO (08:07)
[2019-10-07] MEDS: Amiodarone 200 MG Tablet PO (08:07)
[2019-10-07 09:38] VITALS: PULSE 77; RESP 18; O2SAT 97
--- NOTE | 2019-10-07 11:23 | CASEMGMT ---
Social Work IDT met with patient and via conference call for care plan meeting. Discussed patient's progress in therapy. Pt is min assist for bed mobility, SBA sit to stand and transfers with FWW, walking 100 ft with FWW CGA, completed 1 curb step with FWW at CGA. Pt is set up for UE bathing, min for UE dressing, mod for LE bathing, max for LE dressing. Pt continues to be independent with all activity needs, regular diet, good appetite. Pt has wound vac and will most likely DC home with vac. Pt sleeps in recliner lift chair at home and has handicap accessible home, with ramp to enter. Explained insurance update 10/05 and continued stay is not guaranteed. Pt's plan is to DC home when insurance issues DC date with [facility], no DME needs. Will continue to follow. JING MadridW
--- NOTE | 2019-10-07 11:34 | CASEMGMT ---
Social Work Met with pt to discuss DC plans. Informed pt that insurance set DC date for 10/09. Pt agreeable to DC date and requesting to restart services with [facility]-PT/OT/SN-referral made. Pt will DC with wound vac. No DME needs Plan: DC 10/09, [facility]-PT/OT/SN, no DME needs Alicja Landis, social work marketing intern Sherrie Curtis, SURVEY RESEARCH TEACHER REVIEW ASSISTANT
[2019-10-07 13:49] VITALS: BP 107/53; PULSE 76; RESP 18; TEMP 36.6; O2SAT 97
--- NOTE | 2019-10-07 16:06 | CASEMGMT ---
Social Work Reviewed and agreed with social work internal medicine veterinary technician documentation on this date. Sherrie Curtis, FLUE TILE PRESS OPERATOR JOY OPERATOR
--- NOTE | 2019-10-07 21:15 | DCINST_ITS ---
You will use the following diet at home:: No restrictions, Regular Your food should be the consistency of: Regular Your liquids should be the consistency of: Regular/Thin Discharge Activity: Return to Normal Activity, May Shower, Use Walker Weight Bearing Status: Weight bearing as tolerated Call your doctor if you observe: Fever of 101 or Higher, Inability to urinate, Inability to have a bowel movement, Shortness of breath, Chest pain, Uncontrolled pain Allergies/Adverse Reactions: Allergies apple Allergy (Verified 09/23/19 09:09) Rash Penicillins [PCN] Allergy (Verified 09/23/19 09:09) Rash Medications to take at Discharge Nystatin Powder [Mycostatin Powder] 1 applic TOPICAL 0600,2200 06/24/19 Acetaminophen [Tylenol] 1,000 mg PO Q8 09/28/19 Amiodarone HCl 200 mg PO DAILY@0800 #30 tab 10/07/19 Aspirin [Aspirin, Baby] 81 mg PO BIDCM #30 tab.chew 10/07/19 Famotidine [Pepcid] 20 mg PO DAILY #30 tab 10/07/19 Fluconazole [Diflucan] 200 mg PO DAILY #3 tab 10/07/19 Iron Polysaccharide Complex [Ferrex 150] 150 mg PO DAILYCM #30 cap 10/07/19 Linezolid [Zyvox] 600 mg PO BID #6 tab 10/07/19 Meloxicam [Mobic] 7.5 mg PO BID #60 tab 10/07/19 Pantoprazole Sodium [Protonix] 20 mg PO DAILY #30 tab 10/07/19 Polyethylene Glycol 3350 [Miralax] 17 gm PO DAILY PRN PRN #30 packet 10/07/19 The following prescriptions were given: Amiodarone HCl 200 mg PO DAILY@0800 #30 tab Transmission Status: Received by [facility] Aspirin [Aspirin, Baby] 81 mg PO BIDCM #30 tab.chew Transmission Status: Received by [facility] Fluconazole [Diflucan] 200 mg PO DAILY #3 tab Transmission Status: Received by [facility] Iron Polysaccharide Complex [Ferrex 150] 150 mg PO DAILYCM #30 cap Transmission Status: Received by [facility] Polyethylene Glycol 3350 [Miralax] 17 gm PO DAILY PRN PRN #30 packet PRN Reason: Constipation Transmission Status: Received by [facility] Meloxicam [Mobic] 7.5 mg PO BID #60 tab Transmission Status: Received by [facility] Famotidine [Pepcid] 20 mg PO DAILY #30 tab Transmission Status: Received by [facility] Pantoprazole Sodium [Protonix] 20 mg PO DAILY #30 tab Transmission Status: Received by [facility] Linezolid [Zyvox] 600 mg PO BID #6 tab Transmission Status: Received by [facility] Primary Care Physician: Christos Golden [Primary Care Provider] - Please follow up with your Primary Care Physician in: 1 week. Test Results: Test results from this visit will be discussed in further detail at your follow- up appointment, if applicable. Please Follow Up With: Hugh Collado MD When: As scheduled. Please Follow Up With: Chantel Sher MD (PCP) Proposed Discharge Date: 10/10/19
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
[2019-10-08] MEDS: Pantoprazole Sodium 20 MG Tablet PO (06:07)
[2019-10-08] MEDS: Acetaminophen 500 MG Tablet 1000 MG PO ×3 (06:07→21:27)
[2019-10-08] MEDS: Nystatin Powder 15gm Bottle 1 APPLIC TOPICAL ×2 (06:07→21:27)
[2019-10-08] MEDS: Fluconazole 100 MG Tablet 200 MG PO (06:08)
[2019-10-08] MEDS: Linezolid 600 MG Tablet PO ×2 (06:08→16:56)
[2019-10-08] MEDS: Famotidine 20 MG Tablet PO (06:08)
[2019-10-08] MEDS: Meloxicam 7.5 MG Tablet PO ×2 (06:08→16:56)
[2019-10-08] MEDS: Iron Polysaccharide Complex 150 MG CAPSULE PO (08:07)
[2019-10-08] MEDS: Amiodarone 200 MG Tablet PO (08:07)
[2019-10-08] MEDS: Aspirin 81 MG TAB.CHEW PO ×2 (08:07→16:56)
[2019-10-08] MEDS: Senna/Docusate Sodium 1 Tablet PO (08:08)
[2019-10-08 13:46] VITALS: BP 116/44; PULSE 72; RESP 18; TEMP 36.4; O2SAT 97
--- NOTE | 2019-10-08 13:46 | MDS.RN ---
Information for the mds was obtained from review of the clinical record, interview of resident, staff, and direct observation of resident's care.
--- NOTE | 2019-10-08 15:53 | CHAPLAIN ---
a jie-sly bowen wish you the best kind of visit
[2019-10-09] MEDS: Fluconazole 100 MG Tablet 200 MG PO (06:40)
[2019-10-09] MEDS: Acetaminophen 500 MG Tablet 1000 MG PO ×3 (06:41→20:44)
[2019-10-09] MEDS: Meloxicam 7.5 MG Tablet PO ×2 (06:41→16:15)
[2019-10-09] MEDS: Famotidine 20 MG Tablet PO (06:41)
[2019-10-09] MEDS: Pantoprazole Sodium 20 MG Tablet PO (06:41)
[2019-10-09] MEDS: Linezolid 600 MG Tablet PO ×2 (06:42→16:15)
[2019-10-09] MEDS: Nystatin Powder 15gm Bottle 1 APPLIC TOPICAL ×2 (06:43→20:43)
[2019-10-09] MEDS: Iron Polysaccharide Complex 150 MG CAPSULE PO (07:57)
[2019-10-09] MEDS: Amiodarone 200 MG Tablet PO (07:57)
[2019-10-09] MEDS: Aspirin 81 MG TAB.CHEW PO ×2 (07:57→16:15)
--- NOTE | 2019-10-09 08:33 | NURSING ---
Home VAC in room for patient's discharge home tomorrow. Pt signed proof of delivery form. this form as well as the discharge summary was faxed to [facility]. Pt denies questions. nursing to switch to home VAC prior to discharge tomorrow.
[2019-10-09 09:42] VITALS: PULSE 79; RESP 18; O2SAT 98
[2019-10-09 14:19] VITALS: BP 148/66; PULSE 76; RESP 18; TEMP 36.2; O2SAT 98
[2019-10-09 21:16] VITALS: BP 118/57; PULSE 74; RESP 16; TEMP 36.6; O2SAT 99
[2019-10-10] MEDS: Meloxicam 7.5 MG Tablet PO (06:12)
[2019-10-10] MEDS: Pantoprazole Sodium 20 MG Tablet PO (06:12)
[2019-10-10] MEDS: Acetaminophen 500 MG Tablet 1000 MG PO (06:12)
[2019-10-10] MEDS: Famotidine 20 MG Tablet PO (06:12)
[2019-10-10] MEDS: Fluconazole 100 MG Tablet 200 MG PO (06:13)
[2019-10-10] MEDS: Nystatin Powder 15gm Bottle 1 APPLIC TOPICAL (06:13)
[2019-10-10] MEDS: Linezolid 600 MG Tablet PO (06:13)
[2019-10-10] MEDS: Iron Polysaccharide Complex 150 MG CAPSULE PO (08:34)
[2019-10-10] MEDS: Amiodarone 200 MG Tablet PO (08:34)
[2019-10-10] MEDS: Aspirin 81 MG TAB.CHEW PO (08:34)
[2019-10-10 09:07] VITALS: PULSE 74; RESP 16
--- NOTE | 2019-10-12 14:19 | CASEMGMT ---
Social Work Reviewed and agreed with social work internal controls consultant documentation on this date. Sherrie Curtis, [employer] PUBLIC HEALTH WORKER
== END 2019-10-10 10:15 | disposition home health service (06) | DRG 560 ==
PROVIDERS: Admitting Provider Family Medicine Geriatric Medicine; PCP Internal Medicine; Visit Provider Family Medicine Geriatric Medicine
DX: M97.02XD 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, subsequent encounter (principal); I48.20 Chronic atrial fibrillation, unspecified; I48.0 Paroxysmal atrial fibrillation; Z23 Encounter for immunization; T84.52XD Infection and inflammatory reaction due to internal left hip prosthesis, subsequent encounter; D50.9 Iron deficiency anemia, unspecified; K21.9 Gastro-esophageal reflux disease without esophagitis; I10 Essential (primary) hypertension; Z86.718 Personal history of other venous thrombosis and embolism; B35.4 Tinea corporis; Y83.1 Surgical operation with implant of artificial internal device as the cause of abnormal reaction of the patient, or of later complication, without mention of misadventure at the time of the procedure
CPT/HCPCS: 36415; 80048; 85014; 85018; 85025; 97110; 97116; 97162; 97166; 97530; 97535; 97802; 99251; G0009; 90670; G0463

== ENCOUNTER 2019-10-13 11:55 | Inpatient (IN) | payer MEDICARE, SELFPAY ==
[2019-10-13] VITALS (19 sets, daily range): BP systolic 110–150; BP diastolic 65–80; PULSE 53–71; RESP 16–18; TEMP 36.7–37.1; O2SAT 94–100; BMI 30.8
[2019-10-13] MEDS: Lactated Ringers 1,000 ML 999 ML IV (08:39)
[2019-10-13] MEDS: Lactated Ringers 1,000 ML 100 ML IV (08:45)
[2019-10-13 09:20] LABS: Bedside Glucose 109 mg/dL (70-110)
[2019-10-13] MEDS: Gabapentin 600 MG Tablet PO (11:20)
[2019-10-13] MEDS: Acetaminophen 500 MG Tablet 1000 MG PO ×2 (11:20→21:51)
[2019-10-13] MEDS: Lactated Ringers 1,000 ML 125 ML IV ×2 (12:00→18:48)
[2019-10-13] MEDS: Cefazolin 2 GM in 0.9% Normal Saline 100 ML IV (12:41)
[2019-10-13] MEDS: Vancomycin IV 1,000 MG/20 ML Vial 2000 MG OPERA.SITE (13:17)
--- NOTE | 2019-10-13 14:21 | OP.PCM_ITS ---
Report of Operation Date of Procedure: 10/13/19 Pre-Operative Diagnosis: Draining wound left hip Post-Operative Diagnosis: Draining wound left hip Surgery/Procedure Performed:: Irrigation debridement left hip with acetabular liner and femoral head revision. Excision of sinus tract left hip. Complex wound closure multiple layers left hip, 31 cm Description of Surgical Findings:: Stable hip. Upon resection of the sinus tract it was noted that the deep fascia had failed to heal. Based on this we dissected down to the hip and did a modular component exchange. braid maker: Mark Call Type of Anesthesia:: General Anesthesiologist: Charles Alvarado Special Medications: Ancef, 2 g vancomycin powder in the wound Specimen's removed: 3 separate specimens were sent to microbiology. Estimated Blood Loss (mL): 300 Fluids Replaced: 900 mL crystalloid Description of Procedure: 84-year-old male with complex surgical history for periprosthetic fractures with subsequent infection. 3 weeks ago we did a reimplantation. Cultures remained negative. However patient developed a draining sinus at the midportion of his incision. Based on the duration from surgery we elected to proceed with irrigation debridement. After exploring the wound it was noted that went all the way to the joint. Appropriate amount of dissection was made. In the office based on the draining wound I did discuss the patient revision and irrigation and debridement. Patient demonstrated understanding of risks including further wound breakdown, infections, blood loss, DVTs, PEs, nervous damage, infection, the risk of anesthesia include loss of life. Components used: 1. [place] cobalt-chromium 28 mm +4 mm femoral head 2. Roque MDM liner 48 mm, alpha code G 3. Roque X3 insert 48G Procedure: On the date of procedure the patient's L hip was marked in the preoperative area. Patient was then taken back to the operating room where anesthesia assumed control of the C-spine and airway and administered anesthetic. Patient was transferred to the operating table and placed in the lateral decubitus position with the affected hip up. The patient was secured in the bed with the lateral positioners and leg lengths were checked. The L lower extremity was then prepped out in a sterile fashion using chlorhexidine while the surgeon scrubbed. Upon reentering the room the L lower extremity was draped in the standard orthopedic fashion and the incision was marked. A timeout was called and everyone agreed upon the side, the site, the procedure be performed, antibiotics had been held until cultures were taken, and patient's identity. At this time i ncision was made distal incision was made. We ellipsed around the sinus tract and dissected down the sinus tract. Sinus tract was excised. We then extended the incision proximally to the extent that the fascia had not healed. Deep we noted that the fascia had failed to heal and there was a large spread in the fascia. This communicated directly with the joint. At this time we decided we are going to proceed with the head liner exchange. All the previous sutures were removed. The wound was aggressively debrided of any synovium and residual hematoma. Once this was aggressively debrided the hip was dislocated. Bone tamp was used to dislodge the femoral head from the Mcclain taper. We then directed our attention towards the acetabular component where the Mcclain taper was disrupted and the MDM liner was removed. After aggressively debriding the entire joint we carefully debrided back the rounded edges of the fascia and re- created the fascial layers down to bleeding tissue for adequate repair. The wound was then copiously irrigated out with 6 L normal saline under low-pressure lavage and 3 L of normal saline with pulse lavage. Once this was done a 1 minute chlorhexidine lavage was performed. The acetabular liner and femoral head components were opened and assembled. Acetabular liner was impacted into place. Locking mechanism was verified. Femoral head was impacted into place after the trunnion was adequately cleaned and dried. Hip was again reduced. Chlorhexidine solution was again used to lavage the joint for 1 minute. TXA was lavaged to the joint for 1 minute. At this time we began the complex closure of the 31 cm wound. We used retention sutures with Prolene these were placed through the skin and down through the fascia. Once we had placed several of th chela we then used #1 PDS to close the remainder of the fascia. We then used Prolene again to close the deep subcutaneous layer using vertical mattress sutures. Final skin approximation was done with 2-0 Vicryl in interrupted fashion followed by running a 2-0 Vicryl subcuticularly. Based on the patient's multiple history is an extensive scar tissue this was a complex wound closure with multiple layers and took significant amount of time. Once the incision was closed a incisional wound VAC was placed on the wound. Patient was placed in supine position and awakened by anesthesia. They were transferred to the bed and transferred to PACU for recovery. Postoperative plan: We will consult infectious disease for management of any antibiotics. Based on his draining wound patient would likely benefit from a prolonged course of antibiotics. Patient can be weightbearing as tolerated. Posterior hip precautions for 3 months. Aspirin for DVT prophylaxis. We will use the wound VAC for wound management early on and wean from wound VAC as appropriate. Patient will come in the office in 2 weeks for a wound check. He will return in 3 weeks for a wound check and hopefully Prolene suture removal. During the course of the procedure the physician liaison inspection laboratory assistant played a vital role. His intimate knowledge of my steps in the procedure aided in safe and expedient completion of the procedure. The PA played a vital rolls in positioning particularly in obtaining the appropriate positioning of the sacral bump. The PA was also vital in the retraction of soft tissues during the exposure and es pecially the femoral work as this is a vital part of the procedure to prevent complications and fractures. The PA was also vital and protecting soft tissues during times of bony cuts and reaming. He also played a vital role in closure with my direct supervision. The PA was also important during reduction and dislocation of the joint and trials intraoperatively. Grafts/Implants Used: Roque - Complications No intraoperative complications - Admit VTE Documentation VTE Present on Admission: No VTE Mechan Device Prophylaxis: SCD's, Thigh High JOHN Hose VTE Pharm Prophylaxis ordered?: Yes
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
[2019-10-13] MEDS: Ondansetron 4 MG/2 ML Vial IV (17:07)
[2019-10-13] MEDS: 0.9% Saline Lock 10 ML Syringe IV (17:08)
[2019-10-13] MEDS: Cefazolin 1 GM/50 ML BAG IV (20:21)
[2019-10-13] MEDS: Senna/Docusate Sodium 1 Tablet 2 TABLET PO (21:51)
[2019-10-13] MEDS: Linezolid 600 MG Tablet PO (21:52)
[2019-10-14 01:18] VITALS: BMI 30.8
[2019-10-14 03:41] VITALS: BP 108/55; PULSE 67; RESP 18; TEMP 37.2; O2SAT 98
[2019-10-14 04:45] VITALS: BMI 30.8
[2019-10-14 05:20] LABS: Hematocrit 21.7 % (40-54); Hemoglobin 7.1 g/dL (13.0-16.5); Mean Corp Hgb Conc 32.7 g/dL (32-36); Mean Corpuscular Hgb 30.6 pg (27.0-32.0); Mean Corpuscular Volume 93.5 fL (80-94); Mean Platelet Vol. 9.4 fl (6.2-12.0); Platelet Count 224 K/mm3 (150-450); RBC Distribution Width CV 14.6 % (11.6-14.6); RBC Distribution Width SD 48.6 fl (35.1-43.9); Red Blood Count 2.32 M/mm3 (4.6-6.2); White Blood Count 5.5 K/mm3 (4.4-11.0)
[2019-10-14] MEDS: Cefazolin 1 GM/50 ML BAG IV (05:22)
[2019-10-14] MEDS: Acetaminophen 500 MG Tablet 1000 MG PO ×3 (05:26→22:58)
[2019-10-14 05:45] LABS: Anion Gap 7 (5-15); BUN 16 mg/dL (7-18); BUN/Creat Ratio 17.9 RATIO (10-20); Calcium,Total 8.7 mg/dL (8.5-10.1); Chloride 105 mmol/L (98-107); Creatinine, Serum 0.89 mg/dL (0.70-1.30); EST Glomerular Filtration Rate 87 mL/min (>60); Est Glom Filt Rate - Afr Amer 105 mL/min (>60); Estimated Creatinine Clearance 73.12 ml/min; Glucose 131 mg/dL (74-106); Potassium 5.1 mmol/L (3.5-5.1); Sodium Level 137 mmol/L (136-145)
[2019-10-14 08:06] VITALS: BP 119/56; PULSE 72; RESP 16; TEMP 36.3; O2SAT 98
[2019-10-14] MEDS: Senna/Docusate Sodium 1 Tablet 2 TABLET PO ×2 (08:11→22:58)
[2019-10-14] MEDS: Iron Polysaccharide Complex 150 MG CAPSULE PO (08:11)
[2019-10-14] MEDS: Linezolid 600 MG Tablet PO ×2 (08:12→22:59)
[2019-10-14] MEDS: Pantoprazole Sodium 20 MG Tablet PO (08:12)
[2019-10-14] MEDS: Famotidine 20 MG Tablet PO (08:12)
[2019-10-14] MEDS: Aspirin 81 MG TAB.CHEW PO ×2 (08:12→16:26)
[2019-10-14] MEDS: Amiodarone 200 MG Tablet PO (08:12)
[2019-10-14] MEDS: Fluconazole 100 MG Tablet 200 MG PO (08:13)
--- NOTE | 2019-10-14 08:14 | NURSING ---
In to assess wound VAC dressing to the left hip. dressing intact with good seal noted at 75mmHg low continuous suction. pt aware he will need to have drop off the charging cord for the home VAC prior to discharge home later in the week.
[2019-10-14] MEDS: Ensure Surgery 237 ML LIQUID PO ×3 (08:17→16:25)
--- NOTE | 2019-10-14 09:08 | PCM.PN.ORT ---
Subjective: The patient was sitting in bed upon examination. Patient denies any chest pain, shortness of breath, dizziness, lightheadedness, nausea or vomiting, or calf pain. Pain is controlled on medications. No adverse overnight events. Overall patient is doing well and his pain is well controlled. Patient did have a drop in hemoglobin but currently is asymptomatic with no dizziness, lightheadedness, or feeling of passing out. Patient's previous surgery was on September 23, 2019 in which he underwent revision total hip arthroplasty with conversion from previous antibiotic spacer. Patient had continued drainage with use of wound VAC. Objective: Vital signs stable and afebrile. Blood pressure currently 119/56 and overnight dropped to 108/55. He had no tachycardia. Patient is able to plantarflex and dorsiflex actively. Sensation is intact to light touch to saphenous, sural, superficial and deep peroneal, and tibial distribution. Dressing is clean dry and intact. Wound VAC in place with minimal output in canister. Negative Homans bilaterally, negative signs and symptoms of DVT. - Physical Exam Vitals/I&O's: Vital Signs Temp Pulse Resp BP Pulse Ox 97.4 F L 72 16 119/56 L 98 10/14/19 08:06 10/14/19 08:06 10/14/19 08:06 10/14/19 08:06 10/14/19 08:06 Oxygen Flow Rate (L/min) 6 Oxygen Delivery Method Room Air Weight: 108.862 kg Body Mass Index (BMI) 30.8 Intake and Output for Last 24 Hours 10/12/19 10/13/19 10/14/19 23:59 23:59 23:59 Intake Total 3480 / 3480 1287.5 / 1287.5 Output Total 750 / 750 750 / 750 Balance 2730 / 2730 537.5 / 537.5 General: Alert, Oriented x3, Cooperative, No apparent distress Laboratory Results 10/13/19 08:23: POC Glucose 109 10/14/19 04:53: WBC 5.5, RBC 2.32 L, Hgb 7.1 L, Hct 21.7 L, MCV 93.5, MCH 30.6, MCHC 32.7, RDW Std Deviation 48.6 H, RDW Coeff of Morenita 14.6, Plt Count 224, MPV 9.4 10/14/19 04:53: Sodium 137, Potassium 5.1, Chloride 105, Carbon Dioxide 25.0, Anion Gap 7, BUN 16, Creatinine 0.89, Estim Creat Clear Calc 73.12, Est GFR (MDRD) Af Amer 105, Est GFR (MDRD) Non-Af 87, BUN/Creatinine Ratio 17.9, Glucose 131 H, Calcium 8.7 Current Medications Acetaminophen (Tylenol) 1,000 mg PO Q8 [facility] Last Admin: 10/14/19 05:26 Dose: 1,000 mg Documented by: Amiodarone HCl (Cordarone) 200 mg PO DAILY@0800 [facility] Last Admin: 10/14/19 08:12 Dose: 200 mg Documented by: Aspirin (Aspirin, Baby) 81 mg PO BIDCM [facility] Last Admin: 10/14/19 08:12 Dose: 81 mg Documented by: Enteral Nutritional Formula (Ensure Surgery) 237 ml PO TIDCM [facility] Last Admin: 10/14/19 08:17 Dose: 237 ml Documented by: Famotidine (Pepcid) 20 mg PO DAILY [facility] Last Admin: 10/14/19 08:12 Dose: 20 mg Documented by: Fluconazole (Diflucan) 200 mg PO DAILY [facility] Last Admin: 10/14/19 08:13 Dose: 200 mg Documented by: Lactated Ringer's () 1,000 mls @ 125 mls/hr IV .Q8H [facility] Last Infusion: 10/14/19 01:25 Dose: 15 mls/hr Documented by: Insulin Human Lispro (Humalog Kwikpen ([facility])) 1 - 6 unit SC Q4H PRN PRN; Protocol PRN Reason: BG>/= 180, SEE PROTOCOL Ketorolac Tromethamine (Toradol ([facility])) 15 mg IV Q6H PRN PRN PRN Reason: Pain Score 1-5/10 Stop: 10/15/19 12:01 Linezolid (Zyvox) 600 mg PO BID [facility] Last Admin: 10/14/19 08:12 Dose: 600 mg Documented by: Morphine Sulfate () 2 - 4 mg IV Q2H PRN PRN PRN Reason: Pain Score 4-10/10 Ondansetron HCl (Zofran) 4 mg IV Q8H PRN PRN PRN Reason: NAUSEA Last Admin: 10/13/19 17:07 Dose: 4 mg Documented by: Oxycodone HCl (Oxyir) 5 mg PO Q4H PRN PRN PRN Reason: Pain Score 6-10/10 Pantoprazole Sodium (Protonix) 20 mg PO DAILY [facility] Last Admin: 10/14/19 08:12 Dose: 20 mg Documented by: Polyethylene Glycol (Miralax) 17 gm PO DAILY PRN PRN PRN Reason: Constipation Polysaccharide Iron Complex (Ferrex 150) 150 mg PO DAILYCM [facility] Last Admin: 10/14/19 08:11 Dose: 150 mg Documented by: Promethazine HCl (Phenergan) 12.5 mg IM Q6H PRN PRN; Protocol PRN Reason: NAUSEA/VOMITING Senna/Docusate Sodium (Senokot-S, Herminia-Colace) 2 tablet PO BID [facility] Last Admin: 10/14/19 08:11 Dose: 2 tablet Documented by: Sodium Chloride () 10 - 40 ml IV UD PRN PRN Reason: SALINE FLUSH Last Admin: 10/13/19 17:08 Dose: 10 ml Documented by: Medical Necessity - Tobacco Use Smoking Status: Never smoker Assessment/Plan All Active Problems Debility (Acute) Hip hematoma, left (Resolved) Hip dislocation, left (Resolved) Toe pain, left (Resolved) Toe pain, right (Resolved) Sternal fracture (Resolved) Multiple rib fractures (Resolved) Lumbar transverse process fracture (Resolved) Sacral fracture, closed (Resolved) Fracture of left inferior pubic ramus (Resolved) Fracture of ischial tuberosity (Resolved) Open fracture of right proximal tibia (Resolved) Open fracture of right distal tibia (Resolved) Open fracture of right humerus (Resolved) Right scapula fracture (Resolved) Closed fracture of right distal femur (Resolved) Left femoral shaft fracture (Resolved) Small bowel obstruction (Resolved) Pneumocytosis (Resolved) Metacarpal bone fracture (Resolved) Fracture, metacarpal shaft (Resolved) CMC arthritis, thumb, 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 S/P irrigation debridement left hip with acetabular liner and femoral head revision with excision of sinus tract left hip. Complex wound closure multiple liters left hip 31 cm POD #1 2. Continue Pain Medications: Tylenol and oxycodone 3. DVT Prophylaxis: Aspirin 81 mg twice daily for 4 weeks postoperatively 4. PT/OT: Weightbearing as tolerated with walker. Strict posterior hip dislocation precautions for 3 months postoperatively 5. H & H: 7.1/21.7, asymptomatic. Last hemoglobin on October 06, 2019 was 8.2 6. Encouraged Incentive Spirometry 7. Wound VAC: Consult placed to wound VAC nurse. We will continue with wound VAC postoperatively with patient having home unit. They will bring in electrical sign servicer. 8. Continue postoperative medical management per medicine: Appreciate assistance with patient's comorbidities. We will continue to follow hemoglobin. 9. Consult infectious disease: Cultures currently pending. Appreciate input for antibiotics postoperatively while following cultures. 10. Disposition: Will need to continue to follow patient's hemoglobin and cultures. Plan will be for possible discharge home when medically ready.
--- NOTE | 2019-10-14 10:10 | CASEMGMT ---
DERICK MONROY Face to Face with patient for initial transition planning/care coordination assessment. DERICK MONROY introduced self and role at [facility]. Patient sitting in chair, alert and oriented. Patient willing to participate in assessment and is able to answer all questions appropriately. Care providers, pharmacy, and demographics verified. Patient wishes to discharge home if possible with resumption of HHC with [facility]. Patient may require IV ATBs at discharge. Patient to discuss with if patient requires IV ATBs at discharge if she would be willing to assist with IV ATBs or if he should go to TCU. Patient states he has no further needs or concerns at this time. CM to follow for discharge planning needs that may arise. PCP: Chantel Specialists: Francisco Collado Pharmacy: [facility] Insurance: [employer] Prescription Benefit: yes Living Will/HPOA: yes, daughter Katalina Hernandez LNOK: , daughter Living Arrangements: Patient lives with in 2 story home with bed and bath on first floor. Ramp to enter the home. Patient states assists with ADLs. Transportation: DME/HHC: Patient states that he has shower chair, raised toilet, cane, walker, grab bars, wheelchair, lift chair. Patient is current with [facility] for SN, PT,OT. Patient has recently been to TCU. Disposition Plan: Patient wishing to go home with resumption of HHC. Cultures pending, possible IV ATBs at discharge. Charline TATUM, RN, CM
--- NOTE | 2019-10-14 10:23 | PCM.PROGNOTE ---
<Melanie Hinojosa - Last Filed: 10/14/19 10:35> Subjective: Patient seen and examined. Reports hip pain with movement, otherwise comfortable. States he will not take anything but Tylenol for pain. Denies fever, chills. Denies chest pain, shortness of breath. - Physical Exam Vitals/I&O's: Vital Signs Temp Pulse Resp BP Pulse Ox 97.4 F L 72 16 119/56 L 98 10/14/19 08:06 10/14/19 08:06 10/14/19 08:06 10/14/19 08:06 10/14/19 08:06 Oxygen Flow Rate (L/min) 6 Oxygen Delivery Method Room Air Weight: 240 lb Body Mass Index (BMI) 30.8 Intake and Output for Last 24 Hours 10/12/19 10/13/19 10/14/19 23:59 23:59 23:59 Intake Total 3480 / 3480 1287.5 / 1287.5 Output Total 750 / 750 750 / 750 Balance 2730 / 2730 537.5 / 537.5 General: Alert, Oriented x3, Cooperative HEENT: Atraumatic, PERRLA, EOMI, Normocephalic Neck: Supple, No JVD, Negative Carotid Bruits Lungs: Clear to auscultation, Normal air movement Cardiovascular: Regular rate, Regular Rhythm, Normal S1, Normal S2, No murmurs Abdomen: Bowel Sounds Present, Soft, Non Tender, Non-Distended Extremities: No clubbing, No cyanosis, No edema, Capillary Refill Less than 3 Seconds Skin: No rashes, No breakdown, - - Left hip wound VAC intact Musculoskeletal: No Tenderness to Palpation of Joints or Extremities Neurological: Cranial nerves II-XII grossly intact, Neuro grossly intact Psych/Mental Status: Normal Affect, Appropriate Microbiology Past 72 Hours 10/13/19 12:40 Tissue - Hip Gram Stain - Final 10/13/19 12:40 Tissue - Hip Wound Culture - Preliminary No growth-Final to follow 10/13/19 12:40 Tissue - Hip Gram Stain - Final 10/13/19 12:40 Tissue - Hip Wound Culture - Preliminary No growth-Final to follow 10/13/19 12:40 Tissue - Hip Gram Stain - Final 10/13/19 12:40 Tissue - Hip Wound Culture - Preliminary No growth-Final to follow Laboratory Results 10/14/19 04:53: WBC 5.5, RBC 2.32 L, Hgb 7.1 L, Hct 21.7 L, MCV 93.5, MCH 30.6, MCHC 32.7, RDW Std Deviation 48.6 H, RDW Coeff of Morenita 14.6, Plt Count 224, MPV 9.4 10/14/19 04:53: Sodium 137, Potassium 5.1, Chloride 105, Carbon Dioxide 25.0, Anion Gap 7, BUN 16, Creatinine 0.89, Estim Creat Clear Calc 73.12, Est GFR (MDRD) Af Amer 105, Est GFR (MDRD) Non-Af 87, BUN/Creatinine Ratio 17.9, Glucose 131 H, Calcium 8.7 Current Medications Acetaminophen (Tylenol) 1,000 mg PO Q8 [facility] Last Admin: 10/14/19 05:26 Dose: 1,000 mg Documented by: Amiodarone HCl (Cordarone) 200 mg PO DAILY@0800 [facility] Last Admin: 10/14/19 08:12 Dose: 200 mg Documented by: [facility], [facility]) [facility] Last Admin: 10/14/19 08:12 Dose: 81 mg Documented by: Enteral Nutritional Formula (Ensure Surgery) 237 ml PO TIDCM [facility] Last Admin: 10/14/19 08:17 Dose: 237 ml Documented by: Famotidine (Pepcid) 20 mg PO DAILY [facility] Last Admin: 10/14/19 08:12 Dose: 20 mg Documented by: Fluconazole (Diflucan) 200 mg PO DAILY [facility] Last Admin: 10/14/19 08:13 Dose: 200 mg Documented by: Lactated Ringer's () 1,000 mls @ 125 mls/hr IV .Q8H [facility] Last Infusion: 10/14/19 01:25 Dose: 15 mls/hr Documented by: Insulin Human Lispro (Humalog Kwikpen ([facility])) 1 - 6 unit SC Q4H PRN PRN; Protocol PRN Reason: BG>/= 180, SEE PROTOCOL Ketorolac Tromethamine (Toradol (Bk)) 15 mg IV Q6H PRN PRN PRN Reason: Pain Score 1-5/10 Stop: 10/15/19 12:01 Linezolid (Zyvox) 600 mg PO BID [facility] Last Admin: 10/14/19 08:12 Dose: 600 mg Documented by: Morphine Sulfate () 2 - 4 mg IV Q2H PRN PRN PRN Reason: Pain Score 4-10/10 Ondansetron HCl (Zofran) 4 mg IV Q8H PRN PRN PRN Reason: NAUSEA Last Admin: 10/13/19 17:07 Dose: 4 mg Documented by: Oxycodone HCl (Oxyir) 5 mg PO Q4H PRN PRN PRN Reason: Pain Score 6-10/10 Pantoprazole Sodium (Protonix) 20 mg PO DAILY [facility] Last Admin: 10/14/19 08:12 Dose: 20 mg Documented by: Polyethylene Glycol (Miralax) 17 gm PO DAILY PRN PRN PRN Reason: Constipation Polysaccharide Iron Complex (Ferrex 150) 150 mg PO DAILYCM [facility] Last Admin: 10/14/19 08:11 Dose: 150 mg Documented by: Promethazine HCl (Phenergan) 12.5 mg IM Q6H PRN PRN; Protocol PRN Reason: NAUSEA/VOMITING Senna/Docusate Sodium (Senokot-S, Herminia-Colace) 2 tablet PO BID [facility] Last Admin: 10/14/19 08:11 Dose: 2 tablet Documented by: Sodium Chloride () 10 - 40 ml IV UD PRN PRN Reason: SALINE FLUSH Last Admin: 10/13/19 17:08 Dose: 10 ml Documented by: Medical Necessity - Tobacco Use Smoking Status: Never smoker Assessment/Plan All Active Problems Debility (Acute) Hip hematoma, left (Resolved) Hip dislocation, left (Resolved) Toe pain, left (Resolved) Toe pain, right (Resolved) Sternal fracture (Resolved) Multiple rib fractures (Resolved) Lumbar transverse process fracture (Resolved) Sacral fracture, closed (Resolved) Fracture of left inferior pubic ramus (Resolved) Fracture of ischial tuberosity (Resolved) Open fracture of right proximal tibia (Resolved) Open fracture of right distal tibia (Resolved) Open fracture of right humerus (Resolved) Right scapula fracture (Resolved) Closed fracture of right distal femur (Resolved) Left femoral shaft fracture (Resolved) Small bowel obstruction (Resolved) Pneumocytosis (Resolved) Metacarpal bone fracture (Resolved) Fracture, metacarpal shaft (Resolved) CMC arthritis, thumb, 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 Postop day 1 irrigation and debridement left hip with acetabular liner and femoral head revision and excision of sinus tract left hip. Management per ortho. Recent revision left total hip replacement, conversion from antibiotic spacer to total replacement 09/23/[address] Collado. Recently seen by infectious disease, recommended course of Linezolid. On fluconazole as well. Repeat cultures pending. ID consulted. 2. Paroxysmal atrial fibrillation-rate controlled. On amiodarone. 3. 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 4. Acute on chronic anemia, iron deficiency anemia-continue iron supplementation. Hemoglobin 7.1 this morning. Trend CBC. Transfuse for hemoglobin less than 7. 5. GERD-continue famotidine regimen. DVT prophylaxis- aspirin BID per ortho Thank for allowing me to participate in the care of this patient. Hospitalist medicine services will sign off at this time. Please contact with any concerns. This patient was seen by ELADIO Underwood under the supervision of Dr. Mckeon. <Julio Mckeon F - Last Filed: 10/14/19 12:39> - Physical Exam Vitals/I&O's: Vital Signs Temp Pulse Resp BP Pulse Ox 97.9 F 74 16 96/44 L 96 10/14/19 11:16 10/14/19 11:16 10/14/19 11:16 10/14/19 11:16 10/14/19 11:16 Oxygen Flow Rate (L/min) 6 Oxygen Delivery Method Room Air Weight: 240 lb Body Mass Index (BMI) 30.8 Intake and Output for Last 24 Hours 10/12/19 10/13/19 10/14/19 23:59 23:59 23:59 Intake Total 3480 / 3480 1436.0 / 1436.0 Output Total 750 / 750 750 / 750 Balance 2730 / 2730 686.0 / 686.0 Microbiology Past 72 Hours 10/13/19 12:40 Tissue - Hip Gram Stain - Final 10/13/19 12:40 Tissue - Hip Wound Culture - Preliminary No growth-Final to follow 10/13/19 12:40 Tissue - Hip Gram Stain - Final 10/13/19 12:40 Tissue - Hip Wound Culture - Preliminary No growth-Final to follow 10/13/19 12:40 Tissue - Hip Gram Stain - Final 10/13/19 12:40 Tissue - Hip Wound Culture - Preliminary No growth-Final to follow Laboratory Results 10/14/19 04:53: WBC 5.5, RBC 2.32 L, Hgb 7.1 L, Hct 21.7 L, MCV 93.5, MCH 30.6, MCHC 32.7, RDW Std Deviation 48.6 H, RDW Coeff of Morenita 14.6, Plt Count 224, MPV 9.4 10/14/19 04:53: Sodium 137, Potassium 5.1, Chloride 105, Carbon Dioxide 25.0, Anion Gap 7, BUN 16, Creatinine 0.89, Estim Creat Clear Calc 73.12, Est GFR (MDRD) Af Amer 105, Est GFR (MDRD) Non-Af 87, BUN/Creatinine Ratio 17.9, Glucose 131 H, Calcium 8.7 Current Medications Acetaminophen (Tylenol) 1,000 mg PO Q8 [facility] Last Admin: 10/14/19 05:26 Dose: 1,000 mg Documented by: Amiodarone HCl (Cordarone) 200 mg PO DAILY@0800 [facility] Last Admin: 10/14/19 08:12 Dose: 200 mg Documented by: Aspirin (Aspirin, Baby) 81 mg PO BIDCM [facility] Last Admin: 10/14/19 08:12 Dose: 81 mg Documented by: Enteral Nutritional Formula (Ensure Surgery) 237 ml PO TIDCM [facility] Last Admin: 10/14/19 11:29 Dose: 237 ml Documented by: Famotidine (Pepcid) 20 mg PO DAILY [facility] Last Admin: 10/14/19 08:12 Dose: 20 mg Documented by: Fluconazole (Diflucan) 200 mg PO DAILY [facility] Last Admin: 10/14/19 08:13 Dose: 200 mg Documented by: Insulin Human Lispro (Humalog Kwikpen ([facility])) 1 - 6 unit SC Q4H PRN PRN; Protocol PRN Reason: BG>/= 180, SEE PROTOCOL Ketorolac Tromethamine (Toradol ([facility])) 15 mg IV Q6H PRN PRN PRN Reason: Pain Score 1-5/10 Stop: 10/15/19 12:01 Linezolid (Zyvox) 600 mg PO BID [facility] Last Admin: 10/14/19 08:12 Dose: 600 mg Documented by: Morphine Sulfate () 2 - 4 mg IV Q2H PRN PRN PRN Reason: Pain Score 4-10/10 Ondansetron HCl (Zofran) 4 mg IV Q8H PRN PRN PRN Reason: NAUSEA Last Admin: 10/13/19 17:07 Dose: 4 mg Documented by: Oxycodone HCl (Oxyir) 5 mg PO Q4H PRN PRN PRN Reason: Pain Score 6-10/10 Pantoprazole Sodium (Protonix) 20 mg PO DAILY [facility] Last Admin: 10/14/19 08:12 Dose: 20 mg Documented by: Polyethylene Glycol (Miralax) 17 gm PO DAILY PRN PRN PRN Reason: Constipation Polysaccharide Iron Complex (Ferrex 150) 150 mg PO DAILYCM [facility] Last Admin: 10/14/19 08:11 Dose: 150 mg Documented by: Promethazine HCl (Phenergan) 12.5 mg IM Q6H PRN PRN; Protocol PRN Reason: NAUSEA/VOMITING Senna/Docusate Sodium (Senokot-S, Herminia-Colace) 2 tablet PO BID [facility] Last Admin: 10/14/19 08:11 Dose: 2 tablet Documented by: Sodium Chloride () 10 - 40 ml IV UD PRN PRN Reason: SALINE FLUSH Last Admin: 10/13/19 17:08 Dose: 10 ml Documented by: Addendum: Dr. Mckeon I personally examined the patient and reviewed the chart. I agree with the above. 84-year-old male presents with a draining left hip wound, he is status post irrigation debridement of his left hip with an acetabular liner and femoral head revision. Infectious diseases consulted to assist with antibiotic management and selection, he is on Zyvox, and Diflucan. Current cultures are negative, he did have previous wound cultures from the hip with staph epidermidis, VRE, and presumptive Nikki albicans back in May 2019, so we will continue to cover these organisms and wait for new cultures. Patient has history of A. fib, that he states he never feels and was diagnosed several years ago and since then he has not really paid attention to it. He is on a stable dose of amiodarone and has had no issues with his rhythm management. We will continue to monitor peripherally. Inpatient E&M: [id number] [facility] L2
[2019-10-14 11:16] VITALS: BP 96/44; PULSE 74; RESP 16; TEMP 36.6; O2SAT 96
[2019-10-14 14:29] VITALS: BP 103/51; PULSE 76; RESP 16; TEMP 36.4; O2SAT 98
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
[2019-10-14 20:20] VITALS: BP 116/59; PULSE 80; RESP 16; TEMP 36.7; O2SAT 96
[2019-10-15] VITALS (9 sets, daily range): BP systolic 94–144; BP diastolic 44–78; PULSE 73–80; RESP 16–18; TEMP 36.6–36.8; O2SAT 93–96
[2019-10-15] MEDS: Acetaminophen 500 MG Tablet 1000 MG PO ×3 (06:35→21:26)
[2019-10-15] MEDS: Famotidine 20 MG Tablet PO (09:15)
[2019-10-15] MEDS: Iron Polysaccharide Complex 150 MG CAPSULE PO (09:15)
[2019-10-15] MEDS: Fluconazole 100 MG Tablet 200 MG PO (09:15)
[2019-10-15] MEDS: Linezolid 600 MG Tablet PO ×2 (09:15→21:27)
[2019-10-15] MEDS: Senna/Docusate Sodium 1 Tablet 2 TABLET PO ×2 (09:15→21:27)
[2019-10-15] MEDS: Ensure Surgery 237 ML LIQUID PO ×3 (09:15→16:46)
[2019-10-15] MEDS: Pantoprazole Sodium 20 MG Tablet PO (09:15)
[2019-10-15] MEDS: Aspirin 81 MG TAB.CHEW PO ×2 (09:15→16:45)
[2019-10-15] MEDS: Amiodarone 200 MG Tablet PO (09:15)
--- NOTE | 2019-10-15 09:22 | NURSING ---
There is minimal drainage noted in the VAC canister today. plan will be to change VAC dressing tomorrow. possible discharge planned for tomorrow.
--- NOTE | 2019-10-15 11:39 | PN_ITS ---
<Dick Ziegler - Last Filed: 10/15/19 11:39> Reason for Visit: anemia Subjective: no SOB, LH, dizziness. Pain controlled. no fever/chills. Vitals/I&O's: Vital Signs Temp Pulse Resp BP Pulse Ox 98.1 F 80 16 116/59 L 96 10/14/19 20:20 10/14/19 20:20 10/14/19 20:20 10/14/19 20:20 10/14/19 20:20 Oxygen Flow Rate (L/min) 6 Oxygen Delivery Method Room Air Weight: 239 lb 15.994 oz Body Mass Index (BMI) 30.8 Intake and Output for Last 24 Hours 10/13/19 10/14/19 10/15/19 23:59 23:59 23:59 Intake Total 3480 / 3480 2086.0 / 2086.0 Output Total 750 / 750 1300 / 1300 200 / 200 Balance 2730 / 2730 786.0 / 786.0 -200 / -200 General: Alert, Oriented x3, Cooperative HEENT: Atraumatic, PERRLA, EOMI, Normocephalic Neck: Supple, No JVD, Negative Carotid Bruits Lungs: Clear to auscultation, Normal air movement Cardiovascular: Regular rate, No murmurs Abdomen: Bowel Sounds Present, Soft, Non Tender Extremities: No edema, Capillary Refill Less than 3 Seconds Skin: No rashes, No breakdown Musculoskeletal: No Tenderness to Palpation of Joints or Extremities Neurological: Cranial nerves II-XII grossly intact Psych/Mental Status: Normal Affect, Appropriate, Alert and oriented to time, place, person, mood and affect Microbiology Past 72 Hours 10/13/19 12:40 Tissue - Hip Gram Stain - Final 10/13/19 12:40 Tissue - Hip Wound Culture - Preliminary No growth-Final to follow 10/13/19 12:40 Tissue - Hip Anaerobic Culture - Preliminary No growth in 48 hours. 10/13/19 12:40 Tissue - Hip Gram Stain - Final 10/13/19 12:40 Tissue - Hip Wound Culture - Preliminary No growth-Final to follow 10/13/19 12:40 Tissue - Hip Anaerobic Culture - Preliminary No growth in 48 hours. 10/13/19 12:40 Tissue - Hip Gram Stain - Final 10/13/19 12:40 Tissue - Hip Wound Culture - Preliminary No growth-Final to follow 10/13/19 12:40 Tissue - Hip Anaerobic Culture - Preliminary No growth in 48 hours. Laboratory Results 10/15/19 04:26: WBC Pending, RBC Pending, Hgb Pending, Hct Pending, MCV Pending, MCH Pending, MCHC Pending, RDW Std Deviation Pending, RDW Coeff of Morenita Pending, Plt Count Pending 10/15/19 08:25: Blood Type Pending, Antibody Screen Pending, Crossmatch See Detail Current Medications Acetaminophen (Tylenol) 1,000 mg PO Q8 [facility] Last Admin: 10/14/19 22:58 Dose: 1,000 mg Documented by: Amiodarone HCl (Cordarone) 200 mg PO DAILY@0800 [facility] Last Admin: 10/14/19 08:12 Dose: 200 mg Documented by: Aspirin (Aspirin, Baby) 81 mg PO BIDCM [facility] Last Admin: 10/14/19 16:26 Dose: 81 mg Documented by: Enteral Nutritional Formula (Ensure Surgery) 237 ml PO TIDCM [facility] Last Admin: 10/14/19 16:25 Dose: 237 ml Documented by: Famotidine (Pepcid) 20 mg PO DAILY [facility] Last Admin: 10/14/19 08:12 Dose: 20 mg Documented by: Fluconazole (Diflucan) 200 mg PO DAILY [facility] Last Admin: 10/14/19 08:13 Dose: 200 mg Documented by: Insulin Human Lispro (Humalog Kwikpen ([facility])) 1 - 6 unit SC Q4H PRN PRN; Protocol PRN Reason: BG>/= 180, SEE PROTOCOL Ketorolac Tromethamine (Toradol (Bkc)) 15 mg IV Q6H PRN PRN PRN Reason: Pain Score 1-5/10 Stop: 10/15/19 12:01 Linezolid (Zyvox) 600 mg PO BID [facility] Last Admin: 10/14/19 22:59 Dose: 600 mg Documented by: Morphine Sulfate () 2 - 4 mg IV Q2H PRN PRN PRN Reason: Pain Score 4-10/10 Nutritional Formula (Leon - [place] Flavor) [facility] Last Admin: 10/14/19 16:28 Dose: 1 packet Documented by: Ondansetron HCl (Zofran) 4 mg IV Q8H PRN PRN PRN Reason: NAUSEA Last Admin: 10/13/19 17:07 Dose: 4 mg Documented by: Oxycodone HCl (Oxyir) 5 mg PO Q4H PRN PRN PRN Reason: Pain Score 6-10/10 Pantoprazole Sodium (Protonix) 20 mg PO DAILY [facility] Last Admin: 10/14/19 08:12 Dose: 20 mg Documented by: Polyethylene Glycol (Miralax) 17 gm PO DAILY PRN PRN PRN Reason: Constipation Polysaccharide Iron Complex (Ferrex 150) [facility] Last Admin: 10/14/19 08:11 Dose: 150 mg Documented by: Promethazine HCl (Phenergan) 12.5 mg IM Q6H PRN PRN; Protocol PRN Reason: NAUSEA/VOMITING Senna/Docusate Sodium (Senokot-S, Herminia-Colace) 2 tablet PO BID [facility] Last Admin: 10/14/19 22:58 Dose: 2 tablet Documented by: Sodium Chloride () 10 - 40 ml IV UD PRN PRN Reason: SALINE FLUSH Last Admin: 10/13/19 17:08 Dose: 10 ml Documented by: Medical Necessity - Tobacco Use Smoking Status: Never smoker Assessment/Plan All Active Problems Debility (Acute) Hip hematoma, left (Resolved) Hip dislocation, left (Resolved) Toe pain, left (Resolved) Toe pain, right (Resolved) Sternal fracture (Resolved) Multiple rib fractures (Resolved) Lumbar transverse process fracture (Resolved) Sacral fracture, closed (Resolved) Fracture of left inferior pubic ramus (Resolved) Fracture of ischial tuberosity (Resolved) Open fracture of right proximal tibia (Resolved) Open fracture of right distal tibia (Resolved) Open fracture of right humerus (Resolved) Right scapula fracture (Resolved) Closed fracture of right distal femur (Resolved) Left femoral shaft fracture (Resolved) Small bowel obstruction (Resolved) Pneumocytosis (Resolved) Metacarpal bone fracture (Resolved) Fracture, metacarpal shaft (Resolved) CMC arthritis, thumb, 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 Left total hip with associated infection, postop day #2 status post irrigation and debridement left hip with acetabular liner and femoral head revision excision of sinus tract left hip-patient of Dr. Collado, infectious disease following, on linezolid and fluconazole. Repeat cx pending. spacer out. Afebrile. 2. Acute on chronic anemia, iron deficiency-type and cross 2 units packed red blood cells today, continue iron supplementation 3. Paroxysmal atrial fibrillation-amiodarone. rate controlled. 4. 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 GERD-famotidine DVT prophylaxis: Per Ortho aspirin twice daily Thank you the opportunity to participate in the care of this patient. This patient was seen by Dick Ziegler PA-C under the supervision of Doctor Linda. <Julio Mckeon F - Last Filed: 10/15/19 13:56> Vitals/I&O's: Vital Signs Temp Pulse Resp BP Pulse Ox 98.1 F 80 16 116/59 L 96 10/14/19 20:20 10/14/19 20:20 10/14/19 20:20 10/14/19 20:20 10/14/19 20:20 Oxygen Flow Rate (L/min) 6 Oxygen Delivery Method Room Air Weight: 239 lb 15.994 oz Body Mass Index (BMI) 30.8 Intake and Output for Last 24 Hours 10/13/19 10/14/19 10/15/19 23:59 23:59 23:59 Intake Total 3480 / 3480 2086.0 / 2086.0 360 / 360 Output Total 750 / 750 1300 / 1300 520 / 520 Balance 2730 / 2730 786.0 / 786.0 -160 / -160 Microbiology Past 72 Hours 10/13/19 12:40 Tissue - Hip Gram Stain - Final 10/13/19 12:40 Tissue - Hip Wound Culture - Preliminary No growth-Final to follow 10/13/19 12:40 Tissue - Hip Anaerobic Culture - Preliminary No growth in 48 hours. 10/13/19 12:40 Tissue - Hip Gram Stain - Final 10/13/19 12:40 Tissue - Hip Wound Culture - Preliminary No growth-Final to follow 10/13/19 12:40 Tissue - Hip Anaerobic Culture - Preliminary No growth in 48 hours. 10/13/19 12:40 Tissue - Hip Gram Stain - Final 10/13/19 12:40 Tissue - Hip Wound Culture - Preliminary No growth-Final to follow 10/13/19 12:40 Tissue - Hip Anaerobic Culture - Preliminary No growth in 48 hours. Laboratory Results 10/15/19 04:26: WBC Pending, RBC Pending, Hgb Pending, Hct Pending, MCV Pending, MCH Pending, MCHC Pending, RDW Std Deviation Pending, RDW Coeff of Morenita Pending, Plt Count Pending 10/15/19 08:25: Blood Type O POSITIVE, Antibody Screen NEGATIVE, Crossmatch See Detail Current Medications Acetaminophen (Tylenol) 1,000 mg PO Q8 [facility] Last Admin: 10/15/19 06:35 Dose: 1,000 mg Documented by: Amiodarone HCl (Cordarone) 200 mg PO DAILY@0800 [facility] Last Admin: 10/15/19 09:15 Dose: 200 mg Documented by: Aspirin ([facility]in, Baby) [facility] Last Admin: 10/15/19 09:15 Dose: 81 mg Documented by: Enteral Nutritional Formula (Ensure Surgery) 237 ml PO TIDCM [facility] Last Admin: 10/15/19 12:51 Dose: 237 ml Documented by: Famotidine (Pepcid) 20 mg PO DAILY [facility] Last Admin: 10/15/19 09:15 Dose: 20 mg Documented by: Fluconazole (Diflucan) 200 mg PO DAILY [facility] Last Admin: 10/15/19 09:15 Dose: 200 mg Documented by: Insulin Human Lispro (Humalog Kwikpen (Bkc)) 1 - 6 unit SC Q4H PRN PRN; Protocol PRN Reason: BG>/= 180, SEE PROTOCOL Linezolid (Zyvox) 600 mg PO BID [facility] Last Admin: 10/15/19 09:15 Dose: 600 mg Documented by: Morphine Sulfate () 2 - 4 mg IV Q2H PRN PRN PRN Reason: Pain Score 4-10/10 Nutritional Formula (Leon - Fountain Flavor) [facility] Last Admin: 10/15/19 09:15 Dose: 1 packet Documented by: Ondansetron HCl (Zofran) 4 mg IV Q8H PRN PRN PRN Reason: NAUSEA Last Admin: 10/13/19 17:07 Dose: 4 mg Documented by: Oxycodone HCl (Oxyir) 5 mg PO Q4H PRN PRN PRN Reason: Pain Score 6-10/10 Pantoprazole Sodium (Protonix) 20 mg PO DAILY [facility] Last Admin: 10/15/19 09:15 Dose: 20 mg Documented by: Polyethylene Glycol (Miralax) 17 gm PO DAILY PRN PRN PRN Reason: Constipation Polysaccharide Iron Complex (Ferrex 150) 150 mg PO DAILYCM [facility] Last Admin: 10/15/19 09:15 Dose: 150 mg Documented by: Promethazine HCl (Phenergan) 12.5 mg IM Q6H PRN PRN; Protocol PRN Reason: NAUSEA/VOMITING Senna/Docusate Sodium (Senokot-S, Herminia-Colace) 2 tablet PO BID [facility] Last Admin: 10/15/19 09:15 Dose: 2 tablet Documented by: Sodium Chloride () 10 - 40 ml IV UD PRN PRN Reason: SALINE FLUSH Last Admin: 10/13/19 17:08 Dose: 10 ml Documented by: Addendum: Dr. Mckeon I personally examined the patient and reviewed the chart. I agree with the above. 84-year-old male with a draining left hip wound. He is status post irrigation debridement of his left hip with an acetabular liner and femoral head revision. Infectious diseases consulted to help manage antibiotic choices. Based on his previous wound cultures in May with staph epidermidis and VRE. He is currently on Zyvox and Diflucan. We will continue these medications and monitor. White blood cell count as an outpatient given the Zyvox. Hemoglobin was 7.1 yesterday is currently-because. A repeat CBC is currently pending, and he will likely need to be transfused 2 units today. Inpatient E&M: [id number] [facility] L2
[2019-10-15 11:49] LABS: Hematocrit 20.5 % (40-54); Hemoglobin 6.5 g/dL (13.0-16.5); Mean Corp Hgb Conc 31.7 g/dL (32-36); Mean Corpuscular Hgb 30.2 pg (27.0-32.0); Mean Corpuscular Volume 95.3 fL (80-94); Mean Platelet Vol. 9.6 fl (6.2-12.0); POSITIVE COUNT YES; POSITIVE MORPHOLOGY YES; Platelet Count 266 K/mm3 (150-450); RBC Distribution Width CV 14.9 % (11.6-14.6); RBC Distribution Width SD 50.2 fl (35.1-43.9); Red Blood Count 2.15 M/mm3 (4.6-6.2)
[2019-10-15 14:35] LABS: Scan Indicated on CBC? Y/N YES- FLAGS NOTED
--- NOTE | 2019-10-15 14:36 | CASEMGMT ---
This RN CM to room to discuss discharge plan with pt at this time. Pt is A/Ox4 at this time. Pt states he would like to go home with resumption of [facility]. Pt states no concerns with going home at this time. Per Dr. Bonilla, pt to be sent home on po antibx. Pt also has home wound vac here that will placed on wound prior to discharge. Call to Yamini at [facility] to notify of resumption of care and tentative discharge for 10/16/2019, voices understanding. Resumption of care order placed at this time. SStaten DERICK CM
--- NOTE | 2019-10-15 14:39 | PN.ID_ITS ---
Subjective: Feeling ok, no fever, no n/v/d - Physical Exam Vitals/I&O's: Vital Signs Temp Pulse Resp BP Pulse Ox 98.1 F 80 16 116/59 L 96 10/14/19 20:20 10/14/19 20:20 10/14/19 20:20 10/14/19 20:20 10/14/19 20:20 Oxygen Flow Rate (L/min) 6 Oxygen Delivery Method Room Air Weight: 108.862 kg Body Mass Index (BMI) 30.8 Intake and Output for Last 24 Hours 10/13/19 10/14/19 10/15/19 23:59 23:59 23:59 Intake Total 3480 / 3480 2086.0 / 2086.0 360 / 360 Output Total 750 / 750 1300 / 1300 520 / 520 Balance 2730 / 2730 786.0 / 786.0 -160 / -160 General: Alert, Cooperative, No apparent distress Lungs: Clear to auscultation, Normal air movement Cardiovascular: Regular rate, Regular Rhythm Abdomen: Soft, Non Tender, Non-Distended Skin: No rashes, Incision - wrapped Microbiology Past 72 Hours 10/13/19 12:40 Tissue - Hip Gram Stain - Final 10/13/19 12:40 Tissue - Hip Wound Culture - Preliminary No growth-Final to follow 10/13/19 12:40 Tissue - Hip Anaerobic Culture - Preliminary No growth in 48 hours. 10/13/19 12:40 Tissue - Hip Gram Stain - Final 10/13/19 12:40 Tissue - Hip Wound Culture - Preliminary No growth-Final to follow 10/13/19 12:40 Tissue - Hip Anaerobic Culture - Preliminary No growth in 48 hours. 10/13/19 12:40 Tissue - Hip Gram Stain - Final 10/13/19 12:40 Tissue - Hip Wound Culture - Preliminary No growth-Final to follow 10/13/19 12:40 Tissue - Hip Anaerobic Culture - Preliminary No growth in 48 hours. Laboratory Results 10/15/19 04:26: WBC 10.0, RBC 2.15 L, Hgb 6.5 L, Hct 20.5 L, MCV 95.3 H, MCH 30.2, MCHC 31.7 L, RDW Std Deviation 50.2 H, RDW Coeff of Morenita 14.9 H, Plt Count 266, MPV 9.6 10/15/19 08:25: Blood Type O POSITIVE, Antibody Screen NEGATIVE, Crossmatch See Detail Current Medications Acetaminophen (Tylenol) 1,000 mg PO Q8 [facility] Last Admin: 10/15/19 06:35 Dose: 1,000 mg Documented by: Amiodarone HCl (Cordarone) 200 mg PO DAILY@0800 [facility] Last Admin: 10/15/19 09:15 Dose: 200 mg Documented by: [facility], [facility]) [facility] Last Admin: 10/15/19 09:15 Dose: 81 mg Documented by: Enteral Nutritional Formula (Ensure Surgery) 237 ml PO TIDCM [facility] Last Admin: 10/15/19 12:51 Dose: 237 ml Documented by: Famotidine (Pepcid) 20 mg PO DAILY [facility] Last Admin: 10/15/19 09:15 Dose: 20 mg Documented by: Fluconazole (Diflucan) 200 mg PO DAILY [facility] Last Admin: 10/15/19 09:15 Dose: 200 mg Documented by: Insulin Human Lispro (Humalog Kwikpen (Bkc)) 1 - 6 unit SC Q4H PRN PRN; Protocol PRN Reason: BG>/= 180, SEE PROTOCOL Linezolid (Zyvox) 600 mg PO BID [facility] Last Admin: 10/15/19 09:15 Dose: 600 mg Documented by: Morphine Sulfate () 2 - 4 mg IV Q2H PRN PRN PRN Reason: Pain Score 4-10/10 Nutritional Formula (Leon - [place] Flavor) [facility] Last Admin: 10/15/19 09:15 Dose: 1 packet Documented by: Ondansetron HCl (Zofran) 4 mg IV Q8H PRN PRN PRN Reason: NAUSEA Last Admin: 10/13/19 17:07 Dose: 4 mg Documented by: Oxycodone HCl (Oxyir) 5 mg PO Q4H PRN PRN PRN Reason: Pain Score 6-10/10 Pantoprazole Sodium (Protonix) 20 mg PO DAILY [facility] Last Admin: 10/15/19 09:15 Dose: 20 mg Documented by: Polyethylene Glycol (Miralax) 17 gm PO DAILY PRN PRN PRN Reason: Constipation Polysaccharide Iron Complex (Ferrex 150) [facility] Last Admin: 10/15/19 09:15 Dose: 150 mg Documented by: Promethazine HCl (Phenergan) 12.5 mg IM Q6H PRN PRN; Protocol PRN Reason: NAUSEA/VOMITING Senna/Docusate Sodium (Senokot-S, Herminia-Colace) 2 tablet PO BID [facility] Last Admin: 10/15/19 09:15 Dose: 2 tablet Documented by: Sodium Chloride () 10 - 40 ml IV UD PRN PRN Reason: SALINE FLUSH Last Admin: 10/13/19 17:08 Dose: 10 ml Documented by: Medical Necessity - Tobacco Use Smoking Status: Never smoker Route of nutrition/ use of supplements: [] Nutritional Intake: [] IV Site: [] Powell Catheter: [] - Assessment/Plan Antibiotics: [] Assessment/Plan: [] 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 Taken back to OR 10/13/[address] Collado. Components replaced. Surg cxs neg so far Cont linezolid and fluc. Limited options for mcc therapy. Courses of linezolid over 2 weeks will need weekly monitoring of cbc, every other week bmp and LFT. Will follow, d/w disability case manager
--- NOTE | 2019-10-15 15:47 | PCM.PN.ORT ---
Subjective: exam was performed this morning at 7:30 AM but [facility] computer system was down. a progress note was unable to be done on computer. The patient was sitting in bed upon examination. Patient denies any chest pain, shortness of breath, dizziness, lightheadedness, nausea or vomiting, or calf pain. Pain is controlled on medications. patient is only requiring Tylenol. No adverse overnight events. Overall patient is doing well and his pain is well controlled. Patient did have a drop in hemoglobin to 6.5 but currently is asymptomatic with no dizziness, lightheadedness, or feeling of passing out. Patient's previous surgery was on September 23, 2019 in which he underwent revision total hip arthroplasty with conversion from previous antibiotic spacer. Patient had continued drainage with use of wound VAC. Objective: vital signs stable and afebrile. Blood pressure was 122/54, heart rate 78, O2 saturation 94%. Computer system was down and readings were given to me by the nursing staff Sensation intact to light touch to saphenous, sural, superficial/deep peroneal, tibial distribution Patient is able to plantarflex and dorsiflex actively Negative Homans sign bilaterally, no signs of DVT on clinical exam Wound VAC dressing on skin is clean dry and intact, trace output in canister which is no different than yesterday - Physical Exam Vitals/I&O's: Vital Signs Temp Pulse Resp BP Pulse Ox 98.2 F 80 16 94/44 L 94 10/15/19 15:03 10/15/19 15:03 10/15/19 15:03 10/15/19 15:03 10/15/19 15:03 Oxygen Flow Rate (L/min) 6 Oxygen Delivery Method Room Air Weight: 108.862 kg Body Mass Index (BMI) 30.8 Intake and Output for Last 24 Hours 10/13/19 10/14/19 10/15/19 23:59 23:59 23:59 Intake Total 3480 / 3480 2086.0 / 2086.0 360 / 360 Output Total 750 / 750 1300 / 1300 520 / 520 Balance 2730 / 2730 786.0 / 786.0 -160 / -160 General: Alert, Oriented x3, Cooperative, No apparent distress Microbiology Past 72 Hours 10/13/19 12:40 Tissue - Hip Gram Stain - Final 10/13/19 12:40 Tissue - Hip Wound Culture - Preliminary No growth-Final to follow 10/13/19 12:40 Tissue - Hip Anaerobic Culture - Preliminary No growth in 48 hours. 10/13/19 12:40 Tissue - Hip Gram Stain - Final 10/13/19 12:40 Tissue - Hip Wound Culture - Preliminary No growth-Final to follow 10/13/19 12:40 Tissue - Hip Anaerobic Culture - Preliminary No growth in 48 hours. 10/13/19 12:40 Tissue - Hip Gram Stain - Final 10/13/19 12:40 Tissue - Hip Wound Culture - Preliminary No growth-Final to follow 10/13/19 12:40 Tissue - Hip Anaerobic Culture - Preliminary No growth in 48 hours. Laboratory Results 10/15/19 04:26: WBC 10.0, RBC 2.15 L, Hgb 6.5 L, Hct 20.5 L, MCV 95.3 H, MCH 30.2, MCHC 31.7 L, RDW Std Deviation 50.2 H, RDW Coeff of Morenita 14.9 H, Plt Count 266, MPV 9.6 10/15/19 08:25: Blood Type O POSITIVE, Antibody Screen NEGATIVE, Crossmatch See Detail Current Medications Acetaminophen (Tylenol) 1,000 mg PO Q8 [facility] Last Admin: 10/15/19 15:00 Dose: 1,000 mg Documented by: Amiodarone HCl (Cordarone) 200 mg PO DAILY@0800 [facility] Last Admin: 10/15/19 09:15 Dose: 200 mg Documented by: Aspirin (Aspirin, Baby) 81 mg PO BIDCM [facility] Last Admin: 10/15/19 09:15 Dose: 81 mg Documented by: Enteral Nutritional Formula (Ensure Surgery) 237 ml PO TIDCM [facility] Last Admin: 10/15/19 12:51 Dose: 237 ml Documented by: Famotidine (Pepcid) 20 mg PO DAILY [facility] Last Admin: 10/15/19 09:15 Dose: 20 mg Documented by: Fluconazole (Diflucan) 200 mg PO DAILY [facility] Last Admin: 10/15/19 09:15 Dose: 200 mg Documented by: Insulin Human Lispro (Humalog Kwikpen (Bkc)) 1 - 6 unit SC Q4H PRN PRN; Protocol PRN Reason: BG>/= 180, SEE PROTOCOL Linezolid (Zyvox) 600 mg PO BID [facility] Last Admin: 10/15/19 09:15 Dose: 600 mg Documented by: Morphine Sulfate () 2 - 4 mg IV Q2H PRN PRN PRN Reason: Pain Score 4-10/10 Nutritional Formula (Leon - [place] Flavor) [facility] Last Admin: 10/15/19 09:15 Dose: 1 packet Documented by: Ondansetron HCl (Zofran) 4 mg IV Q8H PRN PRN PRN Reason: NAUSEA Last Admin: 10/13/19 17:07 Dose: 4 mg Documented by: Oxycodone HCl (Oxyir) 5 mg PO Q4H PRN PRN PRN Reason: Pain Score 6-10/10 Pantoprazole Sodium (Protonix) 20 mg PO DAILY [facility] Last Admin: 10/15/19 09:15 Dose: 20 mg Documented by: Polyethylene Glycol (Miralax) 17 gm PO DAILY PRN PRN PRN Reason: Constipation Polysaccharide Iron Complex (Ferrex 150) [facility] Last Admin: 10/15/19 09:15 Dose: 150 mg Documented by: Promethazine HCl (Phenergan) 12.5 mg IM Q6H PRN PRN; Protocol PRN Reason: NAUSEA/VOMITING Senna/Docusate Sodium (Senokot-S, Herminia-Colace) 2 tablet PO BID [facility] Last Admin: 10/15/19 09:15 Dose: 2 tablet Documented by: Sodium Chloride () 10 - 40 ml IV UD PRN PRN Reason: SALINE FLUSH Last Admin: 10/13/19 17:08 Dose: 10 ml Documented by: Medical Necessity - Tobacco Use Smoking Status: Never smoker Assessment/Plan All Active Problems Debility (Acute) Hip hematoma, left (Resolved) Hip dislocation, left (Resolved) Toe pain, left (Resolved) Toe pain, right (Resolved) Sternal fracture (Resolved) Multiple rib fractures (Resolved) Lumbar transverse process fracture (Resolved) Sacral fracture, closed (Resolved) Fracture of left inferior pubic ramus (Resolved) Fracture of ischial tuberosity (Resolved) Open fracture of right proximal tibia (Resolved) Open fracture of right distal tibia (Resolved) Open fracture of right humerus (Resolved) Right scapula fracture (Resolved) Closed fracture of right distal femur (Resolved) Left femoral shaft fracture (Resolved) Small bowel obstruction (Resolved) Pneumocytosis (Resolved) Metacarpal bone fracture (Resolved) Fracture, metacarpal shaft (Resolved) CMC arthritis, thumb, 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 S/P irrigation debridement left hip with acetabular liner and femoral head revision with excision of sinus tract left hip. Complex wound closure multiple liters left hip 31 cm POD #2 2. Continue Pain Medications: Tylenol and oxycodone. Patient only wishes to take Tylenol 3. DVT Prophylaxis: Aspirin 81 mg twice daily for 4 weeks postoperatively 4. PT/OT: Weightbearing as tolerated with walker. Strict posterior hip dislocation precautions for 3 months postoperatively 5. acute on chronic anemia with iron deficiency:H & H: 6.5/20.5, asymptomatic. case was discussed with Dr. Hugh Collado and at this time patient will be given 2 units packed red blood cells. Verbal order was given to the nurse. 6. Encouraged Incentive Spirometry 7. Wound VAC: Consult placed to wound VAC nurse. We will continue with wound VAC postoperatively with patient having home unit. They will bring in clinical trials systems administrator. 8. Continue postoperative medical management per medicine: Appreciate assistance with patient's comorbidities. We will continue to follow hemoglobin. case was discussed with Dick Ziegler PA-C. 9. Consult infectious disease: Cultures currently pending. Appreciate input for antibiotics postoperatively while following cultures. 10. Disposition: Will need to continue to follow patient's hemoglobin and cultures. Plan will be for possible discharge home when medically ready.
--- NOTE | 2019-10-15 15:59 | CHAPLAIN ---
Type of Pastoral Visit _x__ Initial Visit ___ Follow-up Visit ___ On-call Visit ___ General Patient Visit ___ Spiritual Assessment ___ Family Conference ___ Bereavement ___ Rapid Response ___ Code Blue ___ Other (describe below) Pastoral Care Referral From _x__ Patient ___ Family ___ Nurse ___ Physician ___ Cloth Finishing Range Operator Chief ___ Merchandiser ___ Other (describe below) Sacrament/Intervention _x__ Active listening ___ Anointing ___ Church ___ Bereavement ___ Communion ___ Gissell exploration ___ ___ Life review _x__ Prayer ___ Reconciliation ___ Sacrament of Sick _x__ Supportive presence ___ Wedding ___ Other (describe below) Pastoral Comments
[2019-10-16 02:14] VITALS: BP 124/61; PULSE 77; RESP 18; TEMP 36.8; O2SAT 95
[2019-10-16 05:44] LABS: Hematocrit 24.8 % (40-54); Hemoglobin 8.1 g/dL (13.0-16.5); Mean Corp Hgb Conc 32.7 g/dL (32-36); Mean Corpuscular Hgb 30.2 pg (27.0-32.0); Mean Corpuscular Volume 92.5 fL (80-94); Platelet Count 248 K/mm3 (150-450); RBC Distribution Width CV 17.2 % (11.6-14.6); RBC Distribution Width SD 53.1 fl (35.1-43.9); Red Blood Count 2.68 M/mm3 (4.6-6.2); White Blood Count 6.6 K/mm3 (4.4-11.0)
[2019-10-16] MEDS: Acetaminophen 500 MG Tablet 1000 MG PO ×2 (06:19→14:07)
[2019-10-16 08:19] VITALS: BP 125/53; PULSE 74; RESP 18; TEMP 36.6; O2SAT 96
[2019-10-16] MEDS: Senna/Docusate Sodium 1 Tablet 2 TABLET PO (08:22)
[2019-10-16] MEDS: Pantoprazole Sodium 20 MG Tablet PO (08:22)
[2019-10-16] MEDS: Aspirin 81 MG TAB.CHEW PO (08:22)
[2019-10-16] MEDS: Linezolid 600 MG Tablet PO (08:22)
[2019-10-16] MEDS: Amiodarone 200 MG Tablet PO (08:22)
[2019-10-16] MEDS: Famotidine 20 MG Tablet PO (08:22)
[2019-10-16] MEDS: Fluconazole 100 MG Tablet 200 MG PO (08:22)
[2019-10-16] MEDS: Iron Polysaccharide Complex 150 MG CAPSULE PO (08:23)
[2019-10-16] MEDS: Ensure Surgery 237 ML LIQUID PO ×2 (08:23→13:00)
--- NOTE | 2019-10-16 09:42 | NURSING ---
wound photo: left hip
--- NOTE | 2019-10-16 10:12 | PCM.PN.HOSP ---
<Dick Ziegler - Last Filed: 10/16/19 10:12> Subjective: ongoing hip pain, well controlled. no fever/chills. no lh/dizziness/SOB. no obvious bleeding Vitals/I&O's: Vital Signs Temp Pulse Resp BP Pulse Ox 97.8 F 74 18 125/53 H 96 10/16/19 08:19 10/16/19 08:19 10/16/19 08:19 10/16/19 08:19 10/16/19 08:19 Oxygen Flow Rate (L/min) 6 Oxygen Delivery Method Room Air Weight: 239 lb 15.994 oz Body Mass Index (BMI) 30.8 Intake and Output for Last 24 Hours 10/14/19 10/15/19 10/16/19 23:59 23:59 23:59 Intake Total 2086.0 / 2086.0 1120 / 1420 400 / 400 Output Total 1300 / 1300 860 / 1310 1300 / 1300 Balance 786.0 / 786.0 260 / 110 -900 / -900 General: Alert, Oriented x3, Cooperative HEENT: Atraumatic, PERRLA, EOMI, Normocephalic Neck: Supple, No JVD, Negative Carotid Bruits Lungs: Clear to auscultation, Normal air movement Cardiovascular: Regular rate, No murmurs Abdomen: Bowel Sounds Present, Soft, Non Tender Extremities: No edema, Capillary Refill Less than 3 Seconds Skin: No rashes, No breakdown Musculoskeletal: No Tenderness to Palpation of Joints or Extremities Neurological: Cranial nerves II-XII grossly intact Psych/Mental Status: Normal Affect, Appropriate, Alert and oriented to time, place, person, mood and affect Microbiology Past 72 Hours 10/13/19 12:40 Tissue - Hip Gram Stain - Final 10/13/19 12:40 Tissue - Hip Wound Culture - Preliminary No growth-Final to follow 10/13/19 12:40 Tissue - Hip Anaerobic Culture - Preliminary No growth in 48 hours. 10/13/19 12:40 Tissue - Hip Gram Stain - Final 10/13/19 12:40 Tissue - Hip Wound Culture - Preliminary No growth-Final to follow 10/13/19 12:40 Tissue - Hip Anaerobic Culture - Preliminary No growth in 48 hours. 10/13/19 12:40 Tissue - Hip Gram Stain - Final 10/13/19 12:40 Tissue - Hip Wound Culture - Preliminary No growth-Final to follow 10/13/19 12:40 Tissue - Hip Anaerobic Culture - Preliminary No growth in 48 hours. Laboratory Results 10/15/19 04:26: WBC 10.0, RBC 2.15 L, Hgb 6.5 L, Hct 20.5 L, MCV 95.3 H, MCH 30.2, MCHC 31.7 L, RDW Std Deviation 50.2 H, RDW Coeff of Morenita 14.9 H, Plt Count 266, MPV 9.6 10/15/19 08:25: Blood Type O POSITIVE, Antibody Screen NEGATIVE, Crossmatch See Detail 10/16/19 05:28: WBC 6.6, RBC 2.68 L, Hgb 8.1 L, Hct 24.8 L, MCV 92.5, MCH 30.2, MCHC 32.7, RDW Std Deviation 53.1 H, RDW Coeff of Morenita 17.2 H, Plt Count 248, MPV 9.0 Current Medications Acetaminophen (Tylenol) 1,000 mg PO Q8 [facility] Last Admin: 10/16/19 06:19 Dose: 1,000 mg Documented by: Amiodarone HCl (Cordarone) 200 mg PO DAILY@0800 [facility] Last Admin: 10/16/19 08:22 Dose: 200 mg Documented by: Aspirin (Aspirin, Baby) [facility] Last Admin: 10/16/19 08:22 Dose: 81 mg Documented by: Enteral Nutritional Formula (Ensure Surgery) 237 ml PO TIDCM [facility] Last Admin: 10/16/19 08:23 Dose: 237 ml Documented by: Famotidine (Pepcid) 20 mg PO DAILY [facility] Last Admin: 10/16/19 08:22 Dose: 20 mg Documented by: Fluconazole (Diflucan) 200 mg PO DAILY [facility] Last Admin: 10/16/19 08:22 Dose: 200 mg Documented by: Insulin Human Lispro (Humalog Kwikpen (Bkc)) 1 - 6 unit SC Q4H PRN PRN; Protocol PRN Reason: BG>/= 180, SEE PROTOCOL Linezolid (Zyvox) 600 mg PO BID [facility] Last Admin: 10/16/19 08:22 Dose: 600 mg Documented by: Morphine Sulfate () 2 - 4 mg IV Q2H PRN PRN PRN Reason: Pain Score 4-10/10 Nutritional Formula (Leon - [place] Flavor) 1 packet [facility] Last Admin: 10/16/19 08:22 Dose: 1 packet Documented by: Ondansetron HCl (Zofran) 4 mg IV Q8H PRN PRN PRN Reason: NAUSEA Last Admin: 10/13/19 17:07 Dose: 4 mg Documented by: Oxycodone HCl (Oxyir) 5 mg PO Q4H PRN PRN PRN Reason: Pain Score 6-10/10 Pantoprazole Sodium (Protonix) 20 mg PO DAILY [facility] Last Admin: 10/16/19 08:22 Dose: 20 mg Documented by: Polyethylene Glycol (Miralax) 17 gm PO DAILY PRN PRN PRN Reason: Constipation Polysaccharide Iron Complex (Ferrex 150) 150 [facility] Last Admin: 10/16/19 08:23 Dose: 150 mg Documented by: Promethazine HCl (Phenergan) 12.5 mg IM Q6H PRN PRN; Protocol PRN Reason: NAUSEA/VOMITING Senna/Docusate Sodium (Senokot-S, Herminia-Colace) 2 tablet PO BID [facility] Last Admin: 10/16/19 08:22 Dose: 2 tablet Documented by: Sodium Chloride () 10 - 40 ml IV UD PRN PRN Reason: SALINE FLUSH Last Admin: 10/13/19 17:08 Dose: 10 ml Documented by: STROKE Vital Signs/Narrative: Vital Signs Temp Pulse Resp BP Pulse Ox 10/16/19 08:19 97.8 F 74 18 125/53 H 96 Medical Necessity - Tobacco Use Smoking Status: Never smoker Assessment/Plan All Active Problems Debility (Acute) Hip hematoma, left (Resolved) Hip dislocation, left (Resolved) Toe pain, left (Resolved) Toe pain, right (Resolved) Sternal fracture (Resolved) Multiple rib fractures (Resolved) Lumbar transverse process fracture (Resolved) Sacral fracture, closed (Resolved) Fracture of left inferior pubic ramus (Resolved) Fracture of ischial tuberosity (Resolved) Open fracture of right proximal tibia (Resolved) Open fracture of right distal tibia (Resolved) Open fracture of right humerus (Resolved) Right scapula fracture (Resolved) Closed fracture of right distal femur (Resolved) Left femoral shaft fracture (Resolved) Small bowel obstruction (Resolved) Pneumocytosis (Resolved) Metacarpal bone fracture (Resolved) Fracture, metacarpal shaft (Resolved) CMC arthritis, thumb, 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 Left total hip with associated infection, postop day #2 status post irrigation and debridement left hip with acetabular liner and femoral head revision excision of sinus tract left hip-patient of Dr. Collado, infectious disease following, on linezolid and fluconazole. Repeat cx pending. spacer out. Afebrile. 2. Acute on chronic anemia, iron deficiency-2 units crossed yesterday. recheck cbc saturday. check orthostatic vitals prior to dc. 3. Paroxysmal atrial fibrillation-amiodarone. rate controlled. 4. 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 GERD-famotidine DVT prophylaxis: Per Ortho aspirin twice daily Recheck CBC Saturday. Pt stable for discharge. Thank you the opportunity to participate in the care of this patient. This patient was seen by Dick Ziegler PA-C under the supervision of Doctor Linda. <Julio Mckeon F - Last Filed: 10/16/19 10:51> Vitals/I&O's: Vital Signs Temp Pulse Resp BP Pulse Ox 97.8 F 74 18 125/53 H 96 10/16/19 08:19 10/16/19 08:19 10/16/19 08:19 10/16/19 08:19 10/16/19 08:19 Oxygen Flow Rate (L/min) 6 Oxygen Delivery Method Room Air Weight: 239 lb 15.994 oz Body Mass Index (BMI) 30.8 Intake and Output for Last 24 Hours 10/14/19 10/15/19 10/16/19 23:59 23:59 23:59 Intake Total 2086.0 / 2086.0 1120 / 1420 400 / 400 Output Total 1300 / 1300 860 / 1310 1300 / 1300 Balance 786.0 / 786.0 260 / 110 -900 / -900 Microbiology Past 72 Hours 10/13/19 12:40 Tissue - Hip Gram Stain - Final 10/13/19 12:40 Tissue - Hip Wound Culture - Preliminary No growth-Final to follow 10/13/19 12:40 Tissue - Hip Anaerobic Culture - Preliminary No growth in 48 hours. 10/13/19 12:40 Tissue - Hip Gram Stain - Final 10/13/19 12:40 Tissue - Hip Wound Culture - Preliminary No growth-Final to follow 10/13/19 12:40 Tissue - Hip Anaerobic Culture - Preliminary No growth in 48 hours. 10/13/19 12:40 Tissue - Hip Gram Stain - Final 10/13/19 12:40 Tissue - Hip Wound Culture - Preliminary No growth-Final to follow 10/13/19 12:40 Tissue - Hip Anaerobic Culture - Preliminary No growth in 48 hours. Laboratory Results 10/15/19 04:26: WBC 10.0, RBC 2.15 L, Hgb 6.5 L, Hct 20.5 L, MCV 95.3 H, MCH 30.2, MCHC 31.7 L, RDW Std Deviation 50.2 H, RDW Coeff of Morenita 14.9 H, Plt Count 266, MPV 9.6 10/15/19 08:25: Blood Type O POSITIVE, Antibody Screen NEGATIVE, Crossmatch See Detail 10/16/19 05:28: WBC 6.6, RBC 2.68 L, Hgb 8.1 L, Hct 24.8 L, MCV 92.5, MCH 30.2, MCHC 32.7, RDW Std Deviation 53.1 H, RDW Coeff of Morenita 17.2 H, Plt Count 248, MPV 9.0 Current Medications Acetaminophen (Tylenol) 1,000 mg PO Q8 [facility] Last Admin: 10/16/19 06:19 Dose: 1,000 mg Documented by: Amiodarone HCl (Cordarone) 200 mg PO DAILY@0800 [facility] Last Admin: 10/16/19 08:22 Dose: 200 mg Documented by: Aspirin (Aspirin, Baby) 81 mg PO BIDCM [facility] Last Admin: 10/16/19 08:22 Dose: 81 mg Documented by: Enteral Nutritional Formula (Ensure Surgery) 237 ml PO TIDCM [facility] Last Admin: 10/16/19 08:23 Dose: 237 ml Documented by: Famotidine (Pepcid) 20 mg PO DAILY [facility] Last Admin: 10/16/19 08:22 Dose: 20 mg Documented by: Fluconazole (Diflucan) 200 mg PO DAILY [facility] Last Admin: 10/16/19 08:22 Dose: 200 mg Documented by: Insulin Human Lispro (Humalog Robert (Bkc)) 1 - 6 unit SC Q4H PRN PRN; Protocol PRN Reason: BG>/= 180, SEE PROTOCOL Linezolid (Zyvox) 600 mg PO BID [facility] Last Admin: 10/16/19 08:22 Dose: 600 mg Documented by: Morphine Sulfate () 2 - 4 mg IV Q2H PRN PRN PRN Reason: Pain Score 4-10/10 Nutritional Formula (Leon - [place] Flavor) 1 packet [facility] Last Admin: 10/16/19 08:22 Dose: 1 packet Documented by: Ondansetron HCl (Zofran) 4 mg IV Q8H PRN PRN PRN Reason: NAUSEA Last Admin: 10/13/19 17:07 Dose: 4 mg Documented by: Oxycodone HCl (Oxyir) 5 mg PO Q4H PRN PRN PRN Reason: Pain Score 6-10/10 Pantoprazole Sodium (Protonix) 20 mg PO DAILY [facility] Last Admin: 10/16/19 08:22 Dose: 20 mg Documented by: Polyethylene Glycol (Miralax) 17 gm PO DAILY PRN PRN PRN Reason: Constipation Polysaccharide Iron Complex (Ferrex 150) 150 mg [facility] Last Admin: 10/16/19 08:23 Dose: 150 mg Documented by: Promethazine HCl (Phenergan) 12.5 mg IM Q6H PRN PRN; Protocol PRN Reason: NAUSEA/VOMITING Senna/Docusate Sodium (Senokot-S, Herminia-Colace) 2 tablet PO BID [facility] Last Admin: 10/16/19 08:22 Dose: 2 tablet Documented by: Sodium Chloride () 10 - 40 ml IV UD PRN PRN Reason: SALINE FLUSH Last Admin: 10/13/19 17:08 Dose: 10 ml Documented by: STROKE Vital Signs/Narrative: Vital Signs Temp Pulse Resp BP Pulse Ox 10/16/19 08:19 97.8 F 74 18 125/53 H 96 Addendum: Dr. Mckeon I personally examined the patient and reviewed the chart. I agree with the above. 84-year-old male with a draining left hip wound. He is status post irrigation debridement of his left hip with an acetabular liner and femoral head revision. Infectious diseases consulted to help manage antibiotic choices. Based on his previous wound cultures in May with staph epidermidis and VRE. He is currently on Zyvox and Diflucan. We will continue these medications and monitor his white blood cell count as an outpatient given the Zyvox. Hemoglobin was 6.5 yesterday was transfused 2 U PRBCs, Hgb is 8.1 today. He is stable for discharge and would recommend an outpatient CBC next week to follow his WBC and Hgb. Inpatient E&M: 02804 Subs Hosp L2
--- NOTE | 2019-10-16 11:24 | PN.ORTHO_ITS ---
Subjective: The patient was sitting in bedside chair upon examination. Patient denies any chest pain, shortness of breath, dizziness, lightheadedness, nausea or vomiting, or calf pain. Pain is controlled on medications. No adverse overnight events. Overall patient is doing very well. Patient's hemoglobin increased to 8.1 today after receiving 2 units of packed red blood cells yesterday. He denies any dizziness or lightheadedness. Patient has been tolerating physical therapy. Case was discussed with medicine and infectious disease. Patient will be able to be discharged home today. Infectious disease will be ordering lab work as well as prescriptions for antibiotics. Medicine does recommend we get a repeat CBC in 1 week. Patient has his own home wound VAC and this will be attached prior to discharge. Objective: Vital signs stable and afebrile. Patient is able to plantarflex and dorsiflex actively. Sensation is intact to light touch to saphenous, sural, superficial and deep peroneal, and tibial distribution. Dressing is clean dry and intact. Wound VAC in place with no output in canister. Wound VAC was changed already today and picture was observed in the computer. Case was discussed with wound VAC nurse. Negative Homans bilaterally, negative signs and symptoms of DVT. - Physical Exam Vitals/I&O's: Vital Signs Temp Pulse Resp BP Pulse Ox 97.8 F 74 18 125/53 H 96 10/16/19 08:19 10/16/19 08:19 10/16/19 08:19 10/16/19 08:19 10/16/19 08:19 Oxygen Flow Rate (L/min) 6 Oxygen Delivery Method Room Air Weight: 108.862 kg Body Mass Index (BMI) 30.8 Intake and Output for Last 24 Hours 10/14/19 10/15/19 10/16/19 23:59 23:59 23:59 Intake Total 2086.0 / 2086.0 1120 / 1420 400 / 400 Output Total 1300 / 1300 860 / 1310 1300 / 1300 Balance 786.0 / 786.0 260 / 110 -900 / -900 General: Alert, Oriented x3, Cooperative, No apparent distress Microbiology Past 72 Hours 10/13/19 12:40 Tissue - Hip Gram Stain - Final 10/13/19 12:40 Tissue - Hip Wound Culture - Preliminary No growth-Final to follow 10/13/19 12:40 Tissue - Hip Anaerobic Culture - Preliminary No growth in 48 hours. 10/13/19 12:40 Tissue - Hip Gram Stain - Final 10/13/19 12:40 Tissue - Hip Wound Culture - Preliminary No growth-Final to follow 10/13/19 12:40 Tissue - Hip Anaerobic Culture - Preliminary No growth in 48 hours. 10/13/19 12:40 Tissue - Hip Gram Stain - Final 10/13/19 12:40 Tissue - Hip Wound Culture - Preliminary No growth-Final to follow 10/13/19 12:40 Tissue - Hip Anaerobic Culture - Preliminary No growth in 48 hours. Laboratory Results 10/15/19 04:26: WBC 10.0, RBC 2.15 L, Hgb 6.5 L, Hct 20.5 L, MCV 95.3 H, MCH 30.2, MCHC 31.7 L, RDW Std Deviation 50.2 H, RDW Coeff of Morenita 14.9 H, Plt Count 266, MPV 9.6 10/15/19 08:25: Blood Type O POSITIVE, Antibody Screen NEGATIVE, Crossmatch See Detail 10/16/19 05:28: WBC 6.6, RBC 2.68 L, Hgb 8.1 L, Hct 24.8 L, MCV 92.5, MCH 30.2, MCHC 32.7, RDW Std Deviation 53.1 H, RDW Coeff of Morenita 17.2 H, Plt Count 248, MPV 9.0 Current Medications Acetaminophen (Tylenol) 1,000 mg PO Q8 [facility] Last Admin: 10/16/19 06:19 Dose: 1,000 mg Documented by: Amiodarone HCl (Cordarone) 200 mg PO DAILY@0800 [facility] Last Admin: 10/16/19 08:22 Dose: 200 mg Documented by: Aspirin (Aspirin, Baby) 81 mg PO BIDCM [facility] Last Admin: 10/16/19 08:22 Dose: 81 mg Documented by: Enteral Nutritional Formula (Ensure Surgery) 237 ml PO TIDCM [facility] Last Admin: 10/16/19 08:23 Dose: 237 ml Documented by: Famotidine (Pepcid) 20 mg PO DAILY [facility] Last Admin: 10/16/19 08:22 Dose: 20 mg Documented by: Fluconazole (Diflucan) 200 mg PO DAILY [facility] Last Admin: 10/16/19 08:22 Dose: 200 mg Documented by: Insulin Human Lispro (Humalog Kwikpen (Bkc)) 1 - 6 unit SC Q4H PRN PRN; Protocol PRN Reason: BG>/= 180, SEE PROTOCOL Linezolid (Zyvox) 600 mg PO BID [facility] Last Admin: 10/16/19 08:22 Dose: 600 mg Documented by: Morphine Sulfate () 2 - 4 mg IV Q2H PRN PRN PRN Reason: Pain Score 4-10/10 Nutritional Formula (Leon - [place] Flavor) [facility] Last Admin: 10/16/19 08:22 Dose: 1 packet Documented by: Ondansetron HCl (Zofran) 4 mg IV Q8H PRN PRN PRN Reason: NAUSEA Last Admin: 10/13/19 17:07 Dose: 4 mg Documented by: Oxycodone HCl (Oxyir) 5 mg PO Q4H PRN PRN PRN Reason: Pain Score 6-10/10 Pantoprazole Sodium (Protonix) 20 mg PO DAILY [facility] Last Admin: 10/16/19 08:22 Dose: 20 mg Documented by: Polyethylene Glycol (Miralax) 17 gm PO DAILY PRN PRN PRN Reason: Constipation Polysaccharide Iron Complex (Ferrex 150) [facility] Last Admin: 10/16/19 08:23 Dose: 150 mg Documented by: Promethazine HCl (Phenergan) 12.5 mg IM Q6H PRN PRN; Protocol PRN Reason: NAUSEA/VOMITING Senna/Docusate Sodium (Senokot-S, Herminia-Colace) 2 tablet PO BID [facility] Last Admin: 10/16/19 08:22 Dose: 2 tablet Documented by: Sodium Chloride () 10 - 40 ml IV UD PRN PRN Reason: SALINE FLUSH Last Admin: 10/13/19 17:08 Dose: 10 ml Documented by: Medical Necessity - Tobacco Use Smoking Status: Never smoker Assessment/Plan All Active Problems Debility (Acute) Hip hematoma, left (Resolved) Hip dislocation, left (Resolved) Toe pain, left (Resolved) Toe pain, right (Resolved) Sternal fracture (Resolved) Multiple rib fractures (Resolved) Lumbar transverse process fracture (Resolved) Sacral fracture, closed (Resolved) Fracture of left inferior pubic ramus (Resolved) Fracture of ischial tuberosity (Resolved) Open fracture of right proximal tibia (Resolved) Open fracture of right distal tibia (Resolved) Open fracture of right humerus (Resolved) Right scapula fracture (Resolved) Closed fracture of right distal femur (Resolved) Left femoral shaft fracture (Resolved) Small bowel obstruction (Resolved) Pneumocytosis (Resolved) Metacarpal bone fracture (Resolved) Fracture, metacarpal shaft (Resolved) CMC arthritis, thumb, 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 S/P irrigation debridement left hip with acetabular liner and femoral head revision with excision of sinus tract left hip. Complex wound closure multiple liters left hip 31 cm POD #3 2. Continue Pain Medications: Tylenol and oxycodone. Patient only wishes to take Tylenol 3. DVT Prophylaxis: Aspirin 81 mg twice daily for 4 weeks postoperatively 4. PT/OT: Weightbearing as tolerated with walker. Strict posterior hip dislocation precautions for 3 months postoperatively 5. acute on chronic anemia with iron deficiency: H & H: 8.1/24.8, asymptomatic. Case was discussed with medicine and patient will get repeat CBC next week. 6. Encouraged Incentive Spirometry 7. Wound VAC: Patient will be switched over to his home wound VAC prior to discharge. Plan will be for twice weekly changes. If patient has 2 consecutive dry dressing changes we can discontinue the wound VAC. This was discussed with the wound VAC nurse. Order will be placed for communication with home health. 8. Continue postoperative medical management per medicine: Appreciate assistance with patient's comorbidities. Discussed with medicine and okay for discharge home today. Repeat CBC 1 week. 9. Consult infectious disease: Cultures were reviewed and there are no organisms and no growth on all 3 cultures. Patient currently using linezolid and fluconazole per infectious disease. 10. Disposition: Orthopedically stable, okay for discharge. Patient was given okay for discharge from medicine and infectious disease standpoint. Patient is only been requiring Tylenol for pain control and he refuses narcotics. He will continue with the Tylenol. Patient will continue with aspirin 81 mg twice daily for 4 weeks postoperatively for DVT prophylaxis. Wound VAC will be switched over to his home unit. If he has 2 consecutive dry dressing changes we can discontinue the use of the wound VAC with home health. Communication was placed by the wound VAC nurse. Infectious disease will be ordering lab work and this will include the CBC with which medicine would like repeat in 1 week. Patient will follow-up per postop instructions with [facility]. Patient will contact her office with any complications. I have reviewed the [place] Automated Rx Reporting System (OARRS) report for this patient for refill pattern and other prescriber involvement as part of the appropriate surveillance for the provision of acute and chronic controlled medications. The report was requested and reviewed on the date of this entry and was considered in the prescribing process.
--- NOTE | 2019-10-16 11:36 | DCINST_ITS ---
Discharge Diet: No Restrictions Discharge Activity: May Not Drive - while taking narcotic pain medications. Ice area for (Minutes): 20 - Every 1 to 2 hours as needed Weight Bearing Status: Weight bearing as tolerated - With walker. Continue posterior hip dislocation precautions 3 months postoperatively Elevate: Operative Extremity Additional Activity Instructions:: Wear elastic stockings for 2 weeks. DO NOT use alcohol with narcotic pain medication. DO NOT make important decisions while taking narcotic medication. If you have problems with taking your medication (rash, itching, nausea, etc.) call the office at once. Call your doctor if your incision/area has: Increased Pain/ Swelling, Increased Redness, Foul Smelling Discharge Call your doctor if you observe: Fever of 101 or Higher Additional Instructions: Continue with home wound VAC unit with assistance from home health. Changes on Saturday and Fridays. If patient has 2 consecutive dry dressing changes may discontinue the use of the wound VAC unit. Continue Tylenol for primary pain control. Continue with aspirin 81 mg twice daily for 4 weeks postoperatively for DVT prophylaxis. Antibiotics: Continue recommendations per infectious disease with regards to antibiotic. Lab work: Will require 1 week follow-up lab work including a CBC Allergies/Adverse Reactions: Allergies apple Allergy (Verified 10/13/19 08:25) Rash Penicillins [PCN] Allergy (Verified 10/13/19 08:25) Rash Medications to take at Discharge Nystatin Powder [Mycostatin Powder] 1 applic TOPICAL 0600,2200 06/24/19 Amiodarone HCl 200 mg PO DAILY@0800 #30 tab 10/07/19 Aspirin [Aspirin, Baby] 81 mg PO BIDCM #30 tab.chew 10/07/19 Famotidine [Pepcid] 20 mg PO DAILY #30 tab 10/07/19 Fluconazole [Diflucan] 200 mg PO DAILY #3 tab 10/07/19 Iron Polysaccharide Complex [Ferrex 150] 150 mg PO DAILYCM #30 cap 10/07/19 Linezolid [Zyvox] 600 mg PO BID #6 tab 10/07/19 Pantoprazole Sodium [Protonix] 20 mg PO DAILY #30 tab 10/07/19 Polyethylene Glycol 3350 [Miralax] 17 gm PO DAILY PRN PRN #30 packet 10/07/19 Acetaminophen [Tylenol] 1,000 mg PO Q8 14 Days tab 10/16/19 Primary Care Physician: Christos Golden [Primary Care Provider] - Please follow up with your Primary Care Physician in: follow up with PCP in 1-2 weeks Test Results: Test results from this visit will be discussed in further detail at your follow- up appointment, if applicable. Please Follow Up With: Richard Call PA-C When: 10/28/19 @ 10:00 am Please Follow Up With: Christiano Bonilla MD When: will require 2 week follow up. needs repeat CBC 1 week
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
[2019-10-16 14:00] VITALS: BP 128/73; PULSE 74; RESP 18; TEMP 36.7; O2SAT 96
--- NOTE | 2019-10-16 14:29 | PN.ID_ITS ---
Subjective: Feeling well, home today, no fever, no n/v/d - Physical Exam Vitals/I&O's: Vital Signs Temp Pulse Resp BP Pulse Ox 97.8 F 74 18 125/53 H 96 10/16/19 08:19 10/16/19 08:19 10/16/19 08:19 10/16/19 08:19 10/16/19 08:19 Oxygen Flow Rate (L/min) 6 Oxygen Delivery Method Room Air Weight: 108.862 kg Body Mass Index (BMI) 30.8 Intake and Output for Last 24 Hours 10/14/19 10/15/19 10/16/19 23:59 23:59 23:59 Intake Total 2086.0 / 2086.0 1120 / 1420 840 / 840 Output Total 1300 / 1300 860 / 1310 2100 / 2100 Balance 786.0 / 786.0 260 / 110 -1260 / -1260 General: Alert, Cooperative, No apparent distress Lungs: Clear to auscultation, Normal air movement Cardiovascular: Regular rate, Regular Rhythm Abdomen: Soft, Non Tender, Non-Distended Skin: No rashes Microbiology Past 72 Hours 10/13/19 12:40 Tissue - Hip Gram Stain - Final 10/13/19 12:40 Tissue - Hip Wound Culture - Preliminary No growth-Final to follow 10/13/19 12:40 Tissue - Hip Anaerobic Culture - Preliminary No growth in 48 hours. 10/13/19 12:40 Tissue - Hip Gram Stain - Final 10/13/19 12:40 Tissue - Hip Wound Culture - Preliminary No growth-Final to follow 10/13/19 12:40 Tissue - Hip Anaerobic Culture - Preliminary No growth in 48 hours. 10/13/19 12:40 Tissue - Hip Gram Stain - Final 10/13/19 12:40 Tissue - Hip Wound Culture - Preliminary No growth-Final to follow 10/13/19 12:40 Tissue - Hip Anaerobic Culture - Preliminary No growth in 48 hours. Laboratory Results 10/15/19 04:26: WBC 10.0, RBC 2.15 L, Hgb 6.5 L, Hct 20.5 L, MCV 95.3 H, MCH 30.2, MCHC 31.7 L, RDW Std Deviation 50.2 H, RDW Coeff of Morenita 14.9 H, Plt Count 266, MPV 9.6 10/15/19 08:25: Blood Type O POSITIVE, Antibody Screen NEGATIVE, Crossmatch See Detail 10/16/19 05:28: WBC 6.6, RBC 2.68 L, Hgb 8.1 L, Hct 24.8 L, MCV 92.5, MCH 30.2, MCHC 32.7, RDW Std Deviation 53.1 H, RDW Coeff of Morenita 17.2 H, Plt Count 248, MPV 9.0 Current Medications Acetaminophen (Tylenol) 1,000 mg PO Q8 [facility] Last Admin: 10/16/19 14:07 Dose: 1,000 mg Documented by: Amiodarone HCl (Cordarone) 200 mg PO DAILY@0800 [facility] Last Admin: 10/16/19 08:22 Dose: 200 mg Documented by: [facility], [facility]) [facility] Last Admin: 10/16/19 08:22 Dose: 81 mg Documented by: Enteral Nutritional Formula (Ensure Surgery) 237 ml PO TIDCM [facility] Last Admin: 10/16/19 13:00 Dose: 237 ml Documented by: Famotidine (Pepcid) 20 mg PO DAILY [facility] Last Admin: 10/16/19 08:22 Dose: 20 mg Documented by: Fluconazole (Diflucan) 200 mg PO DAILY [facility] Last Admin: 10/16/19 08:22 Dose: 200 mg Documented by: Insulin Human Lispro (Humalog Kwikpen (Bkc)) 1 - 6 unit SC Q4H PRN PRN; Protocol PRN Reason: BG>/= 180, SEE PROTOCOL Linezolid (Zyvox) 600 mg PO BID [facility] Last Admin: 10/16/19 08:22 Dose: 600 mg Documented by: Morphine Sulfate () 2 - 4 mg IV Q2H PRN PRN PRN Reason: Pain Score 4-10/10 Nutritional Formula (Leon - Secor Flavor) [facility] Last Admin: 10/16/19 08:22 Dose: 1 packet Documented by: Ondansetron HCl (Zofran) 4 mg IV Q8H PRN PRN PRN Reason: NAUSEA Last Admin: 10/13/19 17:07 Dose: 4 mg Documented by: Oxycodone HCl (Oxyir) 5 mg PO Q4H PRN PRN PRN Reason: Pain Score 6-10/10 Pantoprazole Sodium (Protonix) 20 mg PO DAILY [facility] Last Admin: 10/16/19 08:22 Dose: 20 mg Documented by: Polyethylene Glycol (Miralax) 17 gm PO DAILY PRN PRN PRN Reason: Constipation Polysaccharide Iron Complex (Ferrex 150) 150 mg PO DAILYCM COUNT [facility]CLUD[facility] Last Admin: 10/16/19 08:23 Dose: 150 mg Documented by: Promethazine HCl (Phenergan) 12.5 mg IM Q6H PRN PRN; Protocol PRN Reason: NAUSEA/VOMITING Senna/Docusate Sodium (Senokot-S, Herminia-Colace) 2 tablet PO BID [facility] Last Admin: 10/16/19 08:22 Dose: 2 tablet Documented by: Sodium Chloride () 10 - 40 ml IV UD PRN PRN Reason: SALINE FLUSH Last Admin: 10/13/19 17:08 Dose: 10 ml Documented by: Medical Necessity - Tobacco Use Smoking Status: Never smoker Route of nutrition/ use of supplements: [] Nutritional Intake: [] IV Site: [] Powell Catheter: [] - Assessment/Plan Antibiotics: [] Assessment/Plan: [] 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 Taken back to OR 10/13/[address] Collado. Components replaced. Surg cxs neg so far. Cont linezolid and fluc. Limited options for mcc therapy. Courses of linezolid over 2 weeks will need weekly monitoring of cbc, every other week bmp and LFT. Wrote rx for abx and labs. Micro lab to hold urg cxs for 2 weeks. Will follow, d/w case management rn. ID followup in 2 weeks.
== END 2019-10-16 15:00 | disposition home health service (06) | DRG 468 ==
LOC: PCU 12:56 → SDC 10-14 08:51
PROVIDERS: Admitting Provider Specialist; PCP Internal Medicine; Referring Provider Specialist; Visit Provider Family Medicine
PROC: 0SRB0JZ Replacement of Left Hip Joint with Synthetic Substitute, Open Approach (ICD-10-PCS; CPT 27130; principal; 2019-10-13 11:35)
DX: M97.02XA 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, initial encounter (principal); T84.52XA Infection and inflammatory reaction due to internal left hip prosthesis, initial encounter; Z96.642 Presence of left artificial hip joint; I48.0 Paroxysmal atrial fibrillation; K21.9 Gastro-esophageal reflux disease without esophagitis; I10 Essential (primary) hypertension; D50.9 Iron deficiency anemia, unspecified; E78.00 Pure hypercholesterolemia, unspecified; Z86.718 Personal history of other venous thrombosis and embolism; Y83.1 Surgical operation with implant of artificial internal device as the cause of abnormal reaction of the patient, or of later complication, without mention of misadventure at the time of the procedure; M19.071 Primary osteoarthritis, right ankle and foot
CPT/HCPCS: 36415; 80048; 82962; 85027; 86850; 86900; 86901; 86920; 86922; 87015; 87070; 87075; 87102; 87116; 87176; 87205; 87206; 97110; 97116; 97162; 97166; 97535; 97802; 99251; C1776; J7040; J7120; P9016; A4216; G0463; J2405

== ENCOUNTER → 2019-10-27 | Outpatient (CLI) | payer MEDICARE, SELFPAY ==
[2019-10-13 16:47] VITALS: BMI 30.8
[2019-10-27 11:25] LABS: Erythrocyte Sedimentation Rate 45 mm/hr (0-20)
[2019-10-27 11:27] LABS: AST(SGOT) 9 U/L (15-37); Alanine Aminotransfer ALT/SGPT 13 U/L (16-61); Alkaline Phosphatase 92 U/L (45-117); Anion Gap 7 (5-15); BUN 17 mg/dL (7-18); Bilirubin, Direct 0.11 mg/dL (0.00-0.30); Chloride 108 mmol/L (98-107); Creatinine, Serum 0.89 mg/dL (0.70-1.30); EST Glomerular Filtration Rate 86 mL/min (>60); Est Glom Filt Rate - Afr Amer 105 mL/min (>60); Globulin 3.8 g/dL (2.2-4.2); Glucose 105 mg/dL (74-106); Potassium 4.1 mmol/L (3.5-5.1); Protein, Total 6.8 g/dL (6.4-8.2); Sodium Level 139 mmol/L (136-145)
== END | disposition home or self-care (01) ==
LOC: LABSPEC 10:49
PROVIDERS: PCP Internal Medicine; Referring Provider Internal Medicine Infectious Disease; Visit Provider Internal Medicine Infectious Disease
DX: T84.52XA Infection and inflammatory reaction due to internal left hip prosthesis, initial encounter (principal)
CPT/HCPCS: 80048; 80076; 85652

== ENCOUNTER 2019-11-08 16:08 | Outpatient (RCR) | payer MEDICARE, SELFPAY ==
[2019-10-13 16:47] VITALS: BMI 30.8
[2019-10-20 16:27] LABS: Absolute Lymphocyte Count 0.86 X10^3/uL (0.83-4.51); Absolute Neutrophil Count 14.1 X10^3/uL (2.0-7.7); Basophil# 0.06 X10^3/uL; Basophil% 0.4 % (0-1); Eosinophil# 0.37 X10^3/uL; Eosinophils% 2.2 % (0-5); Hematocrit 32.5 % (40-54); Lymphocyte # 0.86 X10^3/ul (4.0); Lymphocyte % 5.1 % (19-41); Mean Corp Hgb Conc 30.8 g/dL (32-36); Mean Corpuscular Hgb 30.5 pg (27.0-32.0); Mean Corpuscular Volume 99.1 fL (80-94); Mean Platelet Vol. 9.5 fl (6.2-12.0); Monocyte# 1.39 X10^3/uL; Monocyte% 8.2 % (0-10); NRBC Flagged by Analyzer 0 % (0-5); Neutrophil # 14.12 X10^3/uL (2.7-7.7); Neutrophil % 83.5 % (47-70); Platelet Count 281 K/mm3 (150-450); RBC Distribution Width CV 18.8 % (11.6-14.6); RBC Distribution Width SD 63.5 fl (35.1-43.9); Red Blood Count 3.28 M/mm3 (4.6-6.2); White Blood Count 16.9 K/mm3 (4.4-11.0)
[2019-11-03 18:08] LABS: Absolute Lymphocyte Count 1.16 X10^3/uL (0.83-4.51); Absolute Neutrophil Count 9.9 X10^3/uL (2.0-7.7); Basophil# 0.06 X10^3/uL; Basophil% 0.5 % (0-1); Eosinophil# 0.25 X10^3/uL; Hemoglobin 9.2 g/dL (13.0-16.5); Lymphocyte # 1.16 X10^3/ul (4.0); Lymphocyte % 9.3 % (19-41); Mean Corp Hgb Conc 30.7 g/dL (32-36); Mean Corpuscular Hgb 30.1 pg (27.0-32.0); Mean Platelet Vol. 9.1 fl (6.2-12.0); Monocyte# 0.97 X10^3/uL; Monocyte% 7.8 % (0-10); NRBC Flagged by Analyzer 0 % (0-5); Neutrophil # 9.89 X10^3/uL (2.7-7.7); Neutrophil % 79.2 % (47-70); POSITIVE MORPHOLOGY YES; Platelet Count 497 K/mm3 (150-450); RBC Distribution Width CV 18.2 % (11.6-14.6); RBC Distribution Width SD 65.5 fl (35.1-43.9); Red Blood Count 3.06 M/mm3 (4.6-6.2); White Blood Count 12.5 K/mm3 (4.4-11.0)
[2019-11-03 18:10] LABS: Differential Indicated SCAN CRITERIA MET
[2019-11-03 18:51] LABS: Platelet Estimate ADEQUATE (ADEQ)
[2019-11-03 18:52] LABS: Anisocytosis 1+; Hypochromasia 1+; Macrocytosis 1+; Polychromasia RARE; Red Cell Morphology N CHROM NORMAL (NORM C&C)
== END 2019-11-12 18:00 | disposition home or self-care (01) ==
LOC: HHLAB 16:08
PROVIDERS: PCP Internal Medicine; Referring Provider Internal Medicine Infectious Disease; Visit Provider Internal Medicine Infectious Disease
DX: T84.52XA Infection and inflammatory reaction due to internal left hip prosthesis, initial encounter (principal); Z48.01 Encounter for change or removal of surgical wound dressing
CPT/HCPCS: 85025

== ENCOUNTER → 2019-11-08 16:08 | Outpatient (CLI) | payer MEDICARE, SELFPAY ==
[2019-10-13 16:47] VITALS: BMI 30.8
[2019-11-08 16:21] LABS: Absolute Lymphocyte Count 1.43 X10^3/uL (0.83-4.51); Basophil# 0.06 X10^3/uL; Basophil% 0.7 % (0-1); Eosinophil# 0.31 X10^3/uL; Eosinophils% 3.5 % (0-5); Hematocrit 28.7 % (40-54); Hemoglobin 8.9 g/dL (13.0-16.5); Lymphocyte # 1.43 X10^3/ul (4.0); Mean Corpuscular Hgb 30.3 pg (27.0-32.0); Mean Corpuscular Volume 97.6 fL (80-94); Mean Platelet Vol. 8.6 fl (6.2-12.0); Monocyte# 0.99 X10^3/uL; Monocyte% 11.1 % (0-10); NRBC Flagged by Analyzer 0 % (0-5); Neutrophil # 6.01 X10^3/uL (2.7-7.7); Neutrophil % 67.2 % (47-70); Platelet Count 530 K/mm3 (150-450); RBC Distribution Width CV 17.9 % (11.6-14.6); RBC Distribution Width SD 63.7 fl (35.1-43.9); Red Blood Count 2.94 M/mm3 (4.6-6.2); White Blood Count 8.9 K/mm3 (4.4-11.0)
[2019-11-08 16:57] LABS: AST(SGOT) 11 U/L (15-37); Alanine Aminotransfer ALT/SGPT 15 U/L (16-61); Albumin, Serum 2.9 g/dL (3.2-5.0); Alkaline Phosphatase 101 U/L (45-117); Globulin 4.6 g/dL (2.2-4.2); Protein, Total 7.5 g/dL (6.4-8.2)
[2019-11-09 15:05] LABS: Erythrocyte Sedimentation Rate 57 mm/hr (0-20)
== END ==
PROVIDERS: Visit Provider Internal Medicine Infectious Disease
DX: T84.52XA Infection and inflammatory reaction due to internal left hip prosthesis, initial encounter (principal)
CPT/HCPCS: 80076; 85025; 85652

== ENCOUNTER → 2019-11-16 | Outpatient (CLI) | payer MEDICARE, SELFPAY ==
[2019-10-13 16:47] VITALS: BMI 30.8
[2019-11-16 14:26] LABS: Absolute Lymphocyte Count 1.28 X10^3/uL (0.83-4.51); Basophil# 0.07 X10^3/uL; Basophil% 0.9 % (0-1); Eosinophils% 3.8 % (0-5); Hematocrit 29.4 % (40-54); Hemoglobin 9.2 g/dL (13.0-16.5); Lymphocyte # 1.28 X10^3/ul (4.0); Lymphocyte % 16.3 % (19-41); Mean Corp Hgb Conc 31.3 g/dL (32-36); Mean Corpuscular Hgb 30.2 pg (27.0-32.0); Mean Corpuscular Volume 96.4 fL (80-94); Mean Platelet Vol. 9.1 fl (6.2-12.0); Monocyte# 1.15 X10^3/uL; Monocyte% 14.6 % (0-10); NRBC Flagged by Analyzer 0 % (0-5); Neutrophil # 4.97 X10^3/uL (2.7-7.7); Neutrophil % 63.4 % (47-70); Platelet Count 351 K/mm3 (150-450); RBC Distribution Width CV 17.2 % (11.6-14.6); RBC Distribution Width SD 59.9 fl (35.1-43.9); Red Blood Count 3.05 M/mm3 (4.6-6.2); White Blood Count 7.9 K/mm3 (4.4-11.0)
[2019-11-16 14:56] LABS: AST(SGOT) 12 U/L (15-37); Alanine Aminotransfer ALT/SGPT 16 U/L (16-61); Albumin, Serum 2.9 g/dL (3.2-5.0); Alkaline Phosphatase 98 U/L (45-117); Anion Gap 5 (5-15); BUN 17 mg/dL (7-18); Bilirubin, Direct 0.09 mg/dL (0.00-0.30); Calcium,Total 9.2 mg/dL (8.5-10.1); Chloride 105 mmol/L (98-107); Creatinine, Serum 0.85 mg/dL (0.70-1.30); EST Glomerular Filtration Rate 92 mL/min (>60); Erythrocyte Sedimentation Rate 53 mm/hr (0-20); Est Glom Filt Rate - Afr Amer 111 mL/min (>60); Globulin 4.7 g/dL (2.2-4.2); Glucose 117 mg/dL (74-106); Potassium 4.2 mmol/L (3.5-5.1); Protein, Total 7.6 g/dL (6.4-8.2); Sodium Level 135 mmol/L (136-145)
== END | disposition home or self-care (01) ==
LOC: LABSPEC 14:07
PROVIDERS: PCP Internal Medicine; Visit Provider Internal Medicine Infectious Disease
DX: T84.52XA Infection and inflammatory reaction due to internal left hip prosthesis, initial encounter (principal)
CPT/HCPCS: 80048; 80076; 85025; 85652; 87070; 87075; 87205

== ENCOUNTER 2019-12-02 13:21 | Outpatient (RCR) | payer MEDICARE, SELFPAY ==
[2019-10-13 16:47] VITALS: BMI 30.8
[2019-11-23 12:53] LABS: Absolute Lymphocyte Count 1.72 X10^3/uL (0.83-4.51); Absolute Neutrophil Count 5.1 X10^3/uL (2.0-7.7); Basophil# 0.11 X10^3/uL; Basophil% 1.3 % (0-1); Eosinophil# 0.49 X10^3/uL; Eosinophils% 5.7 % (0-5); Hemoglobin 9.9 g/dL (13.0-16.5); Lymphocyte # 1.72 X10^3/ul (4.0); Mean Corp Hgb Conc 31.9 g/dL (32-36); Mean Corpuscular Hgb 30.4 pg (27.0-32.0); Mean Corpuscular Volume 95.1 fL (80-94); Mean Platelet Vol. 9.2 fl (6.2-12.0); Monocyte% 11.6 % (0-10); NRBC Flagged by Analyzer 0 % (0-5); Neutrophil # 5.14 X10^3/uL (2.7-7.7); Neutrophil % 59.9 % (47-70); Platelet Count 419 K/mm3 (150-450); RBC Distribution Width SD 58.9 fl (35.1-43.9); Red Blood Count 3.26 M/mm3 (4.6-6.2); White Blood Count 8.6 K/mm3 (4.4-11.0)
[2019-11-30 15:54] LABS: AST(SGOT) 10 U/L (15-37); Alanine Aminotransfer ALT/SGPT 13 U/L (16-61); Albumin, Serum 3.1 g/dL (3.2-5.0); Alkaline Phosphatase 98 U/L (45-117); Anion Gap 8 (5-15); BUN 28 mg/dL (7-18); BUN/Creat Ratio 23.5 RATIO (10-20); Bilirubin, Direct 0.07 mg/dL (0.00-0.30); Calcium,Total 9.3 mg/dL (8.5-10.1); Chloride 104 mmol/L (98-107); Creatinine, Serum 1.19 mg/dL (0.70-1.30); EST Glomerular Filtration Rate 62 mL/min (>60); Est Glom Filt Rate - Afr Amer 75 mL/min (>60); Globulin 4.5 g/dL (2.2-4.2); Glucose 87 mg/dL (74-106); Potassium 4.8 mmol/L (3.5-5.1); Protein, Total 7.6 g/dL (6.4-8.2); Sodium Level 136 mmol/L (136-145)
[2019-11-30 16:16] LABS: Erythrocyte Sedimentation Rate 56 mm/hr (0-20)
[2019-12-02 13:54] LABS: Absolute Neutrophil Count 3.8 X10^3/uL (2.0-7.7); Basophil# 0.06 X10^3/uL; Eosinophil# 0.33 X10^3/uL; Eosinophils% 5.3 % (0-5); Hematocrit 27.9 % (40-54); Hemoglobin 8.9 g/dL (13.0-16.5); Lymphocyte % 17.7 % (19-41); Mean Corp Hgb Conc 31.9 g/dL (32-36); Mean Corpuscular Hgb 30.2 pg (27.0-32.0); Mean Corpuscular Volume 94.6 fL (80-94); Mean Platelet Vol. 9.7 fl (6.2-12.0); Monocyte# 0.83 X10^3/uL; Monocyte% 13.4 % (0-10); NRBC Flagged by Analyzer 0 % (0-5); Neutrophil # 3.84 X10^3/uL (2.7-7.7); POSITIVE COUNT YES; Platelet Count 247 K/mm3 (150-450); RBC Distribution Width CV 17.2 % (11.6-14.6); Red Blood Count 2.95 M/mm3 (4.6-6.2); White Blood Count 6.2 K/mm3 (4.4-11.0)
[2019-12-02 13:55] LABS: Differential Indicated SCAN CRITERIA MET
[2019-12-02 14:33] LABS: Platelet Estimate ADEQUATE (ADEQ)
[2019-12-02 14:34] LABS: Anisocytosis 1+; Red Cell Morphology N CHROM NORMAL (NORM C&C)
== END 2019-12-02 18:00 | disposition home or self-care (01) ==
LOC: HHLAB 13:21
PROVIDERS: PCP Internal Medicine; Referring Provider Internal Medicine Infectious Disease; Visit Provider Internal Medicine Infectious Disease
DX: T84.52XA Infection and inflammatory reaction due to internal left hip prosthesis, initial encounter (principal)
CPT/HCPCS: 80048; 80076; 85025; 85652; 87070; 87075; 87077; 87205

== ENCOUNTER → 2019-12-08 17:24 | Outpatient (CLI) | payer MEDICARE, SELFPAY ==
[2019-12-04 13:46] VITALS: BMI 29.6
[2019-12-08 17:47] LABS: Absolute Lymphocyte Count 1.57 X10^3/uL (0.83-4.51); Absolute Neutrophil Count 4.1 X10^3/uL (2.0-7.7); Basophil# 0.07 X10^3/uL; Eosinophil# 0.44 X10^3/uL; Eosinophils% 6.2 % (0-5); Hematocrit 29.7 % (40-54); Hemoglobin 9.2 g/dL (13.0-16.5); Lymphocyte # 1.57 X10^3/ul (4.0); Lymphocyte % 22.1 % (19-41); Mean Corpuscular Hgb 29.6 pg (27.0-32.0); Mean Corpuscular Volume 95.5 fL (80-94); Mean Platelet Vol. 9.4 fl (6.2-12.0); Monocyte# 0.89 X10^3/uL; Monocyte% 12.5 % (0-10); NRBC Flagged by Analyzer 0.3 % (0-5); Neutrophil # 4.11 X10^3/uL (2.7-7.7); Neutrophil % 57.8 % (47-70); Platelet Count 299 K/mm3 (150-450); RBC Distribution Width CV 17.1 % (11.6-14.6); RBC Distribution Width SD 59.8 fl (35.1-43.9); Red Blood Count 3.11 M/mm3 (4.6-6.2); White Blood Count 7.1 K/mm3 (4.4-11.0)
== END ==
LOC: LABSPEC 17:24 → HHLAB 17:26
PROVIDERS: PCP Internal Medicine; Referring Provider Internal Medicine Infectious Disease; Visit Provider Internal Medicine Infectious Disease
DX: T84.52XA Infection and inflammatory reaction due to internal left hip prosthesis, initial encounter (principal)
CPT/HCPCS: 85025

== ENCOUNTER 2019-12-11 11:30 | Outpatient (RCR) | payer MEDICARE, SELFPAY ==
[2019-10-13 16:47] VITALS: BMI 30.8
[2019-12-04 13:46] VITALS: BP 127/82; PULSE 75; RESP 16; TEMP 36.5; BMI 29.6
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
--- NOTE | 2019-12-09 13:48 | WC ---
Contacted patients insurance to preauthorize a lower extremity ordered by Dr Ingram. Case was referred to a peer review by Gena Araiza and should receive a faxed approval or denial within 2 days. Case #[id number]
[2019-12-11 12:16] VITALS: BP 135/62; PULSE 74; RESP 16; TEMP 36.1; BMI 29.6
--- NOTE | 2019-12-11 15:47 | WC ---
Called patient and left concerning order from [facility]. Julieta, our rep from [place], instructed this nurse to inform them their order will be shipped overnight and if not received by tomorrow at the latest, they were given her direct number and they were instructed to call her. Julieta said that even though we received a fax confirmation, it is only to verify that it was faxed but not verify they received it.
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
--- NOTE | 2019-12-14 09:55 | WC ---
Spoke with rep nadine Olivier to inquire about preauthorization for ordered CT scan with contrast. Order being denied due to an open authorization of a CT without contrast ordered in July and is good until January which has not yet been performed. Will contact Dr Collado's office to inquire and if so, will notify patient with instructions to schedule test. Mal - [phone] case # [id number]
--- NOTE | 2019-12-14 10:18 | WC ---
Spoke with Marino for the second time today, as well as on Saturday to inquire about patients order which has yet not been received. Marino stated that the order did not go out on Saturday as promised and that it would be going out today and patient should receive it tomorrow- 12/15/2019. Called patient to forward information.
== END 2019-12-13 23:59 ==
LOC: WC 11:30
PROVIDERS: PCP Internal Medicine; Visit Provider Family Medicine
DX: T81.31XA Disruption of external operation (surgical) wound, not elsewhere classified, initial encounter (principal); T84.52XA Infection and inflammatory reaction due to internal left hip prosthesis, initial encounter; Y83.8 Other surgical procedures as the cause of abnormal reaction of the patient, or of later complication, without mention of misadventure at the time of the procedure; Z86.718 Personal history of other venous thrombosis and embolism; K21.9 Gastro-esophageal reflux disease without esophagitis; I48.20 Chronic atrial fibrillation, unspecified; I10 Essential (primary) hypertension; M19.90 Unspecified osteoarthritis, unspecified site; Z79.82 Long term (current) use of aspirin; Z79.899 Other long term (current) drug therapy
CPT/HCPCS: 11043; 11045; 99214; G0463

== ENCOUNTER → 2019-12-18 14:39 | Outpatient (CLI) | payer MEDICARE, SELFPAY ==
[2019-12-11 12:16] VITALS: BMI 29.6
[2019-12-18 12:56] VITALS: BMI 29.6
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
== END ==
PROVIDERS: PCP Internal Medicine; Referring Provider Specialist; Visit Provider Specialist
DX: T81.89XD Other complications of procedures, not elsewhere classified, subsequent encounter (principal); T84.52XA Infection and inflammatory reaction due to internal left hip prosthesis, initial encounter; Y83.8 Other surgical procedures as the cause of abnormal reaction of the patient, or of later complication, without mention of misadventure at the time of the procedure; S70.02XD Contusion of left hip, subsequent encounter; V49.9XXD Car occupant (driver) (passenger) injured in unspecified traffic accident, subsequent encounter; L03.116 Cellulitis of left lower limb; Z86.14 Personal history of Methicillin resistant Staphylococcus aureus infection; Z86.718 Personal history of other venous thrombosis and embolism; I48.0 Paroxysmal atrial fibrillation; M19.90 Unspecified osteoarthritis, unspecified site; I10 Essential (primary) hypertension; K21.9 Gastro-esophageal reflux disease without esophagitis; Z79.899 Other long term (current) drug therapy; Z79.82 Long term (current) use of aspirin; M97.02XD 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, subsequent encounter
CPT/HCPCS: 11042; 73700

== ENCOUNTER 2019-12-29 14:19 | Inpatient (IN) | payer MEDICARE, SELFPAY ==
[2019-12-28 10:26] VITALS: BMI 29.6
[2019-12-29] VITALS (12 sets, daily range): BP systolic 106–147; BP diastolic 52–76; PULSE 70–77; RESP 16–18; TEMP 36.3–36.8; O2SAT 85–100; BMI 31.2; BMI 30.8
[2019-12-29 08:03] LABS: Probe Check PASS; Specimen Processing Control PASS
[2019-12-29] MEDS: Lactated Ringers 1,000 ML 100 ML IV ×2 (11:35→16:05)
--- NOTE | 2019-12-29 12:30 | SOF_PTH ---
PATIENT: IAN BAZAN LOC: [facility] U#:[id number] AGE/SX: 84/M ROOM: MA324 RE12/30/[address]: Dr. Kevin Low MD : [id number] BED: 1 DIS: 01/01/2020 SPEC #: [id number] RECD: 12/29/19 15:13 STATUS: SOUJudie REQ #: [id number] HALIMA: 12/29/19 12:[address]: Kevin Low DEPT: SURGICAL PATHOLOGY RECD BY: Russell Lundy ENTERED: 12/30/19 09:00 SP TYPE: SOFT TISS OTHR DR: Dr. Christos Golden MD Tissues: A - Thigh, NOS B - Femur, NOS Procedures: Decalcification bone/plaque Surgery Specimen Level IV HEADER OPERATION: Debridement lateral thigh wound, partial ostectomy PRE-OP DIAGNOSIS: Nonhealing scar left lateral thigh; periprosthetic fracture around implant left hip TISSUE SUBMITTED: A - Debrided soft tissue left lateral thigh wound, B - Bone left femur MICROSCOPIC DIAGNOSIS A. Skin and soft tissue of left lateral thigh, biopsy: Ulceration with associated acute and chronic inflammation and granulation. B. Left femur bone, biopsy: Chronic change with focal osteonecrosis. No evidence of osteomyelitis. AM:sonu 01/04/20 MICROSCOPIC DESCRIPTION Slides are reviewed. GROSS DESCRIPTION A - Received in fixative is one container labeled with the patient's name and designated soft tissue left lateral thigh wound. The specimen consists of multiple pieces of skin and soft tissue that in aggregate measure 11 x 6 x 2 cm. The skin surface shows a focal area of ulceration. [facility] sections are submitted in two cassettes. B - Received in fixative is one container labeled with the patient's name and designated bone left femur. The specimen consists of multiple fragments of bone that in aggregate measure 2 x 1.5 x 0.3 cm. The entire specimen is submitted in one cassette after decalcification. / SJ:sonu 12/30/19 TC:2 CPT: 03398 x2, 01052
[2019-12-29] MEDS: Linezolid 600 MG 600 MG/300 ML BAG 200 MG IV ×2 (13:14→21:55)
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
[2019-12-29] MEDS: Aspirin 81 MG TAB.CHEW PO (17:39)
[2019-12-29] MEDS: Acetaminophen 325 MG Tablet 650 MG PO (20:21)
[2019-12-29] MEDS: Docusate Sodium 100 MG Capsule PO (21:52)
[2019-12-30] VITALS (12 sets, daily range): BP systolic 108–125; BP diastolic 53–76; PULSE 68–94; RESP 16–18; TEMP 36.4–37.1; O2SAT 96–100
[2019-12-30] MEDS: Lactated Ringers 1,000 ML 100 ML IV (03:11)
[2019-12-30] MEDS: Enoxaparin 40 MG/0.4 ML Syringe SC (05:34)
[2019-12-30 06:31] LABS: Hematocrit 17.9 % (40-54); Mean Corp Hgb Conc 30.7 g/dL (32-36); Mean Corpuscular Hgb 29.4 pg (27.0-32.0); Mean Corpuscular Volume 95.7 fL (80-94); Mean Platelet Vol. 9.9 fl (6.2-12.0); POSITIVE COUNT YES; Platelet Count 225 K/mm3 (150-450); RBC Distribution Width CV 17.5 % (11.6-14.6); RBC Distribution Width SD 61.1 fl (35.1-43.9); Red Blood Count 1.87 M/mm3 (4.6-6.2); White Blood Count 4.5 K/mm3 (4.4-11.0)
[2019-12-30 06:42] LABS: Erythrocyte Sedimentation Rate 15 mm/hr (0-20)
[2019-12-30 06:44] LABS: Hemoglobin 5.5 g/dL (13.0-16.5)
[2019-12-30 07:06] LABS: Differential Comment SCANNED; Scan Indicated on CBC? Y/N YES- FLAGS NOTED
[2019-12-30 07:10] LABS: ALB/GLOB Ratio 0.8 RATIO (0.9-2.4); AST(SGOT) 10 U/L (15-37); Alanine Aminotransfer ALT/SGPT 15 U/L (16-61); Albumin, Serum 2.8 g/dL (3.2-5.0); Alkaline Phosphatase 76 U/L (45-117); Anion Gap 8 (5-15); BUN 29 mg/dL (7-18); BUN/Creat Ratio 27.9 RATIO (10-20); Calcium,Total 8.6 mg/dL (8.5-10.1); Chloride 107 mmol/L (98-107); Creatinine, Serum 1.04 mg/dL (0.70-1.30); EST Glomerular Filtration Rate 72 mL/min (>60); Est Glom Filt Rate - Afr Amer 88 mL/min (>60); Estimated Creatinine Clearance 62.57 ml/min; Globulin 3.4 g/dL (2.2-4.2); Glucose 118 mg/dL (74-106); Potassium 5.1 mmol/L (3.5-5.1); Prealbumin 27.3 mg/dL (20.0-40.0); Protein, Total 6.2 g/dL (6.4-8.2); Sodium Level 138 mmol/L (136-145)
--- NOTE | 2019-12-30 08:50 | NURSING ---
wound photo: left lateral thigh
[2019-12-30] MEDS: Meloxicam 7.5 MG Tablet PO (10:22)
[2019-12-30] MEDS: Amiodarone 200 MG Tablet PO (10:22)
[2019-12-30] MEDS: Pantoprazole Sodium 40 MG Tablet PO (10:22)
[2019-12-30] MEDS: Docusate Sodium 100 MG Capsule PO (10:22)
[2019-12-30] MEDS: Fluconazole 100 MG Tablet 200 MG PO (10:23)
[2019-12-30] MEDS: Linezolid 600 MG 600 MG/300 ML BAG 200 MG IV ×2 (10:27→21:58)
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
--- NOTE | 2019-12-30 14:15 | CASEMGMT ---
Addendum entered by Javan Watkins 12/30/19 15:44: Per Dr Bonilla, pt will not need IV atb's @ discharge. He states plans for pt to resume po atb's he was previously taking. Call placed to Julieta @ [facility] and she was notified of same. Original Note: RN CM ART LIBRARIAN CM to room to meet with patient for initial transition planning/care coordination assessment. RN PORFIRIO introduced self and role at [facility]. Pt voices understanding and consents to assessment at this time. Pt sitting up in W/C in room in no distress at this time. Pt is A/O at this time and answers all questions appropriately. Care providers, pharmacy, and demographics verified/updated at this time. PCP: Dr Golden Specialists: Dr Maurice, Dr Low @ [facility]: Yes Living Will/HPOA: Daughter, Katalina Hernandez LNOK: , daughter Living Arrangements: Lives w/ in 2-story home w/bed and bath on 1st floor. Ramp to enter home. assists [facility] ADL's Transportation: DME: States has the following DME: shower chair, raised toilet, walker, grab bars, W/C, lift chair. Pt states no need for further DME at this time. HHC/SNF: TCU. Pt is current w/[facility] HHC: SN only. Pt states he was getting therapy w/[facility] but he was discharged from therapy recently. Pt states does not feel that he needs therapy at this time. Pt made aware to talk with [facility] nurse if he does feel, at a later time, that he would benefit from therapy again. Pt voices understanding. Call placed to Julieta @ [facility]. She is aware pt is @ [facility] and now has a wound vac, which was placed today. She was made aware pt will most likely be discharged home tomorrow. Resumption order placed for HHC: SN. Pt wishes to return home and states has no concerns with going home at time of discharge. CM to follow for any further discharge planning/needs. Pt voices no further concerns/needs at this time. Advised pt to ask for CM if any further questions/concerns/needs arise. Voices understanding. PLAN: Home w/[facility] through [facility]: for wound vac care. Dr Bonilla has been consulted. Cultures pending. CM to follow for possibility of IV atb's needed @ d/c. Myron BSN RN CM
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
--- NOTE | 2019-12-30 17:18 | NURSING ---
called to room by livestock dealer pt up to wheel chair, noted wound vac draining linda red blood and leaking pooling onto wheelchair and gown. primary RN called to room. pt assisted to bed. Dr. Low paged by primary RN. wound vac removed. notable large clots. pressure held to distal posterior edge of incision drainage with pulsation noted. pressure held till slowed. wet to dry pressure dressing applied, pt positioned for pressure to site. aware dr. low on his way in. pharmacy called for silver nitrate sticks for at bedside. pt asympt.
[2019-12-30] MEDS: Acetaminophen 325 MG Tablet 650 MG PO ×2 (17:36→23:33)
--- NOTE | 2019-12-30 17:54 | PCM.PN.BLA ---
Progress Note Patient had a CT Abdomen and Pelvis today and when he came back to the floor, there was blood in the canister. The VAC was removed and a blood clot was present that was removed. Some bleeding was seen at the skin edge. About 250 ml of clot and bloody drainage in the canister was seen. Patient's vital signs were stable with no complaints of chest pain. An active subcutaneous bleeder was seen in the subcutaneous tissue on the posteroinferior skin flap area. It was easily controlled with silver nitrate chemical cauterization. No other active bleeding was seen. The wound was redressed with saline wet to dry dressing change. Will re-evaluate tomorrow for re-placement of the VAC. He is currently receiving his 2nd unit of PRBC. Will check a Hgb after that. Will probably need a 3rd unit based on his Hgb this morning of 5.5. STROKE Vital Signs/Narrative: Vital Signs Temp Pulse Resp BP Pulse Ox 12/30/19 15:47 97.9 F 68 18 114/76 100 12/30/19 15:36 97.9 F 68 18 114/76 100 12/30/19 14:36 97.8 F 94 16 115/58 L 99
[2019-12-30] MEDS: 0.9% Saline Lock 10 ML Syringe IV (21:53)
[2019-12-30 23:49] LABS: Hemoglobin 7.9 g/dL (13.0-16.5)
[2019-12-31] VITALS (10 sets, daily range): BP systolic 101–126; BP diastolic 48–72; PULSE 71–85; RESP 16–18; TEMP 36.4–37.2; O2SAT 95–100
[2019-12-31] MEDS: Lactated Ringers 1,000 ML 100 ML IV ×2 (00:09→13:52)
[2019-12-31] MEDS: Acetaminophen 325 MG Tablet 650 MG PO ×4 (05:32→20:11)
[2019-12-31 06:12] LABS: Hematocrit 22.4 % (40-54); Hemoglobin 7.1 g/dL (13.0-16.5); Mean Corp Hgb Conc 31.7 g/dL (32-36); Mean Corpuscular Hgb 29.7 pg (27.0-32.0); Mean Corpuscular Volume 93.7 fL (80-94); Mean Platelet Vol. 9.7 fl (6.2-12.0); Platelet Count 196 K/mm3 (150-450); RBC Distribution Width CV 16.9 % (11.6-14.6); RBC Distribution Width SD 57.6 fl (35.1-43.9); Red Blood Count 2.39 M/mm3 (4.6-6.2)
[2019-12-31 06:38] LABS: Anion Gap 10 (5-15); BUN 35 mg/dL (7-18); BUN/Creat Ratio 29.9 RATIO (10-20); Calcium,Total 8.6 mg/dL (8.5-10.1); Chloride 103 mmol/L (98-107); Creatinine, Serum 1.17 mg/dL (0.70-1.30); EST Glomerular Filtration Rate 63 mL/min (>60); Est Glom Filt Rate - Afr Amer 77 mL/min (>60); Estimated Creatinine Clearance 55.62 ml/min; Glucose 102 mg/dL (74-106); Potassium 5.1 mmol/L (3.5-5.1); Sodium Level 137 mmol/L (136-145)
[2019-12-31] MEDS: Pantoprazole Sodium 40 MG Tablet PO (08:16)
[2019-12-31] MEDS: Docusate Sodium 100 MG Capsule PO ×2 (08:16→22:10)
[2019-12-31] MEDS: Amiodarone 200 MG Tablet PO (08:16)
[2019-12-31] MEDS: Meloxicam 7.5 MG Tablet PO (08:16)
[2019-12-31] MEDS: Fluconazole 100 MG Tablet 200 MG PO (08:16)
[2019-12-31] MEDS: Linezolid 600 MG 600 MG/300 ML BAG 200 MG IV ×2 (10:02→22:11)
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
--- NOTE | 2019-12-31 14:59 | CHAPLAIN ---
Type of Pastoral Visit _x__ Initial Visit ___ Follow-up Visit ___ On-call Visit ___ General Patient Visit ___ Spiritual Assessment ___ Family Conference ___ Bereavement ___ Rapid Response ___ Code Blue ___ Other (describe below) Pastoral Care Referral From _x__ Patient ___ Family ___ Nurse ___ Physician ___ Technical Mgr ___ Pastry Wrapper ___ Other (describe below) Sacrament/Intervention _x__ Active listening ___ Anointing ___ Advent ___ Bereavement ___ Communion ___ Gissell exploration ___ ___ Life review _x__ Prayer ___ Reconciliation ___ Sacrament of Sick _x__ Supportive presence ___ Wedding ___ Other (describe below) Pastoral Comments
--- NOTE | 2019-12-31 15:00 | NURSING ---
nayeli notified and update given.
[2019-12-31] MEDS: Ondansetron 4 MG/2 ML Vial IV (17:22)
--- NOTE | 2019-12-31 17:23 | PCM.PN.ID ---
Patient Problems: Active and Suspected Problems GI bleed (Acute) Subjective: Feeling ok, no fever, outpt endoscopy planned. - Physical Exam Vitals/I&O's: Vital Signs Temp Pulse Resp BP Pulse Ox 98.4 F 74 16 125/69 H 97 12/31/19 14:28 12/31/19 14:28 12/31/19 14:28 12/31/19 14:28 12/31/19 14:28 Oxygen Flow Rate (L/min) 2 Oxygen Delivery Method Room Air Weight: 108.862 kg Body Mass Index (BMI) 30.8 Intake and Output for Last 24 Hours 12/29/19 12/30/19 12/31/19 23:59 23:59 23:59 Intake Total 2860 / 3360 4198.33 / 4198.33 2103.33 / 2103.33 Output Total 800 / 1250 1675 / 1675 575 / 575 Balance 2059 / 0 2523.33 / 2523.33 1528.33 / 1528.33 General: Alert, Cooperative, No apparent distress Lungs: Clear to auscultation, Normal air movement Cardiovascular: Regular rate, Regular Rhythm Abdomen: Soft, Non Tender, Non-Distended Skin: No rashes Microbiology Past 72 Hours 12/29/19 14:18 Wound - Other Gram Stain - Final 12/29/19 14:18 Wound - Other Wound Culture - Preliminary Gram negative shanta 12/29/19 14:18 Bone - Other Gram Stain - Final 12/29/19 14:18 Bone - Other Wound Culture - Preliminary No growth-Final to follow 12/29/19 14:18 Bone - Other Anaerobic Culture - Preliminary No growth in 48 hours. Laboratory Results 12/30/19 10:30: Crossmatch See Detail 12/30/19 10:32: Blood Type O POSITIVE, Antibody Screen NEGATIVE, Crossmatch See Detail 12/30/19 23:42: Hgb 7.9 L 12/31/19 05:58: WBC 9.0, RBC 2.39 L, Hgb 7.1 L, Hct 22.4 L, MCV 93.7, MCH 29.7, MCHC 31.7 L, RDW Std Deviation 57.6 H, RDW Coeff of Morenita 16.9 H, Plt Count 196, MPV 9.7 12/31/19 05:58: Sodium 137, Potassium 5.1, Chloride 103, Carbon Dioxide 24.0, Anion Gap 10, BUN 35 H, Creatinine 1.17, Estim Creat Clear Calc 55.62, Est GFR (MDRD) Af Amer 77, Est GFR (MDRD) Non-Af 63, BUN/Creatinine Ratio 29.9 H, Glucose 102, Calcium 8.6 12/31/19 15:40: COVID-19 (JUSTIN) Pending 12/31/19 15:40: COVID-19 (JUSTIN) Cancelled Current Medications Acetaminophen (Tylenol) 650 mg PO Q4H PRN PRN PRN Reason: Pain Score 1-10/10 Last Admin: 12/31/19 14:22 Dose: 650 mg Documented by: Amiodarone HCl (Cordarone) 200 mg PO DAILY@0800 [facility] Last Admin: 12/31/19 08:16 Dose: 200 mg Documented by: Diazepam (Valium) 5 mg PO 4X/DAY PRN PRN PRN Reason: SPASMS Docusate Sodium (Colace) 100 mg PO BID [facility] Last Admin: 12/31/19 08:16 Dose: 100 mg Documented by: Fluconazole (Diflucan) 200 mg PO DAILY [facility] Last Admin: 12/31/19 08:16 Dose: 200 mg Documented by: Hydromorphone HCl (Dilaudid Inj) 1 mg IV Q3H PRN PRN PRN Reason: Pain Score 6-10/10 Lactated Ringer's () 1,000 mls @ 100 mls/hr IV .Q10H [facility] Last Admin: 12/31/19 13:52 Dose: 100 mls/hr Documented by: Sodium Chloride () 250 mls @ 15 mls/hr IV .[id number] PRN PRN Reason: Saline Flush Linezolid (Zyvox 600mg) 600 mg in 300 mls @ 200 mls/hr IV Q12 [facility] Last Infusion: 12/31/19 11:41 Dose: Infused Documented by: Meloxicam (Mobic) 7.5 mg PO DAILY [facility] Last Admin: 12/31/19 08:16 Dose: 7.5 mg Documented by: Nutritional Formula (Leon - [place] Flavor) 1 packet PO BIDCM [facility] Last Admin: 12/31/19 08:15 Dose: 1 packet Documented by: Ondansetron HCl (Zofran) 4 mg IV Q6H PRN PRN PRN Reason: NAUSEA Oxycodone HCl (Oxyir) 10 mg PO Q4H PRN PRN PRN Reason: Pain Score 4-5/10 Pantoprazole Sodium (Protonix) 40 mg PO DAILY [facility] Last Admin: 12/31/19 08:16 Dose: 40 mg Documented by: Promethazine HCl (Phenergan Tablet) 25 mg PO Q4H PRN PRN PRN Reason: NAUSEA/VOMITING Silver Nitrate/Potassium Nitrate (Silver Nitrate (Bkc)) 5 each TOPICAL X1 PRN; Protocol PRN Reason: bleeding Sodium Chloride () 10 - 40 ml IV UD PRN PRN Reason: SALINE FLUSH Last Admin: 12/30/19 21:53 Dose: 10 ml Documented by: Medical Necessity - Tobacco Use Smoking Status: Never smoker Tobacco Use: Non-smoker Route of nutrition/ use of supplements: [] Nutritional Intake: [] IV Site: [] Powell Catheter: [] - Assessment/Plan Antibiotics: [] Assessment/Plan: [] L hip PJI - now s/p I&D by Dr. Low of abscess on 12/29/19. Surg cx showing very rare GNR. Cont linezolid and fluc. Will add ceftriaxone empirically. will follow
[2020-01-01] MEDS: Lactated Ringers 1,000 ML 100 ML IV ×2 (01:55→10:39)
[2020-01-01 02:00] VITALS: BP 137/65; PULSE 73; RESP 16; TEMP 36.7; O2SAT 96
[2020-01-01] MEDS: Acetaminophen 325 MG Tablet 650 MG PO ×2 (02:05→10:39)
[2020-01-01 07:39] LABS: Hematocrit 23.8 % (40-54); Hemoglobin 7.6 g/dL (13.0-16.5); Mean Corp Hgb Conc 31.9 g/dL (32-36); Mean Corpuscular Hgb 30.3 pg (27.0-32.0); Mean Corpuscular Volume 94.8 fL (80-94); Mean Platelet Vol. 9.7 fl (6.2-12.0); Platelet Count 184 K/mm3 (150-450); RBC Distribution Width CV 16.6 % (11.6-14.6); RBC Distribution Width SD 57.7 fl (35.1-43.9); Red Blood Count 2.51 M/mm3 (4.6-6.2); White Blood Count 6.6 K/mm3 (4.4-11.0)
[2020-01-01 08:02] LABS: Anion Gap 5 (5-15); BUN 26 mg/dL (7-18); BUN/Creat Ratio 26.4 RATIO (10-20); Calcium,Total 8.6 mg/dL (8.5-10.1); Chloride 106 mmol/L (98-107); Creatinine, Serum 0.99 mg/dL (0.70-1.30); EST Glomerular Filtration Rate 77 mL/min (>60); Est Glom Filt Rate - Afr Amer 93 mL/min (>60); Estimated Creatinine Clearance 65.73 ml/min; Glucose 92 mg/dL (74-106); Potassium 4.2 mmol/L (3.5-5.1); Sodium Level 138 mmol/L (136-145)
[2020-01-01] MEDS: Meloxicam 7.5 MG Tablet PO (08:10)
[2020-01-01] MEDS: Docusate Sodium 100 MG Capsule PO (08:10)
[2020-01-01] MEDS: Fluconazole 100 MG Tablet 200 MG PO (08:11)
[2020-01-01] MEDS: Amiodarone 200 MG Tablet PO (08:11)
[2020-01-01] MEDS: Pantoprazole Sodium 40 MG Tablet PO (08:11)
[2020-01-01 08:26] VITALS: BP 145/72; PULSE 75; RESP 16; TEMP 36.4; O2SAT 97
[2020-01-01] MEDS: Linezolid 600 MG 600 MG/300 ML BAG 200 MG IV (11:15)
[2020-01-01 11:18] VITALS: BP 130/69; PULSE 75; RESP 16; TEMP 36.6; O2SAT 97
[2020-01-01 12:12] LABS: Pathologist Review Reviewed
[2020-01-01 14:46] VITALS: BP 143/78; PULSE 82; RESP 16; TEMP 36.9; O2SAT 96
--- NOTE | 2020-01-01 17:24 | PN.ID_ITS ---
Patient Problems: Active and Suspected Problems GI bleed (Acute) Subjective: Feeling ok, no fever - Physical Exam Vitals/I&O's: Vital Signs Temp Pulse Resp BP Pulse Ox 98.4 F 82 16 143/78 H 96 01/01/20 14:46 01/01/20 14:46 01/01/20 14:46 01/01/20 14:46 01/01/20 14:46 Oxygen Flow Rate (L/min) 2 Oxygen Delivery Method Room Air Weight: 108.862 kg Body Mass Index (BMI) 30.8 Intake and Output for Last 24 Hours 12/30/19 12/31/19 01/01/20 23:59 23:59 23:59 Intake Total 4198.33 / 4198.33 3358.33 / 3858.33 2828.33 / 2828.33 Output Total 1675 / 1675 950 / 1350 2250 / 2250 Balance 2523.33 / 2523.33 2408.33 / 2508.33 578.33 / 578.33 General: Alert, Cooperative, No apparent distress Lungs: Clear to auscultation, Normal air movement Cardiovascular: Regular rate, Regular Rhythm Abdomen: Soft, Non Tender, Non-Distended Skin: Ulcer/ Wound Microbiology Past 72 Hours 12/29/19 14:18 Wound - Other Gram Stain - Final 12/29/19 14:18 Wound - Other Wound Culture - Final Klebsiella pneumoniae sp pneum 12/29/19 14:18 Wound - Other Anaerobic Culture - Final No anaerobic bacteria isolated. 12/29/19 14:18 Bone - Other Gram Stain - Final 12/29/19 14:18 Bone - Other Wound Culture - Final No growth aerobically. 12/29/19 14:18 Bone - Other Anaerobic Culture - Preliminary No growth in 48 hours. Laboratory Results 12/30/19 06:08: Diff Path Review Reviewed 12/31/19 15:40: COVID-19 (JUSTIN) Not Detected 01/01/20 07:28: WBC 6.6, RBC 2.51 L, Hgb 7.6 L, Hct 23.8 L, MCV 94.8 H, MCH 30.3, MCHC 31.9 L, RDW Std Deviation 57.7 H, RDW Coeff of Moren[place] 16.6 H, Plt Count 184, MPV 9.7 01/01/20 07:28: Sodium 138, Potassium 4.2, Chloride 106, Carbon Dioxide 27.0, Anion Gap 5, BUN 26 H, Creatinine 0.99, Estim Creat Clear Calc 65.73, Est GFR (MDRD) Af Amer 93, Est GFR (MDRD) Non-Af 77, BUN/Creatinine Ratio 26.4 H, Glucose 92, Calcium 8.6 Current Medications Acetaminophen (Tylenol) 650 mg PO Q4H PRN PRN PRN Reason: Pain Score 1-10/10 Last Admin: 01/01/20 10:39 Dose: 650 mg Documented by: Amiodarone HCl (Cordarone) 200 mg PO DAILY@0800 [facility] Last Admin: 01/01/20 08:11 Dose: 200 mg Documented by: Diazepam (Valium) 5 mg PO 4X/DAY PRN PRN PRN Reason: SPASMS Docusate Sodium (Colace) 100 mg PO BID [facility] Last Admin: 01/01/20 08:10 Dose: 100 mg Documented by: Fluconazole (Diflucan) 200 mg PO DAILY [facility] Last Admin: 01/01/20 08:11 Dose: 200 mg Documented by: Hydromorphone HCl (Dilaudid Inj) 1 mg IV Q3H PRN PRN PRN Reason: Pain Score 6-10/10 Lactated Ringer's () 1,000 mls @ 100 mls/hr IV .Q10H [facility] Last Infusion: 01/01/20 12:48 Dose: 100 mls/hr Documented by: Sodium Chloride () 250 mls @ 15 mls/hr IV .[id number] PRN PRN Reason: Saline Flush Linezolid (Zyvox 600mg) 600 mg in 300 mls @ 200 mls/hr IV Q12 [facility] Last Infusion: 01/01/20 12:48 Dose: Infused Documented by: Ceftriaxone Sodium 2 gm/ (Sodium Chloride) 50 mls @ 100 mls/hr IV Q24 [facility] Last Infusion: 01/01/20 11:15 Dose: Infused Documented by: Meloxicam (Mobic) 7.5 mg PO DAILY [facility] Last Admin: 01/01/20 08:10 Dose: 7.5 mg Documented by: Nutritional Formula ([place] - [place] Flavor) 1 packet PO BIDCM [facility] Last Admin: 01/01/20 16:19 Dose: 1 packet Documented by: Ondansetron HCl (Zofran) 4 mg IV Q6H PRN PRN PRN Reason: NAUSEA Last Admin: 12/31/19 17:22 Dose: 4 mg Documented by: Oxycodone HCl (Oxyir) 10 mg PO Q4H PRN PRN PRN Reason: Pain Score 4-5/10 Pantoprazole Sodium (Protonix) 40 mg PO DAILY [facility] Last Admin: 01/01/20 08:11 Dose: 40 mg Documented by: Promethazine HCl (Phenergan Tablet) 25 mg PO Q4H PRN PRN PRN Reason: NAUSEA/VOMITING Silver Nitrate/Potassium Nitrate (Silver Nitrate (Bkc)) 5 each TOPICAL X1 PRN; Protocol PRN Reason: bleeding Sodium Chloride () 10 - 40 ml IV UD PRN PRN Reason: SALINE FLUSH Last Admin: 12/30/19 21:53 Dose: 10 ml Documented by: Medical Necessity - Tobacco Use Smoking Status: Never smoker Tobacco Use: Non-smoker Route of nutrition/ use of supplements: [] Nutritional Intake: [] IV Site: [] Powell Catheter: [] - Assessment/Plan Antibiotics: [] Assessment/Plan: [] L hip PJI - now s/p I&D by Dr. Low of abscess on 12/29/19. Surg cx showing very rare klebs. Cont linezolid, fluc, and ceftriaxone while inpatient. Plan on discharge on linezolid, fluc, and duricef. ID followup in 2 weeks. will follow
--- NOTE | 2020-01-01 18:48 | DCINST_ITS ---
- Discharge Diagnoses Current Active Problems: Current Active and Chronic Problems GI bleed (Acute) You will use the following diet at home:: No restrictions, Other - encourage nutritional supplementation with protein to help the healing process. Discharge Activity: May Shower - on the days the vac is changed., - - elevate left leg when sitting. May shower in (days): 2 - on the days the vac is changed. May resume sexual activity in: No Restrictions Weight Bearing Status: Weight bearing as tolerated Keep extremity elevated above heart level: Left Leg Call your doctor if your incision/area has: Continuous Slow Oozing, Sudden Increased Bleeding, Increased Pain/ Swelling, Increased Redness, Foul Smelling Discharge, Swelling at the incision site Call your doctor if you observe: Fever of 101 or Higher, Coldness, Increased Pain, Shortness of breath, Chest pain, Calf discomfort, Uncontrolled pain Suture Line Care: - - vac changes three times per week at 150 mmHg continuous suction. Change Dressing in (Days):: 2 - vac changes three times per week. Cleanse incision/area with: Soap & Water - may cleanse the wound with soap and water at the time of the vac dressing change., - - may take a shower on the days the vac is changed. Additional Dressing/Incision Instructions:: Home Health to assist vac changes three times per week at 150 mmHg continuous suction. May cleansee the wound with soap and water at the time of the vac change. Allergies/Adverse Reactions: Allergies apple Allergy (Verified 12/28/19 13:30) Rash Penicillins [PCN] Allergy (Verified 12/28/19 13:30) Rash Medications to take at Discharge Amiodarone HCl 200 mg PO DAILY@0800 #30 tab 10/07/19 Aspirin [Aspirin, Baby] 81 mg PO BIDCM #30 tab.chew 10/07/19 Linezolid [Zyvox] 600 mg PO BID 14 Days #28 tab 10/16/19 Esomeprazole Mag Trihydrate [Nexium] 40 mg PO DAILY 12/28/19 Fluconazole [Diflucan] 200 mg PO DAILY 12/28/19 Meloxicam 7.5 mg PO DAILY 12/28/19 Acetaminophen [Tylenol Tablet] 650 mg PO Q4H PRN PRN tablet 01/01/20 Cefadroxil Hydrate [Duricef] 1,000 mg PO BID 15 Days #60 cap 01/01/20 Diazepam [Valium] 5 mg PO 4X/DAY PRN PRN #30 tablet 01/01/20 Fluconazole [Diflucan] 200 mg PO DAILY tablet 01/01/20 The following prescriptions were given: Cefadroxil Hydrate [Duricef] 1,000 mg PO BID 15 Days #60 cap Transmission Status: Received by [id number] Diazepam [Valium] 5 mg PO 4X/DAY PRN PRN #30 tablet PRN Reason: Spasms Transmission Status: Sent to [facility] Primary Care Physician: Christos Golden MD [Primary Care Provider] - Test Results: Test results from this visit will be discussed in further detail at your follow- up appointment, if applicable. Please Follow Up With: Kevin Low MD When: Saturday01/11/20 at [facility]. call [phone] for appt time Please Follow Up With: Krishna Vora MD When: Saturday Proposed Discharge Date: 01/01/20
[2020-01-01 18:55] VITALS: BP 143/63; PULSE 80; RESP 18; TEMP 36.7; O2SAT 100
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
== END 2020-01-01 19:45 | disposition home or self-care (01) | DRG 580 ==
LOC: SDC 14:38 → MS3 14:38
PROVIDERS: Anesthesiology; Surgery; Admitting Provider Surgery; PCP Internal Medicine; Referring Provider Surgery; Visit Provider Surgery
DX: L97.125 Non-pressure chronic ulcer of left thigh with muscle involvement without evidence of necrosis (principal); M87.9 Osteonecrosis, unspecified; M97.02XA 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, initial encounter; K92.1 Melena; T81.31XA Disruption of external operation (surgical) wound, not elsewhere classified, initial encounter; T84.52XA Infection and inflammatory reaction due to internal left hip prosthesis, initial encounter; T84.52XD Infection and inflammatory reaction due to internal left hip prosthesis, subsequent encounter; I48.0 Paroxysmal atrial fibrillation; B96.1 Klebsiella pneumoniae [K. pneumoniae] as the cause of diseases classified elsewhere; D50.9 Iron deficiency anemia, unspecified; I10 Essential (primary) hypertension; M19.90 Unspecified osteoarthritis, unspecified site; K21.9 Gastro-esophageal reflux disease without esophagitis; Z79.1 Long term (current) use of non-steroidal anti-inflammatories (NSAID); Z11.59 Encounter for screening for other viral diseases; Z86.718 Personal history of other venous thrombosis and embolism; Z79.82 Long term (current) use of aspirin; Z79.899 Other long term (current) drug therapy; D63.8 Anemia in other chronic diseases classified elsewhere; Z96.642 Presence of left artificial hip joint; Y83.8 Other surgical procedures as the cause of abnormal reaction of the patient, or of later complication, without mention of misadventure at the time of the procedure; S70.02XD Contusion of left hip, subsequent encounter; V49.9XXD Car occupant (driver) (passenger) injured in unspecified traffic accident, subsequent encounter
CPT/HCPCS: 11043; 36415; 74177; 80048; 80053; 84134; 85018; 85027; 85652; 86140; 86850; 86900; 86901; 86920; 86922; 87070; 87075; 87077; 87102; 87176; 87186; 87205; 87206; 87635; 88304; 88305; 88311; G2023; J2020; J7040; J7120; P9016; Q9967; A4216; J0696; J2405; U0003

== ENCOUNTER 2020-01-04 17:24 | Outpatient (RCR) | payer MEDICARE, SELFPAY ==
[2019-12-14 12:59] LABS: Erythrocyte Sedimentation Rate 40 mm/hr (0-20)
[2019-12-14 13:02] LABS: Absolute Lymphocyte Count 0.97 X10^3/uL (0.83-4.51); Basophil# 0.05 X10^3/uL; Basophil% 0.8 % (0-1); Eosinophil# 0.31 X10^3/uL; Eosinophils% 5.1 % (0-5); Hematocrit 26.7 % (40-54); Hemoglobin 8.3 g/dL (13.0-16.5); Lymphocyte # 0.97 X10^3/ul (4.0); Lymphocyte % 15.8 % (19-41); Mean Corp Hgb Conc 31.1 g/dL (32-36); Mean Corpuscular Hgb 29.5 pg (27.0-32.0); Mean Platelet Vol. 9.6 fl (6.2-12.0); Monocyte# 0.79 X10^3/uL; Monocyte% 12.9 % (0-10); NRBC Flagged by Analyzer 0 % (0-5); Neutrophil # 3.96 X10^3/uL (2.7-7.7); Neutrophil % 64.7 % (47-70); Platelet Count 272 K/mm3 (150-450); RBC Distribution Width CV 17.1 % (11.6-14.6); RBC Distribution Width SD 58.8 fl (35.1-43.9); Red Blood Count 2.81 M/mm3 (4.6-6.2); White Blood Count 6.1 K/mm3 (4.4-11.0)
[2019-12-14 13:26] LABS: AST(SGOT) 10 U/L (15-37); Alanine Aminotransfer ALT/SGPT 15 U/L (16-61); Albumin, Serum 3.3 g/dL (3.2-5.0); Alkaline Phosphatase 102 U/L (45-117); Anion Gap 12 (5-15); BUN 28 mg/dL (7-18); BUN/Creat Ratio 27.7 RATIO (10-20); Bilirubin, Direct 0.06 mg/dL (0.00-0.30); Chloride 101 mmol/L (98-107); Creatinine, Serum 1.01 mg/dL (0.70-1.30); EST Glomerular Filtration Rate 75 mL/min (>60); Est Glom Filt Rate - Afr Amer 91 mL/min (>60); Globulin 4.2 g/dL (2.2-4.2); Glucose 111 mg/dL (74-106); Potassium 4.9 mmol/L (3.5-5.1); Protein, Total 7.5 g/dL (6.4-8.2); Sodium Level 136 mmol/L (136-145)
[2019-12-21 16:15] LABS: Absolute Lymphocyte Count 0.91 X10^3/uL (0.83-4.51); Absolute Neutrophil Count 3.5 X10^3/uL (2.0-7.7); Basophil# 0.06 X10^3/uL; Basophil% 1.1 % (0-1); Eosinophil# 0.26 X10^3/uL; Eosinophils% 4.7 % (0-5); Hematocrit 25.3 % (40-54); Hemoglobin 7.9 g/dL (13.0-16.5); Lymphocyte # 0.91 X10^3/ul (4.0); Lymphocyte % 16.3 % (19-41); Mean Corp Hgb Conc 31.2 g/dL (32-36); Mean Platelet Vol. 9.4 fl (6.2-12.0); Monocyte# 0.83 X10^3/uL; Monocyte% 14.8 % (0-10); NRBC Flagged by Analyzer 0.4 % (0-5); Neutrophil # 3.51 X10^3/uL (2.7-7.7); Neutrophil % 62.7 % (47-70); Platelet Count 323 K/mm3 (150-450); RBC Distribution Width CV 17.8 % (11.6-14.6); RBC Distribution Width SD 59.8 fl (35.1-43.9); Red Blood Count 2.72 M/mm3 (4.6-6.2); White Blood Count 5.6 K/mm3 (4.4-11.0)
[2020-01-04 18:07] LABS: Absolute Lymphocyte Count 1.16 X10^3/uL (0.83-4.51); Absolute Neutrophil Count 3.8 X10^3/uL (2.0-7.7); Basophil# 0.05 X10^3/uL; Basophil% 0.8 % (0-1); Eosinophil# 0.18 X10^3/uL; Hematocrit 25.2 % (40-54); Hemoglobin 7.9 g/dL (13.0-16.5); Lymphocyte # 1.16 X10^3/ul (4.0); Mean Corp Hgb Conc 31.3 g/dL (32-36); Mean Corpuscular Hgb 30.2 pg (27.0-32.0); Mean Corpuscular Volume 96.2 fL (80-94); Mean Platelet Vol. 9.3 fl (6.2-12.0); Monocyte# 0.85 X10^3/uL; NRBC Flagged by Analyzer 0.3 % (0-5); Neutrophil # 3.76 X10^3/uL (2.7-7.7); Neutrophil % 61.7 % (47-70); Platelet Count 289 K/mm3 (150-450); RBC Distribution Width CV 16.7 % (11.6-14.6); RBC Distribution Width SD 57.1 fl (35.1-43.9); Red Blood Count 2.62 M/mm3 (4.6-6.2); White Blood Count 6.1 K/mm3 (4.4-11.0)
[2020-01-04 18:22] LABS: AST(SGOT) 15 U/L (15-37); Alanine Aminotransfer ALT/SGPT 18 U/L (16-61); Albumin, Serum 3.1 g/dL (3.2-5.0); Alkaline Phosphatase 83 U/L (45-117); Anion Gap 9 (5-15); BUN 17 mg/dL (7-18); BUN/Creat Ratio 17.4 RATIO (10-20); Bilirubin, Direct 0.06 mg/dL (0.00-0.30); Calcium,Total 8.8 mg/dL (8.5-10.1); Chloride 105 mmol/L (98-107); Creatinine, Serum 0.98 mg/dL (0.70-1.30); EST Glomerular Filtration Rate 78 mL/min (>60); Est Glom Filt Rate - Afr Amer 94 mL/min (>60); Globulin 3.9 g/dL (2.2-4.2); Glucose 81 mg/dL (74-106); Potassium 4.4 mmol/L (3.5-5.1); Sodium Level 139 mmol/L (136-145)
[2020-01-04 18:27] LABS: Erythrocyte Sedimentation Rate 37 mm/hr (0-20)
== END 2020-01-04 18:00 | disposition home or self-care (01) ==
LOC: HHLAB 17:24
PROVIDERS: Specialist; PCP Internal Medicine; Referring Provider Internal Medicine Infectious Disease; Visit Provider Internal Medicine Infectious Disease
DX: T84.52XA Infection and inflammatory reaction due to internal left hip prosthesis, initial encounter (principal)
CPT/HCPCS: 80048; 80076; 85025; 85652

== ENCOUNTER 2020-01-05 08:31 | Day surgery (SDC) | payer MEDICARE, SELFPAY ==
[2019-12-29 15:46] VITALS: BMI 30.8
[2020-01-05] VITALS (8 sets, daily range): BP systolic 133–144; BP diastolic 74–80; PULSE 65–69; RESP 16–18; TEMP 36.1–37.1; O2SAT 97–99; BMI 30.8
--- NOTE | 2020-01-05 | EGD_PTH ---
PATIENT: IAN BAZAN LOC: EN U#:[id number] AGE/SX: 84/M ROOM: RE01/05/[address]: Dr. Krishna Vora MD : [id number] BED: DIS: 01/05/2020 SPEC #: [id number] RECD: 01/05/20 13:40 STATUS: JESUS DANELLE #: [id number] HALIMA: 01/05/20 00:[address]: Krishna Vora DEPT: SURGICAL PATHOLOGY RECD BY: Han Amezcua ENTERED: 01/05/20 13:40 SP TYPE: EGD BIOPSY OTHR DR: Dr. Christos Golden MD Tissues: Stomach, NOS Procedures: Surgery Specimen Level IV HEADER OPERATION[place] [facility] [place] DIAGNOSIS: GI bleed TISSUE SUBMITTED: Stomach polyp MICROSCOPIC DIAGNOSIS Gastric polyp, biopsy: Consistent with fundic gland polyp. Mild chronic gastritis. AM:sonu 01/06/20 MICROSCOPIC DESCRIPTION Slides are reviewed. GROSS DESCRIPTION Received in fixative is one container labeled with the patient's name and designated stomach polyp. The specimen consists of two polypoid pieces of montoya-pink soft tissue measuring 1 x 1 x 0.5 cm and 2.5 x 0.3 x 0.3 cm. The largest polyp is inked and bisected. The entire specimen is submitted in one cassette. / SJ:sonu 01/05/20 TC:1 CPT: 43763
[2020-01-05] MEDS: Lactated Ringers 1,000 ML 100 ML IV (09:24)
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
--- NOTE | 2020-01-05 10:27 | PCM.PN.BLA ---
Progress Note Patient's colonoscopy prep was incomplete. He has still had a large amount of stool. We will repeat prep overnight and repeat scope tomorrow morning STROKE Vital Signs/Narrative: Vital Signs Temp Pulse Resp BP Pulse Ox 01/05/20 09:08 98.7 F 69 18 141/78 H 97
--- NOTE | 2020-01-05 10:30 | OP.EGD_ITS ---
Patient Name: Og Hernandez Procedure Date: 01/05/2020 10:00 AM Date of : 1935 Age: 84 Procedure: Upper GI endoscopy Indications: Iron deficiency anemia, Hematochezia Providers: Krishna Vora MD Referring MD: Christos Golden Medicines: Monitored Anesthesia Care Patient Profile: This is an 84 year old male. Refer to note in patient chart for documentation of history and physical. Complications: No immediate complications. Estimated blood loss: Minimal. Procedure: Pre-Anesthesia Assessment: - Prior to the procedure, a History and Physical was performed, and patient medications and allergies were reviewed. The patient's tolerance of previous anesthesia was also reviewed. The risks and benefits of the procedure and the sedation options and risks were discussed with the patient. All questions were answered, and informed consent was obtained. Prior Anticoagulants: The patient has taken aspirin, last dose was 1 day prior to procedure. After reviewing the risks and benefits, the patient was deemed in satisfactory condition to undergo the procedure. After obtaining informed consent, the endoscope was passed under direct vision. Throughout the procedure, the patient's blood pressure, pulse, and oxygen saturations were monitored continuously. The gastroscope was introduced through the mouth, and advanced to the second part of duodenum. The upper GI endoscopy was accomplished without difficulty. The patient tolerated the procedure well. Scope In: 10:10:25 AM Scope Out: 10:15:06 AM Total Procedure Duration Time 0 hours 4 minutes 41 seconds Findings: Multiple pedunculated polyps with no bleeding and stigmata of recent bleeding were found in the stomach. The polyp was removed with a hot snare. Resection and retrieval were complete. The examined duodenum was normal. The esophagus was normal. A medium-sized hiatal hernia was present. Impression: - Multiple gastric polyps. Resected and retrieved. - Normal examined duodenum. - Normal esophagus. - Medium-sized hiatal hernia. Recommendation: - Await pathology results. - Discharge patient to home. - Clear liquid diet. - Continue present medications. Procedure Code(s): --- Professional --- 57111, Esophagogastroduodenoscopy, flexible, transoral; with removal of tumor(s), polyp(s), or other lesion(s) by snare technique Diagnosis Code(s): --- Professional --- K31.7, Polyp of stomach and duodenum K44.9, Diaphragmatic hernia without obstruction or gangrene D50.9, Iron deficiency anemia, unspecified K92.1, Melena (includes Hematochezia) CPT copyright 2017 [employer]. All rights reserved. The codes documented in this report are preliminary and upon customer relations assistant review may be revised to meet current compliance requirements. Krishna Vora MD 01/05/2020 10:30:08 AM This report has been signed electronically. Number of Addenda: 0 Note Initiated On: 01/05/2020 10:00 AM
--- NOTE | 2020-01-05 10:30 | OP.CCLET_ITS ---
01/05/2020 Christos Golden Re : Upper GI endoscopy procedure for Og Hernandez Dear Chantel This procedure was performed on Sunday, January 05, 2020. My impressions and recommendations are as follows: Impressions : - Multiple gastric polyps. Resected and retrieved. - Normal examined duodenum. - Normal esophagus. - Medium-sized hiatal hernia. Recommendations : - Await pathology results. - Discharge patient to home. - Clear liquid diet. - Continue present medications. My findings are described in the full procedure note, which is enclosed. If I can be of further assistance, please feel free to contact me at Doctor phone number(s): , Work: . Sincerely, Krishna Vora MD 01/05/2020 10:30:08 AM This report has been signed electronically.
--- NOTE | 2020-01-05 10:33 | OP.CCLET_ITS ---
01/05/2020 Christos Golden Re : Colonoscopy procedure for Og Hernandez Dear Chantel This procedure was performed on Sunday, January 05, 2020. My impressions and recommendations are as follows: Impressions : - Preparation of the colon was unsatisfactory. - No specimens collected. Recommendations : - Discharge patient to home. - Clear liquid diet. - Repeat colonoscopy tomorrow because the examination was incomplete. - Continue present medications. My findings are described in the full procedure note, which is enclosed. If I can be of further assistance, please feel free to contact me at Doctor phone number(s): , Work: . Sincerely, Krishna Vora MD 01/05/2020 10:32:52 AM This report has been signed electronically.
--- NOTE | 2020-01-05 10:33 | OP.COLON_ITS ---
Patient Name: Og Hernandez Procedure Date: 01/05/2020 10:16 AM Date of : 1935 Age: 84 Procedure: Colonoscopy Indications: Hematochezia Providers: Krishna Vora MD Referring MD: Christos Golden Medicines: Monitored Anesthesia Care Patient Profile: This is an 84 year old male. Refer to note in patient chart for documentation of history and physical. Last Colonoscopy: 3 years ago. Complications: No immediate complications. Estimated blood loss: Minimal. Procedure: Pre-Anesthesia Assessment: - Prior to the procedure, a History and Physical was performed, and patient medications and allergies were reviewed. The patient's tolerance of previous anesthesia was also reviewed. The risks and benefits of the procedure and the sedation options and risks were discussed with the patient. All questions were answered, and informed consent was obtained. Prior Anticoagulants: The patient has taken aspirin, last dose was 1 day prior to procedure. After reviewing the risks and benefits, the patient was deemed in satisfactory condition to undergo the procedure. After I obtained informed consent, the scope was passed under direct vision. Throughout the procedure, the patient's blood pressure, pulse, and oxygen saturations were monitored continuously. The colonoscope was introduced through the anus and advanced to the sigmoid colon. The colonoscopy was performed without difficulty. The patient tolerated the procedure well. The quality of the bowel preparation was unsatisfactory. Scope In: 10:18:45 AM Scope Out: 10:22:05 AM Total Procedure Duration Time 0 hours 3 minutes 20 seconds Findings: Impression: - Preparation of the colon was unsatisfactory. - No specimens collected. Recommendation: - Discharge patient to home. - Clear liquid diet. - Repeat colonoscopy tomorrow because the examination was incomplete. - Continue present medications. Procedure Code(s): --- Professional --- 72310, 53, Colonoscopy, flexible; diagnostic, including collection of specimen(s) by brushing or washing, when performed (separate procedure) Diagnosis Code(s): --- Professional --- K92.1, Melena (includes Hematochezia) CPT copyright 2017 [employer]. All rights reserved. The codes documented in this report are preliminary and upon punch press setter review may be revised to meet current compliance requirements. Krishna Vora MD 01/05/2020 10:32:52 AM This report has been signed electronically. Number of Addenda: 0 Note Initiated On: 01/05/2020 10:16 AM
== END 2020-01-05 11:28 | disposition home or self-care (01) ==
LOC: EN 08:32 → AC 08:33
PROVIDERS: PCP Internal Medicine; Referring Provider Internal Medicine; Visit Provider Surgery
PROC: 0DJD8ZZ Inspection of Lower Intestinal Tract, Via Natural or Artificial Opening Endoscopic (ICD-10-PCS; CPT 45378; principal; 2020-01-05 09:40)
DX: K29.50 Unspecified chronic gastritis without bleeding (principal); K31.7 Polyp of stomach and duodenum; K44.9 Diaphragmatic hernia without obstruction or gangrene; D50.9 Iron deficiency anemia, unspecified; K21.9 Gastro-esophageal reflux disease without esophagitis; Z53.8 Procedure and treatment not carried out for other reasons; I48.0 Paroxysmal atrial fibrillation; I10 Essential (primary) hypertension; M19.90 Unspecified osteoarthritis, unspecified site; Z86.718 Personal history of other venous thrombosis and embolism; Z87.440 Personal history of urinary (tract) infections; Z79.01 Long term (current) use of anticoagulants; Z79.82 Long term (current) use of aspirin; Z79.899 Other long term (current) drug therapy
CPT/HCPCS: 43251; 45378; 88305; J7120; J2405

== ENCOUNTER 2020-01-06 08:49 | Day surgery (SDC) | payer MEDICARE, SELFPAY ==
[2020-01-05 09:08] VITALS: BMI 30.8
--- NOTE | 2020-01-06 09:04 | PCM.HP.BLA ---
Problem List (1) GI bleed Status: Acute Qualifiers: GI bleed type/associated pathology: unspecified gastrointestinal hemorrhage type History and Physical Date of Admission: 01/06/20 Patient had H&P done yesterday. He had EGD yesterday and his colonoscopy was unable to be completed due to incomplete prep. He reprepped over the night and will attempt colonoscopy today. Krishna Vora MD Pager: [facility] [address] [place] [address], [address] [place] [address] Office:
[2020-01-06 09:16] VITALS: BP 133/56; PULSE 66; RESP 17; TEMP 36.4; O2SAT 99; BMI 30.8
[2020-01-06] MEDS: Lactated Ringers 1,000 ML 100 ML IV (09:28)
[2020-01-06 10:37] VITALS: BP 128/71; BP 133/56; PULSE 66; RESP 16; TEMP 36.2; O2SAT 98
--- NOTE | 2020-01-06 10:38 | OP.COLON_ITS ---
Patient Name: Og Hernandez Procedure Date: 01/06/2020 9:21 AM Date of : 1935 Age: 84 Procedure: Colonoscopy Indications: Hematochezia Providers: Krishna Vora MD Referring MD: Krishna Vora MD Medicines: Monitored Anesthesia Care Patient Profile: Last Colonoscopy: 3 years ago. Complications: No immediate complications. Procedure: Pre-Anesthesia Assessment: - Prior to the procedure, a History and Physical was performed, and patient medications and allergies were reviewed. The patient's tolerance of previous anesthesia was also reviewed. The risks and benefits of the procedure and the sedation options and risks were discussed with the patient. All questions were answered, and informed consent was obtained. Prior Anticoagulants: The patient has taken no previous anticoagulant or antiplatelet agents. After reviewing the risks and benefits, the patient was deemed in satisfactory condition to undergo the procedure. After I obtained informed consent, the scope was passed under direct vision. Throughout the procedure, the patient's blood pressure, pulse, and oxygen saturations were monitored continuously. The pediatric colonoscope was introduced through the anus and advanced to the cecum, identified by appendiceal orifice and ileocecal valve. The colonoscopy was extremely difficult due to significant looping. Successful completion of the procedure was aided by changing the patient to a supine position. The patient tolerated the procedure well. The quality of the bowel preparation was adequate. Scope In: 9:48:23 AM Scope Withdrawal Time 0 hours 5 minutes 52 seconds Scope Out: 10:31:32 AM Total Procedure Duration Time 0 hours 43 minutes 9 seconds Findings: Many small and large-mouthed diverticula were found in the sigmoid colon. The exam was otherwise without abnormality on direct and retroflexion views. External and internal hemorrhoids were found during retroflexion and during digital exam. Impression: - Diverticulosis in the sigmoid colon. - The examination was otherwise normal on direct and retroflexion views. - External and internal hemorrhoids. - No specimens collected. Recommendation: - Repeat colonoscopy is not recommended for screening purposes. - Resume previous diet. - Continue present medications. Procedure Code(s): --- Professional --- 12853, Colonoscopy, flexible; diagnostic, including collection of specimen(s) by brushing or washing, when performed (separate procedure) Diagnosis Code(s): --- Professional --- K64.8, Other hemorrhoids K92.1, Melena (includes Hematochezia) K57.30, Diverticulosis of large intestine without perforation or abscess without bleeding CPT copyright 2017 [employer]. All rights reserved. The codes documented in this report are preliminary and upon fuel conversion technician review may be revised to meet current compliance requirements. Krishna Vora MD 01/06/2020 10:38:02 AM This report has been signed electronically. Number of Addenda: 0 Note Initiated On: 01/06/2020 9:21 AM
--- NOTE | 2020-01-06 10:38 | OP.CCLET_ITS ---
01/06/2020 Christos Golden Re : Colonoscopy procedure for Og Hernandez Dear Chantel This procedure was performed on Monday, January 06, 2020. My impressions and recommendations are as follows: Impressions : - Diverticulosis in the sigmoid colon. - The examination was otherwise normal on direct and retroflexion views. - External and internal hemorrhoids. - No specimens collected. Recommendations : - Repeat colonoscopy is not recommended for screening purposes. - Resume previous diet. - Continue present medications. My findings are described in the full procedure note, which is enclosed. If I can be of further assistance, please feel free to contact me at Doctor phone number(s): , Work: . Sincerely, Krishna Vora MD 01/06/2020 10:38:02 AM This report has been signed electronically.
[2020-01-06 10:42] VITALS: BP 133/56; BP 137/71; PULSE 66; RESP 16; O2SAT 98
[2020-01-06 10:47] VITALS: BP 133/56; BP 141/73; PULSE 66; RESP 16; O2SAT 97
[2020-01-06 10:52] VITALS: BP 133/56; BP 140/75; PULSE 65; RESP 16; TEMP 36.8; O2SAT 98
[2020-01-06 11:30] VITALS: BP 133/56; BP 138/75; PULSE 64; RESP 16; TEMP 36.2; O2SAT 100
== END 2020-01-06 11:40 | disposition home or self-care (01) ==
LOC: EN 08:49 → AC 08:52
PROVIDERS: PCP Internal Medicine; Referring Provider Surgery; Visit Provider Surgery
PROC: 0DJD8ZZ Inspection of Lower Intestinal Tract, Via Natural or Artificial Opening Endoscopic (ICD-10-PCS; CPT 45378; principal; 2020-01-06 09:55)
DX: K64.8 Other hemorrhoids (principal); K64.4 Residual hemorrhoidal skin tags; K57.30 Diverticulosis of large intestine without perforation or abscess without bleeding; I10 Essential (primary) hypertension; K21.9 Gastro-esophageal reflux disease without esophagitis; I48.0 Paroxysmal atrial fibrillation; M19.90 Unspecified osteoarthritis, unspecified site; Z86.2 Personal history of diseases of the blood and blood-forming organs and certain disorders involving the immune mechanism; Z87.19 Personal history of other diseases of the digestive system; Z86.718 Personal history of other venous thrombosis and embolism; Z79.82 Long term (current) use of aspirin; Z79.899 Other long term (current) drug therapy
CPT/HCPCS: 45378; J7120; J2405

== ENCOUNTER 2020-01-11 08:30 | Outpatient (RCR) | payer MEDICARE, SELFPAY ==
[2019-12-14 00:34] VITALS: BP 135/62; PULSE 74; RESP 16; TEMP 36.1
[2019-12-18 12:56] VITALS: BP 132/73; PULSE 74; RESP 16; TEMP 36.6; BMI 29.6
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
[2019-12-28 10:26] VITALS: BP 121/52; PULSE 73; RESP 16; TEMP 36.6; BMI 29.6
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
[2020-01-11 08:19] VITALS: BP 149/91; PULSE 68; RESP 18; TEMP 36.2; BMI 29.6
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
== END 2020-01-12 23:59 ==
LOC: WC 08:30
PROVIDERS: PCP Internal Medicine; Visit Provider Family Medicine
DX: T81.31XA Disruption of external operation (surgical) wound, not elsewhere classified, initial encounter (principal); T84.52XA Infection and inflammatory reaction due to internal left hip prosthesis, initial encounter; Y83.8 Other surgical procedures as the cause of abnormal reaction of the patient, or of later complication, without mention of misadventure at the time of the procedure; S70.02XD Contusion of left hip, subsequent encounter; V49.9XXD Car occupant (driver) (passenger) injured in unspecified traffic accident, subsequent encounter; I48.0 Paroxysmal atrial fibrillation; Z86.718 Personal history of other venous thrombosis and embolism; M19.90 Unspecified osteoarthritis, unspecified site; I10 Essential (primary) hypertension; K21.9 Gastro-esophageal reflux disease without esophagitis; Z79.899 Other long term (current) drug therapy; Z79.82 Long term (current) use of aspirin; M97.02XD 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, subsequent encounter
CPT/HCPCS: 11042; 11043; 11046; 97606

== ENCOUNTER 2020-01-13 12:23 | Outpatient (RCR) | payer MEDICARE, SELFPAY ==
[2020-01-12 22:46] VITALS: BMI 30.8
[2020-01-13 12:51] LABS: Absolute Lymphocyte Count 0.94 X10^3/uL (0.83-4.51); Absolute Neutrophil Count 6.3 X10^3/uL (2.0-7.7); Basophil# 0.05 X10^3/uL; Basophil% 0.6 % (0-1); Eosinophil# 0.22 X10^3/uL; Eosinophils% 2.6 % (0-5); Hematocrit 28.6 % (40-54); Hemoglobin 8.7 g/dL (13.0-16.5); Lymphocyte # 0.94 X10^3/ul (4.0); Lymphocyte % 11.2 % (19-41); Mean Corp Hgb Conc 30.4 g/dL (32-36); Mean Corpuscular Hgb 30.2 pg (27.0-32.0); Mean Corpuscular Volume 99.3 fL (80-94); Mean Platelet Vol. 9.2 fl (6.2-12.0); Monocyte# 0.82 X10^3/uL; Monocyte% 9.8 % (0-10); NRBC Flagged by Analyzer 0 % (0-5); Neutrophil # 6.34 X10^3/uL (2.7-7.7); Neutrophil % 75.4 % (47-70); POSITIVE MORPHOLOGY YES; Platelet Count 322 K/mm3 (150-450); RBC Distribution Width CV 19.7 % (11.6-14.6); RBC Distribution Width SD 68.2 fl (35.1-43.9); Red Blood Count 2.88 M/mm3 (4.6-6.2); White Blood Count 8.4 K/mm3 (4.4-11.0)
[2020-01-13 12:56] LABS: Differential Indicated SCAN CRITERIA MET
[2020-01-13 14:19] LABS: Anisocytosis 2+; Platelet Estimate ADEQUATE (ADEQ); Red Cell Morphology N CHROM NORMAL (NORM C&C)
== END 2020-01-13 18:00 | disposition home or self-care (01) ==
LOC: HHLAB 12:23
PROVIDERS: PCP Internal Medicine; Referring Provider Internal Medicine Infectious Disease; Visit Provider Internal Medicine Infectious Disease
DX: T84.52XA Infection and inflammatory reaction due to internal left hip prosthesis, initial encounter (principal)
CPT/HCPCS: 85025

== ENCOUNTER 2020-02-03 11:56 | Outpatient (RCR) | payer MEDICARE, SELFPAY ==
[2020-01-12 22:46] VITALS: BMI 30.8
[2020-01-18 17:53] LABS: Absolute Lymphocyte Count 1.14 X10^3/uL (0.83-4.51); Basophil# 0.05 X10^3/uL; Basophil% 0.8 % (0-1); Eosinophil# 0.17 X10^3/uL; Eosinophils% 2.8 % (0-5); Erythrocyte Sedimentation Rate 17 mm/hr (0-20); Hematocrit 29.2 % (40-54); Hemoglobin 8.8 g/dL (13.0-16.5); Lymphocyte # 1.14 X10^3/ul (4.0); Lymphocyte % 18.8 % (19-41); Mean Corp Hgb Conc 30.1 g/dL (32-36); Mean Corpuscular Hgb 30.3 pg (27.0-32.0); Mean Corpuscular Volume 100.7 fL (80-94); Mean Platelet Vol. 9.7 fl (6.2-12.0); Monocyte# 0.66 X10^3/uL; Monocyte% 10.9 % (0-10); NRBC Flagged by Analyzer 0 % (0-5); Neutrophil # 3.99 X10^3/uL (2.7-7.7); POSITIVE MORPHOLOGY YES; Platelet Count 333 K/mm3 (150-450); RBC Distribution Width CV 19.7 % (11.6-14.6); RBC Distribution Width SD 67.7 fl (35.1-43.9); White Blood Count 6.1 K/mm3 (4.4-11.0)
[2020-01-18 18:00] LABS: AST(SGOT) 14 U/L (15-37); Alanine Aminotransfer ALT/SGPT 18 U/L (16-61); Albumin, Serum 3.3 g/dL (3.2-5.0); Alkaline Phosphatase 85 U/L (45-117); Anion Gap 8 (5-15); BUN 24 mg/dL (7-18); BUN/Creat Ratio 25.9 RATIO (10-20); Bilirubin, Direct 0.09 mg/dL (0.00-0.30); Calcium,Total 8.7 mg/dL (8.5-10.1); Chloride 108 mmol/L (98-107); Creatinine, Serum 0.93 mg/dL (0.70-1.30); EST Glomerular Filtration Rate 83 mL/min (>60); Est Glom Filt Rate - Afr Amer 100 mL/min (>60); Globulin 3.7 g/dL (2.2-4.2); Glucose 84 mg/dL (74-106); Potassium 4.5 mmol/L (3.5-5.1); Sodium Level 141 mmol/L (136-145)
[2020-01-18 18:20] LABS: Anisocytosis 2+; Differential Indicated SCAN CRITERIA MET; Hypochromasia 1+; Macrocytosis 1+; Platelet Estimate ADEQUATE (ADEQ); Polychromasia RARE
[2020-01-27 13:12] LABS: Absolute Lymphocyte Count 1.05 X10^3/uL (0.83-4.51); Absolute Neutrophil Count 3.3 X10^3/uL (2.0-7.7); Basophil# 0.05 X10^3/uL; Basophil% 0.9 % (0-1); Eosinophil# 0.26 X10^3/uL; Eosinophils% 4.9 % (0-5); Hematocrit 25.1 % (40-54); Hemoglobin 7.8 g/dL (13.0-16.5); Lymphocyte # 1.05 X10^3/ul (4.0); Lymphocyte % 19.6 % (19-41); Mean Corp Hgb Conc 31.1 g/dL (32-36); Mean Corpuscular Hgb 30.4 pg (27.0-32.0); Mean Corpuscular Volume 97.7 fL (80-94); Mean Platelet Vol. 9.9 fl (6.2-12.0); Monocyte# 0.68 X10^3/uL; Monocyte% 12.7 % (0-10); NRBC Flagged by Analyzer 0 % (0-5); Neutrophil % 61.5 % (47-70); POSITIVE MORPHOLOGY YES; Platelet Count 259 K/mm3 (150-450); RBC Distribution Width CV 19.8 % (11.6-14.6); RBC Distribution Width SD 67.7 fl (35.1-43.9); Red Blood Count 2.57 M/mm3 (4.6-6.2); White Blood Count 5.4 K/mm3 (4.4-11.0)
[2020-01-27 13:20] LABS: Differential Indicated SCAN CRITERIA MET
[2020-01-27 13:54] LABS: Anisocytosis 2+; Macrocytosis 1+; Red Cell Morphology N CHROM NORMAL (NORM C&C)
[2020-02-03 12:18] LABS: Erythrocyte Sedimentation Rate 60 mm/hr (0-20)
[2020-02-03 12:21] LABS: AST(SGOT) 10 U/L (15-37); Alanine Aminotransfer ALT/SGPT 14 U/L (16-61); Albumin, Serum 3.2 g/dL (3.2-5.0); Alkaline Phosphatase 81 U/L (45-117); Anion Gap 9 (5-15); BUN 28 mg/dL (7-18); BUN/Creat Ratio 24.6 RATIO (10-20); Calcium,Total 8.9 mg/dL (8.5-10.1); Chloride 107 mmol/L (98-107); Creatinine, Serum 1.14 mg/dL (0.70-1.30); EST Glomerular Filtration Rate 65 mL/min (>60); Est Glom Filt Rate - Afr Amer 79 mL/min (>60); Globulin 3.7 g/dL (2.2-4.2); Glucose 122 mg/dL (74-106); Potassium 3.7 mmol/L (3.5-5.1); Protein, Total 6.9 g/dL (6.4-8.2); Sodium Level 138 mmol/L (136-145)
[2020-02-03 12:28] LABS: Absolute Lymphocyte Count 0.89 X10^3/uL (0.83-4.51); Absolute Neutrophil Count 5.2 X10^3/uL (2.0-7.7); Basophil# 0.05 X10^3/uL; Basophil% 0.7 % (0-1); Eosinophil# 0.12 X10^3/uL; Eosinophils% 1.6 % (0-5); Hematocrit 22.2 % (40-54); Hemoglobin 6.9 g/dL (13.0-16.5); Lymphocyte # 0.89 X10^3/ul (4.0); Lymphocyte % 12.2 % (19-41); Mean Corp Hgb Conc 31.1 g/dL (32-36); Mean Corpuscular Hgb 30.3 pg (27.0-32.0); Mean Corpuscular Volume 97.4 fL (80-94); Mean Platelet Vol. 9.8 fl (6.2-12.0); Monocyte# 0.99 X10^3/uL; Monocyte% 13.6 % (0-10); NRBC Flagged by Analyzer 0 % (0-5); Neutrophil # 5.19 X10^3/uL (2.7-7.7); Neutrophil % 71.4 % (47-70); POSITIVE MORPHOLOGY YES; Platelet Count 271 K/mm3 (150-450); RBC Distribution Width CV 20.3 % (11.6-14.6); RBC Distribution Width SD 68.6 fl (35.1-43.9); Red Blood Count 2.28 M/mm3 (4.6-6.2); White Blood Count 7.3 K/mm3 (4.4-11.0)
[2020-02-03 13:07] LABS: Anisocytosis 1+
[2020-02-03 13:08] LABS: Hypochromasia 1+
[2020-02-03 13:11] LABS: Differential Indicated SCAN CRITERIA MET
== END 2020-02-03 18:00 | disposition home or self-care (01) ==
LOC: HHLAB 11:56
PROVIDERS: PCP Internal Medicine; Referring Provider Internal Medicine Infectious Disease; Visit Provider Internal Medicine Infectious Disease
DX: T84.52XA Infection and inflammatory reaction due to internal left hip prosthesis, initial encounter (principal)
CPT/HCPCS: 80048; 80076; 85025; 85652

== ENCOUNTER 2020-02-08 14:30 | Outpatient (RCR) | payer MEDICARE, SELFPAY ==
[2020-01-12 22:46] VITALS: BMI 30.8
[2020-01-13 00:31] VITALS: BP 149/91; PULSE 68; RESP 18; TEMP 36.2
[2020-01-25 13:44] LABS: Hematocrit 28.6 % (40-54); Hemoglobin 8.8 g/dL (13.0-16.5); Mean Corp Hgb Conc 30.8 g/dL (32-36); Mean Corpuscular Hgb 30.4 pg (27.0-32.0); Mean Platelet Vol. 9.7 fl (6.2-12.0); POSITIVE MORPHOLOGY YES; Platelet Count 267 K/mm3 (150-450); RBC Distribution Width CV 19.9 % (11.6-14.6); RBC Distribution Width SD 70.4 fl (35.1-43.9); Red Blood Count 2.89 M/mm3 (4.6-6.2); White Blood Count 6.8 K/mm3 (4.4-11.0)
[2020-01-25 13:50] LABS: Scan Indicated on CBC? Y/N YES- FLAGS NOTED
[2020-01-25 14:11] LABS: Differential Comment SCANNED
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
[2020-02-01 13:30] VITALS: BP 135/52; PULSE 86; RESP 18; TEMP 36.8; BMI 30.8
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
[2020-02-08 14:45] VITALS: BP 137/61; PULSE 78; RESP 16; TEMP 36.3; BMI 30.8
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
== END 2020-02-12 23:59 ==
LOC: WC 14:30
PROVIDERS: Family Medicine; PCP Internal Medicine; Visit Provider Surgery
DX: T84.52XA Infection and inflammatory reaction due to internal left hip prosthesis, initial encounter (principal); T81.31XA Disruption of external operation (surgical) wound, not elsewhere classified, initial encounter; S70.02XD Contusion of left hip, subsequent encounter; V49.9XXD Car occupant (driver) (passenger) injured in unspecified traffic accident, subsequent encounter; Y83.8 Other surgical procedures as the cause of abnormal reaction of the patient, or of later complication, without mention of misadventure at the time of the procedure; M97.02XA 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, initial encounter; Z86.718 Personal history of other venous thrombosis and embolism
CPT/HCPCS: 11043; 11046; 85027; 97606

== ENCOUNTER 2020-03-07 14:15 | Outpatient (RCR) | payer MEDICARE, SELFPAY ==
[2020-02-22 13:31] VITALS: BP 140/63; PULSE 76; RESP 18; TEMP 36.4; BMI 30.8
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
[2020-03-07 14:15] VITALS: BP 140/63; PULSE 75; RESP 20; TEMP 36.8; BMI 30.8
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
== END 2020-03-14 23:59 ==
LOC: WC 14:15
PROVIDERS: PCP Internal Medicine; Visit Provider Nurse Practitioner Family
DX: L97.826 Non-pressure chronic ulcer of other part of left lower leg with bone involvement without evidence of necrosis (principal); L97.122 Non-pressure chronic ulcer of left thigh with fat layer exposed; T81.31XA Disruption of external operation (surgical) wound, not elsewhere classified, initial encounter; T84.52XA Infection and inflammatory reaction due to internal left hip prosthesis, initial encounter; M97.02XA 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, initial encounter; Y83.8 Other surgical procedures as the cause of abnormal reaction of the patient, or of later complication, without mention of misadventure at the time of the procedure; Z79.899 Other long term (current) drug therapy; Z86.718 Personal history of other venous thrombosis and embolism
CPT/HCPCS: 11043; 11046; 97606

== ENCOUNTER 2020-03-09 11:42 | Outpatient (RCR) | payer MEDICARE, SELFPAY ==
[2020-02-15 12:55] LABS: Erythrocyte Sedimentation Rate 53 mm/hr (0-20)
[2020-02-15 12:56] LABS: Absolute Lymphocyte Count 0.88 X10^3/uL (0.83-4.51); Absolute Neutrophil Count 4.6 X10^3/uL (2.0-7.7); Basophil# 0.03 X10^3/uL; Basophil% 0.5 % (0-1); Eosinophil# 0.26 X10^3/uL; Eosinophils% 4.1 % (0-5); Hematocrit 28.7 % (40-54); Lymphocyte # 0.88 X10^3/ul (4.0); Lymphocyte % 13.8 % (19-41); Mean Corp Hgb Conc 31.4 g/dL (32-36); Mean Corpuscular Hgb 30.7 pg (27.0-32.0); Mean Platelet Vol. 9.6 fl (6.2-12.0); Monocyte# 0.62 X10^3/uL; Monocyte% 9.7 % (0-10); NRBC Flagged by Analyzer 0 % (0-5); Neutrophil # 4.58 X10^3/uL (2.7-7.7); Neutrophil % 71.4 % (47-70); POSITIVE MORPHOLOGY YES; Platelet Count 299 K/mm3 (150-450); RBC Distribution Width SD 68.4 fl (35.1-43.9); Red Blood Count 2.93 M/mm3 (4.6-6.2); White Blood Count 6.4 K/mm3 (4.4-11.0)
[2020-02-15 13:00] LABS: Differential Indicated SCAN CRITERIA MET
[2020-02-15 13:15] LABS: AST(SGOT) 15 U/L (15-37); Alanine Aminotransfer ALT/SGPT 17 U/L (16-61); Albumin, Serum 3.2 g/dL (3.2-5.0); Alkaline Phosphatase 89 U/L (45-117); Anion Gap 8 (5-15); BUN 24 mg/dL (7-18); BUN/Creat Ratio 24.1 RATIO (10-20); Bilirubin, Direct 0.09 mg/dL (0.00-0.30); Calcium,Total 8.9 mg/dL (8.5-10.1); Chloride 107 mmol/L (98-107); EST Glomerular Filtration Rate 76 mL/min (>60); Est Glom Filt Rate - Afr Amer 92 mL/min (>60); Globulin 3.9 g/dL (2.2-4.2); Glucose 87 mg/dL (74-106); Potassium 4.3 mmol/L (3.5-5.1); Protein, Total 7.1 g/dL (6.4-8.2); Sodium Level 140 mmol/L (136-145)
[2020-02-15 13:27] LABS: Anisocytosis 2+; Hypochromasia 2+; Platelet Estimate ADEQUATE (ADEQ)
[2020-02-26 14:57] LABS: ALB/GLOB Ratio 0.9 RATIO (0.9-2.4); AST(SGOT) 16 U/L (15-37); Alanine Aminotransfer ALT/SGPT 20 U/L (16-61); Albumin, Serum 3.3 g/dL (3.2-5.0); Alkaline Phosphatase 86 U/L (45-117); Anion Gap 9 (5-15); BUN 25 mg/dL (7-18); BUN/Creat Ratio 28.5 RATIO (10-20); Calcium,Total 9.1 mg/dL (8.5-10.1); Chloride 107 mmol/L (98-107); Cholesterol 131 mg/dL (200); Creatinine, Serum 0.88 mg/dL (0.70-1.30); EST Glomerular Filtration Rate 88 mL/min (>60); Est Glom Filt Rate - Afr Amer 107 mL/min (>60); Globulin 3.8 g/dL (2.2-4.2); Glucose 84 mg/dL (74-106); High Density Lipoprotein 42 mg/dL; PSA,Total - Annual Screen 7.36 ng/mL (0.00-4.00); Potassium 4.3 mmol/L (3.5-5.1); Protein, Total 7.1 g/dL (6.4-8.2); Sodium Level 141 mmol/L (136-145); Thyroid Stim Hormone (TSH) 2.86 uIU/mL (0.358-3.74); Triglycerides 164 mg/dL; Very Low Density Lipoprotein 33 mg/dL (5-40)
[2020-02-26 16:16] LABS: Absolute Lymphocyte Count 0.87 X10^3/uL (0.83-4.51); Absolute Neutrophil Count 3.8 X10^3/uL (2.0-7.7); Basophil# 0.06 X10^3/uL; Eosinophil# 0.38 X10^3/uL; Eosinophils% 6.4 % (0-5); Hematocrit 25.6 % (40-54); Lymphocyte # 0.87 X10^3/ul (4.0); Lymphocyte % 14.6 % (19-41); Mean Corp Hgb Conc 31.3 g/dL (32-36); Mean Corpuscular Hgb 30.2 pg (27.0-32.0); Mean Corpuscular Volume 96.6 fL (80-94); Mean Platelet Vol. 10.2 fl (6.2-12.0); Monocyte# 0.84 X10^3/uL; Monocyte% 14.1 % (0-10); NRBC Flagged by Analyzer 0 % (0-5); Neutrophil # 3.77 X10^3/uL (2.7-7.7); Neutrophil % 63.4 % (47-70); POSITIVE MORPHOLOGY YES; Platelet Count 295 K/mm3 (150-450); RBC Distribution Width SD 68.9 fl (35.1-43.9); Red Blood Count 2.65 M/mm3 (4.6-6.2)
[2020-02-26 16:35] LABS: Differential Indicated SCAN CRITERIA MET
[2020-02-26 17:08] LABS: Anisocytosis 1+; Differential Comment SCANNED; Hypochromasia RARE
[2020-02-26 17:09] LABS: Erythrocyte Sedimentation Rate 33 mm/hr (0-20)
[2020-02-29 14:34] LABS: Absolute Lymphocyte Count 0.67 X10^3/uL (0.83-4.51); Absolute Neutrophil Count 4.2 X10^3/uL (2.0-7.7); Basophil# 0.07 X10^3/uL; Basophil% 1.1 % (0-1); Eosinophil# 0.43 X10^3/uL; Eosinophils% 6.6 % (0-5); Hematocrit 24.2 % (40-54); Hemoglobin 7.5 g/dL (13.0-16.5); Lymphocyte # 0.67 X10^3/ul (4.0); Lymphocyte % 10.4 % (19-41); Mean Corpuscular Hgb 30.4 pg (27.0-32.0); Mean Platelet Vol. 10.3 fl (6.2-12.0); Monocyte# 0.95 X10^3/uL; Monocyte% 14.7 % (0-10); NRBC Flagged by Analyzer 0.6 % (0-5); Neutrophil # 4.22 X10^3/uL (2.7-7.7); Neutrophil % 65.2 % (47-70); POSITIVE MORPHOLOGY YES; Platelet Count 294 K/mm3 (150-450); RBC Distribution Width CV 19.9 % (11.6-14.6); RBC Distribution Width SD 69.3 fl (35.1-43.9); Red Blood Count 2.47 M/mm3 (4.6-6.2); White Blood Count 6.5 K/mm3 (4.4-11.0)
[2020-02-29 14:36] LABS: Differential Indicated SCAN CRITERIA MET
[2020-02-29 14:42] LABS: AST(SGOT) 18 U/L (15-37); Alanine Aminotransfer ALT/SGPT 21 U/L (16-61); Albumin, Serum 3.2 g/dL (3.2-5.0); Alkaline Phosphatase 95 U/L (45-117); Anion Gap 6 (5-15); BUN 19 mg/dL (7-18); BUN/Creat Ratio 19.7 RATIO (10-20); Bilirubin, Direct 0.06 mg/dL (0.00-0.30); Calcium,Total 8.7 mg/dL (8.5-10.1); Chloride 109 mmol/L (98-107); Creatinine, Serum 0.96 mg/dL (0.70-1.30); EST Glomerular Filtration Rate 79 mL/min (>60); Est Glom Filt Rate - Afr Amer 96 mL/min (>60); Globulin 3.8 g/dL (2.2-4.2); Glucose 126 mg/dL (74-106); Potassium 3.8 mmol/L (3.5-5.1); Sodium Level 142 mmol/L (136-145)
[2020-02-29 14:44] LABS: Erythrocyte Sedimentation Rate 26 mm/hr (0-20)
[2020-03-09 14:13] LABS: Absolute Lymphocyte Count 1.07 X10^3/uL (0.83-4.51); Basophil# 0.09 X10^3/uL; Basophil% 1.7 % (0-1); Eosinophil# 0.42 X10^3/uL; Eosinophils% 8.1 % (0-5); Hematocrit 28.2 % (40-54); Hemoglobin 8.4 g/dL (13.0-16.5); Lymphocyte # 1.07 X10^3/ul (4.0); Lymphocyte % 20.7 % (19-41); Mean Corp Hgb Conc 29.8 g/dL (32-36); Mean Corpuscular Volume 100.7 fL (80-94); Mean Platelet Vol. 9.4 fl (6.2-12.0); Monocyte# 0.55 X10^3/uL; Monocyte% 10.6 % (0-10); NRBC Flagged by Analyzer 0 % (0-5); Neutrophil # 3.03 X10^3/uL (2.7-7.7); Neutrophil % 58.5 % (47-70); POSITIVE MORPHOLOGY YES; Platelet Count 421 K/mm3 (150-450); RBC Distribution Width CV 21.2 % (11.6-14.6); RBC Distribution Width SD 76.1 fl (35.1-43.9); White Blood Count 5.2 K/mm3 (4.4-11.0)
[2020-03-09 14:35] LABS: Differential Indicated SCAN CRITERIA MET
[2020-03-09 14:53] LABS: Differential Comment SCANNED
[2020-03-09 14:54] LABS: Anisocytosis 2+
[2020-03-09 16:39] LABS: Platelet Estimate ADEQUATE (ADEQ); Red Cell Morphology N CHROM NORMAL (NORM C&C)
== END 2020-03-14 18:00 | disposition home or self-care (01) ==
LOC: HHLAB 11:42
PROVIDERS: PCP Internal Medicine; Referring Provider Internal Medicine Infectious Disease; Visit Provider Internal Medicine Infectious Disease
DX: T84.52XA Infection and inflammatory reaction due to internal left hip prosthesis, initial encounter (principal); D50.9 Iron deficiency anemia, unspecified; I10 Essential (primary) hypertension; Z12.5 Encounter for screening for malignant neoplasm of prostate
CPT/HCPCS: 80048; 80053; 80061; 80076; 82248; 84153; 84443; 85025; 85652; G0103

== ENCOUNTER 2020-03-28 13:10 | Outpatient (RCR) | payer MEDICARE, SELFPAY ==
[2020-03-15 00:48] VITALS: BP 140/63; PULSE 75; RESP 20; TEMP 36.8
[2020-03-28 13:33] VITALS: BP 166/74; PULSE 84; TEMP 36.1; BMI 30.8
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
--- NOTE | 2020-04-04 15:28 | WC ---
Received abnormal lab results, contacted pt PCP to insure that they had also received the results.
== END 2020-04-13 23:59 ==
LOC: WC 13:10
PROVIDERS: PCP Internal Medicine; Visit Provider Nurse Practitioner Family
DX: L97 Non-pressure chronic ulcer of lower limb, not elsewhere classified (principal); S72.002S Fracture of unspecified part of neck of left femur, sequela; M97.02XS Periprosthetic fracture around internal prosthetic left hip joint, sequela; V89.2XXS Person injured in unspecified motor-vehicle accident, traffic, sequela; Z96.642 Presence of left artificial hip joint; Z79.899 Other long term (current) drug therapy; Z86.718 Personal history of other venous thrombosis and embolism
CPT/HCPCS: 11043; 11046; 97605

== ENCOUNTER 2020-04-04 12:51 | Outpatient (RCR) | payer MEDICARE, SELFPAY ==
[2020-03-16 12:21] LABS: Absolute Lymphocyte Count 0.93 X10^3/uL (0.83-4.51); Absolute Neutrophil Count 2.9 X10^3/uL (2.0-7.7); Basophil# 0.06 X10^3/uL; Basophil% 1.2 % (0-1); Eosinophil# 0.29 X10^3/uL; Hematocrit 24.9 % (40-54); Hemoglobin 7.8 g/dL (13.0-16.5); Lymphocyte # 0.93 X10^3/ul (4.0); Lymphocyte % 19.3 % (19-41); Mean Corp Hgb Conc 31.3 g/dL (32-36); Mean Corpuscular Volume 98.8 fL (80-94); Monocyte# 0.61 X10^3/uL; Monocyte% 12.6 % (0-10); NRBC Flagged by Analyzer 0 % (0-5); Neutrophil # 2.92 X10^3/uL (2.7-7.7); Neutrophil % 60.5 % (47-70); POSITIVE MORPHOLOGY YES; Platelet Count 259 K/mm3 (150-450); RBC Distribution Width CV 20.2 % (11.6-14.6); RBC Distribution Width SD 73.1 fl (35.1-43.9); Red Blood Count 2.52 M/mm3 (4.6-6.2); White Blood Count 4.8 K/mm3 (4.4-11.0)
[2020-03-16 12:36] LABS: AST(SGOT) 14 U/L (15-37); Alanine Aminotransfer ALT/SGPT 14 U/L (16-61); Albumin, Serum 3.2 g/dL (3.2-5.0); Alkaline Phosphatase 82 U/L (45-117); Anion Gap 6 (5-15); BUN 16 mg/dL (7-18); BUN/Creat Ratio 17.9 RATIO (10-20); Bilirubin, Direct 0.06 mg/dL (0.00-0.30); Calcium,Total 9.1 mg/dL (8.5-10.1); Chloride 108 mmol/L (98-107); Creatinine, Serum 0.89 mg/dL (0.70-1.30); Differential Indicated SCAN CRITERIA MET; EST Glomerular Filtration Rate 86 mL/min (>60); Est Glom Filt Rate - Afr Amer 104 mL/min (>60); Globulin 3.9 g/dL (2.2-4.2); Glucose 87 mg/dL (74-106); Potassium 4.4 mmol/L (3.5-5.1); Protein, Total 7.1 g/dL (6.4-8.2); Sodium Level 139 mmol/L (136-145)
[2020-03-16 12:37] LABS: Erythrocyte Sedimentation Rate 44 mm/hr (0-20)
[2020-03-16 13:06] LABS: Anisocytosis 2+; Platelet Estimate ADEQUATE (ADEQ); Red Cell Morphology N CHROM NORMAL (NORM C&C)
[2020-03-23 12:46] LABS: Absolute Lymphocyte Count 1.08 X10^3/uL (0.83-4.51); Absolute Neutrophil Count 2.8 X10^3/uL (2.0-7.7); Basophil# 0.05 X10^3/uL; Eosinophils% 6.1 % (0-5); Hematocrit 24.9 % (40-54); Hemoglobin 7.7 g/dL (13.0-16.5); Lymphocyte # 1.08 X10^3/ul (4.0); Mean Corp Hgb Conc 30.9 g/dL (32-36); Mean Corpuscular Hgb 30.4 pg (27.0-32.0); Mean Corpuscular Volume 98.4 fL (80-94); Mean Platelet Vol. 9.4 fl (6.2-12.0); Monocyte# 0.71 X10^3/uL; Monocyte% 14.4 % (0-10); NRBC Flagged by Analyzer 0 % (0-5); Neutrophil # 2.75 X10^3/uL (2.7-7.7); Neutrophil % 55.9 % (47-70); POSITIVE MORPHOLOGY YES; Platelet Count 322 K/mm3 (150-450); RBC Distribution Width CV 20.3 % (11.6-14.6); RBC Distribution Width SD 72.2 fl (35.1-43.9); Red Blood Count 2.53 M/mm3 (4.6-6.2); White Blood Count 4.9 K/mm3 (4.4-11.0)
[2020-03-23 12:47] LABS: Differential Indicated SCAN CRITERIA MET
[2020-03-23 13:25] LABS: Anisocytosis 1+; Platelet Estimate ADEQUATE (ADEQ); Red Cell Morphology N CHROM NORMAL (NORM C&C)
[2020-03-30 10:23] LABS: Erythrocyte Sedimentation Rate 43 mm/hr (0-20)
[2020-03-30 11:16] LABS: AST(SGOT) 13 U/L (15-37); Alanine Aminotransfer ALT/SGPT 16 U/L (16-61); Albumin, Serum 3.4 g/dL (3.2-5.0); Alkaline Phosphatase 92 U/L (45-117); Anion Gap 10 (5-15); BUN 15 mg/dL (7-18); BUN/Creat Ratio 16.8 RATIO (10-20); Bilirubin, Direct 0.07 mg/dL (0.00-0.30); Calcium,Total 9.2 mg/dL (8.5-10.1); Chloride 104 mmol/L (98-107); Creatinine, Serum 0.89 mg/dL (0.70-1.30); EST Glomerular Filtration Rate 86 mL/min (>60); Est Glom Filt Rate - Afr Amer 104 mL/min (>60); Globulin 3.9 g/dL (2.2-4.2); Glucose 83 mg/dL (74-106); Potassium 3.9 mmol/L (3.5-5.1); Protein, Total 7.3 g/dL (6.4-8.2); Sodium Level 138 mmol/L (136-145)
[2020-04-04 13:21] LABS: Erythrocyte Sedimentation Rate 44 mm/hr (0-20)
[2020-04-04 13:26] LABS: Absolute Lymphocyte Count 1.05 X10^3/uL (0.83-4.51); Absolute Neutrophil Count 2.9 X10^3/uL (2.0-7.7); Basophil# 0.05 X10^3/uL; Eosinophil# 0.22 X10^3/uL; Eosinophils% 4.4 % (0-5); Hematocrit 22.2 % (40-54); Lymphocyte # 1.05 X10^3/ul (4.0); Mean Corp Hgb Conc 31.5 g/dL (32-36); Mean Corpuscular Hgb 30.6 pg (27.0-32.0); Mean Corpuscular Volume 96.9 fL (80-94); Mean Platelet Vol. 9.5 fl (6.2-12.0); Monocyte# 0.72 X10^3/uL; Monocyte% 14.4 % (0-10); NRBC Flagged by Analyzer 0 % (0-5); Neutrophil # 2.94 X10^3/uL (2.7-7.7); Neutrophil % 58.8 % (47-70); POSITIVE MORPHOLOGY YES; Platelet Count 306 K/mm3 (150-450); RBC Distribution Width CV 20.3 % (11.6-14.6); RBC Distribution Width SD 71.3 fl (35.1-43.9); Red Blood Count 2.29 M/mm3 (4.6-6.2)
[2020-04-04 13:29] LABS: Differential Indicated SCAN CRITERIA MET
[2020-04-04 14:11] LABS: Anisocytosis 2+; Hypochromasia 2+
[2020-04-04 14:16] LABS: AST(SGOT) 14 U/L (15-37); Alanine Aminotransfer ALT/SGPT 14 U/L (16-61); Albumin, Serum 3.3 g/dL (3.2-5.0); Alkaline Phosphatase 90 U/L (45-117); Anion Gap 12 (5-15); BUN 13 mg/dL (7-18); BUN/Creat Ratio 14.8 RATIO (10-20); Bilirubin, Direct 0.07 mg/dL (0.00-0.30); Calcium,Total 9.5 mg/dL (8.5-10.1); Chloride 105 mmol/L (98-107); Creatinine, Serum 0.88 mg/dL (0.70-1.30); EST Glomerular Filtration Rate 88 mL/min (>60); Est Glom Filt Rate - Afr Amer 106 mL/min (>60); Globulin 3.9 g/dL (2.2-4.2); Glucose 77 mg/dL (74-106); Potassium 4.3 mmol/L (3.5-5.1); Protein, Total 7.2 g/dL (6.4-8.2); Sodium Level 140 mmol/L (136-145)
== END 2020-04-13 23:59 ==
LOC: HHLAB 12:51
PROVIDERS: PCP Internal Medicine; Referring Provider Internal Medicine Infectious Disease; Visit Provider Internal Medicine Infectious Disease
DX: T84.52XD Infection and inflammatory reaction due to internal left hip prosthesis, subsequent encounter (principal); B95.62 Methicillin resistant Staphylococcus aureus infection as the cause of diseases classified elsewhere
CPT/HCPCS: 80048; 80076; 85025; 85652

== ENCOUNTER 2020-04-13 12:35 | Outpatient (RCR) | payer MEDICARE, SELFPAY ==
[2020-04-13 13:23] LABS: Absolute Lymphocyte Count 0.91 X10^3/uL (0.83-4.51); Absolute Neutrophil Count 2.9 X10^3/uL (2.0-7.7); Basophil# 0.03 X10^3/uL; Basophil% 0.6 % (0-1); Eosinophil# 0.18 X10^3/uL; Eosinophils% 3.9 % (0-5); Hematocrit 18.4 % (40-54); Lymphocyte # 0.91 X10^3/ul (4.0); Lymphocyte % 19.7 % (19-41); Mean Corpuscular Hgb 30.2 pg (27.0-32.0); Mean Corpuscular Volume 97.4 fL (80-94); Mean Platelet Vol. 9.4 fl (6.2-12.0); Monocyte# 0.59 X10^3/uL; Monocyte% 12.8 % (0-10); NRBC Flagged by Analyzer 0.4 % (0-5); Neutrophil # 2.89 X10^3/uL (2.7-7.7); Neutrophil % 62.6 % (47-70); POSITIVE COUNT YES; POSITIVE MORPHOLOGY YES; Platelet Count 312 K/mm3 (150-450); RBC Distribution Width CV 21.2 % (11.6-14.6); RBC Distribution Width SD 73.5 fl (35.1-43.9); Red Blood Count 1.89 M/mm3 (4.6-6.2); White Blood Count 4.6 K/mm3 (4.4-11.0)
[2020-04-13 13:26] LABS: AST(SGOT) 10 U/L (15-37); Alanine Aminotransfer ALT/SGPT 16 U/L (16-61); Albumin, Serum 3.2 g/dL (3.2-5.0); Alkaline Phosphatase 86 U/L (45-117); Anion Gap 7 (5-15); BUN 14 mg/dL (7-18); BUN/Creat Ratio 16.6 RATIO (10-20); Bilirubin, Direct 0.08 mg/dL (0.00-0.30); Chloride 103 mmol/L (98-107); Creatinine, Serum 0.84 mg/dL (0.70-1.30); EST Glomerular Filtration Rate 92 mL/min (>60); Est Glom Filt Rate - Afr Amer 112 mL/min (>60); Globulin 3.8 g/dL (2.2-4.2); Glucose 107 mg/dL (74-106); Potassium 4.5 mmol/L (3.5-5.1); Sodium Level 135 mmol/L (136-145)
[2020-04-13 13:34] LABS: Differential Indicated SCAN CRITERIA MET; Hemoglobin 5.7 g/dL (13.0-16.5)
[2020-04-13 13:40] LABS: Erythrocyte Sedimentation Rate 34 mm/hr (0-20)
[2020-04-13 14:06] LABS: Anisocytosis 1+
[2020-04-14 10:52] LABS: Reticulocyte Count 1.98 % (0.5-1.5)
[2020-04-15 12:23] LABS: Pathologist Review Reviewed
== END 2020-04-13 23:59 ==
LOC: HHLAB 12:35
PROVIDERS: PCP Internal Medicine; Referring Provider Internal Medicine Infectious Disease; Visit Provider Internal Medicine Infectious Disease
DX: T84.52XA Infection and inflammatory reaction due to internal left hip prosthesis, initial encounter (principal)
CPT/HCPCS: 80048; 80076; 85025; 85045; 85652

== ENCOUNTER 2020-05-02 13:00 | Outpatient (RCR) | payer MEDICARE, SELFPAY ==
[2020-04-14 00:38] VITALS: BP 166/74; PULSE 84; RESP 20; TEMP 36.1
[2020-04-18 12:59] VITALS: BP 144/76; PULSE 78; RESP 18; TEMP 36.4; BMI 30.8
[2020-04-18 13:40] VITALS: BP 114/63; RESP 16
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
[2020-05-02 13:02] VITALS: BP 147/44; PULSE 78; RESP 16; TEMP 36.7; BMI 30.8
[2020-05-02 13:43] VITALS: BP 126/68; PULSE 7
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
== END 2020-05-14 23:59 ==
LOC: WC 13:00
PROVIDERS: PCP Internal Medicine; Visit Provider Nurse Practitioner Family
DX: L97.829 Non-pressure chronic ulcer of other part of left lower leg with unspecified severity (principal); D64.9 Anemia, unspecified
CPT/HCPCS: 11043; 11046; 97605

== ENCOUNTER 2020-05-09 10:38 | Outpatient (RCR) | payer MEDICARE, SELFPAY ==
[2020-04-18 12:59] VITALS: BMI 30.8
[2020-04-20 15:13] LABS: Hematocrit 27.9 % (40-54); Hemoglobin 8.9 g/dL (13.0-16.5); Mean Corp Hgb Conc 31.9 g/dL (32-36); Mean Corpuscular Hgb 30.3 pg (27.0-32.0); Mean Corpuscular Volume 94.9 fL (80-94); Mean Platelet Vol. 9.8 fl (6.2-12.0); Platelet Count 346 K/mm3 (150-450); RBC Distribution Width CV 18.8 % (11.6-14.6); RBC Distribution Width SD 61.1 fl (35.1-43.9); Red Blood Count 2.94 M/mm3 (4.6-6.2); White Blood Count 5.5 K/mm3 (4.4-11.0)
[2020-04-20 15:27] LABS: Anion Gap 10 (5-15); BUN 13 mg/dL (7-18); BUN/Creat Ratio 15.5 RATIO (10-20); Chloride 101 mmol/L (98-107); Creatinine, Serum 0.84 mg/dL (0.70-1.30); EST Glomerular Filtration Rate 93 mL/min (>60); Est Glom Filt Rate - Afr Amer 112 mL/min (>60); Glucose 79 mg/dL (74-106); Potassium 4.2 mmol/L (3.5-5.1); Sodium Level 137 mmol/L (136-145)
[2020-04-27 14:01] LABS: Erythrocyte Sedimentation Rate 43 mm/hr (0-20)
[2020-04-27 14:04] LABS: Absolute Lymphocyte Count 1.18 X10^3/uL (0.83-4.51); Absolute Neutrophil Count 3.1 X10^3/uL (2.0-7.7); Basophil# 0.08 X10^3/uL; Basophil% 1.5 % (0-1); Eosinophil# 0.24 X10^3/uL; Eosinophils% 4.6 % (0-5); Hematocrit 29.6 % (40-54); Hemoglobin 8.8 g/dL (13.0-16.5); Lymphocyte # 1.18 X10^3/ul (4.0); Lymphocyte % 22.4 % (19-41); Mean Corp Hgb Conc 29.7 g/dL (32-36); Mean Corpuscular Hgb 29.3 pg (27.0-32.0); Mean Corpuscular Volume 98.7 fL (80-94); Mean Platelet Vol. 9.6 fl (6.2-12.0); Monocyte# 0.66 X10^3/uL; Monocyte% 12.5 % (0-10); NRBC Flagged by Analyzer 0 % (0-5); Neutrophil % 58.8 % (47-70); POSITIVE MORPHOLOGY YES; Platelet Count 310 K/mm3 (150-450); RBC Distribution Width SD 69.7 fl (35.1-43.9); White Blood Count 5.3 K/mm3 (4.4-11.0)
[2020-04-27 14:06] LABS: AST(SGOT) 11 U/L (15-37); Alanine Aminotransfer ALT/SGPT 17 U/L (16-61); Albumin, Serum 3.3 g/dL (3.2-5.0); Alkaline Phosphatase 93 U/L (45-117); Anion Gap 11 (5-15); BUN 17 mg/dL (7-18); BUN/Creat Ratio 17.9 RATIO (10-20); Bilirubin, Direct 0.09 mg/dL (0.00-0.30); Calcium,Total 9.1 mg/dL (8.5-10.1); Chloride 105 mmol/L (98-107); Creatinine, Serum 0.95 mg/dL (0.70-1.30); EST Glomerular Filtration Rate 80 mL/min (>60); Est Glom Filt Rate - Afr Amer 97 mL/min (>60); Glucose 130 mg/dL (74-106); Potassium 3.8 mmol/L (3.5-5.1); Protein, Total 7.3 g/dL (6.4-8.2); Sodium Level 138 mmol/L (136-145)
[2020-04-27 14:07] LABS: Differential Indicated SCAN CRITERIA MET
[2020-04-27 14:41] LABS: Anisocytosis 1+
[2020-05-03 15:05] LABS: Absolute Lymphocyte Count 1.06 X10^3/uL (0.83-4.51); Absolute Neutrophil Count 3.2 X10^3/uL (2.0-7.7); Basophil# 0.06 X10^3/uL; Basophil% 1.1 % (0-1); Eosinophil# 0.21 X10^3/uL; Hematocrit 26.9 % (40-54); Hemoglobin 8.2 g/dL (13.0-16.5); Lymphocyte # 1.06 X10^3/ul (4.0); Lymphocyte % 20.2 % (19-41); Mean Corp Hgb Conc 30.5 g/dL (32-36); Mean Corpuscular Hgb 29.7 pg (27.0-32.0); Mean Corpuscular Volume 97.5 fL (80-94); Mean Platelet Vol. 10.5 fl (6.2-12.0); Monocyte# 0.69 X10^3/uL; Monocyte% 13.2 % (0-10); NRBC Flagged by Analyzer 0 % (0-5); Neutrophil # 3.19 X10^3/uL (2.7-7.7); Neutrophil % 60.9 % (47-70); POSITIVE MORPHOLOGY YES; Platelet Count 299 K/mm3 (150-450); RBC Distribution Width CV 20.1 % (11.6-14.6); RBC Distribution Width SD 69.4 fl (35.1-43.9); Red Blood Count 2.76 M/mm3 (4.6-6.2); White Blood Count 5.2 K/mm3 (4.4-11.0)
[2020-05-03 15:07] LABS: Differential Indicated SCAN CRITERIA MET
[2020-05-03 15:43] LABS: Anisocytosis 2+; Poikilocytosis 1+
[2020-05-09 11:01] LABS: Erythrocyte Sedimentation Rate 50 mm/hr (0-20)
[2020-05-09 11:02] LABS: Absolute Lymphocyte Count 1.02 X10^3/uL (0.83-4.51); Absolute Neutrophil Count 2.9 X10^3/uL (2.0-7.7); Basophil# 0.05 X10^3/uL; Differential Indicated SCAN CRITERIA MET; Eosinophil# 0.22 X10^3/uL; Eosinophils% 4.5 % (0-5); Hematocrit 25.5 % (40-54); Lymphocyte # 1.02 X10^3/ul (4.0); Lymphocyte % 20.9 % (19-41); Mean Corp Hgb Conc 31.4 g/dL (32-36); Mean Corpuscular Hgb 30.3 pg (27.0-32.0); Mean Corpuscular Volume 96.6 fL (80-94); Mean Platelet Vol. 9.9 fl (6.2-12.0); Monocyte# 0.67 X10^3/uL; Monocyte% 13.8 % (0-10); NRBC Flagged by Analyzer 0 % (0-5); Neutrophil # 2.87 X10^3/uL (2.7-7.7); POSITIVE MORPHOLOGY YES; Platelet Count 341 K/mm3 (150-450); RBC Distribution Width CV 20.5 % (11.6-14.6); Red Blood Count 2.64 M/mm3 (4.6-6.2); White Blood Count 4.9 K/mm3 (4.4-11.0)
[2020-05-09 11:13] LABS: BUN 16 mg/dL (7-18); Creatinine, Serum 0.87 mg/dL (0.70-1.30); Glucose 87 mg/dL (74-106)
[2020-05-09 11:14] LABS: AST(SGOT) 13 U/L (15-37); Alanine Aminotransfer ALT/SGPT 16 U/L (16-61); Albumin, Serum 3.2 g/dL (3.2-5.0); Alkaline Phosphatase 95 U/L (45-117); Anion Gap 10 (5-15); BUN/Creat Ratio 18.5 RATIO (10-20); Bilirubin, Direct 0.11 mg/dL (0.00-0.30); Calcium,Total 9.3 mg/dL (8.5-10.1); Chloride 107 mmol/L (98-107); EST Glomerular Filtration Rate 89 mL/min (>60); Est Glom Filt Rate - Afr Amer 108 mL/min (>60); Potassium 4.1 mmol/L (3.5-5.1); Protein, Total 7.2 g/dL (6.4-8.2); Sodium Level 141 mmol/L (136-145)
[2020-05-09 11:24] LABS: Anisocytosis 2+; Hypochromasia 2+; Macrocytosis 1+; Platelet Estimate ADEQUATE (ADEQ)
== END 2020-05-09 18:00 | disposition home or self-care (01) ==
LOC: HHLAB 10:38
PROVIDERS: PCP Internal Medicine; Referring Provider Internal Medicine Infectious Disease; Visit Provider Internal Medicine Infectious Disease
DX: T84.52XA Infection and inflammatory reaction due to internal left hip prosthesis, initial encounter (principal); B95.62 Methicillin resistant Staphylococcus aureus infection as the cause of diseases classified elsewhere
CPT/HCPCS: 80048; 80076; 85025; 85027; 85652

== ENCOUNTER → 2020-05-18 | Outpatient (CLI) | payer MEDICARE, SELFPAY ==
[2020-05-16 13:05] VITALS: BMI 30.8
[2020-05-18 12:52] LABS: Erythrocyte Sedimentation Rate 35 mm/hr (0-20)
[2020-05-18 13:21] LABS: AST(SGOT) 12 U/L (15-37); Alanine Aminotransfer ALT/SGPT 19 U/L (16-61); Albumin, Serum 3.4 g/dL (3.2-5.0); Alkaline Phosphatase 100 U/L (45-117); Anion Gap 9 (5-15); BUN 19 mg/dL (7-18); BUN/Creat Ratio 21.9 RATIO (10-20); Calcium,Total 9.5 mg/dL (8.5-10.1); Chloride 107 mmol/L (98-107); Creatinine, Serum 0.87 mg/dL (0.70-1.30); EST Glomerular Filtration Rate 89 mL/min (>60); Est Glom Filt Rate - Afr Amer 108 mL/min (>60); Glucose 85 mg/dL (74-106); Protein, Total 7.4 g/dL (6.4-8.2); Sodium Level 139 mmol/L (136-145)
[2020-05-18 16:00] LABS: Absolute Lymphocyte Count 1.25 X10^3/uL (0.83-4.51); Basophil# 0.06 X10^3/uL; Basophil% 1.2 % (0-1); Eosinophil# 0.19 X10^3/uL; Eosinophils% 3.7 % (0-5); Hematocrit 25.3 % (40-54); Hemoglobin 7.8 g/dL (13.0-16.5); Lymphocyte # 1.25 X10^3/ul (4.0); Lymphocyte % 24.7 % (19-41); Mean Corp Hgb Conc 30.8 g/dL (32-36); Mean Corpuscular Volume 97.3 fL (80-94); Mean Platelet Vol. 9.5 fl (6.2-12.0); Monocyte# 0.57 X10^3/uL; Monocyte% 11.2 % (0-10); NRBC Flagged by Analyzer 0 % (0-5); Neutrophil # 2.98 X10^3/uL (2.7-7.7); Neutrophil % 58.8 % (47-70); POSITIVE MORPHOLOGY YES; Platelet Count 338 K/mm3 (150-450); RBC Distribution Width CV 21.4 % (11.6-14.6); RBC Distribution Width SD 73.5 fl (35.1-43.9); White Blood Count 5.1 K/mm3 (4.4-11.0)
[2020-05-18 16:18] LABS: Differential Indicated SCAN CRITERIA MET
[2020-05-18 17:09] LABS: Anisocytosis 2+; Hypochromasia 2+
[2020-05-18 17:10] LABS: Macrocytosis 1+; Platelet Estimate ADEQUATE (ADEQ)
== END | disposition home or self-care (01) ==
PROVIDERS: PCP Internal Medicine; Referring Provider Internal Medicine Infectious Disease; Visit Provider Internal Medicine Infectious Disease
DX: T84.52XA Infection and inflammatory reaction due to internal left hip prosthesis, initial encounter (principal)
CPT/HCPCS: 80048; 80076; 85025; 85652

== ENCOUNTER 2020-05-30 13:15 | Outpatient (RCR) | payer MEDICARE, SELFPAY ==
[2020-05-15 00:24] VITALS: BP 126/68; PULSE 7; RESP 16; TEMP 36.7
[2020-05-16 13:05] VITALS: BP 132/69; PULSE 80; RESP 16; TEMP 36.2; BMI 30.8
[2020-05-16 13:43] VITALS: BP 133/63; PULSE 79; RESP 16
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
[2020-05-30 13:03] VITALS: BP 137/58; PULSE 85; TEMP 36.1; BMI 30.8
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
== END 2020-06-13 23:59 ==
LOC: WC 13:15
PROVIDERS: PCP Internal Medicine; Visit Provider Nurse Practitioner Family
DX: L97.122 Non-pressure chronic ulcer of left thigh with fat layer exposed (principal); L97.822 Non-pressure chronic ulcer of other part of left lower leg with fat layer exposed; D64.9 Anemia, unspecified; Z96.642 Presence of left artificial hip joint; M97.02XA 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, initial encounter; Z86.718 Personal history of other venous thrombosis and embolism
CPT/HCPCS: 11043; 97605

== ENCOUNTER → 2020-05-31 | Outpatient (CLI) | payer MEDICARE, SELFPAY ==
[2020-05-30 13:03] VITALS: BMI 30.8
[2020-05-31 20:21] LABS: Absolute Lymphocyte Count 1.21 X10^3/uL (0.83-4.51); Absolute Neutrophil Count 3.3 X10^3/uL (2.0-7.7); Basophil# 0.04 X10^3/uL; Basophil% 0.7 % (0-1); Eosinophil# 0.19 X10^3/uL; Eosinophils% 3.4 % (0-5); Hematocrit 22.5 % (40-54); Lymphocyte # 1.21 X10^3/ul (4.0); Lymphocyte % 21.3 % (19-41); Mean Corp Hgb Conc 31.1 g/dL (32-36); Mean Corpuscular Hgb 30.2 pg (27.0-32.0); Mean Platelet Vol. 10.7 fl (6.2-12.0); Monocyte# 0.88 X10^3/uL; Monocyte% 15.5 % (0-10); NRBC Flagged by Analyzer 0.4 % (0-5); Neutrophil # 3.31 X10^3/uL (2.7-7.7); Neutrophil % 58.4 % (47-70); POSITIVE MORPHOLOGY YES; Platelet Count 292 K/mm3 (150-450); RBC Distribution Width CV 20.5 % (11.6-14.6); RBC Distribution Width SD 70.4 fl (35.1-43.9); Red Blood Count 2.32 M/mm3 (4.6-6.2); White Blood Count 5.7 K/mm3 (4.4-11.0)
[2020-05-31 20:22] LABS: AST(SGOT) 10 U/L (15-37); Alanine Aminotransfer ALT/SGPT 18 U/L (16-61); Albumin, Serum 3.3 g/dL (3.2-5.0); Alkaline Phosphatase 91 U/L (45-117); Anion Gap 7 (5-15); BUN 18 mg/dL (7-18); BUN/Creat Ratio 23.4 RATIO (10-20); Bilirubin, Direct 0.07 mg/dL (0.00-0.30); Calcium,Total 9.1 mg/dL (8.5-10.1); Chloride 111 mmol/L (98-107); Creatinine, Serum 0.77 mg/dL (0.70-1.30); EST Glomerular Filtration Rate 103 mL/min (>60); Est Glom Filt Rate - Afr Amer 124 mL/min (>60); Glucose 98 mg/dL (74-106); Potassium 3.7 mmol/L (3.5-5.1); Protein, Total 7.3 g/dL (6.4-8.2); Sodium Level 143 mmol/L (136-145)
[2020-05-31 20:38] LABS: Differential Indicated SCAN CRITERIA MET
[2020-05-31 21:33] LABS: Anisocytosis 1+; Differential Comment SCANNED; Hypochromasia 1+; Polychromasia RARE
[2020-05-31 21:34] LABS: Erythrocyte Sedimentation Rate 65 mm/hr (0-20); Microcytosis 1+
== END | disposition home or self-care (01) ==
LOC: LABSPEC 20:03
PROVIDERS: PCP Internal Medicine; Visit Provider Internal Medicine Infectious Disease
DX: T84.52XA Infection and inflammatory reaction due to internal left hip prosthesis, initial encounter (principal)
CPT/HCPCS: 80048; 80076; 85025; 85652

== ENCOUNTER 2020-06-08 10:12 | Outpatient (RCR) | payer MEDICARE, SELFPAY ==
[2020-05-16 13:05] VITALS: BMI 30.8
[2020-05-23 19:25] LABS: Erythrocyte Sedimentation Rate 41 mm/hr (0-20)
[2020-05-23 19:27] LABS: Absolute Lymphocyte Count 1.07 X10^3/uL (0.83-4.51); Absolute Neutrophil Count 4.1 X10^3/uL (2.0-7.7); Basophil# 0.04 X10^3/uL; Basophil% 0.7 % (0-1); Eosinophil# 0.13 X10^3/uL; Eosinophils% 2.2 % (0-5); Hematocrit 22.5 % (40-54); Hemoglobin 6.9 g/dL (13.0-16.5); Lymphocyte # 1.07 X10^3/ul (4.0); Lymphocyte % 18.1 % (19-41); Mean Corp Hgb Conc 30.7 g/dL (32-36); Mean Corpuscular Hgb 29.7 pg (27.0-32.0); Mean Platelet Vol. 10.4 fl (6.2-12.0); Monocyte# 0.59 X10^3/uL; NRBC Flagged by Analyzer 0 % (0-5); Neutrophil # 4.05 X10^3/uL (2.7-7.7); Neutrophil % 68.7 % (47-70); POSITIVE MORPHOLOGY YES; Platelet Count 324 K/mm3 (150-450); RBC Distribution Width CV 21.9 % (11.6-14.6); RBC Distribution Width SD 75.4 fl (35.1-43.9); Red Blood Count 2.32 M/mm3 (4.6-6.2); White Blood Count 5.9 K/mm3 (4.4-11.0)
[2020-05-23 19:28] LABS: AST(SGOT) 13 U/L (15-37); Alanine Aminotransfer ALT/SGPT 19 U/L (16-61); Albumin, Serum 3.4 g/dL (3.2-5.0); Alkaline Phosphatase 97 U/L (45-117); Anion Gap 12 (5-15); BUN 21 mg/dL (7-18); BUN/Creat Ratio 18.9 RATIO (10-20); Bilirubin, Direct 0.09 mg/dL (0.00-0.30); Calcium,Total 9.4 mg/dL (8.5-10.1); Chloride 106 mmol/L (98-107); Creatinine, Serum 1.11 mg/dL (0.70-1.30); EST Glomerular Filtration Rate 67 mL/min (>60); Est Glom Filt Rate - Afr Amer 81 mL/min (>60); Glucose 99 mg/dL (74-106); Potassium 4.3 mmol/L (3.5-5.1); Protein, Total 7.4 g/dL (6.4-8.2); Sodium Level 140 mmol/L (136-145)
[2020-05-23 20:14] LABS: Differential Indicated SCAN CRITERIA MET
[2020-05-23 20:17] LABS: Anisocytosis 1+; Hypochromasia 1+; Macrocytosis 1+; Ovalocyte RARE; Platelet Estimate ADEQUATE (ADEQ); Red Cell Morphology N CHROM NORMAL (NORM C&C)
[2020-06-08 11:01] LABS: Absolute Lymphocyte Count 0.95 X10^3/uL (0.83-4.51); Absolute Neutrophil Count 3.8 X10^3/uL (2.0-7.7); Basophil# 0.07 X10^3/uL; Basophil% 1.3 % (0-1); Eosinophil# 0.26 X10^3/uL; Eosinophils% 4.7 % (0-5); Hematocrit 26.6 % (40-54); Hemoglobin 8.1 g/dL (13.0-16.5); Lymphocyte # 0.95 X10^3/ul (4.0); Lymphocyte % 17.1 % (19-41); Mean Corp Hgb Conc 30.5 g/dL (32-36); Mean Corpuscular Hgb 30.8 pg (27.0-32.0); Mean Corpuscular Volume 101.1 fL (80-94); Mean Platelet Vol. 9.1 fl (6.2-12.0); NRBC Flagged by Analyzer 0 % (0-5); Neutrophil # 3.76 X10^3/uL (2.7-7.7); Neutrophil % 67.7 % (47-70); POSITIVE MORPHOLOGY YES; Platelet Count 358 K/mm3 (150-450); RBC Distribution Width CV 23.1 % (11.6-14.6); Red Blood Count 2.63 M/mm3 (4.6-6.2); White Blood Count 5.6 K/mm3 (4.4-11.0)
[2020-06-08 11:27] LABS: AST(SGOT) 7 U/L (15-37); Alanine Aminotransfer ALT/SGPT 14 U/L (16-61); Alkaline Phosphatase 98 U/L (45-117); Anion Gap 10 (5-15); BUN 13 mg/dL (7-18); BUN/Creat Ratio 16.7 RATIO (10-20); Calcium,Total 8.9 mg/dL (8.5-10.1); Chloride 110 mmol/L (98-107); Creatinine, Serum 0.78 mg/dL (0.70-1.30); EST Glomerular Filtration Rate 101 mL/min (>60); Est Glom Filt Rate - Afr Amer 122 mL/min (>60); Globulin 3.5 g/dL (2.2-4.2); Glucose 133 mg/dL (74-106); Potassium 4.2 mmol/L (3.5-5.1); Protein, Total 6.5 g/dL (6.4-8.2); Sodium Level 140 mmol/L (136-145)
[2020-06-08 11:35] LABS: Erythrocyte Sedimentation Rate 55 mm/hr (0-20)
[2020-06-08 11:36] LABS: Differential Indicated SCAN CRITERIA MET
[2020-06-08 11:51] LABS: Hypochromasia 1+; Platelet Estimate ADEQUATE (ADEQ); Poikilocytosis 2+
== END 2020-06-08 18:00 | disposition home or self-care (01) ==
LOC: HHLAB 10:12
PROVIDERS: PCP Internal Medicine; Referring Provider Internal Medicine Infectious Disease; Visit Provider Internal Medicine Infectious Disease
DX: T84.52XA Infection and inflammatory reaction due to internal left hip prosthesis, initial encounter (principal); B95.62 Methicillin resistant Staphylococcus aureus infection as the cause of diseases classified elsewhere
CPT/HCPCS: 80048; 80076; 85025; 85652

== ENCOUNTER 2020-06-13 17:50 | Outpatient (RCR) | payer MEDICARE, SELFPAY ==
[2020-06-13 18:04] LABS: Erythrocyte Sedimentation Rate 69 mm/hr (0-20)
[2020-06-13 18:07] LABS: Absolute Lymphocyte Count 1.31 X10^3/uL (0.83-4.51); Absolute Neutrophil Count 4.5 X10^3/uL (2.0-7.7); Basophil# 0.06 X10^3/uL; Basophil% 0.9 % (0-1); Eosinophils% 2.9 % (0-5); Hematocrit 26.4 % (40-54); Hemoglobin 8.1 g/dL (13.0-16.5); Lymphocyte # 1.31 X10^3/ul (4.0); Lymphocyte % 19.1 % (19-41); Mean Corp Hgb Conc 30.7 g/dL (32-36); Mean Corpuscular Hgb 30.9 pg (27.0-32.0); Mean Corpuscular Volume 100.8 fL (80-94); Mean Platelet Vol. 9.1 fl (6.2-12.0); Monocyte# 0.77 X10^3/uL; Monocyte% 11.2 % (0-10); NRBC Flagged by Analyzer 0 % (0-5); Neutrophil # 4.49 X10^3/uL (2.7-7.7); Neutrophil % 65.5 % (47-70); POSITIVE MORPHOLOGY YES; Platelet Count 351 K/mm3 (150-450); RBC Distribution Width SD 83.7 fl (35.1-43.9); Red Blood Count 2.62 M/mm3 (4.6-6.2); White Blood Count 6.9 K/mm3 (4.4-11.0)
[2020-06-13 18:12] LABS: Differential Indicated SCAN CRITERIA MET
[2020-06-13 18:36] LABS: AST(SGOT) 11 U/L (15-37); Alanine Aminotransfer ALT/SGPT 15 U/L (16-61); Albumin, Serum 3.2 g/dL (3.2-5.0); Alkaline Phosphatase 106 U/L (45-117); Anion Gap 7 (5-15); BUN 16 mg/dL (7-18); BUN/Creat Ratio 21.6 RATIO (10-20); Bilirubin, Direct 0.07 mg/dL (0.00-0.30); Calcium,Total 9.2 mg/dL (8.5-10.1); Chloride 111 mmol/L (98-107); Creatinine, Serum 0.74 mg/dL (0.70-1.30); EST Glomerular Filtration Rate 107 mL/min (>60); Est Glom Filt Rate - Afr Amer 129 mL/min (>60); Globulin 4.1 g/dL (2.2-4.2); Glucose 88 mg/dL (74-106); Potassium 4.1 mmol/L (3.5-5.1); Protein, Total 7.3 g/dL (6.4-8.2); Sodium Level 141 mmol/L (136-145)
[2020-06-13 18:39] LABS: Anisocytosis 1+; Red Cell Morphology NORM C+C NORMAL (NORM C&C)
== END 2020-06-13 23:59 ==
LOC: HHLAB 17:50
PROVIDERS: PCP Internal Medicine; Visit Provider Internal Medicine Infectious Disease
DX: T84.52XA Infection and inflammatory reaction due to internal left hip prosthesis, initial encounter (principal)
CPT/HCPCS: 80048; 80076; 85025; 85652

== ENCOUNTER 2020-06-29 10:22 | Outpatient (RCR) | payer MEDICARE, SELFPAY ==
[2020-06-20 10:56] VITALS: BMI 30.8
[2020-06-22 15:42] LABS: Absolute Lymphocyte Count 1.11 X10^3/uL (0.83-4.51); Absolute Neutrophil Count 4.2 X10^3/uL (2.0-7.7); Basophil# 0.06 X10^3/uL; Basophil% 0.9 % (0-1); Eosinophil# 0.23 X10^3/uL; Eosinophils% 3.5 % (0-5); Hematocrit 26.8 % (40-54); Lymphocyte # 1.11 X10^3/ul (4.0); Lymphocyte % 16.8 % (19-41); Mean Corp Hgb Conc 29.9 g/dL (32-36); Mean Corpuscular Hgb 31.5 pg (27.0-32.0); Mean Corpuscular Volume 105.5 fL (80-94); Mean Platelet Vol. 9.1 fl (6.2-12.0); Monocyte# 0.94 X10^3/uL; Monocyte% 14.2 % (0-10); NRBC Flagged by Analyzer 0 % (0-5); Neutrophil # 4.24 X10^3/uL (2.7-7.7); Neutrophil % 64.1 % (47-70); POSITIVE MORPHOLOGY YES; Platelet Count 366 K/mm3 (150-450); RBC Distribution Width CV 25.2 % (11.6-14.6); RBC Distribution Width SD 98.1 fl (35.1-43.9); Red Blood Count 2.54 M/mm3 (4.6-6.2); White Blood Count 6.6 K/mm3 (4.4-11.0)
[2020-06-22 17:07] LABS: Differential Indicated SCAN CRITERIA MET
[2020-06-22 17:54] LABS: Anisocytosis 2+; Hypochromasia 1+; Macrocytosis 2+; Platelet Estimate ADEQUATE (ADEQ); Polychromasia RARE
[2020-06-29 10:46] LABS: Absolute Lymphocyte Count 1.15 X10^3/uL (0.83-4.51); Absolute Neutrophil Count 3.8 X10^3/uL (2.0-7.7); Basophil# 0.06 X10^3/uL; Eosinophil# 0.23 X10^3/uL; Eosinophils% 3.8 % (0-5); Hematocrit 26.9 % (40-54); Hemoglobin 8.5 g/dL (13.0-16.5); Lymphocyte # 1.15 X10^3/ul (4.0); Lymphocyte % 19.1 % (19-41); Mean Corp Hgb Conc 31.6 g/dL (32-36); Mean Corpuscular Hgb 33.6 pg (27.0-32.0); Mean Corpuscular Volume 106.3 fL (80-94); Mean Platelet Vol. 9.2 fl (6.2-12.0); Monocyte# 0.73 X10^3/uL; Monocyte% 12.1 % (0-10); NRBC Flagged by Analyzer 0 % (0-5); Neutrophil # 3.84 X10^3/uL (2.7-7.7); Neutrophil % 63.7 % (47-70); POSITIVE MORPHOLOGY YES; Platelet Count 348 K/mm3 (150-450); RBC Distribution Width CV 25.4 % (11.6-14.6); Red Blood Count 2.53 M/mm3 (4.6-6.2)
[2020-06-29 10:52] LABS: Differential Indicated SCAN CRITERIA MET
[2020-06-29 11:02] LABS: Erythrocyte Sedimentation Rate 75 mm/hr (0-20)
[2020-06-29 11:03] LABS: AST(SGOT) 9 U/L (15-37); Alanine Aminotransfer ALT/SGPT 16 U/L (16-61); Alkaline Phosphatase 107 U/L (45-117); Anion Gap 8 (5-15); BUN 19 mg/dL (7-18); BUN/Creat Ratio 31.7 RATIO (10-20); Bilirubin, Direct 0.06 mg/dL (0.00-0.30); Calcium,Total 9.1 mg/dL (8.5-10.1); Chloride 113 mmol/L (98-107); EST Glomerular Filtration Rate 136 mL/min (>60); Est Glom Filt Rate - Afr Amer 165 mL/min (>60); Globulin 4.2 g/dL (2.2-4.2); Glucose 90 mg/dL (74-106); Potassium 3.7 mmol/L (3.5-5.1); Protein, Total 7.2 g/dL (6.4-8.2); Sodium Level 144 mmol/L (136-145)
[2020-06-29 11:18] LABS: Anisocytosis 1+; Microcytosis 1+; Platelet Estimate ADEQUATE (ADEQ)
[2020-06-29 11:19] LABS: Hypochromasia RARE
== END 2020-06-29 18:00 | disposition home or self-care (01) ==
LOC: HHLAB 10:22
PROVIDERS: PCP Internal Medicine; Referring Provider Internal Medicine Infectious Disease; Visit Provider Internal Medicine Infectious Disease
DX: T84.52XD Infection and inflammatory reaction due to internal left hip prosthesis, subsequent encounter (principal)
CPT/HCPCS: 80048; 80076; 85025; 85652

== ENCOUNTER 2020-07-04 10:45 | Outpatient (RCR) | payer MEDICARE, SELFPAY ==
[2020-06-14 00:23] VITALS: BP 137/58; PULSE 85; RESP 16; TEMP 36.1
[2020-06-20 10:56] VITALS: BP 156/79; PULSE 85; RESP 16; TEMP 36.1; BMI 30.8
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
[2020-07-04 10:57] VITALS: BP 138/69; PULSE 69; RESP 20; TEMP 35.9; BMI 30.8
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
== END 2020-07-14 23:59 ==
LOC: WC 10:45
PROVIDERS: PCP Internal Medicine; Visit Provider Nurse Practitioner Family
DX: L97.122 Non-pressure chronic ulcer of left thigh with fat layer exposed (principal); L97.926 Non-pressure chronic ulcer of unspecified part of left lower leg with bone involvement without evidence of necrosis; M97.02XA 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, initial encounter; D50.9 Iron deficiency anemia, unspecified; Z86.718 Personal history of other venous thrombosis and embolism; Z96.642 Presence of left artificial hip joint
CPT/HCPCS: 11043; 97605; 97606

== ENCOUNTER 2020-07-06 14:02 | Outpatient (RCR) | payer MEDICARE, SELFPAY ==
[2020-07-06 14:41] LABS: Absolute Neutrophil Count 4.2 X10^3/uL (2.0-7.7); Basophil# 0.07 X10^3/uL; Basophil% 1.1 % (0-1); Eosinophil# 0.19 X10^3/uL; Eosinophils% 3.1 % (0-5); Hemoglobin 9.2 g/dL (13.0-16.5); Lymphocyte % 16.2 % (19-41); Mean Corp Hgb Conc 30.7 g/dL (32-36); Mean Corpuscular Hgb 33.6 pg (27.0-32.0); Mean Corpuscular Volume 109.5 fL (80-94); Mean Platelet Vol. 10.1 fl (6.2-12.0); Monocyte# 0.66 X10^3/uL; Monocyte% 10.7 % (0-10); NRBC Flagged by Analyzer 0 % (0-5); Neutrophil # 4.23 X10^3/uL (2.7-7.7); Neutrophil % 68.4 % (47-70); POSITIVE MORPHOLOGY YES; Platelet Count 407 K/mm3 (150-450); RBC Distribution Width CV 22.8 % (11.6-14.6); RBC Distribution Width SD 90.1 fl (35.1-43.9); Red Blood Count 2.74 M/mm3 (4.6-6.2); White Blood Count 6.2 K/mm3 (4.4-11.0)
[2020-07-06 14:56] LABS: Differential Indicated SCAN CRITERIA MET
[2020-07-06 15:31] LABS: Anisocytosis 1+; Differential Comment SCANNED; Erythrocyte Sedimentation Rate 67 mm/hr (0-20)
[2020-07-13 13:54] LABS: Absolute Lymphocyte Count 1.14 X10^3/uL (0.83-4.51); Absolute Neutrophil Count 4.1 X10^3/uL (2.0-7.7); Basophil# 0.07 X10^3/uL; Basophil% 1.1 % (0-1); Eosinophil# 0.18 X10^3/uL; Eosinophils% 2.9 % (0-5); Hematocrit 31.5 % (40-54); Hemoglobin 9.7 g/dL (13.0-16.5); Lymphocyte # 1.14 X10^3/ul (4.0); Lymphocyte % 18.6 % (19-41); Mean Corp Hgb Conc 30.8 g/dL (32-36); Mean Corpuscular Hgb 33.8 pg (27.0-32.0); Mean Corpuscular Volume 109.8 fL (80-94); Mean Platelet Vol. 9.4 fl (6.2-12.0); Monocyte# 0.62 X10^3/uL; Monocyte% 10.1 % (0-10); NRBC Flagged by Analyzer 0 % (0-5); Neutrophil # 4.07 X10^3/uL (2.7-7.7); Neutrophil % 66.5 % (47-70); POSITIVE MORPHOLOGY YES; Platelet Count 399 K/mm3 (150-450); RBC Distribution Width CV 19.7 % (11.6-14.6); RBC Distribution Width SD 78.8 fl (35.1-43.9); Red Blood Count 2.87 M/mm3 (4.6-6.2); White Blood Count 6.1 K/mm3 (4.4-11.0)
[2020-07-13 13:59] LABS: Erythrocyte Sedimentation Rate 80 mm/hr (0-20)
[2020-07-13 14:00] LABS: AST(SGOT) 16 U/L (15-37); Alanine Aminotransfer ALT/SGPT 18 U/L (16-61); Albumin, Serum 3.1 g/dL (3.2-5.0); Alkaline Phosphatase 102 U/L (45-117); Anion Gap 9 (5-15); BUN 15 mg/dL (7-18); BUN/Creat Ratio 19.4 RATIO (10-20); Bilirubin, Direct 0.07 mg/dL (0.00-0.30); Chloride 108 mmol/L (98-107); Creatinine, Serum 0.77 mg/dL (0.70-1.30); Differential Indicated SCAN CRITERIA MET; EST Glomerular Filtration Rate 102 mL/min (>60); Est Glom Filt Rate - Afr Amer 123 mL/min (>60); Globulin 4.3 g/dL (2.2-4.2); Glucose 169 mg/dL (74-106); Potassium 3.4 mmol/L (3.5-5.1); Protein, Total 7.4 g/dL (6.4-8.2); Sodium Level 140 mmol/L (136-145)
[2020-07-13 14:35] LABS: Anisocytosis 1+
== END 2020-07-06 18:00 | disposition home or self-care (01) ==
LOC: HHLAB 14:02
PROVIDERS: PCP Internal Medicine; Referring Provider Internal Medicine Infectious Disease; Visit Provider Internal Medicine Infectious Disease
DX: T84.52XA Infection and inflammatory reaction due to internal left hip prosthesis, initial encounter (principal); B95.62 Methicillin resistant Staphylococcus aureus infection as the cause of diseases classified elsewhere
CPT/HCPCS: 80048; 80076; 85025; 85652

== ENCOUNTER → 2020-07-09 12:22 | Outpatient (CLI) | payer MEDICARE, SELFPAY ==
[2020-07-04 10:57] VITALS: BMI 30.8
[2020-07-11 10:06] LABS: HIV - WCH Non-Reactive (Nonreactive); Hepatitis B Surface Antibody Non-Reactive; Hepatitis C Antibody Non-Reactive (Nonreactive)
== END ==
PROVIDERS: PCP Internal Medicine; Visit Provider Internal Medicine
DX: Z77.21 Contact with and (suspected) exposure to potentially hazardous body fluids (principal)
CPT/HCPCS: 86703; 86706; 86803

== ENCOUNTER 2020-08-01 13:00 | Outpatient (RCR) | payer MEDICARE, SELFPAY ==
[2020-07-15 00:20] VITALS: BP 138/69; PULSE 69; RESP 20; TEMP 35.9
[2020-07-18 10:54] VITALS: BP 148/71; PULSE 76; TEMP 36.1; BMI 30.8
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
[2020-08-01 13:16] VITALS: BP 145/64; PULSE 74; TEMP 36.3; BMI 30.8
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
== END 2020-08-14 23:59 ==
LOC: WC 13:00
PROVIDERS: PCP Internal Medicine; Visit Provider Nurse Practitioner Family
DX: L97 Non-pressure chronic ulcer of lower limb, not elsewhere classified (principal); M97.02XS Periprosthetic fracture around internal prosthetic left hip joint, sequela; V89.2XXS Person injured in unspecified motor-vehicle accident, traffic, sequela; D50.9 Iron deficiency anemia, unspecified; Z79.899 Other long term (current) drug therapy; Z86.718 Personal history of other venous thrombosis and embolism; Z96.642 Presence of left artificial hip joint
CPT/HCPCS: 11042; 11043; 97605

== ENCOUNTER 2020-08-10 14:32 | Outpatient (RCR) | payer MEDICARE, SELFPAY ==
[2020-07-18 10:54] VITALS: BMI 30.8
[2020-07-20 14:06] LABS: Absolute Lymphocyte Count 1.28 X10^3/uL (0.83-4.51); Absolute Neutrophil Count 4.1 X10^3/uL (2.0-7.7); Basophil# 0.06 X10^3/uL; Basophil% 0.9 % (0-1); Eosinophil# 0.18 X10^3/uL; Eosinophils% 2.7 % (0-5); Hematocrit 31.3 % (40-54); Lymphocyte # 1.28 X10^3/ul (4.0); Lymphocyte % 19.5 % (19-41); Mean Corp Hgb Conc 31.9 g/dL (32-36); Mean Corpuscular Hgb 34.1 pg (27.0-32.0); Mean Corpuscular Volume 106.8 fL (80-94); Mean Platelet Vol. 10.1 fl (6.2-12.0); Monocyte% 13.7 % (0-10); NRBC Flagged by Analyzer 0 % (0-5); Neutrophil # 4.13 X10^3/uL (2.7-7.7); Neutrophil % 62.7 % (47-70); POSITIVE MORPHOLOGY YES; Platelet Count 399 K/mm3 (150-450); RBC Distribution Width CV 16.9 % (11.6-14.6); RBC Distribution Width SD 65.6 fl (35.1-43.9); Red Blood Count 2.93 M/mm3 (4.6-6.2); White Blood Count 6.6 K/mm3 (4.4-11.0)
[2020-07-20 14:10] LABS: Differential Indicated SCAN CRITERIA MET
[2020-07-20 14:36] LABS: Platelet Estimate ADEQUATE (ADEQ); Red Cell Morphology NORM C+C NORMAL (NORM C&C)
[2020-07-27 14:39] LABS: Absolute Lymphocyte Count 1.25 X10^3/uL (0.83-4.51); Absolute Neutrophil Count 4.2 X10^3/uL (2.0-7.7); Basophil# 0.05 X10^3/uL; Basophil% 0.8 % (0-1); Eosinophil# 0.22 X10^3/uL; Eosinophils% 3.5 % (0-5); Hematocrit 33.7 % (40-54); Hemoglobin 10.3 g/dL (13.0-16.5); Lymphocyte # 1.25 X10^3/ul (4.0); Lymphocyte % 19.7 % (19-41); Mean Corp Hgb Conc 30.6 g/dL (32-36); Mean Corpuscular Hgb 32.8 pg (27.0-32.0); Mean Corpuscular Volume 107.3 fL (80-94); Mean Platelet Vol. 9.9 fl (6.2-12.0); Monocyte# 0.56 X10^3/uL; Monocyte% 8.8 % (0-10); NRBC Flagged by Analyzer 0 % (0-5); Neutrophil # 4.16 X10^3/uL (2.7-7.7); Neutrophil % 65.8 % (47-70); Platelet Count 375 K/mm3 (150-450); RBC Distribution Width CV 15.9 % (11.6-14.6); RBC Distribution Width SD 61.6 fl (35.1-43.9); Red Blood Count 3.14 M/mm3 (4.6-6.2); White Blood Count 6.3 K/mm3 (4.4-11.0)
[2020-07-27 14:44] LABS: Erythrocyte Sedimentation Rate 78 mm/hr (0-20)
[2020-07-27 15:06] LABS: AST(SGOT) 11 U/L (15-37); Alanine Aminotransfer ALT/SGPT 18 U/L (16-61); Albumin, Serum 3.2 g/dL (3.2-5.0); Alkaline Phosphatase 104 U/L (45-117); Anion Gap 7 (5-15); BUN 16 mg/dL (7-18); BUN/Creat Ratio 18.2 RATIO (10-20); Bilirubin, Direct 0.08 mg/dL (0.00-0.30); Calcium,Total 9.6 mg/dL (8.5-10.1); Chloride 106 mmol/L (98-107); Creatinine, Serum 0.88 mg/dL (0.70-1.30); EST Glomerular Filtration Rate 88 mL/min (>60); Est Glom Filt Rate - Afr Amer 106 mL/min (>60); Globulin 4.4 g/dL (2.2-4.2); Glucose 148 mg/dL (74-106); Protein, Total 7.6 g/dL (6.4-8.2); Sodium Level 138 mmol/L (136-145)
[2020-08-03 15:41] LABS: Absolute Lymphocyte Count 1.48 X10^3/uL (0.83-4.51); Absolute Neutrophil Count 3.7 X10^3/uL (2.0-7.7); Basophil# 0.06 X10^3/uL; Basophil% 0.9 % (0-1); Eosinophil# 0.23 X10^3/uL; Eosinophils% 3.6 % (0-5); Hematocrit 32.7 % (40-54); Hemoglobin 10.7 g/dL (13.0-16.5); Lymphocyte # 1.48 X10^3/ul (4.0); Lymphocyte % 23.3 % (19-41); Mean Corp Hgb Conc 32.7 g/dL (32-36); Mean Corpuscular Hgb 34.2 pg (27.0-32.0); Mean Corpuscular Volume 104.5 fL (80-94); Mean Platelet Vol. 9.7 fl (6.2-12.0); Monocyte# 0.81 X10^3/uL; Monocyte% 12.8 % (0-10); NRBC Flagged by Analyzer 0 % (0-5); Neutrophil # 3.73 X10^3/uL (2.7-7.7); Neutrophil % 58.9 % (47-70); Platelet Count 343 K/mm3 (150-450); RBC Distribution Width CV 14.5 % (11.6-14.6); RBC Distribution Width SD 55.2 fl (35.1-43.9); Red Blood Count 3.13 M/mm3 (4.6-6.2); White Blood Count 6.3 K/mm3 (4.4-11.0)
[2020-08-10 15:02] LABS: Erythrocyte Sedimentation Rate 82 mm/hr (0-20)
[2020-08-10 15:04] LABS: Absolute Lymphocyte Count 1.32 X10^3/uL (0.83-4.51); Absolute Neutrophil Count 5.4 X10^3/uL (2.0-7.7); Basophil# 0.08 X10^3/uL; Eosinophil# 0.25 X10^3/uL; Eosinophils% 3.1 % (0-5); Hemoglobin 11.5 g/dL (13.0-16.5); Lymphocyte # 1.32 X10^3/ul (4.0); Lymphocyte % 16.6 % (19-41); Mean Corp Hgb Conc 32.9 g/dL (32-36); Mean Corpuscular Hgb 33.5 pg (27.0-32.0); Mean Platelet Vol. 10.2 fl (6.2-12.0); Monocyte# 0.82 X10^3/uL; Monocyte% 10.3 % (0-10); NRBC Flagged by Analyzer 0 % (0-5); Neutrophil # 5.43 X10^3/uL (2.7-7.7); Neutrophil % 68.5 % (47-70); Platelet Count 349 K/mm3 (150-450); RBC Distribution Width CV 13.9 % (11.6-14.6); Red Blood Count 3.43 M/mm3 (4.6-6.2); White Blood Count 7.9 K/mm3 (4.4-11.0)
[2020-08-10 15:14] LABS: AST(SGOT) 16 U/L (15-37); Alanine Aminotransfer ALT/SGPT 21 U/L (16-61); Albumin, Serum 3.3 g/dL (3.2-5.0); Alkaline Phosphatase 119 U/L (45-117); Anion Gap 8 (5-15); BUN 16 mg/dL (7-18); BUN/Creat Ratio 20.4 RATIO (10-20); Bilirubin, Direct < 0.05 mg/dL (0.00-0.30); Calcium,Total 9.4 mg/dL (8.5-10.1); Chloride 105 mmol/L (98-107); Creatinine, Serum 0.78 mg/dL (0.70-1.30); EST Glomerular Filtration Rate 100 mL/min (>60); Est Glom Filt Rate - Afr Amer 121 mL/min (>60); Globulin 4.7 g/dL (2.2-4.2); Glucose 102 mg/dL (74-106); Potassium 4.1 mmol/L (3.5-5.1); Sodium Level 138 mmol/L (136-145)
== END 2020-08-10 18:00 | disposition home or self-care (01) ==
LOC: HHLAB 14:32
PROVIDERS: PCP Internal Medicine; Referring Provider Internal Medicine Infectious Disease; Visit Provider Internal Medicine Infectious Disease
DX: T84.52XA Infection and inflammatory reaction due to internal left hip prosthesis, initial encounter (principal); B95.62 Methicillin resistant Staphylococcus aureus infection as the cause of diseases classified elsewhere
CPT/HCPCS: 80048; 80076; 85025; 85652; 86140

== ENCOUNTER 2020-09-05 13:00 | Outpatient (RCR) | payer MEDICARE, SELFPAY ==
[2020-08-15 00:21] VITALS: BP 145/64; PULSE 74; RESP 20; TEMP 36.3
[2020-08-22 13:10] VITALS: BP 120/62; TEMP 36.2; BMI 30.8
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
[2020-09-05 13:12] VITALS: BP 140/105; PULSE 72; RESP 18; TEMP 36.4; BMI 30.8
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
== END 2020-09-11 23:59 ==
LOC: WC 13:00
PROVIDERS: PCP Internal Medicine; Visit Provider Nurse Practitioner Family
DX: L97.122 Non-pressure chronic ulcer of left thigh with fat layer exposed (principal); M97.02XS Periprosthetic fracture around internal prosthetic left hip joint, sequela; V89.2XXS Person injured in unspecified motor-vehicle accident, traffic, sequela; D64.9 Anemia, unspecified; Z86.718 Personal history of other venous thrombosis and embolism; Z86.19 Personal history of other infectious and parasitic diseases; Z96.642 Presence of left artificial hip joint
CPT/HCPCS: 11042

== ENCOUNTER 2020-09-07 15:03 | Outpatient (RCR) | payer MEDICARE, SELFPAY ==
[2020-08-17 12:37] LABS: Erythrocyte Sedimentation Rate 62 mm/hr (0-20)
[2020-08-17 13:36] LABS: Absolute Lymphocyte Count 1.23 X10^3/uL (0.83-4.51); Absolute Neutrophil Count 4.3 X10^3/uL (2.0-7.7); Basophil# 0.07 X10^3/uL; Basophil% 1.1 % (0-1); Eosinophil# 0.26 X10^3/uL; Hematocrit 35.9 % (40-54); Hemoglobin 11.4 g/dL (13.0-16.5); Lymphocyte # 1.23 X10^3/ul (4.0); Lymphocyte % 18.7 % (19-41); Mean Corp Hgb Conc 31.8 g/dL (32-36); Mean Corpuscular Hgb 32.9 pg (27.0-32.0); Mean Corpuscular Volume 103.8 fL (80-94); Mean Platelet Vol. 10.1 fl (6.2-12.0); Monocyte# 0.64 X10^3/uL; Monocyte% 9.7 % (0-10); NRBC Flagged by Analyzer 0 % (0-5); Neutrophil # 4.34 X10^3/uL (2.7-7.7); Platelet Count 324 K/mm3 (150-450); RBC Distribution Width CV 13.6 % (11.6-14.6); RBC Distribution Width SD 51.8 fl (35.1-43.9); Red Blood Count 3.46 M/mm3 (4.6-6.2); White Blood Count 6.6 K/mm3 (4.4-11.0)
[2020-08-24 11:34] LABS: Erythrocyte Sedimentation Rate 51 mm/hr (0-20)
[2020-08-24 11:37] LABS: Absolute Neutrophil Count 4.2 X10^3/uL (2.0-7.7); Basophil# 0.06 X10^3/uL; Basophil% 0.9 % (0-1); Eosinophil# 0.31 X10^3/uL; Eosinophils% 4.8 % (0-5); Hematocrit 35.4 % (40-54); Hemoglobin 11.6 g/dL (13.0-16.5); Lymphocyte % 20.1 % (19-41); Mean Corp Hgb Conc 32.8 g/dL (32-36); Mean Corpuscular Hgb 33.5 pg (27.0-32.0); Mean Corpuscular Volume 102.3 fL (80-94); Mean Platelet Vol. 9.9 fl (6.2-12.0); Monocyte# 0.62 X10^3/uL; Monocyte% 9.6 % (0-10); NRBC Flagged by Analyzer 0 % (0-5); Neutrophil # 4.16 X10^3/uL (2.7-7.7); Neutrophil % 64.1 % (47-70); Platelet Count 291 K/mm3 (150-450); RBC Distribution Width CV 13.2 % (11.6-14.6); RBC Distribution Width SD 49.4 fl (35.1-43.9); Red Blood Count 3.46 M/mm3 (4.6-6.2); White Blood Count 6.5 K/mm3 (4.4-11.0)
[2020-08-24 11:44] LABS: AST(SGOT) 16 U/L (15-37); Alanine Aminotransfer ALT/SGPT 21 U/L (16-61); Albumin, Serum 3.1 g/dL (3.2-5.0); Alkaline Phosphatase 113 U/L (45-117); Anion Gap 7 (5-15); BUN 18 mg/dL (7-18); BUN/Creat Ratio 22.1 RATIO (10-20); Bilirubin, Direct < 0.05 mg/dL (0.00-0.30); Calcium,Total 9.3 mg/dL (8.5-10.1); Chloride 106 mmol/L (98-107); Creatinine, Serum 0.82 mg/dL (0.70-1.30); EST Glomerular Filtration Rate 96 mL/min (>60); Est Glom Filt Rate - Afr Amer 116 mL/min (>60); Globulin 4.5 g/dL (2.2-4.2); Glucose 135 mg/dL (74-106); Potassium 3.8 mmol/L (3.5-5.1); Protein, Total 7.6 g/dL (6.4-8.2); Sodium Level 140 mmol/L (136-145)
[2020-08-31 13:13] LABS: Erythrocyte Sedimentation Rate 59 mm/hr (0-20)
[2020-08-31 13:15] LABS: Absolute Lymphocyte Count 1.15 X10^3/uL (0.83-4.51); Absolute Neutrophil Count 4.5 X10^3/uL (2.0-7.7); Basophil# 0.04 X10^3/uL; Basophil% 0.6 % (0-1); Eosinophil# 0.29 X10^3/uL; Eosinophils% 4.4 % (0-5); Hematocrit 36.5 % (40-54); Hemoglobin 11.5 g/dL (13.0-16.5); Lymphocyte # 1.15 X10^3/ul (4.0); Lymphocyte % 17.4 % (19-41); Mean Corp Hgb Conc 31.5 g/dL (32-36); Mean Corpuscular Hgb 32.3 pg (27.0-32.0); Mean Corpuscular Volume 102.5 fL (80-94); Mean Platelet Vol. 10.1 fl (6.2-12.0); Monocyte# 0.63 X10^3/uL; Monocyte% 9.5 % (0-10); NRBC Flagged by Analyzer 0 % (0-5); Neutrophil # 4.46 X10^3/uL (2.7-7.7); Neutrophil % 67.5 % (47-70); Platelet Count 293 K/mm3 (150-450); RBC Distribution Width CV 13.2 % (11.6-14.6); RBC Distribution Width SD 50.4 fl (35.1-43.9); Red Blood Count 3.56 M/mm3 (4.6-6.2); White Blood Count 6.6 K/mm3 (4.4-11.0)
[2020-08-31 13:40] LABS: AST(SGOT) 15 U/L (15-37); Alanine Aminotransfer ALT/SGPT 20 U/L (16-61); Albumin, Serum 3.2 g/dL (3.2-5.0); Alkaline Phosphatase 107 U/L (45-117); Anion Gap 8 (5-15); BUN 21 mg/dL (7-18); BUN/Creat Ratio 25.3 RATIO (10-20); Bilirubin, Direct < 0.05 mg/dL (0.00-0.30); Calcium,Total 9.3 mg/dL (8.5-10.1); Chloride 106 mmol/L (98-107); Creatinine, Serum 0.83 mg/dL (0.70-1.30); EST Glomerular Filtration Rate 94 mL/min (>60); Est Glom Filt Rate - Afr Amer 113 mL/min (>60); Globulin 4.5 g/dL (2.2-4.2); Glucose 139 mg/dL (74-106); Potassium 3.8 mmol/L (3.5-5.1); Protein, Total 7.7 g/dL (6.4-8.2); Sodium Level 139 mmol/L (136-145)
[2020-09-07 17:44] LABS: Absolute Lymphocyte Count 1.38 X10^3/uL (0.83-4.51); Absolute Neutrophil Count 4.9 X10^3/uL (2.0-7.7); Basophil# 0.06 X10^3/uL; Basophil% 0.8 % (0-1); Eosinophil# 0.25 X10^3/uL; Eosinophils% 3.3 % (0-5); Hematocrit 35.5 % (40-54); Hemoglobin 11.5 g/dL (13.0-16.5); Lymphocyte # 1.38 X10^3/ul (4.0); Lymphocyte % 18.4 % (19-41); Mean Corp Hgb Conc 32.4 g/dL (32-36); Mean Corpuscular Hgb 32.6 pg (27.0-32.0); Mean Corpuscular Volume 100.6 fL (80-94); Mean Platelet Vol. 9.6 fl (6.2-12.0); NRBC Flagged by Analyzer 0 % (0-5); Neutrophil # 4.87 X10^3/uL (2.7-7.7); Neutrophil % 65.1 % (47-70); Platelet Count 328 K/mm3 (150-450); RBC Distribution Width SD 48.3 fl (35.1-43.9); Red Blood Count 3.53 M/mm3 (4.6-6.2); White Blood Count 7.5 K/mm3 (4.4-11.0)
[2020-09-07 18:05] LABS: Erythrocyte Sedimentation Rate 63 mm/hr (0-20)
[2020-09-07 18:26] LABS: Anion Gap 7 (5-15); BUN 16 mg/dL (7-18); BUN/Creat Ratio 21.2 RATIO (10-20); Calcium,Total 9.4 mg/dL (8.5-10.1); Chloride 106 mmol/L (98-107); Creatinine, Serum 0.75 mg/dL (0.70-1.30); EST Glomerular Filtration Rate 105 mL/min (>60); Est Glom Filt Rate - Afr Amer 127 mL/min (>60); Glucose 94 mg/dL (74-106); Potassium 3.9 mmol/L (3.5-5.1); Sodium Level 141 mmol/L (136-145)
== END 2020-09-07 18:00 | disposition home or self-care (01) ==
LOC: HHLAB 15:03
PROVIDERS: PCP Internal Medicine; Referring Provider Internal Medicine Infectious Disease; Visit Provider Internal Medicine Infectious Disease
DX: T84.52XA Infection and inflammatory reaction due to internal left hip prosthesis, initial encounter (principal); B95.62 Methicillin resistant Staphylococcus aureus infection as the cause of diseases classified elsewhere
CPT/HCPCS: 80048; 80076; 85025; 85652

== ENCOUNTER 2020-10-03 13:00 | Outpatient (RCR) | payer MEDICARE, SELFPAY ==
[2020-09-12 00:20] VITALS: BP 140/105; PULSE 72; RESP 18; TEMP 36.4
[2020-09-19 12:57] VITALS: BP 174/88; PULSE 71; RESP 16; TEMP 36.6; BMI 30.8
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
[2020-10-03 13:10] VITALS: BP 111/60; PULSE 74; RESP 18; TEMP 37.1; BMI 30.8
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
== END 2020-10-12 23:59 ==
LOC: WC 13:00
PROVIDERS: PCP Internal Medicine; Visit Provider Nurse Practitioner Family
DX: L97.121 Non-pressure chronic ulcer of left thigh limited to breakdown of skin (principal); M97.02XS Periprosthetic fracture around internal prosthetic left hip joint, sequela; V89.2XXS Person injured in unspecified motor-vehicle accident, traffic, sequela; D64.9 Anemia, unspecified; Z96.642 Presence of left artificial hip joint; Z86.19 Personal history of other infectious and parasitic diseases; Z86.718 Personal history of other venous thrombosis and embolism
CPT/HCPCS: 11042

== ENCOUNTER 2020-10-12 12:33 | Outpatient (RCR) | payer MEDICARE, SELFPAY ==
[2020-09-14 11:12] LABS: Absolute Lymphocyte Count 1.45 X10^3/uL (0.83-4.51); Absolute Neutrophil Count 3.6 X10^3/uL (2.0-7.7); Basophil# 0.06 X10^3/uL; Eosinophil# 0.35 X10^3/uL; Eosinophils% 5.7 % (0-5); Hematocrit 35.2 % (40-54); Hemoglobin 11.4 g/dL (13.0-16.5); Lymphocyte # 1.45 X10^3/ul (4.0); Lymphocyte % 23.5 % (19-41); Mean Corp Hgb Conc 32.4 g/dL (32-36); Mean Corpuscular Volume 98.9 fL (80-94); Mean Platelet Vol. 9.8 fl (6.2-12.0); Monocyte# 0.66 X10^3/uL; Monocyte% 10.7 % (0-10); NRBC Flagged by Analyzer 0 % (0-5); Neutrophil # 3.62 X10^3/uL (2.7-7.7); Neutrophil % 58.5 % (47-70); Platelet Count 319 K/mm3 (150-450); RBC Distribution Width CV 12.9 % (11.6-14.6); RBC Distribution Width SD 46.1 fl (35.1-43.9); Red Blood Count 3.56 M/mm3 (4.6-6.2); White Blood Count 6.2 K/mm3 (4.4-11.0)
[2020-09-21 12:53] LABS: Absolute Lymphocyte Count 1.19 X10^3/uL (0.83-4.51); Absolute Neutrophil Count 3.9 X10^3/uL (2.0-7.7); Basophil# 0.06 X10^3/uL; Eosinophil# 0.27 X10^3/uL; Eosinophils% 4.5 % (0-5); Hematocrit 35.3 % (40-54); Hemoglobin 11.4 g/dL (13.0-16.5); Lymphocyte # 1.19 X10^3/ul (4.0); Lymphocyte % 19.6 % (19-41); Mean Corp Hgb Conc 32.3 g/dL (32-36); Mean Corpuscular Hgb 32.7 pg (27.0-32.0); Mean Corpuscular Volume 101.1 fL (80-94); Mean Platelet Vol. 9.8 fl (6.2-12.0); Monocyte# 0.66 X10^3/uL; Monocyte% 10.9 % (0-10); NRBC Flagged by Analyzer 0 % (0-5); Neutrophil # 3.85 X10^3/uL (2.7-7.7); Neutrophil % 63.5 % (47-70); Platelet Count 288 K/mm3 (150-450); RBC Distribution Width CV 13.1 % (11.6-14.6); RBC Distribution Width SD 48.5 fl (35.1-43.9); Red Blood Count 3.49 M/mm3 (4.6-6.2); White Blood Count 6.1 K/mm3 (4.4-11.0)
[2020-09-21 12:56] LABS: Erythrocyte Sedimentation Rate 61 mm/hr (0-20)
[2020-09-21 12:57] LABS: AST(SGOT) 14 U/L (15-37); Alanine Aminotransfer ALT/SGPT 21 U/L (16-61); Albumin, Serum 3.2 g/dL (3.2-5.0); Alkaline Phosphatase 97 U/L (45-117); Anion Gap 7 (5-15); BUN 15 mg/dL (7-18); BUN/Creat Ratio 17.5 RATIO (10-20); Bilirubin, Direct 0.05 mg/dL (0.00-0.30); Calcium,Total 9.2 mg/dL (8.5-10.1); Chloride 108 mmol/L (98-107); Creatinine, Serum 0.86 mg/dL (0.70-1.30); EST Glomerular Filtration Rate 90 mL/min (>60); Est Glom Filt Rate - Afr Amer 109 mL/min (>60); Globulin 4.4 g/dL (2.2-4.2); Glucose 127 mg/dL (74-106); Potassium 3.6 mmol/L (3.5-5.1); Protein, Total 7.6 g/dL (6.4-8.2); Sodium Level 140 mmol/L (136-145)
[2020-10-05 16:16] LABS: Hematocrit 32.7 % (40-54); Hemoglobin 10.7 g/dL (13.0-16.5); Mean Corp Hgb Conc 32.7 g/dL (32-36); Mean Corpuscular Hgb 32.1 pg (27.0-32.0); Mean Corpuscular Volume 98.2 fL (80-94); Mean Platelet Vol. 9.9 fl (6.2-12.0); Platelet Count 298 K/mm3 (150-450); RBC Distribution Width CV 13.5 % (11.6-14.6); RBC Distribution Width SD 47.3 fl (35.1-43.9); Red Blood Count 3.33 M/mm3 (4.6-6.2); White Blood Count 6.3 K/mm3 (4.4-11.0)
[2020-10-05 16:18] LABS: Anion Gap 8 (5-15); BUN 17 mg/dL (7-18); BUN/Creat Ratio 19.5 RATIO (10-20); Calcium,Total 9.4 mg/dL (8.5-10.1); Chloride 108 mmol/L (98-107); Creatinine, Serum 0.87 mg/dL (0.70-1.30); EST Glomerular Filtration Rate 89 mL/min (>60); Est Glom Filt Rate - Afr Amer 107 mL/min (>60); Glucose 115 mg/dL (74-106); Potassium 3.7 mmol/L (3.5-5.1); Sodium Level 141 mmol/L (136-145)
[2020-10-05 16:51] LABS: Erythrocyte Sedimentation Rate 74 mm/hr (0-20)
[2020-10-12 15:39] LABS: Absolute Lymphocyte Count 1.16 X10^3/uL (0.83-4.51); Absolute Neutrophil Count 3.9 X10^3/uL (2.0-7.7); Basophil# 0.06 X10^3/uL; Eosinophil# 0.19 X10^3/uL; Eosinophils% 3.2 % (0-5); Hematocrit 33.3 % (40-54); Hemoglobin 10.5 g/dL (13.0-16.5); Lymphocyte # 1.16 X10^3/ul (4.0); Lymphocyte % 19.4 % (19-41); Mean Corp Hgb Conc 31.5 g/dL (32-36); Mean Corpuscular Hgb 31.3 pg (27.0-32.0); Mean Corpuscular Volume 99.1 fL (80-94); Mean Platelet Vol. 9.9 fl (6.2-12.0); Monocyte# 0.66 X10^3/uL; NRBC Flagged by Analyzer 0 % (0-5); Neutrophil # 3.86 X10^3/uL (2.7-7.7); Neutrophil % 64.6 % (47-70); Platelet Count 309 K/mm3 (150-450); RBC Distribution Width CV 13.2 % (11.6-14.6); RBC Distribution Width SD 47.8 fl (35.1-43.9); Red Blood Count 3.36 M/mm3 (4.6-6.2)
== END 2020-10-12 18:00 | disposition home or self-care (01) ==
LOC: HHLAB 12:33
PROVIDERS: PCP Internal Medicine; Referring Provider Internal Medicine Infectious Disease; Visit Provider Internal Medicine Infectious Disease
DX: T84.52XA Infection and inflammatory reaction due to internal left hip prosthesis, initial encounter (principal); B95.62 Methicillin resistant Staphylococcus aureus infection as the cause of diseases classified elsewhere
CPT/HCPCS: 80048; 80076; 85025; 85027; 85652

== ENCOUNTER 2020-10-31 13:00 | Outpatient (RCR) | payer MEDICARE, SELFPAY ==
[2020-10-13 00:31] VITALS: BP 111/60; PULSE 74; RESP 18; TEMP 37.1
[2020-10-17 13:05] VITALS: BP 156/84; PULSE 73; RESP 16; TEMP 37; BMI 30.8
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
[2020-10-31 13:02] VITALS: BP 138/73; PULSE 74; RESP 16; TEMP 37.3; BMI 30.8
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
== END 2020-11-11 23:59 ==
LOC: WC 13:00
PROVIDERS: PCP Internal Medicine; Visit Provider Nurse Practitioner Family
DX: L97.121 Non-pressure chronic ulcer of left thigh limited to breakdown of skin (principal); S72.002S Fracture of unspecified part of neck of left femur, sequela; M97.02XS Periprosthetic fracture around internal prosthetic left hip joint, sequela; V89.2XXS Person injured in unspecified motor-vehicle accident, traffic, sequela; R53.81 Other malaise; Z79.899 Other long term (current) drug therapy; Z96.642 Presence of left artificial hip joint
CPT/HCPCS: 11042

== ENCOUNTER 2020-11-14 13:15 | Outpatient (RCR) | payer MEDICARE, SELFPAY ==
[2020-11-12 00:31] VITALS: BP 138/73; PULSE 74; RESP 16; TEMP 37.3
[2020-11-14 13:08] VITALS: BP 148/78; PULSE 78; RESP 16; TEMP 36.4; BMI 30.8
--- NOTE | 2020-11-14 15:37 | PCM.WC.PN ---
History of Present Illness Date of Service: 11/14/20 Chief Complaint: Nonhealing ulcer left lateral thigh, s/p revision hip arthroplasty. History of Wound: Surgery 12/29/19 - Surgical preparation left lateral thigh in previous scar from revision hip arthroplasty with excisional debridement nonhealing infected draining ulcer and partial ostectomy femur for osteomyelitis. He is healed today! Operative culture - Klebsiella pneumoniae. He was treated with Cefadroxil and has finished them. He is also on Diflucan and Zyvox for halfway suppression. Prealbumin from 12/30/19 was 27.3. Encourage nutritional supplementation with protein to help the healing process. He has a history of anemia. He had recent upper and lower endoscopy that were unremarkable. His Hgb on 08/10/20 was 11.5. His PCP is watching him closely, orders his transfusions and may have him evaluated by Hematology. Today he denies fever. His appetite is ok. Progress of Wound: Left lateral thigh ulcer is healed. 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 Instructed him to keep the area covered with a dry gauze for the next 1-2 weeks until the healing skin is not so fragile.? Instructed him to massage the scarring daily with lotion to help soften the scarring and hopefully help decrease the divot of the scarring.? His excoriated periwound is healed after using the Lotrisone cream twice daily x 1 week. ? His? Hgb from 09/21/2020 was 11.4.? He has a history of anemia which is being managed by his PCP.? Recent upper and lower endoscopy were unremarkable.? His PCP is watching him closely and evaluating him for his chronic anemia with possible Hematology referral.? Operative culture showed Klebsiella pneumoniae and was placed on Cefadroxil and has finished them.? 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 Follow up as needed.? Charges/Coding Visit Charges Office Visits / Consults: 56327 OV L3 Est Physical Exam Const alert General Appearance: cooperative HEENT normocephalic Head and Scalp: atraumatic Eyes PERRL Resp normal respiratory effort Cardio regular rate GI non-tender Palpation: soft Extremity normal to inspection General Extremity: Negative for edema Skin Wound Narrative: Left lateral leg ulcer is healed today. Neuro CN's II-XII intact bilaterally Psych Appearance: grossly normal Debridement Note Debridement Note No debridement was completed: No debridement was completed today
== END 2020-11-14 14:01 | disposition home or self-care (01) ==
LOC: WC 13:15
PROVIDERS: PCP Internal Medicine; Visit Provider Nurse Practitioner Family
DX: Z09 Encounter for follow-up examination after completed treatment for conditions other than malignant neoplasm (principal); Z79.899 Other long term (current) drug therapy; Z86.2 Personal history of diseases of the blood and blood-forming organs and certain disorders involving the immune mechanism; Z86.718 Personal history of other venous thrombosis and embolism; Z96.642 Presence of left artificial hip joint
CPT/HCPCS: 99213; G0463

== ENCOUNTER → 2022-07-26 | Outpatient (CLI) | payer MEDICARE, SELFPAY | END | disposition home or self-care (01) | LOC: LAB 11:36 | PROVIDERS: PCP Internal Medicine; Referring Provider Registered Nurse; Visit Provider Registered Nurse | DX: R97.20 Elevated prostate specific antigen [PSA] (principal) | CPT/HCPCS: 36415; 84153 ==

== ENCOUNTER → 2022-08-14 | Outpatient (CLI) | payer MEDICARE, SELFPAY ==
--- NOTE | 2022-08-14 08:00 | PROSBIL_PTH ---
PATIENT: IAN BAZAN LOC: [facility]#:[id number] AGE/SX: 87/M ROOM: RE08/14/[address]: Dr. Jefferson Taveras MD : [id number] BED: DIS: 08/14/2022 SPEC #: [id number] RECD: 08/14/22 15:00 STATUS: JESUS MCCLENDON #: [id number] HALIMA: 08/14/22 08:[address]: Jefferson Taveras DEPT: SURGICAL PATHOLOGY RECD BY: Tod Hackett ENTERED: 08/15/22 11:02 SP TYPE: PROST BX CINTHIA DR: Dr. Christos Golden MD Tissues: A - PROSTATE BIOPSY B - PROSTATE BIOPSY C - PROSTATE BIOPSY Procedures: PROSTATE BX HEADER OPERATION: Prostate biopsy PRE-OP DIAGNOSIS: Elevated PSA TISSUE SUBMITTED: A - Random prostate biopsy, B - Random prostate biopsy, C - Random prostate biopsy MICROSCOPIC DIAGNOSIS A. Prostate, random biopsy: Adenocarcinoma. Flynn grade: 9 (5+4) Cores involved: 1 out of 1 core Tissue involved: 95% Greatest tumor length: 1.4 millimeters B. Prostate, random biopsy: Adenocarcinoma. Bon Aqua grade: 9 (5+4) Cores involved: 1 out of 1 core Tissue involved: 95% Greatest tumor length: 1.5 millimeters Perineural invasion: Present, multifocal C. Prostate, random biopsy: Adenocarcinoma. Bon Aqua grade: 9 (5+4) Cores involved: 1 out of 1 core Tissue involved: 90% Greatest tumor length: 1.6 millimeters Perineural invasion: Present, focal AM:sonu 08/16/2022 COMMENT Case has been reviewed in consultation with Dr. Ulloa who concurs with the above diagnosis. IDC:SJ MICROSCOPIC DESCRIPTION Slides are reviewed. GROSS DESCRIPTION A - Received is one container designated prostate biopsy, not further designated. The specimen consists of one elongated fragment of light montoya-white soft tissue measuring 1.6 cm in length and 0.1 cm in diameter. The specimen is totally submitted in one cassette. B - Received is one container designated prostate biopsy, not further designated. The specimen consists of one elongated fragment of light montoya-white soft tissue measuring 1.6 cm in length and 0.1 cm in diameter. The specimen is totally submitted in one cassette. C - Received is one container designated prostate biopsy, not further designated. The specimen consists of one elongated fragment of light montoya-white soft tissue measuring 1.9 cm in length and 0.1 cm in diameter. The specimen is totally submitted in one cassette. / CHRISTIANO:sonu 08/15/2022 TC:0 CPT: G0146
== END | disposition home or self-care (01) ==
LOC: LABSPEC 16:52
PROVIDERS: PCP Internal Medicine; Visit Provider Urology
DX: R97.20 Elevated prostate specific antigen [PSA] (principal)
CPT/HCPCS: 88305; G0416

== ENCOUNTER → 2022-08-22 | Outpatient (CLI) | payer MEDICARE, SELFPAY ==
--- NOTE | 2022-08-22 08:07 | NM_ITS ---
CLINICAL: 87-year-old male with history of carcinoma of the prostate. WHOLE BODY 99m Tc MDP RADIONUCLIDE BONE SCINTIGRAPHY COMPARISON: None available FINDINGS: Following the intravenous administration of 26.1 mCi of 99m Tc MDP, whole body bone images reveal: 1. Increased radiopharmaceutical concentration is defined in the acromioclavicular, sternoclavicular, glenohumeral compartments of both shoulders, the right-left elbows, the visualized wrists bilaterally, the right hand, the lower cervical spine posteriorly on the left, the eighth through 10th thoracic vertebra posteriorly on the right. 2. Bilateral knee arthroplasties are defined with mild increased uptake noted in the medial femoral component and the proximal lateral femoral component of the right knee prosthesis, the distal lateral tibial component of the left knee arthroplasty. Facilitated uptake is noted in the lesser trochanteric and proximal-distal femoral component of the left hip arthroplasty. 3. The remaining skeletal structures are scintigraphically unremarkable with both renal images and urinary bladder activity identified. There is calcification of the bilateral costochondral junctions. Uptake defined in the left anterior presumably abdominal wall is most consistent with contamination artifact, prominent kidney collecting system activity is considered less likely. NM/Bone Scan Whole Body IMPRESSION: 1. The increase in radiopharmaceutical defined in the bilateral shoulders, the elbow and wrist articulations bilaterally, the right hand, the cervical and thoracic spine, are consistent with degenerative arthrosis. 2. Enhanced uptake noted in the bilateral knee prostheses are consistent with normal postsurgical change in the absence of painful symptomatology. Increased tracer defined in the left hip arthroplasty may represent loosening. If infection is a diagnostic consideration, correlation with labeled leukocyte imaging is recommended. 3. There is no definitive scintigraphic evidence of diffuse axial skeletal metastatic disease. Electronically Signed: Phil Hartman, at 22:31 EST ,
== END | disposition home or self-care (01) ==
LOC: NM 08:05
PROVIDERS: PCP Internal Medicine; Referring Provider Urology; Visit Provider Urology
DX: C61 Malignant neoplasm of prostate (principal)
CPT/HCPCS: 78306; A9503

== ENCOUNTER → 2022-09-07 | Outpatient (CLI) | payer MEDICARE, SELFPAY ==
--- NOTE | 2022-09-07 13:24 | CT_ITS ---
STUDY: CT ABDOMEN AND PELVIS WITH AND WITHOUT CONTRAST REASON FOR EXAM: Male, 87 years old. PROSTATE CA RADIATION DOSAGE (If Supplied By Facility): CTDIvol = ( 25.38 ) mGy, DLP = ( 4160.78 ) mGycm TECHNIQUE: Transaxial images were obtained from the dome of the diaphragm to the symphysis pubis without oral contrast. IV 100mL Isovue-300 was administered. Sagittal and coronal images were reconstructed. Individualized dose optimization techniques were used for this CT. COMPARISON: Comparison is made with prior study dated 12/30/2019. FINDINGS: Mild degree of linear scarring at the lung bases. Coronary artery calcification. There is decreased attenuation of the liver consistent with steatosis. There are multiple small layering gallstones. Normal spleen. Normal pancreas. Stable enlargement of the left adrenal gland. Questionable 1.8 cm adenoma of the left adrenal gland. Normal right kidney. There is a 3.7 cm x 3.9 cm cyst in the upper pole of the left kidney. Stable mild rotation of the left kidney. There is a small hiatal hernia. Normal small intestine. There are scattered colonic diverticula consistent with diverticulosis. The appendix is visualized and appears normal. There is diffuse atherosclerotic calcification of the abdominal aorta and its major visceral branches, without a demonstrated aneurysm. There is an IVC filter in place. Stable mild degree of stranding along the inferior aspect of the left iliopsoas muscle. Small bilateral pelvic lymph nodes. Urinary bladder is distended. Normal abdominal wall. There are degenerative changes of the visualized lumbar spine. The patient is status post bilateral total hip replacement causing beam hardening artifacts and limited visualization of the deep pelvic structures. CT/CT Abd/Pelvis W/WO Contrast IMPRESSION: Fatty infiltration of the liver. Multiple small gallstones. Stable enlargement of the left adrenal gland suggestive of a small adenoma. Stable left renal cyst. Small bilateral pelvic lymphadenopathy. Electronically Signed: Bruce Allan MD at 14:28 EST ,
[2022-09-07 14:00] LABS: CREATININE FINGERSTICK < 0.9 mg/dL (0.70-1.30); EGFR FINGERSTICK > 60.0000 mL/min (>60)
== END | disposition home or self-care (01) ==
LOC: CT 13:22
PROVIDERS: PCP Internal Medicine; Referring Provider Urology; Visit Provider Urology
DX: C61 Malignant neoplasm of prostate (principal)
CPT/HCPCS: 74178; Q9967

== ENCOUNTER → 2023-03-05 | Outpatient (CLI) | payer MEDICARE, SELFPAY | END | disposition home or self-care (01) | LOC: LAB 13:29 | PROVIDERS: PCP Internal Medicine; Referring Provider Urology; Visit Provider Urology | DX: C61 Malignant neoplasm of prostate (principal) | CPT/HCPCS: 36415; 84153 ==

== ENCOUNTER → 2023-06-11 | Outpatient (CLI) | payer MEDICARE, SELFPAY | END | disposition home or self-care (01) | LOC: LAB 11:46 | PROVIDERS: PCP Internal Medicine; Referring Provider Nurse Practitioner; Visit Provider Nurse Practitioner | DX: C61 Malignant neoplasm of prostate (principal) | CPT/HCPCS: 36415; 84153 ==

== ENCOUNTER → 2023-12-19 | Outpatient (CLI) | payer MEDICARE, SELFPAY ==
[2023-12-19 13:11] LABS: PSA,Total- Diagnostic 1.67 ng/mL (0.0-4.0)
== END | disposition home or self-care (01) ==
LOC: LAB 11:56
PROVIDERS: PCP Internal Medicine; Referring Provider Urology; Visit Provider Urology
DX: C61 Malignant neoplasm of prostate (principal)
CPT/HCPCS: 36415; 84153